=== PATIENT | female | born 1995 | race Caucasian/White ===

== ENCOUNTER 2020-09-20 16:08 | Emergency (ER) | payer OTHER, SELFPAY ==
[2020-09-20 16:09] VITALS: BP 155/86; PULSE 112; RESP 14; TEMP 37.1; O2SAT 100; BMI 35.6
--- NOTE | 2020-09-20 17:54 | EKG12_ITS ---
Test Reason : DIZZINESS Blood Pressure : / mmHG Vent. Rate : 093 BPM Atrial Rate : 093 BPM P-R Int : 160 ms QRS Dur : 098 ms QT Int : 352 ms P-R-T Axes : 040 032 021 degrees QTc Int : 437 ms Normal sinus rhythm Normal ECG Confirmed by TOMÁS SENA, LESLIE ([id number]), health editor MILENA ACOSTA ([id number]) on 09/25/2020 9:36:02 AM Referred By: STUART Confirmed By:LESLIE ENGLAND MD
--- NOTE | 2020-09-20 17:55 | EX.ED.DYSGE1 ---
HPI History of Present Illness Chief Complaint: Dizziness Narrative Narrative: Patient presenting with 4 years of dizziness/lightheadedness. patient states that the symptoms are intermittent. Patient states he initially followed up with a primary care physician and was referred to neurology who told her she probably has POTS syndrome. She states that she was tired of seeing doctors with no diagnosis and decided not to see anybody for the last few years. Patient states that her lightheadedness/dizziness started today. She does describe it as both vertiginous and lightheadedness. She complains of generalized weakness. She is able to ambulate with a steady gait. Denies fever or chills. Denies headache or neck pain. Patient denies paresthesias. PFSH PFSH Home Medications meclizine 25 mg PO TID PRN #30 tab 09/20/20 [Rx Last Taken Unknown] Allergy/AdvReac Type Severity Reaction Status Date / Time No Known Allergies Allergy Verified 09/20/20 16:11 Social History Smoking Status: Never smoker ROS ROS ED Constitutional Constitutional ED: Denies chills, fever(s) or weight loss Eyes Eyes: Denies blurry vision or diplopia ENT ENT ED: Denies rhinorrhea or sore throat Cardiovascular Cardiovascular: Denies chest pain or palpitations Respiratory/Chest Respiratory/Chest: Denies cough, dyspnea or sputum Gastrointestinal Gastrointestinal: Reports nausea; Denies abdominal pain, constipation, diarrhea or vomiting Genitourinary Genitourinary ED: Denies dysuria or hematuria Musculoskeletal Musculoskeletal: Denies arthralgias, back pain, myalgias or neck pain Integumentary Denies abscess or rash Neurologic Neurologic: Reports headache(s); Denies paresthesias EXAM Physical Exam Const Vital Signs: 09/20/20 16:09 09/20/20 17:48 09/20/20 18:34 Temperature 98.8 F Temperature Source Temporal Pulse Rate 112 H Pulse Rate [Lying] 82 Pulse Rate [Sitting] 97 Pulse Rate [Standing] 99 Respiratory Rate 14 Respiratory Effort Normal Non-Labored Blood Pressure 155/86 H Blood Pressure [Lying] 131/71 H Blood Pressure [Sitting] 138/84 H Blood Pressure [Standing] 149/88 H Blood Pressure Mean 109 Blood Pressure Mean [Lying] 91 Blood Pressure Mean [Sitting] 102 Blood Pressure Mean [Standing] 108 Pulse Ox 100 Oxygen Delivery Method Room Air 09/20/20 19:08 09/20/20 20:18 09/20/20 20:47 Temperature Temperature Source Pulse Rate 85 80 Pulse Rate [Lying] Pulse Rate [Sitting] Pulse Rate [Standing] Respiratory Rate 16 16 16 Respiratory Effort Blood Pressure 149/88 H 116/85 H 116/85 H Blood Pressure [Lying] Blood Pressure [Sitting] Blood Pressure [Standing] Blood Pressure Mean 108 95 Blood Pressure Mean [Lying] Blood Pressure Mean [Sitting] Blood Pressure Mean [Standing] Pulse Ox 98 100 100 Oxygen Delivery Method Room Air Positive well nourished General Appearance ED: NAD AMAN Reports moist mucous membranes Negative for trauma Eyes PERRL and EOMs intact bilaterally Eyes Narrative: Nystagmus bilaterally with modified [place]-Hallpike exam Neck no lymphadenopathy and supple General: Negative for tenderness Resp normal respiratory effort and clear to auscultation bilaterally Cardio regular rate and regular rhythm Extremity normal to inspection General Extremety ED: Negative for edema or tenderness General Extremity: Negative for edema Neuro oriented x3, CN's II-XII intact bilaterally and no sensory deficits noted Sensorium / Orientation: alert Motor Exam: strength 5/5 throughout Psych mental status grossly normal Attitude: No agitated Mood & Affect: Negative for anxious Skin no rashes or lesions noted and no wounds MDM MDM MDM Narrative Medical decision making narrative: Patient does have some reproducible vertiginous symptoms on examination however she also complains of lightheadedness. Orthostatics were performed and her heart rate does go up when she stands however her blood pressures remained stable. Patient's blood work-up is unremarkable. Troponin negative. Electrolytes and renal function are normal. hCG negative. Patient felt improvement with meclizine and Phenergan. She is no longer dizzy at this time. Patient will be sent home with prescription for meclizine. She is given follow-up outpatient as she has not seen a physician in a while. Patient given return precautions. Impression: 1. Vertigo Lab Data Attestation: I reviewed the patient's lab results. Labs: Laboratory Results - last 24 hr 09/20/20 09/20/20 09/20/20 18:05 18:05 18:32 WBC 9.9 RBC 4.46 Hgb 12.8 Hct 39.9 MCV 89.5 MCH 28.7 MCHC 32.1 RDW Std Deviation 39.3 RDW Coeff of Edwin 12.1 Plt Count 325 MPV 9.8 Immature Gran % (Auto) 0.600 Neut % (Auto) 66.3 Lymph % (Auto) 24.0 [place] % (Auto) 6.9 Eos % (Auto) 1.7 Baso % (Auto) 0.5 Absolute Neuts (auto) 6.5 Absolute Lymphs (auto) 2.36 Nucleated RBC % 0 Sodium 140 Potassium 3.9 Chloride 109 H Carbon Dioxide 24.0 Anion Gap 7 BUN 10 Creatinine 0.76 Estim Creat Clear Calc 106.85 Est GFR (MDRD) Af Amer 120 Est GFR (MDRD) Non-Af 99 BUN/Creatinine Ratio 13.2 Glucose 106 Calcium 9.4 Troponin I High Sens < 3.0 L Urine Color Yellow Urine Clarity Clear Urine pH 7.0 Ur Specific [place] 1.010 Urine Protein Negative Urine Glucose (UA) Normal Urine Ketones Negative Urine Occult Blood Negative Urine Nitrite Negative Urine Bilirubin Negative Urine Urobilinogen Normal Ur Leukocyte Esterase Negative Urine RBC 0 SEEN Urine WBC 0 SEEN Ur Squamous Epith Cells 0 SEEN Urine Bacteria RARE Urine Mucus 0 SEEN Urine Test Negative Radiography Diagnostic Testing: Radiology Impression Chest X-Ray 09/20/20 18:50 IMPRESSION: No radiographic evidence of acute cardiopulmonary disease. at 2002 Reported and signed by: Dean Armstrong MD Electronically Signed: Dean Armstrong MD at 20:02 EDT Tel , Service support , Discharge Plan Triage Chief Complaint: Dizziness ED Provider: Cj Chin Dx/Rx/DC Orders Instructions: ED BPV Vertigo Prescriptions: New meclizine 25 mg tablet 25 mg PO TID PRN (Reason: dizziness) Qty: 30 RF: 0 Primary Care Provider: Care Physician,No Primary Referrals: Allyson Gonzalez MD [STAFF PHYSICIAN] - As Needed Care Physician,No Primary [Primary Care Provider] - Disposition Disposition: Home, Self Care
[2020-09-20] MEDS: proMETHazine 25 MG Tablet PO (18:06)
[2020-09-20] MEDS: Meclizine HCl 25 MG Tablet PO (18:06)
[2020-09-20 18:12] LABS: Absolute Lymphocyte Count 2.36 X10^3/uL (0.83-4.51); Absolute Neutrophil Count 6.5 X10^3/uL (2.0-7.7); Basophil# 0.05 X10^3/uL; Basophil% 0.5 % (0-1); Eosinophil# 0.17 X10^3/uL; Eosinophils% 1.7 % (0-5); Hematocrit 39.9 % (37-47); Hemoglobin 12.8 g/dL (12.0-15.0); Lymphocyte # 2.36 X10^3/ul (0.83-4.51); Mean Corp Hgb Conc 32.1 g/dL (32-36); Mean Corpuscular Hgb 28.7 pg (27.0-32.0); Mean Corpuscular Volume 89.5 fL (81-99); Mean Platelet Vol. 9.8 fl (6.2-12.0); Monocyte# 0.68 X10^3/uL; Monocyte% 6.9 % (0-10); NRBC Flagged by Analyzer 0 % (0-5); Neutrophil # 6.53 X10^3/uL (2.7-7.7); Neutrophil % 66.3 % (47-70); Platelet Count 325 K/mm3 (150-450); RBC Distribution Width CV 12.1 % (11.6-14.6); RBC Distribution Width SD 39.3 fl (35.1-43.9); Red Blood Count 4.46 M/mm3 (4.2-5.4); White Blood Count 9.9 K/mm3 (4.4-11.0)
[2020-09-20 18:28] LABS: Anion Gap 7 (5-15); BUN 10 mg/dL (7-18); BUN/Creat Ratio 13.2 RATIO (10-20); Calcium,Total 9.4 mg/dL (8.5-10.1); Chloride 109 mmol/L (98-107); Creatinine, Serum 0.76 mg/dL (0.55-1.02); EST Glomerular Filtration Rate 99 mL/min (>60); Est Glom Filt Rate - Afr Amer 120 mL/min (>60); Estimated Creatinine Clearance 106.85 ml/min; Glucose 106 mg/dL (74-106); Potassium 3.9 mmol/L (3.5-5.1); Sodium Level 140 mmol/L (136-145); Troponin-I HS < 3.0 pg/mL (3.0-53.7)
[2020-09-20 18:34] VITALS: BP 131/71; BP 138/84; BP 149/88; PULSE 82; PULSE 97; PULSE 99
[2020-09-20 18:46] LABS: Mucous, Urine 0 SEEN /hpf (<or=2+); Red Blood Cells-Urine 0 SEEN /hpf (0-5); Squamous Epithelial Cells - UA 0 SEEN /hpf (5-10); White Blood Cells 0 SEEN /hpf (0-5)
--- NOTE | 2020-09-20 18:50 | RAD_ITS ---
HISTORY: weakness EXAMINATION/TECHNIQUE: XR Chest 1 View: Portable upright AP chest x-ray COMPARISON: 01/21/17 FINDINGS: LINES/DEVICES: None. LUNGS: No consolidation, edema or effusion. No pneumothorax. MEDIASTINUM AND CARDIOVASCULAR STRUCTURES: Cardiac silhouette not enlarged. Central airways and mediastinal contour are unremarkable. BONES AND SOFT TISSUES: No acute bony abnormalities. RAD/Chest 1 View (Portable) IMPRESSION: No radiographic evidence of acute cardiopulmonary disease. at 2003 Reported and signed by: Dean Armstrong MD Electronically Signed: Dean Armstrong MD at 20:02 EDT Tel , Service support ,
[2020-09-20 18:53] LABS: Color, Urine Yellow (Yellow); Glucose, Dipstick Normal (Normal); Ketone-Dipstick Negative (Negative); Leukocyte Esterase-Dipstick Negative /ul (Negative); Nitrite-Dipstick Negative (Negative); Occult Blood-Urine Negative /ul (Negative); Protein-Dipstick Negative (Negative); Urine Bilirubin Dipstick Negative (Negative); Urine Clarity Clear (Clear); Urine Urobilinogen Normal (Normal)
[2020-09-20 19:08] VITALS: BP 149/88; RESP 16; O2SAT 98
[2020-09-20 19:11] LABS: Bacteria RARE /hpf (None Seen)
[2020-09-20 19:12] LABS: Internal QC Validated? YES +Cl - CLEAR BKGD; Pregnancy, Urine Negative Negative
[2020-09-20 20:18] VITALS: BP 116/85; PULSE 85; RESP 16; O2SAT 100
[2020-09-20 20:47] VITALS: BP 116/85; PULSE 80; RESP 16; O2SAT 100
== END 2020-09-20 21:01 | disposition home or self-care (01) ==
PROVIDERS: Emergency Provider Student in an Organized Health Care Education/Training Program
DX: R42 Dizziness and giddiness (principal)
CPT/HCPCS: 71045; 80048; 81001; 81025; 84484; 85025; 93005; 99284; A4216

== ENCOUNTER → 2022-11-26 | Outpatient (CLI) | payer OTHER, SELFPAY ==
[2022-11-28 22:06] LABS: Chlamydia By Nucleic Acid AMP Negative (Negative); Gonococcus By Nucleic Acid AMP Negative (Negative)
== END | disposition home or self-care (01) ==
PROVIDERS: Visit Provider Obstetrics & Gynecology
DX: Z34.90 Encounter for supervision of normal pregnancy, unspecified, unspecified trimester (principal)
CPT/HCPCS: 87086; 87088; 87491; 87591

== ENCOUNTER → 2022-12-12 | Outpatient (CLI) | payer OTHER, SELFPAY ==
[2022-12-12 11:02] LABS: Absolute Neutrophil Count 8.3 X10^3/uL (2.0-7.7); Basophil# 0.04 X10^3/uL; Basophil% 0.4 % (0-1); Eosinophil# 0.09 X10^3/uL; Eosinophils% 0.8 % (0-5); Hematocrit 36.1 % (37-47); Hemoglobin 11.8 g/dL (12.0-15.0); Mean Corp Hgb Conc 32.7 g/dL (32-36); Mean Corpuscular Hgb 29.6 pg (27.0-32.0); Mean Corpuscular Volume 90.5 fL (81-99); Mean Platelet Vol. 9.9 fl (6.2-12.0); Monocyte# 0.42 X10^3/uL; Monocyte% 3.7 % (0-10); NRBC Flagged by Analyzer 0 % (0-5); Neutrophil # 8.25 X10^3/uL (2.7-7.7); Neutrophil % 72.5 % (47-70); Platelet Count 313 K/mm3 (150-450); RBC Distribution Width CV 12.4 % (11.6-14.6); RBC Distribution Width SD 40.6 fl (35.1-43.9); Red Blood Count 3.99 M/mm3 (4.2-5.4); White Blood Count 11.4 K/mm3 (4.4-11.0)
[2022-12-12 12:00] LABS: HIV - WCH Non-Reactive (Nonreactive); Hepatitis B Surface Antigen Non-Reactive (Nonreactive); Hepatitis C Antibody Non-Reactive (Nonreactive); Rubella IgG Reactive (Nonreactive); Syphilis Antibodies Non-reactive
[2022-12-12 19:03] LABS: Hemoglobin A1c 5.3 % (3.8-5.6)
== END | disposition home or self-care (01) ==
LOC: PAVLAB 10:47
PROVIDERS: Referring Provider Obstetrics & Gynecology; Visit Provider Obstetrics & Gynecology
DX: Z34.90 Encounter for supervision of normal pregnancy, unspecified, unspecified trimester (principal)
CPT/HCPCS: 36415; 83036; 85025; 86703; 86762; 86780; 86803; 86850; 86900; 86901; 87340

== ENCOUNTER → 2023-03-27 | Outpatient (CLI) | payer OTHER, SELFPAY ==
--- OUTSIDE RECORDS SUMMARY | 2023-03-27 07:35 | XMS RPT_ITS | CCD ---
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 Encounter Wt Readings: Date: Wt: 02/19/2021 230 lb (104.3 kg) 11/13/2020 227 lb (103 kg) Physical Exam HENT: Head: Normocephalic. Eyes: Pupils: Pupils are equal, round, and reactive to light. Cardiovascular: Rate and Rhythm: Normal rate and regular rhythm. Pulses: Radial pulses are 2+ on the right side and 2+ on the left side. Dorsalis pedis pulses are 2+ on the right side and 2+ on the left side. Heart sounds: Normal heart sounds, S1 normal and S2 normal. Pulmonary: Effort: Pulmonary effort is normal. No accessory muscle usage or respiratory distress. Breath sounds: Normal breath sounds. Abdominal: General: Bowel sounds are normal. Palpations: Abdomen is soft. Musculoskeletal: General: Normal range of motion. Cervical back: Normal range of motion. Right lower leg: No edema. Left lower leg: No edema. Skin: General: Skin is warm and dry. Neurological: Mental Status: She is alert and oriented t (more content not included)... [facility] 02-19-2021 Note HNO ID: [id number] Author: Shelley Thomas APRN.QUALITY CONTROL TECHNICIAN Service: ? Author Type: Nurse Practitioner Type: Progress Notes Filed: 02/21/2021 10:15 AM Note Text: [facility] Cardiology ([facility]) [address] [facility] [id number] OUTPATIENT VISIT February 19, 2021 2:00 PM Chief Complaint Patient presents with: New Patient: Lightheaded, palpatations History of Present Illness: Long Garcia is a very pleasant 25 year old female who presents for cardiology evaluation. She has a history of lightheadedness and palpitations for about the past 4 years. She has been evaluated by neurology in the past with a tilt table test and was told she may have POTS. Report is unavailable for review. She presents today due to ongoing symptoms. She is recently completed a monitor, unremarkable for arrhythmia. She is also completed an echocardiogram which revealed grossly normal structure and function. She explains she can have palpitations but not necessarily with position change. She also has constant lightheadedness on some days but not others. Lightheadedness does not correlate with position change. She cannot think of any exacerbating triggers for her symptoms or anything that improves symptoms. She reports staying hydrated. Has never been noted to have low blood pressures. She has a mild discomfort in her left flank area that does not correlate with exertion or other symptoms. We reviewed conservative treatments for POTS. We are going to try very low-dose propranolol for symptom management. Could consider Florinef or Corlanor for true POTs with orthostatic hypotension. I also recommend she repeat a neurology evaluation as she is very limited by her lightheadedness. PAST MEDICAL HISTORY Diagnosis Date - Vesicoureteral reflux PAST SURGICAL HISTORY Procedure Laterality Date - TOOTH EXTRACTION wisdom teeth - URINARY SURGERY HX VUR FAMILY HISTORY Problem Relation Age of Onset - Hypertension Mother - Hyperlipidemia Mother - other (prediabetes) Mother - other (prediabetes) Father - Hypertension Maternal Grandmother - Hyperlipidemia Maternal Grandmother - other (cva) Maternal Grandmother - Thyroid Maternal Grandfather - Celiac Disease Maternal Grandfather - other (tobacco use) Maternal Grandfather - Thyroid Paternal Grandmother - other (atrial fib) Paternal Grandmother - Breast Cancer Paternal Grandmother - Diabetes Paternal Grandmother - Diabetes Paternal Grandfather - Hypertension Paternal Grandfather - Leukemia Paternal Grandfather - Thyroid Cancer Paternal Aunt - Thyroid Cancer Paternal Aunt - Thyroid Maternal Aunt Social History Tobacco Use - Smoking status: Never Smoker - Smokeless tobacco: Never Used Vaping Use - Vaping Use: Never used Substance Use Topics - Alcohol use: Not Currently - Drug use: Not Currently Cardiac Risk Factors: ALLERGIES No Known Allergies Medications: Current Outpatient Medications Medication Sig Dispense Refill - propranolol (INDERAL) 20 mg tablet Take 0.5 tablets by mouth twice daily. 15 tablet 0 Current Facility-Administered Medications Medication Dose Route Frequency Provider Last Rate Last Admin - perflutren lipid microspheres 1.3 mL in NaCl (PF) 0.9% 10 mL injection (DEFINITY) INTRAVENOUS DIRECTED PRN Rachel Moon, WRAPPER SORTER.QUALITY CONTROL TECHNICIAN - sodium chloride 0.9 % (flush) 10 mL (BD POSIFLUSH) 10 mL INTRAVENOUS DIRECTED PRN Rachel Moon, WRAPPER SORTER.QUALITY CONTROL TECHNICIAN Review of Systems Constitutional: Negative for chills, diaphoresis, fever, malaise/fatigue and weight loss. HENT: Negative for congestion, ear pain, nosebleeds, sinus pain and sore throat. Eyes: Negative for pain. Respiratory: Negative for cough, shortness of breath and wheezing. Cardiovascular: Positive for palpitations. Negative for chest pain, orthopnea, claudication, leg swelling and PND. Gastrointestinal: Negative for abdominal pain, blood in stool, constipation, diarrhea, heartburn, melena, nausea and vomiting. Genitourinary: Negative for hematuria. Musculoskeletal: Negative for falls. Neurological: Positive for dizziness. Negative for tingling, sensory change, speech change, focal weakness, loss of consciousness, weakness and headaches. Endo/Heme/Allergies: Does not bruise/bleed easily. Psychiatric/Behavioral: Negative for depression, memory loss and suicidal ideas. The patient is not nervous/anxious and does not have insomnia. Physical Examination: Vitals:BP 140/74 Pulse 96 Ht 5' 6 (1.68m) Wt 230 lb (104.3kg) LMP 10/30/2020 BMI 37.14 kg/(m2). BP w/Orthostatic Vitals Date and Time Orthostatic BP Orthostatic Pulse BP Pulse BP Position BP Site BP Cuff Size 02/19/21 1359 -- -- 140/74 96 Sitting Right Arm Large Adult Last 2 Encounter Wt Readings: Date: Wt: 02/19/2021 230 lb (104.3 kg) 11/13/2020 227 lb (103 kg) Physical Exam HENT: (more content not included)... [facility] 11-17-2020 Note HNO ID: [id number] Author: Ashlee Golden MD Service: Interventional Cardiology Author Type: Physician Type: Procedures Filed: 12/21/2020 10:21 AM Note Text: Patient Name: Long Garcia : 1995 Ordering Provider: RACHEL MOON Indication: R00.2 Palpitations Type of Monitor: Extended Monitoring-Zio Patch Enrollment Dates: 11/23/2020-12/07/2020 [facility] 11-13-2020 Note HNO ID: [id number] Author: Rachel Moon APRN.QUALITY CONTROL TECHNICIAN Service: ? Author Type: Nurse Practitioner Type: Progress Notes Filed: 11/13/2020 7:50 PM Note Text: This is a 25 year old female who presents today with: Patient presents with: Dizziness: x 4 years, has been to Neurology and had tilt table testing done, was told could be POTS but no formal dx HISTORY OF PRESENT ILLNESS: Long Garcia is a 25 year old female. Patient presents with: Dizziness: x 4 years, has been to Neurology and had tilt table testing done, was told could be POTS but no formal dx Has been having lightheadedness for the last 4 years. She has been to doctors. Has been to ENT, had some hearing tests. Doesn't think found vertigo. Went to neurology. Sent for a tilt-table tests. Questioned if she could have POTS. Refers that she never passed out from symptoms. Advised to take salt pills -- which made her sick/vomit. Hasn't had any further testing in the last two years. Initally seemed to improve, but since November/December of last year, symptoms seemed to worsen again. Now she is trying to figure it out again. Refers when she is lightheaded, she will tire out quickly. No spinning. Refers that it just feels like she is unsteady. Will feel like she is moving to the side. When stationary in a car, will feel like the car is going backwards. Refers that sometimes will feel like it is higher. Sometimes will get a pain in the left chest wall -- tightness. Refers that she will get hot with it. Will get some clamminess. Occ SOB. Refers that she will usually lay down, which will helps. Refers usually will happen when standing up. Tilt table through the [facility]. Dr. Lance w/ [facility]. Neurology. Has never had an echo. Has never had a home monitor. PAST MEDICAL HISTORY: PAST MEDICAL HISTORY Diagnosis Date - Vesicoureteral reflux PAST SURGICAL HISTORY Procedure Laterality Date - TOOTH EXTRACTION wisdom teeth - URINARY SURGERY HX VUR ALLERGIES Patient has no known allergies. MEDICATIONS No current outpatient medications on file. No current facility-administered medications for this visit. FAMILY HISTORY Problem Relation Age of Onset - Hypertension Mother - Hyperlipidemia Mother - other (prediabetes) Mother - other (prediabetes) Father - Hypertension Maternal Grandmother - Hyperlipidemia Maternal Grandmother - other (cva) Maternal Grandmother - Thyroid Maternal Grandfather - Celiac Disease Maternal Grandfather - other (tobacco use) Maternal Grandfather - Thyroid Paternal Grandmother - other (atrial fib) Paternal Grandmother - Breast Cancer Paternal Grandmother - Diabetes Paternal Grandmother - Diabetes Paternal Grandfather - Hypertension Paternal Grandfather - Leukemia Paternal Grandfather - Thyroid Cancer Paternal Aunt - Thyroid Cancer Paternal Aunt - Thyroid Maternal Aunt Social History Tobacco Use - Smoking status: Never Smoker - Smokeless tobacco: Never Used Vaping Use - Vaping Use: Never used Substance Use Topics - Alcohol use: Not Currently - Drug use: Not Currently EXAM: BP 128/90 Pulse 80 Resp 18 Wt 103 kg (227 lb) LMP 10/30/2020 PHYSICAL EXAM: General Appearance: Well appearing, alert, in no acute distress, well-hydrated, well nourished.. Skin: Skin color, texture, turgor normal, no suspicious rashes or lesions. Head: Normocephalic, no masses, lesions, tenderness or abnormalities. Eyes: Anicteric sclera. Pupils are equally round and reactive to light. Extraocular movements are intact. . Ears: External ears normal, canals clear, Normal TMs bilaterally. Oropharynx: Lips, mucosa, and tongue normal, teeth and gums normal, oropharynx normal. Neck: Supple, no adenopathy; thyroid symmetric, normal size, no bruits. Lungs: Lungs clear to auscultation. No wheezing, rhonchi, rales.. Heart: RRR without murmur, gallop, or rubs. No ectopy. Abdomen: Abdomen soft, non-tender. Bowel sounds normal. No masses, organomegaly. Extremities: No deformities, edema, skin discoloration, clubbing or cyanosis. Good capillary refill. . Neurologic: Gait normal. ASSESSMENT/PLAN: 1. Lightheadedness - ICD9: 780.4, ICD10: R42 (primary diagnosis) Get up-to-date labs. She reports that neurology previously was suspecting POTS. She is unsure what tilt table showed. We will go ahead and refer to cardiology for further evaluation. EKG - SR without ST changes or ectopy. - CBC + DIFF - COMP METABOLIC PANEL - FERRITIN BLD - IRON + TIBC - ECHO - PERFLUTREN LIPID MICROSPHERES 1.1 MG/ML INJECTION IN NS 10 ML - SODIUM CHLORIDE 0.9 % (FLUSH) INJECTION SYRINGE - CONSULT TO CARDIOLOGY 2. Palpitations - ICD9: 785.1, ICD10: R00.2 - ECG COMPLETE - TSH BLD - T4 FREE/FREE THYROX - CBC + DIFF - COMP METABOLIC PANEL - MAGNESIUM BLD - FERRITIN BLD - IRON + TIBC - ECHO - PERFLUTREN LIPID MICROSPHERES 1.1 MG/ML INJECTION IN (more content not included)... [facility] Orthostatic lightheadedness- Primary Dizziness and giddiness [facility] Screening, , for malformation by ultrasound Encounter for routine screening for malformation using ultrasonics documented in this encounter [facility] Summary Purpose Family History No Family History Records FoundNo Family History Records FoundNo Family History Records FoundNo Family History Records FoundNo Family History Records Found Advance Directives No Advanced Directives Records FoundNo Advanced Directives Records FoundNo Advanced Directives Records FoundNo Advanced Directives Records FoundNo Advanced Directives Records Found Medications Administered Section Inactive Administered Medications - up to 3 most recent administrations Medication Order MAR Action Action Date Dose Rate Site acetylcholine 10% solution - cchs compounding 20 mL, IRRIGATION, ONE TIME, 1 dose, Starting on Fri04/13/21 at 1013, Until 05/28/21 at 1539, Protect from Light. Refrigerate Given 05/28/2021 3:39 PM EDT 20 mL Additional Source Comments INFORMATION SOURCE (unrecogn ized section and content) DATE CREATED AUTHOR AUTHOR'S ORGANIZ ATION 08/11/2017 [facility] DATE CREATED AUTHOR AUTHOR'S ORGANIZ ATION 08/12/2017 [facility] DATE CREATED AUTHOR AUTHOR'S ORGANIZ ATION 07/18/2021 [facility] DATE CREATED AUTHOR AUTHOR'S ORGANIZ ATION 03/16/2023 [facility] Source Comments (unrecognize d section and content) In the event this informatio n is protected by the Federal Confidentiality of Alcohol and Drug Abuse Patient Records regulations: The Federal rules restrict any use of the information to criminally investigate or prosecute any alcohol or drug abuse patient.[facility] the event this information is protected by the Federal Confidentiality of Alcohol and Drug Abuse Patient Records regulations: The Federal rules restrict any use of the information to criminally investigate or prosecute any alcohol or drug abuse patient.[facility] the event this information is protected by the Federal Confidentiality of Alcohol and Drug Abuse Patient Records regulations: The Federal rules restrict any use of the information to criminally investigate or prosecute any alcohol or drug abuse patient.[facility] Reason for Visit (unrecogniz ed section and content) Specialty Diagnoses / Procedures Referred By Contsherri t Referred To Contact Neurology / NEUROMUSCULAR Diagnoses Encounter for general adult medical examination without abnormal findings VM QSARt Procedures TESTING AUTONOMIC NERVOUS SYSTEM FUNCTION NEUR QSART Verna Carter MD [address] [place] [address] [facility] [address] [place] [address] Referral ID Status Reason Start Date Expiration Date Visits Requested Visits Authorized [id number] Authorized Clearance Not Met - Admin/Chairm an/Director Advise to Postpone/Res chedule or Not Proceed 04/18/2021 05/08/2022 4 4 Care Teams (unrecognized sec tion and content) Charge Nurse Relationship Specialty Start Date End Date Wanda Fritz [id number] [place], [place] [id number] PCP - General Pediatrics 01/21/17 Charge Nurse Relationship Specialty Start Date End Date Wanda Fritz [address] [place] [address] PCP - General Pediatrics 01/21/17 Charge Nurse Relationship Specialty Start Date End Date No Primary Care[place] [address] PCP - General Pediatrics 01/30/23 FOR RECORDS PERTAINING TO PATIENTS WHO ARE OR HAVE BEEN ENROLLED IN A CHEMICAL DEPENDENCY/SUBSTANCEABUSE PROGRAM, SOME INFORMATION MAY BE OMITTED. This clinical summary was aggregated from multiple sources. Caution should be exercised in using it in the provision of clinical care. This summary normalizes information from multiple sources, and as a consequence, information in this document may materially change the coding, format and clinical context of patient data. In addition, data may be omitted in some cases. CLINICAL DECISIONS SHOULD BE BASED ON THE PRIMARY CLINICAL RECORDS. [facility] [employer] [facility]. provides no warranty or guarantee of the accuracy or completeness of information in this document.
[2023-03-27 08:14] LABS: Absolute Lymphocyte Count 1.76 X10^3/uL (0.83-4.51); Absolute Neutrophil Count 7.8 X10^3/uL (2.0-7.7); Basophil# 0.04 X10^3/uL; Basophil% 0.4 % (0-1); Eosinophil# 0.11 X10^3/uL; Eosinophils% 1.1 % (0-5); Hemoglobin 10.3 g/dL (12.0-15.0); Lymphocyte # 1.76 X10^3/ul (0.83-4.51); Lymphocyte % 17.2 % (19-41); Mean Corp Hgb Conc 32.2 g/dL (32-36); Mean Corpuscular Hgb 29.4 pg (27.0-32.0); Mean Corpuscular Volume 91.4 fL (81-99); Mean Platelet Vol. 10.2 fl (6.2-12.0); Monocyte# 0.42 X10^3/uL; Monocyte% 4.1 % (0-10); NRBC Flagged by Analyzer 0 % (0-5); Neutrophil # 7.83 X10^3/uL (2.7-7.7); Neutrophil % 76.3 % (47-70); Platelet Count 320 K/mm3 (150-450); RBC Distribution Width CV 12.8 % (11.6-14.6); RBC Distribution Width SD 41.7 fl (35.1-43.9); White Blood Count 10.3 K/mm3 (4.4-11.0)
[2023-03-27 08:34] LABS: Glucose Challenge Gest 1H 50g 178 mg/dL (70-140)
[2023-03-27 09:15] LABS: HIV - WCH Non-Reactive (Nonreactive); Syphilis Antibodies Non-reactive
== END | disposition home or self-care (01) ==
LOC: PAVLAB 07:33
PROVIDERS: Referring Provider Nurse Practitioner Women's Health; Visit Provider Nurse Practitioner Women's Health
DX: Z34.90 Encounter for supervision of normal pregnancy, unspecified, unspecified trimester (principal)
CPT/HCPCS: 36415; 82950; 85025; 86703; 86780

== ENCOUNTER → 2023-05-13 | Outpatient (CLI) | payer OTHER, SELFPAY ==
[2023-05-13 08:54] LABS: Absolute Lymphocyte Count 1.87 X10^3/uL (0.83-4.51); Basophil# 0.03 X10^3/uL; Basophil% 0.3 % (0-1); Eosinophil# 0.11 X10^3/uL; Eosinophils% 1.1 % (0-5); Hematocrit 33.8 % (37-47); Lymphocyte # 1.87 X10^3/ul (0.83-4.51); Lymphocyte % 19.3 % (19-41); Mean Corp Hgb Conc 32.5 g/dL (32-36); Mean Corpuscular Hgb 28.6 pg (27.0-32.0); Mean Platelet Vol. 9.9 fl (6.2-12.0); Monocyte% 6.2 % (0-10); NRBC Flagged by Analyzer 0 % (0-5); Neutrophil # 7.02 X10^3/uL (2.7-7.7); Neutrophil % 72.4 % (47-70); Platelet Count 339 K/mm3 (150-450); RBC Distribution Width CV 13.3 % (11.6-14.6); RBC Distribution Width SD 42.8 fl (35.1-43.9); Red Blood Count 3.84 M/mm3 (4.2-5.4); White Blood Count 9.7 K/mm3 (4.4-11.0)
== END | disposition home or self-care (01) ==
LOC: PAVLAB 08:37
PROVIDERS: Referring Provider Advanced Practice Midwife; Visit Provider Advanced Practice Midwife
DX: O99.019 Anemia complicating pregnancy, unspecified trimester (principal); Z3A.00 Weeks of gestation of pregnancy not specified
CPT/HCPCS: 36415; 85025

== ENCOUNTER → 2023-05-28 | Outpatient (CLI) | payer OTHER, SELFPAY | END | disposition home or self-care (01) | LOC: LABSPEC 17:45 | PROVIDERS: Visit Provider Obstetrics & Gynecology | DX: Z34.00 Encounter for supervision of normal first pregnancy, unspecified trimester (principal) | CPT/HCPCS: 87081 ==

== ENCOUNTER 2023-06-19 15:42 | Outpatient (CLI) | payer OTHER, SELFPAY ==
[2023-06-19 16:12] VITALS: BMI 37.9
[2023-06-19 16:24] VITALS: BP 131/74; PULSE 86
[2023-06-19 16:25] VITALS: TEMP 36.4
--- NOTE | 2023-06-19 17:14 | OB.TRI.PN_ITS ---
Progress Notes Progress Note: Patient presents for triage evaluation secondary to decresaed movement FHT: 140 Moderate variability reactive no decelerations category I tracing [place]: irregular Contractions Assessment and plan: decreased movement- now feeling some, Reactive NST, reassuring maternal and status patient discharged to home to follow-up as scheduled, reviewed kick count precautions. See problem list details for additional plan information. Charges/Coding Procedures Urinary/Genital 52xxx-59xxx: [id number] non-stress test Interp
== END 2023-06-19 17:15 | disposition home or self-care (01) ==
LOC: WPOUT 15:49 → WP 15:49
PROVIDERS: Referring Provider Obstetrics & Gynecology; Visit Provider Obstetrics & Gynecology
DX: O36.8190 Decreased fetal movements, unspecified trimester, not applicable or unspecified (principal); Z3A.00 Weeks of gestation of pregnancy not specified
CPT/HCPCS: 59050; 99221; G0378

== ENCOUNTER 2023-06-20 21:30 | Outpatient (CLI) | payer OTHER, SELFPAY ==
[2023-06-20 21:51] VITALS: BMI 37.5
[2023-06-20 22:01] VITALS: BP 134/81; PULSE 107
--- NOTE | 2023-06-21 02:22 | OB.TRI.HP_ITS ---
HPI - General General Chief Complaint: contractions HPI Narrative LONG TUTTLE, is a 27 F who presents at 39.6 with contractions discomforts, not worsening. +FM denies LOF/vb Maternal Data Information FLOR Calculator Estimated Delivery Date Method Current WG Current Estimate 06/22/23 LMP (Certain) 39w 6d Other Estimates 06/27/23 Ultrasound #1 39w 1d PFSH PFSH Medical History Congenital abnormality ureter Home Medications multivit-min no.71-iron fum 28 mg-folate no.1 1 mg-dha 300 mg capsule (PNV- [place]) cap PO 11/26/22 [History Last Taken Unknown] blood sugar diagnostic (Blood Glucose Test strips) #120 ea 03/27/23 [Rx Last Taken Unknown] blood-glucose meter #1 ea 03/27/23 [Rx Last Taken Unknown] lancets #200 ea 03/27/23 [Rx Last Taken Unknown] Allergy/AdvReac Type Severity Reaction Status Date / Time No Known Allergies Allergy Verified 06/10/23 08:05 Family History Grandmother Breast cancer, Onset Age: 70 Paternal Thyroid disorder Paternal- hyperthyroid Aunt Cancer Maternal - thyroid Surgical History [place] teeth removed Social History adopted: No household members: spouse current occupational status: employed current occupation: [employer] current occupational exposures/hazards: No pets and animals: Yes (Not managing litterbox while ) pets and animals: cat(s) and dog(s) history of recent travel: No sexually active: Yes Smoking Status: Never smoker alcohol intake: former year quit: 2019 details: Only social /occasional intake before Quit 3 years ago. 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 [employer] History 1 Elective abortions Hx Para 0 Spontaneous abortions Hx # Term Pregnancies Ectopic pregnancies Hx # Pregnancies Multiple births # of living children Visit Details Expected Delivery Route/Plan Labor Preferences- CB/BF classes: enc labor support person: Alberto labor intervention preferences: [] pain management options preferred: limited intervention cut cord/dad catch: cord : yes PP control planned: discussed discussed possible routes of delivery and associated risks: [] special requests: [] Plans Covid status: [] Flu vaccine: no Tdap vaccine: [] Rhogam: na LARC form signed: yes movement and labor precautions reviewed. Problem list reviewed and updated with the most current plan of care details and appropriate orders placed. Relevant counseling for the gestational age provided. Continue routine care and follow up unless otherwise noted in visit notes/problem list details OB Flowsheet Initial Weight: Not Recorded Date -?-?-?-?-?-?-?-?-?-?-?-?- EGA Weight BP Urine Prot -?-?-?-?-?-?-?-?-?--?-?-?- Glucose FHR FuHt Pres Dilation -?-?-?-?-?-?-?-?-?-?-?-?- Effaced St Visit Note 11/26/22 -?-?-?-?-?-?-?-?-?-?-?-?- 10w 2d 228 lb 2 oz 155/88 -?-?-?-?-?-?-?-?-?-?-?-?- 150 -?-?-?-?-?-?-?-?-?-?-?-?- SM- CRL cons wit h lmp 12/27/22 -?-?-?-?-?-?-?-?-?-?-?-?- 14w 5d 226 lb 2 oz 135/86 Nega tive -?-?-?-?-?-?-?-?-?-?-?-?- Negative 159 -?-?-?-?-?-?-?-?-?-?-?-?- JV- no cramping or spotting. Anatomy ultrasound ordered. 01/30/23 -?-?-?-?-?-?-?-?-?-?-?-?- 19w 4d 224 lb 6 oz 134/84 Nega tive -?-?-?-?-?-?-?-?-?-?-?-?- Negative 147 -?-?-?-?-?-?-?-?-?-?-?-?- MH-No VB. Feelin g some flutters. Denies concerns. M US today 02/27/23 -?-?-?-?-?-?-?-?-?-?-?-?- 23w 4d 225 lb 6 oz 134/82 Nega tive -?-?-?-?-?-?-?-?-?-?-?-?- Negative 145 -?-?-?-?-?-?-?-?-?-?-?-?- MH-No VB. Robe Muñiz M. She is feeling much stress due to abnormal US of brain-sees [facility] 03/05. 03/27/23 -?-?-?-?-?-?-?-?-?-?-?-?- 27w 4d 227 lb 118/74 Negative -?-?-?-?-?-?-?-?-?-?-?-?- Negative 156 27 -?-?-?-?-?-?-?-?-?-?-?-?- -No VB, LOF. G ood FM. States sees tx again next week and if still abnormal US of brain will get amnio/NIPT. 28 wk labs pending. 04/16/23 -?-?-?-?-?-?-?-?-?-?-?-?- 30w 3d 229 lb 8 oz 126/80 Nega tive -?-?-?-?-?-?-?-?-?-?-?-?- Negative 145 31 -?-?-?-?-?-?-?-?-?-?-?-?- JV- fasting gluc ose 80-90, 2hr pp levels upper 90s'-110. not needing to modify diet. no lof, vaginal bleeding, or dec fm. 04/28/23 -?-?-?-?-?-?-?-?-?-?-?-?- 32w 1d 227 lb 4 oz 129/83 Nega tive -?-?-?-?-?-?-?-?-?-?-?-?- Negative 142 32 -?-?-?-?-?-?-?-?-?-?-?-?- JV- glucose leve ls same as last visit. has next growth scan tomorrow with MFM. no lof, vaginal bleeding, or dec fm. 05/13/23 -?-?-?-?-?-?-?-?-?-?-?-?- 34w 2d 230 lb 124/80 Negative -?-?-?-?-?-?-?-?-?-?-?-?- Negative 145 35 -?-?-?-?-?-?-?-?-?-?-?-?- KW- no vb/lof/ct x. good fm. BS remain stable. Tdap today. cont growth US q4 weeks. brain normal on last US. 05/28/23 -?-?-?-?-?-?-?-?-?-?-?-?- 36w 3d 232 lb 6 oz 128/81 Nega tive -?-?-?-?-?-?-?-?-?-?-?-?- Negative 147 37 -?-?-?-?-?-?-?-?-?-?-?-?- JV- gbs done jose carlos lee. and tomorrow is follow up us with MFM in [place]. 06/03/23 -?-?-?-?-?-?-?-?-?-?-?-?- 37w 2d 231 lb 6 oz 131/79 Nega tive -?-?-?-?-?-?-?-?-?-?-?-?- Negative 142 38 -?-?-?-?-?-?-?-?-?-?-?-?- JV- last growth ws 48th%. pt states mfm told her she graduated plan for usual 41 week IOL as needed 06/10/23 -?-?-?-?-?-?-?-?-?-?-?-?- 38w 2d 233 lb 131/85 Negative -?-?-?-?-?-?-?-?-?-?-?-?- Negative 145 39 Cephalic 3 -?-?-?-?-?-?-?-?-?-?-?-?- 80 -1 KW- no vb/ lof/ctx. good fm. labor precautions 06/16/23 -?--?-?-?-?-?-?-?-?-?-?-?- 39w 1d 232 lb 129/82 Negative -?-?-?-?-?-?-?-?-?-?-?-?- Negative 140 39 Cephalic 3 -?-?-?-?-?-?-?-?-?-?-?-?- 80 - Sm- no vb lof good fm no regular ctx BS WNL discussed expectant mangement for now, normal growth us and normal BS NST FHR Rate Baby A Baseline: 150 Variability:: Moderate Accelerations:: 15 x 15 Decelerations:: None NST Reactive:: Yes FHR Category:: Category I Assessment & Plan (1) False labor: COMMENT: irregular contraction with unchanged cervical exam. d/c home with precautions. PLAN: Patient presents for triage evaluation secondary to contractions FHT: Moderate variability reactive no decelerations category I tracing [place]: irregular Contractions, mild to occ mod to nursing palpation. Assessment and plan: Reactive NST, reassuring maternal and status patient discharged to home to follow-up in office and return with labor signs. See problem list details for additional plan information. Charges/Coding Procedures Urinary/Genital 52xxx-59xxx: 74112-31 non-stress test Interp Multi Select Codes Urinary/Genital Urinary/Genital CPT Codes: 92481-10 non-stress test Interp
--- NOTE | 2023-06-21 02:22 | OB.TRI.NOTE ---
HPI - General General Chief Complaint: contractions HPI Narrative LONG TUTTLE, is a 27 F who presents at 39.6 with contractions discomforts, not worsening. +FM denies LOF/vb Maternal Data Information FLOR Calculator Estimated Delivery Date Method Current WG Current Estimate 06/22/23 LMP (Certain) 39w 6d Other Estimates 06/27/23 Ultrasound #1 39w 1d PFSH PFSH Medical History Congenital abnormality ureter Home Medications multivit-min no.71-iron fum 28 mg-folate no.1 1 mg-dha 300 mg capsule (PNV-[place]) cap PO 11/26/22 [History Last Taken Unknown] blood sugar diagnostic (Blood Glucose Test strips) #120 ea 03/27/23 [Rx Last Taken Unknown] blood-glucose meter #1 ea 03/27/23 [Rx Last Taken Unknown] lancets #200 ea 03/27/23 [Rx Last Taken Unknown] Allergy/AdvReac Type Severity Reaction Status Date / Time No Known Allergies Allergy Verified 06/10/23 08:05 Family History Grandmother Breast cancer, Onset Age: 70 Paternal Thyroid disorder Paternal- hyperthyroid Aunt Cancer Maternal - thyroid Surgical History [place] teeth removed Social History adopted: No household members: spouse current occupational status: employed current occupation: [employer] current occupational exposures/hazards: No pets and animals: Yes (Not managing litterbox while ) pets and animals: cat(s) and dog(s) history of recent travel: No sexually active: Yes Smoking Status: Never smoker alcohol intake: former year quit: 2019 details: Only social /occasional intake before Quit 3 years ago. 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 1 Elective abortions Hx Para 0 Spontaneous abortions Hx # Term Pregnancies Ectopic pregnancies Hx # Pregnancies Multiple births # of living children Visit Details Expected Delivery Route/Plan Labor Preferences- CB/BF classes: enc labor support person: Alberto labor intervention preferences: [] pain management options preferred: limited intervention cut cord/dad catch: cord : yes PP control planned: discussed discussed possible routes of delivery and associated risks: [] special requests: [] Plans Covid status: [] Flu vaccine: no Tdap vaccine: [] Rhogam: na LARC form signed: yes movement and labor precautions reviewed. Problem list reviewed and updated with the most current plan of care details and appropriate orders placed. Relevant counseling for the gestational age provided. Continue routine care and follow up unless otherwise noted in visit notes/problem list details OB Flowsheet Initial Weight: Not Recorded Date <del>?</del> EGA Weight BP Urine Prot <del>?</del> Glucose FHR FuHt Pres Dilation <del>?</del> Effaced St Visit Note 11/26/22 <del>?</del> 10w 2d 228 lb 2 oz 155/88 <del>?</del> 150 <del>?</del> SM- CRL cons with lmp 12/27/22 <del>?</del> 14w 5d 226 lb 2 oz 135/86 Negative <del>?</del> Negative 159 <del>?</del> JV- no cramping or spotting. Anatomy ultrasound ordered. 01/30/23 <del>?</del> 19w 4d 224 lb 6 oz 134/84 Negative <del>?</del> Negative 147 <del>?</del> MH-No VB. Feeling some flutters. Denies concerns. MFM US today 02/27/23 <del>?</del> 23w 4d 225 lb 6 oz 134/82 Negative <del>?</del> Negative 145 <del>?</del> -No VB. Good FM. She is feeling much stress due to abnormal US of brain-sees [facility] 03/05. 03/27/23 <del>?</del> 27w 4d 227 lb 118/74 Negative <del>?</del> Negative 156 27 <del>?</del> -No VB, LOF. Good FM. States sees tx again next week and if still abnormal US of brain will get amnio/NIPT. 28 wk labs pending. 04/16/23 <del>?</del> 30w 3d 229 lb 8 oz 126/80 Negative <del>?</del> Negative 145 31 <del>?</del> JV- fasting glucose 80-90, 2hr pp levels upper 90s'-110. not needing to modify diet. no lof, vaginal bleeding, or dec fm. 04/28/23 <del>?</del> 32w 1d 227 lb 4 oz 129/83 Negative <del>?</del> Negative 142 32 <del>?</del> JV- glucose levels same as last visit. has next growth scan tomorrow with MFM. no lof, vaginal bleeding, or dec fm. 05/13/23 <del>?</del> 34w 2d 230 lb 124/80 Negative <del>?</del> Negative 145 35 <del>?</del> KW- no vb/lof/ctx. good fm. BS remain stable. Tdap today. cont growth US q4 weeks. brain normal on last US. 05/28/23 <del>?</del> 36w 3d 232 lb 6 oz 128/81 Negative <del>?</del> Negative 147 37 <del>?</del> JV- gbs done today. and tomorrow is follow up us with MFM in [place]. 06/03/23 <del>?</del> 37w 2d 231 lb 6 oz 131/79 Negative <del>?</del> Negative 142 38 <del>?</del> JV- last growth ws 48th%. pt states mfm told her she graduated plan for usual 41 week IOL as needed 06/10/23 <del>?</del> 38w 2d 233 lb 131/85 Negative <del>?</del> Negative 145 39 Cephalic 3 <del>?</del> 80 -1 KW- no vb/lof/ctx. good fm. labor precautions 06/16/23 <del>?</del> 39w 1d 232 lb 129/82 Negative <del>?</del> Negative 140 39 Cephalic 3 <del>?</del> 80 -1 Sm- no vb lof good fm no regular ctx BS WNL discussed expectant mangement for now, normal growth us and normal BS NST FHR Rate Baby A Baseline: 150 Variability:: Moderate Accelerations:: 15 x 15 Decelerations:: None NST Reactive:: Yes FHR Category:: Category I Assessment & Plan (1) False labor: COMMENT: irregular contraction with unchanged cervical exam. d/c home with precautions. PLAN: Patient presents for triage evaluation secondary to contractions FHT: Moderate variability reactive no decelerations category I tracing [place]: irregular Contractions, mild to occ mod to nursing palpation. Assessment and plan: Reactive NST, reassuring maternal and status patient discharged to home to follow-up in office and return with labor signs. See problem list details for additional plan information. Charges/Coding Procedures Urinary/Genital 52xxx-59xxx: 68630-04 non-stress test Interp Multi Select Codes Urinary/Genital Urinary/Genital CPT Codes: 88640-21 non-stress test Interp
== END 2023-06-20 23:45 | disposition home or self-care (01) ==
LOC: WPOUT 21:46 → WP 21:48
PROVIDERS: Visit Provider Registered Nurse
DX: O47.1 False labor at or after 37 completed weeks of gestation (principal); Z3A.39 39 weeks gestation of pregnancy
CPT/HCPCS: 59025; 59050; 99221; G0378

== ENCOUNTER 2023-06-21 05:26 | Inpatient (IN) | payer OTHER, SELFPAY ==
--- NOTE | 2023-06-20 | PLAC_PTH ---
PATIENT: LONG PRAKASH LOC: WP U#:[id number] AGE/SX: 27/F ROOM: WP003 RE06/21/[address]: Dr. Latoya Marquez DO : 1995 BED: 1 DIS: 06/24/2023 SPEC #: [id number] RECD: 06/21/23 19:46 STATUS: LETHA TIAGO #: [id number] CRISTINO: 06/20/23 00:[address]: Latoya Marquez DEPT: SURGICAL PATHOLOGY RECD BY: Antonio Ramos ENTERED: 06/23/23 08:13 SP TYPE: PLACENTA OTHR DR: No Primary Care Phys Tissues: A - Placenta, NOS B - CYST Procedures: Surgery Specimen Level III Surgery Specimen Level V HEADER OPERATION: section PRE-OP DIAGNOSIS: Corio TISSUE SUBMITTED: A- Placenta, B- Left tubal cyst MICROSCOPIC DIAGNOSIS A. Placenta: Placental disc - third trimester placenta (453 gm). - Acute vasculitis of subamniotic blood vessels. - Focal areas of intraparenchymal hemorrhage x2 (1.0 and 2.0cm in greatest dimension) Membranes - Moderate to marked acute chorioamnionitis. Umbilical cord - three blood vessels and moderate to marked acute funisitis. B. Left tubal cyst, excision: Paratubal cyst. SJ: 06/24/23 MICROSCOPIC DESCRIPTION Slides are reviewed. GROSS DESCRIPTION A. SPECIMEN: PLACENTA / CLINICAL INFORMATION: A. Weight: 2.97 kg B. Gestational Age: 39 weeks C. Sex: Female PLACENTAL WEIGHT (POST FIXATION): 453 gm PLACENTAL DIMENSIONS: 18.0 x 15.0 x 3.0 cm PLACENTAL SHAPE: Usual ovoid PLACENTAL WEIGHT FOR GESTATIONAL AGE: Within 10-99th percentile MEMBRANES - Present A. Insertion: Marginal B. Site of rupture from edge: 5.0 cm from edge of placental disc C. Color of membrane: Thomas-parsons D. Abnormalities: None UMBILICAL CORD - Present A. Color: Thomas-parsons B. Insertion: Marginal C. Length: 27.0 cm D. Diameter: 1.0 cm E. Number of vessels: Three F. Abnormalities: None PLACENTAL DISC - Present A. Color of surface: Thomas-parsons B. surface abnormalities: None C. Maternal cotyledons: Intact with minimal tears D. Attached retro placental clot: No clot E. Cut surface: Dark red and spongy F. Lesions: A thomas hemorrhagic lesion measuring 2.0cm in greatest dimension and a thomas white indurated lesion measuring 1.0cm in greatest dimension. G. Separate clot: Absent SECTIONS SUBMITTED: 1. Membrane roll 2. Cord, maternal end 3. Cord, end 4. Placental disc, and maternal surfaces, thomas-white indurated lesion 5. Placental disc, and maternal surfaces, hemorrhagic lesion 6. Placental disc, and maternal surfaces B. Received is one container labeled with the patient's name and not further designated. The specimen consists of a cyst measuring 2.5 x 2.0 x 1.5cm. Outer surface is smooth. Specimen is inked black. The cyst is filled with clear fluid. Inner cyst wall is smooth. Retail Field Supervisor sections are submitted in one cassette. JANET/ 06/23/23 TC:2 CPT: 68381,31551
[2023-06-21] VITALS (51 sets, daily range): BP systolic 98–140; BP diastolic 55–95; PULSE 88–118; RESP 16–22; TEMP 37.1–39.7; O2SAT 94–100; BMI 37.5
[2023-06-21 05:57] LABS: Absolute Lymphocyte Count 1.37 X10^3/uL (0.83-4.51); Absolute Neutrophil Count 16.2 X10^3/uL (2.0-7.7); Basophil# 0.04 X10^3/uL; Basophil% 0.2 % (0-1); Eosinophil# 0.01 X10^3/uL; Eosinophils% 0.1 % (0-5); Hematocrit 31.6 % (37-47); Hemoglobin 10.1 g/dL (12.0-15.0); Lymphocyte # 1.37 X10^3/ul (0.83-4.51); Lymphocyte % 7.2 % (19-41); Mean Corpuscular Hgb 27.6 pg (27.0-32.0); Mean Corpuscular Volume 86.3 fL (81-99); Mean Platelet Vol. 10.7 fl (6.2-12.0); Monocyte# 1.25 X10^3/uL; Monocyte% 6.6 % (0-10); NRBC Flagged by Analyzer 0 % (0-5); Neutrophil # 16.17 X10^3/uL (2.7-7.7); Neutrophil % 84.8 % (47-70); Platelet Count 329 K/mm3 (150-450); RBC Distribution Width CV 14.1 % (11.6-14.6); RBC Distribution Width SD 43.6 fl (35.1-43.9); Red Blood Count 3.66 M/mm3 (4.2-5.4)
[2023-06-21] MEDS: Lactated Ringers 1,000 ML 50 ML IV (06:13)
[2023-06-21] MEDS: LACTATED RINGERS 500 ML 999 ML IV ×2 (06:13→14:10)
[2023-06-21] MEDS: fentaNYL-bupivacaine (epidural) 100 ML BAG EPIDURAL ×2 (07:35→13:33)
[2023-06-21 08:08] LABS: Syphilis Antibodies Non-reactive
[2023-06-21] MEDS: Lactated Ringers 1,000 ML 200 ML IV ×2 (11:14→14:11)
[2023-06-21] MEDS: CHLORHEXIDINE GLUC 2% CLOTH 1 EACH TOWELETTE TOPICAL (11:24)
[2023-06-21] MEDS: Acetaminophen 500 MG Tablet PO (14:11)
--- NOTE | 2023-06-21 14:35 | CON.PCM_ITS ---
Consult Date of Consult: 06/21/23 Assessment & Plan Assessment/Plan (1) Maternal fever affecting labor: PLAN: Plan pt fully dilated, second stage developed tachycardia to 180, maternal temp to 100.5. IV fluids, and Tylenol provided. current tracing: FHT: Moderate variability reactive no decelerations category II tracing, tachycardia trending downward to 165 baseline. [place]: q3.5 minutes Contractions reviewed tracing abnormalities since last note: tachycardia A/P: triple III, suspected chorioamnionitis. -ampicillin 2g and gentamicin 5mg/kg -anticipate , discussed vacuum delivery if needed Dr. Pastrana updated on maternal fever, agrees with management, available as needed for vacuum if persistent tachycardia. currently with reassuring maternal and status, pushing well and fetus with moderate variability with pushing.
[2023-06-21] MEDS: Ampicillin 2 GM in 0.9% Normal Saline (100mL MB+) 100 ML IV ×2 (14:40→20:00)
[2023-06-21] MEDS: Gentamicin IV 300 MG in Dextrose 5%-Water (50mL Bag) 50 ML 100 MG IVPB (15:19)
[2023-06-21] MEDS: Oxytocin 15 Units/NS 250ml 15 UNITS/250 ML IV.SOLN 2 UNITS IV (15:41)
[2023-06-21] MEDS: Sodium Citrate/Citric Acid 30 ML UDC PO (16:18)
[2023-06-21] MEDS: Clindamycin 900 MG/50 ML BAG 75 MG IV (16:30)
[2023-06-21 17:35] LABS: Absolute Lymphocyte Count 1.84 X10^3/uL (0.83-4.51); Basophil# 0.04 X10^3/uL; Basophil% 0.2 % (0-1); Hematocrit 30.6 % (37-47); Hemoglobin 9.6 g/dL (12.0-15.0); Lymphocyte # 1.84 X10^3/ul (0.83-4.51); Lymphocyte % 8.9 % (19-41); Mean Corp Hgb Conc 31.4 g/dL (32-36); Mean Corpuscular Volume 89.2 fL (81-99); Mean Platelet Vol. 10.4 fl (6.2-12.0); Monocyte# 1.59 X10^3/uL; Monocyte% 7.7 % (0-10); NRBC Flagged by Analyzer 0 % (0-5); POSITIVE DIFFERENTIAL YES; Platelet Count 335 K/mm3 (150-450); RBC Distribution Width CV 14.2 % (11.6-14.6); RBC Distribution Width SD 46.3 fl (35.1-43.9); Red Blood Count 3.43 M/mm3 (4.2-5.4); White Blood Count 20.7 K/mm3 (4.4-11.0)
[2023-06-21 17:36] LABS: Differential Indicated SCAN CRITERIA MET
--- NOTE | 2023-06-21 18:06 | EX.PCM.OBRPT ---
Assessment & Plan (1) Chorioamnionitis, delivered, current hospitalization: (2) Maternal fever affecting labor: COMMENT: triple I making good progress with second stage (3) False labor: COMMENT: irregular contraction with unchanged cervical exam. d/c home with precautions. (4) Abnormal glucose complicating childbirth: COMMENT: 1 hr 178: she opted for qid testing and nutrition counseling (5) Anemia in preg-unspec: QUALIFIERS: Trimester: second trimester Qualified Code(s): O99.012 - Anemia complicating , second trimester COMMENT: Add Fe. Recheck CBC w FE studies 4 wk (6) Abnormal ultrasound: COMMENT: resolved. Ventriculomegaly w/o macrocephaly. MFM/ tx: 03/05/23:persists/stable. CMV neg. Next appt 04/02 and if persists will get NIPT/amnio-declines. Weekly BPP and recheck ventricles with MFM at 32 wk. 36 wk growth at 43% EFW and AC 30%. (7) Obesity affecting , antepartum: QUALIFIERS: Obesity type affecting : unspecified obesity Qualified Code(s): O99.210 - Obesity complicating , unspecified trimester (8) Supervision of normal first : QUALIFIERS: Trimester: second trimester Qualified Code(s): Z34.02 - Encounter for supervision of normal first , second trimester COMMENT: [id number], FLOR 06/22/23,girl Paige Alberto (9) : QUALIFIERS: Weeks of gestation: 39 weeks Qualified Code(s): Z3A.39 - 39 weeks gestation of COMMENT: Neg GBS. declined genetic & carrier testing Maternal Data Information FLOR Calculator Estimated Delivery Date Method Current WG Current Estimate 06/22/23 LMP (Certain) 39w 6d Other Estimates 06/27/23 Ultrasound #1 39w 1d Final FLOR Source: LMP Gestational age: 39 weeks 6 days Details Operative Information Date of Procedure: 06/21/23 Pre-Operative Diagnosis: 27 y/op @ 39 weeks 6 days, chorioamnionitis, failure to descend, chorioamnionitis, failed vacuum extraction Post-Operative Diagnosis: 27 y/op @ 39 weeks 6 days, chorioamnionitis, failure to descend, chorioamnionitis, failed vacuum extraction Classification: MANUEL Procedure Type: 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 There was noted foul purulent amniotic fluid and the heart rate was tachycardic with minimal variability. The decision was made to try a vacuum extraction. The patient was counseled on the risks of bruising and bleeding and the risk for an immediate section if this did not aid in delivery of the baby soon. The head was noted to be in an OP position. The head was gently turned to an JUAN position. The kiwi vacuum was placed on the head below anterior to the posterior fontanelle. 3 pulls were performed and all three were pop offs. The decision was then made to proceed with a section. A small vaginal laceration from the vacuum was noted and reapproximated with a 3-0 vicryl. A pillow was applied and the patient was brought to the OR. Epidural anesthesia was found to be adequate Gibbs catheter was placed. The patient was placed in the dorsal supine position with leftward tilt. Patient was prepped and draped in the normal sterile fashion. Pfannenstiel skin incision was made with the scalpel and carried through to the underlying layer of fascia with the scalpel. Fascia was nicked in the midline and the incision extended laterally. The rectus bellies were dissected off superiorly and inferiorly with out complication both sharply and bluntly. The peritoneum was entered digitally. The incision was stretched and a low transverse uterine incision was made with the scalpel. The 's head was delivered with the help of a hand from below atraumatically followed by the anterior and posterior shoulders without complication the rest of the infant delivered. The cord was clamped and cut and the infant was handed off to awaiting nurse. The placenta was delivered immediately following and was noted to be intact and have a three-vessel cord. The uterus was exteriorized cleared of all clots and debris, and the incision was closed in a double layer closure using #1 vicryl and #1 Monocryl. bilateral incisional extension were noted as well as a right uterine artery laceration that were also repaired. The ovaries and fallopian tubes were noted to be within normal limits with exception of a cyst on the left fallopian tube. This was removed with the bovie and sent for pathology analysis. The uterus was returned to the maternal abdomen and gutters were cleared of all clots and debris. The peritoneum was closed with 3-0 Monocryl in a running fashion. Gloves were changed prior to fascial closure. Fascia was closed with 0 PDS in a running fashion. Subcutaneous tissue was copiously irrigated and the skin was closed with 3-0 Monocryl in a subcuticular fashion. Mepilex dressing was applied without complication. Patient was taken to recovery in stable condition. Presentation: Positive for Vertex Amniotic Fluid Description: Foul-odor Placental Delivery Description: Expressed Placenta Disposition: Sent to Pathology Cord Vessel Description: 3 Vessels Cord Entanglement: None A Gender: Female (1 minute): 8 (5 minute): 9 Delayed Cord Clamping: No Multi Select Codes Urinary/Genital Urinary/Genital CPT Codes: 49888 Delivery [facility]
--- NOTE | 2023-06-21 18:11 | EX.PCM.OBRPT ---
Maternal Data Information FLOR Calculator Estimated Delivery Date Method Current WG Current Estimate 06/22/23 LMP (Certain) 39w 6d Other Estimates 06/27/23 Ultrasound #1 39w 1d Details Operative Information Indications Narrative: suspected chorioamnionitis, failed vacuumed extraction. 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 Pastrana From the start of the procedure to the end. I performed retraction, suture cutting, suction, and fundal pressure assistance during the procedure. The wound was dressed with Mepilex and the patient was brought to recovery in stable condition. See 's operative note for full details of the procedures. Presentation: Positive for Vertex Procedures Urinary/Genital 52xxx-59xxx: 28384 Delivery global pkg (CN acute care assistant.)
[2023-06-21 18:15] LABS: Differential Comment SCANNED
--- NOTE | 2023-06-21 18:15 | PCM.HP.OB ---
HPI - General General Date of Admission: 06/21/23 Date of Service: 06/21/23 Chief Complaint: contractions HPI Narrative LONG TUTTLE, is a 27 F who presents with increasing contraction intensity. Maternal Data Information FLOR Calculator Estimated Delivery Date Method Current WG Current Estimate 06/22/23 LMP (Certain) 39w 6d Other Estimates 06/27/23 Ultrasound #1 39w 1d PFSH PFSH Medical History Congenital abnormality ureter Home Medications multivit-min no.71-iron fum 28 mg-folate no.1 1 mg-dha 300 mg capsule (PNV-[place]) 1 cap PO DAILY 11/26/22 [History Last Taken 06/20/23] Allergy/AdvReac Type Severity Reaction Status Date / Time No Known Allergies Allergy Verified 06/21/23 06:47 Family History Grandmother Breast cancer, Onset Age: 70 Paternal Thyroid disorder Paternal- hyperthyroid Aunt Cancer Maternal - thyroid Surgical History [place] teeth removed Social History adopted: No household members: spouse current occupational status: employed current occupation: [employer] current occupational exposures/hazards: No pets and animals: Yes (Not managing litterbox while ) pets and animals: cat(s) and dog(s) history of recent travel: No sexually active: Yes Smoking Status: Never smoker alcohol intake: former year quit: 2019 details: Only social /occasional intake before Quit 3 years ago. substance use type: does not use well-balanced diet: about half the time caffeine: Yes Type: coffee Number of servings: 1 eating out: rarely or never during the past year weight has: remained stable what type of physical activity do you participate in: none tez/samaritan: None seatbelt use: always do you feel safe at home: Yes additional social history: Alberto [employer]- [employer] History 1 Elective abortions Hx Para 0 Spontaneous abortions Hx # Term Pregnancies Ectopic pregnancies Hx # Pregnancies Multiple births # of living children Visit Details Expected Delivery Route/Plan Labor Preferences- CB/BF classes: enc labor support person: Alberto labor intervention preferences: [] pain management options preferred: limited intervention cut cord/dad catch: cord : yes PP control planned: discussed discussed possible routes of delivery and associated risks: [] special requests: [] Plans Covid status: [] Flu vaccine: no Tdap vaccine: [] Rhogam: na LARC form signed: yes movement and labor precautions reviewed. Problem list reviewed and updated with the most current plan of care details and appropriate orders placed. Relevant counseling for the gestational age provided. Continue routine care and follow up unless otherwise noted in visit notes/problem list details OB Flowsheet Initial Weight: Not Recorded Date <del>?</del> EGA Weight BP Urine Prot <del>?</del> Glucose FHR FuHt Pres Dilation <del>?</del> Effaced St Visit Note 11/26/22 <del>?</del> 10w 2d 228 lb 2 oz 155/88 <del>?</del> 150 <del>?</del> SM- CRL cons with lmp 12/27/22 <del>?</del> 14w 5d 226 lb 2 oz 135/86 Negative <del>?</del> Negative 159 <del>?</del> JV- no cramping or spotting. Anatomy ultrasound ordered. 01/30/23 <del>?</del> 19w 4d 224 lb 6 oz 134/84 Negative <del>?</del> Negative 147 <del>?</del> MH-No VB. Feeling some flutters. Denies concerns. MFM US today 02/27/23 <del>?</del> 23w 4d 225 lb 6 oz 134/82 Negative <del>?</del> Negative 145 <del>?</del> MH-No VB. Good FM. She is feeling much stress due to abnormal US of brain-sees MFM 03/05. 03/27/23 <del>?</del> 27w 4d 227 lb 118/74 Negative <del>?</del> Negative 156 27 <del>?</del> MH-No VB, LOF. Good FM. States sees tx again next week and if still abnormal US of brain will get amnio/NIPT. 28 wk labs pending. 04/16/23 <del>?</del> 30w 3d 229 lb 8 oz 126/80 Negative <del>?</del> Negative 145 31 <del>?</del> JV- fasting glucose 80-90, 2hr pp levels upper 90s'-110. not needing to modify diet. no lof, vaginal bleeding, or dec fm. 04/28/23 <del>?</del> 32w 1d 227 lb 4 oz 129/83 Negative <del>?</del> Negative 142 32 <del>?</del> JV- glucose levels same as last visit. has next growth scan tomorrow with MFM. no lof, vaginal bleeding, or dec fm. 05/13/23 <del>?</del> 34w 2d 230 lb 124/80 Negative <del>?</del> Negative 145 35 <del>?</del> KW- no vb/lof/ctx. good fm. BS remain stable. Tdap today. cont growth US q4 weeks. brain normal on last US. 05/28/23 <del>?</del> 36w 3d 232 lb 6 oz 128/81 Negative <del>?</del> Negative 147 37 <del>?</del> JV- gbs done today. and tomorrow is follow up us with MFM in [place]. 06/03/23 <del>?</del> 37w 2d 231 lb 6 oz 131/79 Negative <del>?</del> Negative 142 38 <del>?</del> JV- last growth ws 48th%. pt states mfm told her she graduated plan for usual 41 week IOL as needed 06/10/23 <del>?</del> 38w 2d 233 lb 131/85 Negative <del>?</del> Negative 145 39 Cephalic 3 <del>?</del> 80 -1 KW- no vb/lof/ctx. good fm. labor precautions 06/16/23 <del>?</del> 39w 1d 232 lb 129/82 Negative <del>?</del> Negative 140 39 Cephalic 3 <del>?</del> 80 -1 Sm- no vb lof good fm no regular ctx BS WNL discussed expectant mangement for now, normal growth us and normal BS NST FHR Rate Baby A Baseline: 140 Variability:: Moderate Accelerations:: 15 x 15 Decelerations:: None NST Reactive:: Yes FHR Category:: Category I Uterine Activity:: q5 minutes ROS Cardiovascular Cardiovascular: Denies abdominal pain, chest pain, diaphoresis or dyspnea Respiratory/Chest Respiratory/Chest: Denies change in mental status, chest congestion, chest tightness, cough, shortness of breath at rest, shortness of breath with exertion, breast mass, breast pain, breast skin changes, breast swelling, change in breast shape or nipple discharge Genitourinary Genitourinary: Reports change in urinary stream Musculoskeletal Musculoskeletal: Reports none Integumentary Integumentary: Reports none Neurologic Neurologic: Reports none Psychiatric Psychiatric: Reports none Endocrine Endocrinology: Reports none Hematologic/Lymphatic Hematologic/Lymphatic: Reports none Allergic/Immunologic Allergic/Immunologic: Reports none Vital Signs Vital Signs Vital Signs: 06/21/23 05:16 06/21/23 05:16 06/21/23 05:16 Temperature Temperature Source Pulse Rate 95 Respiratory Rate Blood Pressure 136/81 H BP Systolic 136 BP Diastolic 81 Pulse Ox 98 06/21/23 05:16 06/21/23 05:16 06/21/23 05:16 Temperature Temperature Source Oral Pulse Rate Respiratory Rate 16 Blood Pressure BP Systolic BP Diastolic Pulse Ox 98 06/21/23 05:16 06/21/23 06:15 06/21/23 06:15 Temperature 99.0 F Temperature Source Temporal Pulse Rate Respiratory Rate 16 Blood Pressure BP Systolic BP Diastolic Pulse Ox 06/21/23 06:15 06/21/23 07:14 06/21/23 07:14 Temperature 99.1 F Temperature Source Pulse Rate 103 H Respiratory Rate Blood Pressure 140/77 H BP Systolic 140 BP Diastolic 77 Pulse Ox 06/21/23 07:15 06/21/23 07:15 06/21/23 07:19 Temperature Temperature Source Pulse Rate 107 H Respiratory Rate Blood Pressure 130/73 H BP Systolic 130 BP Diastolic 73 Pulse Ox 99 06/21/23 07:19 06/21/23 07:20 06/21/23 07:20 Temperature Temperature Source Pulse Rate 108 H 105 H Respiratory Rate Blood Pressure BP Systolic BP Diastolic Pulse Ox 98 06/21/23 07:24 06/21/23 07:24 06/21/23 07:25 Temperature Temperature Source Pulse Rate 97 100 Respiratory Rate Blood Pressure 116/66 BP Systolic 116 BP Diastolic 66 Pulse Ox 06/21/23 07:25 06/21/23 07:26 06/21/23 07:26 Temperature Temperature Source Pulse Rate 100 Respiratory Rate Blood Pressure BP Systolic BP Diastolic Pulse Ox 98 94 06/21/23 07:29 06/21/23 07:29 06/21/23 07:30 Temperature Temperature Source Pulse Rate 105 H 105 H Respiratory Rate Blood Pressure 121/75 H BP Systolic 121 BP Diastolic 75 Pulse Ox 06/21/23 07:30 06/21/23 07:34 06/21/23 07:35 Temperature Temperature Source Pulse Rate 105 H Respiratory Rate Blood Pressure 124/75 H BP Systolic 124 BP Diastolic 75 Pulse Ox 98 06/21/23 07:34 06/21/23 07:35 06/21/23 07:39 Temperature Temperature Source Pulse Rate 104 H Respiratory Rate Blood Pressure 120/71 BP Systolic 120 BP Diastolic 71 Pulse Ox 98 06/21/23 07:39 06/21/23 07:55 06/21/23 07:55 Temperature Temperature Source Pulse Rate 105 H 100 Respiratory Rate Blood Pressure 130/70 H BP Systolic 130 BP Diastolic 70 Pulse Ox 06/21/23 08:11 06/21/23 08:11 06/21/23 08:25 Temperature Temperature Source Pulse Rate 90 Respiratory Rate Blood Pressure 111/57 L 125/69 H BP Systolic 111 125 BP Diastolic 57 69 Pulse Ox 06/21/23 08:25 06/21/23 08:40 06/21/23 08:40 Temperature Temperature Source Pulse Rate 107 H 97 Respiratory Rate Blood Pressure 129/63 H BP Systolic 129 BP Diastolic 63 Pulse Ox 06/21/23 07:15 06/21/23 07:00 06/21/23 07:30 Temperature Temperature Source Pulse Rate Respiratory Rate 16 16 16 Blood Pressure BP Systolic BP Diastolic Pulse Ox 06/21/23 07:25 06/21/23 07:20 06/21/23 07:34 Temperature Temperature Source Pulse Rate Respiratory Rate 16 16 16 Blood Pressure BP Systolic BP Diastolic Pulse Ox 06/21/23 08:55 06/21/23 08:55 06/21/23 09:25 Temperature Temperature Source Pulse Rate 111 H Respiratory Rate Blood Pressure 123/63 H 98/64 BP Systolic 123 98 BP Diastolic 63 64 Pulse Ox 06/21/23 09:25 06/21/23 09:55 06/21/23 09:55 Temperature Temperature Source Pulse Rate 99 90 Respiratory Rate Blood Pressure 118/56 L BP Systolic 118 BP Diastolic 56 Pulse Ox 06/21/23 10:25 06/21/23 10:25 06/21/23 10:25 Temperature Temperature Source Pulse Rate 88 Respiratory Rate 16 Blood Pressure 113/59 L BP Systolic 113 BP Diastolic 59 Pulse Ox 06/21/23 10:56 05/04/24 10:56 06/21/23 11:19 Temperature Temperature Source Temporal Pulse Rate 94 Respiratory Rate Blood Pressure 117/55 L BP Systolic 117 BP Diastolic 55 Pulse Ox 06/21/23 11:19 06/21/23 11:19 06/21/23 11:25 Temperature 99.7 F H Temperature Source Pulse Rate Respiratory Rate 16 Blood Pressure 122/60 H BP Systolic 122 BP Diastolic 60 Pulse Ox 06/21/23 11:25 06/21/23 12:55 06/21/23 12:55 Temperature Temperature Source Pulse Rate 100 111 H Respiratory Rate Blood Pressure 138/66 H BP Systolic 138 BP Diastolic 66 Pulse Ox 06/21/23 13:27 06/21/23 13:27 06/21/23 13:50 Temperature 99.2 F H Temperature Source Temporal Pulse Rate 112 H Respiratory Rate Blood Pressure BP Systolic BP Diastolic Pulse Ox 06/21/23 13:50 06/21/23 14:04 06/21/23 14:04 Temperature 100.5 F H Temperature Source Oral Pulse Rate Respiratory Rate Blood Pressure BP Systolic BP Diastolic Pulse Ox 100 06/21/23 14:06 06/21/23 14:06 06/21/23 14:55 Temperature Temperature Source Pulse Rate 118 H Respiratory Rate Blood Pressure 126/95 H 135/64 H BP Systolic 126 135 BP Diastolic 95 64 Pulse Ox 06/21/23 14:55 06/21/23 15:11 06/21/23 15:09 Temperature Temperature Source Oral Temporal Pulse Rate 118 H Respiratory Rate Blood Pressure BP Systolic BP Diastolic Pulse Ox 06/21/23 15:11 06/21/23 15:09 06/21/23 15:25 Temperature 100.1 F H 103.4 F H Temperature Source Pulse Rate Respiratory Rate Blood Pressure 134/63 H BP Systolic 134 BP Diastolic 63 Pulse Ox 06/21/23 15:25 06/21/23 15:38 06/21/23 15:38 Temperature Temperature Source Pulse Rate 99 101 H Respiratory Rate Blood Pressure 130/61 H BP Systolic 130 BP Diastolic 61 Pulse Ox Weight Weight: 233 lb Body Mass Index (BMI) 37.5 Physical Exam Const alert, oriented x3 and no apparent distress General Appearance: cooperative, comfortable and well kempt Orientation / Consciousness: awake and oriented to person Exam Limitations: no limitations HEENT normocephalic Neck full ROM Chest inspection of chest normal Resp normal respiratory effort, normal air movement and no retractions Effort and Inspection: able to speak in complete sentences and symmetric chest movement Cardio regular rate Peripheral Pulses: pulses 2+ throughout GI normal to inspection, nondistended, normoactive bowel sounds Inspection: gravid no CVA tenderness and appearance of the vagina normal External Female Exam: normal appearance of the urethra; Negative for external lesion OB / External & Speculum: external exam normal Manual OB Exam: estimated gestational size appropriate and presentation cephalic Uterus Palpation: Negative for uterus tender Extremity normal to inspection Skin no rashes or lesions noted Neuro deep tendon reflexes 2+ bilaterally and gait normal Motor Exam: strength 5/5 throughout and clonus absent Psych Activity / Motor Behavior: appropriate eye contact Speech: normal speech Labs Labs Labs: Blood Type A POSITIVE Antibody Screen NEGATIVE Hct 30.6 % (37-47) L Hgb 9.6 g/dL (12.0-15.0) L Syphilis Total Ab Non-reactive Rubella IgG Antibody Reactive (Nonreactive) Hep Bs Antigen Non-Reactive (Nonreactive) Hepatitis C Antibody Non-Reactive (Nonreactive) Chlamydia DNA (TONG) Negative (Negative) N.gonorrhoeae DNA (TONG) Negative (Negative) HIV 1&2 Antibody Non-Reactive (Nonreactive) Glucose 1 Hr 50 gm 178 mg/dL (70-140) H Assessment & Plan (1) Supervision of normal first : QUALIFIERS: Trimester: second trimester Qualified Code(s): Z34.02 - Encounter for supervision of normal first , second trimester COMMENT: [id number], FLOR 06/22/23,girl Paige Alberto (2) : QUALIFIERS: Weeks of gestation: 39 weeks Qualified Code(s): Z3A.39 - 39 weeks gestation of COMMENT: Neg GBS. declined genetic & carrier testing (3) Spontaneous onset of labor: COMMENT: change in cervical exam,epidural for pain management. PLAN: Plan Patient presents IAL, plan expectant management for , pitocin/AROM PRN if needed. Pain management: plans epidural. GBS neg. Management of any complications: none I have reviewed the [facility] and made any clinically relevant updates. Dr. Pastrana updated on admission, exam and poc at 0531. delayed H&P
--- NOTE | 2023-06-21 18:22 | DCINST_ITS ---
Discharge Instructions Diet Discharge Diet: No restrictions Activity Discharge Activity: May Not Drive (for 2 weeks or while taking narcotic pain medications.), May Shower and May Take a Tub Bath (in 7 days.) May resume sexual activity in: 4-6 weeks Weight Bearing Status: Full weight bearing Lifting Restrictions: 20 pounds Dressing / Incision Call your doctor if your incision/area has: Continuous Slow Oozing, Sudden Increased Bleeding, Increased Pain/ Swelling, Increased Redness and Foul Smelling Discharge Call your doctor if you observe: Fever of 101 or Higher and Using more than 1 pad per hour Suture Line Care: Avoid Pulling/Pushing and Avoid Pinching/Bending Cleanse incision/area with: Soap & Water and Keep Dressing Clean & Dry Follow Up Care Please Follow Up With: Latoya Marquez DO When: Call [phone] to make an appointment for an incision check in 1-2 weeks. Test Results: Test results from this visit will be discussed in further detail at your follow- up appointment, if applicable. Discharge Plan Admission Admit Date/Time: 06/21/23 05:26 Attending Provider: Latoya Marquez Primary Care Provider: Care Physician,Najma Primary Discharge Orders/Prescriptions Prescriptions: No Action PNV-[place] 28-1-300 mg capsule 1 cap PO DAILY Referrals / Follow Up: Care Physician,No Primary [Primary Care Provider] -
[2023-06-21] MEDS: Oxytocin 15 Units/NS 250ml 15 UNITS/250 ML IV.SOLN 83 UNITS IV (18:54)
[2023-06-21] MEDS: Ketorolac 30 MG/ML Syringe IV (18:59)
[2023-06-21] MEDS: Methylergonovine 0.2 MG/ML Ampul IM (19:10)
[2023-06-21] MEDS: Lactated Ringers 1,000 ML 100 ML IV (19:57)
[2023-06-21] MEDS: Acetaminophen 500 MG Tablet 1000 MG PO (20:33)
[2023-06-21 22:11] LABS: Absolute Lymphocyte Count 0.82 X10^3/uL (0.83-4.51); Absolute Neutrophil Count 16.1 X10^3/uL (2.0-7.7); Basophil# 0.03 X10^3/uL; Basophil% 0.2 % (0-1); Eosinophil# 0.03 X10^3/uL; Eosinophils% 0.2 % (0-5); Hematocrit 27.5 % (37-47); Lymphocyte # 0.82 X10^3/ul (0.83-4.51); Lymphocyte % 4.5 % (19-41); Mean Corp Hgb Conc 32.7 g/dL (32-36); Mean Corpuscular Hgb 28.4 pg (27.0-32.0); Mean Corpuscular Volume 86.8 fL (81-99); Mean Platelet Vol. 10.4 fl (6.2-12.0); Monocyte# 1.05 X10^3/uL; Monocyte% 5.8 % (0-10); NRBC Flagged by Analyzer 0 % (0-5); Neutrophil # 16.14 X10^3/uL (2.7-7.7); Neutrophil % 88.8 % (47-70); Platelet Count 282 K/mm3 (150-450); RBC Distribution Width CV 14.1 % (11.6-14.6); RBC Distribution Width SD 44.7 fl (35.1-43.9); Red Blood Count 3.17 M/mm3 (4.2-5.4); White Blood Count 18.2 K/mm3 (4.4-11.0)
--- NOTE | 2023-06-21 22:22 | NURSING ---
Report received from Cecilia KEN, taking over pt and care at this time.
[2023-06-22] VITALS (14 sets, daily range): BP systolic 92–126; BP diastolic 58–78; PULSE 96–108; RESP 16–18; TEMP 36.6–37.2; O2SAT 98–99
[2023-06-22] MEDS: 0.9% Saline Lock 10 ML Syringe IV ×4 (01:18→14:34)
[2023-06-22] MEDS: Ketorolac 30 MG/ML Syringe IV ×3 (01:18→14:34)
[2023-06-22] MEDS: Ampicillin 2 GM in 0.9% Normal Saline (100mL MB+) 100 ML IV ×4 (01:18→20:20)
[2023-06-22] MEDS: Acetaminophen 500 MG Tablet 1000 MG PO ×4 (03:15→23:39)
[2023-06-22] MEDS: Enoxaparin 40 MG/0.4 ML Syringe SC (05:32)
[2023-06-22 06:00] LABS: Hematocrit 24.1 % (37-47); Hemoglobin 7.8 g/dL (12.0-15.0); Mean Corp Hgb Conc 32.4 g/dL (32-36); Mean Corpuscular Hgb 28.6 pg (27.0-32.0); Mean Corpuscular Volume 88.3 fL (81-99); Mean Platelet Vol. 10.6 fl (6.2-12.0); Platelet Count 272 K/mm3 (150-450); RBC Distribution Width CV 14.4 % (11.6-14.6); RBC Distribution Width SD 46.2 fl (35.1-43.9); Red Blood Count 2.73 M/mm3 (4.2-5.4); White Blood Count 15.5 K/mm3 (4.4-11.0)
[2023-06-22] MEDS: Senna/Docusate Sodium 1 Tablet PO (09:02)
--- NOTE | 2023-06-22 09:58 | PCM.PN.OB ---
Subjective Subjective Patient doing well without complaints. Tolerating PO. Ambulating and voiding without difficulty. Feeding well. Denies chest pain, shortness of breath, calf pain/swelling, fevers, chills, mild lightheadedness. Objective Data Objective Data Vital Signs: Vital Signs Temp Pulse Resp BP Pulse Ox O2 Del Method 98.6 F 97 18 92/58 L 98 Room Air 06/22/23 09:00 06/22/23 09:00 06/22/23 09:00 06/22/23 09:00 06/22/23 09:00 06/22/23 09:00 Oxygen Delivery Method Room Air Weight: 233 lb Body Mass Index (BMI) 37.5 Intake & Output: Intake and Output for Last 24 Hours 06/20/23 06/21/23 06/22/23 23:59 23:59 23:59 Intake Total 3399.73 / 3399.73 1200 / 1200 Output Total 1550 / 1550 450 / 450 Balance 1849.73 / 1849.73 750 / 750 Lab / Micro Data 06/22/23 05:39 Labs: Laboratory Results - last 24 hr 06/21/23 05:45: Crossmatch See Detail 06/21/23 17:25: WBC 20.7 H, RBC 3.43 L, Hgb 9.6 L, Hct 30.6 L, MCV 89.2, MCH 28.0, MCHC 31.4 L, RDW Std Deviation 46.3 H, RDW Coeff of Edwin 14.2, Plt Count 335, MPV 10.4, Immature Gran % (Auto) 1.200 H, Neut % (Auto) 82.0 H, Lymph % (Auto) 8.9 L, [place] % (Auto) 7.7, Eos % (Auto) 0.0, Baso % (Auto) 0.2, Absolute Neuts (auto) 17.0 H, Absolute Lymphs (auto) 1.84, Nucleated RBC % 0, Differential Comment SCANNED, Diff Path Review June06/21/23 21:58: WBC 18.2 H, RBC 3.17 L, Hgb 9.0 L, Hct 27.5 L, MCV 86.8, MCH 28.4, MCHC 32.7, RDW Std Deviation 44.7 H, RDW Coeff of Edwin 14.1, Plt Count 282, MPV 10.4, Immature Gran % (Auto) 0.500, Neut % (Auto) 88.8 H, Lymph % (Auto) 4.5 L, [place] % (Auto) 5.8, Eos % (Auto) 0.2, Baso % (Auto) 0.2, Absolute Neuts (auto) 16.1 H, Absolute Lymphs (auto) 0.82 L, Nucleated RBC % 0 06/22/23 05:39: WBC 15.5 H, RBC 2.73 L, Hgb 7.8 L, Hct 24.1 L, MCV 88.3, MCH 28.6, MCHC 32.4, RDW Std Deviation 46.2 H, RDW Coeff of Edwin 14.4, Plt Count 272, MPV 10.6 Physical Exam Const alert and oriented x3 Chest inspection of chest normal Resp normal respiratory effort, normal air movement and no retractions Cardio regular rate and regular rhythm GI normal to inspection, nondistended, normoactive bowel sounds Extremity normal to inspection and full ROM Skin Skin Narrative: dressing c/d/i Psych mental status grossly normal Assessment & Plan (1) hemorrhage: COMMENT: CBC check at 2200 and AM type and screen complete 2u PRBC on hold PLAN: transfuse 2u PRBC CBC 6 hours following transfusion (2) Chorioamnionitis, delivered, current hospitalization: COMMENT: continue amp/gent/clinda x48 hour . (3) delivery delivered: COMMENT: JV CS 40weeks failed vacuum/chorio girl: Paige PLAN: Plan s/p LTCS PPD # 1 1. routine post care 2. breast feeding- support given 3. rh positive 4. rubella immune 5. plan blood transfusion for anemia.
[2023-06-22] MEDS: Gentamicin IV 300 MG in Dextrose 5%-Water (50mL Bag) 50 ML 100 MG IVPB (17:32)
[2023-06-22] MEDS: Naproxen 500 MG Tablet PO (20:20)
[2023-06-22 23:59] LABS: Absolute Neutrophil Count 13.5 X10^3/uL (2.0-7.7); Basophil# 0.06 X10^3/uL; Basophil% 0.3 % (0-1); Eosinophil# 0.28 X10^3/uL; Eosinophils% 1.6 % (0-5); Hematocrit 30.3 % (37-47); Hemoglobin 9.5 g/dL (12.0-15.0); Lymphocyte % 13.2 % (19-41); Mean Corp Hgb Conc 31.4 g/dL (32-36); Mean Corpuscular Hgb 27.9 pg (27.0-32.0); Mean Corpuscular Volume 88.9 fL (81-99); Mean Platelet Vol. 10.2 fl (6.2-12.0); Monocyte# 1.15 X10^3/uL; Monocyte% 6.6 % (0-10); NRBC Flagged by Analyzer 0 % (0-5); Neutrophil # 13.49 X10^3/uL (2.7-7.7); Neutrophil % 77.4 % (47-70); Platelet Count 330 K/mm3 (150-450); RBC Distribution Width SD 48.6 fl (35.1-43.9); Red Blood Count 3.41 M/mm3 (4.2-5.4); White Blood Count 17.4 K/mm3 (4.4-11.0)
[2023-06-23 02:00] VITALS: BP 107/64; PULSE 89; RESP 16; TEMP 36.3; O2SAT 96
[2023-06-23] MEDS: Ampicillin 2 GM in 0.9% Normal Saline (100mL MB+) 100 ML IV ×2 (02:09→08:57)
[2023-06-23] MEDS: Enoxaparin 40 MG/0.4 ML Syringe SC (05:03)
[2023-06-23] MEDS: Naproxen 500 MG Tablet PO ×3 (05:04→21:27)
[2023-06-23] MEDS: Acetaminophen 500 MG Tablet 1000 MG PO ×3 (05:28→17:06)
--- NOTE | 2023-06-23 08:08 | PCM.PN.OB ---
Subjective Subjective Patient doing well without complaints. Tolerating PO. Ambulating and voiding without difficulty. Feeding well. Denies chest pain, shortness of breath, calf pain/swelling, fevers, chills, lightheadedness. Objective Data Objective Data Vital Signs: Vital Signs Temp Pulse Resp BP Pulse Ox O2 Del Method 97.4 F L 89 16 107/64 96 Room Air 06/23/23 02:00 06/23/23 02:00 06/23/23 02:00 06/23/23 02:00 06/23/23 02:00 06/23/23 02:00 Oxygen Delivery Method Room Air Weight: 233 lb Body Mass Index (BMI) 37.5 Intake & Output: Intake and Output for Last 24 Hours 06/21/23 06/22/23 06/23/23 23:59 23:59 23:59 Intake Total 3399.73 / 3399.73 1458.5 / 1458.5 100 / 100 Output Total 1550 / 1550 750 / 750 400 / 400 Balance 1849.73 / 1849.73 708.5 / 708.5 -300 / -300 Lab / Micro Data Attestation: I reviewed the patient's lab results. 06/22/23 23:45 Labs: Laboratory Results - last 24 hr 06/21/23 05:45: Crossmatch See Detail 06/22/23 23:45: WBC 17.4 H, RBC 3.41 L, Hgb 9.5 L, Hct 30.3 L, MCV 88.9, MCH 27.9, MCHC 31.4 L, RDW Std Deviation 48.6 H, RDW Coeff of Edwin 15.0 H, Plt Count 330, MPV 10.2, Immature Gran % (Auto) 0.900, Neut % (Auto) 77.4 H, Lymph % (Auto) 13.2 L, [place] % (Auto) 6.6, Eos % (Auto) 1.6, Baso % (Auto) 0.3, Absolute Neuts (auto) 13.5 H, Absolute Lymphs (auto) 2.30, Nucleated RBC % 0 ROS Constitutional Constitutional: Reports systems reviewed and no addt'l complaints, except as documented; Denies anorexia or headache(s) Cardiovascular Cardiovascular: Reports systems reviewed and no addt'l complaints, except as documented; Denies dizziness, dyspnea, nausea or tachypnea Respiratory/Chest Respiratory/Chest: Reports systems reviewed and no addt'l complaints, except as documented; Denies cough, dyspnea, shortness of breath at rest or tachypnea Gastrointestinal Gastrointestinal: Reports systems reviewed and no addt'l complaints, except as documented; Denies abdominal pain, constipation or nausea Genitourinary Genitourinary: Reports systems reviewed and no addt'l complaints, except as documented; Denies burning urination, difficulty urinating, dysuria, urinary frequency or urinary incontinence Musculoskeletal Musculoskeletal: Reports systems reviewed and no addt'l complaints, except as documented Integumentary Integumentary: Reports systems reviewed and no addt'l complaints, except as documented Neurologic Neurologic: Reports systems reviewed and no addt'l complaints, except as documented; Denies abnormal speech, dizziness or headache(s) Psychiatric Psychiatric: Reports systems reviewed and no addt'l complaints, except as documented Endocrine Endocrinology: Reports systems reviewed and no addt'l complaints, except as documented Hematologic/Lymphatic Hematologic/Lymphatic: Reports systems reviewed and no addt'l complaints, except as documented Physical Exam Const alert, oriented x3 and no apparent distress Neck full ROM Resp normal respiratory effort, normal air movement and no retractions Effort and Inspection: able to speak in complete sentences and symmetric chest movement GI soft to palpation Inspection: incision intact Bladder / Kidney Exam: bladder normal to palpation Uterus Palpation: uterus fundus firm Extremity normal to inspection and full ROM Psych mental status grossly normal, thought process normal and cooperative Assessment & Plan (1) delivery delivered: COMMENT: JV CS 40weeks failed vacuum/chorio girl: Paige PLAN: s/p LTCS PPD # 2 1. routine post care 2. breast feeding- support given 3. rh positive 4. rubella immune (2) hemorrhage: COMMENT: CBC check at 2200 and AM type and screen complete 2u PRBC on hold (3) Spontaneous onset of labor: COMMENT: change in cervical exam,epidural for pain management. (4) Chorioamnionitis, delivered, current hospitalization: COMMENT: continue amp/gent/clinda x48 hour . (5) Maternal fever affecting labor: COMMENT: triple I making good progress with second stage (6) Abnormal glucose complicating childbirth: COMMENT: 1 hr 178: she opted for qid testing and nutrition counseling (7) Anemia in preg-unspec: QUALIFIERS: Trimester: second trimester Qualified Code(s): O99.012 - Anemia complicating , second trimester COMMENT: Add Fe. Recheck CBC w FE studies 4 wk (8) Obesity affecting , antepartum: QUALIFIERS: Obesity type affecting : unspecified obesity Qualified Code(s): O99.210 - Obesity complicating , unspecified trimester (9) Supervision of normal first : QUALIFIERS: Trimester: second trimester Qualified Code(s): Z34.02 - Encounter for supervision of normal first , second trimester COMMENT: [id number], FLOR 06/22/23,girl Paige Alberto (10) : QUALIFIERS: Weeks of gestation: 39 weeks Qualified Code(s): Z3A.39 - 39 weeks gestation of COMMENT: Neg GBS. declined genetic & carrier testing Charges/Coding Multi Select Codes Urinary/Genital Urinary/Genital CPT Codes: No Charge
[2023-06-23 08:53] VITALS: BP 112/69; PULSE 82; RESP 16; TEMP 36.2; O2SAT 99
[2023-06-23] MEDS: 0.9% Saline Lock 10 ML Syringe IV (08:58)
[2023-06-23 10:17] LABS: Pathologist Review Reviewed
[2023-06-23] MEDS: Senna/Docusate Sodium 1 Tablet PO (11:20)
[2023-06-23 14:11] VITALS: BP 120/83; PULSE 87; RESP 16; TEMP 36.1; O2SAT 97
[2023-06-23 19:34] VITALS: BP 116/75; PULSE 73; RESP 16; TEMP 36.3; O2SAT 98
[2023-06-24 01:35] VITALS: BP 104/72; PULSE 83; RESP 16; TEMP 36.3; O2SAT 98
[2023-06-24] MEDS: Acetaminophen 500 MG Tablet 1000 MG PO ×3 (01:37→13:25)
[2023-06-24] MEDS: Naproxen 500 MG Tablet PO ×2 (06:24→15:19)
--- NOTE | 2023-06-24 07:43 | PCM.PN.OB ---
Subjective Subjective Patient doing well without complaints. Tolerating PO. Ambulating and voiding without difficulty. Feeding well. Denies chest pain, shortness of breath, calf pain/swelling, fevers, chills, lightheadedness. Objective Data Objective Data Vital Signs: Vital Signs Temp Pulse Resp BP Pulse Ox O2 Del Method 97.3 F L 83 16 104/72 98 Room Air 06/24/23 01:35 06/24/23 01:35 06/24/23 01:35 06/24/23 01:35 06/24/23 01:35 06/24/23 01:35 Oxygen Delivery Method Room Air Weight: 233 lb Body Mass Index (BMI) 37.5 Intake & Output: Intake and Output for Last 24 Hours 06/22/23 06/23/23 06/24/23 23:59 23:59 23:59 Intake Total 1458.5 / 1458.5 200 / 200 Output Total 750 / 750 400 / 400 Balance 708.5 / 708.5 -200 / -200 Lab / Micro Data 06/22/23 23:45 Labs: Laboratory Results - last 24 hr 06/21/23 17:25: Diff Path Review Reviewed Physical Exam Const alert and oriented x3 HEENT normocephalic Eyes PERRL Neck full ROM Resp normal respiratory effort GI soft to palpation GI Narrative: FF below U. Dressing dry and intact Palpation: tender other (appropriately) Assessment & Plan (1) delivery delivered: COMMENT: JV CS 40weeks failed vacuum/chorio girl: Paige (2) Chorioamnionitis, delivered, current hospitalization: COMMENT: continue amp/gent/clinda x48 hour . (3) hemorrhage: QUALIFIERS: hemorrhage type: unspecified Qualified Code(s): O72.1 - Other immediate hemorrhage COMMENT: stable. 2u PRBC on hold (4) Anemia in preg-unspec: QUALIFIERS: Trimester: second trimester Qualified Code(s): O99.012 - Anemia complicating , second trimester COMMENT: Add Fe. Recheck CBC w FE studies 4 wk PLAN: Plan s/p LTCS PPD # 3 1. routine post care 2. breast feeding- support given 3. rh positive 4. rubella immune 5. home today
--- NOTE | 2023-06-24 07:45 | DS.PCM_ITS ---
Providers Date of Admission: 06/21/23 Primary Care Physician: Najma Primary Care Phys Reason For Visit: PRIMARY Diagnosis Discharge Diagnosis (1) delivery delivered: Status: Acute Code(s): O82 - Encounter for delivery without indication (2) Chorioamnionitis, delivered, current hospitalization: Status: Acute Code(s): O41.1290 - Chorioamnionitis, unspecified trimester, not applicable or unspecified (3) hemorrhage: Status: Acute Code(s): O72.1 - Other immediate hemorrhage Qualifiers: hemorrhage type: unspecified Qualified Code(s): O72.1 - Other immediate hemorrhage (4) Anemia in preg-unspec: Status: Acute Code(s): O99.019 - Anemia complicating , unspecified trimester Qualifiers: Trimester: second trimester Qualified Code(s): O99.012 - Anemia complicating , second trimester Plan s/p LTCS PPD # 3 1. routine post care 2. breast feeding- support given 3. rh positive 4. rubella immune 5. home today Medications at Discharge Home Medications multivit-min no.71-iron fum 28 mg-folate no.1 1 mg-dha 300 mg capsule (PNV- [place]) 1 cap PO DAILY 11/26/22 Hospital Course Operations section Summary of Care Provided Hospital Course: Patient underwent section with routine recovery, return of normal bowel and bladder function. Had chorioamnionitis and treated appropriately without postop fever. Had brief hemorrhage and responded to treatment without need for blood products. Ambulating, voiding and tolerating PO. Stable for discharge home POD #3. Weight / BMI Weight Weight: 233 lb Body Mass Index (BMI) 37.5 ABG / Lab / Microbiology Data 06/22/23 23:45 Laboratory: Laboratory Results - last 24 hr 06/21/23 17:25: Diff Path Review Reviewed D/C Instructions Discharge Diet: No restrictions May resume sexual activity in: 4-6 weeks Weight Bearing Status: Full weight bearing Call your doctor if your incision/area has: Continuous Slow Oozing, Sudden I ncreased Bleeding, Increased Pain/ Swelling, Increased Redness and Foul Smelling Discharge Call your doctor if you observe: Fever of 101 or Higher and Using more than 1 pad per hour Suture Line Care: Avoid Pulling/Pushing and Avoid Pinching/Bending Cleanse incision/area with: Soap & Water and Keep Dressing Clean & Dry Please Follow Up With: Latoya Marquez, When: Call [phone] to make an appointment for an incision check in 1-2 weeks. Meaningful Use Info Meaningful Use Meaningful Use Diagnoses (Choose all that apply): None applicable Ischemic Stroke Statin Dosing Therapy Reference: STATIN DOSE THERAPY REFERENCE: * Patients > 75 years receive moderate or high dose statin therapy. * Patients 75 years or YOUNGER should receive HIGH intensity statin dose unless contraindicated. You will be required to document reason for non-treatment if statin daily dose does not meet guidelines. HIGH DOSE STATIN THERAPY DAILY Atorvastatin > than or = to 40 mg Rosuvastatin > than or = to 20 mg Amlodipine + Atorvastatin > than or = to 2.5/40 mg Ezetimibe + Simvastatin 10/80 mg Simvastatin 80mg Discharge Plan Admission Admit Date/Time: 06/21/23 05:26 Attending Provider: Latoya Marquez Primary Care Provider: Care Physician,No Primary Discharge Orders/Prescriptions Prescriptions: No Action PNV-[place] 28-1-300 mg capsule 1 cap PO DAILY Referrals / Follow Up: Care Physician,No Primary [Primary Care Provider] -
[2023-06-24 08:30] VITALS: BP 117/83; PULSE 82; RESP 16; TEMP 36.7; O2SAT 98
[2023-06-24] MEDS: Enoxaparin 40 MG/0.4 ML Syringe SC (10:45)
[2023-06-24] MEDS: Senna/Docusate Sodium 1 Tablet PO (10:46)
[2023-06-24 14:00] VITALS: BP 130/80; PULSE 88; RESP 16; TEMP 36.8; O2SAT 99
[2023-06-25 12:07] LABS: Pathology Specimen OB SEE PATH
== END 2023-06-24 18:00 | disposition home or self-care (01) | DRG 786 ==
LOC: WPOUT 05:30 → WP 05:30
PROVIDERS: Registered Nurse; Admitting Provider Obstetrics & Gynecology; Visit Provider Obstetrics & Gynecology
DX: O99.214 Obesity complicating childbirth (principal); O41.1230 Chorioamnionitis, third trimester, not applicable or unspecified; O62.1 Secondary uterine inertia; O72.1 Other immediate postpartum hemorrhage; O71.4 Obstetric high vaginal laceration alone; O34.83 Maternal care for other abnormalities of pelvic organs, third trimester; O76 Abnormality in fetal heart rate and rhythm complicating labor and delivery; O66.5 Attempted application of vacuum extractor and forceps; O90.81 Anemia of the puerperium; Z37.0 Single live birth; Z3A.39 39 weeks gestation of pregnancy; Z87.891 Personal history of nicotine dependence; N83.8 Other noninflammatory disorders of ovary, fallopian tube and broad ligament; O99.892 Other specified diseases and conditions complicating childbirth
CPT/HCPCS: 59050; 85025; 85027; 86780; 86850; 86900; 86901; 86920; 86922; 88304; 88307; 99221; J7120; P9016; A4216; G0378; J2405

== ENCOUNTER → 2023-08-13 | Outpatient (CLI) | payer OTHER, SELFPAY ==
[2023-08-18 16:38] LABS: HPV Reflexed? NOT INDICATED
== END | disposition home or self-care (01) ==
LOC: LABSPEC 16:03
PROVIDERS: Referring Provider Obstetrics & Gynecology; Visit Provider Obstetrics & Gynecology
DX: Z12.4 Encounter for screening for malignant neoplasm of cervix (principal)
CPT/HCPCS: 88175; G0145

== ENCOUNTER → 2024-08-05 | Outpatient (CLI) | payer OTHER, SELFPAY ==
[2024-08-09 19:08] LABS: Chlamydia By Nucleic Acid AMP Negative (Negative); Gonococcus By Nucleic Acid AMP Negative (Negative)
== END | disposition home or self-care (01) ==
LOC: LABSPEC 13:50
PROVIDERS: Referring Provider Advanced Practice Midwife; Visit Provider Advanced Practice Midwife
DX: O09.90 Supervision of high risk pregnancy, unspecified, unspecified trimester (principal); Z3A.00 Weeks of gestation of pregnancy not specified
CPT/HCPCS: 87086; 87088; 87491; 87591

== ENCOUNTER → 2024-09-06 | Outpatient (CLI) | payer OTHER, SELFPAY ==
[2024-09-06 12:25] LABS: Hematocrit 37.0 % (37-47); Hemoglobin 12.1 g/dL (12.0-15.0); Immature Granulocytes Count 0.030 X10^3/uL (0.0-0.0); Mean Corp Hgb Conc 32.7 g/dL (32-36); Mean Corpuscular Volume 88.3 fL (81-99); Mean Platelet Vol. 10.2 fl (6.2-12.0); NRBC Flagged by Analyzer 0 % (0-5); Platelet Count 289 K/mm3 (150-450); RBC Distribution Width CV 12.9 % (11.6-14.6); RBC Distribution Width SD 41.4 fl (35.1-43.9); Red Blood Count 4.19 M/mm3 (4.2-5.4); White Blood Count 8.0 K/mm3 (4.4-11.0)
[2024-09-06 14:09] LABS: HIV Nonreactive (Nonreactive); Hepatitis B Surface Antigen Nonreactive (Nonreactive); Hepatitis C Antibody Nonreactive (Nonreactive); Syphilis Antibodies Nonreactive (Nonreactive)
== END | disposition home or self-care (01) ==
PROVIDERS: Advanced Practice Midwife; Visit Provider Obstetrics & Gynecology
DX: O09.90 Supervision of high risk pregnancy, unspecified, unspecified trimester (principal); O99.210 Obesity complicating pregnancy, unspecified trimester; Z3A.00 Weeks of gestation of pregnancy not specified
CPT/HCPCS: 36415; 83036; 85025; 86703; 86762; 86780; 86803; 86850; 86900; 86901; 87340

== ENCOUNTER 2024-11-02 08:32 | Outpatient (CLI) | payer OTHER, SELFPAY ==
[2024-11-02 09:27] LABS: Hematocrit 31.8 % (37-47); Hemoglobin 10.9 g/dL (12.0-15.0); Immature Granulocytes Count 0.040 X10^3/uL (0.0-0.0); Mean Corp Hgb Conc 34.3 g/dL (32-36); Mean Corpuscular Volume 88.3 fL (81-99); Mean Platelet Vol. 10.5 fl (6.2-12.0); NRBC Flagged by Analyzer 0 % (0-5); Platelet Count 265 K/mm3 (150-450); RBC Distribution Width CV 13.2 % (11.6-14.6); RBC Distribution Width SD 42.5 fl (35.1-43.9); Red Blood Count 3.60 M/mm3 (4.2-5.4); White Blood Count 8.0 K/mm3 (4.4-11.0)
[2024-11-02 09:51] LABS: Creatinine, Urine (random) 157.00 mg/dL (28.00-217.00); Protein, Urine (Random) 29.2 mg/dL (0.0-12.0); Protein:Creat Ratio 186 mg/g CRE (0-200)
[2024-11-02 09:58] LABS: AST(SGOT) 13 U/L (<=31); Alanine Aminotransfer ALT/SGPT 9 U/L (<=34); Albumin, Serum 3.8 g/dL (3.5-5.0); Alkaline Phosphatase 41 U/L (35-104); Anion Gap 12 (5-15); BUN 6 mg/dL (4-19); BUN/Creat Ratio 11.8 RATIO (10-20); Calcium,Total 9.1 mg/dL (7.6-11.0); Carbon Dioxide 18.6 mmol/L (21.0-32.0); Chloride 106 mmol/L (98-108); Globulin 2.7 g/dL (2.2-4.2); Glucose 85 mg/dL (70-99); Potassium 3.8 mmol/L (3.3-5.1)
== END 2024-11-02 23:59 | disposition home or self-care (01) ==
LOC: BWCLAB 08:33
PROVIDERS: Referring Provider Nurse Practitioner Women's Health; Visit Provider Nurse Practitioner Women's Health
DX: O26.899 Other specified pregnancy related conditions, unspecified trimester (principal); R51.9 Headache, unspecified; O12.10 Gestational proteinuria, unspecified trimester; Z3A.00 Weeks of gestation of pregnancy not specified
CPT/HCPCS: 36415; 80053; 82570; 84156; 85025

== ENCOUNTER → 2024-12-30 | Outpatient (CLI) | payer OTHER, SELFPAY ==
[2024-12-30 12:27] LABS: Hematocrit 33.3 % (37-47); Hemoglobin 10.5 g/dL (12.0-15.0); Immature Granulocytes Count 0.050 X10^3/uL (0.0-0.0); Mean Corp Hgb Conc 31.5 g/dL (32-36); Mean Corpuscular Volume 90.7 fL (81-99); Mean Platelet Vol. 10.5 fl (6.2-12.0); NRBC Flagged by Analyzer 0 % (0-5); Platelet Count 315 K/mm3 (150-450); RBC Distribution Width CV 13.4 % (11.6-14.6); RBC Distribution Width SD 44.6 fl (35.1-43.9); Red Blood Count 3.67 M/mm3 (4.2-5.4); White Blood Count 6.1 K/mm3 (4.4-11.0)
[2024-12-30 13:04] LABS: Glucose Challenge Gest 1H 50g 120 mg/dL (70-140); HIV Nonreactive (Nonreactive); Syphilis Antibodies Nonreactive (Nonreactive)
== END | disposition home or self-care (01) ==
PROVIDERS: Advanced Practice Midwife; Visit Provider Obstetrics & Gynecology
DX: O09.92 Supervision of high risk pregnancy, unspecified, second trimester (principal); Z3A.24 24 weeks gestation of pregnancy; Z13.1 Encounter for screening for diabetes mellitus
CPT/HCPCS: 36415; 82950; 85025; 86703; 86780

== ENCOUNTER → 2025-01-25 | Outpatient (CLI) | payer OTHER, SELFPAY ==
[2025-01-25 16:31] LABS: Hematocrit 31.3 % (37-47); Hemoglobin 10.3 g/dL (12.0-15.0); Immature Granulocytes Count 0.050 X10^3/uL (0.0-0.0); Mean Corp Hgb Conc 32.9 g/dL (32-36); Mean Corpuscular Volume 87.2 fL (81-99); Mean Platelet Vol. 10.8 fl (6.2-12.0); NRBC Flagged by Analyzer 0 % (0-5); Platelet Count 318 K/mm3 (150-450); RBC Distribution Width CV 13.9 % (11.6-14.6); RBC Distribution Width SD 43.4 fl (35.1-43.9); Red Blood Count 3.59 M/mm3 (4.2-5.4); White Blood Count 10.4 K/mm3 (4.4-11.0)
== END | disposition home or self-care (01) ==
LOC: BWCLAB 13:33
PROVIDERS: Advanced Practice Midwife; Visit Provider Student in an Organized Health Care Education/Training Program
DX: O99.019 Anemia complicating pregnancy, unspecified trimester (principal); Z3A.00 Weeks of gestation of pregnancy not specified
CPT/HCPCS: 36415; 85025

== ENCOUNTER 2025-02-03 10:07 | Outpatient (CLI) | payer OTHER, SELFPAY ==
[2025-02-03 10:07] VITALS: BP 113/66; PULSE 101; RESP 16; TEMP 36.7; O2SAT 98; BMI 34.9
--- NOTE | 2025-02-03 10:26 | EKG12_ITS ---
Test Reason : NEAR SYNCOPE Blood Pressure : */* mmHG Vent. Rate : 98 BPM Atrial Rate : 98 BPM P-R Int : 150 ms QRS Dur : 94 ms QT Int : 348 ms P-R-T Axes : 18 56 21 degrees QTcB Int : 444 ms Normal sinus rhythm Nonspecific ST abnormality Abnormal ECG Confirmed by Saul Mckoy ([id number]), news video editor MILENA ACOSTA ([id number]) on 02/04/2025 10:35:53 AM Referred By: No Primary Care Physician Confirmed By: Saul Mckoy
--- NOTE | 2025-02-03 10:29 | EX.ED.DYSGE1 ---
HPI History of Present Illness Chief Complaint: Syncope Narrative Narrative: Chief complaint and HPI: 29-year-old female who is G2, P1 and [address] weeks [address] [place] Herman for OB presents for evaluation of near syncope. Patient states yesterday she had multiple episodes of nausea and vomiting. Nonbloody. Patient states today she had some slight nausea but no vomiting so she went to work. 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 She did not pass out. She denies any fever, chills, shortness of breath, URI symptoms, chest pain, dysuria. Review of systems: See HPI Medications: As listed on the chart Allergies: As listed on the chart PFSH: Per chart Vital signs: As listed on the chart. Reviewed. Physical exam: Gen: A&O x3, NAD Head: Normocephalic, atraumatic Eyes: No sclera icterus, conjunctiva clear ENT: Mildly dry mucous membranes Neck: Trachea midline, full range of motion CV: RRR, no murmurs Resp: Lungs CTA BL, no w/r/c GI: Abd soft, non-tender, no r/r/g, gravid uterus Musc: Full ROM, no deformity Skin: Warm, dry Neuro: Alert, oriented, grossly intact, sensation intact Psych: Cooperative, appropriate mood and affect [facility] Medical History Anemia in preg-unspec Chorioamnionitis, delivered, current hospitalization hemorrhage delivery delivered False labor Abnormal ultrasound Congenital abnormality ureter Home Medications ?Medication ?Instructions ?Recorded ?Last Taken ?Type multivit-min no.71-iron fum 28 1 cap PO DAILY 11/26/22 02/01/25 History mg-folate no.1 1 mg-dha 300 mg capsule (PNV-[place]) cephalexin 500 mg capsule 500 mg PO Q8H 7 days #21 caps 02/03/25 Unknown Rx Allergy/AdvReac Type Severity Reaction Status Date / Time No Known Allergies Allergy Verified 02/03/25 10:10 Family History Grandmother Breast cancer, Onset Age: 70 Paternal Thyroid disorder Paternal- hyperthyroid Aunt Cancer, Onset Age: 53 Maternal - thyroid Surgical History Previous section [place] teeth removed Social History adopted: No household members: spouse housing: house number of children: 1 current occupational status: employed current occupation: [employer] current occupational exposures/hazards: No pets and animals: Yes pets and animals: dog(s) history of recent travel: No sexually active: Yes Smoking Status: Never smoker second hand exposure: No alcohol intake: former year quit: 2019 details: Only social /occasional intake before Quit 4 years ago. substance use type: does not use well-balanced diet: about half the time caffeine: Yes Type: coffee Number of servings: 1 eating out: 1-3 times/week during the past year weight has: remained stable what type of physical activity do you participate in: walking frequency: does not exercise duration: 45-60 minutes/day tez/methodist: None seatbelt use: always do you feel safe at home: Yes additional social history: Alberto Degroot- [employer] EXAM Physical Exam Const Vital Signs: 02/03/25 10:07 02/03/25 10:44 02/03/25 10:50 Temperature 98.1 F Temperature Source Temporal Pulse Rate 101 H Pulse Rate [Lying] 97 Pulse Rate [Sitting (for 1 minute prior to obtaining)] 102 H Pulse Rate [Standing (for 1 minute prior to obtaining)] 103 H Respiratory Rate 16 Respiratory Effort Normal Respiratory Pattern Normal Blood Pressure 113/66 Blood Pressure [Lying] 115/60 Blood Pressure [Sitting (for 1 minute prior to obtaining)] 142/81 H Blood Pressure [Standing (for 1 minute prior to obtaining)] 125/76 H Blood Pressure Mean 81 Blood Pressure Mean [Lying] 78 Blood Pressure Mean [Sitting (for 1 minute prior to obtaining)] 101 Blood Pressure Mean [Standing (for 1 minute prior to obtaining)] 92 Pulse Ox 98 Oxygen Delivery Method Room Air MDM MDM MDM Narrative Medical decision making narrative: 29-year-old female who is G2, P1 and [address] weeks [address] with [address] [place] Herman for OB presents for evaluation of near syncope. Patient states yesterday she had multiple episodes of nausea and vomiting. She states that while at work she began feeling warm, lightheaded, and felt as if she was going to pass out. She did not pass out. She denies any fever, chills, shortness of breath, URI symptoms, chest pain, dysuria. Differential diagnosis includes but is not limited to viral illness, electrolyte abnormality, dehydration, UTI, vasovagal syncope. On presentation, patient no acute distress. Vitals are stable other than mild tachycardia. NS bolus and Zofran ordered. Laboratory workup ordered including a UA. I do not think any imaging is needed at this time. EKG was personally reviewed and interpreted by me, ED physician. Normal sinus rhythm. Heart rate 98. No prolonged QTc. Orthostatic vital signs are negative. Patient did have 1 hypertensive episode of 142/81. This quickly resolved. CBC without leukocytosis. Patient has baseline anemia of 10.2. Platelets unremarkable. CMP unremarkable except for mild dehydration. No transaminitis. UA positive for ketones and bacteria. She does have pyuria which is not abnormal for . This is not the cleanest sample with 5-10 squamous epithelials. Will not call UTI at this time however will send for culture and treat for a symptom bacteria in . First dose of Keflex given now. I suspect patient's symptoms were secondary to dehydration. heart tones 148. However given her one episode of HTN we will reach out to her DIRECTOR TRUST. I spoke with the DIRECTOR TRUST provider, given patient is 32 weeks they would like to see her over at the [facility]. Patient was updated of all results and the plan. She confirmed understanding. Patient able to discharge home. She was given a prescription for Keflex. Impression: 1. Near syncope 2. Mild dehydration 3. Nausea and vomiting 4. Asymptomatic bacteriuria in Lab Data Labs: Laboratory Results - last 24 hr 02/03/25 02/03/25 10:46 Unknown WBC 7.2 RBC 3.66 L Hgb 10.2 L Hct 32.3 L MCV 88.3 MCH 27.9 MCHC 31.6 L RDW Std Deviation 43.8 RDW Coeff of Edwin 13.5 Plt Count 309 MPV 10.2 Immature Gran % (Auto) 0.800 Neut % (Auto) 79.3 H Lymph % (Auto) 12.3 L [place] % (Auto) 6.7 Eos % (Auto) 0.6 Baso % (Auto) 0.3 Absolute Neuts (auto) 5.7 Absolute Lymphs (auto) 0.89 Nucleated RBC % 0 Sodium 136 Potassium 3.7 Chloride 106 Carbon Dioxide 19.5 L Anion Gap 11 BUN 6 Creatinine 0.56 L Estim Creat Clear Calc 175.08 Est GFR (MDRD) Non-Af 126 BUN/Creatinine Ratio 10.1 Glucose 118 H Calcium 8.8 Total Bilirubin 0.33 AST 15 ALT 12 Alkaline Phosphatase 106 H Total Protein 6.6 Albumin 3.6 Globulin 3.0 Albumin/Globulin Ratio 1.2 Urine Color Yellow Urine Clarity Sl. Cloudy Urine pH 7.0 Ur Specific [place] 1.015 Urine Protein 100 H Urine Glucose (UA) Normal Urine Ketones 5 H Urine Occult Blood 10 H Urine Nitrite Negative Urine Bilirubin Negative Urine Urobilinogen 4 H Ur Leukocyte Esterase 25 H Urine RBC 0 SEEN Urine WBC 5-10 SEEN Ur Squamous Epith Cells 5-10 SEEN Urine Bacteria 2+ Urine Mucus 0 SEEN Discharge Plan Triage Chief Complaint: Syncope ED Provider: Shane Tejeda Dx/Rx/DC Orders Clinical Impression: Dehydration, Nausea & vomiting, Asymptomatic bacteriuria during Instructions: ED Dehydration (Adult), ED Diet Vomiting Diarrhea Prescriptions: New cephalexin 500 mg capsule 500 mg PO Q8H 7 Days Qty: 21 0RF No Action PNV-[place] 28-1-300 mg capsule 1 cap PO DAILY Primary Care Provider: Care Physician,Najma Primary Referrals: Follow-up with your primary care physician [Other] - 3-5 Days Mickie Francisco MD [Med Staff - Active Staff, Obstetrics-Gynecology (OBGYN)] - 3-5 Days Activity Restrictions/Additional Instructions: You need to go straight to [facility] as they would like to see you there. They know that you are coming. You received your first dose of antibiotic here in the emergency department. Continue to take the rest of your antibiotics. Follow-up with your DIRECTOR TRUST and primary care physician. Return back to ED symptoms change or worsen. Make sure you are drinking plenty of fluids. Print Language: [place] Disposition Disposition: Home, Self Care
[2025-02-03] MEDS: 0.9% Normal Saline (1000mL) 1,000 ML 1000 ML IV (10:46)
[2025-02-03 10:50] VITALS: BP 115/60; BP 125/76; BP 142/81; PULSE 102; PULSE 103; PULSE 97
[2025-02-03 10:54] LABS: Hematocrit 32.3 % (37-47); Hemoglobin 10.2 g/dL (12.0-15.0); Immature Granulocytes Count 0.060 X10^3/uL (0.0-0.0); Mean Corp Hgb Conc 31.6 g/dL (32-36); Mean Corpuscular Volume 88.3 fL (81-99); Mean Platelet Vol. 10.2 fl (6.2-12.0); NRBC Flagged by Analyzer 0 % (0-5); Platelet Count 309 K/mm3 (150-450); RBC Distribution Width CV 13.5 % (11.6-14.6); RBC Distribution Width SD 43.8 fl (35.1-43.9); Red Blood Count 3.66 M/mm3 (4.2-5.4); White Blood Count 7.2 K/mm3 (4.4-11.0)
[2025-02-03 11:34] LABS: Mucous, Urine 0 SEEN /hpf (<or=2+); Red Blood Cells-Urine 0 SEEN /hpf (0-5)
[2025-02-03 11:51] LABS: AST(SGOT) 15 U/L (<=31); Alanine Aminotransfer ALT/SGPT 12 U/L (<=34); Albumin, Serum 3.6 g/dL (3.5-5.0); Alkaline Phosphatase 106 U/L (35-104); Anion Gap 11 (5-15); BUN 6 mg/dL (4-19); BUN/Creat Ratio 10.1 RATIO (10-20); Calcium,Total 8.8 mg/dL (7.6-11.0); Carbon Dioxide 19.5 mmol/L (21.0-32.0); Chloride 106 mmol/L (98-108); Estimated Creatinine Clearance 175.08 ml/min (50-250); Globulin 3.0 g/dL (2.2-4.2); Glucose 118 mg/dL (70-99); Potassium 3.7 mmol/L (3.3-5.1)
[2025-02-03 12:08] LABS: Color, Urine Yellow (Yellow); Glucose, Dipstick Normal (Normal); Ketone-Dipstick 5 mg/dl (Negative); Leukocyte Esterase-Dipstick 25 /ul (Negative); Nitrite-Dipstick Negative (Negative); Occult Blood-Urine 10 /ul (Negative); Protein-Dipstick 100 mg/dl (Negative); Specific Gravity, Urine 1.015 (1.002-1.030); Urine Bilirubin Dipstick Negative (Negative)
[2025-02-03 12:30] LABS: Squamous Epithelial Cells - UA 5-10 SEEN /hpf (5-10)
[2025-02-03 13:04] VITALS: BP 113/51; PULSE 97; RESP 16; TEMP 36.7; O2SAT 99
[2025-02-03 14:06] VITALS: BMI 34.7
--- NOTE | 2025-02-03 14:08 | NURSING ---
pt seen in ER prior to coming to our unit for a NST- pt was seen in ER for feeling like she was going to pass out- pt states that she was sick yesterday and could not keep anything down- it was determined that she was dehydrated and was given IVF and zofran- pt states that she is feeling much better now - pt was told then to come to OB for a NST
--- NOTE | 2025-02-03 14:52 | OB.TRI.PN ---
Progress Notes Progress Note: Karla Degroot is a 29-year-old who presented to the ED earlier today for evaluation of near syncope. Yesterday she had multiple episodes of nausea and vomiting but otherwise denies other symptoms. she was given fluids and zofran. Her labwork and EKG were only remarkable for bacteria in the urine. During orthostatic BPs, she did have one mild range BP. CMP was without any evidence of end-organ damage. She was given an Rx for Keflex for UTI. She then came to for an NST which was reactive. Her next visit is on 02/07. Laboratory Studies: Laboratory Tests 02/03/25 02/03/25 Range/Units Unknown 10:46 WBC 7.2 (4.4-11.0) K/mm3 RBC 3.66 L (4.2-5.4) M/mm3 Hgb 10.2 L (12.0-15.0) g/dL Hct 32.3 L (37-47) % MCV 88.3 (81-99) fL MCH 27.9 (27.0-32.0) pg MCHC 31.6 L (32-36) g/dL RDW Std Deviation 43.8 (35.1-43.9) fl RDW Coeff of Edwin 13.5 (11.6-14.6) % Plt Count 309 (150-450) K/mm3 MPV 10.2 (6.2-12.0) fl Immature Gran % (Auto) 0.800 (0.0-0.9) % Neut % (Auto) 79.3 H (47-70) % Lymph % (Auto) 12.3 L (19-41) % [place] % (Auto) 6.7 (0-10) % Eos % (Auto) 0.6 (0-5) % Baso % (Auto) 0.3 (0-1) % Absolute Neuts (auto) 5.7 (2.0-7.7) X10^3/uL Absolute Lymphs (auto) 0.89 (0.83-4.51) X10^3/uL Nucleated RBC % 0 (0-5) % Sodium 136 (133-145) mmol/L Potassium 3.7 (3.3-5.1) mmol/L Chloride 106 (98-108) mmol/L Carbon Dioxide 19.5 L (21.0-32.0) mmol/L Anion Gap 11 (5-15) BUN 6 (4-19) mg/dL Creatinine 0.56 L (0.70-1.20) mg/dL Estim Creat Clear Calc 175.08 (50-250) ml/min Est GFR (MDRD) Non-Af 126 (>60) BUN/Creatinine Ratio 10.1 (10-20) RATIO Glucose 118 H (70-99) mg/dL Calcium 8.8 (7.6-11.0) mg/dL Total Bilirubin 0.33 (0.00-1.30) mg/dL AST 15 (<=31) U/L ALT 12 (<=34) U/L Alkaline Phosphatase 106 H (35-104) U/L Total Protein 6.6 (5.9-8.4) g/dL Albumin 3.6 (3.5-5.0) g/dL Globulin 3.0 (2.2-4.2) g/dL Albumin/Globulin Ratio 1.2 (0.9-2.4) RATIO Urine Color Yellow (Yellow) Urine Clarity Sl. Cloudy (Clear) Urine pH 7.0 (5.0 - 8.0) Ur Specific [place] 1.015 (1.002-1.030) Urine Protein 100 H (Negative) mg/dl Urine Glucose (UA) Normal (Normal) mg/dl Urine Ketones 5 H (Negative) mg/dl Urine Occult Blood 10 H (Negative) /ul Urine Nitrite Negative (Negative) Urine Bilirubin Negative (Negative) mg/dL Urine Urobilinogen 4 H (Normal) mg/dl Ur Leukocyte Esterase 25 H (Negative) /ul Urine RBC 0 SEEN (0-5) /hpf Urine WBC 5-10 SEEN (0-5) /hpf Ur Squamous Epith Cells 5-10 SEEN (5-10) /hpf Urine Bacteria 2+ (None Seen) /hpf Urine Mucus 0 SEEN (<or=2+) /hpf NST FHR Rate Baby A Baseline: 140 Variability:: Moderate Accelerations:: 15 x 15 Decelerations:: None NST Reactive:: Yes FHR Category:: Category I
[2025-02-03 16:54] VITALS: PULSE 121; O2SAT 98
--- OUTSIDE RECORDS SUMMARY | 2025-02-03 18:49 | XMS RPT_ITS | CCD ---
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 Role Phone LAINEY LEE Unavailable Unavailable LAINEY LEE Unavailable Unavailable Patience Lance Unavailable UnavailWanda Umanzor Unavailable Unavailable LAINEY LEE A Unavailable Unavailable LAINEY LEE A Unavailable Unavailable Patience Lance Unavailable Unavailshreyas e Wanda Fritz Unavailable Unavailable EV SIDDIQUI Unavailable Unavailable GABRIELLA DUARTE Unavailable Unavailable WANDA FRITZ S Unavailable Unavailable RACHEL VALENCIA Unavailable Unavailable LAM WANDA S Unavailable Unavailable Stephen Fritza Ash Primary Care Provider No border patrol agent, [place] Primary Care Provider Pattie vailable Care Physician, No Primary Primary Care Provider Unavailable Care Physician, No Primary Referring Provider Un available Dr. Latoya Marquez Attending Provider [phone] Gianni JERSEY KNITTER, JERSEY KNITTER-C Liane Attending Provider [phone] Care Physician, No Primary Primary Care Provider Unavailable Care Physician, No Primary Referring Provider Un available Gianni JERSEY KNITTER, JERSEY KNITTER-C Liane Attending Provider [phone] Latoya Marquez Attending Provider [phone] MARISOL Boyer Attending Provider [phone] Care Physician, No Primary Primary Care Provider Unavailable Care Physician, No Primary Referring Provider Un available Gianni JERSEY KNITTER, JERSEY KNITTER-C Liane Attending Provider [phone] Dr. Mickie Murray Attending Provider [phone] Dr. Mickie Murray Referring Provider [phone] Dr. Mickie Murray Other Provider [phone] MARISOL Beckman Attending Provider [phone] MARISOL Beckman Other Provider Dr. Latoya Marquez Admit Provider Dr. Latoya Marquez Other Provider Care Physician, No Primary Primary Care Provider Unavailable Care Physician, No Primary Referring Provider Un available Kavitha Boyer CNM Attending Provider [phone] Kavitha Boyer CNM Referring Provider [phone] Nolan SENA, Dr. Coardo Attending Provider Dr. Latoya Marquez DO Attending Provider Gianni JERSEY KNITTER-CLiane Attending Provider [phone] Gianni JERSEY KNITTER-C, Liane Referring Provider [phone] Care Physician, No Primary Primary Care Physicia n Unavailable Kavitah Boyer CNM Attending Physician [phone] Nolan SENA, Dr. Corado Attending Physician Dr. Latoya Marquez DO Attending Physician Gianni JERSEY KNITTER-CLiane Attending Physician [phone] PRIMARY CARE, MD Primary Care Unavailable MICKIE MURRAY Referring Unavailabl e TAMY ZAMORANO Attending Unavailable NO PRIMARY CARE, MD Primary Care Unavailable MICKIE MURRAY Referring Unavailabl e ERNIE RODAS Attending Unavailable Care Physician, No Primary Primary Care Unava ilable Latoay Marquez Attending Unavailabl e Care Physician, No Primary Referring Unava ilable Care Physician, No Primary Primary Care Unava ilable Latoya Marquez Attending Unavailabl e Care Physician, No Primary Primary Care Unava ilable Kavitha Boyer Attending Unavailable Care Physician, No Primary Referring Unava ilable Care Physician, No Primary Referring Unava ilable Care Physician, No Primary Primary Care Unava ilable Liane Archer NP Attending Unavailable Mickie Murray Attending Unavailable Care Physician, No Primary Referring Unava ilable Care Physician, No Primary Primary Care Unava ilable Care Physician, No Primary Referring Unava ilable Kavitha Boyer Attending Unavailable Care Physician, No Primary Primary Care Unava ilable Kavitha Boyer Attending Unavailable Kavitha Boyer Referring Unavailable Care Physician, No Primary Primary Care Unava ilable Care Physician, No Primary Primary Care Unava ilable Gianni JERSEY KNITTER, Liane Attending Unavailable Gianni JERSEY KNITTERLiane Referring Unavailable Care Physician, No Primary Primary Care Physicia n Unavailable Care Physician, No Primary Referring Provider Un available Kavitha Boyer CNM Attending Physician [phone] Medications Current Medications Medication Drug Class(es) Dates Sig (Normalized) Sig (Original) Mv-Mins 86-Dlsj-Ivldn No.1-Dha (Pnv-Fraziers [place]) 28-1-300 mg capsule (14 sources) Start: 11-26-2022 Mv-Mins 48-Yrci-Wgivb No.1-Dha (Pnv-[place]) 28-1-300 mg capsule Active 1 NMA PO DAILY November 26, 2022 12:00am Complies with drug therapy Start: 11-26-2022 Start: 11-26-2022 Mv-Mins 71-Iro n-Folic No.1-Dha (Pnv-[place]) 28-1-300 mg capsule Active 1 NMA PO DAILY November 26, 2022 12:00am Start: 11-26-2022 Mv-Mins 71-Iro n-Folic No.1-Dha (Pnv-[place]) 28-1-300 mg capsule Active 1 NMA PO DAILY November 26, 2022 12:00am Start: 11-26-2022 take 1 capsule by mo ut once daily Mv-Mins 28-Dhww-Kdrad No.1-Dha (Pnv-[place]) 28-1-300 mg capsule Active 1 CAP PO DAILY November 26, 2022 12:00am Start: 11-26-2022 take 1 capsule by mouth once M v-Mins 63-Mvkv-Bhwoz No.1-Dha (Pnv-[place]) 28-1-300 mg capsule Active CAP PO November 26, 2022 12:00am Start: 11-26-2022 take 1 capsule by mouth once M v-Mins 82-Bshn-Bwfof No.1-Dha (Pnv-[place]) 28-1-300 mg capsule Active CAP PO November 25, 2022 11:00pm perflutren lipid microspheres 1.3 mL in NaCl [...] 0.9 % (flush) 10 mL (BD POSIFLUSH) Completed/Discontinued Medications Medication Drug Class(es) Dates Sig (Normalized) Sig (Original) Blood-Glucose Meter (6 sources) Start: 03-27-2023 End: 06-21-2023 Blood-Glucose Meter Discontinued 0 MC .MEDSUPPLY March 27, 2023 1:00am June 21, 2023 6:48am As directed Start: 03-27-2023 Blood-Glucose Meter Active 0 MC .MEDSUPPLY March 27, 2023 1:00am As directed Start: 03-27-2023 Blood-Glucose Meter Active 0 MC .MEDSUPPLY March 27, 2023 12:00am As directed Blood-Glucose Meter misc (8 sources) Start: 03-27-2023 End: 06-21-2023 Blood-Glucose Meter misc Dis continued 0 MC .MEDSUPPLY 1 0 March 27, 2023 1:00am June 21, 2023 6:48am As directed Start: 03-27-2023 End: 06-21-2023 Blood-Glucose Meter misc Dis continued 0 MC .MEDSUPPLY 1 March 27, 2023 1:00am June 21, 2023 6:48am As directed meclizine hydrochloride 25 mg oral tablet (14 sources) Antiemetic Start: 09-20-2020 End: 11-26-2022 take 1 tablet by mouth three times daily as needed for dizziness Meclizine 25 mg tablet Discontinued 25 mg PO THREE TIMES A DAY as needed for dizziness 30 0 September 20, 2020 8:37pm November 26, 2022 10:02am naproxen 500 mg oral tablet (9 sources) Nonsteroidal Anti-inflammatory Drug Start: 06-24-2023 End: 07-08-2023 take 1 tablet by mouth twice daily as needed for pain Naproxen 500 mg tablet Discontinued 500 mg PO TWICE A DAY as needed for pain 30 0 June 24, 2023 12:00am July 08, 2023 11:04am nystatin [id number] unt/ml topical cream (8 sources) Polyene Antifungal Start: 08-13-2023 End: 07-30-2024 Nystatin 100,000 unit/gram cream Discontinued 1 NMA TOPICAL TWICE A DAY 30 August 13, 2023 12:00am July 30, 2024 3:40pm apply twice a day to infected area. Problems Active Problems Problem Classification Problem Date Documented Date Episodic/Chronic Conditions associated with dizziness or vertigo (2 sources) Conditions associated with dizziness or vertigo Onset: 02-14-2017 Diabetes or abnormal glucose tolerance complicating ; childbirth; or the puerperium (20 sources) Hyperglycemic disorder in ; Translations: [Abnormal glucose complicating childbirth] 03-27-2023 Episodic Early or threatened labor (9 sources) False labor; Translations: [False labor, unspecified] 06-21-2023 Episodic Comment on above: irregular contractio n with unchanged cervical exam. d/c home with precautions. Genitourinary symptoms and ill-defined conditions (1 source) Proteinuria, unspecified; Translations: [Proteinuria, unspecified] Onset: 11-02-2024 Episodic Headache; including migraine (1 source) Headache; including migraine; Translations: [Headache, unspecified] Onset: 11-29-2024 Hemorrhage during ; abruptio placenta; placenta previa (8 sources) Low lying placenta; Translations: [Low lying placenta NOS or without hemorrhage, unspecified trimester] Onset: 11-29-2024 11-02-2024 Episodic Comment on above: Rpt US 28 wk Other complications of ; puerperium affecting management of mother (9 sources) Deliveries by ; Translations: [Encounter for delivery without indication] 06-22-2023 Episodic Comment on above: JV CS 40weeks failed vacuum/chorio girl: Paige Other complications of ; puerperium affecting management of mother (9 sources) hemorrhage; Translations: [Other immediate hemorrhage] 06-24-2023 Episodic Comment on above: stable. 2u PRBC on h old Other complications of ; puerperium affecting management of mother (1 source) Encounter for delivery without indication; Translations: [ delivery, without mention of indication, delivered, with or without mention of antepartum condition] 06-24-2023 Episodic Other complications of ; puerperium affecting management of mother (1 source) Other immediate hemorrhage; Translations: [Other immediate hemorrhage, unspecified as to episode of care or not applicable] 06-24-2023 Episodic Other complications of (20 sources) Maternal obesity complicating , childbirth and the puerperium, antepartum; Translations: [Obesity complicating , unspecified trimester] 01-30-2023 Chronic Comment on above: HGBA1c Other complications of (14 sources) Anemia of ; Translations: [Anemia complicating , unspecified trimester] 03-27-2023 Chronic Comment on above: Add Fe. Recheck CBC w FE studies 4 wk Other complications of (20 sources) Obesity complicating , unspecified trimester; Translations: [Obesity complicating , childbirth, or the puerperium, antepartum condition or complication] Onset: 08-05-2024 12-27-2022 Chronic Other complications of (20 sources) Anemia complicating , unspecified trimester; Translations: [Anemia of mother, unspecified as to episode of care or not applicable] 03-27-2023 Chronic Other complications of (1 source) Obesity complicating , second trimester; Translations: [Obesity complicating , second trimester] Onset: 11-29-2024 Chronic Other complications of (14 sources) ultrasound scan abnormal; Translations: [Abnormal ultrasonic finding on screening of mother] 03-27-2023 Episodic Comment on above: resolved. Ventriculo megaly w/o macrocephaly. MFM/ tx: 03/05/23:persists/stable. CMV neg. Next appt 04/02 and if persists will get NIPT/amnio-declines. Weekly BPP and recheck ventricles with MFM at 32 wk. 36 wk growth at 43% EFW and AC 30%. Other complications of (20 sources) Abnormal ultrasonic finding on screening of mother; Translations: [Abnormal finding on screening] 02-27-2023 Episodic Other complications of (20 sources) High risk ; Translations: [Supervision of high risk , unspecified, unspecified trimester] 07-30-2024 Episodic Comment on above: , FLOR 03/09/25, P C Paige, Alberto PRR, , FLOR , PC Paige, Alberto Other complications of (20 sources) History of hemorrhage; Translations: [Supervision of with other poor reproductive or obstetric history, unspecified trimester] 07-30-2024 Episodic Other complications of (7 sources) Headache; Translations: [Other specified related conditions, unspecified trimester] 11-02-2024 Episodic Comment on above: 2 events, vision mansoor nges. this occurred last also. Labs. 2 events, vision mansoor nges. this occurred last also. Labs-nl Other complications of (1 source) Supervision of high risk , unspecified, second trimester; Translations: [Supervision of high risk , unspecified, second trimester] Onset: 11-29-2024 Episodic Other complications of (1 source) Other specified related conditions, second trimester; Translations: [Other specified related conditions, second trimester] Onset: 11-29-2024 Episodic Other complications of (1 source) Supervision of with other poor reproductive or obstetric history, unspecified trimester; Translations: [Supervision of with other poor reproductive or obstetric history, unspecified trimester] Onset: 11-29-2024 Episodic Other complications of (1 source) Other specified related conditions, unspecified trimester; Translations: [Other specified related conditions, unspecified trimester] Onset: 11-13-2024 Episodic Other complications of (1 source) Supervision of high risk , unspecified, unspecified trimester; Translations: [Supervision of high risk , unspecified, unspecified trimester] Onset: 09-10-2024 Episodic Other nervous system disorders (1 source) Paresthesia; Translations: [Paresthesia of skin] Episodic Other and delivery including normal (20 sources) Normal ; Translations: [Encounter for supervision of normal first , unspecified trimester] 01-30-2023 Episodic Comment on above: XALI2P1, FLOR 06/22/23, girl Paige Alberto discussed NIPT & Car rier testing-declined Neg GBS. declined ge netic & carrier testing discussed NIPT & Car rier testing-declined;Rpt anatomy 2wk to complete Other screening for suspected conditions (not mental disorders or infectious disease) (1 source) Patient encounter status; Translations: [Encounter for screening for malformations] 03-05-2023 Episodic Polyhydramnios and other problems of amniotic cavity (10 sources) Chorioamnionitis; Translations: [Chorioamnionitis, unspecified trimester, not applicable or unspecified] 06-21-2023 Episodic Comment on above: continue amp/gent/cl abril x48 hour . Residual codes; unclassified (1 source) 24 weeks gestation of ; Translations: [24 weeks gestation of ] Onset: 11-29-2024 Episodic Residual codes; unclassified (1 source) History of uterine scar from previous surgery; Translations: [History of uterine scar from previous surgery] Onset: 11-29-2024 Episodic Residual codes; unclassified (1 source) 20 weeks gestation of ; Translations: [20 weeks gestation of ] Onset: 11-02-2024 Episodic Unclassified (1 source) Disorder of the autonomic nervous system, unspecified / G90.9(ICD-10) Onset: 04-29-2017 Unclassified (1 source) Encntr for telephoto installer exam (general) (routine) w/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 / [...] 02-06-2017 Episodic Unclassified (1 source) Encntr for telephoto installer exam (general) (routine) w/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; Translations: [Encntr for telephoto installer exam (general) (routine) w/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] Onset: 02-06-2017 NEGATED: Highlighted row has been ruled out!Unclassified (1 source) No known active problems 03-05-2023 Results Test Name Value Interpretation Reference Range Facil ity Laboratory - Chemistry and C hemistry - challengeOrdered By: Kavitha Boyer on 11-29-2024 Glucose Ql (U) Negative [facility] Laboratory - UrinalysisOrder ed By: Kavitha Boyer on 11-29-2024 Protein Ql (U) Negative [facility] Service Secretary Office Visit Reporton 11-29-2024 Service Secretary Office Visit Report [facility] [address], [address] [place] [address] OFFICE VISIT Date of Service: 11/29/24 MR#: [id number] Acct: [id number] Name: KARLA DEGROOT Rep #: [id number] : 1995 Provider: MARISOL Durham ams Age/Sex: 29/F Location: [facility] [place] Status: Signed Intake Vital Signs 11/02/24 08:11 11/29/24 09:48 Height 5 ft 6 in 5 ft 6 in Weight: 219 lb 5 oz BMI 35.4 BP 113/75 Intake Visit Reasons: 24wk ob *move 01/11 appt Chief Complaint: 24wk OB Bell Person Required: No Is patient in pain?: No Allergies No Known Allergies Allergy (Verified 11/29/24 09:47) Medications ???Medication ???Instructions ???Recorded ???Confirmed ???Type multivit-min no.71-iron fum 28 1 cap PO DAILY 11/26/22 11/29/24 History mg-folate no.1 1 mg-dha 300 mg capsule (PNV-[place]) Last Menstrual Period: 06/02/24 : No Have you fallen in the past year?: No PFSH PFSH Medical History Anemia in preg-unspec Chorioamnionitis, delivered, current hospitalization hemorrhage delivery delivered False labor Abnormal ultrasound Congenital abnormality ureter Surgical History Previous section [place] teeth removed Family History Grandmother Breast cancer, Onset Age: 70 Paternal Thyroid disorder Paternal- hyperthyroid Aunt Cancer, Onset Age: 53 Maternal - thyroid Social History adopted: No household members: spouse housing: house number of children: 1 current occupational status: employed current occupation: [employer] current occupational exposures/hazards: No pets and animals: Yes pets and animals: dog(s) history of recent travel: No sexually active: Yes Smoking Status: Never smoker second hand exposure: No alcohol intake: former year quit: 2019 details: Only social /occasional intake before Quit 4 years ago. 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 Date Name GA/Weeks Outcome Route Bth Weight Infant Gen Labor Lgth Anesthesia Del Locatn Provider FOB 06/21/23 Paige 39 live - full term 6#12 Female [facility] Dr Ramya Hidalgo Delivery Date: 06/21/23 Last Updated by: Yudelka Vance Failed vacuum/chorio. PP hemorrhage, anemia, maternal fever HPI 24wk ob *move 01/11 appt Details: KARLA DEGROOT is a 29 year old who presents for routine OB visit. OB Visit FLOR Calculator Estimated Delivery Date Method Current WG Current Estimate 03/21/25 Ultrasound #1 24w 0d Other Estimates 03/09/25 LMP (Certain) 25w 5d Expected Delivery Route/Plan repeat c/s desired Specific Issue/Plans Covid status: [] Flu vaccine: [] Tdap vaccine: [] Rhogam: [] LARC form signed: [] Problem list reviewed and updated with the most current plan of care details and appropriate orders placed. Relevant counseling for the gestational age provided. Continue routine care and follow up unless otherwise noted in visit notes/problem list details Initial Weight: 226 lb Date -???-???-???-???-???- ???-???-???-???-???-? ??-???- EGA Weight BP Urine Prot -???-???-???-???-???- ???-???-???-???-???-? ??-???- Glucose FHR FuHt Pres Dilation -???-???-???-???-???- ???-???-???-???-???-? ??-???- Effaced St Visit Note 08/05/24 -???-???-???-???-???- ???-???-???-???-???-? ??-???- 7w 3d 226 lb (+0 oz) 123/73 -???-???-???-???-???- ???-???-???-???-???-? ??-???- 158 -???-???-???-???-???- ???-???-???-???-???-? ??-???- KW- CRL not cons with dates. 1.17cm-7.2 weeks. Said she ovulated late with her last cycle. declines NIPT. will likely want R C/S 09/06/24 -???-???-???-???-???- ???-???-???-???-???-? ??-???- 12w 0d 222 lb 4 oz (-3 lb 12 oz) 139/84 -???-???-???-???-???- ???-???-???-???-???-? ??-???- 155 -???-???-???-???-???- ???-???-???-???-???-? ??-???- SM- no vb lo f labs today 10/05/24 -???-???-???-???-???- ???-???-???-???-???-? ??-???- 16w 1d 220 lb 9.6 (more content not included)... Normal [facility] Absolute lymphocyte countOrd ered By: Liane Archer on 11-02-2024 Lymphocytes Auto (Unsp spec) [#/Vol] 1.92 10*3/uL 0.83-4.51 [facility] Absolute neutrophil countOrd ered By: Liane Archer on 11-02-2024 Neutrophils (Bld) [#/Vol] 5.5 10*3/uL 2.0-7.7 [facility] Anion gap in Serum or Plasma Ordered By: Liane Archer on 11-02-2024 Anion gap [Moles/Vol] 12 mmol/L 5-15 [facility] Automated lymphocyte count a s percentage of total leukocytesOrdered By: Liane Archer on 11-02-2024 Lymphocytes/100 WBC Auto (Unsp spec) 23.9 % 19-41 [facility] BUN/creatinine ratioOrdered By: Liane Archer on 11-02-2024 Urea nitrogen/Creatinine [Mass ratio] 11.8 mg/mg 10-20 [facility] Basophil percentageOrdered B y: Liane Archer on 11-02-2024 Basophils/100 WBC (Bld) 0.5 % 0-1 [facility] Bilirubin, totalOrdered By: Liane Archer on 11-02-2024 Bilirubin [Mass/Vol] 0.21 mg/dL 0.00-1.30 [facility] CBC W/Diff, Automatedon 10-18 Absolute Lymph 1.92 X10 3/uL Normal 0.83-4.51 [facility] Comment on above: Performed By: #### L 501.0900, L500.4050, L100.0100 ####[facility] [address] [place], [address] Absolute Neut 5.5 X10 3/uL Normal 2.0-7.7 [facility] Comment on above: Performed By: #### L 501.0900, [id number], L100.0100 ####[facility] [address] [place], [address] Basophils/100 WBC (Bld) 0.5 % Normal 0-1 [facility] Comment on above: Performed By: #### L 501.0900, [id number], L100.0100 ####[facility] [address] [place], [address] Eosinophils/100 WBC (Bld) 1.4 % Normal 0-5 [facility] Comment on above: Performed By: #### L 501.0900, [id number], L100.0100 ####[facility] [address] [place], [address] Erythrocyte distribution width (RBC) [Ratio] 13.2 % Normal 11.6-14.6 [facility] Comment on above: Performed By: #### L 501.0900, [id number], L100.0100 ####[facility] [address] [place], [address] Hematocrit (Bld) [Volume fraction] 31.8 % Low 37-47 [facility] Comment on above: Performed By: #### L 501.0900, [id number], L100.0100 ####[facility] [address] [place], [address] Hemoglobin (Bld) [Mass/Vol] 10.9 g/dL Low 12.0-15.0 [facility] Comment on above: Performed By: #### L 501.0900, [id number], L100.0100 ####[facility] [address] [place], [address] IG% 0.500 Normal 0.0-0.9 [facility] Comment on above: Result Comment: IG% - Immature Granulocytes (promyelocytes, myelocytes and metamyelocytes) > 1% indicates that a LEFT SHIFT is Present. Performed By: #### L 501.0900, [id number], L100.0100 ####[facility] [address] [place], [address] Lymphocytes/100 WBC (Bld) 23.9 % Normal 19-41 [facility] Comment on above: Performed By: #### L 501.0900, [id number], L100.0100 ####[facility] [address] [place], [address] MCH (RBC) [Entitic mass] 30.3 pg Normal 27.0-32.0 [facility] Comment on above: Performed By: #### L 501.0900, [id number], L100.0100 ####[facility] [address] [place], [address] MCHC (RBC) [Mass/Vol] 34.3 g/dL Normal 32-36 [facility] Comment on above: Performed By: #### L 501.0900, [id number], L100.0100 ####[facility] [address] [place], [address] MCV (RBC) [Entitic vol] 88.3 fL Normal 81-99 [facility] Comment on above: Performed By: #### L 501.0900, [id number], L100.0100 ####[facility] [address] [place], [address] Monocytes/100 WBC (Bld) 5.5 % Normal 0-10 [facility] Comment on above: Performed By: #### L 501.0900, [id number], L100.0100 ####[facility] [address] [place], [address] Neutrophils/100 WBC (Bld) 68.2 % Normal 47-70 [facility] Comment on above: Performed By: #### L 501.0900, [id number], L100.0100 ####[facility] [address] [place], [address] Nucleated RBC (Bld) [#/Vol] 0 10*3/uL Normal 0-5 [facility] Comment on above: Performed By: #### L 501.0900, [id number], L100.0100 ####[facility] [address] [place], [address] Platelet mean volume (Bld) [Entitic vol] 10.5 fL Normal 6.2-12.0 [facility] Comment on above: Performed By: #### L 501.0900, [id number], L100.0100 ####[facility] [address] [place], [address] Platelets (Bld) [#/Vol] 265 10*3/uL Normal 150-450 [facility] Comment on above: Performed By: #### L 501.0900, L500.4050, L100.0100 ####[facility] [address] [place], [address] RBC (Bld) [#/Vol] 3.60 10*6/uL Low 4.2-5.4 [facility] Comment on above: Performed By: #### L 501.0900, L500.4050, L100.0100 ####[facility] [address] [place], [address] RDW SD 42.5 fl Normal 35.1-43.9 [facility] Comment on above: Performed By: #### L 501.0900, L500.4050, L100.0100 ####[facility] [address] [place], [address] WBC (Bld) [#/Vol] 8.0 10*3/uL Normal 4.4-11.0 [facility] Comment on above: Performed By: #### L 501.0900, L500.4050, L100.0100 ####[facility] [address] [place], [address] Carbon dioxide, total [Moles /volume] in Central venous bloodOrdered By: Liane Archer on 11-02-2024 CO2 [Moles/Vol] 18.6 mmol/L Low 21.0-32.0 [facility] Chloride assayOrdered By: Charlie Archer on 11-02-2024 Chloride [Moles/Vol] 106 mmol/L 98-108 [facility] Comprehensive Metabolic Prof ilon 11-02-2024 Albumin [Mass/Vol] 3.8 g/dL Normal 3.5-5.0 [facility] Comment on above: Performed By: #### L 501.0900, L500.4050, L100.0100 ####[facility] [address] [place], [address] Albumin/Globulin [Mass ratio] 1.4 {ratio} Normal 0.9-2.4 [facility] Comment on above: Performed By: #### L 501.0900, L500.4050, L100.0100 ####[facility] [address] [place], [address] ALK PHOS 41 U/L Normal 35-104 [facility] Comment on above: Performed By: #### L 501.0900, L500.4050, L100.0100 ####[facility] [address] [place], [address] ALT [Catalytic activity/Vol] 9 U/L Normal <=34 [facility] Comment on above: Performed By: #### L 501.0900, L500.4050, L100.0100 ####[facility] [address] [place], [address] AST [Catalytic activity/Vol] 13 U/L Normal <=31 [facility] Comment on above: Performed By: #### L 501.0900, L500.4050, L100.0100 ####[facility] [address] [place], [address] Bilirubin [Mass/Vol] 0.21 mg/dL Normal 0.00-1.30 [facility] Comment on above: Performed By: #### L 501.0900, L500.4050, L100.0100 ####[facility] [address] [place], [address] BUN/CRE 11.8 RATIO Normal 10-20 [facility] Comment on above: Performed By: #### L 501.0900, L500.4050, L100.0100 ####[facility] [address] [place], [address] Calcium [Mass/Vol] 9.1 mg/dL Normal 7.6-11.0 [facility] Comment on above: Performed By: #### L 501.0900, L500.4050, L100.0100 ####[facility] [address] [place], [address] Chloride [Moles/Vol] 106 mmol/L Normal 98-108 [facility] Comment on above: Performed By: #### L 501.0900, L500.4050, L100.0100 ####[facility] [address] [place], [address] CO2 [Moles/Vol] 18.6 mmol/L Low 21.0-32.0 [facility] Comment on above: Performed By: #### L 501.0900, L500.4050, L100.0100 ####[facility] [address] [place], [address] Creatinine [Mass/Vol] 0.49 mg/dL Low 0.70-1.20 [facility] Comment on above: Performed By: #### L 501.0900, L500.4050, L100.0100 ####[facility] [address] [place], [address] GAP 12 Normal 5-15 [facility] Comment on above: Performed By: #### L 501.0900, L500.4050, L100.0100 ####[facility] [address] [place], [address] GFR/1.73 sq M.predicted among non-blacks MDRD (S/P/Bld) [Vol rate/Area] 131 mL/min/{1.73_m2} Normal >60 [facility] Comment on above: Result Comment: mL/m in/1.73m2 CKD-EPI Creatinine Equation (2020) Performed By: #### L 501.0900, L500.4050, L100.0100 ####[facility] [address] [place], [address] Globulin (S) [Mass/Vol] 2.7 g/dL Normal 2.2-4.2 [facility] Comment on above: Performed By: #### L 501.0900, L500.4050, L100.0100 ####[facility] [address] [place], [address] Glucose [Mass/Vol] 85 mg/dL Normal 70-99 [facility] Comment on above: Performed By: #### L 501.0900, L500.4050, L100.0100 ####[facility] [address] [place], [address] Potassium [Moles/Vol] 3.8 mmol/L Normal 3.3-5.1 [facility] Comment on above: Performed By: #### L 501.0900, L500.4050, L100.0100 ####[facility] [address] [place], [address] Sodium [Moles/Vol] 136 mmol/L Normal 133-145 [facility] Comment on above: Performed By: #### L 501.0900, L500.4050, L100.0100 ####[facility] [address] [place], [address] T PROT 6.5 g/dL Normal 5.9-8.4 [facility] Comment on above: Performed By: #### L 501.0900, L500.4050, L100.0100 ####[facility] [address] [place], [address] Urea nitrogen [Mass/Vol] 6 mg/dL Normal 4-19 [facility] Comment on above: Performed By: #### L 501.0900, L500.4050, L100.0100 ####[facility] [address] [place], [address] Eosinophil percentageOrdered By: Liane Archer on 11-02-2024 Eosinophils/100 WBC (Bld) 1.4 % 0-5 [facility] Erythrocyte distribution wid th ratioOrdered By: Liane Archer on 11-02-2024 Erythrocyte distribution width (RBC) [Ratio] 13.2 % 11.6-14.6 [facility] Erythrocyte distribution wid th standard deviationOrdered By: Liane Archer on 11-02-2024 Erythrocyte distribution width (RBC) [Ratio] 42.5 fl 35.1-43.9 [facility] Glomerular filtration rate ( GFR) estimation/1.73 sq m using serum, plasma, or whole bOrdered By: Liane Archer on 11-02-2024 GFR/1.73 sq M.predicted among non-blacks MDRD (S/P/Bld) [Vol rate/Area] 131 mL/min/{1.73_m2} >60 [facility] Comment on above: mL/min/1.73m2 CKD-EP I Creatinine Equation (2020) Hematocrit Auto (Bld) [Volum e fraction]Ordered By: Liane Archer on 11-02-2024 Hematocrit (Bld) [Volume fraction] 31.8 % Low 37-47 [facility] Hemoglobin measurementOrdere d By: Liane Archer on 11-02-2024 Hemoglobin (Bld) [Mass/Vol] 10.9 g/dL Low 12.0-15.0 [facility] Immature granulocytes/100 WB C Auto (Bld)Ordered By: Liane Archer on 11-02-2024 Immature granulocytes/100 WBC (Bld) 0.500 % 0.0-0.9 [facility] Comment on above: IG% - Immature Granu locytes (promyelocytes, myelocytes and metamyelocytes) > 1% indicates that a LEFT SHIFT is Present. Laboratory - Chemistry and C hemistry - challengeOrdered By: Liane Archer on 11-02-2024 AST [Catalytic activity/Vol] 13 U/L <32 [facility] Glucose Ql (U) Negative [facility] Laboratory - UrinalysisOrder ed By: Liane Archer on 11-02-2024 Protein Ql (U) Trace [facility] MCV (mean corpuscular volume ) determinationOrdered By: Liane Archer on 11-02-2024 MCV (RBC) [Entitic vol] 88.3 fL 81-99 [facility] Mean corpuscular hemoglobin (MCH) determinationOrdered By: Liane Archer on 11-02-2024 MCH (RBC) [Entitic mass] 30.3 pg 27.0-32.0 [facility] Mean corpuscular hemoglobin concentration (MCHC) determinationOrdered By: Liane Archer on 11-02-2024 MCHC (RBC) [Mass/Vol] 34.3 g/dL 32-36 [facility] Mean platelet volume determi nationOrdered By: Liane Archer on 11-02-2024 Platelet mean volume (Bld) [Entitic vol] 10.5 fL 6.2-12.0 [facility] Monocyte percentageOrdered B y: Liane Archer on 11-02-2024 Monocytes/100 WBC (Bld) 5.5 % 0-10 [facility] Neutrophil percentageOrdered By: Liane Archer on 11-02-2024 Neutrophils/100 WBC (Bld) 68.2 % 47-70 [facility] Nucleated red blood cell per centageOrdered By: Liane Archer on 11-02-2024 Nucleated RBC/100 WBC (Bld) [Ratio] 0 % 0-5 [facility] Service Secretary Office Visit Reporton 11-02-2024 Service Secretary Office Visit Report [facility] [address], [address] [place] [address] OFFICE VISIT Date of Service: 11/02/24 MR#: [id number] Acct: [id number] Name: KARLA DEGROOT Rep #: [id number] : 1995 Provider: JESSICA ortega Age/Sex: 29/F Location: [facility] Status: Signed Intake Vital Signs 08/05/24 10:38 10/05/24 09:36 11/02/24 08:07 11/02/24 08:11 Height 5 ft 6 in 5 ft 6 in 5 ft 6 in 5 ft 6 in Weight: 220 lb BMI 35.5 BP 119/74 Intake Visit Reasons: 20wk ob Chief Complaint: 20 Week OB Bell Person Required: No Is patient in pain?: No Allergies No Known Allergies Allergy (Verified 11/02/24 08:06) Medications ???Medication ???Instructions ???Recorded ???Confirmed ???Type multivit-min no.71-iron fum 28 1 cap PO DAILY 11/26/22 11/02/24 History mg-folate no.1 1 mg-dha 300 mg capsule (PNV-[place]) Last Menstrual Period: 06/02/24 Zika: Zika virus screening: Negative : No PFSH PFSH Medical History Anemia in preg-unspec Chorioamnionitis, delivered, current hospitalization hemorrhage delivery delivered False labor Abnormal ultrasound Congenital abnormality ureter Surgical History Previous section [place] teeth removed Family History Grandmother Breast cancer, Onset Age: 70 Paternal Thyroid disorder Paternal- hyperthyroid Aunt Cancer, Onset Age: 53 Maternal - thyroid Social History adopted: No household members: spouse housing: house number of children: 1 current occupational status: employed current occupation: [employer] current occupational exposures/hazards: No pets and animals: Yes pets and animals: dog(s) history of recent travel: No sexually active: Yes Smoking Status: Never smoker second hand exposure: No alcohol intake: former year quit: 2019 details: Only social /occasional intake before Quit 4 years ago. 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 Date Name GA/Weeks Outcome Route Bth Weight Gen Labor Lgth Anesthesia Del Locatn Provider FOB 06/21/23 Paige 39 live - full term 6#12 Female [facility] Dr Ramya Hidalgo Delivery Date: 06/21/23 Last Updated by: Yudelka Vance Failed vacuum/chorio. PP hemorrhage, anemia, maternal fever HPI 20wk ob Details: KARLA DEGROOT is a 29 year old who presents for routine OB visit. OB Visit FLOR Calculator Estimated Delivery Date Method Current WG Current Estimate 03/21/25 Ultrasound #1 20w 1d Other Estimates 03/09/25 LMP (Certain) 21w 6d Expected Delivery Route/Plan repeat c/s desired Specific Issue/Plans Covid status: [] Flu vaccine: [] Tdap vaccine: [] Rhogam: [] LARC form signed: [] Problem list reviewed and updated with the most current plan of care details and appropriate orders placed. Relevant counseling for the gestational age provided. Continue routine care and follow up unless otherwise noted in visit notes/problem list details Initial Weight: 226 lb Date -???-???-???-???-???- ???-???-???-???-???-? ??-???- EGA Weight BP Urine Prot -???-???-???-???-???- ???-???-???-???-???-? ??-???- Glucose FHR FuHt Pres Dilation -???-???-???-???-???- ???-???-???-???-???-? ??-???- Effaced St Visit Note 08/05/24 -???-???-???-???-???- ???-???-???-???-???-? ??-???- 7w 3d 226 lb (+0 oz) 123/73 -???-???-???-???-???- ???-???-???-???-???-? ??-???- 158 -???-???-???-???-???- ???-???-???-???-???-? ??-???- KW- CRL not cons with dates. 1.17cm-7.2 weeks. Said she ovulated late with her last cycle. declines NIPT. will likely want R C/S 09/06/24 -???-???-???-???-???- ???-???-???-???-???-? ??-???- 12w 0d 222 lb 4 oz (-3 lb 12 oz) 139/84 -???-???-???-???-???- ???-???-???-???-???-? ??-???- 155 -???-???-???-???-???- ???-???-???-???-???-? ??-???- SM- no vb lo f labs today 10/05/24 -???-???-???-???-???- ???-??? (more content not included)... Normal [facility] Platelet countOrdered By: Charlie Archer on 11-02-2024 Platelets (Bld) [#/Vol] 265 10*3/uL 150-450 [facility] Potassium measurement (mass/ volume)Ordered By: Liane Archer on 11-02-2024 Potassium (Unsp spec) [Mass/Vol] 3.8 mmol/L 3.3-5.1 [facility] Protein+Creatinine Ratio,Uri neon 11-02-2024 PROT:CRE RATIO 186 mg/g CRE Normal 0-200 [facility] Comment on above: Performed By: #### L 501.0900, L500.4050, L100.0100 ####[facility] [address] [place], [address] Protein (U) [Mass/Vol] 29.2 mg/dL High 0.0-12.0 [facility] Comment on above: Performed By: #### L 501.0900, L500.4050, L100.0100 ####[facility] [address] [place], [address] UR CREAT 157.00 mg/dL Normal 28.00-217.00 [facility] Comment on above: Performed By: #### L 501.0900, L500.4050, L100.0100 ####[facility] [address] [place], [address] RBC Auto (Bld) [#/Vol]Ordere d By: Liane Archer on 11-02-2024 RBC (Bld) [#/Vol] 3.60 10*6/uL Low 4.2-5.4 [facility] Random urine creatinine elie urement (mass/volume)Ordered By: Liane Archer on 11-02-2024 Creatinine Unsp time (U) [Mass/Vol] 157.00 mg/dL 28.00-217.00 [facility] Serum creatinine measurement (mass/volume)Ordered By: Liane Archer on 11-02-2024 Creatinine [Mass/Vol] 0.49 mg/dL Low 0.70-1.20 [facility] Serum globulin measurementOr dered By: Liane Archer on 11-02-2024 Globulin (S) [Mass/Vol] 2.7 g/dL 2.2-4.2 [facility] Serum glucose measurement (m ass/volume)Ordered By: Liane Archer on 11-02-2024 Glucose [Mass/Vol] 85 mg/dL 70-99 [facility] Serum or plasma alanine vargas otransferase (ALT) measurementOrdered By: Liane Archer on 11-02-2024 ALT [Catalytic activity/Vol] 9 U/L <35 [facility] Serum or plasma albumin elie urement (mass/volume)Ordered By: Liane Archer on 11-02-2024 Albumin [Mass/Vol] 3.8 g/dL 3.5-5.0 [facility] Serum or plasma albumin/glob ulin mass ratioOrdered By: Liane Archer on 11-02-2024 Albumin/Globulin [Mass ratio] 1.4 {ratio} 0.9-2.4 [facility] Serum or plasma alkaline jose sphatase measurementOrdered By: Liane Archer on 11-02-2024 ALP [Catalytic activity/Vol] 41 U/L 35-104 [facility] Serum or plasma calcium elie urement (mass/volume)Ordered By: Liane Archer on 11-02-2024 Calcium [Mass/Vol] 9.1 mg/dL 7.6-11.0 [facility] Serum or plasma urea nitroge n measurement (mass/volume)Ordered By: Liane Archer on 11-02-2024 Urea nitrogen [Mass/Vol] 6 mg/dL 4-19 [facility] Sodium levelOrdered By: Chan emily Gianni on 11-02-2024 Sodium [Moles/Vol] 136 mmol/L 133-145 [facility] Total proteinOrdered By: Jonel velazquez Gianni on 11-02-2024 Protein [Mass/Vol] 6.5 g/dL 5.9-8.4 [facility] Urine protein measurement (m ass/volume)Ordered By: Liane Archer on 11-02-2024 Protein (U) [Mass/Vol] 29.2 mg/dL High 0.0-12.0 [facility] Urine protein/creatinine mas s ratioOrdered By: Liane Archer on 11-02-2024 Protein/Creatinine (U) [Mass ratio] 186 mg/g CRE 0-200 [facility] White blood cell (WBC) count Ordered By: Liane Archer on 11-02-2024 WBC (Bld) [#/Vol] 8.0 10*3/uL 4.4-11.0 [facility] Laboratory - Chemistry and C hemistry - challengeOrdered By: Latoya Newman on 10-05-2024 Glucose Ql (U) Negative [facility] Laboratory - UrinalysisOrder ed By: Latoya Newman on 10-05-2024 Protein Ql (U) Negative [facility] Service Secretary Office Visit Reporton 10-05-2024 Service Secretary Office Visit Report [facility] [address], [address] [place] [address] OFFICE VISIT Date of Service: 10/05/24 MR#: [id number] Acct: [id number] Name: KARLA DEGROOT Rep #: [id number] : 1995 Provider: Dr. Latoya Rogers DO Age/Sex: 28/F Location: [facility] Status: Signed Intake Vital Signs 08/05/24 10:38 09/06/24 08:29 10/05/24 09:36 10/05/24 09:56 Height 5 ft 6 in 5 ft 6 in 5 ft 6 in Weight: 220 lb 9.6 oz BP 134/76 H Intake Visit Reasons: 15wk ob Bell Person Required: No Is patient in pain?: No Allergies No Known Allergies Allergy (Verified 10/05/24 09:36) Medications ???Medication ???Instructions ???Recorded ???Confirmed ???Type multivit-min no.71-iron fum 28 1 cap PO DAILY 11/26/22 10/05/24 History mg-folate no.1 1 mg-dha 300 mg capsule (PNV-[place]) Last Menstrual Period: 06/02/24 Zika: Zika virus screening: Negative : No PFSH PFSH Medical History Anemia in preg-unspec Chorioamnionitis, delivered, current hospitalization hemorrhage delivery delivered False labor Abnormal ultrasound Congenital abnormality ureter Surgical History Previous section [place] teeth removed Family History Grandmother Breast cancer, Onset Age: 70 Paternal Thyroid disorder Paternal- hyperthyroid Aunt Cancer, Onset Age: 53 Maternal - thyroid Social History adopted: No household members: spouse housing: house number of children: 1 current occupational status: employed current occupation: [employer] current occupational exposures/hazards: No pets and animals: Yes pets and animals: dog(s) history of recent travel: No sexually active: Yes Smoking Status: Never smoker second hand exposure: No alcohol intake: former year quit: 2019 details: Only social /occasional intake before Quit 4 years ago. 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 Date Name GA/Weeks Outcome Route Bth Weight Gen Labor Lgth Anesthesia Del Locatn Provider FOB 06/21/23 Pagie 39 live - full term 6#12 Female [facility] Dr Ramya Hidalgo Delivery Date: 06/21/23 Last Updated by: Yudelka Vance Failed vacuum/chorio. PP hemorrhage, anemia, maternal fever HPI 15wk ob Details: KARLA DEGROOT is a 28 year old who presents for routine OB visit. OB Visit FLOR Calculator Estimated Delivery Date Method Current WG Current Estimate 03/21/25 Ultrasound #1 16w 1d Other Estimates 03/09/25 LMP (Certain) 17w 6d Expected Delivery Route/Plan repeat c/s desired Specific Issue/Plans Covid status: [] Flu vaccine: [] Tdap vaccine: [] Rhogam: [] LARC form signed: [] Problem list reviewed and updated with the most current plan of care details and appropriate orders placed. Relevant counseling for the gestational age provided. Continue routine care and follow up unless otherwise noted in visit notes/problem list details Initial Weight: 226 lb Date -???-???-???-???-???- ???-???-???-???-???-? ??-???- EGA Weight BP Urine Prot -???-???-???-???-???- ???-???-???-???-???-? ??-???- Glucose FHR FuHt Pres Dilation -???-???-???-???-???- ???-???-???-???-???-? ??-???- Effaced St Visit Note 08/05/24 -???-???-???-???-???- ???-???-???-???-???-? ??-???- 7w 3d 226 lb (+0 oz) 123/73 -???-???-???-???-???- ???-???-???-???-???-? ??-???- 158 -???-???-???-???-???- ???-???-???-???-???-? ??-???- KW- CRL not cons with dates. 1.17cm-7.2 weeks. Said she ovulated late with her last cycle. declines NIPT. will likely want R C/S 09/06/24 -???-???-???-???-???- ???-???-???-???-???-? ??-???- 12w 0d 222 lb 4 oz (-3 lb 12 oz) 139/84 -???-???-???-???-???- ???-???-???-???-???-? ??-???- 155 -???-???-???-???-???- ???-???-???-???-???-? ??-???- SM- no vb lo f labs today 10/05/24 -???-???-???-???-???- ???-???-???-???-???-? ??-???- 16w 1d 220 lb 9 (more content not included)... Normal [facility] Absolute lymphocyte countOrd ered By: Kavitha Boyer on 09-06-2024 Lymphocytes Auto (Unsp spec) [#/Vol] 2.16 10*3/uL 0.83-4.51 [facility] Absolute neutrophil countOrd ered By: Kavitha Boyer on 09-06-2024 Neutrophils (Bld) [#/Vol] 5.3 10*3/uL 2.0-7.7 [facility] Automated lymphocyte count a s percentage of total leukocytesOrdered By: Kavitha Merlin on 09-06-2024 Lymphocytes/100 WBC Auto (Unsp spec) 27.1 % 19-41 [facility] Basophil percentageOrdered B y: Kavitha Merlin on 09-06-2024 Basophils/100 WBC (Bld) 0.4 % 0-1 [facility] CBC W/Diff, Automatedon 08-18 Absolute Lymph 2.16 X10 3/uL Normal 0.83-4.51 [facility] Comment on above: Performed By: #### L 3890.6006, L501.9985, L509.8002, L3890.6102, BTS, L100.0100, L509.4006, L3890.6301 #### [facility] [address] [place], [address] Absolute Neut 5.3 X10 3/uL Normal 2.0-7.7 [facility] Comment on above: Performed By: #### L 3890.6006, L501.9985, L509.8002, L3890.6102, BTS, L100.0100, L509.4006, L3890.6301 #### [facility] [address] [place], [address] Basophils/100 WBC (Bld) 0.4 % Normal 0-1 [facility] Comment on above: Performed By: #### L 3890.6006, L501.9985, L509.8002, L3890.6102, BTS, L100.0100, L509.4006, L3890.6301 #### [facility] [address] [place], [address] Eosinophils/100 WBC (Bld) 1.0 % Normal 0-5 [facility] Comment on above: Performed By: #### L 3890.6006, L501.9985, L509.8002, L3890.6102, BTS, L100.0100, L509.4006, L3890.6301 #### [facility] [address] [place], [address] Erythrocyte distribution width (RBC) [Ratio] 12.9 % Normal 11.6-14.6 [facility] Comment on above: Performed By: #### L 3890.6006, L501.9985, L509.8002, L3890.6102, BTS, L100.0100, L509.4006, L3890.6301 #### [facility] [address] [place], [address] Hematocrit (Bld) [Volume fraction] 37.0 % Normal 37-47 [facility] Comment on above: Performed By: #### L 3890.6006, L501.9985, L509.8002, L3890.6102, BTS, L100.0100, L509.4006, L3890.6301 #### [facility] [address] [place], [address] Hemoglobin (Bld) [Mass/Vol] 12.1 g/dL Normal 12.0-15.0 [facility] Comment on above: Performed By: #### L 3890.6006, L501.9985, L509.8002, L3890.6102, BTS, L100.0100, L509.4006, L3890.6301 #### [facility] [address] [place], [address] IG% 0.400 Normal 0.0-0.9 [facility] Comment on above: Result Comment: IG% - Immature Granulocytes (promyelocytes, myelocytes and metamyelocytes) > 1% indicates that a LEFT SHIFT is Present. Performed By: #### L 3890.6006, L501.9985, L509.8002, L3890.6102, BTS, L100.0100, L509.4006, L3890.6301 #### [facility] [address] [place], [address] Lymphocytes/100 WBC (Bld) 27.1 % Normal 19-41 [facility] Comment on above: Performed By: #### L 3890.6006, L501.9985, L509.8002, L3890.6102, BTS, L100.0100, L509.4006, L3890.6301 #### [facility] [address] [place], [address] MCH (RBC) [Entitic mass] 28.9 pg Normal 27.0-32.0 [facility] Comment on above: Performed By: #### L 3890.6006, L501.9985, L509.8002, L3890.6102, BTS, L100.0100, L509.4006, L3890.6301 #### [facility] [address] [place], [address] MCHC (RBC) [Mass/Vol] 32.7 g/dL Normal 32-36 [facility] Comment on above: Performed By: #### L 3890.6006, L501.9985, L509.8002, L3890.6102, BTS, L100.0100, L509.4006, L3890.6301 #### [facility] [address] [place], [address] MCV (RBC) [Entitic vol] 88.3 fL Normal 81-99 [facility] Comment on above: Performed By: #### L 3890.6006, L501.9985, L509.8002, L3890.6102, BTS, L100.0100, L509.4006, L3890.6301 #### [facility] [address] [place], [address] Monocytes/100 WBC (Bld) 4.6 % Normal 0-10 [facility] Comment on above: Performed By: #### L 3890.6006, L501.9985, L509.8002, L3890.6102, BTS, L100.0100, L509.4006, L3890.6301 #### [facility] [address] [place], [address] Neutrophils/100 WBC (Bld) 66.5 % Normal 47-70 [facility] Comment on above: Performed By: #### L 3890.6006, L501.9985, L509.8002, L3890.6102, BTS, L100.0100, L509.4006, L3890.6301 #### [facility] [address] [place], [address] Nucleated RBC (Bld) [#/Vol] 0 10*3/uL Normal 0-5 [facility] Comment on above: Performed By: #### L 3890.6006, L501.9985, L509.8002, L3890.6102, BTS, L100.0100, L509.4006, L3890.6301 #### [facility] [address] [place], [address] Platelet mean volume (Bld) [Entitic vol] 10.2 fL Normal 6.2-12.0 [facility] Comment on above: Performed By: #### L 3890.6006, L501.9985, L509.8002, L3890.6102, BTS, L100.0100, L509.4006, L3890.6301 #### [facility] [address] [place], [address] Platelets (Bld) [#/Vol] 289 10*3/uL Normal 150-450 [facility] Comment on above: Performed By: #### L 3890.6006, L501.9985, L509.8002, L3890.6102, BTS, L100.0100, L509.4006, L3890.6301 #### [facility] [address] [place], [address] RBC (Bld) [#/Vol] 4.19 10*6/uL Low 4.2-5.4 [facility] Comment on above: Performed By: #### L 3890.6006, L501.9985, L509.8002, L3890.6102, BTS, L100.0100, L509.4006, L3890.6301 #### [facility] [address] [place], [address] RDW SD 41.4 fl Normal 35.1-43.9 [facility] Comment on above: Performed By: #### L 3890.6006, L501.9985, L509.8002, L3890.6102, BTS, L100.0100, L509.4006, L3890.6301 #### [facility] [address] [place], [address] WBC (Bld) [#/Vol] 8.0 10*3/uL Normal 4.4-11.0 [facility] Comment on above: Performed By: #### L 3890.6006, L501.9985, L509.8002, L3890.6102, BTS, L100.0100, L509.4006, L3890.6301 #### [facility] [address] [facility], [address] Eosinophil percentageOrdered By: Kavitha Boyer on 09-06-2024 Eosinophils/100 WBC (Bld) 1.0 % 0-5 [facility] Erythrocyte distribution wid th ratioOrdered By: Kavitha Boyer on 09-06-2024 Erythrocyte distribution width (RBC) [Ratio] 12.9 % 11.6-14.6 [facility] Erythrocyte distribution wid th standard deviationOrdered By: Kavitha Boyer on 09-06-2024 Erythrocyte distribution width (RBC) [Ratio] 41.4 fl 35.1-43.9 [facility] HIVon 09-06-2024 HIV Non-Reactive Normal Nonreactive [facility] Comment on above: Result Comment: Non- Reactive Reactive Repeatedly reactive samples must be confirmed according to CDC recommended confirmatory algorithms. The subresults for either HIVAG or AHIV can be used as an aid in the selection of the confirmation algorithm for reactive samples. Send out specimens with Reactive results to [facility] for confirmation. Order the HIV antibody detection and differentiation: lc#[id number] Performed By: #### L 3890.6006, L501.9985, L509.8002, L3890.6102, BTS, L100.0100, L509.4006, L3890.6301 ####[facility] [address] [place], [address] Hematocrit Auto (Bld) [Volum e fraction]Ordered By: Kavitha Boyer on 09-06-2024 Hematocrit (Bld) [Volume fraction] 37.0 % 37-47 [facility] Hemoglobin A1con 09-06-2024 HbA1c (Bld) [Mass fraction] 5.5 % Normal <=5.6 [facility] Comment on above: Result Comment: Norm al < 5.7 % Prediabetic 5.7 - 6.4 % Diabetic >or= 6.5 % Please note range changes. Performed By: #### L 3890.6006, L501.9985, L509.8002, L3890.6102, BTS, L100.0100, L509.4006, L3890.6301 #### [facility] [address] [place], [address] Hemoglobin A1c percentageOrd ered By: Kavitha Boyer on 09-06-2024 HbA1c (Bld) [Mass fraction] 5.5 % <5.7 [facility] Comment on above: Normal < 5.7 % Predi abetic 5.7 - 6.4 % Diabetic >or= 6.5 % Please note range changes. Hemoglobin measurementOrdere d By: Kavitha Boyer on 09-06-2024 Hemoglobin (Bld) [Mass/Vol] 12.1 g/dL 12.0-15.0 [facility] Hepatitis C Antibodyon 09-06 Hepatitis C Ab Non-Reactive Normal Nonreactive [facility] Comment on above: Result Comment: Reac tive: Presumptive evidence of antibodies to HCV. Follow CDC recommendations for supplemental testing. Non-Reactive: Antibodies to HCV were not detected; does not exclude the possibility of exposure to HCV Reactive Results are presumptive evidence of antibodies to HCV. Follow CDC recommendations for supplemental testing. Order confirmation testing: HCV Quant by PCR testing - HCVPCR #[id number] Non Reactive: < 0.8 Equivocal: >/= 0.8 to < 1.0 Reactive: >/= 1.0 The [facility] requires that a reactive/equivocal HCV antibody result be sent out for confirmation. HCV Quant by PCR testing. Performed By: #### L 3890.6006, L501.9985, L509.8002, L3890.6102, BTS, L100.0100, L509.4006, L3890.6301 ####[facility] [address] [place], [place], [id number] Immature granulocytes/100 WB C Auto (Bld)Ordered By: Kavitha Boyer on 09-06-2024 Immature granulocytes/100 WBC (Bld) 0.400 % 0.0-0.9 [facility] Comment on above: IG% - Immature Granu locytes (promyelocytes, myelocytes and metamyelocytes) > 1% indicates that a LEFT SHIFT is Present. L3890.6102on 09-06-2024 HEP B Surf Ag Non-Reactive Normal Nonreactive [facility] Comment on above: Result Comment: Reac tive: Presumptive evidence of HBV. Repeatedly reactive samples must be confirmed using a neutralization test ([employer] HBsAg Confirmatory Test) Non-Reactive: HBsAg not detected; does not exclude the possibility of exposure to HBV Performed By: #### L 3890.6006, L501.9985, L509.8002, L3890.6102, BTS, L100.0100, L509.4006, L3890.6301 ####[facility] [address] [place], [place], [address] L509.4006on 09-06-2024 Rubella IgG REAC Normal Nonreactive [facility] Comment on above: Result Comment: Anti body Result: Interpretation Non-Reactive: Non-Immune Reactive: Immune The following results were obtained with the [employer] Rubella IgG assay. Results from assays of other manufacturers cannot be used interchangeably. Performed By: #### L 3890.6006, L501.9985, L509.8002, L3890.6102, BTS, L100.0100, L509.4006, L3890.6301 #### [facility] [place], [address] Laboratory - Microbiology an d Antimicrobial susceptibilityOrdered By: Kavitha Boyer on 09-06-2024 HBV surface Ag Ql (S) Non-Reactive Nonreactive [facility] Comment on above: Reactive: Presumptiv e evidence of HBV. Repeatedly reactive samples must be confirmed using a neutralization test ([employer] HBsAg Confirmatory Test)Non-Reactive: HBsAg not detected; does not exclude the possibility of exposure to HBV MCV (mean corpuscular volume ) determinationOrdered By: Kavitha Boyer on 09-06-2024 MCV (RBC) [Entitic vol] 88.3 fL 81-99 [facility] Mean corpuscular hemoglobin (MCH) determinationOrdered By: Kavitha Boyer on 09-06-2024 MCH (RBC) [Entitic mass] 28.9 pg 27.0-32.0 [facility] Mean corpuscular hemoglobin concentration (MCHC) determinationOrdered By: Kavitha Boyer on 09-06-2024 MCHC (RBC) [Mass/Vol] 32.7 g/dL 32-36 [facility] Mean platelet volume determi nationOrdered By: Kavitha Boyer on 09-06-2024 Platelet mean volume (Bld) [Entitic vol] 10.2 fL 6.2-12.0 [facility] Monocyte percentageOrdered B y: Kavitha Boyer on 09-06-2024 Monocytes/100 WBC (Bld) 4.6 % 0-10 [facility] Neutrophil percentageOrdered By: Kavitha Boyer on 09-06-2024 Neutrophils/100 WBC (Bld) 66.5 % 47-70 [facility] No Panel InformationOrdered By: Kavitha Boyer on 09-06-2024 HIV (1&2) Antibody Non-Reactive Nonreactive [facility] Comment on above: Non-ReactiveReactive Repeatedly reactive samples must be confirmed according to CDC recommended confirmatory algorithms. The subresults for either HIVAG or AHIV can be used as an aid in the selection of the confirmation algorithm for reactive samples.Send out specimens with Reactive results to [facility] for confirmation.Order the HIV antibody detection and differentiation: #[id number] Nucleated red blood cell per centageOrdered By: Kavitha Boyer on 09-06-2024 Nucleated RBC/100 WBC (Bld) [Ratio] 0 % 0-5 [facility] Service Secretary Office Visit Reporton 09-06-2024 Service Secretary Office Visit Report [facility] [address], [address] [place] [address] OFFICE VISIT Date of Service: 09/06/24 MR#: [id number] Acct: [id number] Name: KARLA DEGROOT Rep #: [id number] : 1995 Provider: Dr. Mickie smith MD Age/Sex: 28/F Location: [facility] Status: Signed Intake Vital Signs 08/13/23 14:05 08/05/24 10:38 09/06/24 08:29 Height 5 ft 6 in 5 ft 6 in 5 ft 6 in Weight: 226 lb 222 lb 4 oz BMI 36.4 35.9 BP 123/73 H 139/84 H Intake Visit Reasons: 11wk OB Bell Person Required: No Is patient in pain?: No Allergies No Known Allergies Allergy (Verified 09/06/24 08:37) Medications ???Medication ???Instructions ???Recorded ???Confirmed ???Type multivit-min no.71-iron fum 28 1 cap PO DAILY 11/26/22 09/06/24 History mg-folate no.1 1 mg-dha 300 mg capsule (PNV-[place]) Last Menstrual Period: 06/02/24 Zika: Zika virus screening: Negative : No PFSH PFSH Medical History Anemia in preg-unspec Chorioamnionitis, delivered, current hospitalization hemorrhage delivery delivered False labor Abnormal ultrasound Congenital abnormality ureter Surgical History Previous section [place] teeth removed Family History Grandmother Breast cancer, Onset Age: 70 Paternal Thyroid disorder Paternal- hyperthyroid Aunt Cancer, Onset Age: 53 Maternal - thyroid Social History adopted: No household members: spouse housing: house number of children: 1 current occupational status: employed current occupation: [employer] current occupational exposures/hazards: No pets and animals: Yes pets and animals: dog(s) history of recent travel: No sexually active: Yes Smoking Status: Never smoker second hand exposure: No alcohol intake: former year quit: 2019 details: Only social /occasional intake before Quit 4 years ago. 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 Date Name GA/Weeks Outcome Route Bth Weight Infant Gen Labor Lgth Anesthesia Del Locatn Provider FOB 06/21/23 Paige 39 live - full term 6#12 Female [facility] Dr Ramya Hidalgo Delivery Date: 06/21/23 Last Updated by: Yudelka Vance Failed vacuum/chorio. PP hemorrhage, anemia, maternal fever HPI 11wk OB Details: KARLA DEGROOT is a 28 year old who presents for routine OB visit. OB Visit FLOR Calculator Estimated Delivery Date Method Current WG Current Estimate 03/21/25 Ultrasound #1 12w 0d Other Estimates 03/09/25 LMP (Certain) 13w 5d Expected Delivery Route/Plan repeat c/s desired Specific Issue/Plans Covid status: [] Flu vaccine: [] Tdap vaccine: [] Rhogam: [] LARC form signed: [] Problem list reviewed and updated with the most current plan of care details and appropriate orders placed. Relevant counseling for the gestational age provided. Continue routine care and follow up unless otherwise noted in visit notes/problem list details Initial Weight: 226 lb Date -???-???-???-???-???- ???-???-???-???-???-? ??-???- EGA Weight BP Urine Prot -???-???-???-???-???- ???-???-???-???-???-? ??-???- Glucose FHR FuHt Pres Dilation -???-???-???-???-???- ???-???-???-???-???-? ??-???- Effaced St Visit Note 08/05/24 -???-???-???-???-???- ???-???-???-???-???-? ??-???- 7w 3d 226 lb (+0 oz) 123/73 -???-???-???-???-???- ???-???-???-???-???-? ??-???- 158 -???-???-???-???-???- ???-???-???-???-???-? ??-???- KW- CRL not cons with dates. 1.17cm-7.2 weeks. Said she ovulated late with her last cycle. declines NIPT. will likely want R C/S 09/06/24 -???-???-???-???-???- ???-???-???-???-???-? ??-???- 12w 0d 222 lb 4 oz (-3 lb 12 oz) 139/84 -???-???-???-???-???- ???-???-???-???-???-? ??-???- 155 -???-???-???-???-???- ???-???-???-???-???-? ??-???- SM- no vb lo f labs today ACOG First Trimester First Trimester: Desire for , Alcoh (more content not included)... Normal [facility] Platelet countOrdered By: Andre Boyer on 09-06-2024 Platelets (Bld) [#/Vol] 289 10*3/uL 150-450 [facility] RBC Auto (Bld) [#/Vol]Ordere d By: Kavitha Boyer on 09-06-2024 RBC (Bld) [#/Vol] 4.19 10*6/uL Low 4.2-5.4 [facility] Syphilis Antibodieson 2024 Syphilis Abs Non-Reactive Normal Nonreactive [facility] Comment on above: Performed By: #### L 3890.6006, L501.9985, L509.8002, L3890.6102, BTS, L100.0100, L509.4006, L3890.6301 #### [facility] [address] [place], [place], [id number] Type AND Screenon 09-06-2024 Ab SCREEN GEL Negative Normal [facility] Comment on above: Order Comment: PN Performed By: #### L 3890.6006, L501.9985, L509.8002, L3890.6102, BTS, L100.0100, L509.4006, L3890.6301 #### [facility] [address] [place], [place], [id number] White blood cell (WBC) count Ordered By: Kavitha Boyer on 09-06-2024 WBC (Bld) [#/Vol] 8.0 10*3/uL 4.4-11.0 [facility] Chlamydia/GC TONG aptimaon CHLAMY,NUC ACID Negative Normal Negative [facility] Comment on above: Performed By: #### L 7000.1800, M100.2200 #### [facility] [address] [place], [address] GC BY NUC ACID Negative Normal Negative [facility] Comment on above: Result Comment: Perf ormed at: =G - [facility] [address] [id number] [employer] Inspector: Maggi Malave MD, Phone: [phone] Performed By: #### L 7000.1800, M100.2200 #### [facility] [address] [place], [address] Urine Cultureon 08-07-2024 URC Mixed Gram Positive Organisms Maurice Count 25,000-50,000 MIXC Mixed contaminants. Submit a new specimen if indicated. Normal [facility] Comment on above: Performed By: #### L 7000.1800, M100.2200 #### [facility] [address] [place], [address] Chlamydia trachomatis rRNA d etection by probe and target amplification methodOrdered By: Kavitha Boyer on 08-05-2024 C. trachomatis rRNA TONG+probe Ql (Unsp spec) Negative Negative [facility] Neisseria gonorrhoeae nuclei c acid detection by amplified probe techniqueOrdered By: Kavitha Boyer on 08-05-2024 N. gonorrhoeae DNA TONG+probe Ql (Unsp spec) Negative Negative [facility] Comment on above: Performed at: =G - [facility] [address] [id number] Director: Maggi Malave MD, Phone: [phone] Service Secretary Office Visit Reporton 08-05-2024 Service Secretary Office Visit Report [facility] [address], [address] [place] [address] OFFICE VISIT Date of Service: 08/05/24 MR#: [id number] Acct: [id number] Name: KARLA DEGROOT Rep #: [id number] : 1995 Provider: MARISOL Durham ams Age/Sex: 28/F Location: [facility] Status: Signed Intake Vital Signs 08/13/23 14:05 08/05/24 10:38 Height 5 ft 6 in 5 ft 6 in Weight: 226 lb BMI 36.4 BP 123/73 H Intake Visit Reasons: *EST* NOB LMP 06/02, FLOR 03/09 Chief Complaint: NOB Bell Person Required: No Is patient in pain?: No Allergies No Known Allergies Allergy (Verified 08/05/24 10:39) Medications ???Medication ???Instructions ???Recorded ???Confirmed ???Type multivit-min no.71-iron fum 28 1 cap PO DAILY 11/26/22 08/13/23 History mg-folate no.1 1 mg-dha 300 mg capsule (PNV-[place]) Last Menstrual Period: 06/02/24 Zika: Zika virus screening: Negative : No PFSH PFSH Medical History Anemia in preg-unspec Chorioamnionitis, delivered, current hospitalization hemorrhage delivery delivered False labor Abnormal ultrasound Congenital abnormality ureter Surgical History Previous section [place] teeth removed Family History Grandmother Breast cancer, Onset Age: 70 Paternal Thyroid disorder Paternal- hyperthyroid Aunt Cancer, Onset Age: 53 Maternal - thyroid Social History (Updated 08/05/24 @ 10:39 by Neela Tristan) adopted: No household members: spouse housing: house number of children: 1 financial difficulty paying for basics: somewhat hard service: No current occupational status: employed current occupation: [employer] current occupational exposures/hazards: No pets and animals: Yes pets and animals: dog(s) history of recent travel: No sexually active: Yes do you think of yourself as: straight/heterosexual Smoking Status: Never smoker second hand exposure: No alcohol intake: former year quit: 2019 details: Only social /occasional intake before Quit 4 years ago. substance use type: does not use well-balanced diet: about half the time caffeine: Yes Type: coffee Number of servings: 1 eating out: 1-3 times/week during the past year weight has: remained stable what type of physical activity do you participate in: walking How many days of moderate to strenuous exercise, like a brisk walk, did you do in the last 7 days: 1 frequency: does not exercise duration: 45-60 minutes/day tez/yazidism: None seatbelt use: always do you feel safe at home: Yes additional social history: Alberto Degroot- [employer] History 2 Elective abortions Hx Para 1 Spontaneous abortions Hx # Term Pregnancies Ectopic pregnancies Hx # Pregnancies Multiple births # of living children 1 Past Pregnancies Del. Date Name GA/Weeks Outcome Route Bth Weight Gen Labor Lgth Anesthesia Del Locatn Provider FOB 06/21/23 Paige 39 live - full term 6#12 Female [facility] Dr Ramya Hidalgo Delivery Date: 06/21/23 Last Updated by: Yudelka Vance Failed vacuum/chorio. PP hemorrhage, anemia, maternal fever HPI *EST* NOB LMP 06/02, FLOR 03/09 Details: KARLA DEGROOT is a 28 year old who presents for New OB visit. OB Visit FLOR Calculator Estimated Delivery Date Method Current WG Current Estimate 03/21/25 Ultrasound #1 7w 3d Other Estimates 03/09/25 LMP (Certain) 9w 1d Comments: HIV: Urine Culture: Sequential Screen: NIPT Screen: Estimated Due Date: 03/09/25 Expected Delivery Route/Plan repeat c/s desired Specific Issue/Plans Covid status: [] Flu vaccine: [] Tdap vaccine: [] Rhogam: [] LARC form signed: [] Problem list reviewed and updated with the most current plan of care details and appropriate orders placed. Relevant counseling for the gestational age provided. Continue routine care and follow up unless otherwise noted in visit notes/problem list details Initial Weight: 226 lb Date -???-???-???-???-???- ???-???-???-???-???-? ??-???- EGA Weight BP Urine Prot -???-???-???-???-???- ???-???-???-???-???-? ??-???- Glucose FHR FuHt Pres Dilation -???-???-???-???-???- ???-???-???-???-???-? ??-???- Effaced St Visit Note 08/05/24 -???-???-???-???-???- ???-???-???-???-???-? ??-???- 7w 3d 226 lb (+0 oz) 123/73 -???-???-???-???-???- ???-???-???-???-???-? ??-???- 158 -???-???-???-???-???- ???-???-???-???-???-? ??-???- KW- CRL not cons with dates. 1.17cm-7.2 weeks. Said she ovulated late with her last cycle. declines NIPT (more content not included)... Normal [facility] Urine cultureOrdered By: Romain Boyer on 08-05-2024 Bacteria identified Cx Nom (U) Positive Abnormal [facility] Absolute lymphocyte countOrd ered By: Trish Beckman on 06-22-2023 Lymphocytes Auto (Unsp spec) [#/Vol] 2.30 10*3/uL 0.83-4.51 [facility] Automated lymphocyte count a s percentage of total leukocytesOrdered By: Trish Beckman on 06-22-2023 Lymphocytes/100 WBC Auto (Unsp spec) 13.2 % 19-41 [facility] Basophil percentageOrdered B y: Trish Beckman on 06-22-2023 Basophils/100 WBC (Bld) 0.3 % 0-1 [facility] Eosinophils/100 WBC (Bld) 1.6 % 0-5 [facility] Hemoglobin (Bld) [Mass/Vol] 9.5 g/dL 12.0-15.0 [facility] Monocytes/100 WBC (Bld) 6.6 % 0-10 [facility] Neutrophils (Bld) [#/Vol] 13.5 10*3/uL 2.0-7.7 [facility] Neutrophils/100 WBC (Bld) 77.4 % 47-70 [facility] WBC (Bld) [#/Vol] 17.4 10*3/uL 4.4-11.0 [facility] Determination of erythrocyte mean corpuscular volume (MCV)Ordered By: Trish Beckman on 06-22-2023 MCV (RBC) [Entitic vol] 88.9 fL 81-99 [facility] Erythrocyte distribution wid th ratioOrdered By: Trish Beckman on 06-22-2023 Erythrocyte distribution width (RBC) [Ratio] 15.0 % 11.6-14.6 [facility] Erythrocyte distribution wid th standard deviationOrdered By: Trish Beckman on 06-22-2023 Erythrocyte distribution width (RBC) [Entitic vol] 48.6 fL 35.1-43.9 [facility] Hematocrit Auto (Bld) [Volum e fraction]Ordered By: Trish Beckman on 06-22-2023 Hematocrit (Bld) [Volume fraction] 30.3 % 37-47 [facility] Immature granulocytes/100 WB C Auto (Bld)Ordered By: Trish Beckman on 06-22-2023 Immature granulocytes/100 WBC (Bld) 0.900 % 0.0-0.9 [facility] Comment on above: IG% - Immature Granu locytes (promyelocytes, myelocytes and metamyelocytes) > 1% indicates that a LEFT SHIFT is Present. Laboratory - Hematology and Cell countsOrdered By: Trish Beckman on 06-22-2023 MCH (RBC) [Entitic mass] 27.9 pg 27.0-32.0 [facility] MCHC (RBC) [Mass/Vol] 31.4 g/dL 32-36 [facility] Nucleated RBC/100 WBC (Bld) [Ratio] 0 % 0-5 [facility] Platelet mean volume (Bld) [Entitic vol] 10.2 fL 6.2-12.0 [facility] Platelets (Bld) [#/Vol] 330 10*3/uL 150-450 [facility] RBC Auto (Bld) [#/Vol]Ordere d By: Trish Beckman on 06-22-2023 RBC (Bld) [#/Vol] 3.41 10*6/uL 4.2-5.4 [facility] Blood manual differential co mment interpretation (narrative result)Ordered By: Latoya Newman on 06-21-2023 Manual differential comment Yo (Bld) [Interp] SCANNED [facility] Comment on above: MONOCYTOSIS NOTED Review by pathologistOrdered By: Latoya Newman on 06-21-2023 Pathologist review Yo (Unsp spec) [Interp] Reviewed [facility] Comment on above: Previous reported re sult: Lana cooper Edited by: ERIC on 06/23/23:1016Neutrophilic leukocytosis.Normocytic anemia.Clinical correlation necessary.Beau Bear M.D. 06/23/23 AMENDED REPORT 06/23/23 1016 PATH REV previously reported as: Lana cooper Serum Treponema species anti body detectionOrdered By: Trish Beckman on 06-21-2023 Treponema sp Ab Ql (S) Non-Reactive [facility] Laboratory - Chemistry and C hemistry - challengeon 06-16-2023 Glucose Ql (U) Negative [facility] Laboratory - Urinalysison Protein Ql (U) Negative [facility] Laboratory - Chemistry and C hemistry - challengeon 06-10-2023 Glucose Ql (U) Negative [facility] Laboratory - Urinalysison Protein Ql (U) Negative [facility] Laboratory - Chemistry and C hemistry - challengeon 06-03-2023 Glucose Ql (U) Negative [facility] Laboratory - Urinalysison Protein Ql (U) Negative [facility] Laboratory - Chemistry and C hemistry - challengeon 05-28-2023 Glucose Ql (U) Negative [facility] Laboratory - Urinalysison Protein Ql (U) Negative [facility] No Panel InformationOrdered By: Latoya Newman on 05-28-2023 Group B Streptococcus Culture Group B Beta Streptococcus is not isolated. [facility] Absolute lymphocyte countOrd ered By: Kavitha Boyer on 05-13-2023 Lymphocytes Auto (Unsp spec) [#/Vol] 1.87 10*3/uL 0.83-4.51 [facility] Automated lymphocyte count a s percentage of total leukocytesOrdered By: Kavitha Boyer on 05-13-2023 Lymphocytes/100 WBC Auto (Unsp spec) 19.3 % 19-41 [facility] Basophil percentageOrdered B y: Kavitha Boyer on 05-13-2023 Basophils/100 WBC (Bld) 0.3 % 0-1 [facility] Eosinophils/100 WBC (Bld) 1.1 % 0-5 [facility] Hemoglobin (Bld) [Mass/Vol] 11.0 g/dL 12.0-15.0 [facility] Monocytes/100 WBC (Bld) 6.2 % 0-10 [facility] Neutrophils (Bld) [#/Vol] 7.0 10*3/uL 2.0-7.7 [facility] Neutrophils/100 WBC (Bld) 72.4 % 47-70 [facility] WBC (Bld) [#/Vol] 9.7 10*3/uL 4.4-11.0 [facility] Determination of erythrocyte mean corpuscular volume (MCV)Ordered By: Kavitha Boyer on 05-13-2023 MCV (RBC) [Entitic vol] 88.0 fL 81-99 [facility] Erythrocyte distribution wid th ratioOrdered By: Kavitha Boyer on 05-13-2023 Erythrocyte distribution width (RBC) [Ratio] 13.3 % 11.6-14.6 [facility] Erythrocyte distribution wid th standard deviationOrdered By: Kavitha Boyer on 05-13-2023 Erythrocyte distribution width (RBC) [Entitic vol] 42.8 fL 35.1-43.9 [facility] Hematocrit Auto (Bld) [Volum e fraction]Ordered By: Kavitha Boyer on 05-13-2023 Hematocrit (Bld) [Volume fraction] 33.8 % 37-47 [facility] Immature granulocytes/100 WB C Auto (Bld)Ordered By: Kavitha Boyer on 05-13-2023 Immature granulocytes/100 WBC (Bld) 0.700 % 0.0-0.9 [facility] Comment on above: IG% - Immature Granu locytes (promyelocytes, myelocytes and metamyelocytes) > 1% indicates that a LEFT SHIFT is Present. Laboratory - Chemistry and C hemistry - challengeon 05-13-2023 Glucose Ql (U) Negative [facility] Laboratory - Hematology and Cell countsOrdered By: Kavitha Boyer on 05-13-2023 MCH (RBC) [Entitic mass] 28.6 pg 27.0-32.0 [facility] MCHC (RBC) [Mass/Vol] 32.5 g/dL 32-36 [facility] Nucleated RBC/100 WBC (Bld) [Ratio] 0 % 0-5 [facility] Platelet mean volume (Bld) [Entitic vol] 9.9 fL 6.2-12.0 [facility] Platelets (Bld) [#/Vol] 339 10*3/uL 150-450 [facility] Laboratory - Urinalysison Protein Ql (U) Negative [facility] RBC Auto (Bld) [#/Vol]Ordere d By: Kavitha Boyer on 05-13-2023 RBC (Bld) [#/Vol] 3.84 10*6/uL 4.2-5.4 [facility] Laboratory - Chemistry and C hemistry - challengeon 04-28-2023 Glucose Ql (U) Negative [facility] Laboratory - Urinalysison Protein Ql (U) Negative [facility] Laboratory - Chemistry and C hemistry - challengeon 04-16-2023 Glucose Ql (U) Negative [facility] Laboratory - Urinalysison Protein Ql (U) Negative [facility] Absolute lymphocyte countOrd ered By: Liane Archer on 03-27-2023 Lymphocytes Auto (Unsp spec) [#/Vol] 1.76 10*3/uL 0.83-4.51 [facility] Automated lymphocyte count a s percentage of total leukocytesOrdered By: Liane Archer on 03-27-2023 Lymphocytes/100 WBC Auto (Unsp spec) 17.2 % 19-41 [facility] Basophil percentageOrdered B y: Liane Archer on 03-27-2023 Basophils/100 WBC (Bld) 0.4 % 0-1 [facility] Eosinophils/100 WBC (Bld) 1.1 % 0-5 [facility] Hemoglobin (Bld) [Mass/Vol] 10.3 g/dL 12.0-15.0 [facility] Monocytes/100 WBC (Bld) 4.1 % 0-10 [facility] Neutrophils (Bld) [#/Vol] 7.8 10*3/uL 2.0-7.7 [facility] Neutrophils/100 WBC (Bld) 76.3 % 47-70 [facility] WBC (Bld) [#/Vol] 10.3 10*3/uL 4.4-11.0 [facility] Determination of erythrocyte mean corpuscular volume (MCV)Ordered By: Liane Archer on 03-27-2023 MCV (RBC) [Entitic vol] 91.4 fL 81-99 [facility] Erythrocyte distribution wid th ratioOrdered By: Liane Archer on 03-27-2023 Erythrocyte distribution width (RBC) [Ratio] 12.8 % 11.6-14.6 [facility] Erythrocyte distribution wid th standard deviationOrdered By: Liane Archer on 03-27-2023 Erythrocyte distribution width (RBC) [Entitic vol] 41.7 fL 35.1-43.9 [facility] Gestational diabetes screen 1-hour screen with 50g oral glucose loadOrdered By: Liane Archer on 03-27-2023 Glucose 1 Hr post 50 g glucose PO [Mass/Vol] 178 mg/dL 70-140 [facility] HIV 1 and HIV-2 antibody ass ay with HIV-1 p24 antigen detectionOrdered By: Liane Archer on 03-27-2023 HIV 1+2 Ab+HIV1 p24 Ag IA Ql Non-Reactive Nonreactive [facility] Hematocrit Auto (Bld) [Volum e fraction]Ordered By: Liane Archer on 03-27-2023 Hematocrit (Bld) [Volume fraction] 32.0 % 37-47 [facility] Immature granulocytes/100 WB C Auto (Bld)Ordered By: Liane Archer on 03-27-2023 Immature granulocytes/100 WBC (Bld) 0.900 % 0.0-0.9 [facility] Comment on above: IG% - Immature Granu locytes (promyelocytes, myelocytes and metamyelocytes) > 1% indicates that a LEFT SHIFT is Present. Laboratory - Chemistry and C hemistry - challengeon 03-27-2023 Glucose Ql (U) Negative [facility] Laboratory - Hematology and Cell countsOrdered By: Liane Archer on 03-27-2023 MCH (RBC) [Entitic mass] 29.4 pg 27.0-32.0 [facility] MCHC (RBC) [Mass/Vol] 32.2 g/dL 32-36 [facility] Nucleated RBC/100 WBC (Bld) [Ratio] 0 % 0-5 [facility] Platelet mean volume (Bld) [Entitic vol] 10.2 fL 6.2-12.0 [facility] Platelets (Bld) [#/Vol] 320 10*3/uL 150-450 [facility] Laboratory - Urinalysison Protein Ql (U) Negative [facility] RBC Auto (Bld) [#/Vol]Ordere d By: Liane Archer on 03-27-2023 RBC (Bld) [#/Vol] 3.50 10*6/uL 4.2-5.4 [facility] Serum Treponema species anti body detectionOrdered By: Liane Archer on 03-27-2023 Treponema sp Ab Ql (S) Non-Reactive [facility] Laboratory - Chemistry and C hemistry - challengeon 02-27-2023 Glucose Ql (U) Negative [facility] Laboratory - Urinalysison Protein Ql (U) Negative [facility] Laboratory - Chemistry and C hemistry - challengeon 01-30-2023 Glucose Ql (U) Negative [facility] Laboratory - Urinalysison Protein Ql (U) Negative [facility] Laboratory - Chemistry and C hemistry - challengeon 12-27-2022 Glucose Ql (U) Negative [facility] Laboratory - Urinalysison Protein Ql (U) Negative [facility] Absolute lymphocyte countOrd ered By: Mickie Murray on 12-12-2022 Lymphocytes Auto (Unsp spec) [#/Vol] 2.50 10*3/uL 0.83-4.51 [facility] Basophil percentageOrdered B y: Mickie Murray on 12-12-2022 Basophils/100 WBC (Bld) 0.4 % 0-1 [facility] Eosinophils/100 WBC (Bld) 0.8 % 0-5 [facility] Neutrophils (Bld) [#/Vol] 8.3 10*3/uL 2.0-7.7 [facility] Neutrophils/100 WBC (Bld) 72.5 % 47-70 [facility] WBC (Bld) [#/Vol] 11.4 10*3/uL 4.4-11.0 [facility] Blood erythrocytes count (nu mber/volume)Ordered By: Mickie Murray on 12-12-2022 RBC (Bld) [#/Vol] 3.99 10*6/uL 4.2-5.4 [facility] Blood hemoglobin measurement (mass/volume)Ordered By: Mickie Murray on 12-12-2022 Hemoglobin (Bld) [Mass/Vol] 11.8 g/dL 12.0-15.0 [facility] Blood lymphocytes/100 leukoc ytesOrdered By: Mickie Murray on 12-12-2022 Lymphocytes/100 WBC (Bld) 22.0 % 19-41 [facility] Blood monocytes/100 leukocyt esOrdered By: Mickie Murray on 12-12-2022 Monocytes/100 WBC (Bld) 3.7 % 0-10 [facility] Blood platelet mean volumeOr dered By: Mickie Murray on 12-12-2022 Platelet mean volume (Bld) [Entitic vol] 9.9 fL 6.2-12.0 [facility] Determination of erythrocyte mean corpuscular volume (MCV)Ordered By: Mickie Murray on 12-12-2022 MCV (RBC) [Entitic vol] 90.5 fL 81-99 [facility] HIV 1 and HIV-2 antibody ass ay with HIV-1 p24 antigen detectionOrdered By: Mickie Murray on 12-12-2022 HIV 1+2 Ab+HIV1 p24 Ag IA Ql Non-Reactive Nonreactive [facility] Hematocrit Auto (Bld) [Volum e fraction]Ordered By: Mickie Murray on 12-12-2022 Hematocrit (Bld) [Volume fraction] 36.1 % 37-47 [facility] Laboratory - Hematology and Cell countsOrdered By: Mickie Murray on 12-12-2022 Erythrocyte distribution width (RBC) [Entitic vol] 40.6 fL 35.1-43.9 [facility] Erythrocyte distribution width (RBC) [Ratio] 12.4 % 11.6-14.6 [facility] Immature granulocytes/100 WBC (Bld) 0.600 % 0.0-0.9 [facility] Comment on above: IG% - Immature Granu locytes (promyelocytes, myelocytes and metamyelocytes) > 1% indicates that a LEFT SHIFT is Present. MCH (RBC) [Entitic mass] 29.6 pg 27.0-32.0 [facility] Nucleated RBC/100 WBC (Bld) [Ratio] 0 % 0-5 [facility] MCHC Auto (RBC) [Mass/Vol]Or dered By: Mickie Murray on 12-12-2022 MCHC (RBC) [Mass/Vol] 32.7 g/dL 32-36 [facility] No Panel InformationOrdered By: Mickie Murray on 12-12-2022 Hepatitis B Surface Antigen Non-Reactive Nonreactive [facility] Hepatitis C Antibody Non-Reactive Nonreactive [facility] Comment on above: Non Reactive: < 0.8 Equivocal: >/= 0.8 to < 1.0 Reactive: >/= 1.0The CDC recommends that a reactive/equivocal HCV antibody result be followed up by the HCV Nucleic Acid Amplificationtest (052460) Rubella IgG Antibody Reactive Nonreactive [facility] Comment on above: Antibody Results Int erpretation of Immune Status Non Reactive Presumed Non-Immune Equivocal Equivocal Reactive Presumed Immune Platelets bldOrdered By: Erik Murray on 12-12-2022 Platelets (Bld) [#/Vol] 313 10*3/uL 150-450 [facility] Serum Treponema species anti body detectionOrdered By: Mickie Murray on 12-12-2022 Treponema sp Ab Ql (S) Non-Reactive [facility] Whole blood hemoglobin A1c/t otal hemoglobin ratio (mass fraction)Ordered By: Mickie Murray on 12-12-2022 HbA1c (Bld) [Mass fraction] 5.3 % 3.8-5.6 [facility] Comment on above: Normal < 5.7 % Predi abetic 5.7 - 6.4 % Diabetic >or= 6.5 % Please note range changes. C. trachomatis+N. gonorrhoea e DNA TONG+probe Ql (Unsp spec)on 07-09-2021 C. trachomatis DNA TONG+probe Ql (Unsp spec) Negative Normal Negative for Chlamydia trachomatis by amplificaton [facility] Comment on above: Order Comment: Speci men Type: SWABOrdering Facility: [facility] Address: [address] [place] [address] Performed By: #### 3 6902-5 ####[facility] [id number] [address] [place] N. gonorrhoeae DNA TONG+probe Ql (Unsp spec) Negative Normal Negative for Neisseria gonorrhoeae by amplification [facility] Comment on above: Order Comment: Speci men Type: SWABOrdering Facility: [facility] Address: [address] [place] [address] Performed By: #### 3 6902-5 ####[facility] [id number] [address] [place] CNOVon 07-09-2021 CNOV Office Visit (OBGYWM ) KARLA TUTTLE ([id number]) 1995 F Date Time Provider Department 07/09/21 10:00 AM KAITLIN MONTILLA During your visit today, we recorded the following information about you: Blood pressure Weight Height Last Period 134/70 104.3 kg 1.676 m 06/09/21 Kaitlin Montilla APRN.CNM 07/09/2021 10:31 AM Signed Karla is a 25 year old No obstetric [...] OB History No obstetric history on file. Size Marker History LMP: 03/19/2021, Having periods Age at Menarche: Age at First : Age at Menopause: Size Marker History Comments: Sexual Activity: No sexual activity [...] external genitalia normal, normal Bartholin's glands, urethra, [place]'s glands, no vulvar lesions, no cervical lesions, [...] up one year or sooner as needed JO Villa 07/18/2021 8:34 AM Signed Normal pap letter sent Referring Provider: WANDA FRITZ [[id number]] Allergies As of Date: 07/09/2021 (No Known Allergies) Date Reviewed: 07/09/2021 Reviewed by: Kaitlin Montilla APRN.CNM - Fully Assessed Reason for Visit: Well Woman [[id number]] Primary Visit Diagnosis:Encounter for gynecological examination (general) (routine) without abnormal findings [Z01.419] Other Visit Diagnoses:Screening for cervical cancer [Z12.4] Screen for STD (sexually transmitted disease) [Z11.3] Class 2 obesity with body mass index (BMI) of 37.0 to 37.9 in adult, unspecified obesity type, unspecified whether serious comorbidity present [ (more content not included)... Normal [facility] PAP FLUID CERVICAL SCREENING on 07-09-2021 CASE REPORT Normal [facility] Comment on above: Order Comment: Speci men Type: FLUID SAMPLEOrdering Facility: [facility] Address: [address] [place] [address] Result Comment: Gyne cologic Cytology Report Case: [id number] Authorizing Provider: Kaitlin Montilla APRN.CNM Collected: 07/09/2021 10:22 AM Ordering Location: OB/Gynecology Received: 07/09/2021 01:57 PM First Screen: PAULETTE Block ASCP Specimen: PAP FACETOR SCREENING, CERVICAL SCREENING FLUID Performed By: #### L [id number] ####[facility] [id number] [place] [address] [place] CLINICAL HISTORY ROUTINE EXAM Normal [facility] Comment on above: Order Comment: Speci men Type: FLUID SAMPLEOrdering Facility: [facility] Address: [address] [place] [address] Performed By: #### L [id number] ####[facility] [id number] [place] [address] [place] CYTOLOGY INTERPRETATION PAP Normal [facility] Comment on above: Order Comment: Speci men Type: FLUID SAMPLEOrdering Facility: [facility] Address: [address] [place] [address] Result Comment: Nega tive for Intraepithelial lesion or malignancy. Performed By: #### L [id number] ####[facility] [id number] [address] [place] FINAL DIAGNOSIS Normal [facility] Comment on above: Order Comment: Speci men Type: FLUID SAMPLEOrdering Facility: [facility] Address: [address] [place], [place] [id number] Result Comment: A - CERVICAL SCREENING FLUID Satisfactory for interpretation Negative for Intraepithelial lesion or malignancy. Performed By: #### L [id number] ####[facility] [id number] [address] [place] FINAL PERFORMING LAB Normal [facility] Comment on above: Order Comment: Speci men Type: FLUID SAMPLEOrdering Facility: [facility] Address: [address] [place] [address] Result Comment: Tech nical component, appointment setter screening performed at [facility], [address] [place] [address] [place] [address] CLIA# [id number] Diagnostic interpretation performed at [facility], [address] [place] [address] [place] [address] CLIA# [id number] [employer] Goods Marker: Shane De Paz M.D. Performed By: #### L [id number] ####[facility] [id number] [address] [place] HPV REQUESTED? Yes, Reflex HPV for ASCUS Normal [facility] Comment on above: Order Comment: Speci men Type: FLUID SAMPLEOrdering Facility: [facility] Address: [address] [place] [address] Performed By: #### L [id number] ####[facility] [id number] [address] [place] LMP 06/09/2021 Normal [facility] Comment on above: Order Comment: Speci men Type: FLUID SAMPLEOrdering Facility: [facility] Address: [address] [place] [address] Performed By: #### L [id number] ####[facility] [id number] [place] [address] [place] PAP DISCLAIMER COMMENT The Pap Smear is a screening test for cervical cancer. False negative results occur with all screening tests, emphasizing the need for rescreening at recommended intervals, and clinical correlation. Normal [facility] Comment on above: Order Comment: Speci men Type: FLUID SAMPLEOrdering Facility: [facility] Address: [address] [place] [address] Performed By: #### L [id number] ####[facility] [id number] [address] [place] PAP FACETOR COMMENT This specimen has been analyzed by the ThinPrep Imaging System, an automated imaging and review system, which assists the laboratory in evaluating cells on ThinPrep Pap tests. Following automated imaging, selected dhillon from every slide are reviewed by a appointment setter. Normal [facility] Comment on above: Order Comment: Speci men Type: FLUID SAMPLEOrdering Facility: [facility] Address: [address] [place] [address] Performed By: #### L [id number] ####[facility] [id number] [address] MRI BRAIN WO IVCONon 05-01-2 022 MRI BRAIN WO IVCON * * *Final Report* * * DATE OF EXAM: May 01 2021 2:44PM [facility] 0[facility] - [facility] BRAIN WO IVCON / PROCEDURE REASON: multiple diagnoses * * * * Physician Interpretation * * * * EXAMINATION: MRI BRAIN WO IVCON HISTORY: Lightheadedness POTS (postural orthostatic tachycardia syndrome) TECHNIQUE: MRI brain routine protocol without contrast. M: [id number] COMPARISON: None. RESULT: Acute Change: No evidence of an acute intracranial process. Hemorrhage: No evidence of prior parenchymal hemorrhage within the constraints of the acquisition. Mass Lesion/ Mass Effect: Arachnoid cyst overlying the left temporal pole with minimal local mass effect. Otherwise no evidence of an intracranial mass, extra-axial fluid collection, or significant localized mass effect. Chronic Change: Nonspecific punctate focus of T2/FLAIR hyperintensity in the left frontal operculum. White matter is otherwise within normal limits for age. Parenchyma: No significant parenchymal volume loss for age. Ventricles: Normal caliber and morphology. Skull Base: Hypothalamic and pituitary region are grossly normal. Craniocervical junction is normal. No significant marrow replacement process. Vasculature: Major intracranial arteries and dural venous sinuses demonstrate typical flow voids, suggesting patency by spin echo criteria. Other: The paranasal sinuses and mastoid air cells are clear. The orbits and extracranial soft tissues are unremarkable. IMPRESSION: No acute intracranial abnormality. Arachnoid cyst overlying the left temporal pole with minimal local mass effect. Nonspecific punctate focus of FLAIR hyperintensity in the left frontal operculum. Finding could be due to migraine headaches or chronic small vessel ischemia among other etiologies. Rn Rehabilitation: PSCB Transcribe Date/Time: May 01 2021 3:09P Dictated by : NATALIE REYES, DO This examination was interpreted and the report reviewed and electronically signed by: CARSON CORDOVA MD on May 01 2021 3:59PM EST [id number] Normal [facility] CNOVon 04-13-2021 CNOV Office Visit (NEURMM ) KARLA TUTTLE ([id number]) 1995 F Date Time Provider Department 04/13/21 10:00 AM YARELI LEMUS NEUR During your visit today, we recorded the following information about you: Pulse Blood pressure Weight 68/minute 133/69 105.1 kg Yareli Lemus MD 04/13/2021 10:33 AM Signed [facility] - new patient evaluation Date: April 13, 2021 Patient Name: Karla Tuttle Referring physician: Shelley Overton [address] [address] Primary physician: [place] [address] [place] [address] Reason for Evaluation: lightheadedness HPI: The pt [...] [facility] for further evaluation. Was in [facility] 09/20/2020 for intermittent dizziness. Told she may have POTS in the past but she was tired of seeing doctors and saw didn't see anyone for a few years. Previously saw Cardiology 02/19/2021 for lightheadedness and palpitations. Possible diagnosis of POTS in past based on tilt table evaluation but those records are unavailable. regulatory attorney neg for arrhthymias, echo without structural abnormalities, [...] ALLERGIES No Known Allergies REVIEW OF SYSTEMS: GEN (more content not included)... Normal [facility] CNOVon 04-02-2021 CNOV Office Visit (CAWSTR ) KARLA TUTTLE ([id number]) 1995 F Date Time Provider Department 04/02/21 3:00 PM SHELLEY OVERTON During your visit today, we recorded the following information about you: Pulse Blood pressure Weight Last Period 84/minute 130/70 104.3 kg 03/19/21 Shelley Overton APRN.SPARERIBS TRIMMER 04/08/2021 8:12 PM Signed Chief Complaint Patient presents with: Established Patient History of Present Illness: Karla Tuttle is a 25 year old female who [...] injection (DEFINITY) INTRAVENOUS DIRECTED PRN Rachel Moon APRN.SPARERIBS TRIMMER - sodium chloride 0.9 % (flush) 10 mL (BD POSIFLUSH) 10 mL INTRAVENOUS DIRECTED PRN Rachel Moon APRN.SPARERIBS TRIMMER Review of Systems Constitutional: Negative for chills, [...] and headaches. Endo/Heme/Allergies: Does not bruise/bleed easily. Psychiatric/Behaviora l: Negative for depression, memory loss and suicidal [...] Bowel sounds are normal. Palpations: Abdomen is s (more content not included)... Normal [facility] CNOVon 02-27-2021 CNOV Office Visit (VSLWST ) KARLA TUTTLE ([id number]) 1995 F Date Time Provider Department 02/27/21 3:30 PM [facility] WSTR VSLWST During your visit today, we recorded the following information about you: Shelley Overton APRN.SPARERIBS TRIMMER 02/27/2021 7:55 PM Signed Please call patient and let her know carotid US study was normal. Thank you! Referring Provider: SHELLEY OVERTON [[id number]] Allergies As of Date: 02/27/2021 (No Known Allergies) Date Reviewed: 02/21/2021 Reviewed by: Shelley Overton APRN.SPARERIBS TRIMMER - Fully Assessed Visit Diagnosis:Lightheaded ness [R42] Order(s):US CAROTID ARTERIES [facility] [[id number]] Order #: [id number]. #:[id number] Prescriptions as of 02/28/2021 - propranolol (INDERAL) 20 mg tablet Take 0.5 tablets by mouth twice daily. Facility-Administered Medications as of 02/28/2021 - perflutren lipid microspheres 1.3 mL in NaCl (PF) 0.9% 10 mL injection (DEFINITY) - sodium chloride 0.9 % (flush) 10 mL (BD POSIFLUSH) Problem List As Of Date 02/27/2021 Noted Resolved Palpitations [R00.2] 02/21/2021 Lightheadedness [R42] 02/21/2021 Encounter Status:Closed by SHELLEY OVERTON on 02/28/21 Normal [facility] CNPNon 02-23-2021 CNPN Telephone (CAWSTR) KARLA TUTTLE ([id number]) 1995 F Date Time Provider Department 02/23/21 SHELLEY OVERTON During your visit today, we recorded the following information about you: Thiago Langley Pss 02/23/2021 9:36 AM Signed Shelley, could you change the order for the Carotid to Vascular instead of Radiology? I scheduled the pt for 02/27 at 3:30 pm in the Vascular Lab in [place]. Thank you, Thiago Langley Patient Outreach Allergies As of Date: 02/23/2021 (No Known Allergies) Date Reviewed: 02/21/2021 Reviewed by: Shelley Overton, FOOD AND BEVERAGE CHECKER.SPARERIBS TRIMMER - Fully Assessed Reason for Visit: Orders [681] Primary Visit Diagnosis:Lightheaded ness [R42] Order(s): CAROTID ARTERIES [facility] [[id number]] Order #: [id number] FUTURE Prescriptions as of 02/23/2021 - propranolol (INDERAL) 20 mg tablet Take 0.5 tablets by mouth twice daily. Facility-Administered Medications as of 02/23/2021 - perflutren lipid microspheres 1.3 mL in NaCl (PF) 0.9% 10 mL injection (DEFINITY) - sodium chloride 0.9 % (flush) 10 mL (BD POSIFLUSH) Problem List As Of Date 02/23/2021 Noted Resolved Palpitations [R00.2] 02/21/2021 Lightheadedness [R42] 02/21/2021 Encounter Status:Closed by SHELLEY OVERTON on 02/23/21 [facility] CNOVon 02-19-2021 CNOV Office Visit (CAWSTR ) KARLA TUTTLE ([id number]) 1995 F Date Time Provider Department 02/19/21 2:00 PM SHELLEY OVERTON During your visit today, we recorded the following information about you: Pulse Blood pressure Weight Height 96/minute 140/74 104.3 kg 1.676 m Shelley Overton APRN.MAGALIS 02/19/2021 2:32 PM Signed Heart Disease in Women Is heart disease a problem for women? Heart disease is the leading cause of of Indian women. More women from heart disease than from cancer. A heart attack can happen when there are problems with the blood vessels that bring blood to the heart (the coronary arteries). For example, fatty deposits called plaque may build up in the coronary arteries and make them narrower. The narrowing decreases blood flow to the heart. Plaque also increases the chance that blood clots may form and block a blood vessel, which can cause a heart attack or stroke. In the first year after a heart attack, women have an increased risk of . In the first 6 years after a heart attack, they also have a higher risk of a second heart attack. Women are at high risk often because they are older at the time of the heart attack and have other medical problems. Not everyone has the same symptoms. The most common symptoms of a heart attack include: -Chest pain or pressure, squeezing, or fullness in the center of your chest that lasts more than a few minutes, or goes away and comes back (may feel like indigestion or heartburn) -Pain or discomfort in one or both arms or shoulders, or in your back, neck, jaw, or stomach -Trouble breathing -Breaking out in a cold sweat for no known reason Along with these symptoms, you may also feel very tired, faint, or be sick to your stomach. Sometimes you can be having a heart attack and not know it. Many women have chest pain or pressure, but sometimes symptoms in women are different from men?s symptoms. Or women may have additional symptoms, such as: -Unexplained anxiety and nervousness -Swelling of the ankles or lower legs Because they may not feel the typical pain in the left side of their chest, many women may ignore the symptoms of a heart attack. Call 911 for emergency help right away if you have these symptoms. Do not drive yourself to the hospital. Immediate emergency care improves your chances of survival and may help avoid damage to your heart. How can women lower their risk for heart disease? -If you have high blood pressure, carefully follow your healthcare provider's instructions for keeping it under control. -If you are a smoker, stop smoking. -Try to keep a healthy weight. If you are overweight, talk to your provider about ways to lose weight. -Eat a healthy diet that includes: ?Avoiding salty foods and not adding salt to food ?Increasing fiber, fruits, and vegetables ?Avoiding foods high in fat, cholesterol, and sugar -Exercise according to your healthcare provider's instructions. -Get enough rest and learn to use relaxation methods to help reduce stress. -Treat and control medical conditions such as diabetes and high cholesterol. If you are taking hormone therapy, you and your healthcare provider should discuss the risks and benefits. Hormone therapy may increase the risk for heart disease or stroke. Talk with your provider about taking aspirin. Low-dose aspirin therapy reduces the risk of stroke for women. But it helps to lower a woman?s risk of heart attack and other heart problems only if she is 65 or older. Make sure that your provider knows about any other medicines you are taking. If you decide you need to make changes in the way you live, you probably won't be able to turn your life around all at once. Try to develop healthy habits that incorporate your lifestyle goals. If you do, you will greatly decrease your chances for developing heart disease. You can get more information from: -[place] Heart Cerbbswyfns9-088-ZML- [place]-1 ( )www.h eart.org Developed by [employer]. Published by [employer]. Copyright ?2013 [employer] and/or one of its subsidiaries. All rights reserved. Shelley Overton APRN.SPARERIBS TRIMMER 02/21/2021 10:15 AM Signed [facility] Cardiology ([facility]) [address] [facility] [phone] OUTPATIENT VISIT February 19, 2021 2:00 PM Chief Complaint Patient presents with: New Patient: Lightheaded, palpatations History of Present Illness: Karla Tuttle is a very pleasant 25 year old female who presents for cardiology evaluation. She has a history of lightheadedness and palpitations for about the past 4 years. She has been evaluated by neurology in the past with a tilt table test and was told she may have POTS. Report is unavailable for review. She presents today due to (more content not included)... Normal [facility] CBC and Differentialon 11-13 Abs Baso 0.08 k/uL Normal <0.11 [facility] Comment on above: Performed By: #### C MP, TSH, IRON, MG1, AHCV1B, HIV12C, CBCDIF, FT4, FERR ####[place] [address] [address] [place] [phone] Abs [place] 0.62 k/uL Normal <0.87 [facility] Comment on above: Performed By: #### C MP, TSH, IRON, MG1, AHCV1B, HIV12C, CBCDIF, FT4, FERR ####[place] [address] [address] [phone] Abs Neut 4.38 k/uL Normal 1.45-7.50 [facility] Comment on above: Performed By: #### C MP, TSH, IRON, MG1, AHCV1B, HIV12C, CBCDIF, FT4, FERR ####[place] [address] [address] [place] [phone] Absolute nRBC <0.01 Normal <0.01 [facility] Comment on above: Performed By: #### C MP, TSH, IRON, MG1, AHCV1B, HIV12C, CBCDIF, FT4, FERR ####[place] [address] [address] [place] [phone] Basophils/100 WBC (Bld) 1.0 % Normal [facility] Comment on above: Performed By: #### C MP, TSH, IRON, MG1, AHCV1B, HIV12C, CBCDIF, FT4, FERR ####[place] [address] [address] [place] [phone] DTYPE Auto Diff Normal [facility] Comment on above: Performed By: #### C MP, TSH, IRON, MG1, AHCV1B, HIV12C, CBCDIF, FT4, FERR ####[place] [address] [address] [phone] Eosinophils (Bld) [#/Vol] 0.32 10*3/uL Normal <0.46 [facility] Comment on above: Performed By: #### C MP, TSH, IRON, MG1, AHCV1B, HIV12C, CBCDIF, FT4, FERR ####[address] [place] [phone] Eosinophils/100 WBC (Bld) 3.8 % Normal [facility] Comment on above: Performed By: #### C MP, TSH, IRON, MG1, AHCV1B, HIV12C, CBCDIF, FT4, FERR ####[place] [phone] Erythrocyte distribution width (RBC) [Ratio] 12.3 % Normal 11.5-15.0 [facility] Comment on above: Performed By: #### C MP, TSH, IRON, MG1, AHCV1B, HIV12C, CBCDIF, FT4, FERR ####[place] [phone] Hematocrit (Bld) [Volume fraction] 41.1 % Normal 36.0-46.0 [facility] Comment on above: Performed By: #### C MP, TSH, IRON, MG1, AHCV1B, HIV12C, CBCDIF, FT4, FERR ####[place] [address] [address] [phone] Hemoglobin (Bld) [Mass/Vol] 12.9 g/dL Normal 11.5-15.5 [facility] Comment on above: Performed By: #### C MP, TSH, IRON, MG1, AHCV1B, HIV12C, CBCDIF, FT4, FERR ####[address] [place] [phone] Lymphocytes (Bld) [#/Vol] 2.93 10*3/uL Normal 1.00-4.00 [facility] Comment on above: Performed By: #### C MP, TSH, IRON, MG1, AHCV1B, HIV12C, CBCDIF, FT4, FERR ####[place] [address] [address] [place] [phone] Lymphocytes/100 WBC (Bld) 35.1 % Normal [facility] Comment on above: Performed By: #### C MP, TSH, IRON, MG1, AHCV1B, HIV12C, CBCDIF, FT4, FERR ####[place] [address] [address] [phone] MCH 29.2 pG Normal 26.0-34.0 [facility] Comment on above: Performed By: #### C MP, TSH, IRON, MG1, AHCV1B, HIV12C, CBCDIF, FT4, FERR ####[place] [phone] MCHC (RBC) [Mass/Vol] 31.4 g/dL Normal 30.5-36.0 [facility] Comment on above: Performed By: #### C MP, TSH, IRON, MG1, AHCV1B, HIV12C, CBCDIF, FT4, FERR ####[place] [phone] MCV (RBC) [Entitic vol] 93.0 fL Normal 80.0-100.0 [facility] Comment on above: Performed By: #### C MP, TSH, IRON, MG1, AHCV1B, HIV12C, CBCDIF, FT4, FERR ####[place] [address] [address] [place] [phone] Monocytes/100 WBC (Bld) 7.4 % Normal [facility] Comment on above: Performed By: #### C MP, TSH, IRON, MG1, AHCV1B, HIV12C, CBCDIF, FT4, FERR ####[place] [address] [address] [place] [phone] Neutrophils/100 WBC (Bld) 52.7 % Normal [facility] Comment on above: Performed By: #### C MP, TSH, IRON, MG1, AHCV1B, HIV12C, CBCDIF, FT4, FERR ####[place] [address] AveCF[place], [place] [phone] NRBCs 0.0 /100 WBC Normal 0 [facility] Comment on above: Performed By: #### C MP, TSH, IRON, MG1, AHCV1B, HIV12C, CBCDIF, FT4, FERR ####[place] [address] [address] [place] [phone] Platelet mean volume (Bld) [Entitic vol] 10.6 fL Normal 9.0-12.7 [facility] Comment on above: Performed By: #### C MP, TSH, IRON, MG1, AHCV1B, HIV12C, CBCDIF, FT4, FERR ####[place] [address] [address] [place] [phone] Platelets (Bld) [#/Vol] 349 10*3/uL Normal 150-400 [facility] Comment on above: Performed By: #### C MP, TSH, IRON, MG1, AHCV1B, HIV12C, CBCDIF, FT4, FERR ####[place] [address] [address] [place], [place] [phone] RBC (Bld) [#/Vol] 4.42 10*6/uL Normal 3.90-5.20 [facility] Comment on above: Performed By: #### C MP, TSH, IRON, MG1, AHCV1B, HIV12C, CBCDIF, FT4, FERR ####[facility]CF[address] [place], [place] [phone] WBC (Bld) [#/Vol] 8.35 10*3/uL Normal 3.70-11.00 [facility] Comment on above: Performed By: #### C MP, TSH, IRON, MG1, AHCV1B, HIV12C, CBCDIF, FT4, FERR ####[facility] [place], [place] [phone] CNOVon 11-13-2020 CNOV Office Visit (FAMPWS ) KARLA TUTTLE ([id number]) 1995 F Date Time Provider Department 11/13/20 2:00 PM RACEHL MOON During your visit today, we recorded the following information about you: Pulse Respiration Blood pressure Weight 80/minute 18/minute 128/90 103 kg Last Period 10/30/20 Rachel Moon APRN.SPARERIBS TRIMMER 11/13/2020 7:50 PM Signed This is a 25 year old female who presents today with: Patient presents with: Dizziness: x 4 years, has been to Neurology and had tilt table testing done, was told could be POTS but no formal dx HISTORY OF PRESENT ILLNESS: Karla Tuttle is a 25 year old female. Patient [...] happen when standing up. Tilt table through [facility]. Dr. Natalio perry/ [facility]. Neurology. Has never had an echo. Has [...] - SODIUM CHLORIDE 0.9 % (FLUSH) INJECTION SYRIN (more content not included)... Normal [facility] Comp Metabolic Panelon 11-13 Albumin [Mass/Vol] 4.9 g/dL Normal 3.9-4.9 [facility] Comment on above: Performed By: #### C MP, TSH, IRON, MG1, AHCV1B, HIV12C, CBCDIF, FT4, FERR ####[facility] [place], [place] [phone] ALP [Catalytic activity/Vol] 47 U/L Normal 34-123 [facility] Comment on above: Performed By: #### C MP, TSH, IRON, MG1, AHCV1B, HIV12C, CBCDIF, FT4, FERR ####[facility] [place], [place] [phone] ALT [Catalytic activity/Vol] 50 U/L High 7-38 [facility] Comment on above: Performed By: #### C MP, TSH, IRON, MG1, AHCV1B, HIV12C, CBCDIF, FT4, FERR ####[place] [address] [place], [place] [phone] Anion gap [Moles/Vol] 13 mmol/L Normal 9-18 [facility] Comment on above: Performed By: #### C MP, TSH, IRON, MG1, AHCV1B, HIV12C, CBCDIF, FT4, FERR ####[place] [phone] AST [Catalytic activity/Vol] 29 U/L Normal 13-35 [facility] Comment on above: Performed By: #### C MP, TSH, IRON, MG1, AHCV1B, HIV12C, CBCDIF, FT4, FERR ####[address] [phone] Bilirubin [Mass/Vol] 0.3 mg/dL Normal 0.2-1.3 [facility] Comment on above: Performed By: #### C MP, TSH, IRON, MG1, AHCV1B, HIV12C, CBCDIF, FT4, FERR ####[place] [phone] Calcium [Mass/Vol] 9.8 mg/dL Normal 8.5-10.2 [facility] Comment on above: Performed By: #### C MP, TSH, IRON, MG1, AHCV1B, HIV12C, CBCDIF, FT4, FERR ####[address] [phone] Chloride [Moles/Vol] 104 mmol/L Normal 97-105 [facility] Comment on above: Performed By: #### C MP, TSH, IRON, MG1, AHCV1B, HIV12C, CBCDIF, FT4, FERR ####[place] [address] [address] [place], [place] [phone] CO2 [Moles/Vol] 23 mmol/L Normal 22-30 [facility] Comment on above: Performed By: #### C MP, TSH, IRON, MG1, AHCV1B, HIV12C, CBCDIF, FT4, FERR ####[facility] [place] [phone] Creatinine [Mass/Vol] 0.76 mg/dL Normal 0.58-0.96 [facility] Comment on above: Performed By: #### C MP, TSH, IRON, MG1, AHCV1B, HIV12C, CBCDIF, FT4, FERR ####[place] [address] [address] [place] [phone] eGFR- Amer. >60 Normal [facility] Comment on above: Performed By: #### C MP, TSH, IRON, MG1, AHCV1B, HIV12C, CBCDIF, FT4, FERR ####[place] [phone] eGFR-All Other Races >60 Normal [facility] Comment on above: Result Comment: eGFR (Estimated GFR) Units of measure: mL/min/1.73 meters squared eGFR is derived from the reexpressed MDRD Study equation using the following parameters: serum creatinine, age, gender and race. The creatinine assay has been calibrated to be traceable to IDMS. An eGFR <60 mL/min/1.73m2 for >3 months is consistent with chronic kidney disease. Refer to KDOQI guidelines for clinical interpretation. In patients with unstable renal function, e.g. those with acute kidney injury, the eGFR may not accurately reflect actual GFR. Performed By: #### C MP, TSH, IRON, MG1, AHCV1B, HIV12C, CBCDIF, FT4, FERR ####[place] [phone] Glucose [Mass/Vol] 82 mg/dL Normal 74-99 [facility] Comment on above: Result Comment: The [place] Diabetes Association (ADA) provides guidance for cutoff values for fasting glucose and random glucose. The ADA defines fasting as no caloric intake for at least 8 hours. Fasting plasma glucose results between 100 to 125 mg/dL indicate increased risk for diabetes (prediabetes). Fasting plasma glucose results greater than or equal to 126 mg/dL meet the criteria for diagnosis of diabetes. In the absence of unequivocal hyperglycemia, results should be confirmed by repeat testing. In a patient with classic symptoms of hyperglycemia or hyperglycemic crisis, random plasma glucose results greater than or equal to 200 mg/dL meet the criteria for diagnosis of diabetes. Reference: Standards of Medical Care in Diabetes 2016, [place] Diabetes Association. Diabetes Care. 2016.39(Suppl 1). Performed By: #### C MP, TSH, IRON, MG1, AHCV1B, HIV12C, CBCDIF, FT4, FERR ####[address] [phone] Potassium [Moles/Vol] 3.9 mmol/L Normal 3.7-5.1 [facility] Comment on above: Performed By: #### C MP, TSH, IRON, MG1, AHCV1B, HIV12C, CBCDIF, FT4, FERR ####[address] [phone] Protein [Mass/Vol] 7.3 g/dL Normal 6.3-8.0 [facility] Comment on above: Performed By: #### C MP, TSH, IRON, MG1, AHCV1B, HIV12C, CBCDIF, FT4, FERR ####[address] [phone] Sodium [Moles/Vol] 140 mmol/L Normal 136-144 [facility] Comment on above: Performed By: #### C MP, TSH, IRON, MG1, AHCV1B, HIV12C, CBCDIF, FT4, FERR ####[address] [phone] Urea nitrogen [Mass/Vol] 11 mg/dL Normal 7-21 [facility] Comment on above: Performed By: #### C MP, TSH, IRON, MG1, AHCV1B, HIV12C, CBCDIF, FT4, FERR ####[place] [id number] [place], [place] [phone] Ferritinon 11-13-2020 Ferritin [Mass/Vol] 66.0 ng/mL Normal 14.7-205.1 [facility] Comment on above: Performed By: #### C MP, TSH, IRON, MG1, AHCV1B, HIV12C, CBCDIF, FT4, FERR ####[address] [phone] Free T4on 11-13-2020 Free T4 [Mass/Vol] 1.1 ng/dL Normal 0.9-1.7 [facility] Comment on above: Performed By: #### C MP, TSH, IRON, MG1, AHCV1B, HIV12C, CBCDIF, FT4, FERR ####[address] [phone] [id number] Ag +HIV12 Abon 11-13 HIV 12 Ag/Ab Non-Reactive Normal Non Reactive [facility] Comment on above: Performed By: #### C MP, TSH, IRON, MG1, AHCV1B, HIV12C, CBCDIF, FT4, FERR ####[address] [phone] HIV-1/2 Antibody Normal [facility] Comment on above: Result Comment: Test Not Indicated Negative No evidence of HIV-1 or HIV-2 infection. Should recent infection be suspected, repeat testing may be considered 2-3 weeks after this draw. HIV Information: [place] Rev. Code 3701.243(E): This information has been disclosed to you from confidential records protected from disclosure by state law. You shall make no further disclosure of this information without the specific, written, and informed release of the individual to whom it pertains or as otherwise permitted by state law. A general authorization for the release of medical or other information is not sufficient for the purpose of the release of HIV test results or diagnoses. Performed By: #### C MP, TSH, IRON, MG1, AHCV1B, HIV12C, CBCDIF, FT4, FERR ####[place] [address] [address] [place], [place] [phone] Hep C Ab IA w/Confon 021 Hepatitis C Ab IA Negative Normal Negative [facility] Comment on above: Performed By: #### C MP, TSH, IRON, MG1, AHCV1B, HIV12C, CBCDIF, FT4, FERR ####[place] [address] [address] [place], [place] [phone] Iron and TIBCon 11-13-2020 Iron [Mass/Vol] 62 ug/dL Normal 41-186 [facility] Comment on above: Performed By: #### C MP, TSH, IRON, MG1, AHCV1B, HIV12C, CBCDIF, FT4, FERR ####[address] [phone] TIBC 368 ug/dL Normal 232-386 [facility] Comment on above: Performed By: #### C MP, TSH, IRON, MG1, AHCV1B, HIV12C, CBCDIF, FT4, FERR ####[address] [phone] Transferrin Saturatn 17 % Normal 15-57 [facility] Comment on above: Performed By: #### C MP, TSH, IRON, MG1, AHCV1B, HIV12C, CBCDIF, FT4, FERR ####[address] [place], [place] [phone] Magnesiumon 11-13-2020 Magnesium [Mass/Vol] 2.2 mg/dL Normal 1.7-2.3 [facility] Comment on above: Performed By: #### C MP, TSH, IRON, MG1, AHCV1B, HIV12C, CBCDIF, FT4, FERR ####[place] [address] [address] [place], [place] [phone] TSHon 11-13-2020 TSH Qn 1.420 m[IU]/L Normal 0.270-4.200 [facility] Comment on above: Result Comment: If t he patient is , TSH reference range varies by gestational period: First Trimester (weeks 9-12): 0.180-2.990 mcIU/mL Second Trimester: 0.110-3.980 mcIU/mL Third Trimester: 0.480-4.710 mcIU/mL Juvencio Sarabia et al. A Practical Approach for the Verifications and Determination of Site- and Trimester-Specific Reference Intervals for Thyroid Function tests in . Thyroid, 2019:29:3:412-420. Callum E, et al. 2017 Guidelines of the [place] Thyroid Association for the Diagnosis and Management of Thyroid Disease during and the . Thyroid, 2017:27:3:315-389. Performed By: #### C MP, TSH, IRON, MG1, AHCV1B, HIV12C, CBCDIF, FT4, FERR ####[facility] [address] [place], [place] [phone] Beta HCG (Qual), Serum - CHR Ion 03-25-2017 Beta HCG (Qual), Serum Negative Normal [facility] Comment on above: Performed By: #### Missael BCDFJ ####[place] [facility] [place] [id number] CBC WITH DIFF [place] 2017 Abs Baso 0.05 K/uL Normal 0.01-0.08 [facility] Comment on above: Performed By: #### C BCDFJ ####[facility] [place], [place] [address] Abs Eos 0.10 K/uL Normal 0.04-0.36 [facility] Comment on above: Performed By: #### C BCDFJ ####[place] [place] [address] [id number] Abs [place] 0.60 K/uL Normal 0.24-0.86 [facility] Comment on above: Performed By: #### C TIENDFJ ####Lauro RODRIGUEZ, [facility] [place], [place] [address] Basophils/100 WBC Auto (Bld) 0.5 % Normal [facility] Comment on above: Performed By: #### C BCDFJ ####Lauro RODRIGUEZ, [facility] [place], [place] [address] DIFFERENTIAL TYPE Electronic Differential Normal [facility] Comment on above: Performed By: #### C BCDFJ ####Lauro RODRIGUEZ, [facility] [place], [place] [address] Eosinophils/100 leukocytes 0.9 % Normal [facility] Comment on above: Performed By: #### C BCDFJ ####[facility] [place] [address] Erythrocytes (RBC) 4.40 10*6/uL Normal 3.93-5.22 [facility] Comment on above: Performed By: #### C BCDFJ ####Lauro RODRIGUEZ, [facility] [place], [place] [address] Erythrocytes (RBC) 12.7 % Normal 11.7-14.4 [facility] Comment on above: Performed By: #### C BCDFJ ####Lauro RODRIGUEZ, [facility] [place], [place] [address] Hematocrit (HCT) 38.3 % Normal 34.1-44.9 [facility] Comment on above: Performed By: #### C BCDFJ ####Lauro RODRIGUEZ, [facility] [place], [place] [address] Hemoglobin mass conc (Bld) 12.5 g/dL Normal 11.2-15.7 [facility] Comment on above: Performed By: #### C BCDFJ ####Lauro RODRIGUEZ, [facility] [place], [place] [address] Hemoglobin mass conc (Bld) 32.6 g/dL Normal 32.2-35.5 [facility] Comment on above: Performed By: #### C CAITYJ ####Lauro RODRIGUEZ, [facility] [place] [address] Hemoglobin mass conc (Bld) 28.4 pg Normal 25.6-32.2 [facility] Comment on above: Performed By: #### Missael CAROLINAJ ####Lauro RODRIGUEZ, [facility] [place] [address] IMMATURE GRANS % 0.4 % Normal [facility] Comment on above: Performed By: #### C CAITYJ ####[facility] [place] [address] IMMATURE GRANS ABSOLUTE 0.04 K/uL High 0.00-0.03 O [facility] Comment on above: Performed By: #### Missael CAROLINAJ ####[facility] [place] [address] Lymphocytes 3.35 10*3/uL Normal 1.18-3.74 [facility] Comment on above: Performed By: #### C CAITYJ ####[facility] [place] [address] Lymphocytes/100 leukocytes 31.5 % Normal [facility] Comment on above: Performed By: #### C CAITYJ ####[facility] [place] [address] MCV 87.0 fL Normal 79.4-94.8 [facility] Comment on above: Performed By: #### Missael CAROLINAJ ####[facility] [place] [address] Monocytes/100 leukocytes 5.6 % Normal [facility] Comment on above: Performed By: #### C CAITYJ ####[facility] [place] [address] NEUTROPHIL SEGMENTED 61.1 % Normal [facility] Comment on above: Performed By: #### Missael CAROLINAJ ####Lauro RODRIGUEZ, [facility] [place] [address] Nucleated erythrocytes 0.0 /100 WBC Normal 0.0-0.2 [facility] Comment on above: Performed By: #### Missael CAROLINAJ ####Lauro RODRIGUEZ, [facility] [place] [address] Platelet mean volume (PMV) 10.2 fL Normal 9.4-12.3 [facility] Comment on above: Performed By: #### Missael RESENDIZ ####Lauro RODRIGUEZ, [facility] [place] [address] Platelets 356 10*3/uL Normal 182-369 [facility] Comment on above: Performed By: #### Missael RESENDIZ ####Lauro RODRIGUEZ, [facility] [place] [address] SEGS + Bands,Absolute 6.48 K/uL High 1.56-6.13 [facility] Comment on above: Performed By: #### Missael RESENDIZ ####Lauro RODRIGUEZ, [facility] [place] [address] WBC (Leukocytes) 10.62 10*3/uL High 3.98-10.04 [facility] Comment on above: Performed By: #### Missael RESENDIZ ####Lauro RODRIGUEZ, [facility] [place] [address] CHEM 7 ED - CHRIon 8 Anion gap 14 mmol/L Normal 7-17 [facility] Comment on above: Performed By: #### Missael RESENDIZ ####Lauro RODRIGUEZ, [facility] [place] [address] BUN/Creatinine Ratio 18 mg/mg Normal [facility] Comment on above: Performed By: #### Missael RESENDIZ ####Lauro RODRIGUEZ, [facility] [place] [address] Chloride 106 mmol/L Normal 98-108 [facility] Comment on above: Performed By: #### C BCROSALVAJ ####Lauro RODRIGUEZ, [facility] [place] [address] CO2 23 mmol/L Normal 22-30 [facility] Comment on above: Performed By: #### C TIENDFJ ####Lauro RODRIGUEZ, [facility] [place] [address] Creatinine 0.74 mg/dL Normal 0.50-1.20 [facility] Comment on above: Performed By: #### C CAITYJ ####Lauro RODRIGUEZ, [facility] [place] [address] eGFR (non-black) mL/min/{1.73_m2} Normal >60 [facility] Comment on above: Performed By: #### C BCROSALVAJ ####Lauro RODRIGUEZ, [facility] [place], [place] [address] Glucose mass conc 88 mg/dL Normal 70-99 [facility] Comment on above: Performed By: #### C CAITYJ ####Lauro RODRIGUEZ, [facility] [place] [address] Osmolality 289 mOsm/kg Normal 278-305 [facility] Comment on above: Performed By: #### C BCROSALVAJ ####Lauro RODRIGUEZ, [facility] [place] [address] Potassium molar conc 3.5 mmol/L Normal 3.5-5.0 [facility] Comment on above: Performed By: #### C BCDFJ ####Lauro RODRIGUEZ, [facility] [place], [place] [address] Sodium 139 mmol/L Normal 133-143 [facility] Comment on above: Performed By: #### C BCDFJ ####Lauro RODRIGUEZ, [facility], [place] [address] Urea nitrogen 13 mg/dL Normal 7-22 [facility] Comment on above: Performed By: #### C CAITYJ ####Lauro RODRIGUEZ, [facility] [place] [address] Calcium - CHRIon 03-25-2017 Calcium 9.5 mg/dL Normal 8.6-10.5 [facility] Comment on above: Performed By: #### C CAITYJ ####Lauro RODRIGUEZ, [facility] [place] [address] Inorg Phosphate - CHRIon Inorg Phosphate 2.9 mg/dL Normal 2.2-4.6 [facility] Comment on above: Performed By: #### C CAITYJ ####Lauro RODRIGUEZ, [facility] [place] [address] Magnesium - [facility] CENTERIon 8 Magnesium 2.0 mg/dL Normal 1.6-2.6 [facility] Comment on above: Performed By: #### C CAITYJ ####Lauro RODRIGUEZ, [facility] [place] [address] CBC with Diffon 02-14-2017 Erythrocyte distribution width Auto Ratio (RBC) 12.8 % Normal 11.7-15.0 [facility] Comment on above: Performed By: #### C BCGary ####[facility] [address] Erythrocytes (RBC) 4.61 M/UL Normal 4.0-4.9 [facility] Comment on above: Performed By: #### C BCD ####[address] [address] Hematocrit (HCT) 41.6 % Normal 36-44 [facility] Comment on above: Performed By: #### C BCD ####[address] [address] Hemoglobin mass conc (Bld) 13.2 g/dL Normal 12.0-15.0 [facility] Comment on above: Performed By: #### C TIEND ####[place] [address] [address] [facility] [place] [address] MCH 28.6 pg Normal 26-34 [facility] Comment on above: Performed By: #### C BCD ####[facility] LaboratoryOkke [place] [address] [place] [address] MCHC mass conc (RBC) 31.7 % Normal 31-37 [facility] Comment on above: Performed By: #### C BCD ####[place] [address] [address]Willor[facility] [place] [address] MCV 90.2 fL Normal 80-100 [facility] Comment on above: Performed By: #### C BCD ####[place] [address] [address]Will[address] [place] [address] RDW-SD 41.7 FL Normal 37.0-54.0 [facility] Comment on above: Performed By: #### C BCD ####[place] [address] [address] [facility] [place] [address] AB IMMATURE NEUT 0.02 K/UL Normal 0.0-0.1 [facility] Comment on above: Performed By: #### C BCD ####[place] [address] [address] [facility] [facility] [address] ABS BASO 0.06 K/UL Normal 0.00-0.22 [facility] Comment on above: Performed By: #### C BCD ####[facility] LaboratoryHeather [place] [address] [address] [facility]St[address] [facility] [address] ABS EOS 0.21 K/UL Normal 0-0.45 [facility] Comment on above: Performed By: #### C BCD ####[place] [address] [address] [facility] [facility] [address] ABS.NEUT.CALCULATED Normal [facility] Comment on above: Result Comment: NOT MEASUREDPerformed at [facility],[address] [place] [address] Performed By: #### C BCD ####[place] [address] [address] [facility] [facility] [address] Basophils/100 WBC Auto (Bld) 0.70 % Normal 0-1 [facility] Comment on above: Performed By: #### C BCD ####[facility] LaboratoryLake Ghhy[address] [place] [address] DIFF TYPE AUTO DIFF Normal [facility] Comment on above: Performed By: #### C BCD ####[facility] LaboratoryLake Ccaf[address] [place] [address] Eosinophils/100 leukocytes 2.50 % Normal 0-3 [facility] Comment on above: Performed By: #### C BCD ####[facility] LaboratoryLake Wsbm[address] [place] [address] IMMATURE NEUT % 0.20 % Normal 0.0-1.0 [facility] Comment on above: Performed By: #### C BCD ####[facility] LaboratoryOkke Ptje[address] [place] [address] Lymphocytes 2.64 10*3/uL Normal 1.2-3.2 [facility] Comment on above: Performed By: #### C BCD ####[facility] LaboratoryLake Rokg[address]574 [place] [address] Lymphocytes/100 leukocytes 30.90 % Normal 20-40 [facility] Comment on above: Performed By: #### C BCD ####[facility] LaboratoryLake Vyeq[address] [place] [address] MEAN PLT VOL 10.5 CU Normal 7.0-12.6 [facility] Comment on above: Performed By: #### C BCD ####[facility] LaboratoryLake Oxuj[address] [place] [address] Monocytes 0.52 10*3/uL Normal 0-0.8 [facility] Comment on above: Performed By: #### C BCD ####[facility] LaboratoryLake Teda[address] [place] [address] Monocytes/100 leukocytes 6.10 % Normal 0-8 [facility] Comment on above: Performed By: #### C BCD ####[facility] LaboratoryLake Ueic[address] [place] [address] Neutrophils 5.09 10*3/uL Normal 1.8-7.7 [facility] Comment on above: Performed By: #### C BCD ####[facility] LaboratoryLake Jnfz[address] [place] [address] Neutrophils/100 leukocytes 59.60 % Normal 50-70 [facility] Comment on above: Performed By: #### C BCD ####[facility] LaboratoryLake Xnou[address] [place] [address] Platelets 348 10*3/uL Normal 150-450 [facility] Comment on above: Performed By: #### C BCD ####[facility] LaboratoryLake Oqke[address] [place] [address] WBC (Leukocytes) 8.5 10*3/uL Normal 4.5-11.0 [facility] Comment on above: Performed By: #### C BCD ####[facility] LaboratoryLake Zizw[address] [place] [address] COMPREHENSIVE METABOLIC PANE [facility] 02-14-2017 Alanine aminotransferase (ALT) 22 U/L Normal 5-40 [facility] Comment on above: Performed By: #### C PANEL LAMINATOR ####[facility] LaboratoryLake Jxcg[address] [place] [address] Albumin 4.8 g/dL Normal 3.5-5.0 [facility] Comment on above: Performed By: #### C PANEL LAMINATOR ####[facility] LaboratoryLake Tdsn[address]374 [place] [address] Albumin/Globulin Ratio 1.8 {ratio} Normal 1.5-3.0 [facility] Comment on above: Performed By: #### C PANEL LAMINATOR ####[facility] LaboratoryLake Hnqd[address] [place] [address] Alkaline phosphatase (ALP) 53 U/L Normal 35-125 [facility] Comment on above: Performed By: #### C PANEL LAMINATOR ####[facility] LaboratoryLake Kuxr[address]253 [place] [address] Anion gap 14 mmol/L Normal 0-19 [facility] Comment on above: Performed By: #### C PANEL LAMINATOR ####[facility] LaboratoryLake Orbk[address]59 [place] [address] Aspartate aminotransferase (AST) 16 U/L Normal 5-40 [facility] Comment on above: Performed By: #### C PANEL LAMINATOR ####[facility] LaboratoryLake Dpmg[address]113 [address] AveWilloriver [facility] [place] [place] [address] Bilirubin (total) 0.3 mg/dL Normal 0.1-1.2 [facility] Comment on above: Performed By: #### C PANEL LAMINATOR ####[facility] LaboratoryOkke Xwli[address] [place] [address] BUN/Creatinine Ratio 13.8 RATIO Normal 8-21 [facility] Comment on above: Performed By: #### C PANEL LAMINATOR ####[facility] LaboratoryOkke [place] [address] [place] [address] Calcium 9.5 mg/dL Normal 8.5-10.4 [facility] Comment on above: Performed By: #### C PANEL LAMINATOR ####[facility] LaboratoryKelly [place] [id number] [place] [address] Chloride 101 mmol/L Normal 97-107 [facility] Comment on above: Performed By: #### C PANEL LAMINATOR ####[facility] LaboratoryHeather [place] [address] [address] [facility] [place] [address] CO2 24 mmol/L Normal 24-31 [facility] Comment on above: Performed By: #### C PANEL LAMINATOR ####[facility] LaboratoryHeather [place] [address] [address] [place] [address] Creatinine 0.8 mg/dL Normal 0.4-1.6 [facility] Comment on above: Performed By: #### C PANEL LAMINATOR ####[place] [address] [address]Willoriver [facility] [place] [address] eGFR (MDRD) Normal [facility] Comment on above: Result Comment: 96GF R ml/min/1.73m2 Stage -----90 160-89 230-59 315-29 4<15 5For -Americans, multiply EGFR result by 1.210Calculation not validated for patients under 18 years of age.Performed at [facility],[address] [place] [address] Performed By: #### C PANEL LAMINATOR ####[facility] LaboratoryOkke Jtte[address] AveWilloriver woods [facility]– [place] [address] Globulin 2.7 g/dL Normal 1.9-3.7 [facility] Comment on above: Performed By: #### C PANEL LAMINATOR ####[address] [place] [address] Glucose mass conc 82 mg/dL Normal 65-99 [facility] Comment on above: Performed By: #### C PANEL LAMINATOR ####[place] [address] [place] [address] Potassium molar conc 4.7 mmol/L Normal 3.4-5.1 [facility] Comment on above: Performed By: #### C PANEL LAMINATOR ####[address] [place] [address] Protein 7.5 g/dL Normal 5.9-7.9 [facility] Comment on above: Performed By: #### C PANEL LAMINATOR ####[address] [place] [address] Sodium 139 mmol/L Normal 133-145 [facility] Comment on above: Performed By: #### C PANEL LAMINATOR ####[address] [place] [address] Urea nitrogen 11 mg/dL Normal 8-25 [facility] Comment on above: Performed By: #### C PANEL LAMINATOR ####[address] [address] TSHon 02-14-2017 Thyroid stimulating hormone (TSH) Normal 0.27-4.20 [facility] Comment on above: Result Comment: 1.91 THIS TSH ASSAY HAS A FUNCTIONAL SENSITIVITY OF 0.01 MIU/L. THIS MEETSREQUIREMENTS OF A 3RD GENERATION HIGH SENSITIVE TSH ASSAY.Performed at [facility],[address] [place] [address] Performed By: #### T SHR ####[address] [address] GC/CHLAMYDIA BY AMPon 2016 GC/CHLAMYDIA BY AMP CERVIXNegative for Chlamydia Trachomatis DNA by AmplificationA negative result does not preclude the presence of CT and/or NGinfection because results depend on adequate specimen collection,absence of inhibitors, and sufficient DNA to be detected.Negative for Neisseria Gonorrhoeae DNA by AmplificationThe Liudmila CT/NG test is a FDA cleared diagnostic test for thequalitive detection of DNA of GC/Chlamydia. The sample type, Surepathliquid pap has been validated inhouse and performance characteristicsshow the assay can detect GC/Chlamydia from this source. [employer] is authorized under CLIA to perform high complexitytesting.Per formed at Artem[facility] Chao, [address] [place] [address], [address] Comment on above: Performed By: #### G PGCCT ####Artemio Romero[address] [place] [address], [address] [place] [address] Liquid PAPon 02-06-2017 Liquid PAP Patient Name: KARLA TUTTLE [facility]. Rec. #: [id number] CYTOLOGIC DIAGNOSISSPECIMEN ADEQUACY:Satisfactory for evaluation.Endocervic al transformation zone component present.Partial obscuring by inflammation present.GENERAL CATEGORIZATION:Negati ve for intraepithelial lesion or malignancy.See interpretation-result .INTERPRETATION/RESUL T:Negative for intraepithelial lesion or malignancy.The above diagnosis was rendered at [employer], [address] [place] [address], CLIA number [id number].This information is included on the report as part of a CLIArequirement.El ectronically Signed Out By PAULETTE Rogel (ASCP)dap 8Clinical HistoryDate of Last Menstrual Period: 01/05/17Clinical Conditions:Reflex High Risk HPV Testing If ASCUS: If abnormalThe Pap test is only a screening test for cervical cancer. As with allscreening tests, false-negative results can occur, emphasizing the needfor ongoing surveillance and clinical correlation. If there are anyquestions about the results of this screening test, please call thepathology laboratory. [facility] Comment on above: Performed By: #### 8 [facility] ####[place] [address] [place] [address] Vital Signs Date Time Vital Sign Value Performing Clinician Carolina amin 11-29-2024 09:48-0400 Body height 167.64 cm No Primary Care Physician [facility] 11-29-2024 09:48-0400 Body mass index (BMI) [Ratio] 35.4 kg/m2 No Primary Care Physician [facility] 11-29-2024 09:48-0400 Body weight 99.47 kg No Primary Care Physician [facility] 11-29-2024 09:48-0400 Diastolic blood pressure 75 mm[Hg] No Primary Care Physician [facility] 11-29-2024 09:48-0400 Systolic blood pressure 113 mm[Hg] No Primary Care Physician [facility] 11-02-2024 08:11-0400 Body height 167.64 cm No Primary Care Physician [facility] 11-02-2024 08:07-0400 Body mass index (BMI) [Ratio] 35.5 kg/m2 No Primary Care Physician [facility] 11-02-2024 08:07-0400 Body weight 99.79 kg No Primary Care Physician [facility] 11-02-2024 08:07-0400 Diastolic blood pressure 74 mm[Hg] No Primary Care Physician [facility] 11-02-2024 08:07-0400 Systolic blood pressure 119 mm[Hg] No Primary Care Physician [facility] 10-05-2024 09:56-0400 Body weight 100.06 kg No Primary Care Physician [facility] 10-05-2024 09:56-0400 Diastolic blood pressure 76 mm[Hg] No Primary Care Physician [facility] 10-05-2024 09:56-0400 Systolic blood pressure 134 mm[Hg] No Primary Care Physician [facility] 10-05-2024 09:36-0400 Body height 167.64 cm No Primary Care Physician [facility] 09-06-2024 08:29-0400 Body height 167.64 cm No Primary Care Physician [facility] 09-06-2024 08:29-0400 Body mass index (BMI) [Ratio] 35.9 kg/m2 No Primary Care Physician [facility] 09-06-2024 08:29-0400 Body weight 100.81 kg No Primary Care Physician [facility] 09-06-2024 08:29-0400 Diastolic blood pressure 84 mm[Hg] No Primary Care Physician [facility] 09-06-2024 08:29-0400 Systolic blood pressure 139 mm[Hg] No Primary Care Physician [facility] 08-05-2024 10:38-0400 Body height 167.64 cm No Primary Care Physician [facility] 08-05-2024 10:38-0400 Body mass index (BMI) [Ratio] 36.4 kg/m2 No Primary Care Physician [facility] 08-05-2024 10:38-0400 Body weight 102.51 kg No Primary Care Physician [facility] 08-05-2024 10:38-0400 Diastolic blood pressure 73 mm[Hg] No Primary Care Physician [facility] 08-05-2024 10:38-0400 Systolic blood pressure 123 mm[Hg] No Primary Care Physician [facility] 06-24-2023 14:00-0400 Body temperature 98.2 [degF] No Primary Care Physician [facility] 06-24-2023 14:00-0400 Diastolic blood pressure 80 mm[Hg] No Primary Care Physician [facility] 06-24-2023 14:00-0400 Heart rate 88 /min No Primary Care Physician [facility] 06-24-2023 14:00-0400 Respiratory rate 16 /min No Primary Care Physician [facility] 06-24-2023 14:00-0400 SaO2% (BldA) [Mass fraction] 99 % No Primary Care Physician [facility] 06-24-2023 14:00-0400 Systolic blood pressure 130 mm[Hg] No Primary Care Physician [facility] 06-21-2023 05:58-0400 Body height 167.64 cm No Primary Care Physician [facility] 06-21-2023 05:58-0400 Body mass index (BMI) [Ratio] 37.5 kg/m2 No Primary Care Physician [facility] 06-21-2023 05:58-0400 Body weight 105.68 kg No Primary Care Physician [facility] 06-20-2023 22:01-0400 Diastolic blood pressure 81 mm[Hg] No Primary Care Physician [facility] 06-20-2023 22:01-0400 Heart rate 107 /min No Primary Care Physician [facility] 06-20-2023 22:01-0400 Systolic blood pressure 134 mm[Hg] No Primary Care Physician [facility] 06-20-2023 21:51-0400 Body height 167.64 cm No Primary Care Physician [facility] 06-20-2023 21:51-0400 Body mass index (BMI) [Ratio] 37.5 kg/m2 No Primary Care Physician [facility] 06-20-2023 21:51-0400 Body weight 105.4 kg No Primary Care Physician [facility] 06-19-2023 16:25-0400 Body temperature 97.6 [degF] No Primary Care Physician [facility] 06-19-2023 16:24-0400 Diastolic blood pressure 74 mm[Hg] No Primary Care Physician [facility] 06-19-2023 16:24-0400 Heart rate 86 /min No Primary Care Physician [facility] 06-19-2023 16:24-0400 Systolic blood pressure 131 mm[Hg] No Primary Care Physician [facility] 06-19-2023 16:12-0400 Body height 167.64 cm No Primary Care Physician [facility] 06-19-2023 16:12-0400 Body mass index (BMI) [Ratio] 37.9 kg/m2 No Primary Care Physician [facility] 06-19-2023 16:12-0400 Body weight 106.59 kg No Primary Care Physician [facility] 06-16-2023 08:18-0400 Body mass index (BMI) [Ratio] 37.4 kg/m2 No Primary Care Physician [facility] 06-16-2023 08:18-0400 Body weight 105.23 kg No Primary Care Physician [facility] 06-16-2023 08:18-0400 Diastolic blood pressure 82 mm[Hg] No Primary Care Physician [facility] 06-16-2023 08:18-0400 Systolic blood pressure 129 mm[Hg] No Primary Care Physician [facility] 06-10-2023 08:06-0400 Body mass index (BMI) [Ratio] 37.5 kg/m2 No Primary Care Physician [facility] 06-10-2023 08:06-0400 Body weight 105.68 kg No Primary Care Physician [facility] 06-10-2023 08:06-0400 Diastolic blood pressure 85 mm[Hg] No Primary Care Physician [facility] 06-10-2023 08:06-0400 Systolic blood pressure 131 mm[Hg] No Primary Care Physician [facility] 06-03-2023 08:19-0400 Body mass index (BMI) [Ratio] 37.3 kg/m2 No Primary Care Physician [facility] 06-03-2023 08:19-0400 Body weight 104.94 kg No Primary Care Physician [facility] 06-03-2023 08:19-0400 Diastolic blood pressure 79 mm[Hg] No Primary Care Physician [facility] 06-03-2023 08:19-0400 Systolic blood pressure 131 mm[Hg] No Primary Care Physician [facility] 05-28-2023 16:10-0400 Body height 167.64 cm No Primary Care Physician [facility] 05-28-2023 16:10-0400 Body mass index (BMI) [Ratio] 37.5 kg/m2 No Primary Care Physician [facility] 05-28-2023 16:10-0400 Body weight 105.4 kg No Primary Care Physician [facility] 05-28-2023 16:10-0400 Diastolic blood pressure 81 mm[Hg] No Primary Care Physician [facility] 05-28-2023 16:10-0400 Systolic blood pressure 128 mm[Hg] No Primary Care Physician [facility] 05-13-2023 08:06-0400 Body height 167.64 cm No Primary Care Physician [facility] 05-13-2023 08:06-0400 Body mass index (BMI) [Ratio] 37.1 kg/m2 No Primary Care Physician [facility] 05-13-2023 08:06-0400 Body weight 104.32 kg No Primary Care Physician [facility] 05-13-2023 08:06-0400 Diastolic blood pressure 80 mm[Hg] No Primary Care Physician [facility] 05-13-2023 08:06-0400 Systolic blood pressure 124 mm[Hg] No Primary Care Physician [facility] 04-28-2023 08:23-0400 Body mass index (BMI) [Ratio] 36.6 kg/m2 No Primary Care Physician [facility] 04-28-2023 08:23-0400 Body weight 103.07 kg No Primary Care Physician [facility] 04-28-2023 08:23-0400 Diastolic blood pressure 83 mm[Hg] No Primary Care Physician [facility] 04-28-2023 08:23-0400 Systolic blood pressure 129 mm[Hg] No Primary Care Physician [facility] 04-16-2023 15:38-0500 Body mass index (BMI) [Ratio] 37 kg/m2 No Primary Care Physician [facility] 04-16-2023 15:38-0500 Body weight 104.09 kg No Primary Care Physician [facility] 04-16-2023 15:38-0500 Diastolic blood pressure 80 mm[Hg] No Primary Care Physician [facility] 04-16-2023 15:38-0500 Systolic blood pressure 126 mm[Hg] No Primary Care Physician [facility] 03-27-2023 08:02-0500 Body height 167.64 cm No Primary Care Physician [facility] 03-27-2023 08:02-0500 Body mass index (BMI) [Ratio] 36.6 kg/m2 No Primary Care Physician [facility] 03-27-2023 08:02-0500 Body weight 102.96 kg No Primary Care Physician [facility] 03-27-2023 08:02-0500 Diastolic blood pressure 74 mm[Hg] No Primary Care Physician [facility] 03-27-2023 08:02-0500 Systolic blood pressure 118 mm[Hg] No Primary Care Physician [facility] 02-27-2023 08:09-0500 Body mass index (BMI) [Ratio] 36.3 kg/m2 No Primary Care Physician [facility] 02-27-2023 08:09-0500 Body weight 102.22 kg No Primary Care Physician [facility] 02-27-2023 08:09-0500 Diastolic blood pressure 82 mm[Hg] No Primary Care Physician [facility] 02-27-2023 08:09-0500 Systolic blood pressure 134 mm[Hg] No Primary Care Physician [facility] 01-30-2023 11:58-0500 Body mass index (BMI) [Ratio] 36.2 kg/m2 No Primary Care Physician [facility] 01-30-2023 11:58-0500 Body weight 101.77 kg No Primary Care Physician [facility] 01-30-2023 11:58-0500 Diastolic blood pressure 84 mm[Hg] No Primary Care Physician [facility] 01-30-2023 11:58-0500 Systolic blood pressure 134 mm[Hg] No Primary Care Physician [facility] 12-27-2022 14:39-0500 Body mass index (BMI) [Ratio] 36.5 kg/m2 No Primary Care Physician [facility] 12-27-2022 14:39-0500 Body weight 102.56 kg No Primary Care Physician [facility] 12-27-2022 14:39-0500 Diastolic blood pressure 86 mm[Hg] No Primary Care Physician [facility] 12-27-2022 14:39-0500 Systolic blood pressure 135 mm[Hg] No Primary Care Physician [facility] Encounters Encounter Date Encounter Type Care Provider Facility Start: 11-29-2024 End: 11-29-2024 Patient encounter procedure Kavitha MATHEWS -[facility] Work Phone: Start: 11-29-2024 End: 11-29-2024 ambulatory No Primary Care Physician Facility:[facility] Start: 11-16-2024 End: 11-16-2024 ambulatory MD NO PRIMARY CARE [facility] Start: 11-02-2024 End: 11-02-2024 Patient encounter procedure Liane LOPEZ -[facility] Work Phone: Start: 11-02-2024 End: 11-02-2024 ambulatory No Primary Care Physician [facility] Start: 11-01-2024 End: 11-01-2024 ambulatory NO PRIMARY CARE [facility] Start: 10-05-2024 End: 10-05-[address] Latoya Marquez DO -[facility] Work Phone: Start: 10-05-2024 End: 10-05-2024 ambulatory No Primary Care Physician -[facility] Start: 09-06-2024 End: 09-06-[address] Mickie Murray MD -[facility] Work Phone: Start: 09-06-2024 End: 09-06-2024 ambulatory No Primary Care Physician -[facility] Start: 09-06-2024 End: 09-06-2024 ambulatory No Primary Care Physician Facility:[facility] Start: 08-05-2024 End: 08-05-2024 ambulatory No Primary Care Physician [facility] Work Phone: Start: 08-05-2024 End: 08-05-2024 Patient encounter procedure Kavitha Boyer CNM -[facility] Work Phone: Start: 08-05-2024 End: 08-05-2024 Patient encounter procedure Kavitha Boyer CNM -[facility] Work Phone: Start: 08-05-2024 End: 08-05-2024 ambulatory No Primary Care Physician [facility] Work Phone: Start: 08-05-2024 End: 08-05-2024 ambulatory Kavitha Merlin Facility:[facility] Start: 06-24-2023 Non-patient / Non-visit No Julia Casanova Physician [facility] Start: 06-23-2023 Non-patient / Non-visit No Julia rodriguez [facility] Physician [facility] Start: 06-22-2023 Non-patient / Non-visit No Julia Casanova Physician [facility] Start: 06-21-2023 End: 06-24-2023 Evaluation and management of inpatient No [facility] Work [facility]: Start: 06-21-2023 Non-patient / Non-visit No Julia Casanova Physician [facility] Start: 06-20-2023 End: 06-20-2023 ambulatory No Primary Care Physician [facility] Work Phone: Start: 06-20-2023 End: 06-20-2023 Patient encounter procedure No Primary Care Physician [facility] Work Phone: Start: 06-19-2023 Non-patient / Non-visit No Julia Casanova Physician [facility] Start: 06-19-2023 End: 06-19-2023 ambulatory No Primary Care Physician [facility] Work Phone: Start: 06-19-2023 End: 06-19-2023 Patient encounter procedure No Primary Care Physician [facility] Work Phone: Start: 06-16-2023 End: 06-16-2023 Patient encounter procedure No Primary Care Physician [facility] Work Phone: Start: 06-10-2023 End: 06-10-2023 Patient encounter procedure No Primary Care Physician [facility] Work Phone: Start: 06-03-2023 End: 06-03-2023 Patient encounter procedure No Primary Care Physician [facility] Work Phone: Start: 05-28-2023 End: 05-28-2023 ambulatory No Primary Care Physician [facility] Work Phone: Start: 05-28-2023 End: 05-28-2023 Patient encounter procedure No Primary Care Physician [facility] Spec[facility] Work Phone: Start: 05-28-2023 End: 05-28-2023 Patient encounter procedure No Primary Care Physician [facility] Work Phone: Start: 05-13-2023 End: 05-13-2023 ambulatory No Primary Care Physician [facility] Work Phone: Start: 05-13-2023 End: 05-13-2023 Patient encounter procedure No Primary Care Physician [facility] Work Phone: Start: 04-28-2023 End: 04-28-2023 Patient encounter procedure No Primary Care Physician [facility] Work Phone: Start: 04-16-2023 End: 04-16-2023 Patient encounter procedure No Primary Care Physician [facility] Work Phone: Start: 03-27-2023 End: 03-27-2023 ambulatory No Primary Care Physician [facility] Work Phone: Start: 03-27-2023 End: 03-27-2023 Patient encounter procedure No Primary Care Physician [facility] Work Phone: Start: 03-05-2023 End: 03-05-2023 Subsequent hospital visit by physician Xiao Horowitz MD Work Phone: [facility] Comment on above: Screening, , for malformation by ultrasound Start: 02-27-2023 End: 02-27-2023 Patient encounter procedure No Primary Care Physician [facility] Work Phone: Start: 01-30-2023 End: 01-30-2023 Patient encounter procedure No Primary Care Physician [facility] Work Phone: Start: 12-27-2022 End: 12-27-2022 Patient encounter procedure No Primary Care Physician [facility] Work Phone: Start: 12-12-2022 End: 12-12-2022 Patient encounter procedure No Primary Care Physician [facility] Start: 05-30-2021 End: 05-30-2021 ambulatory Yareli Lemus MD Work Phone: Neurology Comment on above: Procedure test results Start: 05-30-2021 E-mail encounter fro m caregiver Yareli Lemus MD Work Phone: [facility] Start: 05-30-2021 End: 05-30-2021 Patient encounter procedure [facility] Work Phone: [facility] Start: 05-28-2021 End: 05-28-2021 ambulatory [facility] Comment on above: Procedure Start: 05-28-2021 End: 05-28-2021 Patient encounter procedure Autonomic 2 Ne[address] Main [facility] Start: 04-29-2017 Ambulatory LAINEY Myers ity:[facility] Jared Emery Start: 03-24-2017 End: 03-25-2017 Emergency department patient visit EV SIDDIQUI [facility] Start: 02-14-2017 Ambulatory RACHEL VALENCIA Facdiego lity:UNKNOWN Start: 02-06-2017 Ambulatory GABRIELLA DUARTE [facility] Procedures Date Procedure Procedure Detail Performing Clinician Start: 09-06-2024 Hepatitis C antibody measurement No Primary Care Physician Comment on above: Reactive: Presumptiv e evidence of antibodies to HCV. Follow CDC recommendations for supplemental testing.Non-Reactive: Antibodies to HCV were not detected; does not exclude the possibility of exposure to HCVReactive Results are presumptive evidence of antibodies to HCV. Follow CDC recommendations for supplemental testing.Order confirmation testing: HCV Quant by PCR testing - HCVPCR #[id number] Non Reactive: < 0.8 Equivocal: >/= 0.8 to < 1.0 Reactive: >/= 1.0The CDC requires that a reactive/equivocal HCV antibody result be sent out for confirmation. HCV Quant by PCR testing. Start: 09-06-2024 Rubella IgG measurement No Primary Care Physician Comment on above: Antibody Result: Int erpretationNon-Reactive: Non- ImmuneReactive: ImmuneThe following results were obtained with the [employer] Rubella IgG assay. Results from assays of other manufacturers cannot be used interchangeably. Start: 09-06-2024 Serologic test for syphilis No Primary Care Physician Start: 08-05-2024 Urine culture No Primar y Care Physician Start: 05-28-2023 Group B Streptococcu s Culture No Primary Care Physician Start: 04-11-2021 Adult depression scr eening assessment [facility] H/O: section Previous c esarean section No Primary Care Physician Comment on above: desires repeat H/O: section Previous c esarean section Kavitha Boyer CNM H/O: section Previous c esarean section Dr. Mickie Murray MD H/O: section Previous c esarean section Dr. Latoya aMrquez DO H/O: section Previous c esarean section Liane Archer [facility] [employer] H/O: section Previous c esarean section Kavitha Boyer CNM Plan of Treatment Date Care Activity Detail Author Start: 11-29-2024 Measurement of glucose 2 hours after glucose challenge for glucose tolerance test [facility] Start: 11-29-2024 Serologic test for syphilis [facility] Start: 11-29-2024 [facility] Start: 11-02-2024 CBC W Auto Differential panel - Blood [facility] Start: 11-02-2024 Comprehensive metabolic 2000 panel - Serum or Plasma [facility] Start: 11-02-2024 Protein/Creatinine [Ratio] in Urine [facility] Start: 09-06-2024 CBC W Auto Differential panel - Blood [facility] Start: 09-06-2024 Hemoglobin A1c/Hemoglobin.total in Blood [facility] Start: 09-06-2024 Hepatitis C antibody measurement [facility] Start: 09-06-2024 Rubella IgG measurement [facility] Start: 09-06-2024 Serologic test for syphilis [facility] Start: 09-06-2024 [facility] Start: 06-24-2023 Patient discharge [facility] Start: 06-22-2023 Application of abdominal corset [facility] Start: 06-22-2023 [facility] Start: 06-22-2023 Administration of blood product [facility] Start: 06-22-2023 Administration of blood product [facility] Start: 06-22-2023 Transfusion of blood product [facility] Start: 06-22-2023 Transfusion of red blood cells [facility] Start: 06-21-2023 Administration of medication [facility] Start: 06-21-2023 Ambulation therapy management [facility] Start: 06-21-2023 Application of device [facility] Start: 06-21-2023 End: 06-21-2023 Application of intermittent pneumatic compression device [facility] Start: 06-21-2023 Assessment of risk of venous thromboembolism [facility] Start: 06-21-2023 Catheterization of vein [facility] Start: 06-21-2023 Deep breathing and coughing exercises [facility] Start: 06-21-2023 Exercises [facility] Start: 06-21-2023 Measuring intake and output [facility] Start: 06-21-2023 Notification of physician [facility] Start: 06-21-2023 Procedure discontinued [facility] Start: 06-21-2023 Provision of activity privileges [facility] Start: 06-21-2023 Skin care [facility] Start: 06-21-2023 Vital signs measurements [facility] Start: 06-21-2023 Wound care [facility] Start: 06-21-2023 Application of abdominal corset [facility] Start: 06-21-2023 End: 06-21-2023 [facility] Start: 06-21-2023 Admission procedure [facility] Start: 06-20-2023 Nonstress test [facility] Start: 06-20-2023 Obstetric monitoring [facility] Start: 06-20-2023 Vital signs measurements [facility] Start: 06-20-2023 End: 06-21-2023 [facility] Start: 06-20-2023 Patient discharge [facility] Start: 06-19-2023 Nonstress test [facility] Start: 06-19-2023 Obstetric monitoring [facility] Start: 06-19-2023 Vital signs measurements [facility] Start: 06-19-2023 [facility] Start: 2022 FLU (#1) FLU (#1) [facility] Start: 04-11-2022 Adult depression screening assessment DEPRESSION SCREENING [facility] Start: 2021 Influenza vaccination INFLUENZA (Season Ended) [facility] Start: 10-17-2016 Microscopic observation [Identifier] in Cervix by Cyto stain Pap Smear [facility] Start: 10-17-2016 PAP TESTING PAP TESTING [facility] Start: 10-17-2014 Urine microalbumin profile DTAP,TDAP,TD (1 - Tdap) [facility] Start: 2011 MenB (1 of 2 - MenB 2-Dose Series Bexsero) MenB (1 of 2 - MenB 2-Dose Series Bexsero) [facility] Start: 10-17-2009 PEDS TO ADULT TRANSITION ANNUAL ASSESSMENT PEDS TO ADULT TRANSITION ANNUAL ASSESSMENT [facility] Start: 2007 PEDS TO ADULT TRANSITION INITIAL DISCUSSION PEDS TO ADULT TRANSITION INITIAL DISCUSSION [facility] Start: 10-17-2006 HPV VACCINE (1 - 2-dose series) HPV VACCINE (1 - 2-dose series) [facility] Start: 10-17-2002 Tetanus Diphtheria and Pertussis Vaccines (1 - Tdap) Tetanus Diphtheria and Pertussis Vaccines (1 - Tdap) [facility] Start: 10-17-2000 COVID-19 VACCINE (1) COVID-19 VACCINE (1) [facility] Start: 10-17-1996 MMR (1 of 1 - Standard series) MMR (1 of 1 - Standard series) [facility] Start: 10-17-1996 Varicella (1 of 2 - 2-dose childhood series) Varicella (1 of 2 - 2-dose childhood series) [facility] Start: 04-16-1996 COVID-19 (#1) COVID-19 (#1) [facility] Start: 1995 Hepatitis B (1 of 3 - 3-dose series) Hepatitis B (1 of 3 - 3-dose series) [facility] Alanine aminotransfe rase [Enzymatic activity/volume] in Serum or Plasma [facility] Albumin [Mass/volume ] in Serum or Plasma [facility] Alkaline phosphatase [Enzymatic activity/volume] in Serum or Plasma [facility] Anion gap in Serum o r Plasma [facility] Bilirubin, total measurement [facility] BUN/Creatinine ratio [facility] Calcium [Mass/volume ] in Serum or Plasma [facility] Carbon dioxide, tota l [Moles/volume] in Central venous blood [facility] CBC W Auto Different ial panel - Blood [facility] CBC W Auto Different ial panel - Blood [facility] Chlamydia deoxyribon ucleic acid detection [facility] CMV IgG Ab CMV IgG Ab Lab R outine Screening, , for malformation by ultrasound 03/05/2023 4:05 PM EST [facility] CMV IgM Ab CMV IgM Ab Lab R outine Screening, , for malformation by ultrasound 03/05/2023 4:05 PM EST [facility] Creatinine [Mass/vol ume] in Serum or Plasma [facility] Creatinine [Mass/vol ume] in Urine collected for unspecified duration [facility] Erythrocyte mean corpuscular volume determination [facility] Erythrocyte mean corpuscular volume determination [facility] Glucose [Mass/volume ] in Serum or Plasma [facility] Hematocrit [Volume Fraction] of Blood [facility] Hematocrit [Volume Fraction] of Blood [facility] Hemoglobin [Mass/vol ume] in Blood [facility] Hemoglobin [Mass/vol ume] in Blood [facility] Hemoglobin A1c/Hemoglobin.total in Blood [facility] Hepatitis B virus chicas rface Ag [Presence] in Serum [facility] Hepatitis C antibody measurement [facility] Leukocytes [#/volume ] in Blood [facility] Leukocytes [#/volume ] in Blood [facility] Mean corpuscular hem oglobin concentration determination [facility] Mean corpuscular hem oglobin concentration determination [facility] Mean corpuscular hem oglobin determination [facility] Mean corpuscular hem oglobin determination [facility] Measurement of renal function [facility] Neutrophil count [facility] Neutrophil count [facility] Neutrophil percent differential count [facility] Neutrophil percent differential count [facility] Patient Education [facility] Work Phone: Patient referral [facility] Work Phone: Platelets [#/volume] in Blood [facility] Platelets [#/volume] in Blood [facility] Potassium measurement [facility] Protein [Mass/volume ] in Urine [facility] Protein/Creatinine [ Mass Ratio] in Urine [facility] Red blood cell count [facility] Red blood cell count [facility] Red cell distributio n width determination [facility] Red cell distributio n width determination [facility] Rubella IgG measurement [facility] Serologic test for syphilis [facility] Serum chloride measurement [facility] Sodium measurement [facility] Total protein measurement [place] Toxoplasma IgM Ab Toxoplasma IgM Ab Lab Routine Screening, , for malformation by ultrasound 03/05/2023 4:05 PM EST [facility] Work Phone: Urea nitrogen [Mass/ volume] in Serum or Plasma [facility] Immunizations Immunization Date Immunization Notes Care Provider Fa cility 05-13-2023 tetanus toxoid, redu gail diphtheria toxoid, and acellular pertussis vaccine, adsorbed No Primary Care Physician [facility] Payers Date Payer Category Payer Self-pay [id number] 2024 Unknown [id number] 2022 Unknown [employer] [id number] 2022-Present [address] [place] [address] [id number] 2020 Unknown [employer] PPO [id number] 2020-Present [phone] [address] [place] [address] PPO [id number] 2017 Private Health Insurance [id number] 1995 Unknown [id number] 1995 Unknown [id number] Private Health Insurance [id number] Private Health Insurance [id number] Unknown [id number] 462 Unknown [id number] 462 Unknown [id number] 462 Unknown [id number] 462 Unknown [id number] 462 Unknown [id number] 462 Unknown [id number]. 462 Unknown [id number] 462 Social History Date Type Detail Facility Start: 01-21-2017 End: 08-05-2024 Tobacco smoking status NHIS Never smoked tobacco [facility] Start: 01-21-2017 End: 03-05-2023 Tobacco use and exposure Smokeless tobacco non-user [facility] Start: 04-13-2021 Alcohol intake Ex-drinker (finding) [facility] Start: 1995 Sex Assigned At Female C [facility] Start: 04-23-2021 End: 05-03-2021 Exposure to SARS-CoV-2 (event) Not sure [facility] Start: 03-05-2023 Alcohol intake Lifetime non-d kalin (finding) [facility] Start: 03-05-2023 History of Social function [facility] Start: 03-05-2023 Tobacco use panel [facility] Start: 09-29-2022 [facility] Start: 1995 Sex Assigned At Not on file A [facility] Start: 03-27-2023 End: 06-21-2023 Tobacco smoking status NHIS Unknown if ever smoked [facility] Sexual Orientation Heterosexual (finding) [facility] Medical Equipment Procedure Code Equipment Code Equipment Origin al Text Equipment Identifier Dates Blood Sugar Diagnostic (Blood Glucose Test) strip Start: 03-27-2023 [facility] Start: 03-27-2023 Blood Sugar Diagnostic (Blood Glucose Test) strip Start: 03-27-2023 Lancets Start: 03-27-2023 Blood Sugar Diagnostic (Blood Glucose Test) strip Start: 03-27-2023 Lancets Start: 03-27-2023 Blood Sugar Diagnostic (Blood Glucose Test) strip Start: 03-27-2023 Lancets Start: 03-27-2023 Blood Sugar Diagnostic (Blood Glucose Test) strip Start: 03-27-2023 [facility]ets Start: 03-27-2023 Blood Sugar Diagnostic (Blood Glucose Test) strip Start: 03-27-2023 End: 06-21-2023 Lancets Start: 03-27-2023 End: 06-21-2023 Blood Sugar Diagnostic (Blood Glucose Test) strip Start: 03-27-2023 End: 06-21-2023 Lancets misc Start: 03-27-2023 End: 06-21-2023 Blood Sugar Diagnostic (Blood Glucose Test) strip Start: 03-27-2023 End: 06-21-2023 Lancets misc Start: 03-27-2023 End: 06-21-2023 Blood Sugar Diagnostic (Blood Glucose Test) strip Start: 03-27-2023 End: 06-21-2023 Lancets misc Start: 03-27-2023 End: 06-21-2023 Blood Sugar Diagnostic (Blood Glucose Test) strip Start: 03-27-2023 End: 06-21-2023 Lancets misc Start: 03-27-2023 End: 06-21-2023 Blood Sugar Diagnostic (Blood Glucose Test) strip Start: 03-27-2023 End: 06-21-2023 Lancets misc Start: 03-27-2023 End: 06-21-2023 Blood Sugar Diagnostic (Blood Glucose Test) strip Start: 03-27-2023 End: 06-21-2023 [facility]ets misc Start: 03-27-2023 End: 06-21-2023 Blood Sugar Diagnostic (Blood Glucose Test) strip Start: 03-27-2023 End: 06-21-2023 Lancets misc Start: 03-27-2023 End: 06-21-2023 Blood Sugar Diagnostic (Blood Glucose Test) strip Start: 03-27-2023 End: 06-21-2023 [facility]ets misc Start: 03-27-2023 End: 06-21-2023 Goals Date Patient Goal Desired Activity /State Mental Status Date Assessment Result Facility 06-22-2023 Cognitive function Voice/Name [facility] Work Phone: Clinical Notes 11-13-2020 to 11-29-2024 Note Date & Type Note Facility 11-29-2024 Progress note [facility] 11-02-2024 Progress note [facility] 10-05-2024 Progress note [facility] 09-06-2024 Evaluation note Diagnosis Onset Date Resolution H/O hemorrhage, currently acute September 06, 2024 8:24am Obesity affecting acute September 06, 2024 8:24am acute September 06 8:24am Previous section acute September 06, 2024 8:24am Supervision of high-risk acute September 06, 025 8:24am H/O hemorrhage, currently acute October 05 9:11am Obesity affecting acute October 05 9:11am acute October 05, 2 025 9:11am Previous section acute October 05 9:11am Supervision of high-risk acute October 05, 2024 9:11am H/O hemorrhage, currently acute November 02, 2024 8:04am Headache in acute Oct 8:04am Low lying placenta, antepartum acute November 02, 2024 8:04am Obesity affecting acute November 02, 2024 8:04am acute October 8:04am Previous section acute November 02, 2024 8:04am Supervision of high-risk acute November 022024 8:04am H/O hemorrhage, currently acute November 29 9:45am Headache in acute Nov 9:45am Low lying placenta, antepartum acute November 29 9:45am Obesity affecting acute November 29 9:45am acute November 29, 2024 9:45am Previous section acute November 29 9:45am Supervision of high-risk acute November 9:45am [facility] Work Phone: 1(657) 444-152006-19-2025 Evaluation note* Diagnosis Onset Date Resolution Status Admit Date H/O hemorrhage, currently acute August 05 10:36am Obesity affecting acute August 05, 2024 10:36am acute August 05 10:36am Previous section acute August 05, 2024 10:36am Supervision of high-risk acute August 05, 2024 10:36am [facility] Work Phone: 1(418) 993-553706-19-2025 Evaluation note* Diagnosis Onset Date Resolution Status Admit Date H/O hemorrhage, currently acute August 05 10:36am Obesity affecting acute August 05, 2024 10:36am acute August 05 10:36am Previous section acute August 05, 2024 10:36am Supervision of high-risk acute August 05, 2024 10:36am H/O hemorrhage, currently acute September 06 8:24am Obesity affecting acute September 06, 2024 8:24am acute September 06 8:24am Previous section acute September 06, 2024 8:24am Supervision of high-risk acute September 06, 2024 8:24am [facility] Work Phone: 1(195) 734-264306-19-2025 Evaluation note* Diagnosis Onset Date Resolution Status Admit Date H/O hemorrhage, currently acute August 05 10:36am Obesity affecting acute August 05, 2024 10:36am acute August 05 10:36am Previous section acute August 05, 2024 10:36am Supervision of high-risk acute August 05, 2024 10:36am H/O hemorrhage, currently acute September 06 8:24am Obesity affecting acute September 06, 2024 8:24am acute September 06 8:24am Previous section acute September 06, 2024 8:24am Supervision of high-risk acute September 06, 2024 8:24am H/O hemorrhage, currently acute October 05, 2024 9:11am Obesity affecting acute October 05, 2024 9:11am acute October 05, 9:11am Previous section acute October 05, 2024 9:11am Supervision of high-risk acute October 05 9:11am [facility] Work Phone: 1(760) 493-628806-19-2025 Evaluation note* Diagnosis Onset Date Resolution Status Admit Date H/O hemorrhage, currently acute August 05 10:36am Obesity affecting acute August 05, 2024 10:36am acute August 05 10:36am Previous section acute August 05, 2024 10:36am Supervision of high-risk acute August 05, 2024 10:36am H/O hemorrhage, currently acute September 06 8:24am Obesity affecting acute September 06, 2024 8:24am acute September 06 8:24am Previous section acute September 06, 2024 8:24am Supervision of high-risk acute September 06, 2024 8:24am H/O hemorrhage, currently acute October 05, 2024 9:11am Obesity affecting acute October 05, 2024 9:11am acute October 05, 2 025 9:11am Previous section acute October 05, 2024 9:11am Supervision of high-risk acute October 05 9:11am H/O hemorrhage, currently acute October 8:04am Headache in acute Oct 8:04am Low lying placenta, antepartum acute November 02, 2024 8:04am Obesity affecting acute November 02, 2024 8:04am acute October 8:04am Previous section acute November 02, 2024 8:04am Supervision of high-risk acute November 02, 2024 8:04am [facility] [employer] Work Phone: 1(135) 146-214405-07-2024 Discharge summary Author Liane Archer [facility] June 24, 2023 7:48am Note Date/Time June 24, 2023 7:48am [facility] Medical Records Department [address] [place] [address] Discharge Summary 06/24/23 0745 MR#: [id number] Acct: [id number] Name: KARLA TUTTLE Rep #:[id number] : 1995 27 From: Liane Archer NP [facility] PCP: Care Physician,No Primary Status :ADM IN Location: [place] [address] Providers Date of Admission: 06/21/23 Primary Care Physician: No Primary Care Phys Reason For Visit: PRIMARY Diagnosis Discharge Diagnosis (1) delivery delivered: Status: Acute Code(s): O82 - Encounter for delivery without indication (2) Chorioamnionitis, delivered, current hospitalization: Status: Acute Code(s): O41.1290 - Chorioamnionitis, unspecified trimester, not applicable or unspecified (3) hemorrhage: Status: Acute Code(s): O72.1 - Other immediate hemorrhage Qualifiers: hemorrhage type: unspecified Qualified Code(s): O72.1 - Other immediate hemorrhage (4) Anemia in preg-unspec: Status: Acute Code(s): O99.019 - Anemia complicating , unspecified trimester Qualifiers: Trimester: second trimester Qualified Code(s): O99.012 - Anemia complicating , second trimester Plan s/p LTCS PPD # 3 1. routine post care 2. breast feeding- support given 3. rh positive 4. rubella immune 5. home today Medications at Discharge Home Medications multivit-min no.71-iron fum 28 mg-folate no.1 1 mg-dha 300 mg capsule (PNV- [place]) 1 cap PO DAILY 11/26/22 Hospital Course Operations section Summary of Care Provided Hospital Course: Patient underwent section with routine recovery, return of normal bow[place] bladder function. Had chorioamnionitis and treated appropriately without postop fever. Had brief hemorrhage and responded to treatment without need for blood products. Ambulating, voiding and tolerating PO. Stable for discharge home POD #3. Weight / BMI Weight Weight: 233 lb Body Mass Index (BMI) 37.5 ABG / Lab / Microbiology Data 06/22/23 23:45 Laboratory: Laboratory Results - last 24 hr 06/21/23 17:25: Diff Path Review Reviewed D/C Instructions Discharge Diet: No restrictions May resume sexual activity in: 4-6 weeks Weight Bearing Status: Full weight bearing Call your doctor if your incision/area has: Continuous Slow Oozing, Sudden Increased Bleeding, Increased Pain/ Swelling, Increased Redness and Foul Smelling Discharge Call your doctor if you observe: Fever of 101 or Higher and Using more than 1 pad per hour Suture Line Care: Avoid Pulling/Pushing and Avoid Pinching/Bending Cleanse incision/area with: Soap & Water and Keep Dressing Clean & Dry Please Follow Up With: Latoya Marquez DO When: Call [phone] to make an appointment for an incision check in 1-2 weeks. Meaningful Use Info Meaningful Use Meaningful Use Diagnoses (Choose all that apply): None applicable Ischemic Stroke Statin Dosing Therapy Reference: STATIN DOSE THERAPY REFERENCE: * Patients > 75 years receive moderate or high dose statin therapy. * Patients 75 years or YOUNGER should receive HIGH intensity statin dose unless contraindicated. You will be required to document reason for non-treatment if statin daily dose does not meet guidelines. HIGH DOSE STATIN THERAPY DAILY Atorvastatin > than or = to 40 mg Rosuvastatin > than or = to 20 mg Amlodipine + Atorvastatin > than or = to 2.5/40 mg Ezetimibe + Simvastatin 10/80 mg Simvastatin 80mg Discharge Plan Admission Admit Date/Time: 06/21/23 05:26 Attending Provider: Latoya Marquez Primary Care Provider: Care Physician,No Primary Discharge Orders/Prescriptions Prescriptions: No Action PNV-Fraziers Bottom 28-1-300 mg capsule 1 cap PO DAILY Referrals / Follow Up: Care Physician,No Primary [Primary Care Provider] - 06/24/23 0748 <Electronically signed by Liane Archer NP [facility]> Cosigner Signature (if applicable): CC: [facility] Liane Archer; No Primary Care Physician~ Signed [facility] Work Phone: 1(445) 906-379105-07-2024 Progress note Author Liane Archer [facility] June 24, 2023 7:45am Note Date/Time June 24, 2023 7:46am [facility] Medical Records Department [address] [place] [address] Progress Note - OBGYN 06/24/23 0743 MR#: [id number] Acct: [id number] Name: KARLA TUTTLE Rep #:[id number] : 1995 27 From: Liane Archer NP [facility] PCP: Care Physician,No Primary Status :ADM IN Location: [place] [address]1 Subjective Subjective Patient doing well without complaints. Tolerating PO. Ambulating and voiding without difficulty. Feeding well. Denies chest pain, shortness of breath, calf pain/swelling, fevers, chills, lightheadedness. Objective Data Objective Data Vital Signs: Vital Signs Temp Pulse Resp BP Pulse Ox O2 Del Method 97.3 F L 83 16 104/72 98 Room Air 06/24/23 01:35 06/24/23 01:35 06/24/23 01:35 06/24/23 01:35 06/24/23 01:35 06/24/23 01:35 Oxygen Delivery Method Room Air Weight: 233 lb Body Mass Index (BMI) 37.5 Intake & Output: Intake and Output for Last 24 Hours 06/22/23 06/23/23 06/24/23 23:59 23:59 23:59 Intake Total 1458.5 / 1458.5 200 / 200 Output Total 750 / 750 400 / 400 Balance 708.5 / 708.5 -200 / -200 Lab / Micro Data 06/22/23 23:45 Labs: Laboratory Results - last 24 hr 06/21/23 17:25: Diff Path Review Reviewed Physical Exam Const alert and oriented x3 HEENT normocephalic Eyes PERRL Neck full ROM Resp normal respiratory effort GI soft to palpation GI Narrative: FF below U. Dressing dry and intact Palpation: tender other (appropriately) Assessment & Plan (1) delivery delivered: COMMENT: JV CS 40weeks failed vacuum/chorio girl: Paige (2) Chorioamnionitis, delivered, current hospitalization: COMMENT: continue amp/gent/clinda x48 hour . (3) hemorrhage: QUALIFIERS: hemorrhage type: unspecified Qualified Code(s): O72.1 - Other immediate hemorrhage COMMENT: stable. 2u PRBC on hold (4) Anemia in preg-unspec: QUALIFIERS: Trimester: second trimester Qualified Code(s): O99.012 - Anemia complicating , second trimester COMMENT: Add Fe. Recheck CBC w FE studies 4 wk PLAN: Plan s/p LTCS PPD # 3 1. routine post care 2. breast feeding- support given 3. rh positive 4. rubella immune 5. home today 06/24/23 0745 <Electronically signed by Liane Archer NP [facility]> Cosigner Signature (if applicable): CC: ~ Signed [facility] Work Phone: 1(604) 720-571305-06-2024 Progress note Author Kavitha Boyer [facility] June 23, 2023 8:09am Note Date/Time June 23, 2023 8:09am [facility] Medical Records Department [address] [place] [address] Progress Note - OBGYN 06/23/23 0808 MR#: [id number] Acct: [id number] Name: KARLA TUTTLE Rep #:[id number] : 1995 27 From: Kavitha Boyer CNM PCP: Care Physician,No Primary Status :ADM IN Location: [place] [address]1 Subjective Subjective Patient doing well without complaints. Tolerating PO. Ambulating and voiding without difficulty. Feeding well. Denies chest pain, shortness of breath, calf pain/swelling, fevers, chills, lightheadedness. Objective Data Objective Data Vital Signs: Vital Signs Temp Pulse Resp BP Pulse Ox O2 Del Method 97.4 F L 89 16 107/64 96 Room Air 06/23/23 02:00 06/23/23 02:00 06/23/23 02:00 06/23/23 02:00 06/23/23 02:00 06/23/23 02:00 Oxygen Delivery Method Room Air Weight: 233 lb Body Mass Index (BMI) 37.5 Intake & Output: Intake and Output for Last 24 Hours 06/21/23 06/22/23 06/23/23 23:59 23:59 23:59 Intake Total 3399.73 / 3399.73 1458.5 / 1458.5 100 / 100 Output Total 1550 / 1550 750 / 750 400 / 400 Balance 1849.73 / 1849.73 708.5 / 708.5 -300 / -300 Lab / Micro Data Attestation: I reviewed the patient's lab results. 06/22/23 23:45 Labs: Laboratory Results - last 24 hr 06/21/23 05:45: Crossmatch See Detail 06/22/23 23:45: WBC 17.4 H, RBC 3.41 L, Hgb 9.5 L, Hct 30.3 L, MCV 88.9, MCH 27.9, MCHC 31.4 L, RDW Std Deviation 48.6 H, RDW Coeff of Edwin 15.0 H, Plt Count 330, MPV 10.2, Immature Gran % (Auto) 0.900, Neut % (Auto) 77.4 H, Lymph % (Auto) 13.2 L, [place] % (Auto) 6.6, Eos % (Auto) 1.6, Baso % (Auto) 0.3, Absolute Neuts (auto) 13.5 H, Absolute Lymphs (auto) 2.30, Nucleated RBC % 0 ROS Constitutional Constitutional: Reports systems reviewed and no addt'l complaints, except as documented; Denies anorexia or headache(s) Cardiovascular Cardiovascular: Reports systems reviewed and no addt'l complaints, except as documented; Denies dizziness, dyspnea, nausea or tachypnea Respiratory/Chest Respiratory/Chest: Reports systems reviewed and no addt'l complaints, except as documented; Denies cough, dyspnea, shortness of breath at rest or tachypnea Gastrointestinal Gastrointestinal: Reports systems reviewed and no addt'l complaints, except as documented; Denies abdominal pain, constipation or nausea Genitourinary Genitourinary: Reports systems reviewed and no addt'l complaints, except as documented; Denies burning urination, difficulty urinating, dysuria, urinary frequency or urinary incontinence Musculoskeletal Musculoskeletal: Reports systems reviewed and no addt'l complaints, except as documented Integumentary Integumentary: Reports systems reviewed and no addt'l complaints, except as documented Neurologic Neurologic: Reports systems reviewed and no addt'l complaints, except as documented; Denies abnormal speech, dizziness or headache(s) Psychiatric Psychiatric: Reports systems reviewed and no addt'l complaints, except as documented Endocrine Endocrinology: Reports systems reviewed and no addt'l complaints, except as documented Hematologic/Lymphatic Hematologic/Lymphatic: Reports systems reviewed and no addt'l complaints, exceptas documented Physical Exam Const alert, oriented x3 and no apparent distress Neck full ROM Resp normal respiratory effort, normal air movement and no retractions Effort and Inspection: able to speak in complete sentences and symmetric chest movement GI soft to palpation Inspection: incision intact Bladder / Kidney Exam: bladder normal to palpation Uterus Palpation: uterus fundus firm Extremity normal to inspection and full ROM Psych mental status grossly normal, thought process normal and cooperative Assessment & Plan (1) delivery delivered: COMMENT: JV CS 40weeks failed vacuum/chorio girl: Paige PLAN: s/p LTCS PPD # 2 1. routine post care 2. breast feeding- support given 3. rh positive 4. rubella immune (2) hemorrhage: COMMENT: CBC check at 2200 and AM type and screen complete 2u PRBC on hold (3) Spontaneous onset of labor: COMMENT: change in cervical exam,epidural for pain management. (4) Chorioamnionitis, delivered, current hospitalization: COMMENT: continue amp/gent/clinda x48 hour . (5) Maternal fever affecting labor: COMMENT: triple I making good progress with second stage (6) Abnormal glucose complicating childbirth: COMMENT: 1 hr 178: she opted for qid testing and nutrition counseling (7) Anemia in preg-unspec: QUALIFIERS: Trimester: second trimester Qualified Code(s): O99.012 - Anemia complicating , second trimester COMMENT: Add Fe. Recheck CBC w FE studies 4 wk (8) Obesity affecting , antepartum: QUALIFIERS: Obesity type affecting : unspecified obesity Qualified Code(s): O99.210 - Obesity complicating , unspecified trimester (9) Supervision of normal first : QUALIFIERS: Trimester: second trimester Qualified Code(s): Z34.02- Encounter for supervision of normal first , second trimester COMMENT: [id number], FLOR 06/22/23,girl Paige Alberto (10) : QUALIFIERS: Weeks of gestation: 39 weeks Qualified Code(s): Z3A.39 - 39 weeks gestation of COMMENT: Neg GBS. declined genetic & carrier testing Charges/Coding Multi Select Codes Urinary/Genital Urinary/Genital CPT Codes: No Charge 06/23/23 0809 <Electronically signed by Kavitha Boyer CNM> Cosigner Signature (if applicable): CC: ~ Signed [facility] Work Phone: 1(440) 533-597805-05-2024 Progress note Author Trish Beckman [facility] June 22, 2023 10:15am Note Date/Time June 22, 2023 10:03a m [facility] Medical Records Department [address] [place] [address] Progress Note - OBGYN 06/22/23 0958 MR#: [id number] Acct: [id number] Name: KARLA TUTTLE Rep #:[id number] : 1995 27 From: Trish Beckman CNM PCP: Care Physician,No Primary Status :ADM IN Location: [place] [address] Subjective Subjective Patient doing well without complaints. Tolerating PO. Ambulating and voiding without difficulty. Feeding well. Denies chest pain, shortness of breath, calf pain/swelling, fevers, chills, mild lightheadedness. Objective Data Objective Data Vital Signs: Vital Signs Temp Pulse Resp BP Pulse Ox O2 Del Method 98.6 F 97 18 92/58 L 98 Room Air 06/22/23 09:00 06/22/23 09:00 06/22/23 09:00 06/22/23 09:00 06/22/23 09:00 06/22/23 09:00 Oxygen Delivery Method Room Air Weight: 233 lb Body Mass Index (BMI) 37.5 Intake & Output: Intake and Output for Last 24 Hours 06/20/23 06/21/23 06/22/23 23:59 23:59 23:59 Intake Total 3399.73 / 3399.73 1200 / 1200 Output Total 1550 / 1550 450 / 450 Balance 1849.73 / 1849.73 750 / 750 Lab / Micro Data 06/22/23 05:39 Labs: Laboratory Results - last 24 hr 06/21/23 05:45: Crossmatch See Detail 06/21/23 17:25: WBC 20.7 H, RBC 3.43 L, Hgb 9.6 L, Hct 30.6 L, MCV 89.2, MCH 28.0, MCHC 31.4 L, RDW Std Deviation 46.3 H, RDW Coeff of Edwin 14.2, Plt Count 335, MPV 10.4, Immature Gran % (Auto) 1.200 H, Neut % (Auto) 82.0 H, Lymph % (Auto) 8.9 L, [place] % (Auto) 7.7, Eos % (Auto) 0.0, Baso % (Auto) 0.2, Absolute Neuts (auto) 17.0 H, Absolute Lymphs (auto) 1.84, Nucleated RBC % 0, Differential Comment SCANNED, Diff Path Review June06/21/23 21:58: WBC 18.2 H, RBC 3.17 L, Hgb 9.0 L, Hct 27.5 L, MCV 86.8, MCH 28.4, MCHC 32.7, RDW Std Deviation 44.7 H, RDW Coeff of Edwin 14.1, Plt Count 282,MPV 10.4, Immature Gran % (Auto) 0.500, Neut % (Auto) 88.8 H, Lymph % (Auto) 4.5L, [place] % (Auto) 5.8, Eos % (Auto) 0.2, Baso % (Auto) 0.2, Absolute Neuts (auto)16.1 H, Absolute Lymphs (auto) 0.82 L, Nucleated RBC % 0 06/22/23 05:39: WBC 15.5 H, RBC 2.73 L, Hgb 7.8 L, Hct 24.1 L, MCV 88.3, MCH 28.6, MCHC 32.4, RDW Std Deviation 46.2 H, RDW Coeff of Edwin 14.4, Plt Count 272,MPV 10.6 Physical Exam Const alert and oriented x3 Chest inspection of chest normal Resp normal respiratory effort, normal air movement and no retractions Cardio regular rate and regular rhythm GI normal to inspection, nondistended, normoactive bowel sounds Extremity normal to inspection and full ROM Skin Skin Narrative: dressing c/d/i Psych mental status grossly normal Assessment & Plan (1) hemorrhage: COMMENT: CBC check at 2200 and AM type and screen complete 2u PRBC on hold PLAN: transfuse 2u PRBC CBC 6 hours following transfusion (2) Chorioamnionitis, delivered, current hospitalization: COMMENT: continue amp/gent/clinda x48 hour . (3) delivery delivered: COMMENT: JV CS 40weeks failed vacuum/chorio girl: Paige PLAN: Plan s/p LTCS PPD # 1 1. routine post care 2. breast feeding- support given 3. rh positive 4. rubella immune 5. plan blood transfusion for anemia. 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 Maternal Data Information FLOR Calculator Estimated Delivery Date Method Current WG Current Estimate 06/22/23 LMP (Certain) 39w 6d Other Estimates 06/27/23 Ultrasound #1 39w 1d PFSH PFSH Medical History Congenital abnormality ureter Home Medications multivit-min no.71-iron fum 28 mg-folate no.1 1 mg-dha 300 mg capsule (PNV- [place] Bottom) 1 cap PO DAILY 11/26/22 [History Last Taken 06/20/23] Allergy/AdvReac Type Severity Reaction Status Date / Time No Known Allergies Allergy Verified 06/21/23 06:47 Family History Grandmother Breast cancer, Onset Age: 70 Paternal Thyroid disorder Paternal- hyperthyroid Aunt Cancer Maternal - thyroid Surgical History [place] teeth removed Social History adopted: No household members: spouse current occupational status: employed current occupation: [employer] current occupational exposures/hazards: No pets and animals: Yes (Not managing litterbox while ) pets and animals:cat(s) and dog(s) history of recent travel: No sexually active: Yes Smoking Status: Never smoker alcohol intake: former year quit: 2019 details: Only social /occasional intake before Quit 3 years ago. substance use type: does not use well-balanced diet: about half the time caffeine: Yes Type: coffee Number of servings: 1 eating out: rarely or never during the past year weight has: remained stable what type of physical activity do you participate in: none tez/yazidism: None seatbelt use: always do you feel safe at home: Yes additional social history: Alberto Degroot- [employer] Bonding History 1 Elective abortions Hx Para 0 Spontaneous abortions Hx # Term Pregnancies Ectopic pregnancies Hx # Pregnancies Multiple births # of living children Visit Details Expected Delivery Route/Plan Labor Preferences- CB/BF classes: enc labor support person: Alberto labor intervention preferences: [] pain management options preferred: limited intervention cut cord/dad catch: cord : yes PP control planned: discussed discussed possible routes of delivery and associated risks: [] special requests: [] Plans Covid status: [] Flu vaccine: no Tdap vaccine: [] Rhogam: na LARC form signed: yes movement and labor precautions reviewed. Problem list reviewed and updated with the most current plan of care details and appropriate orders placed. Relevant counseling for the gestational age provided. Continue routine care and follow up unless otherwise noted in visit notes/problem list details OB Flowsheet Initial Weight: Not Recorded Date -?-?-?-?-?-?-?-?-?-?-?-?- EGA Weight BP Urine Prot -?-?-?-?-?-?-?-?-?-?-?-?- Glucose FHR FuHt Pres Dilation -?-?-?-?-?-?-?-?-?-?-?-?- Effaced St Visit Note 11/26/22 -?-?-?-?-?-?-?-?-?-?-?-?- 10w 2d 228 lb 2 oz 155/88 -?-?-?-?-?-?-?-?-?-?-?-?- 150 -?-?-?-?-?-?-?-?-?-?-?-?- SM- CRL cons wit h lmp 12/27/22 -?-?-?-?-?-?-?-?-?-?-?-?- 14w 5d 226 lb 2 oz 135/86 Nega tive -?-?-?-?-?-?-?-?-?-?-?-?- Negative 159 -?-?-?-?-?-?-?-?-?-?-?-?- JV- no cramping or spotting. Anatomy ultrasound ordered. 01/30/23 -?-?-?-?-?-?-?-?-?-?-?-?- 19w 4d 224 lb 6 oz 134/84 Nega tive -?-?-?-?-?-?-?-?-?-?-?--?- Negative 147 -?-?-?-?-?-?-?-?-?-?-?-?- MH-No VB. Feelin g some flutters. Denies concerns. MFM US today 02/27/23 -?-?-?-?-?-?-?-?-?-?-?-?- 23w 4d 225 lb 6 oz 134/82 Nega tive -?-?-?-?-?-?-?-?-?-?-?-?- Negative 145 -?-?-?-?-?-?-?-?-?-?-?-?- MH-No VB. Good Mary Kay Hercules. She is feeling much stress due to abnormal US of brain-sees MFM 03/05. 03/27/23 -?-?-?-?-?-?-?-?-?-?-?-?- 27w 4d 227 lb 118/74 Negative -?-?-?-?-?-?-?-?-?-?-?-?- Negative 156 27 -?-?-?-?-?-?-?-?-?-?-?-?- MH-No VB, LOF. G ood FM. States sees tx again next week and if still abnormal US of brain will get amnio/NIPT. 28 wk labs pending. 04/16/23 -?-?-?-?-?-?-?-?-?-?-?-?- 30w 3d 229 lb 8 oz 126/80 Nega tive -?-?-?-?-?-?-?-?-?-?-?-?- Negative 145 31 -?-?-?-?-?-?-?-?-?-?-?-?- JV- fasting gluc ose 80-90, 2hr pp levels upper 90s'-110. not needing to modify diet. no lof, vaginal bleeding, or dec fm. 04/28/23 -?-?-?-?-?-?-?-?-?-?-?-?- 32w 1d 227 lb 4 oz 129/83 Nega tive -?-?-?-?-?-?-?-?-?-?-?-?- Negative 142 32 -?-?-?-?-?-?-?-?-?-?-?-?- JV- glucose leve ls same as last visit. has next growth scan tomorrow with MFM. no lof, vaginal bleeding, or dec fm. 05/13/23 -?-?-?-?-?-?-?-?-?-?-?-?- 34w 2d 230 lb 124/80 Negative -?-?-?-?-?-?-?-?-?-?-?-?- Negative 145 35 -?-?-?-?-?-?-?-?-?-?-?-?- KW- no vb/lof/ct x. good fm. BS remain stable. Tdap today. cont growth US q4 weeks. brain normal on last US. 05/28/23 -?-?-?-?-?-?-?-?-?-?-?-?- 36w 3d 232 lb 6 oz 128/81 Nega tive -?-?-?-?-?-?-?-?-?-?-?-?- Negative 147 37 -?-?-?-?-?-?-?-?-?-?-?-?- JV- gbs done to[facility] lee. and tomorrow is follow up us with MFM in [place]. 06/03/23 -?-?-?-?-?-?-?-?-?-?-?-?- 37w 2d 231 lb 6 oz 131/79 Nega tive -?-?-?-?-?-?-?-?-?-?-?-?- Negative 142 38 -?-?-?-?-?-?-?-?-?-?-?-?- JV- last growth ws 48th%. pt states mfm told her she graduated plan for usual 41 week IOL as needed 06/10/23 -?-?-?-?-?-?-?-?-?-?-?-?- 38w 2d 233 lb 131/85 Negative -?-?-?-?-?-?-?-?-?-?-?-?- Negative 145 39 Cephalic 3 -?-?-?-?-?-?-?-?-?-?-?-?- 80 -1 KW- no vb/ lof/ctx. good fm. labor precautions 06/16/23 -?-?-?-?-?-?-?-?-?-?-?-?- 39w 1d 232 lb 129/82 Negative -?-?-?-?-?-?-?-?-?-?-?-?- Negative 140 39 Cephalic 3 -?-?-?-?-?-?-?-?-?-?-?-?- 80 -1 Sm- no vb lof good fm no regular ctx BS WNL discussed expectant mangement for now, normal growth us and normal BS NST FHR Rate Baby A Baseline: 140 Variability:: Moderate Accelerations:: 15 x 15 Decelerations:: None NST Reactive:: Yes FHR Category:: Category I Uterine Activity:: q5 minutes ROS Cardiovascular Cardiovascular: Denies abdominal pain, chest pain, diaphoresis or dyspnea Respiratory/Chest Respiratory/Chest: Denies change in mental status, chest congestion, chest tightness, cough, shortness of breath at rest, shortness of breath with exertion, breast mass, breast pain, breast skin changes, breast swelling, change in breast shape or nipple discharge Genitourinary Genitourinary: Reports change in urinary stream Musculoskeletal Musculoskeletal: Reports none Integumentary Integumentary: Reports none Neurologic Neurologic: Reports none Psychiatric Psychiatric: Reports none Endocrine Endocrinology: Reports none Hematologic/Lymphatic Hematologic/Lymphatic: Reports none Allergic/Immunologic Allergic/Immunologic: Reports none Vital Signs Vital Signs Vital Signs: 06/21/23 05:16 06/21/23 05:16 06/21/23 05:16 Temperature Temperature Source Pulse Rate 95 Respiratory Rate Blood Pressure 136/81 H BP Systolic 136 BP Diastolic 81 Pulse Ox 98 06/21/23 05:16 06/21/23 05:16 06/21/23 05:16 Temperature Temperature Source Oral Pulse Rate Respiratory Rate 16 Blood Pressure BP Systolic BP Diastolic Pulse Ox 98 06/21/23 05:16 06/21/23 06:15 06/21/23 06:15 Temperature 99.0 F Temperature Source Temporal Pulse Rate Respiratory Rate 16 Blood Pressure BP Systolic BP Diastolic Pulse Ox 06/21/23 06:15 06/21/23 07:14 06/21/23 07:14 Temperature 99.1 F Temperature Source Pulse Rate 103 H Respiratory Rate Blood Pressure 140/77 H BP Systolic 140 BP Diastolic 77 Pulse Ox 06/21/23 07:15 06/21/23 07:15 06/21/23 07:19 Temperature Temperature Source Pulse Rate 107 H Respiratory Rate Blood Pressure 130/73 H BP Systolic 130 BP Diastolic 73 Pulse Ox 99 06/21/23 07:19 06/21/23 07:20 06/21/23 07:20 Temperature Temperature Source Pulse Rate 108 H 105 H Respiratory Rate Blood Pressure BP Systolic BP Diastolic Pulse Ox 98 06/21/23 07:24 06/21/23 07:24 06/21/23 07:25 Temperature Temperature Source Pulse Rate 97 100 Respiratory Rate Blood Pressure 116/66 BP Systolic 116 BP Diastolic 66 Pulse Ox 06/21/23 07:25 06/21/23 07:26 06/21/23 07:26 Temperature Temperature Source Pulse Rate 100 Respiratory Rate Blood Pressure BP Systolic BP Diastolic Pulse Ox 98 94 06/21/23 07:29 06/21/23 07:29 06/21/23 07:30 Temperature Temperature Source Pulse Rate 105 H 105 H Respiratory Rate Blood Pressure 121/75 H BP Systolic 121 BP Diastolic 75 Pulse Ox 06/21/23 07:30 06/21/23 07:34 06/21/23 07:35 Temperature Temperature Source Pulse Rate 105 H Respiratory Rate Blood Pressure 124/75 H BP Systolic 124 BP Diastolic 75 Pulse Ox 98 06/21/23 07:34 06/21/23 07:35 06/21/23 07:39 Temperature Temperature Source Pulse Rate 104 H Respiratory Rate Blood Pressure 120/71 BP Systolic 120 BP Diastolic 71 Pulse Ox 98 06/21/23 07:39 06/21/23 07:55 06/21/23 07:55 Temperature Temperature Source Pulse Rate 105 H 100 Respiratory Rate Blood Pressure 130/70 H BP Systolic 130 BP Diastolic 70 Pulse Ox 06/21/23 08:11 06/21/23 08:11 06/21/23 08:25 Temperature Temperature Source Pulse Rate 90 Respiratory Rate Blood Pressure 111/57 L 125/69 H BP Systolic 111 125 BP Diastolic 57 69 Pulse Ox 06/21/23 08:25 06/21/23 08:40 06/21/23 08:40 Temperature Temperature Source Pulse Rate 107 H 97 Respiratory Rate Blood Pressure 129/63 H BP Systolic 129 BP Diastolic 63 Pulse Ox 06/21/23 07:15 06/21/23 07:00 06/21/23 07:30 Temperature Temperature Source Pulse Rate Respiratory Rate 16 16 16 Blood Pressure BP Systolic BP Diastolic Pulse Ox 06/21/23 07:25 06/21/23 07:20 06/21/23 07:34 Temperature Temperature Source Pulse Rate Respiratory Rate 16 16 16 Blood Pressure BP Systolic BP Diastolic Pulse Ox 06/21/23 08:55 06/21/23 08:55 06/21/23 09:25 Temperature Temperature Source Pulse Rate 111 H Respiratory Rate Blood Pressure 123/63 H 98/64 BP Systolic 123 98 BP Diastolic 63 64 Pulse Ox 06/21/23 09:25 06/21/23 09:55 06/21/23 09:55 Temperature Temperature Source Pulse Rate 99 90 Respiratory Rate Blood Pressure 118/56 L BP Systolic 118 BP Diastolic 56 Pulse Ox 06/21/23 10:25 06/21/23 10:25 06/21/23 10:25 Temperature Temperature Source Pulse Rate 88 Respiratory Rate 16 Blood Pressure 113/59 L BP Systolic 113 BP Diastolic 59 Pulse Ox 06/21/23 10:56 06/21/23 10:56 06/21/23 11:19 Temperature Temperature Source Temporal Pulse Rate 94 Respiratory Rate Blood Pressure 117/55 L BP Systolic 117 BP Diastolic 55 Pulse Ox 06/21/23 11:19 06/21/23 11:19 06/21/23 11:25 Temperature 99.7 F H Temperature Source Pulse Rate Respiratory Rate 16 Blood Pressure 122/60 H BP Systolic 122 BP Diastolic 60 Pulse Ox 06/21/23 11:25 06/21/23 12:55 06/21/23 12:55 Temperature Temperature Source Pulse Rate 100 111 H Respiratory Rate Blood Pressure 138/66 H BP Systolic 138 BP Diastolic 66 Pulse Ox 06/21/23 13:27 06/21/23 13:27 06/21/23 13:50 Temperature 99.2 F H Temperature Source Temporal Pulse Rate 112 H Respiratory Rate Blood Pressure BP Systolic BP Diastolic Pulse Ox 06/21/23 13:50 06/21/23 14:04 06/21/23 14:04 Temperature 100.5 F H Temperature Source Oral Pulse Rate Respiratory Rate Blood Pressure BP Systolic BP Diastolic Pulse Ox 100 06/21/23 14:06 06/21/23 14:06 06/21/23 14:55 Temperature Temperature Source Pulse Rate 118 H Respiratory Rate Blood Pressure 126/95 H 135/64 H BP Systolic 126 135 BP Diastolic 95 64 Pulse Ox 06/21/23 14:55 06/21/23 15:11 06/21/23 15:09 Temperature Temperature Source Oral Temporal Pulse Rate 118 H Respiratory Rate Blood Pressure BP Systolic BP Diastolic Pulse Ox 06/21/23 15:11 06/21/23 15:09 06/21/23 15:25 Temperature 100.1 F H 103.4 F H Temperature Source Pulse Rate Respiratory Rate Blood Pressure 134/63 H BP Systolic 134 BP Diastolic 63 Pulse Ox 06/21/23 15:25 06/21/23 15:38 06/21/23 15:38 Temperature Temperature Source Pulse Rate 99 101 H Respiratory Rate Blood Pressure 130/61 H BP Systolic 130 BP Diastolic 61 Pulse Ox Weight Weight: 233 lb Body Mass Index (BMI) 37.5 Physical Exam Const alert, oriented x3 and no apparent distress General Appearance: cooperative, comfortable and well kempt Orientation / Consciousness: awake and oriented to person Exam Limitations: no limitations HEENT normocephalic Neck full ROM Chest inspection of chest normal Resp normal respiratory effort, normal air movement and no retractions Effort and Inspection: able to speak in complete sentences and symmetric chest movement Cardio regular rate Peripheral Pulses: pulses 2+ throughout GI normal to inspection, nondistended, normoactive bowel sounds Inspection: gravid no CVA tenderness and appearance of the vagina normal External Female Exam: normal appearance of the urethra; Negative for external lesion OB / External & Speculum: external exam normal Manual OB Exam: estimated gestational size appropriate and presentation cephalic Uterus Palpation: Negative for uterus tender Extremity normal to inspection Skin no rashes or lesions noted Neuro deep tendon reflexes 2+ bilaterally and gait normal Motor Exam: strength 5/5 throughout and clonus absent Psych Activity / Motor Behavior: appropriate eye contact Speech: normal speech Labs Labs Labs: Blood Type A POSITIVE Antibody Screen NEGATIVE Hct 30.6 % (37-47) L Hgb 9.6 g/dL (12.0-15.0) L Syphilis Total Ab Non-reactive Rubella IgG Antibody Reactive (Nonreactive) Hep Bs Antigen Non-Reactive (Nonreactive) Hepatitis C Antibody Non-Reactive (Nonreactive) Chlamydia DNA (TONG) Negative (Negative) N.gonorrhoeae DNA (TONG) Negative (Negative) HIV 1&2 Antibody Non-Reactive (Nonreactive) Glucose 1 Hr 50 gm 178 mg/dL (70-140) H Assessment & Plan (1) Supervision of normal first : QUALIFIERS: Trimester: second trimester Qualified Code(s): Z34.02 - Encounter for supervision of normal first , second trimester COMMENT: [id number], FLOR 06/22/23,girl Paige Alberto (2) : QUALIFIERS: Weeks of gestation: 39 weeks Qualified Code(s): Z3A.39 - 39 weeks gestation of COMMENT: Neg GBS. declined genetic & carrier testing (3) Spontaneous onset of labor: COMMENT: change in cervical exam,epidural for pain management. PLAN: Plan Patient presents IAL, plan expectant management for , pitocin/AROM PRN if needed. Pain management: plans epidural. GBS neg. Management of any complications: none I have reviewed the [facility] and made any clinically relevant updates. Dr. Pastrana updated on admission, exam and poc at 0531. delayed H&P 06/21/238 <Electronically signed by Trish Beckman CNM> Cosigner Signature (if applicable): CC: MARISOL Beckman; No Primary Care Physician~ Signed [facility] Work Phone: 1(701) 638-445305-04-2024 Discharge summary Author Latoya Nemwan [facility] June 21, 2023 6:22pm Note Date/Time June 21, 2023 6:22pm [facility] Medical Records Department [address] [place] [address] Instructions for Home/Discharge Instructions 06/21/23 1822 MR#: [id number] Acct: [id number] Name: KARLA TUTTLE Rep #:[id number] : 1995 27 From: Latoya Marquez DO PCP: Care Physician,No Primary Status :ADM IN Discharge Instructions Diet Discharge Diet: No restrictions Activity Discharge Activity: May Not Drive (for 2 weeks or while taking narcotic pain medications.), May Shower and May Take a Tub Bath (in 7 days.) May resume sexual activity in: 4-6 weeks Weight Bearing Status: Full weight bearing Lifting Restrictions: 20 pounds Dressing / Incision Call your doctor if your incision/area has: Continuous Slow Oozing, Sudden Increased Bleeding, Increased Pain/ Swelling, Increased Redness and Foul Smelling Discharge Call your doctor if you observe: Fever of 101 or Higher and Using more than 1 pad per hour Suture Line Care: Avoid Pulling/Pushing and Avoid Pinching/Bending Cleanse incision/area with: Soap & Water and Keep Dressing Clean & Dry Follow Up Care Please Follow Up With: Latoya Marquez DO When: Call [phone] to make an appointment for an incision check in 1-2 weeks. Test Results: Test results from this visit will be discussed in further detail at your follow- up appointment, if applicable. Discharge Plan Admission Admit Date/Time: 06/21/23 05:26 Attending Provider: Latoya Marquez Primary Care Provider: Edilberto PhysicianNajma Primary Discharge Orders/Prescriptions Prescriptions: No Action PNV-Fraziers Bottom 28-1-300 mg capsule 1 cap PO DAILY Referrals / Follow Up: Edilberto Physician,Najma Primary [Primary Care Provider] - 06/21/23 1822<Electronically signed by Latoya Marquez DO>Latoya Marquez DO CC: No Primary Care Physician ~ Signed [facility] Work Phone: 1(317) 393-455805-04-2024 Procedure [facility] 06-21-2023 Procedure [facility]05-04-2024 Consult note Author Trish Beckman [facility] June 21, 2023 2:44pm Note Date/Time June 21, 2023 2:44pm [facility] Medical Records Department [address] [place] [id number] Consultation 06/21/23 1435 MR#: [id number] Acct: [id number] Name: KARLA TUTTLE Rep #:[id number] : 1995 27 From: Trish Beckman CNM PCP: Edilberto Alicea,No Primary Status :ADM IN Location: [id number] Consult Date of Consult: 06/21/23 Assessment & Plan Assessment/Plan (1) Maternal fever affecting labor: PLAN: Plan pt fully dilated, second stage developed tachycardia to 180, maternal tempto 100.5. IV fluids, and Tylenol provided. current tracing: FHT: Moderate variability reactive no decelerations category II tracing, tachycardia trending downward to 165 baseline. [place]: q3.5 minutes Contractions reviewed tracing abnormalities since last note: tachycardia A/P: triple III, suspected chorioamnionitis. -ampicillin 2g and gentamicin 5mg/kg -anticipate , discussed vacuum delivery if needed Dr. Pastrana updated on maternal fever, agrees with management, available as needed for vacuum if persistent tachycardia. currently with reassuring maternal and status, pushing well and fetus with moderate variability with pushing. 06/21/23 1444 <Electronically signed by Trish Beckman CNM> Cosigner Signature (if applicable): CC: No Primary Care Physician~ Signed [facility] Work Phone: [phone]) 875-644005-23-2022 NoteHNO ID: [id number] Author: Kaitlin Montilla APRN.CNM Service: ? Author Type: Pumper Helper Type: Progress Notes Filed: 07/09/2021 10:31 AM Note Text: Kalra is a 25 year old No obstetric [...] OB History No obstetric history on file. Size Marker History LMP: 03/19/2021, Having periods Age at Menarche: Age at First : Age at Menopause: Size Marker History Comments: Sexual Activity: No sexual activity [...] external genitalia normal, normal Bartholin's glands, urethra, [place]'s glands, no vulvar lesions, no cervical lesions, [...] year or sooner as needed Kaitlin Montilla APRN.[facility]04-13-2022 NoteHNO ID: [id number] Author: Dolly Bermudez Service: ? Author Type: [...] of Care Visit completed when applicable. [facility] History of Present illness Narrative* Dolly Bermudez - 05/30/2021 8:04 AM EDT UNIVERSAL PROTOCOL / SAFETY CHECKLIST Procedure to [...] when applicable. [facility]olly [facility]ermudez [facility] NoteHNO ID: [id number] Author: Naila Berry Service: ? Author Type: [...] of Care Visit completed when applicable. Naila [facility]ge[facility]04-[facility] History of Present illness Narrative* Naila Rodriges Kristi - 05/28/2021 3:26 PM EDT UNIVERSAL PROTOCOL / SAFETY CHECKLIST Procedure to [...] of Care Visit completed when applicable. Naila Aguilarnadege [facility]2022 NoteHNO ID: [id number] Author: RT Ronnell(R) Service: ? Author Type: Technologist Type: Progress Notes Filed: 05/01/2021 2:40 PM Note Text: Radiology Service Progress Note PATIENT NAME: Karla Tuttle DATE OF SERVICE: May 01, 2021 TIME: [...] BY: RT Ronnell(R) May 01, 2021 2:40 [facility]02-25-2022 NoteHNO ID: [id number] Author: Yareli Lemus MD Service: ? Author Type: Physician Type: Progress Notes Filed: 04/13/2021 10:33 AM Note Text: General Neurology Outpatient Clinic - new patient evaluation Date: April 13, 2021 Patient Name: Karla Tuttle Referring physician: Shelley Overton [address] [facility] [address] [facility] [address] Primary [place]: [place] [id number] [place] [address] Reason for Evaluation: lightheadedness HPI: The pt [...] [facility] for further evaluation. Was in [facility] 09/20/2020 for intermittent dizziness. Told she may have POTS in the past but she was tired of seeing doctors and saw didn't see anyone for a few years. Previously saw Cardiology 02/19/2021 for lightheadedness and palpitations. Possible diagnosis of POTS in past based on tilt table evaluation but those records are unavailable. regulatory attorney neg for arrhthymias, echo without structural abnormalities, [...] Negative for joint pain (more content not included)...[facility]02-14-[facility]22 NoteHNO ID: [id number] Author: Shelley Overton APRN.MAGALIS Service: ? Author Type: Nurse Practitioner Type: Progress Notes Filed: 04/08/2021 8:12 PM Note Text: Chief Complaint Patient presents with: Established Patient History of Present Illness: Karla Tuttle is a 25 year old female who [...] injection (DEFINITY) INTRAVENOUS DIRECTED PRN Rachel Moon, FOOD AND BEVERAGE CHECKER.SPARERIBS TRIMMER - sodium chloride 0.9 % (flush) 10 mL (BD POSIFLUSH) 10 mL INTRAVENOUS DIRECTED PRN Rachel Moon APRN.SPARERIBS TRIMMER Review of Systems Constitutional: Negative for chills, [...] and oriented t (more content not included)... [facility]01-[facility] NoteHNO ID: [id number] Author: Shelley Overton APRN.MAGALIS Service: ? Author Type: Nurse Practitioner Type: Progress Notes Filed: 02/21/2021 10:15 AM Note Text: [facility] Cardiology ([place] [facility] [address] [facility] [id number] OUTPATIENT VISIT February 19, 2021 2:00 PM Chief Complaint Patient presents with: New Patient: Lightheaded, palpatations History of Present Illness: Karla Tuttle is a very pleasant 25 year old [...] injection (DEFINITY) INTRAVENOUS DIRECTED PRN Rachel Moon APRN.SPARERIBS TRIMMER - sodium chloride 0.9 % (flush) 10 mL (BD POSIFLUSH) 10 mL INTRAVENOUS DIRECTED PRN Rachel Moon APRN.SPARERIBS TRIMMER Review of Systems Constitutional: Negative for chills, [...] kg) Physical Exam HENT: (more content not included)...[facility] NoteHNO ID: [id number] Author: Ashlee Golden MD Service: Interventional Cardiology Author Type: Physician Type: Procedures Filed: 12/21/2020 10:21 AM Note Text: Patient Name: Karla Tuttle : 1995 Ordering Provider: RACHEL MOON Indication: R00.2 Palpitations Type of Monitor: Extended Monitoring-Zio Patch Enrollment Dates: 11/23/2020-12/07/2020[facility]09-27-2021 Note HNO ID: [id number] Author: Rachel Moon APRN.SPARERIBS TRIMMER Service: ? Author Type: Nurse Practitioner Type: Progress Notes Filed: 11/13/2020 7:50 PM Note Text: This is a 25 year old female who presents today with: Patient presents with: Dizziness: x 4 years, has been to Neurology and had tilt table testing done, was told could be POTS but no formal dx HISTORY OF PRESENT ILLNESS: Karla Tuttle is a 25 year old female. Patient [...] happen when standing up. Tilt table through [facility]. Dr. Natalio perry/ [facility]. Neurology. Has never had an echo. Has [...] 1.1 MG/ML INJECTION IN (more content not included)...[facility] Paresthesia of skin- Primary Disturbance of skin sensation Orthostatic lightheadedness Dizziness and giddiness [facility] Diagnosis Orthostatic lightheadedness- Primary Dizziness and giddiness [facility] Diagnosis Screening, , for malformation by ultrasound Encounter for routine screening for malformation using ultrasonics [facility] Onset Date Resolution Status Obesity affecting , antepartum acute acute Supervision of normal first acute Obesity affecting , antepartum acute acute Supervision of normal first acute Abnormal ultrasound ac osage Obesity affecting , antepartum acute acute Supervision of normal first acute Abnormal ultrasound ac osage Anemia in preg-unspec acute Obesity affecting , antepartum acute acute Supervision of normal first acute [facility] Work Phone: Evaluation note* Diagnosis Onset Date Resolution Status Obesity affecting , antepartum acute acute Supervision of normal first acute Abnormal ultrasound ac osage Obesity affecting , antepartum acute acute Supervision of normal first acute Abnormal ultrasound ac osage Anemia in preg-unspec acute Obesity affecting , antepartum acute acute Supervision of normal first acute Abnormal ultrasound ac osage Abnormal glucose complicating childbirth acute Anemia in preg-unspec acute Obesity affecting , antepartum acute acute Supervision of normal first acute Abnormal ultrasound ac osage Abnormal glucose complicating childbirth acute Anemia in preg-unspec acute Obesity affecting , antepartum acute acute Supervision of normal first acute Abnormal ultrasound ac osage Abnormal glucose complicating childbirth acute Anemia in preg-unspec acute Obesity affecting , antepartum acute acute Supervision of normal first acute [facility] Work Phone: Evaluation note* Diagnosis Onset Date Resolution Status Abnormal ultrasound ac osage Obesity affecting , antepartum acute acute Supervision of normal first acute Abnormal ultrasound ac osage Anemia in preg-unspec acute Obesity affecting , antepartum acute acute Supervision of normal first acute Abnormal ultrasound ac osage Abnormal glucose complicating childbirth acute Anemia in preg-unspec acute Obesity affecting , antepartum acute acute Supervision of normal first acute Abnormal ultrasound ac osage Abnormal glucose complicating childbirth acute Anemia in preg-unspec acute Obesity affecting , antepartum acute acute Supervision of normal first acute Abnormal ultrasound ac osage Abnormal glucose complicating childbirth acute Anemia in preg-unspec acute Obesity affecting , antepartum acute acute Supervision of normal first acute Abnormal ultrasound ac osage Abnormal glucose complicating childbirth acute Anemia in preg-unspec acute Obesity affecting , antepartum acute acute Supervision of normal first acute [facility] Work Phone: Evaluation note* Diagnosis Onset Date Resolution Status Abnormal ultrasound ac osage Obesity affecting , antepartum acute acute Supervision of normal first acute Abnormal ultrasound ac osage Anemia in preg-unspec acute Obesity affecting , antepartum acute acute Supervision of normal first acute Abnormal ultrasound ac osage Abnormal glucose complicating childbirth acute Anemia in preg-unspec acute Obesity affecting , antepartum acute acute Supervision of normal first acute Abnormal ultrasound ac osage Abnormal glucose complicating childbirth acute Anemia in preg-unspec acute Obesity affecting , antepartum acute acute Supervision of normal first acute Abnormal ultrasound ac osage Abnormal glucose complicating childbirth acute Anemia in preg-unspec acute Obesity affecting , antepartum acute acute Supervision of normal first acute Abnormal ultrasound ac osage Abnormal glucose complicating childbirth acute Anemia in preg-unspec acute Obesity affecting , antepartum acute acute Supervision of normal first acute Abnormal ultrasound ac osage Abnormal glucose complicating childbirth acute Anemia in preg-unspec acute Obesity affecting , antepartum acute acute Supervision of normal first acute Abnormal ultrasound ac osage Abnormal glucose complicating childbirth acute Anemia in preg-unspec acute Obesity affecting , antepartum acute acute Supervision of normal first acute Abnormal ultrasound ac osage Abnormal glucose complicating childbirth acute Anemia in preg-unspec acute Obesity affecting , antepartum acute acute Supervision of normal first acute [facility] Work Phone: Evaluation note* Diagnosis Onset Date Resolution Status resolved Supervision of normal first resolved Anemia in preg-unspec acute resolved Supervision of normal first resolved Anemia in preg-unspec acute resolved Supervision of normal first resolved Anemia in preg-unspec acute resolved Supervision of normal first resolved Anemia in preg-unspec acute resolved Supervision of normal first resolved Anemia in preg-unspec acute resolved Supervision of normal first resolved Anemia in preg-unspec acute resolved Supervision of normal first resolved Anemia in preg-unspec acute resolved Supervision of normal first resolved Anemia in preg-unspec acute resolved Supervision of normal first resolved Anemia in preg-unspec acute delivery delivered acute Chorioamnionitis, delivered, current hospitalization acute hemorrhage acute resolved Supervision of normal first resolved [facility] Work Phone: Evaluation noteNo assessment information available [facility] Work Phone: Progress note Author Mickie Murray [facility] June 19, 2023 5:15pm Note Date/Time June 19, 2023 5:15pm [facility] Medical Records Department [address] [facility] [place] [address] OB Triage Progress Note 06/19/231713 MR#: [id number] Acct: [id number] Name: KARLA TUTTLE Rep #:[id number] : 1995 27 From: Mickie obrien MD PCP: Care Physician,No Primary Status :REG CLI Y DOS: Location: [place] [address] Progress Notes Progress Note: Patient presents for triage evaluation secondary to decresaed movement FHT: 140 Moderate variability reactive no decelerations category I tracing [place]: irregular Contractions Assessment and plan: decreased movement- now feeling some, Reactive NST, reassuring maternal and status patient discharged to home to follow-up as scheduled, reviewed kick count precautions. See problem list details for additional plan information. Charges/Coding Procedures Urinary/Genital 52xxx-59xxx: 21889-82 non-stress test Interp 06/19/231714 <Electronically signed by Mickie armenta MD> Date _ Mickie Murray MD Cosigner Signature (if applicable): Date CC: Dr. Mickie Murray MD; No Primary Care Physician ~ Signed [facility] Work Phone: Progress note Author Latoya Newman [facility] Note Date/Time October 05, 2024 9: 56am [facility] [address], [address] [place] [address] OFFICE VISIT Date of Service: 10/05/24 MR#: [id number] Acct: [id number] Name: DWAINKARLA PONCE Rep #: [id number] : 1995 Provider: Dr. Gauri Marquez DO Age/Sex: 28/F Location: [facility] Status: Signed Intake Vital Signs 08/05/24 10:38 09/06/24 08:29 10/05/24 09:36 10/05/24 09:56 Height 5 ft 6 in 5 ft 6 in 5 ft 6 in Weight: 220 lb 9.6 oz BP 134/76 H Intake Visit Reasons: 15wk ob Bell Person Required: No Is patient in pain?: No Allergies No Known Allergies Allergy (Verified 10/05/24 09:36) Medications ?Medication ?Instructions ?Recorded ?Confirmed ?Type multivit-min no.71-iron fum 28 1 cap PO DAILY pregnanc y 11/26/22 10/05/24 History mg-folate no.1 1 mg-dha 300 mg capsule (PNV-[place]) Last Menstrual Period: 06/02/24 Zika: Zika virus screening: Negative : No PFSH PFSH Medical History Anemia in preg-unspec Chorioamnionitis, delivered, current hospitalization hemorrhage delivery delivered False labor Abnormal ultrasound Congenital abnormality ureter Surgical History Previous section [place] teeth removed Family History Grandmother Breast cancer, Onset Age: 70 Paternal Thyroid disorder Paternal- hyperthyroid Aunt Cancer, Onset Age: 53 Maternal - thyroid Social History adopted: No household members: spouse housing: house number of children: 1 current occupational status: employed current occupation: [employer] current occupational exposures/hazards: No pets and animals: Yes pets and animals: dog(s) history of recent travel: No sexually active: Yes Smoking Status: Never smoker second hand exposure: No alcohol intake: former year quit: 2019 details: Only social /occasional intake before Quit 4 years ago. 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 Date Name GA/Weeks Outcome Route Bth Weight Infant Gen Labor Lgth Anesthesia Del Locatn Provider FOB 06/21/23 Paige 39 live - full term 6#12 Female [facility] Dr. Hidalgo Delivery Date: 06/21/23 Last Updated by: Yudelka Vance Failed vacuum/chorio. PP hemorrhage, anemia, maternal fever HPI 15wk ob Details: KARLA DERGOOT is a 28 year old who presents for routine OB visit. OB Visit FLOR Calculator Estimated Delivery Date Method Current WG Current Estimate 03/21/25 Ultrasound #1 16w 1d Other Estimates 03/09/25 LMP (Certain) 17w 6d Expected Delivery Route/Plan repeat c/s desired Specific Issue/Plans Covid status: [] Flu vaccine: [] Tdap vaccine: [] Rhogam: [] LARC form signed: [] Problem list reviewed and updated with the most current plan of care details and appropriate orders placed. Relevant counseling for the gestational age provided. Continue routine care and follow up unless otherwise noted in visit notes/problem list details Initial Weight: 226 lb Date -?-?-?-?-?-?-?-?-?-?-?-?- EGA Weight BP Urine Prot -?-?-?-?-?-?-?-?-?-?-?-?- Glucose FHR FuHt Pres Dilation -?-?-?-?-?-?-?-?-?-?-?-?- Effaced St Visit Note 08/05/24 -?-?-?-?-?-?-?-?-?-?-?-?- 7w 3d 226 lb (+0 oz) 123/73 -?-?-?-?-?-?-?-?-?-?-?-?- 158 -?-?-?-?-?-?-?-?-?-?-?-?- KW- CRL not cons with dates. 1.17cm-7.2 weeks. Said she ovulated late with her last cycle. declines NIPT. will likely want R C/S 09/06/24 -?-?-?-?-?-?-?-?-?-?-?-?- 12w 0d 222 lb 4 oz (-3 lb 12 oz) 139/84 -?-?-?-?-?-?-?-?-?-?-?-?- 155 -?-?-?-?-?-?-?-?-?-?-?-?- SM- no vb lof la bs today 10/05/24 -?-?-?-?-?-?-?-?-?-?-?-?- 16w 1d 220 lb 9.6 oz (-5 lb 6.4 oz) 134/76 -?-?-?-?-?-?-?-?-?-?-?-?- 154 -?-?-?--?-?-?-?-?-?-?-?-?- JV- no lof, vagi nal bleeding, or dec fm. still nauseated. has some low back pain. anatomy scan scheduled 11/01 ACOG First Trimester First Trimester: Desire for , Alcohol, Tobacco Cessation, Illicit/Recreational Drug/Substance Use, Intimate Partner Violence, Barriers to care, Unstable Housing, Communication Barriers, Environmental/Work Hazards, Anticipated Course of Care, Toxoplasmosis Precations, Use of Any medications, Sexual activity, Exercise, Dental Care, Sauna/Hot tub use, Seat Belt use, Childbirth classes/Hospital facilities, Travel, Indications for Ultrasound and Screening for Aneuploidy; Discussed Second Trimester Second Trimester: Signs and Symptoms of Labor, Selecting a care provider, Reproductive Life Planning & Contreception, Care Planning and Intimate Partner Violence; Discussed Tobacco Cessation and Discussed Depression/Anxiety Third Trimester Third Trimester: Pain Management Plans, Labor support person(s), Immediate Larc, Signs and Symptoms of Preeclampsia, Feeding No , [place] Education and Family Medical Leave or Disability Forms Coding Level of Care Code OB Routine Diagnoses H/O hemorrhage, currently O09.299 Supervision of high-risk O09.90 12 weeks gestation of Z3A.12 Weeks of gestation: 12 weeks Obesity affecting O99.210 Previous section Z98.891 Assessment and Plan Assessment and Plan (1) H/O hemorrhage, currently : Status: Acute (2) Supervision of high-risk : Status: Acute Comment: PRR, , FLOR 03/09/25, PC Paige, Alberto (3) : Status: Acute Qualifiers: Weeks of gestation: 12 weeks Qualified Code(s): Z3A.12 - 12 weeks gestation of Comment: discussed NIPT & Carrier testing-declined (4) Obesity affecting : Status: Acute Comment: HGBA1c (5) Previous section: Status: Acute Comment: desires repeat 10/05/2459 <Electronically signed by Latoya Garcia DO> Date _ Latoya Marquez DO Cosigner Signature: Date (if applicable) CC: ~ [facility] Work Phone: Progress note Author Liane Archer [facility] Services Note Date/Time November 02, 2024 8:36am [facility] [address] [place] [address], [address] [place] [address] OFFICE VISIT Date of Service: 11/02/24 MR#: [id number] Acct: [id number] Name: KARLA DEGROOT Rep #: [id number] : 1995 Provider: JESSICA Archer Age/Sex: 29/F Location: [facility] Status: Signed Intake Vital Signs 08/05/24 10:38 10/05/24 09:36 11/02/24 08:07 11/02/24 08:11 Height 5 ft 6 in 5 ft 6 in 5 ft 6 in 5 ft 6 in Weight: 220 lb BMI 35.5 BP 119/74 Intake Visit Reasons: 20wk ob Chief Complaint: 20 Week OB Bell Person Required: No Is patient in pain?: No Allergies No Known Allergies Allergy (Verified 11/02/24 08:06) Medications ?Medication ?Instructions ?Recorded ?Confirmed ?Type multivit-min no.71-iron fum 28 1 cap PO DAILY pregnanc y 11/26/22 11/02/24 History mg-folate no.1 1 mg-dha 300 mg capsule (PNV-[place]) Last Menstrual Period: 06/02/24 Zika: Zika virus screening: Negative : No PFSH PFSH Medical History Anemia in preg-unspec Chorioamnionitis, delivered, current hospitalization hemorrhage delivery delivered False labor Abnormal ultrasound Congenital abnormality ureter Surgical History Previous section [place] teeth removed Family History Grandmother Breast cancer, Onset Age: 70 Paternal Thyroid disorder Paternal- hyperthyroid Aunt Cancer, Onset Age: 53 Maternal - thyroid Social History adopted: No household members: spouse housing: house number of children: 1 current occupational status: employed current occupation: [employer] current occupational exposures/hazards: No pets and animals: Yes pets and animals: dog(s) history of recent travel: No sexually active: Yes Smoking Status: Never smoker second hand exposure: No alcohol intake: former year quit: 2019 details: Only social /occasional intake before Quit 4 years ago. 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 Date Name GA/Weeks Outcome Route Bth Weight Infant Gen Labor Lgth Anesthesia Del Locatn Provider FOB 06/21/23 Paige 39 live - full term 6#12 Female [facility] Dr. Marquez Alberto Delivery Date: 06/21/23 Last Updated by: Yudelka Vance Failed vacuum/chorio. PP hemorrhage, anemia, maternal fever HPI 20wk ob Details: KARLA DEGROOT is a 29 year old who presents for routine OB visit. OB Visit FLOR Calculator Estimated Delivery Date Method Current WG Current Estimate 03/21/25 Ultrasound #1 20w 1d Other Estimates 03/09/25 LMP (Certain) 21w 6d Expected Delivery Route/Plan repeat c/s desired Specific Issue/Plans Covid status: [] Flu vaccine: [] Tdap vaccine: [] Rhogam: [] LARC form signed: [] Problem list reviewed and updated with the most current plan of care details and appropriate orders placed. Relevant counseling for the gestational age provided. Continue routine care and follow up unless otherwise noted in visit notes/problem list details Initial Weight: 226 lb Date -?-?-?-?-?--?-?-?-?-?-?-?- EGA Weight BP Urine Prot -?-?-?-?-?-?-?-?-?-?-?-?- Glucose FHR FuHt Pres Dilation -?-?-?-?-?-?-?-?-?-?-?-?- Effaced St Visit Note 08/05/24 -?-?-?-?-?-?-?-?-?-?-?-?- 7w 3d 226 lb (+0 oz) 123/73 -?-?-?-?-?-?-?-?-?-?-?-?- 158 -?-?-?-?-?-?-?-?-?-?-?-?- KW- CRL not cons with dates. 1.17cm-7.2 weeks. Said she ovulated late with her last cycle. declines NIPT. will likely want R C/S 09/06/24 -?-?-?-?-?-?-?-?-?-?-?-?- 12w 0d 222 lb 4 oz (-3 lb 12 oz) 139/84 -?-?-?-?-?-?-?-?-?-?-?-?- 155 -?-?-?-?-?-?-?-?-?-?-?-?- SM- no vb lof la bs today 10/05/24 -?-?-?-?-?-?-?-?-?-?-?-?- 16w 1d 220 lb 9.6 oz (-5 lb 6.4 oz) 134/76 Negative -?-?-?-?-?-?-?-?-?-?-?-?- Negative 154 -?-?-?-?-?-?-?-?-?-?-?-?- JV- no lof, vagi nal bleeding, or dec fm. still nauseated. has some low back pain. anatomy scan scheduled 11/0111/02/24 -?-?-?-?-?-?-?-?-?-?-?-?- 20w 1d 220 lb (-6 lb) 119/74 Trace -?-?-?-?-?-?-?-?-?-?-?-?- Negative 149 -?-?-?-?-?-?-?-?-?-?-?-?- MH-No VB. Feelin g movement. Has had 2 episodes of headache w vision changes. Had occular migraine with last . Labs ordered. Call with recurrence. Reviewed MFM US: low lying placenta. ACOG First Trimester First Trimester: Desire for , Alcohol, Tobacco Cessation, Illicit/Recreational Drug/Substance Use, Intimate Partner Violence, Barriers to care, Unstable Housing, Communication Barriers, Environmental/Work Hazards, Anticipated Course of Care, Toxoplasmosis Precations, Use of Any medications, Sexual activity, Exercise, Dental Care, Sauna/Hot tub use, Seat Belt use, Childbirth classes/Hospital facilities, Travel, Indications for Ultrasound and Screening for Aneuploidy; Discussed Second Trimester Second Trimester: Signs and Symptoms of Labor, Selecting a care provider, Reproductive Life Planning & Contreception, Care Planning and Intimate Partner Violence; Discussed Tobacco Cessation and Discussed Depression/Anxiety Third Trimester Third Trimester: Pain Management Plans, Labor support person(s), Immediate Larc, Signs and Symptoms of Preeclampsia, Infant Feeding No , [place] Education and Family Medical Leave or Disability Forms ROS Const Reports system reviewed and no additional complaints, except as documented GI Denies abdominal pain, Denies nausea and Denies vomiting Exam Const General: cooperative Nutritional Appearance: well nourished GI Palpation: soft, nontender and other (gravid) Results POC Urinalysis 2 Dip (Clinic) Office Urine Glucose Negative Last Edit by Neela Tristan on 11/02/24 08 :33 Office Urine Protein Trace Last Edit by Neela Tristan on 11/02/24 08:33 Coding Level of Care Code OB Routine Diagnoses Supervision of high risk in second trimester O09.92 Trimester: second trimester 20 weeks gestation of Z3A.20 Weeks of gestation: 20 weeks H/O hemorrhage, currently O09.299 Obesity affecting in second trimester, unspecified obesity type O99.212 Trimester: second trimester Obesity type affecting : unspecified obesity Previous section Z98.891 headache in second trimester O26.892; R51.9 Trimester: second trimester Low lying placenta, antepartum O44.40 Assessment and Plan Assessment and Plan (1) Supervision of high-risk : Status: Acute Qualifiers: Trimester: second trimester Qualified Code(s): O09.92 - Supervision of high risk , unspecified, second trimester Comment: PRR, , FLOR 03/09/25, PC Paige, Alberto (2) : Status: Acute Qualifiers: Weeks of gestation: 20 weeks Qualified Code(s): Z3A.20 - 20 weeks gestation of Comment: discussed NIPT & Carrier testing-declined;Rpt anatomy 2wk to complete (3) H/O hemorrhage, currently : Status: Acute (4) Obesity affecting : Status: Acute Qualifiers: Trimester: second trimester Obesity type affecting : unspecified obesity Qualified Code(s): O99.212 - Obesity complicating , second trimester Comment: HGBA1c (5) Previous section: Status: Acute Comment: desires repeat (6) Headache in : Status: Acute Qualifiers: Trimester: second trimester Qualified Code(s): O26.892 - Other specified related conditions, second trimester; R51.9 - Headache, unspecified Comment: 2 events, vision changes. this occurred last also. Labs. (7) Low lying placenta, antepartum: Status: Acute Comment: Rpt US 28 wk Orders: Orders POC Urinalysis 2 Dip (Clinic) Today CBC W/Diff, Automated Today O26.899 - Other specified related conditions, unspecified trimester, R51.9 - Headache, unspecified Comprehensive Metabolic Profil Today O26.899 - Other specified related conditions, unspecified trimester, R51.9 - Headache, unspecified Protein+Creatinine Ratio,Urine Today O26.899 - Other specified related conditions, unspecified trimester, R51.9 - Headache, unspecified, R80.9 - Proteinuria, unspecified Plan problem list reviewed and updated for most current plan of care and appropriate orders placed. Relevant counseling for the gestational age appropriate provided and ACOG education checklist updated. Continue routine care and follow up. 11/02/24 0836 <Electronically signed by Liane sunshine NP [facility]> Date _ Liane Archer NP [facility] [employer] Cosigner Signature: Date (if applicable) CC: ~ [facility] Work Phone: Progress note Author Kavitha Boyer [facility] Note Date/Time November 29, 2024 1 0:04am [facility] [address] [place] [address], [address] [place] [address] OFFICE VISIT Date of Service: 11/29/24 MR#: [id number] Acct: [id number] Name: KARLA DEGROOT Rep #: [id number] : 1995 Provider: MARISOL Boyer Age/Sex: 29/F Location: [facility] Status: Signed Intake Vital Signs 11/02/24 08:11 11/29/24 09:48 Height 5 ft 6 in 5 ft 6 in Weight: 219 lb 5 oz BMI 35.4 BP 113/75 Intake Visit Reasons: 24wk ob *move 01/11 appt Chief Complaint: 24wk OB Bell Person Required: No Is patient in pain?: No Allergies No Known Allergies Allergy (Verified 11/29/24 09:47) Medications ?Medication ?Instructions ?Recorded ?Confirmed ?Type multivit-min no.71-iron fum 28 1 cap PO DAILY pregnanc y 11/26/22 11/29/24 History mg-folate no.1 1 mg-dha 300 mg capsule (PNV-[place]) Last Menstrual Period: 06/02/24 : No Have you fallen in the past year?: No PFSH PFSH Medical History Anemia in preg-unspec Chorioamnionitis, delivered, current hospitalization hemorrhage delivery delivered False labor Abnormal ultrasound Congenital abnormality ureter Surgical History Previous section [place] teeth removed Family History Grandmother Breast cancer, Onset Age: 70 Paternal Thyroid disorder Paternal- hyperthyroid Aunt Cancer, Onset Age: 53 Maternal - thyroid Social History adopted: No household members: spouse housing: house number of children: 1 current occupational status: employed current occupation: [employer] current occupational exposures/hazards: No pets and animals: Yes pets and animals: dog(s) history of recent travel: No sexually active: Yes Smoking Status: Never smoker second hand exposure: No alcohol intake: former year quit: 2019 details: Only social /occasional intake before Quit 4 years ago. 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 Date Name GA/Weeks Outcome Route Bth Weight Gen Labor Lgth Anesthesia Del Locatn Provider FOB 06/21/23 Paige 39 live - full term 6#12 Female [facility] Dr. Hidalgo Delivery Date: 06/21/23 Last Updated by: Yudelka Vance Failed vacuum/chorio. PP hemorrhage, anemia, maternal fever HPI 24wk ob *move 01/11 appt Details: KARLA DEGROOT is a 29 year old who presents for routine OB visit. OB Visit FLOR Calculator Estimated Delivery Date Method Current WG Current Estimate 03/21/25 Ultrasound #1 24w 0d Other Estimates 03/09/25 LMP (Certain) 25w 5d Expected Delivery Route/Plan repeat c/s desired Specific Issue/Plans Covid status: [] Flu vaccine: [] Tdap vaccine: [] Rhogam: [] LARC form signed: [] Problem list reviewed and updated with the most current plan of care details and appropriate orders placed. Relevant counseling for the gestational age provided. Continue routine care and follow up unless otherwise noted in visit notes/problem list details Initial Weight: 226 lb Date -?-?-?-?-?-?-?-?-?-?-?-?- EGA Weight BP Urine Prot -?-?-?-?-?-?-?-?-?-?-?-?- Glucose FHR FuHt Pres Dilation -?-?-?-?-?-?-?-?-?-?-?-?- Effaced St Visit Note 08/05/24 -?-?-?-?-?-?-?-?-?-?-?-?- 7w 3d 226 lb (+0 oz) 123/73 -?-?-?-?-?-?-?-?-?-?-?-?- 158 -?-?-?-?-?-?-?-?-?-?-?-?- KW- CRL not cons with dates. 1.17cm-7.2 weeks. Said she ovulated late with her last cycle. declines NIPT. will likely want R C/S 09/06/24 -?-?-?-?-?-?-?-?-?-?-?-?- 12w 0d 222 lb 4 oz (-3 lb 12 oz) 139/84 -?-?-?-?-?-?-?-?-?-?-?-?- 155 -?-?-?-?-?-?-?-?-?-?-?-?- SM- no vb lof la bs today 10/05/24 -?-?-?-?-?-?-?-?-?-?-?-?- 16w 1d 220 lb 9.6 oz (-5 lb 6.4 oz) 134/76 Negative -?-?-?-?-?-?-?-?-?-?-?-?- Negative 154 -?-?-?-?-?-?-?-?-?-?-?-?- JV- no lof, vagi nal bleeding, or dec fm. still nauseated. has some low back pain. anatomy scan scheduled 11/0111/02/24 -?--?-?-?-?-?-?-?-?-?-?-?- 20w 1d 220 lb (-6 lb) 119/74 Trace -?-?-?-?-?-?-?-?-?-?-?-?- Negative 149 -?-?-?-?-?-?-?-?-?-?-?-?- MH-No VB. Feelin g movement. Has had 2 episodes of headache w vision changes. Had occular migraine with last . Labs ordered. Call with recurrence. Reviewed MFM US: low lying placenta. 11/29/24 -?-?-?-?-?-?-?-?-?-?-?-?- 24w 0d 219 lb 5 oz (-6 lb 11 oz) 113/75 Negative -?-?-?-?-?-?-?-?-?-?-?-?- Negative 151 -?-?-?-?-?-?-?-?-?-?-?-?- KW- no vb/lof/ct x. good fm. 28 week labs discussed. ACOG First Trimester First Trimester: Desire for , Alcohol, Tobacco Cessation, Illicit/Recreational Drug/Substance Use, Intimate Partner Violence, Barriers to care, Unstable Housing, Communication Barriers, Environmental/Work Hazards, Anticipated Course of Care, Toxoplasmosis Precations, Use of Any medications, Sexual activity, Exercise, Dental Care, Sauna/Hot tub use, Seat Belt use, Childbirth classes/Hospital facilities, Travel, Indications for Ultrasound and Screening for Aneuploidy; Discussed Second Trimester Second Trimester: Signs and Symptoms of Labor, Selecting a care provider, Reproductive Life Planning & Contreception, Care Planning and Intimate Partner Violence; Discussed Tobacco Cessation and Discussed Depression/Anxiety Third Trimester Third Trimester: Pain Management Plans, Labor support person(s), Immediate Larc, Signs and Symptoms of Preeclampsia, Infant Feeding No , Education and Family Medical Leave or Disability Forms ROS Const Reports system reviewed and no additional complaints, except as documented Eyes Reports system reviewed and no additional complaints, except as documented ENT Reports system reviewed and no additional complaints, except as documented Card Reports system reviewed and no additional complaints, except as documented Resp Reports system reviewed and no additional complaints, except as documented GI Reports system reviewed and no additional complaints, except as documented, Denies nausea and Denies vomiting Reports system reviewed and no additional complaints, except as documented Musc Reports system reviewed and no additional complaints, except as documented Skin/Breast Reports system reviewed and no additional complaints, except as documented Neuro Yes system reviewed and no additional complaints, except as documented Psych Reports system reviewed and no additional complaints, except as documented Endo Reports system reviewed and no additional complaints, except as documented Yobany/Lymph Reports system reviewed and no additional complaints, except as documented Aller/Immun Reports system reviewed and no additional complaints, except as documented Exam Const General: cooperative, healthy appearing and no acute distress Orientation: alert, awake and oriented x3 Neck Neck: normal visual inspection and full ROM Resp Effort & Inspection: normal respiratory effort, able to speak in complete sentences and symmetric chest movement GI Inspection: normal to inspection Palpation: soft and other Other: gravid Skin General: no rashes or lesions noted Neuro General: patient alert, patient awake and patient oriented x3 Cognition: normal cognition Speech: speech normal Gait: normal gait Motor: muscle tone normal throughout Extrem General: normal to inspection and full ROM Psych Appearance: grossly normal Mental Status: mental status grossly normal Mood: congruent mood Affect: normal affect Speech and Movement: speech and movement normal Attitude: cooperative Thought Process: normal Thought Content: normal Judgment: judgment good Results POC Urinalysis 2 Dip (Clinic) Office Urine Glucose Negative Last Edit by Brittany Tavarez on 11/29/24 09:55 Office Urine Protein Negative Last Edit by Brittany Tavarez on 11/29/24 09:55 Coding Level of Care Code OB Routine Diagnoses Low lying placenta, antepartum O44.40 headache in second trimester O26.892; R51.9 Trimester: second trimester H/O hemorrhage, currently O09.299 Supervision of high risk in second trimester O09.92 Trimester: second trimester 24 weeks gestation of Z3A.24 Weeks of gestation: 24 weeks Obesity affecting in second trimester, unspecified obesity type O99.212 Obesity type affecting : unspecified obesity Trimester: second trimester Previous section Z98.891 Assessment and Plan Assessment and Plan (1) Low lying placenta, antepartum: Status: Acute Comment: Rpt US 28 wk (2) Headache in : Status: Acute Qualifiers: Trimester: second trimester Qualified Code(s): O26.892 - Other specified related conditions, second trimester; R51.9 - Headache, unspecified Comment: 2 events, vision changes. this occurred last also. Labs-nl (3) H/O hemorrhage, currently : Status: Acute (4) Supervision of high-risk : Status: Acute Qualifiers: Trimester: second trimester Qualified Code(s): O09.92 - Supervision of high risk , unspecified, second trimester Comment: PRR, , FLOR 03/09/25, PC Paige, Alberto (5) : Status: Acute Qualifiers: Weeks of gestation: 24 weeks Qualified Code(s): Z3A.24 - 24 weeks gestation of Comment: discussed NIPT & Carrier testing-declined;Rpt anatomy 2wk to complete (6) Obesity affecting : Status: Acute Qualifiers: Obesity type affecting : unspecified obesity Trimester: second trimester Qualified Code(s): O99.212 - Obesity complicating , second trimester Comment: HGBA1c (7) Previous section: Status: Acute Comment: desires repeat Orders: Orders POC Urinalysis 2 Dip (Clinic) Today O09.92 - Supervision of high risk , unspecified, second trimester, Z3A.24 - 24 weeks gestation of CBC W/Diff, Automated Today O09.92 - Supervision of high risk , unspecified, second trimester, Z3A.24 - 24 weeks gestation of Glucose Challenge Gest 1H 50g Today O09.92 - Supervision of high risk , unspecified, second trimester, Z13.1 - Encounter for screening for diabetes mellitus, Z3A.24 - 24 weeks gestation of HIV Today O09.92 - Supervision of high risk , unspecified, second trimester, Z3A.24 - 24 weeks gestation of Syphilis Antibodies Today O09.92 - Supervision of high risk , unspecified, second trimester, Z3A.24 - 24 weeks gestation of Plan Details Additional Comments: ACOG trimester education reviewed and updated. see problem list details for updated plan management information and see below for orders placed at this visit. GA appropriate handout given. Follow Up: 4 Weeks (repeat c/s- doc only ) Clinical Quality Measures Falls Risk Screening/Assistive Devices Have you fallen in the past year?: No 11/29/24 1004 <Electronically signed by Kavitha sunshine CNM> Date _ Kavitha Boyer CNM Cosigner Signature: Date (if applicable) CC: ~ [facility] Work Phone: Reason for referral (narrative)No reason for referral information availableBlS[facility] Work Phone: Summary Purpose Family History Relationship Condition Age at Onset Recorded Date/T hien grandmother Malignant neoplasm of breast 70 Disorder of thyroid Unknown aunt Malignant neoplasm Unknown Relationship Condition Age at Onset Recorded Date/T hien grandmother Malignant neoplasm of breast 70 Disorder of thyroid Unknown aunt Malignant neoplasm 53 Advance Directives Advance Directive Response Recorded Date/ Time Living Will No September 20, 2020 4:48pm Power of Supervisor Audit Clerks No September 20 4:48pm Advance Directive Response Recorded Date/ Time Living Will No September 20, 2020 5:48pm Power of Supervisor Audit Clerks No September 20 5:48pm Advance Directive Response Recorded Date/ Time Living Will No June 21, 2023 6: 01am Power of Supervisor Audit Clerks No June 21, 2023 6:01am Medications Administered Section Inactive Administered Medications - up to 3 most recent administrations Medication Order MAR Action Action Date Dose Rate Site acetylcholine 10% solution - cchs compounding 20 mL, IRRIGATION, ONE TIME, 1 dose, Starting on Fri04/13/21 at 1013, Until Fri05/28/21 at 1539, Protect from Light. Refrigerate Given 05/28/2021 3:39 PM EDT 20 mL Chief Complaint and Reason for Visit Chief Complaint 14 WK OB 19 WK OB 23 WK OB 27 WK OB/GLUCOSE Reason for Visit Obesity affecting pr egnancy, antepartum Supervision of normal first Obesity affecting , antepartum Supervision of normal first Abnormal ultrasound Obesity affecting , antepartum Supervision of normal first Abnormal ultrasound Anemia in preg-unspec Obesity affecting , antepartum Supervision of normal first Chief Complaint 19 WK OB 23 WK OB 27 WK OB/GLUCOSE 30 WK OB 32 WK OB 34 WK OB Reason for Visit Obesity affecting pr egnancy, antepartum Supervision of normal first Abnormal ultrasound Obesity affecting , antepartum Supervision of normal first Abnormal ultrasound Anemia in preg-unspec Obesity affecting , antepartum Supervision of normal first Abnormal ultrasound Abnormal glucose complicating childbirth Anemia in preg-unspec Obesity affecting , antepartum Supervision of normal first Abnormal ultrasound Abnormal glucose complicating childbirth Anemia in preg-unspec Obesity affecting , antepartum Supervision of normal first Abnormal ultrasound Abnormal glucose complicating childbirth Anemia in preg-unspec Obesity affecting , antepartum Supervision of normal first Chief Complaint 23 WK OB 27 WK OB/GLUCOSE 30 WK OB 32 WK OB 34 WK OB 36 WK OB Reason for Visit Abnormal ultra sound Obesity affecting , antepartum Supervision of normal first Abnormal ultrasound Anemia in preg-unspec Obesity affecting , antepartum Supervision of normal first Abnormal ultrasound Abnormal glucose complicating childbirth Anemia in preg-unspec Obesity affecting , antepartum Supervision of normal first Abnormal ultrasound Abnormal glucose complicating childbirth Anemia in preg-unspec Obesity affecting , antepartum Supervision of normal first Abnormal ultrasound Abnormal glucose complicating childbirth Anemia in preg-unspec Obesity affecting , antepartum Supervision of normal first Abnormal ultrasound Abnormal glucose complicating childbirth Anemia in preg-unspec Obesity affecting , antepartum Supervision of normal first Chief Complaint 23 WK OB 27 WK OB/GLUCOSE 30 WK OB 32 WK OB 34 WK OB 36 WK OB 37 WK OB 38 WK OB 39 WK OB MOVEMENT MOVEMENT Reason for Visit Abnormal ultra sound Obesity affecting , antepartum Supervision of normal first Abnormal ultrasound Anemia in preg-unspec Obesity affecting , antepartum Supervision of normal first Abnormal ultrasound Abnormal glucose complicating childbirth Anemia in preg-unspec Obesity affecting , antepartum Supervision of normal first Abnormal ultrasound Abnormal glucose complicating childbirth Anemia in preg-unspec Obesity affecting , antepartum Supervision of normal first Abnormal ultrasound Abnormal glucose complicating childbirth Anemia in preg-unspec Obesity affecting , antepartum Supervision of normal first Abnormal ultrasound Abnormal glucose complicating childbirth Anemia in preg-unspec Obesity affecting , antepartum Supervision of normal first Abnormal ultrasound Abnormal glucose complicating childbirth Anemia in preg-unspec Obesity affecting , antepartum Supervision of normal first Abnormal ultrasound Abnormal glucose complicating childbirth Anemia in preg-unspec Obesity affecting , antepartum Supervision of normal first Abnormal ultrasound Abnormal glucose complicating childbirth Anemia in preg-unspec Obesity affecting , antepartum Supervision of normal first Chief Complaint 23 WK OB 27 WK OB/GLUCOSE 30 WK OB 32 WK OB 34 WK OB 36 WK OB 37 WK OB 38 WK OB 39 WK OB MOVEMENT MOVEMENT ROLL OUT LABOR Reason for Visit Abnormal ultra sound Obesity affecting , antepartum Supervision of normal first Abnormal ultrasound Anemia in preg-unspec Obesity affecting , antepartum Supervision of normal first Abnormal ultrasound Abnormal glucose complicating childbirth Anemia in preg-unspec Obesity affecting , antepartum Supervision of normal first Abnormal ultrasound Abnormal glucose complicating childbirth Anemia in preg-unspec Obesity affecting , antepartum Supervision of normal first Abnormal ultrasound Abnormal glucose complicating childbirth Anemia in preg-unspec Obesity affecting , antepartum Supervision of normal first Abnormal ultrasound Abnormal glucose complicating childbirth Anemia in preg-unspec Obesity affecting , antepartum Supervision of normal first Abnormal ultrasound Abnormal glucose complicating childbirth Anemia in preg-unspec Obesity affecting , antepartum Supervision of normal first Abnormal ultrasound Abnormal glucose complicating childbirth Anemia in preg-unspec Obesity affecting , antepartum Supervision of normal first Abnormal ultrasound Abnormal glucose complicating childbirth Anemia in preg-unspec Obesity affecting , antepartum Supervision of normal first Chief Complaint 23 WK OB 27 WK OB/GLUCOSE 30 WK OB 32 WK OB 34 WK OB 36 WK OB 37 WK OB 38 WK OB 39 WK OB MOVEMENT MOVEMENT ROLL OUT LABOR ROLL OUT LABOR PRIMARY PRIMARY PRIMARY PRIMARY Reason for Visit Supervision of normal first Anemia in preg-unspec Supervision of normal first Anemia in preg-unspec Supervision of normal first Anemia in preg-unspec Supervision of normal first Anemia in preg-unspec Supervision of normal first Anemia in preg-unspec Supervision of normal first Anemia in preg-unspec Supervision of normal first Anemia in preg-unspec Supervision of normal first Anemia in preg-unspec Supervision of normal first Anemia in preg-unspec delivery delivered Chorioamnionitis, delivered, current hospitalization hemorrhage Supervision of normal first Chief Complaint Admit Date *EST* NOB LMP 06/02, FLOR 03/09August 05, 2024 10:36am Reason for Visit Admit Date H/O hemorrhage, currently pre gnant August 05, 2024 10:36am Obesity affecting August 05 10:36am August 05, 2024 10:3 6am Previous section August 05 10:36am Supervision of high-risk August 05, 2024 10:36am Chief Complaint Admit Date *EST* NOB LMP 06/02, FLOR 03/09August 05, 2024 10:36am 11wk OB September 06, 2024 8:24 am Reason for Visit Admit Date H/O hemorrhage, currently pre gnant August 05, 2024 10:36am Obesity affecting August 05 025 10:36am August 05, 2024 10:3 6am Previous section August 05 10:36am Supervision of high-risk August 05, 2024 10:36am H/O hemorrhage, currently pre gnant September 06, 2024 8:24am Obesity affecting September 06, 025 8:24am September 06, 2024 8:24 am Previous section September 06 8:24am Supervision of high-risk September 06, 2024 8:24am Chief Complaint Admit Date *EST* NOB LMP 4/16, FLOR 03/09August 05, 2024 10:36am 11wk OB September 06, 2024 8:24 am 16wk ob October 05, 2024 9: 11am Reason for Visit Admit Date H/O hemorrhage, currently pre gnant August 05, 2024 10:36am Obesity affecting August 05 10:36am August 05, 2024 10:3 6am Previous section August 05 10:36am Supervision of high-risk August 05, 2024 10:36am H/O hemorrhage, currently pre gnant September 06, 2024 8:24am Obesity affecting September 06 8:24am September 06, 2024 8:24 am Previous section September 06 8:24am Supervision of high-risk September 06, 2024 8:24am H/O hemorrhage, currently pre gnant October 05, 2024 9:11am Obesity affecting October 05, 2024 9:11am October 05, 2024 9: 11am Previous section October 05 9:11am Supervision of high-risk Augus t 2024 9:11am Chief Complaint Admit Date *EST* NOB LMP 4/16, FLOR 03/09August 05, 2024 10:36am 11wk OB September 06, 2024 8:24 am 16wk ob October 05, 2024 9: 11am 20wk ob November 02, 2024 8:04am Reason for Visit Admit Date H/O hemorrhage, currently pre gnant August 05, 2024 10:36am Obesity affecting August 05 025 10:36am August 05, 2024 10:3 6am Previous section August 05 10:36am Supervision of high-risk August 05, 2024 10:36am H/O hemorrhage, currently pre gnant September 06, 2024 8:24am Obesity affecting September 06, 2 025 8:24am September 06, 2024 8:24 am Previous section September 06 8:24am Supervision of high-risk September 06, 2024 8:24am H/O hemorrhage, currently pre gnant October 05, 2024 9:11am Obesity affecting October 05, 2024 9:11am October 05, 2024 9: 11am Previous section October 05, 2 025 9:11am Supervision of high-risk Augus t 2024 9:11am H/O hemorrhage, currently pre gnant November 02, 2024 8:04am Headache in November 02 8:04am Low lying placenta, antepartum November 02, 2024 8:04am Obesity affecting November 022024 8:04am November 02, 2024 8:04am Previous section October 8:04am Supervision of high-risk [place] mber 2024 8:04am Chief Complaint Admit Date 11wk OB September 06, 2024 8:24 am 16wk ob October 05, 2024 9: 11am 20wk ob November 02, 2024 8:04am 24wk ob *move 01/11 appt November 29 2 025 9:45am Reason for Visit Admit Date H/O hemorrhage, currently pre gnant September 06, 2024 8:24am Obesity affecting September 06 025 8:24am September 06, 2024 8:24 am Previous section September 06 8:24am Supervision of high-risk September 06, 2024 8:24am H/O hemorrhage, currently pre gnant October 05, 2024 9:11am Obesity affecting October 05, 2024 9:11am October 05, 2024 9: 11am Previous section October 05, 2 025 9:11am Supervision of high-risk Augus t 2024 9:11am H/O hemorrhage, currently pre gnant November 02, 2024 8:04am Headache in November 02 8:04am Low lying placenta, antepartum November 02, 2024 8:04am Obesity affecting November 022024 8:04am November 02, 2024 8:04am Previous section October 8:04am Supervision of high-risk Andre mber 2024 8:04am H/O hemorrhage, currently pre gnant November 29, 2024 9:45am Headache in November 29, 2024 9:45am Low lying placenta, antepartum November 17, 2024 9:45am Obesity affecting November 9:45am November 29, 2024 9 :45am Previous section November 29, 2024 9:45am Supervision of high-risk Octob er 2024 9:45am Additional Source Comments INFORMATION SOURCE (unrecogn ized section and content) DATE CREATED AUTHOR 08/08/2017 [facility] DATE CREATED AUTHOR AUTHOR'S ORGANIZ ATION 08/11/2017 [facility] DATE CREATED AUTHOR AUTHOR'S ORGANIZ ATION 08/12/2017 [facility] DATE CREATED AUTHOR AUTHOR'S ORGANIZ ATION 07/18/2021 [facility] DATE CREATED AUTHOR AUTHOR'S ORGANIZ ATION 11/21/2024 [facility] DATE CREATED AUTHOR AUTHOR'S ORGANIZ ATION 11/30/2024 [facility] Source Comments (unrecognize d section and content) In the event this informatio n is protected by the Federal Confidentiality of Alcohol and Drug Abuse Patient Records regulations: The Federal rules restrict any use of the information to criminally investigate or prosecute any alcohol or drug abuse patient.[facility] the event this information is protected by the Federal Confidentiality of Alcohol and Drug Abuse Patient Records regulations: The Federal rules restrict any use of the information to criminally investigate or prosecute any alcohol or drug abuse patient.[facility] the event this information is protected by the Federal Confidentiality of Alcohol and Drug Abuse Patient Records regulations: The Federal rules restrict any use of the information to criminally investigate or prosecute any alcohol or drug abuse patient.[facility] Reason for Visit (unrecogniz ed section and content) Reason Comments Procedure Specialty Diagnoses / Procedures Referred By Cha owens Referred To Contact Neurology / NEUROMUSCULAR Diagnoses Encounter for general adult medical examination without abnormal findings VM QSARt Procedures TESTING AUTONOMIC NERVOUS SYSTEM FUNCTION NEUR QSART Yareli Lemus MD [address] [place] [address] [facility] [address] [place] [address] Referral ID Status Reason Start Date Expiration Date Visits Requested Visits Authorized [id number] Authorized Clearance Not Met - Admin/Chairm an/Director Advise to Postpone/Res chedule or Not Proceed 04/18/2021 05/08/2022 4 4 Care Teams (unrecognized sec tion and content) Glue Mill Operator Relationship Specialty Start Date End Date Wanda Fritz [id number] [place] [address] PCP - General Pediatrics 01/21/17 Glue Mill Operator Relationship Specialty Start Date End Date Wanda Fritz [id number] [place], [place] [id number] PCP - General Pediatrics 01/21/17 Glue Mill Operator Relationship Specialty Start Date End Date Wanda Fritz [id number] [place] [address] PCP - General Pediatrics 01/21/17 Glue Mill Operator Relationship Specialty Start Date End Date No Primary Care, MD [place] [address] PCP - General Pediatrics 01/30/23 Team Status: Active Member Role Status Dates No Primary Care Physician Family Provider Active No Primary Care Physician Primary Care Provider Active Team Status: Inactive Member Role Status Dates No Primary Care Physician Primary Care Provider, Refer ring Provider Active Dr. Latoya Marquez DO Attending Provider Activ e Team Status: Inactive Member Role Status Dates No Primary Care Physician Primary Care Provider, Refer ring Provider Active Liane Archer JERSEY KNITTER, JERSEY KNITTER-C Attending Provider Active Team Status: Inactive Member Role Status Dates No Primary Care Physician Primary Care Provider Active Dr. Mickie Murray MD Attending Provider, Referr ing Provider Active Team Status: Inactive Member Role Status Dates No Primary Care Physician Primary Care Provider Active Liane Archer JERSEY KNITTER, JERSEY KNITTER-C Attending Provider, Referring Provider Active Team Status: Inactive Member Role Status Dates No Primary Care Physician Primary Care Provider, Refer ring Provider Active Kavitha Boyer CNM Attending Provider Active Team Status: Inactive Member Role Status Dates No Primary Care Physician Primary Care Provider Active Kavitha Boyer CNM Attending Provider, Referring Pro vider Active Team Status: Inactive Member Role Status Dates No Primary Care Physician Primary Care Provider Active Dr. Latoya Marquez DO Attending Provider Activ e Team Status: Inactive Member Role Status Dates No Primary Care Physician Primary Care Provider, Refer ring Provider Active Dr. Mickie Murray MD Attending Provider Active Team Status: Active Member Role Status Dates No Primary Care Physician Primary Care Provider Active Dr. Mickie Murray MD Attending Pr ovider, Referring Provider, Other Provider Active Team Status: Inactive Member Role Status Dates No Primary Care Physician Primary Care Provider Active Trish Beckman CNM Attending Provider Active Team Status: Active Member Role Status Dates No Primary Care Physician Primary Care Provider Active Trish Beckman CNM Attending Provider, Other Provid er Active Team Status: Active Member Role Status Dates No Primary Care Physician Primary Care Provider Active Dr. Latoya Marquez DO Admit Provider, Other Pr ovider Active Trish Beckman CNM Attending Provider Active Team Status: Active Member Role Status Dates No Primary Care Physician Primary Care Provider Active Dr. Latoya Marquez , DO Admit Provider, Other Pr ovider Active Kavitha Boyer CNM Attending Provider Active Team Status: Active Member Role Status Dates No Primary Care Physician Primary Care Provider Active Dr. Latoya Marquez , DO Admit Provider, Other Pr ovider Active Liane Archer [employer], [employer]-C Attending Provider Active Team Status: Inactive Member Role Status Dates No Primary Care Physician Primary Care Provider Active Dr. Latoya Marquez , DO Admit Provider, Attendin g Provider Active Team Status: Inactive Member Role Status Dates No Primary Care Physician Primary Care Provider Active Start: August 05, 2024 End: August 05, 2024 No Primary Care Physician Referring Provider Active Start: August 05, 2024 End: August 05, 2024 Kavitha Boyer CNM Attending Provider Active S tart: August 05, 2024 End: August 05, 2024 Team Status: Inactive Member Role Status Dates No Primary Care Physician Primary Care Provider Active Start: August 05, 2024 End: August 05, 2024 Kavitha Boyer CNM Attending Provider Active S tart: August 05, 2024 End: August 05, 2024 Kavitha Boyer CNM Referring Provider Active S tart: August 05, 2024 End: August 05, 2024 Team Status: Active Member Role/Relationship Status Dates No Primary Care Physician Primary Care Provider Active Team Status: Inactive Member Role/Relationship Status Dates No Primary Care Physician Primary Care Provider Active Start: August 05, 2024 End: August 05, 2024 No Primary Care Physician Referring Provider Active Start: August 05, 2024 End: August 05, 2024 Kavitha Boyer CNM Attending Provider Active S tart: August 05, 2024 End: August 05, 2024 Team Status: Inactive Member Role/Relationship Status Dates No Primary Care Physician Primary Care Provider Active Start: August 05, 2024 End: August 05, 2024 Kavitha Boyer CNM Attending Provider Active S tart: August 05, 2024 End: August 05, 2024 Kavitha Boyer CNM Referring Provider Active S tart: August 05, 2024 End: August 05, 2024 Team Status: Inactive Member Role/Relationship Status Dates No Primary Care Physician Primary Care Provider Active Start: September 06, 2024 End: September 06, 2024 No Primary Care Physician Referring Provider Active Start: September 06, 2024 End: September 06, 2024 Dr. Mickie Murray MD Attending Provider Active Start: September 06, 2024 End: September 06, 2024 Team Status: Active Member Role/Relationship Status Dates No Primary Care Physician Primary Care Provider Active Start: September 06, 2024 Dr. Latoya Marquez , Attending Provider Activ e Start: September 06, 2024 Team Status: Inactive Member Role/Relationship Status Dates No Primary Care Physician Primary Care Provider Active Start: September 06, 2024 End: September 06, 2024 Dr. Latoya Marquez DO Attending Provider Activ e Start: September 06, 2024 End: September 06, 2024 Team Status: Inactive Member Role/Relationship Status Dates No Primary Care Physician Primary Care Provider Active Start: October 05, 2024 End: October 05, 2024 No Primary Care Physician Referring Provider Active Start: October 05, 2024 End: October 05, 2024 Dr. Latoya Marquez DO Attending Provider Activ e Start: October 05, 2024 End: October 05, 2024 Team Status: Inactive Member Role/Relationship Status Dates No Primary Care Physician Primary Care Provider Active Start: November 02, 2024 End: November 02, 2024 No Primary Care Physician Referring Provider Active Start: November 02, 2024 End: November 02, 2024 Liane Archer [employer], [employer]-C Attending Provider Active Start: November 02, 2024 End: November 02, 2024 Team Status: Active Member Role/Relationship Status Dates No Primary Care Physician Primary Care Provider Active Start: November 02, 2024 Liane Archer [employer], [employer]-C Attending Provider Active Start: November 02, 2024 Liane Archer [employer], [employer]-C Referring Provider Active Start: November 02, 2024 Team Status: Active Member Role/Relationship Status Dates No Primary Care Physician Primary care physician Activ e Team Status: Inactive Member Role/Relationship Status Dates No Primary Care Physician Primary care physician Activ e Start: August 05, 2024 End: August 05, 2024 No Primary Care Physician Referring Provider Active Start: August 05, 2024 End: August 05, 2024 Kavitha Boyer CNM Attending physician Active Start: August 05, 2024 End: August 05, 2024 Team Status: Inactive Member Role/Relationship Status Dates No Primary Care Physician Primary care physician Activ e Start: August 05, 2024 End: August 05, 2024 Kavitha Boyer CNM Attending physician Active Start: August 05, 2024 End: August 05, 2024 Kavitha Boyer CNM Referring Provider Active S tart: August 05, 2024 End: August 05, 2024 Team Status: Inactive Member Role/Relationship Status Dates No Primary Care Physician Primary care physician Activ e Start: September 06, 2024 End: September 06, 2024 No Primary Care Physician Referring Provider Active Start: September 06, 2024 End: September 06, 2024 Dr. Mickie Murray MD Attending physician Active Start: September 06, 2024 End: September 06, 2024 Team Status: Inactive Member Role/Relationship Status Dates No Primary Care Physician Primary care physician Activ e Start: September 06, 2024 End: September 06, 2024 Dr. Latoya Marquez DO Attending physician Acti ve Start: September 06, 2024 End: September 06, 2024 Team Status: Inactive Member Role/Relationship Status Dates No Primary Care Physician Primary care physician Activ e Start: October 05, 2024 End: October 05, 2024 No Primary Care Physician Referring Provider Active Start: October 05, 2024 End: October 05, 2024 Dr. Latoya Marquez DO Attending physician Acti ve Start: October 05, 2024 End: October 05, 2024 Team Status: Inactive Member Role/Relationship Status Dates No Primary Care Physician Primary care physician Activ e Start: November 02, 2024 End: November 02, 2024 No Primary Care Physician Referring Provider Active Start: November 02, 2024 End: November 02, 2024 Liane Archer [employer] K[employer], [employer]-C Attending physician Active Start: November 02, 2024 End: November 02, 2024 Team Status: Inactive Member Role/Relationship Status Dates No Primary Care Physician Primary care physician Activ e Start: November 02, 2024 End: November 02, 2024 Liane Archer NP, [employer]-C Attending physician Active Start: November 02, 2024 End: November 02, 2024 Liane Archer [employer] K[employer], [employer]-C Referring Provider Active Start: November 02, 2024 End: November 02, 2024 Team Status: Inactive Member Role/Relationship Status Dates No Primary Care Physician Primary care physician Activ e Start: September 06, 2024 End: September 06, 2024 No Primary Care Physician Referring Provider Active Start: September 06, 2024 End: September 06, 2024 Dr. Mickie Murray MD Attending physician Active Start: September 06, 2024 End: September 06, 2024 Team Status: Inactive Member Role/Relationship Status Dates No Primary Care Physician Primary care physician Activ e Start: September 06, 2024 End: September 06, 2024 Dr. Latoya Marquez , Attending physician Acti ve Start: September 06, 2024 End: September 06, 2024 Team Status: Inactive Member Role/Relationship Status Dates No Primary Care Physician Primary care physician Activ e Start: October 05, 2024 End: October 05, 2024 No Primary Care Physician Referring Provider Active Start: October 05, 2024 End: October 05, 2024 Dr. Latoya Marquez , Attending physician Acti ve Start: October 05, 2024 End: October 05, 2024 Team Status: Inactive Member Role/Relationship Status Dates No Primary Care Physician Primary care physician Activ e Start: November 02, 2024 End: November 02, 2024 No Primary Care Physician Referring Provider Active Start: November 02, 2024 End: November 02, 2024 Liane Archer [employer] K[employer], [employer]-C Attending physician Active Start: November 02, 2024 End: November 02, 2024 Team Status: Inactive Member Role/Relationship Status Dates No Primary Care Physician Primary care physician Activ e Start: November 02, 2024 End: November 02, 2024 Liane Archer [employer] K[employer], [employer]-C Attending physician Active Start: November 02, 2024 End: November 02, 2024 Liane Archer [employer] K[employer]ITTER, [employer]-C Referring Provider Active Start: November 02, 2024 End: November 02, 2024 Team Status: Inactive Member Role/Relationship Status Dates No Primary Care Physician Primary care physician Activ e Start: November 29, 2024 End: November 29, 2024 No Primary Care Physician Referring Provider Active Start: November 29, 2024 End: November 29, 2024 Kavitha Boyer CNM Attending physician Active Start: November 29, 2024 End: November 29, 2024 Goals (unrecognized section and content) Type Care Experience Labor Preferences-CB /BF classes: enclabor support person: Tristanlabor intervention preferences: []pain management options preferred: limited interventioncut cord/dad catch: cordbreastfeeding: yesPP control planned: discusseddiscussed possible routes of delivery and associated risks: []special requests: [] Care Experience repeat c/s desired FOR RECORDS PERTAINING TO PATIENTS WHO ARE [...] BE BASED ON THE PRIMARY CLINICAL RECORDS. [employer] [facility]. provides no warranty or guarantee of the accuracy or completeness of information in this document.
--- OUTSIDE RECORDS SUMMARY | 2025-02-03 18:58 | XMS RPT_ITS | CCD ---
Author Organization [facility] Care Team Providers Care Financial Planning Adviser Name Role Phone LAINEY LEE Unavailable Unavailable [...] Stephen Fritza Ash Primary Care Provider No load builder, Md Primary Care Provider Pattie vailable Care Physician, No Primary Primary Care Provider Unavailable Care Physician, No Primary Referring Provider Un available Dr. Latoya Marquez Attending Provider [phone] Gianni INSTRUCTION LIBRARIAN, INSTRUCTION LIBRARIAN-C Liane Attending Provider [phone] Care Physician, No Primary Primary Care Provider Unavailable Care Physician, No Primary Referring Provider Un available Gianni INSTRUCTION LIBRARIAN, INSTRUCTION LIBRARIAN-C Liane Attending Provider [phone] Latoya Marquez Attending Provider [phone] MARISOL Boyer Attending Provider [phone] Care Physician, No Primary Primary Care Provider Unavailable Care Physician, No Primary Referring Provider Un available Gianni INSTRUCTION LIBRARIAN, INSTRUCTION LIBRARIAN-C Liane Attending Provider [phone] Dr. Mickie Murray Attending Provider [phone] Dr. Mickie Murray Referring Provider [phone] Dr. Mickie Murray Other Provider [phone] MARISOL Beckman Attending Provider [phone] MARISOL Beckman Other Provider Dr. Latoya Marquez Admit Provider Dr. Latoya Marquez Other Provider Care Physician, No Primary Primary Care Provider Unavailable Care Physician, No Primary Referring Provider Un available Kavitha Boyer CNM Attending Provider [phone] Kavitha Boyer CNM Referring Provider [phone] Nolan SENA, Dr. Corado Attending Provider Dr. Latoya Marquez DO Attending Provider Gianni INSTRUCTION LIBRARIAN-CLiane Attending Provider [phone] Gianni INSTRUCTION LIBRARIAN-C, Liane Referring Provider [phone] Care Physician, No Primary Primary Care Physicia n Unavailable Kavitha Boyer CNM Attending Physician [phone] Nolan SENA, Dr. Corado Attending Physician Dr. Latoya Marquez DO Attending Physician Gianni INSTRUCTION LIBRARIAN-CLiane Attending Physician [phone] PRIMARY CARE, MD [...] No Primary Primary Care Unava ilable Gianni INSTRUCTION LIBRARIAN, Liane Attending Unavailable Gianni INSTRUCTION LIBRARIANLiane Referring Unavailable Care Physician, No Primary Primary Care Physicia n Unavailable Care Physician, No Primary Referring Provider Un available Kavitha Boyer CNM Attending Physician Medications Current Medications Medication Drug Class(es) Dates Sig (Normalized) Sig (Original) Mv-Mins 14-Aurz-Sbefi No.1-Dha (Pnv-Standish) 28-1-300 mg capsule (14 sources) Start: 11-26-2022 Mv-Mins 39-Yxfi-Catfg No.1-Dha (Pnv-Standish) 28-1-300 mg capsule Active 1 NMA PO DAILY November 26, 2022 12:00am Complies with drug therapy Start: 11-26-2022 Start: 11-26-2022 Mv-Mins 71-Iro n-Folic No.1-Dha (Pnv-Standish) 28-1-300 mg capsule Active 1 NMA PO DAILY November 26, 2022 12:00am Start: 11-26-2022 Mv-Mins 71-Iro n-Folic No.1-Dha (Pnv-Standish) 28-1-300 mg capsule Active 1 NMA PO DAILY November 26, 2022 12:00am Start: 11-26-2022 take 1 capsule by mo ut once daily Mv-Mins 29-Ahdn-Rjldv No.1-Dha (Pnv-Standish) 28-1-300 mg capsule Active 1 CAP PO DAILY November 26, 2022 12:00am Start: 11-26-2022 take 1 capsule by mouth once M v-Mins 60-Mpsw-Ummah No.1-Dha (Pnv-Standish) 28-1-300 mg capsule Active CAP PO November 26, 2022 12:00am Start: 11-26-2022 take 1 capsule by mouth once M v-Mins 31-Yjfh-Toory No.1-Dha (Pnv-Standish) 28-1-300 mg capsule Active CAP PO November [...] 2023 12:00am July 08, 2023 11:04am nystatin [id number] unt/ml topical cream (8 sources) Polyene Antifungal [...] unspecified trimester] 01-30-2023 Episodic Comment on above: [id number], FLOR 06/22/23, girl Paige Alberto discussed NIPT [...] Onset: 04-29-2017 Unclassified (1 source) Encntr for kitman exam (general) (routine) w/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 / [...] 02-06-2017 Episodic Unclassified (1 source) Encntr for kitman exam (general) (routine) w/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; Translations: [Encntr for kitman exam (general) (routine) w/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] Onset: 02-06-2017 NEGATED: Highlighted row has been ruled out!Unclassified (1 source) No known active problems 03-05-2023 Results Test Name Value Interpretation Reference Range Facil ity Laboratory - Chemistry and C hemistry - challengeOrdered By: Kavitha Boyer on 11-29-2024 Glucose Ql (U) Negative [facility] Laboratory - UrinalysisOrder ed By: Kavitha Boyer on 11-29-2024 Protein Ql (U) Negative [facility] Senior Talent Acquisition Specialist Office Visit Reporton 11-29-2024 Senior Talent Acquisition Specialist Office Visit Report [facility] [address], [address] [place] [address] OFFICE VISIT Date of Service: 11/29/24 MR#: [id number] Acct: [id number] Name: KARLA DEGROOT Rep #: [id number] : 1995 Provider: MARISOL Durham ams Age/Sex: 29/F Location: [facility] Status: Signed Intake Vital Signs 11/02/24 08:11 11/29/24 09:48 Height 5 ft 6 in 5 ft 6 in Weight: 219 lb 5 oz BMI 35.4 BP 113/75 Intake Visit Reasons: 24wk ob *move 01/11 appt Chief Complaint: 24wk OB Human Factors Ergonomist Required: No Is patient in pain?: No Allergies No Known Allergies Allergy (Verified 11/29/24 09:47) Medications ???Medication ???Instructions ???Recorded ???Confirmed ???Type multivit-min no.71-iron fum 28 1 cap PO DAILY 11/26/22 11/29/24 History mg-folate no.1 1 mg-dha 300 mg capsule (PNV-Standish) Last Menstrual Period: 06/02/24 : No Have you fallen in the past year?: No PFSH PFSH Medical History Anemia in preg-unspec Chorioamnionitis, delivered, current hospitalization hemorrhage delivery delivered False labor Abnormal ultrasound Congenital abnormality ureter Surgical History Previous section [place] teeth removed Family History Grandmother Breast cancer, Onset Age: 70 Paternal Thyroid disorder Paternal- hyperthyroid Aunt Cancer, Onset Age: 53 Maternal - thyroid Social History adopted: No household members: spouse housing: house number of children: 1 current occupational status: employed current occupation: [employer] current occupational exposures/hazards: No pets and animals: [...] frequency: does not exercise duration: 45-60 minutes/day tez/sikhism: None seatbelt use: always do you feel safe at home: Yes 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 Date Name GA/Weeks Outcome Route Bth Weight Infant Gen Labor Lgth Anesthesia Del Locatn Provider FOB 06/21/23 Paige 39 live - full term 6#12 Female [facility] Dr Ramya Hidalgo Delivery Date: 06/21/23 Last [...] lb 9.6 (more content not included)... Normal [facility] Absolute lymphocyte countOrd ered By: Liane Archer on 11-02-2024 Lymphocytes Auto (Unsp spec) [#/Vol] 1.92 10*3/uL 0.83-4.51 [facility] Absolute neutrophil countOrd ered By: Liane Archer on 11-02-2024 Neutrophils (Bld) [#/Vol] 5.5 10*3/uL 2.0-7.7 [facility] Anion gap in Serum or Plasma Ordered By: Liane Archer on 11-02-2024 Anion gap [Moles/Vol] 12 mmol/L 5-15 [facility] Automated lymphocyte count a s percentage of total leukocytesOrdered By: Liane Archer on 11-02-2024 Lymphocytes/100 WBC Auto (Unsp spec) 23.9 % 19-41 [facility] BUN/creatinine ratioOrdered By: Liane Archer on 11-02-2024 Urea nitrogen/Creatinine [Mass ratio] 11.8 mg/mg 10-20 [facility] Basophil percentageOrdered B y: Liane Archer on 11-02-2024 Basophils/100 WBC (Bld) 0.5 % 0-1 [place] Bilirubin, totalOrdered By: Liane Archer on 11-02-2024 Bilirubin [Mass/Vol] 0.21 mg/dL 0.00-1.30 [facility] CBC W/Diff, Automatedon 10-18 Absolute Lymph 1.92 X10 3/uL Normal 0.83-4.51 [facility] Comment on above: Performed By: #### L 501.0900, L500.4050, L100.0100 ####[facility] [address] [place], [address] Absolute Neut 5.5 X10 3/uL Normal 2.0-7.7 [facility] Comment on above: Performed By: #### L 501.0900, L500.4050, L100.0100 ####[facility] [address] [place], [address] Basophils/100 WBC (Bld) 0.5 % Normal 0-1 [facility] [place] Comment on above: Performed By: #### L 501.0900, L500.4050, L100.0100 ####[facility] [address] [place], [address] Eosinophils/100 WBC (Bld) 1.4 % Normal 0-5 [facility] Comment on above: Performed By: #### L 501.0900, L500.4050, L100.0100 ####[facility] [address] [place], [address] Erythrocyte distribution width (RBC) [Ratio] 13.2 % Normal 11.6-14.6 [facility] Comment on above: Performed By: #### L 501.0900, L500.4050, L100.0100 ####[facility] [address] [place], [address] Hematocrit (Bld) [Volume fraction] 31.8 % Low 37-47 [facility] Comment on above: Performed By: #### L 501.0900, L500.4050, L100.0100 ####[facility] [address] [place], [address] Hemoglobin (Bld) [Mass/Vol] 10.9 g/dL Low 12.0-15.0 [facility] Comment on above: Performed By: #### L 501.0900, L500.4050, L100.0100 ####[facility] [address] [place], [address] IG% 0.500 Normal 0.0-0.9 [facility] Comment on above: Result Comment: IG% - Immature Granulocytes (promyelocytes, myelocytes and metamyelocytes) > 1% indicates that a LEFT SHIFT is Present. Performed By: #### L 501.0900, L500.4050, L100.0100 ####[facility] [address] [place], [address] Lymphocytes/100 WBC (Bld) 23.9 % Normal 19-41 [facility] Comment on above: Performed By: #### L 501.0900, L500.4050, L100.0100 ####[facility] [address] [place], [address] MCH (RBC) [Entitic mass] 30.3 pg Normal 27.0-32.0 [facility] Comment on above: Performed By: #### L 501.0900, L500.4050, L100.0100 ####[facility] [address] [place], [address] MCHC (RBC) [Mass/Vol] 34.3 g/dL Normal 32-36 [facility] Comment on above: Performed By: #### L 501.0900, L500.4050, L100.0100 ####[facility] [address] [place], [address] MCV (RBC) [Entitic vol] 88.3 fL Normal 81-99 [facility] Comment on above: Performed By: #### L 501.0900, L500.4050, L100.0100 ####[facility] [address] [place], [address] Monocytes/100 WBC (Bld) 5.5 % Normal 0-10 [facility] [place] Comment on above: Performed By: #### L 501.0900, L500.4050, L100.0100 ####[facility] [address] [place], [address] Neutrophils/100 WBC (Bld) 68.2 % Normal 47-70 [facility] Comment on above: Performed By: #### L 501.0900, L500.4050, L100.0100 ####[facility] [address] [place], [address] Nucleated RBC (Bld) [#/Vol] 0 10*3/uL Normal 0-5 [facility] Comment on above: Performed By: #### L 501.0900, L500.4050, L100.0100 ####[facility] [address] [place], [address] Platelet mean volume (Bld) [Entitic vol] 10.5 fL Normal 6.2-12.0 [facility] Comment on above: Performed By: #### L 501.0900, L500.4050, L100.0100 ####[facility] [address] [place], [address] Platelets (Bld) [#/Vol] 265 10*3/uL Normal 150-450 [facility] Comment on above: Performed By: #### L 501.0900, L500.4050, L100.0100 ####[facility] [address] [place], [address] RBC (Bld) [#/Vol] 3.60 10*6/uL Low 4.2-5.4 [facility] Comment on above: Performed By: #### L 501.0900, L500.4050, L100.0100 ####[facility] [address] [place], [address] RDW SD 42.5 fl Normal 35.1-43.9 [facility] Comment on above: Performed By: #### L 501.0900, L500.4050, L100.0100 ####[facility] [address] [place], [address] WBC (Bld) [#/Vol] 8.0 10*3/uL Normal 4.4-11.0 [facility] Comment on above: Performed By: #### L 501.0900, L500.4050, L100.0100 ####[facility] [address] [place], [address] Carbon dioxide, total [Moles /volume] in Central venous bloodOrdered By: Liane Archer on 11-02-2024 CO2 [Moles/Vol] 18.6 mmol/L Low 21.0-32.0 [facility] Chloride assayOrdered By: Charlie Archer on 11-02-2024 Chloride [Moles/Vol] 106 mmol/L 98-108 [facility] Comprehensive Metabolic Prof ilon 11-02-2024 Albumin [Mass/Vol] 3.8 g/dL Normal 3.5-5.0 [facility] Comment on above: Performed By: #### L 501.0900, L500.4050, L100.0100 ####[facility] [address] [place], [address] Albumin/Globulin [Mass ratio] 1.4 {ratio} Normal 0.9-2.4 [facility] Comment on above: Performed By: #### L 501.0900, L500.4050, L100.0100 ####[facility] [address] [place], [address] ALK PHOS 41 U/L Normal 35-104 [facility] Comment on above: Performed By: #### L 501.0900, L500.4050, L100.0100 ####[facility] [address] [place], [address] ALT [Catalytic activity/Vol] 9 U/L Normal <=34 [facility] Comment on above: Performed By: #### L 501.0900, L500.4050, L100.0100 ####[facility] [address] [place], [address] AST [Catalytic activity/Vol] 13 U/L Normal <=31 [facility] Comment on above: Performed By: #### L 501.0900, L500.4050, L100.0100 ####[facility] [address] [place], [address] Bilirubin [Mass/Vol] 0.21 mg/dL Normal 0.00-1.30 [facility] Comment on above: Performed By: #### L 501.0900, L500.4050, L100.0100 ####[facility] [address] [place], [address] BUN/CRE 11.8 RATIO Normal 10-20 [facility] Comment on above: Performed By: #### L 501.0900, L500.4050, L100.0100 ####[facility] [address] [place], [address] Calcium [Mass/Vol] 9.1 mg/dL Normal 7.6-11.0 [facility] Comment on above: Performed By: #### L 501.0900, L500.4050, L100.0100 ####[facility] [address] [place], [address] Chloride [Moles/Vol] 106 mmol/L Normal 98-108 [facility] Comment on above: Performed By: #### L 501.0900, L500.4050, L100.0100 ####[facility] [address] [place], [address] CO2 [Moles/Vol] 18.6 mmol/L Low 21.0-32.0 [facility] Comment on above: Performed By: #### L 501.0900, L500.4050, L100.0100 ####[facility] [address] [place], [address] Creatinine [Mass/Vol] 0.49 mg/dL Low 0.70-1.20 [facility] Comment on above: Performed By: #### L 501.0900, L500.4050, L100.0100 ####[facility] [address] [place], [address] GAP 12 Normal 5-15 [facility] Comment on above: Performed By: #### L 501.0900, L500.4050, L100.0100 ####[facility] [address] [place], [address] GFR/1.73 sq M.predicted among non-blacks MDRD (S/P/Bld) [Vol rate/Area] 131 mL/min/{1.73_m2} Normal >60 [facility] Comment on above: Result Comment: mL/m in/1.73m2 CKD-EPI Creatinine Equation (2020) Performed By: #### L 501.0900, L500.4050, L100.0100 ####[facility] [address] [place], [address] Globulin (S) [Mass/Vol] 2.7 g/dL Normal 2.2-4.2 [facility] Comment on above: Performed By: #### L 501.0900, L500.4050, L100.0100 ####[facility] [address] [place], [address] Glucose [Mass/Vol] 85 mg/dL Normal 70-99 [facility] Comment on above: Performed By: #### L 501.0900, L500.4050, L100.0100 ####[facility] [address] [place], [address] Potassium [Moles/Vol] 3.8 mmol/L Normal 3.3-5.1 [facility] Comment on above: Performed By: #### L 501.0900, L500.4050, L100.0100 ####[facility] [address] [place], [address] Sodium [Moles/Vol] 136 mmol/L Normal 133-145 [facility] Comment on above: Performed By: #### L 501.0900, L500.4050, L100.0100 ####[facility] [address] [place], [address] T PROT 6.5 g/dL Normal 5.9-8.4 [facility] Comment on above: Performed By: #### L 501.0900, L500.4050, L100.0100 ####[facility] [address] [place], [address] Urea nitrogen [Mass/Vol] 6 mg/dL Normal 4-19 [facility] Comment on above: Performed By: #### L 501.0900, L500.4050, L100.0100 ####[facility] [address] [place], [address] Eosinophil percentageOrdered By: Liane Archer on 11-02-2024 Eosinophils/100 WBC (Bld) 1.4 % 0-5 [facility] Erythrocyte distribution wid th ratioOrdered By: Liane Archer on 11-02-2024 Erythrocyte distribution width (RBC) [Ratio] 13.2 % 11.6-14.6 [facility] Erythrocyte distribution wid th standard deviationOrdered By: Liane Archer on 11-02-2024 Erythrocyte distribution width (RBC) [Ratio] 42.5 fl 35.1-43.9 [facility] Glomerular filtration rate ( GFR) estimation/1.73 sq m using serum, plasma, or whole bOrdered By: Liane Archer on 11-02-2024 GFR/1.73 sq M.predicted among non-blacks MDRD (S/P/Bld) [Vol rate/Area] 131 mL/min/{1.73_m2} >60 [facility] Comment on above: mL/min/1.73m2 CKD-EP I Creatinine Equation (2020) Hematocrit Auto (Bld) [Volum e fraction]Ordered By: Liane Archer on 11-02-2024 Hematocrit (Bld) [Volume fraction] 31.8 % Low 37-47 [facility] Hemoglobin measurementOrdere d By: Liane Archer on 11-02-2024 Hemoglobin (Bld) [Mass/Vol] 10.9 g/dL Low 12.0-15.0 [facility] Immature granulocytes/100 WB C Auto (Bld)Ordered By: Liane Archer on 11-02-2024 Immature granulocytes/100 WBC (Bld) 0.500 % 0.0-0.9 [facility] Comment on above: IG% - Immature Granu locytes (promyelocytes, myelocytes and metamyelocytes) > 1% indicates that a LEFT SHIFT is Present. Laboratory - Chemistry and C hemistry - challengeOrdered By: Liane Archer on 11-02-2024 AST [Catalytic activity/Vol] 13 U/L <32 [facility] Glucose Ql (U) Negative [facility] Laboratory - UrinalysisOrder ed By: Liane Archer on 11-02-2024 Protein Ql (U) Trace [facility] MCV (mean corpuscular volume ) determinationOrdered By: Liane Archer on 11-02-2024 MCV (RBC) [Entitic vol] 88.3 fL 81-99 [place] Mean corpuscular hemoglobin (MCH) determinationOrdered By: Liane Archer on 11-02-2024 MCH (RBC) [Entitic mass] 30.3 pg 27.0-32.0 [facility] Mean corpuscular hemoglobin concentration (MCHC) determinationOrdered By: Liane Archer on 11-02-2024 MCHC (RBC) [Mass/Vol] 34.3 g/dL 32-36 [facility] Mean platelet volume determi nationOrdered By: Liane Archer on 11-02-2024 Platelet mean volume (Bld) [Entitic vol] 10.5 fL 6.2-12.0 [facility] Monocyte percentageOrdered B y: Liane Archer on 11-02-2024 Monocytes/100 WBC (Bld) 5.5 % 0-10 [place] Neutrophil percentageOrdered By: Liane Archer on 11-02-2024 Neutrophils/100 WBC (Bld) 68.2 % 47-70 [facility] Nucleated red blood cell per centageOrdered By: Liane Archer on 11-02-2024 Nucleated RBC/100 WBC (Bld) [Ratio] 0 % 0-5 [facility] Senior Talent Acquisition Specialist Office Visit Reporton 11-02-2024 Senior Talent Acquisition Specialist Office Visit Report [facility] [address], [address] [place] [address] OFFICE VISIT Date of Service: 11/02/24 MR#: [id number] Acct: [id number] Name: KARLA DEGROOT Rep #: [id number] : 1995 Provider: JESSICA ortega Age/Sex: 29/F Location: [facility] Status: Signed Intake Vital Signs 08/05/24 10:38 10/05/24 09:36 11/02/24 08:07 11/02/24 08:11 Height 5 ft 6 in 5 ft 6 in 5 ft 6 in 5 ft 6 in Weight: 220 lb BMI 35.5 BP 119/74 Intake Visit Reasons: 20wk ob Chief Complaint: 20 Week OB Human Factors Ergonomist Required: No Is patient in pain?: No Allergies No Known Allergies Allergy (Verified 11/02/24 08:06) Medications ???Medication ???Instructions ???Recorded ???Confirmed ???Type multivit-min no.71-iron fum 28 1 cap PO DAILY 11/26/22 11/02/24 History mg-folate no.1 1 mg-dha 300 mg capsule (PNV-Standish) Last Menstrual Period: 06/02/24 Zika: Zika virus screening: Negative : No PFSH PFSH Medical History Anemia in preg-unspec Chorioamnionitis, delivered, current hospitalization hemorrhage delivery delivered False labor Abnormal ultrasound Congenital abnormality ureter Surgical History Previous section [place] teeth removed Family History Grandmother Breast cancer, Onset Age: 70 Paternal Thyroid disorder Paternal- hyperthyroid Aunt Cancer, Onset Age: 53 Maternal - thyroid Social History adopted: No household members: spouse housing: house number of children: 1 current occupational status: employed current occupation: [employer] current occupational exposures/hazards: No pets and animals: [...] frequency: does not exercise duration: 45-60 minutes/day tez/sikhism: None seatbelt use: always do you feel safe at home: Yes 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 Date Name GA/Weeks Outcome Route Bth Weight Gen Labor Lgth Anesthesia Del Locatn Provider FOB 06/21/23 Paige 39 live - full term 6#12 Female [facility] Dr Ramya Hidalgo Delivery Date: 06/21/23 Last [...] -???-???-???-???-???- ???-??? (more content not included)... Normal [facility] Platelet countOrdered By: Charlie Archer on 11-02-2024 Platelets (Bld) [#/Vol] 265 10*3/uL 150-450 [facility] Potassium measurement (mass/ volume)Ordered By: Liane Archer on 11-02-2024 Potassium (Unsp spec) [Mass/Vol] 3.8 mmol/L 3.3-5.1 [facility] Protein+Creatinine Ratio,Uri neon 11-02-2024 PROT:CRE RATIO 186 mg/g CRE Normal 0-200 [facility] [facility] Comment on above: Performed By: #### L 501.0900, L500.4050, L100.0100 ####[facility] [address] [place], [address] Protein (U) [Mass/Vol] 29.2 mg/dL High 0.0-12.0 [facility] Comment on above: Performed By: #### L 501.0900, L500.4050, L100.0100 ####[facility] [address] [place], [address] UR CREAT 157.00 mg/dL Normal 28.00-217.00 [facility] Comment on above: Performed By: #### L 501.0900, L500.4050, L100.0100 ####[facility] [address] [place], [address] RBC Auto (Bld) [#/Vol]Ordere d By: Liane Archer on 11-02-2024 RBC (Bld) [#/Vol] 3.60 10*6/uL Low 4.2-5.4 [facility] Random urine creatinine elie urement (mass/volume)Ordered By: Liane Archer on 11-02-2024 Creatinine Unsp time (U) [Mass/Vol] 157.00 mg/dL 28.00-217.00 [facility] Serum creatinine measurement (mass/volume)Ordered By: Liane Archer on 11-02-2024 Creatinine [Mass/Vol] 0.49 mg/dL Low 0.70-1.20 [facility] Serum globulin measurementOr dered By: Liane Archer on 11-02-2024 Globulin (S) [Mass/Vol] 2.7 g/dL 2.2-4.2 [facility] Serum glucose measurement (m ass/volume)Ordered By: Liane Archer on 11-02-2024 Glucose [Mass/Vol] 85 mg/dL 70-99 [facility] Serum or plasma alanine vargas otransferase (ALT) measurementOrdered By: Liane Archer on 11-02-2024 ALT [Catalytic activity/Vol] 9 U/L <35 [facility] Serum or plasma albumin elie urement (mass/volume)Ordered By: Liane Archer on 11-02-2024 Albumin [Mass/Vol] 3.8 g/dL 3.5-5.0 [facility] Serum or plasma albumin/glob ulin mass ratioOrdered By: Liane Archer on 11-02-2024 Albumin/Globulin [Mass ratio] 1.4 {ratio} 0.9-2.4 [facility] Serum or plasma alkaline jose sphatase measurementOrdered By: Liane Archer on 11-02-2024 ALP [Catalytic activity/Vol] 41 U/L 35-104 [facility] Serum or plasma calcium elie urement (mass/volume)Ordered By: Liane Archer on 11-02-2024 Calcium [Mass/Vol] 9.1 mg/dL 7.6-11.0 [facility] Serum or plasma urea nitroge n measurement (mass/volume)Ordered By: Liane Archer on 11-02-2024 Urea nitrogen [Mass/Vol] 6 mg/dL 4-19 [facility] Sodium levelOrdered By: Chan emily Gianni on 11-02-2024 Sodium [Moles/Vol] 136 mmol/L 133-145 [facility] Total proteinOrdered By: Jonel velazquez Gianni on 11-02-2024 Protein [Mass/Vol] 6.5 g/dL 5.9-8.4 [facility] Urine protein measurement (m ass/volume)Ordered By: Liane Archer on 11-02-2024 Protein (U) [Mass/Vol] 29.2 mg/dL High 0.0-12.0 [facility] Urine protein/creatinine mas s ratioOrdered By: Liane Archer on 11-02-2024 Protein/Creatinine (U) [Mass ratio] 186 mg/g CRE 0-200 [facility] White blood cell (WBC) count Ordered By: Liane Archer on 11-02-2024 WBC (Bld) [#/Vol] 8.0 10*3/uL 4.4-11.0 [facility] Laboratory - Chemistry and C hemistry - challengeOrdered By: Latoya Newman on 10-05-2024 Glucose Ql (U) Negative [facility] Laboratory - UrinalysisOrder ed By: Latoya Newman on 10-05-2024 Protein Ql (U) Negative [facility] Senior Talent Acquisition Specialist Office Visit Reporton 10-05-2024 Senior Talent Acquisition Specialist Office Visit Report [facility] [address], [address] [place] [address] OFFICE VISIT Date of Service: 10/05/24 MR#: [id number] Acct: [id number] Name: KARLA DEGROOT Rep #: [id number] : 1995 Provider: Dr. Latoya Rogers DO Age/Sex: 28/F Location: [facility] Status: Signed Intake Vital Signs 08/05/24 10:38 09/06/24 08:29 10/05/24 09:36 10/05/24 09:56 Height 5 ft 6 in 5 ft 6 in 5 ft 6 in Weight: 220 lb 9.6 oz BP 134/76 H Intake Visit Reasons: 15wk ob Human Factors Ergonomist Required: No Is patient in pain?: No Allergies No Known Allergies Allergy (Verified 10/05/24 09:36) Medications ???Medication ???Instructions ???Recorded ???Confirmed ???Type multivit-min no.71-iron fum 28 1 cap PO DAILY 11/26/22 10/05/24 History mg-folate no.1 1 mg-dha 300 mg capsule (PNV-[place]ish) Last Menstrual Period: 06/02/24 Zika: Zika virus screening: Negative : No PFSH PFSH Medical History Anemia in preg-unspec Chorioamnionitis, delivered, current hospitalization hemorrhage delivery delivered False labor Abnormal ultrasound Congenital abnormality ureter Surgical History Previous section [place] teeth removed Family History Grandmother Breast cancer, Onset Age: 70 Paternal Thyroid disorder Paternal- hyperthyroid Aunt Cancer, Onset Age: 53 Maternal - thyroid Social History adopted: No household members: spouse housing: house number of children: 1 current occupational status: employed current occupation: [employer] current occupational exposures/hazards: No pets and animals: [...] frequency: does not exercise duration: 45-60 minutes/day tez/sikhism: None seatbelt use: always do you feel safe at home: Yes 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 Date Name GA/Weeks Outcome Route Bth Weight Gen Labor Lgth Anesthesia Del Locatn Provider FOB 06/21/23 Paige 39 live - full term 6#12 Female [facility] Dr Ramya Hidalgo Delivery Date: 06/21/23 Last [...] lb 9 (more content not included)... Normal [facility] Absolute lymphocyte countOrd ered By: Kavitha Boyer on 09-06-2024 Lymphocytes Auto (Unsp spec) [#/Vol] 2.16 10*3/uL 0.83-4.51 [facility] Absolute neutrophil countOrd ered By: Kavitha Boyer on 09-06-2024 Neutrophils (Bld) [#/Vol] 5.3 10*3/uL 2.0-7.7 [facility] Automated lymphocyte count a s percentage of total leukocytesOrdered By: Kavitha Merlin on 09-06-2024 Lymphocytes/100 WBC Auto (Unsp spec) 27.1 % 19-41 [facility] Basophil percentageOrdered B y: Kavitha Merlin on 09-06-2024 Basophils/100 WBC (Bld) 0.4 % 0-1 [place] CBC W/Diff, Automatedon 08-18 Absolute Lymph 2.16 X10 3/uL Normal 0.83-4.51 [facility] Comment on above: Performed By: #### L 3890.6006, L501.9985, L509.8002, L3890.6102, BTS, L100.0100, L509.4006, L3890.6301 #### [facility] [address] [place], [address] Absolute Neut 5.3 X10 3/uL Normal 2.0-7.7 [facility] Comment on above: Performed By: #### L 3890.6006, L501.9985, L509.8002, L3890.6102, BTS, L100.0100, L509.4006, L3890.6301 #### [facility] [address] [place], [address] Basophils/100 WBC (Bld) 0.4 % Normal 0-1 [facility] Comment on above: Performed By: #### L 3890.6006, L501.9985, L509.8002, L3890.6102, BTS, L100.0100, L509.4006, L3890.6301 #### [facility] [address] [place], [address] Eosinophils/100 WBC (Bld) 1.0 % Normal 0-5 [facility] Comment on above: Performed By: #### L 3890.6006, L501.9985, L509.8002, L3890.6102, BTS, L100.0100, L509.4006, L3890.6301 #### [facility] [address] [place], [address] Erythrocyte distribution width (RBC) [Ratio] 12.9 % Normal 11.6-14.6 [facility] Comment on above: Performed By: #### L 3890.6006, L501.9985, L509.8002, L3890.6102, BTS, L100.0100, L509.4006, L3890.6301 #### [facility] [address] [place], [address] Hematocrit (Bld) [Volume fraction] 37.0 % Normal 37-47 [facility] Comment on above: Performed By: #### L 3890.6006, L501.9985, L509.8002, L3890.6102, BTS, L100.0100, L509.4006, L3890.6301 #### [facility] [address] [place], [address] Hemoglobin (Bld) [Mass/Vol] 12.1 g/dL Normal 12.0-15.0 [facility] Comment on above: Performed By: #### L 3890.6006, L501.9985, L509.8002, L3890.6102, BTS, L100.0100, L509.4006, L3890.6301 #### [facility] [address] [place], [address] IG% 0.400 Normal 0.0-0.9 [facility] Comment on above: Result Comment: IG% - Immature Granulocytes (promyelocytes, myelocytes and metamyelocytes) > 1% indicates that a LEFT SHIFT is Present. Performed By: #### L 3890.6006, L501.9985, L509.8002, L3890.6102, BTS, L100.0100, L509.4006, L3890.6301 #### [facility] [address] [place], [address] Lymphocytes/100 WBC (Bld) 27.1 % Normal 19-41 [facility] Comment on above: Performed By: #### L 3890.6006, L501.9985, L509.8002, L3890.6102, BTS, L100.0100, L509.4006, L3890.6301 #### [facility] [address] [place], [address] MCH (RBC) [Entitic mass] 28.9 pg Normal 27.0-32.0 [facility] Comment on above: Performed By: #### L 3890.6006, L501.9985, L509.8002, L3890.6102, BTS, L100.0100, L509.4006, L3890.6301 #### [facility] [address] [place], [address] MCHC (RBC) [Mass/Vol] 32.7 g/dL Normal 32-36 [facility] Comment on above: Performed By: #### L 3890.6006, L501.9985, L509.8002, L3890.6102, BTS, L100.0100, L509.4006, L3890.6301 #### [facility] [address] [place], [address] MCV (RBC) [Entitic vol] 88.3 fL Normal 81-99 [facility] [place] Comment on above: Performed By: #### L 3890.6006, L501.9985, L509.8002, L3890.6102, BTS, L100.0100, L509.4006, L3890.6301 #### [facility] [address] [place], [address] Monocytes/100 WBC (Bld) 4.6 % Normal 0-10 [facility] [place] Comment on above: Performed By: #### L 3890.6006, L501.9985, L509.8002, L3890.6102, BTS, L100.0100, L509.4006, L3890.6301 #### [facility] [address] [place], [address] Neutrophils/100 WBC (Bld) 66.5 % Normal 47-70 [facility] Comment on above: Performed By: #### L 3890.6006, L501.9985, L509.8002, L3890.6102, BTS, L100.0100, L509.4006, L3890.6301 #### [facility] [address] [place], [address] Nucleated RBC (Bld) [#/Vol] 0 10*3/uL Normal 0-5 [facility] Comment on above: Performed By: #### L 3890.6006, L501.9985, L509.8002, L3890.6102, BTS, L100.0100, L509.4006, L3890.6301 #### [facility] [address] [place], [address] Platelet mean volume (Bld) [Entitic vol] 10.2 fL Normal 6.2-12.0 [facility] Comment on above: Performed By: #### L 3890.6006, L501.9985, L509.8002, L3890.6102, BTS, L100.0100, L509.4006, L3890.6301 #### [facility] [address] [place], [address] Platelets (Bld) [#/Vol] 289 10*3/uL Normal 150-450 [facility] Comment on above: Performed By: #### L 3890.6006, L501.9985, L509.8002, L3890.6102, BTS, L100.0100, L509.4006, L3890.6301 #### [facility] [address] [place], [address] RBC (Bld) [#/Vol] 4.19 10*6/uL Low 4.2-5.4 [facility] Comment on above: Performed By: #### L 3890.6006, L501.9985, L509.8002, L3890.6102, BTS, L100.0100, L509.4006, L3890.6301 #### [facility] [address] [place], [address] RDW SD 41.4 fl Normal 35.1-43.9 [facility] Comment on above: Performed By: #### L 3890.6006, L501.9985, L509.8002, L3890.6102, BTS, L100.0100, L509.4006, L3890.6301 #### [facility] [address] [place], [address] WBC (Bld) [#/Vol] 8.0 10*3/uL Normal 4.4-11.0 [facility] Comment on above: Performed By: #### L 3890.6006, L501.9985, L509.8002, L3890.6102, BTS, L100.0100, L509.4006, L3890.6301 #### [facility] [address] [facility] [place], [address] Eosinophil percentageOrdered By: Kavitha Boyer on 09-06-2024 Eosinophils/100 WBC (Bld) 1.0 % 0-5 [facility] Erythrocyte distribution wid th ratioOrdered By: Kavitha Boyer on 09-06-2024 Erythrocyte distribution width (RBC) [Ratio] 12.9 % 11.6-14.6 [facility] Erythrocyte distribution wid th standard deviationOrdered By: Kavitha Boyer on 09-06-2024 Erythrocyte distribution width (RBC) [Ratio] 41.4 fl 35.1-43.9 [facility] HIVon 09-06-2024 HIV Non-Reactive Normal Nonreactive [facility] Comment on above: Result Comment: Non- Reactive Reactive Repeatedly reactive samples must be confirmed according to CDC recommended confirmatory algorithms. The subresults for either HIVAG or AHIV can be used as an aid in the selection of the confirmation algorithm for reactive samples. Send out specimens with Reactive results to [facility] for confirmation. Order the HIV antibody detection and differentiation: lc#[id number] Performed By: #### L 3890.6006, L501.9985, L509.8002, L3890.6102, BTS, L100.0100, L509.4006, L3890.6301 ####[facility] [address] [place], [address] Hematocrit Auto (Bld) [Volum e fraction]Ordered By: Kavitha Boyer on 09-06-2024 Hematocrit (Bld) [Volume fraction] 37.0 % 37-47 [facility] Hemoglobin A1con 09-06-2024 HbA1c (Bld) [Mass fraction] 5.5 % Normal <=5.6 [facility] Comment on above: Result Comment: Norm al < 5.7 % Prediabetic 5.7 - 6.4 % Diabetic >or= 6.5 % Please note range changes. Performed By: #### L 3890.6006, L501.9985, L509.8002, L3890.6102, BTS, L100.0100, L509.4006, L3890.6301 #### [facility] [address] [place], [address] Hemoglobin A1c percentageOrd ered By: Kavitha Boyer on 09-06-2024 HbA1c (Bld) [Mass fraction] 5.5 % <5.7 [facility] Comment on above: Normal < 5.7 % Predi abetic 5.7 - 6.4 % Diabetic >or= 6.5 % Please note range changes. Hemoglobin measurementOrdere d By: Kavitha Boyer on 09-06-2024 Hemoglobin (Bld) [Mass/Vol] 12.1 g/dL 12.0-15.0 [facility] Hepatitis C Antibodyon 09-06 Hepatitis C Ab Non-Reactive Normal Nonreactive [facility] Comment on above: Result Comment: Reac tive: Presumptive evidence of antibodies to HCV. Follow CDC recommendations for supplemental testing. Non-Reactive: Antibodies to HCV were not detected; does not exclude the possibility of exposure to HCV Reactive Results are presumptive evidence of antibodies to HCV. Follow CDC recommendations for supplemental testing. Order confirmation testing: HCV Quant by PCR testing - HCVPCR #[id number] Non Reactive: < 0.8 Equivocal: >/= 0.8 to < 1.0 Reactive: >/= 1.0 The [facility] requires that a reactive/equivocal HCV antibody result be sent out for confirmation. HCV Quant by PCR testing. Performed By: #### L 3890.6006, L501.9985, L509.8002, L3890.6102, BTS, L100.0100, L509.4006, L3890.6301 ####[facility] [address] [place], [place], [id number] Immature granulocytes/100 WB C Auto (Bld)Ordered By: Kavitha Boyer on 09-06-2024 Immature granulocytes/100 WBC (Bld) 0.400 % 0.0-0.9 [facility] Comment on above: IG% - Immature Granu locytes (promyelocytes, myelocytes and metamyelocytes) > 1% indicates that a LEFT SHIFT is Present. L3890.6102on 09-06-2024 HEP B Surf Ag Non-Reactive Normal Nonreactive [facility] Comment on above: Result Comment: Reac tive: Presumptive evidence of HBV. Repeatedly reactive samples must be confirmed using a neutralization test ([employer] HBsAg Confirmatory Test) Non-Reactive: HBsAg not detected; does not exclude the possibility of exposure to HBV Performed By: #### L 3890.6006, L501.9985, L509.8002, L3890.6102, BTS, L100.0100, L509.4006, L3890.6301 ####[facility] [address] [place], [place], [address] L509.4006on 09-06-2024 Rubella IgG REAC Normal Nonreactive [facility] Comment on above: Result Comment: Anti body Result: Interpretation Non-Reactive: Non-Immune Reactive: Immune The following results were obtained with the [employer] Rubella IgG assay. Results from assays of other manufacturers cannot be used interchangeably. Performed By: #### L 3890.6006, L501.9985, L509.8002, L3890.6102, BTS, L100.0100, L509.4006, L3890.6301 #### [facility] [place], [address] Laboratory - Microbiology an d Antimicrobial susceptibilityOrdered By: Kavitha Boyer on 09-06-2024 HBV surface Ag Ql (S) Non-Reactive Nonreactive [facility] Comment on above: Reactive: Presumptiv e evidence of HBV. Repeatedly reactive samples must be confirmed using a neutralization test ([employer] HBsAg Confirmatory Test)Non-Reactive: HBsAg not detected; does not exclude the possibility of exposure to HBV MCV (mean corpuscular volume ) determinationOrdered By: Kavitha Boyer on 09-06-2024 MCV (RBC) [Entitic vol] 88.3 fL 81-99 [place] Mean corpuscular hemoglobin (MCH) determinationOrdered By: Kavitha Boyer on 09-06-2024 MCH (RBC) [Entitic mass] 28.9 pg 27.0-32.0 [facility] Mean corpuscular hemoglobin concentration (MCHC) determinationOrdered By: Kavitha Boyer on 09-06-2024 MCHC (RBC) [Mass/Vol] 32.7 g/dL 32-36 [facility] Mean platelet volume determi nationOrdered By: Kavitha Boyer on 09-06-2024 Platelet mean volume (Bld) [Entitic vol] 10.2 fL 6.2-12.0 [facility] Monocyte percentageOrdered B y: Kavitha Boyer on 09-06-2024 Monocytes/100 WBC (Bld) 4.6 % 0-10 [place] Neutrophil percentageOrdered By: Kavitha Boyer on 09-06-2024 Neutrophils/100 WBC (Bld) 66.5 % 47-70 [facility] No Panel InformationOrdered By: Kavitha Boyer on 09-06-2024 HIV (1&2) Antibody Non-Reactive Nonreactive [facility] Comment on above: Non-ReactiveReactive Repeatedly reactive samples must be confirmed according to CDC recommended confirmatory algorithms. The subresults for either HIVAG or AHIV can be used as an aid in the selection of the confirmation algorithm for reactive samples.Send out specimens with Reactive results to [facility] for confirmation.Order the HIV antibody detection and differentiation: #[id number] Nucleated red blood cell per centageOrdered By: Kavitha Boyer on 09-06-2024 Nucleated RBC/100 WBC (Bld) [Ratio] 0 % 0-5 [facility] Senior Talent Acquisition Specialist Office Visit Reporton 09-06-2024 Senior Talent Acquisition Specialist Office Visit Report [facility]'s [address], [address] [place] [address] OFFICE VISIT Date of Service: 09/06/24 MR#: [id number] Acct: [id number] Name: KARLA DEGROOT Rep #: [id number] : 1995 Provider: Dr. Mickie smith MD Age/Sex: 28/F Location: [facility] Status: Signed Intake Vital Signs 08/13/23 14:05 08/05/24 10:38 09/06/24 08:29 Height 5 ft 6 in 5 ft 6 in 5 ft 6 in Weight: 226 lb 222 lb 4 oz BMI 36.4 35.9 BP 123/73 H 139/84 H Intake Visit Reasons: 11wk OB Human Factors Ergonomist Required: No Is patient in pain?: No Allergies No Known Allergies Allergy (Verified 09/06/24 08:37) Medications ???Medication ???Instructions ???Recorded ???Confirmed ???Type multivit-min no.71-iron fum 28 1 cap PO DAILY 11/26/22 09/06/24 History mg-folate no.1 1 mg-dha 300 mg capsule (PNV-[place]) Last Menstrual Period: 06/02/24 Zika: Zika virus screening: Negative : No PFSH PFSH Medical History Anemia in preg-unspec Chorioamnionitis, delivered, current hospitalization hemorrhage delivery delivered False labor Abnormal ultrasound Congenital abnormality ureter Surgical History Previous section [place] teeth removed Family History Grandmother Breast cancer, Onset Age: 70 Paternal Thyroid disorder Paternal- hyperthyroid Aunt Cancer, Onset Age: 53 Maternal - thyroid Social History adopted: No household members: spouse housing: house number of children: 1 current occupational status: employed current occupation: [employer] current occupational exposures/hazards: No pets and animals: [...] frequency: does not exercise duration: 45-60 minutes/day tez/sikhism: None seatbelt use: always do you feel safe at home: Yes 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 Date Name GA/Weeks Outcome Route Bth Weight Infant Gen Labor Lgth Anesthesia Del Locatn Provider FOB 06/21/23 Paige 39 live - full term 6#12 Female [facility] Dr Ramya Hidalgo Delivery Date: 06/21/23 Last [...] , Alcoh (more content not included)... Normal [facility] Platelet countOrdered By: Andre Boyer on 09-06-2024 Platelets (Bld) [#/Vol] 289 10*3/uL 150-450 [facility] RBC Auto (Bld) [#/Vol]Ordere d By: Kavitha Boyer on 09-06-2024 RBC (Bld) [#/Vol] 4.19 10*6/uL Low 4.2-5.4 [facility] Syphilis Antibodieson 2024 Syphilis Abs Non-Reactive Normal Nonreactive [facility] Comment on above: Performed By: #### L 3890.6006, L501.9985, L509.8002, L3890.6102, BTS, L100.0100, L509.4006, L3890.6301 #### [facility] Laboratory [address] [place], [place], [address] Type AND Screenon 09-06-2024 Ab SCREEN GEL Negative Normal [facility] Comment on above: Order Comment: PN Performed By: #### L 3890.6006, L501.9985, L509.8002, L3890.6102, BTS, L100.0100, L509.4006, L3890.6301 #### [facility] [address] [place], [place], [id number] White blood cell (WBC) count Ordered By: Kavitha Boyer on 09-06-2024 WBC (Bld) [#/Vol] 8.0 10*3/uL 4.4-11.0 [facility] Chlamydia/GC TONG aptimaon CHLAMY,NUC ACID Negative Normal Negative [facility] Comment on above: Performed By: #### L 7000.1800, M100.2200 #### [facility] [address] [place], [address] GC BY NUC ACID Negative Normal Negative [facility] Comment on above: Result Comment: Perf ormed at: =G - [facility] [address] [id number] [employer] Message Broker Developer: Maggi Malave MD, Phone: [phone] Performed By: #### L 7000.1800, M100.2200 #### [facility] [address] [place], [address] Urine Cultureon 08-07-2024 [facility] Mixed Gram Positive Organisms [place] Count 25,000-50,000 [facility] Mixed contaminants. Submit a new specimen if indicated. Normal [facility] Comment on above: Performed By: #### L 7000.1800, M100.2200 #### [facility] [address] [place], [address] Chlamydia trachomatis rRNA d etection by probe and target amplification methodOrdered By: Kavitha Boyer on 08-05-2024 C. trachomatis rRNA TONG+probe Ql (Unsp spec) Negative Negative [facility] Neisseria gonorrhoeae nuclei c acid detection by amplified probe techniqueOrdered By: Kavitha Boyer on 08-05-2024 N. gonorrhoeae DNA TONG+probe Ql (Unsp spec) Negative Negative [facility] Comment on above: Performed at: =[facility] [address] [id number] Director: Maggi Malave MD, Phone: [phone] Senior Talent Acquisition Specialist Office Visit Reporton 08-05-2024 Senior Talent Acquisition Specialist Office Visit Report [facility] [address], [address] [place] [address] OFFICE VISIT Date of Service: 08/05/24 MR#: [id number] Acct: [id number] Name: KARLA DEGROOT Rep #: [id number] : 1995 Provider: MARISOL Durham ams Age/Sex: 28/F Location: [facility] Status: Signed Intake Vital Signs 08/13/23 14:05 08/05/24 10:38 Height 5 ft 6 in 5 ft 6 in Weight: 226 lb BMI 36.4 BP 123/73 H Intake Visit Reasons: *EST* NOB LMP 06/02, FLOR 03/09 Chief Complaint: NOB Human Factors Ergonomist Required: No Is patient in pain?: No Allergies No Known Allergies Allergy (Verified 08/05/24 10:39) Medications ???Medication ???Instructions ???Recorded ???Confirmed ???Type multivit-min no.71-iron fum 28 1 cap PO DAILY 11/26/22 08/13/23 History mg-folate no.1 1 mg-dha 300 mg capsule (PNV-Standish) Last Menstrual Period: 06/02/24 Zika: Zika virus screening: Negative : No PFSH PFSH Medical History Anemia in preg-unspec Chorioamnionitis, delivered, current hospitalization hemorrhage delivery delivered False labor Abnormal ultrasound Congenital abnormality ureter Surgical History Previous section [place] teeth removed Family History Grandmother Breast cancer, Onset Age: 70 Paternal Thyroid disorder Paternal- hyperthyroid Aunt Cancer, Onset Age: 53 Maternal - thyroid Social History (Updated 08/05/24 @ 10:39 by Neela Tristan) adopted: No household members: spouse housing: house number of children: 1 financial difficulty paying for basics: somewhat hard service: No current occupational status: employed current occupation: [employer] current occupational exposures/hazards: No pets and animals: [...] frequency: does not exercise duration: 45-60 minutes/day tez/sikhism: None seatbelt use: always do you feel safe at home: Yes 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 Date Name GA/Weeks Outcome Route Bth Weight Gen Labor Lgth Anesthesia Del Locatn Provider FOB 06/21/23 Paige 39 live - full term 6#12 Female [facility] Dr Ramya Hidalgo Delivery Date: 06/21/23 Last Updated by: Yudelka Vacne Failed vacuum/chorio. PP hemorrhage, anemia, maternal fever [...] declines NIPT (more content not included)... Normal [facility] Urine cultureOrdered By: Romain Boyer on 08-05-2024 Bacteria identified Cx Nom (U) Positive Abnormal [facility] Absolute lymphocyte countOrd ered By: Trish Beckman on 06-22-2023 Lymphocytes Auto (Unsp spec) [#/Vol] 2.30 10*3/uL 0.83-4.51 [facility] Automated lymphocyte count a s percentage of total leukocytesOrdered By: Trish Beckman on 06-22-2023 Lymphocytes/100 WBC Auto (Unsp spec) 13.2 % 19-41 [facility] Basophil percentageOrdered B y: Trish Beckman on 06-22-2023 Basophils/100 WBC (Bld) 0.3 % 0-1 [place] Eosinophils/100 WBC (Bld) 1.6 % 0-5 [facility] Hemoglobin (Bld) [Mass/Vol] 9.5 g/dL 12.0-15.0 [facility] Monocytes/100 WBC (Bld) 6.6 % 0-10 [place] Neutrophils (Bld) [#/Vol] 13.5 10*3/uL 2.0-7.7 [facility] Neutrophils/100 WBC (Bld) 77.4 % 47-70 [facility] WBC (Bld) [#/Vol] 17.4 10*3/uL 4.4-11.0 [facility] Determination of erythrocyte mean corpuscular volume (MCV)Ordered By: Trish Beckman on 06-22-2023 MCV (RBC) [Entitic vol] 88.9 fL 81-99 [place] Erythrocyte distribution wid th ratioOrdered By: Trish Beckman on 06-22-2023 Erythrocyte distribution width (RBC) [Ratio] 15.0 % 11.6-14.6 [facility] Erythrocyte distribution wid th standard deviationOrdered By: Trish Beckman on 06-22-2023 Erythrocyte distribution width (RBC) [Entitic vol] 48.6 fL 35.1-43.9 [facility] Hematocrit Auto (Bld) [Volum e fraction]Ordered By: Trish Beckman on 06-22-2023 Hematocrit (Bld) [Volume fraction] 30.3 % 37-47 [facility] Immature granulocytes/100 WB C Auto (Bld)Ordered By: Trish Beckman on 06-22-2023 Immature granulocytes/100 WBC (Bld) 0.900 % 0.0-0.9 [facility] Comment on above: IG% - Immature Granu locytes (promyelocytes, myelocytes and metamyelocytes) > 1% indicates that a LEFT SHIFT is Present. Laboratory - Hematology and Cell countsOrdered By: Trish Beckman on 06-22-2023 MCH (RBC) [Entitic mass] 27.9 pg 27.0-32.0 [facility] MCHC (RBC) [Mass/Vol] 31.4 g/dL 32-36 [facility] Nucleated RBC/100 WBC (Bld) [Ratio] 0 % 0-5 [facility] Platelet mean volume (Bld) [Entitic vol] 10.2 fL 6.2-12.0 [facility] Platelets (Bld) [#/Vol] 330 10*3/uL 150-450 [facility] RBC Auto (Bld) [#/Vol]Ordere d By: Trish Beckman on 06-22-2023 RBC (Bld) [#/Vol] 3.41 10*6/uL 4.2-5.4 [facility] Blood manual differential co mment interpretation (narrative result)Ordered By: Latoya Newman on 06-21-2023 Manual differential comment Yo (Bld) [Interp] SCANNED [facility] Comment on above: MONOCYTOSIS NOTED Review by pathologistOrdered By: Latoya Newman on 06-21-2023 Pathologist review Yo (Unsp spec) [Interp] Reviewed [facility] Comment on above: Previous reported re sult: Lana cooper Edited by: ERIC on 06/23/23:1016Neutrophilic leukocytosis.Normocytic anemia.Clinical correlation necessary.Beau Bear M.D. 06/23/23 AMENDED REPORT 06/23/23 1016 PATH REV previously reported as: Lana copoer Serum Treponema species anti body detectionOrdered By: Trish Beckman on 06-21-2023 Treponema sp Ab Ql (S) Non-Reactive [facility] Laboratory - Chemistry and C hemistry - challengeon 06-16-2023 Glucose Ql (U) Negative [facility] Laboratory - Urinalysison Protein Ql (U) Negative [facility] Laboratory - Chemistry and C hemistry - challengeon 06-10-2023 Glucose Ql (U) Negative [facility] Laboratory - Urinalysison Protein Ql (U) Negative [facility] Laboratory - Chemistry and C hemistry - challengeon 06-03-2023 Glucose Ql (U) Negative [facility] Laboratory - Urinalysison Protein Ql (U) Negative [facility] Laboratory - Chemistry and C hemistry - challengeon 05-28-2023 Glucose Ql (U) Negative [facility] Laboratory - Urinalysison Protein Ql (U) Negative [facility] No Panel InformationOrdered By: Latoya Newman on 05-28-2023 Group B Streptococcus Culture Group B Beta Streptococcus is not isolated. [facility] Absolute lymphocyte countOrd ered By: Kavitha Boyer on 05-13-2023 Lymphocytes Auto (Unsp spec) [#/Vol] 1.87 10*3/uL 0.83-4.51 [facility] Automated lymphocyte count a s percentage of total leukocytesOrdered By: Kavitha Boyer on 05-13-2023 Lymphocytes/100 WBC Auto (Unsp spec) 19.3 % 19-41 [facility] Basophil percentageOrdered B y: Kavitha Boyer on 05-13-2023 Basophils/100 WBC (Bld) 0.3 % 0-1 [place] Eosinophils/100 WBC (Bld) 1.1 % 0-5 [facility] Hemoglobin (Bld) [Mass/Vol] 11.0 g/dL 12.0-15.0 [facility] Monocytes/100 WBC (Bld) 6.2 % 0-10 [place] Neutrophils (Bld) [#/Vol] 7.0 10*3/uL 2.0-7.7 [facility] Neutrophils/100 WBC (Bld) 72.4 % 47-70 [facility] WBC (Bld) [#/Vol] 9.7 10*3/uL 4.4-11.0 [facility] Determination of erythrocyte mean corpuscular volume (MCV)Ordered By: Kavitha Boyer on 05-13-2023 MCV (RBC) [Entitic vol] 88.0 fL 81-99 [place] Erythrocyte distribution wid th ratioOrdered By: Kavitha Boyer on 05-13-2023 Erythrocyte distribution width (RBC) [Ratio] 13.3 % 11.6-14.6 [facility] Erythrocyte distribution wid th standard deviationOrdered By: Kavitha Boyer on 05-13-2023 Erythrocyte distribution width (RBC) [Entitic vol] 42.8 fL 35.1-43.9 [facility] Hematocrit Auto (Bld) [Volum e fraction]Ordered By: Kavitha Boyer on 05-13-2023 Hematocrit (Bld) [Volume fraction] 33.8 % 37-47 [facility] Immature granulocytes/100 WB C Auto (Bld)Ordered By: Kavitha Boyer on 05-13-2023 Immature granulocytes/100 WBC (Bld) 0.700 % 0.0-0.9 [facility] Comment on above: IG% - Immature Granu locytes (promyelocytes, myelocytes and metamyelocytes) > 1% indicates that a LEFT SHIFT is Present. Laboratory - Chemistry and C hemistry - challengeon 05-13-2023 Glucose Ql (U) Negative [facility] Laboratory - Hematology and Cell countsOrdered By: Kavitha Boyer on 05-13-2023 MCH (RBC) [Entitic mass] 28.6 pg 27.0-32.0 [facility] MCHC (RBC) [Mass/Vol] 32.5 g/dL 32-36 [facility] Nucleated RBC/100 WBC (Bld) [Ratio] 0 % 0-5 [facility] Platelet mean volume (Bld) [Entitic vol] 9.9 fL 6.2-12.0 [facility] Platelets (Bld) [#/Vol] 339 10*3/uL 150-450 [facility] Laboratory - Urinalysison Protein Ql (U) Negative [facility] RBC Auto (Bld) [#/Vol]Ordere d By: Kavitha Boyer on 05-13-2023 RBC (Bld) [#/Vol] 3.84 10*6/uL 4.2-5.4 [facility] Laboratory - Chemistry and C hemistry - challengeon 04-28-2023 Glucose Ql (U) Negative [facility] Laboratory - Urinalysison Protein Ql (U) Negative [facility] Laboratory - Chemistry and C hemistry - challengeon 04-16-2023 Glucose Ql (U) Negative [facility] Laboratory - Urinalysison Protein Ql (U) Negative [facility] Absolute lymphocyte countOrd ered By: Liane Archer on 03-27-2023 Lymphocytes Auto (Unsp spec) [#/Vol] 1.76 10*3/uL 0.83-4.51 [facility] Automated lymphocyte count a s percentage of total leukocytesOrdered By: Liane Archer on 03-27-2023 Lymphocytes/100 WBC Auto (Unsp spec) 17.2 % 19-41 [facility] Basophil percentageOrdered B y: Liane Archer on 03-27-2023 Basophils/100 WBC (Bld) 0.4 % 0-1 [place] Eosinophils/100 WBC (Bld) 1.1 % 0-5 [facility] Hemoglobin (Bld) [Mass/Vol] 10.3 g/dL 12.0-15.0 [facility] Monocytes/100 WBC (Bld) 4.1 % 0-10 [place] Neutrophils (Bld) [#/Vol] 7.8 10*3/uL 2.0-7.7 [facility] Neutrophils/100 WBC (Bld) 76.3 % 47-70 [facility] WBC (Bld) [#/Vol] 10.3 10*3/uL 4.4-11.0 [facility] Determination of erythrocyte mean corpuscular volume (MCV)Ordered By: Liane Archer on 03-27-2023 MCV (RBC) [Entitic vol] 91.4 fL 81-99 [place] Erythrocyte distribution wid th ratioOrdered By: Liane Archer on 03-27-2023 Erythrocyte distribution width (RBC) [Ratio] 12.8 % 11.6-14.6 [facility] Erythrocyte distribution wid th standard deviationOrdered By: Liane Archer on 03-27-2023 Erythrocyte distribution width (RBC) [Entitic vol] 41.7 fL 35.1-43.9 [facility] Gestational diabetes screen 1-hour screen with 50g oral glucose loadOrdered By: Liane Archer on 03-27-2023 Glucose 1 Hr post 50 g glucose PO [Mass/Vol] 178 mg/dL 70-140 [facility] HIV 1 and HIV-2 antibody ass ay with HIV-1 p24 antigen detectionOrdered By: Liane Archer on 03-27-2023 HIV 1+2 Ab+HIV1 p24 Ag IA Ql Non-Reactive Nonreactive [facility] Hematocrit Auto (Bld) [Volum e fraction]Ordered By: Liane Archer on 03-27-2023 Hematocrit (Bld) [Volume fraction] 32.0 % 37-47 [facility] Immature granulocytes/100 WB C Auto (Bld)Ordered By: Liane Archer on 03-27-2023 Immature granulocytes/100 WBC (Bld) 0.900 % 0.0-0.9 [facility] Comment on above: IG% - Immature Granu locytes (promyelocytes, myelocytes and metamyelocytes) > 1% indicates that a LEFT SHIFT is Present. Laboratory - Chemistry and C hemistry - challengeon 03-27-2023 Glucose Ql (U) Negative [facility] Laboratory - Hematology and Cell countsOrdered By: Liane Archer on 03-27-2023 MCH (RBC) [Entitic mass] 29.4 pg 27.0-32.0 [facility] MCHC (RBC) [Mass/Vol] 32.2 g/dL 32-36 [facility] Nucleated RBC/100 WBC (Bld) [Ratio] 0 % 0-5 [facility] Platelet mean volume (Bld) [Entitic vol] 10.2 fL 6.2-12.0 [facility] Platelets (Bld) [#/Vol] 320 10*3/uL 150-450 [facility] Laboratory - Urinalysison Protein Ql (U) Negative [facility] RBC Auto (Bld) [#/Vol]Ordere d By: Liane Archer on 03-27-2023 RBC (Bld) [#/Vol] 3.50 10*6/uL 4.2-5.4 [facility] Serum Treponema species anti body detectionOrdered By: Liane Archer on 03-27-2023 Treponema sp Ab Ql (S) Non-Reactive [facility] Laboratory - Chemistry and C hemistry - challengeon 02-27-2023 Glucose Ql (U) Negative [facility] Laboratory - Urinalysison Protein Ql (U) Negative [facility] Laboratory - Chemistry and C hemistry - challengeon 01-30-2023 Glucose Ql (U) Negative [facility] Laboratory - Urinalysison Protein Ql (U) Negative [facility] Laboratory - Chemistry and C hemistry - challengeon 12-27-2022 Glucose Ql (U) Negative [facility] Laboratory - Urinalysison Protein Ql (U) Negative [facility] Absolute lymphocyte countOrd ered By: Mikcie Murray on 12-12-2022 Lymphocytes Auto (Unsp spec) [#/Vol] 2.50 10*3/uL 0.83-4.51 [facility] Basophil percentageOrdered B y: Mickie Murray on 12-12-2022 Basophils/100 WBC (Bld) 0.4 % 0-1 [place] Eosinophils/100 WBC (Bld) 0.8 % 0-5 [facility] Neutrophils (Bld) [#/Vol] 8.3 10*3/uL 2.0-7.7 [facility] Neutrophils/100 WBC (Bld) 72.5 % 47-70 [facility] WBC (Bld) [#/Vol] 11.4 10*3/uL 4.4-11.0 [facility] Blood erythrocytes count (nu mber/volume)Ordered By: Mickie Murray on 12-12-2022 RBC (Bld) [#/Vol] 3.99 10*6/uL 4.2-5.4 [facility] Blood hemoglobin measurement (mass/volume)Ordered By: Mickie Mruray on 12-12-2022 Hemoglobin (Bld) [Mass/Vol] 11.8 g/dL 12.0-15.0 [facility] Blood lymphocytes/100 leukoc ytesOrdered By: Mickie Murray on 12-12-2022 Lymphocytes/100 WBC (Bld) 22.0 % 19-41 [facility] Blood monocytes/100 leukocyt esOrdered By: Mickie Murray on 12-12-2022 Monocytes/100 WBC (Bld) 3.7 % 0-10 [place] Blood platelet mean volumeOr dered By: Mickie Murray on 12-12-2022 Platelet mean volume (Bld) [Entitic vol] 9.9 fL 6.2-12.0 [facility] Determination of erythrocyte mean corpuscular volume (MCV)Ordered By: Mickie Murray on 12-12-2022 MCV (RBC) [Entitic vol] 90.5 fL 81-99 [place] HIV 1 and HIV-2 antibody ass ay with HIV-1 p24 antigen detectionOrdered By: Mickie Murray on 12-12-2022 HIV 1+2 Ab+HIV1 p24 Ag IA Ql Non-Reactive Nonreactive [facility] Hematocrit Auto (Bld) [Volum e fraction]Ordered By: Mickie Murray on 12-12-2022 Hematocrit (Bld) [Volume fraction] 36.1 % 37-47 [facility] Laboratory - Hematology and Cell countsOrdered By: Mickie Murray on 12-12-2022 Erythrocyte distribution width (RBC) [Entitic vol] 40.6 fL 35.1-43.9 [facility] Erythrocyte distribution width (RBC) [Ratio] 12.4 % 11.6-14.6 [facility] Immature granulocytes/100 WBC (Bld) 0.600 % 0.0-0.9 [facility] Comment on above: IG% - Immature Granu locytes (promyelocytes, myelocytes and metamyelocytes) > 1% indicates that a LEFT SHIFT is Present. MCH (RBC) [Entitic mass] 29.6 pg 27.0-32.0 [facility] Nucleated RBC/100 WBC (Bld) [Ratio] 0 % 0-5 [facility] MCHC Auto (RBC) [Mass/Vol]Or dered By: Mickie Murray on 12-12-2022 MCHC (RBC) [Mass/Vol] 32.7 g/dL 32-36 [facility] No Panel InformationOrdered By: Mickie Murray on 12-12-2022 Hepatitis B Surface Antigen Non-Reactive Nonreactive [facility] Hepatitis C Antibody Non-Reactive Nonreactive [facility] [place] Comment on above: Non Reactive: < 0.8 Equivocal: >/= 0.8 to < 1.0 Reactive: >/= 1.0The CDC recommends that a reactive/equivocal HCV antibody result be followed up by the HCV Nucleic Acid Amplificationtest (651704) Rubella IgG Antibody Reactive Nonreactive [facility] Comment on above: Antibody Results Int erpretation of Immune Status Non Reactive Presumed Non-Immune Equivocal Equivocal Reactive Presumed Immune Platelets bldOrdered By: Erik Murray on 12-12-2022 Platelets (Bld) [#/Vol] 313 10*3/uL 150-450 [facility] Serum Treponema species anti body detectionOrdered By: Mickie Murray on 12-12-2022 Treponema sp Ab Ql (S) Non-Reactive [facility] Whole blood hemoglobin A1c/t otal hemoglobin ratio (mass fraction)Ordered By: Mickie Murray on 12-12-2022 HbA1c (Bld) [Mass fraction] 5.3 % 3.8-5.6 [facility] Comment on above: Normal < 5.7 % Predi abetic 5.7 - 6.4 % Diabetic >or= 6.5 % Please note range changes. C. trachomatis+N. gonorrhoea e DNA TONG+probe Ql (Unsp spec)on 07-09-2021 C. trachomatis DNA TONG+probe Ql (Unsp spec) Negative Normal Negative for Chlamydia trachomatis by amplificaton [facility] Comment on above: Order Comment: Speci men Type: SWABOrdering Facility: [facility] Address: [address] [place] [address] Performed By: #### 3 [id number] ####[facility] LABCLIA [id number] [address] [place] N. gonorrhoeae DNA TONG+probe Ql (Unsp spec) Negative Normal Negative for Neisseria gonorrhoeae by amplification [facility] Comment on above: Order Comment: Speci men Type: SWABOrdering Facility: [facility] Address: [address] [place] [address] Performed By: #### 3 6902-5 ####[facility] LABCLIA [id number] [address] [place] CNOVon 07-09-2021 CNOV Office Visit (OBGYWM ) KARLA TUTTLE ([id number]) 1995 F Date Time Provider Department 07/09/21 [...] OB History No obstetric history on file. 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 Normal [facility] PAP FLUID CERVICAL SCREENING on 07-09-2021 CASE REPORT Normal [facility] Comment on above: Order Comment: Speci men Type: FLUID SAMPLEOrdering Facility: [facility] Address: [address] [place] [address] Result Comment: Gyne cologic Cytology Report Case: [id number] Authorizing Provider: Kaitlin Montilla APRN.CNM Collected: 07/09/2021 10:22 AM Ordering Location: OB/Gynecology Received: 07/09/2021 01:57 PM First Screen: PAULETTE Block ASCP Specimen: PAP CHIEF RADIATION THERAPIST SCREENING, CERVICAL SCREENING FLUID Performed By: #### L [id number] ####[facility] LABCLIA [id number] [place] [address] [place] CLINICAL HISTORY ROUTINE EXAM Normal [facility] Comment on above: Order Comment: Speci men Type: FLUID SAMPLEOrdering Facility: [facility] Address: [address] [place] [address] Performed By: #### L [id number] ####[facility] LABCLIA [id number] [place] [address] [place] CYTOLOGY INTERPRETATION PAP Normal [facility] Comment on above: Order Comment: Speci men Type: FLUID SAMPLEOrdering Facility: [facility] Address: [address] [place] [address] Result Comment: Nega tive for Intraepithelial lesion or malignancy. Performed By: #### L [id number] ####[facility] LABCLIA [id number] [address] [place] FINAL DIAGNOSIS Normal [facility] Comment on above: Order Comment: Speci men Type: FLUID SAMPLEOrdering Facility: [facility] Address: [address] [place], [place] [id number] Result Comment: A - CERVICAL SCREENING FLUID Satisfactory for interpretation Negative for Intraepithelial lesion or malignancy. Performed By: #### L [id number] ####[facility] LABCLIA [id number] [address] [place] FINAL PERFORMING LAB Normal [facility] Comment on above: Order Comment: Speci men Type: FLUID SAMPLEOrdering Facility: [facility] Address: [address] [place] [address] Result Comment: Tech nical component, automotive salesperson screening performed at [facility], [address] [place] [address] [place] [address] CLIA# [id number] Diagnostic interpretation performed at [facility], [address] [place] [address] [place] [address] CLIA# [id number] Basket Bottom Machine Operator: Shane De Paz M.D. Performed By: #### L [id number] ####[facility] LABCLIA [id number] [address] [place] HPV REQUESTED? Yes, Reflex HPV for ASCUS Normal [facility] Comment on above: Order Comment: Speci men Type: FLUID SAMPLEOrdering Facility: [facility] Address: [address] [place] [address] Performed By: #### L [id number] ####[facility] LABCLIA [id number] [place] LMP 06/09/2021 Normal [facility] Comment on above: Order Comment: Speci men Type: FLUID SAMPLEOrdering Facility: [facility] Address: [address] [place] [address] Performed By: #### L [id number] ####[facility] LABCLIA [id number] [place] [address] [place] PAP DISCLAIMER COMMENT The Pap Smear is a screening test for cervical cancer. False negative results occur with all screening tests, emphasizing the need for rescreening at recommended intervals, and clinical correlation. Normal [facility] Comment on above: Order Comment: Speci men Type: FLUID SAMPLEOrdering Facility: [facility] Address: [address] [place] [address] Performed By: #### L [id number] ####[facility] LABCLIA [id number] [address] [place] PAP CHIEF RADIATION THERAPIST COMMENT This specimen has been analyzed by the ThinPrep Imaging System, an automated imaging and review system, which assists the laboratory in evaluating cells on ThinPrep Pap tests. Following automated imaging, selected dhillon from every slide are reviewed by a automotive salesperson. Normal [facility] Comment on above: Order Comment: Speci men Type: FLUID SAMPLEOrdering Facility: [facility] Address: [address] [place] [address] Performed By: #### L [id number] ####[facility] LABCLIA [id number] [address] MRI BRAIN WO IVCONon 05-01-2 022 MRI BRAIN WO IVCON * * *Final Report* * * DATE OF EXAM: May 01 2021 2:44PM [facility] 0294 - MRI BRAIN WO IVCON / [...] chronic small vessel ischemia among other etiologies. Bottom Pounder [employer] Shoes: PSCB Transcribe Date/Time: May 01 2021 3:09P Dictated by : NATALIE REYES, DO This examination was interpreted and the report reviewed and electronically signed by: CARSON CORDOVA MD on May 01 2021 3:59PM EST [id number] Normal [facility] CNOVon 04-13-2021 CNOV Office Visit (NEURMM ) KARLA TUTTLE ([id number]) 1995 F Date Time Provider Department 04/13/21 10:00 AM YARELI LEMUS NEUR During your visit today, we recorded the following information about you: Pulse Blood pressure Weight 68/minute 133/69 105.1 kg Yareli Lemus MD 04/13/2021 10:33 AM Signed [facility] - new patient evaluation Date: April 13, 2021 Patient Name: Karla Tuttle Referring physician: Shelley Overton [address] [address] Primary [place]: [place] [address] [place] [address] Reason for Evaluation: lightheadedness HPI: The pt [...] table evaluation but those records are unavailable. 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 Normal [facility] CNOVon 04-02-2021 CNOV Office Visit (CAWSTR ) KARLA TUTTLE ([id number]) 1995 F Date Time Provider Department 04/02/21 3:00 PM SHELLEY OVERTON During your visit today, we recorded the following information about you: Pulse Blood pressure Weight Last Period 84/minute 130/70 104.3 kg 03/19/21 Shelley Overton APRN.FUNERAL HOME ATTENDANT 04/08/2021 8:12 PM Signed Chief Complaint Patient [...] 10 mL injection (DEFINITY) INTRAVENOUS DIRECTED PRN Racehl Moon APRN.FUNERAL HOME ATTENDANT - sodium chloride 0.9 % (flush) 10 mL (BD POSIFLUSH) 10 mL INTRAVENOUS DIRECTED PRN Rachel Moon APRN.FUNERAL HOME ATTENDANT Review of Systems Constitutional: Negative for chills, [...] is s (more content not included)... Normal [facility] CNOVon 02-27-2021 CNOV Office Visit (VSLWST ) KARLA TUTTLE ([id number]) 1995 F Date Time Provider Department 02/27/21 3:30 PM [facility] WSTR VSLWST During your visit today, we recorded the following information about you: Shelley Overton APRN.FUNERAL HOME ATTENDANT 02/27/2021 7:55 PM Signed Please call patient and let her know carotid US study was normal. Thank you! Referring Provider: SHELLEY OVERTON [[id number]] Allergies As of Date: 02/27/2021 (No Known Allergies) Date Reviewed: 02/21/2021 Reviewed by: Shelley Overton APRN.FUNERAL HOME ATTENDANT - Fully Assessed Visit Diagnosis:Lightheaded ness [R42] Order(s):US CAROTID ARTERIES [facility] [[id number]] Order #: [id number]. #[id number] Prescriptions as of 02/28/2021 - propranolol (INDERAL) [...] Status:Closed by SHELLEY OVERTON on 02/28/21 Normal [facility] CNPNon 02-23-2021 CNPN Telephone (CAWSTR) KARLA TUTTLE ([id number]) 1995 F Date Time Provider Department 02/23/21 SHELLEY OVERTON During your visit today, we recorded the following information about you: Thiago Langley Pss 02/23/2021 9:36 AM Signed Shelley, could you change the order for the Carotid to Vascular instead of Radiology? I scheduled the pt for 02/27 at 3:30 pm in the Vascular Lab in [place]. Thank you, Thiago Langley Patient Outreach Allergies As of Date: 02/23/2021 (No Known Allergies) Date Reviewed: 02/21/2021 Reviewed by: Shelley Overton, ROLLER ENGRAVER.FUNERAL HOME ATTENDANT - Fully Assessed Reason for Visit: Orders [681] Primary Visit Diagnosis:Lightheaded ness [R42] Order(s): CAROTID ARTERIES [facility] [[id number]] Order #: [id number] FUTURE Prescriptions as of 02/23/2021 - propranolol [...] Encounter Status:Closed by SHELLEY OVERTON on 02/23/21 [facility] CNOVon 02-19-2021 CNOV Office Visit (CAWSTR ) KARLA TUTTLE ([id number]) 1995 F Date Time Provider Department 02/19/21 2:00 PM SHELLEY OVERTON During your visit today, we recorded the following information about you: Pulse Blood pressure Weight Height 96/minute 140/74 104.3 kg 1.676 m Shelley Overton APRN.MAGALIS 02/19/2021 2:32 PM Signed Heart Disease in Women Is heart disease a problem for women? Heart disease is the leading cause of of [place] women. More women from heart disease than [...] disease. You can get more information from: -[place] Heart Gcnjlnqtraa4-840-GGP- [place]-1 ( )www.h eart.org Developed by [employer]. Published by [employer]. Copyright ?2013 [employer] and/or one of its subsidiaries. All rights reserved. Shelley Overton APRN.FUNERAL HOME ATTENDANT 02/21/2021 10:15 AM Signed [facility] SECTION OF REGIONAL CARDIOLOGY Cardiology ([facility]) [address] [facility] [phone] OUTPATIENT VISIT February 19, 2021 2:00 PM [...] due to (more content not included)... Normal [facility] CBC and Differentialon 11-13 Abs Baso 0.08 k/uL Normal <0.11 [facility] Comment on above: Performed By: #### C MP, TSH, IRON, MG1, AHCV1B, HIV12C, CBCDIF, FT4, FERR ####[place] [address] [address] [place] [phone] Abs Coll[place] 0.62 k/uL Normal <0.87 [facility] Comment on above: Performed By: #### C MP, TSH, IRON, MG1, AHCV1B, HIV12C, CBCDIF, FT4, FERR ####[place] [address] [place] [phone] Abs Neut 4.38 k/uL Normal 1.45-7.50 [facility] Comment on above: Performed By: #### C MP, TSH, IRON, MG1, AHCV1B, HIV12C, CBCDIF, FT4, FERR ####[place] [address] [place] [phone] Absolute nRBC <0.01 Normal <0.01 [facility] Comment on above: Performed By: #### C MP, TSH, IRON, MG1, AHCV1B, HIV12C, CBCDIF, FT4, FERR ####[place] [address] [place] [phone] Basophils/100 WBC (Bld) 1.0 % Normal [facility] Comment on above: Performed By: #### C MP, TSH, IRON, MG1, AHCV1B, HIV12C, CBCDIF, FT4, FERR ####[place] [address]CStephanie V[place] [phone] DTYPE Auto Diff Normal [facility] Comment on above: Performed By: #### C MP, TSH, IRON, MG1, AHCV1B, HIV12C, CBCDIF, FT4, FERR ####[place] [address] [address] [place] [phone] Eosinophils (Bld) [#/Vol] 0.32 10*3/uL Normal <0.46 [facility] Comment on above: Performed By: #### C MP, TSH, IRON, MG1, AHCV1B, HIV12C, CBCDIF, FT4, FERR ####[address] [place] [phone] Eosinophils/100 WBC (Bld) 3.8 % Normal [facility] Comment on above: Performed By: #### C MP, TSH, IRON, MG1, AHCV1B, HIV12C, CBCDIF, FT4, FERR ####[place] [phone] Erythrocyte distribution width (RBC) [Ratio] 12.3 % Normal 11.5-15.0 [facility] Comment on above: Performed By: #### C MP, TSH, IRON, MG1, AHCV1B, HIV12C, CBCDIF, FT4, FERR ####[place] [phone] Hematocrit (Bld) [Volume fraction] 41.1 % Normal 36.0-46.0 [facility] Comment on above: Performed By: #### C MP, TSH, IRON, MG1, AHCV1B, HIV12C, CBCDIF, FT4, FERR ####[place] [address] [address] [place] [phone] Hemoglobin (Bld) [Mass/Vol] 12.9 g/dL Normal 11.5-15.5 [facility] Comment on above: Performed By: #### C MP, TSH, IRON, MG1, AHCV1B, HIV12C, CBCDIF, FT4, FERR ####[address] [place] [phone] Lymphocytes (Bld) [#/Vol] 2.93 10*3/uL Normal 1.00-4.00 [facility] Comment on above: Performed By: #### C MP, TSH, IRON, MG1, AHCV1B, HIV12C, CBCDIF, FT4, FERR ####[place] [address] [place] [phone] Lymphocytes/100 WBC (Bld) 35.1 % Normal [facility] Comment on above: Performed By: #### C MP, TSH, IRON, MG1, AHCV1B, HIV12C, CBCDIF, FT4, FERR ####[place] [address] [address] [place] [phone] MCH 29.2 pG Normal 26.0-34.0 [facility] Comment on above: Performed By: #### C MP, TSH, IRON, MG1, AHCV1B, HIV12C, CBCDIF, FT4, FERR ####[place] [phone] MCHC (RBC) [Mass/Vol] 31.4 g/dL Normal 30.5-36.0 [facility] Comment on above: Performed By: #### C MP, TSH, IRON, MG1, AHCV1B, HIV12C, CBCDIF, FT4, FERR ####[place] [phone] MCV (RBC) [Entitic vol] 93.0 fL Normal 80.0-100.0 [facility] Comment on above: Performed By: #### C MP, TSH, IRON, MG1, AHCV1B, HIV12C, CBCDIF, FT4, FERR ####[place] [address] [place] [phone] Monocytes/100 WBC (Bld) 7.4 % Normal [facility] Comment on above: Performed By: #### C MP, TSH, IRON, MG1, AHCV1B, HIV12C, CBCDIF, FT4, FERR ####[place] [address] [place] [phone] Neutrophils/100 WBC (Bld) 52.7 % Normal [facility] Comment on above: Performed By: #### C MP, TSH, IRON, MG1, AHCV1B, HIV12C, CBCDIF, FT4, FERR ####[place] [address] AveCBryan, [place] [phone] NRBCs 0.0 /100 WBC Normal 0 [facility] Comment on above: Performed By: #### C MP, TSH, IRON, MG1, AHCV1B, HIV12C, CBCDIF, FT4, FERR ####[place] [address] [place] [phone] Platelet mean volume (Bld) [Entitic vol] 10.6 fL Normal 9.0-12.7 [facility] Comment on above: Performed By: #### C MP, TSH, IRON, MG1, AHCV1B, HIV12C, CBCDIF, FT4, FERR ####[place] [address] [place] [phone] Platelets (Bld) [#/Vol] 349 10*3/uL Normal 150-400 [facility] Comment on above: Performed By: #### C MP, TSH, IRON, MG1, AHCV1B, HIV12C, CBCDIF, FT4, FERR ####[place] [address], [place] [phone] RBC (Bld) [#/Vol] 4.42 10*6/uL Normal 3.90-5.20 [facility] Comment on above: Performed By: #### C MP, TSH, IRON, MG1, AHCV1B, HIV12C, CBCDIF, FT4, FERR ####[facility]CBryan, [place] [phone] WBC (Bld) [#/Vol] 8.35 10*3/uL Normal 3.70-11.00 [facility] Comment on above: Performed By: #### C MP, TSH, IRON, MG1, AHCV1B, HIV12C, CBCDIF, FT4, FERR ####[facility] [place], [place] [phone] CNOVon 11-13-2020 CNOV Office Visit (FAMPWS ) KARLA TUTTLE ([id number]) 1995 F Date Time Provider Department 11/13/20 2:00 PM RACHEL MOON During your visit today, we recorded the following information about you: Pulse Respiration Blood pressure Weight 80/minute 18/minute 128/90 103 kg Last Period 10/30/20 Rachel Moon APRN.FUNERAL HOME ATTENDANT 11/13/2020 7:50 PM Signed This is a [...] happen when standing up. Tilt table through [facility]. Dr. Natalio perry/ [facility]. Neurology. Has never had an echo. Has [...] INJECTION SYRIN (more content not included)... Normal [facility] Comp Metabolic Panelon 11-13 Albumin [Mass/Vol] 4.9 g/dL Normal 3.9-4.9 [facility] Comment on above: Performed By: #### C MP, TSH, IRON, MG1, AHCV1B, HIV12C, CBCDIF, FT4, FERR ####[facility] [place], [place] [phone] ALP [Catalytic activity/Vol] 47 U/L Normal 34-123 [facility] Comment on above: Performed By: #### C MP, TSH, IRON, MG1, AHCV1B, HIV12C, CBCDIF, FT4, FERR ####[facility] [place], [place] [phone] ALT [Catalytic activity/Vol] 50 U/L High 7-38 [facility] Comment on above: Performed By: #### C MP, TSH, IRON, MG1, AHCV1B, HIV12C, CBCDIF, FT4, FERR ####[place] [phone], [place] [phone] Anion gap [Moles/Vol] 13 mmol/L Normal 9-18 [facility] Comment on above: Performed By: #### C MP, TSH, IRON, MG1, AHCV1B, HIV12C, CBCDIF, FT4, FERR ####[place] [phone] AST [Catalytic activity/Vol] 29 U/L Normal 13-35 [facility] Comment on above: Performed By: #### C MP, TSH, IRON, MG1, AHCV1B, HIV12C, CBCDIF, FT4, FERR ####[address] [phone] Bilirubin [Mass/Vol] 0.3 mg/dL Normal 0.2-1.3 [facility] Comment on above: Performed By: #### C MP, TSH, IRON, MG1, AHCV1B, HIV12C, CBCDIF, FT4, FERR ####[place] [phone] Calcium [Mass/Vol] 9.8 mg/dL Normal 8.5-10.2 [facility] Comment on above: Performed By: #### C MP, TSH, IRON, MG1, AHCV1B, HIV12C, CBCDIF, FT4, FERR ####[address] [phone] Chloride [Moles/Vol] 104 mmol/L Normal 97-105 [facility] Comment on above: Performed By: #### C MP, TSH, IRON, MG1, AHCV1B, HIV12C, CBCDIF, FT4, FERR ####[place] [address] [place], [place] [phone] CO2 [Moles/Vol] 23 mmol/L Normal 22-30 [facility] Comment on above: Performed By: #### C MP, TSH, IRON, MG1, AHCV1B, HIV12C, CBCDIF, FT4, FERR ####[facility] [phone] Creatinine [Mass/Vol] 0.76 mg/dL Normal 0.58-0.96 [facility] Comment on above: Performed By: #### C MP, TSH, IRON, MG1, AHCV1B, HIV12C, CBCDIF, FT4, FERR ####[place] [address] [place] [phone] eGFR- Amer. >60 Normal [facility] Comment on above: Performed By: #### C MP, TSH, IRON, MG1, AHCV1B, HIV12C, CBCDIF, FT4, FERR ####[place] [phone] eGFR-All Other Races >60 Normal [facility] Comment on above: Result Comment: eGFR (Estimated [...] IRON, MG1, AHCV1B, HIV12C, CBCDIF, FT4, FERR ####[place] [phone] Glucose [Mass/Vol] 82 mg/dL Normal 74-99 [facility] Comment on above: Result Comment: The [place] Diabetes Association (ADA) provides guidance for cutoff [...] Standards of Medical Care in Diabetes 2016, [place] Diabetes Association. Diabetes Care. 2016.39(Suppl 1). Performed By: #### C MP, TSH, IRON, MG1, AHCV1B, HIV12C, CBCDIF, FT4, FERR ####[address] [phone] Potassium [Moles/Vol] 3.9 mmol/L Normal 3.7-5.1 [facility] Comment on above: Performed By: #### C MP, TSH, IRON, MG1, AHCV1B, HIV12C, CBCDIF, FT4, FERR ####[address] [phone] Protein [Mass/Vol] 7.3 g/dL Normal 6.3-8.0 [facility] Comment on above: Performed By: #### C MP, TSH, IRON, MG1, AHCV1B, HIV12C, CBCDIF, FT4, FERR ####[address] [phone] Sodium [Moles/Vol] 140 mmol/L Normal 136-144 [facility] Comment on above: Performed By: #### C MP, TSH, IRON, MG1, AHCV1B, HIV12C, CBCDIF, FT4, FERR ####[address] [phone] Urea nitrogen [Mass/Vol] 11 mg/dL Normal 7-21 [facility] Comment on above: Performed By: #### C MP, TSH, IRON, MG1, AHCV1B, HIV12C, CBCDIF, FT4, FERR ####[place] [phone] [place], [place] [phone] Ferritinon 11-13-2020 Ferritin [Mass/Vol] 66.0 ng/mL Normal 14.7-205.1 [facility] Comment on above: Performed By: #### C MP, TSH, IRON, MG1, AHCV1B, HIV12C, CBCDIF, FT4, FERR ####[address] [phone] Free T4on 11-13-2020 Free T4 [Mass/Vol] 1.1 ng/dL Normal 0.9-1.7 [facility] Comment on above: Performed By: #### C MP, TSH, IRON, MG1, AHCV1B, HIV12C, CBCDIF, FT4, FERR ####[address] [phone] [id number] Ag +HIV12 Abon 11-13 HIV 12 Ag/Ab Non-Reactive Normal Non Reactive [facility] Comment on above: Performed By: #### C MP, TSH, IRON, MG1, AHCV1B, HIV12C, CBCDIF, FT4, FERR ####[address] [phone] HIV-1/2 Antibody Normal [facility] Comment on above: Result Comment: Test Not Indicated Negative No evidence of HIV-1 or HIV-2 infection. Should recent infection be suspected, repeat testing may be considered 2-3 weeks after this draw. HIV Information: [place] Rev. Code 3701.243(E): This information has been [...] IRON, MG1, AHCV1B, HIV12C, CBCDIF, FT4, FERR ####[place] [address], [place] [phone] Hep C Ab IA w/Confon 021 Hepatitis C Ab IA Negative Normal Negative [facility] Comment on above: Performed By: #### C MP, TSH, IRON, MG1, AHCV1B, HIV12C, CBCDIF, FT4, FERR ####[place] [address] [place], [place] [phone] Iron and TIBCon 11-13-2020 Iron [Mass/Vol] 62 ug/dL Normal 41-186 [facility] Comment on above: Performed By: #### C MP, TSH, IRON, MG1, AHCV1B, HIV12C, CBCDIF, FT4, FERR ####[address] [phone] TIBC 368 ug/dL Normal 232-386 [facility] Comment on above: Performed By: #### C MP, TSH, IRON, MG1, AHCV1B, HIV12C, CBCDIF, FT4, FERR ####[address] [phone] Transferrin Saturatn 17 % Normal 15-57 [facility] Comment on above: Performed By: #### C MP, TSH, IRON, MG1, AHCV1B, HIV12C, CBCDIF, FT4, FERR ####[address], [place] [phone] Magnesiumon 11-13-2020 Magnesium [Mass/Vol] 2.2 mg/dL Normal 1.7-2.3 [facility] Comment on above: Performed By: #### C MP, TSH, IRON, MG1, AHCV1B, HIV12C, CBCDIF, FT4, FERR ####[place] [address], [place] [phone] TSHon 11-13-2020 TSH Qn 1.420 m[IU]/L Normal 0.270-4.200 [facility] Comment on above: Result Comment: If t [...] E, et al. 2017 Guidelines of the [place] Thyroid Association for the Diagnosis and Management of Thyroid Disease during and the . Thyroid, 2017:27:3:315-389. Performed By: #### C MP, TSH, IRON, MG1, AHCV1B, HIV12C, CBCDIF, FT4, FERR ####[facility] [address] [place], [place] [phone] Beta HCG (Qual), Serum - CHR Ion 03-25-2017 Beta HCG (Qual), Serum Negative Normal [facility] Comment on above: Performed By: #### Missael BCDFJ ####[facility] [place] [address] CBC WITH DIFF [place] 2017 Abs Baso 0.05 K/uL Normal 0.01-0.08 [facility] Comment on above: Performed By: #### C BCDFJ ####[facility] [place], [place] [address] Abs Eos 0.10 K/uL Normal 0.04-0.36 [facility] Comment on above: Performed By: #### C BCDFJ ####[place] [place] [address] Abs [place] 0.60 K/uL Normal 0.24-0.86 [facility] Comment on above: Performed By: #### C TIENDFJ ####[place] RODRIGUEZ, [facility] [place], [place] [address] Basophils/100 WBC Auto (Bld) 0.5 % Normal [facility] Comment on above: Performed By: #### C BCDFJ ####[place] RODRIGUEZ, [facility] [place], [place] [address] DIFFERENTIAL TYPE Electronic Differential Normal [facility] Comment on above: Performed By: #### C BCDFJ ####Lauro RODRIGUEZ, [facility] [place], [place] [address] Eosinophils/100 leukocytes 0.9 % Normal [facility] Comment on above: Performed By: #### C BCDFJ ####[facility] [place] [address] Erythrocytes (RBC) 4.40 10*6/uL Normal 3.93-5.22 [facility] Comment on above: Performed By: #### C BCDFJ ####Lauro RODRIGUEZ, [facility] [place], [place] [address] Erythrocytes (RBC) 12.7 % Normal 11.7-14.[address] [facility] Comment on above: Performed By: #### C BCDFJ ####[place] RODRIGUEZ, [facility] [place], [place] [address] Hematocrit (HCT) 38.3 % Normal 34.1-44.9 [facility] Comment on above: Performed By: #### C BCDFJ ####[place] RODRIGUEZ, [facility] [place], [place] [address] Hemoglobin mass conc (Bld) 12.5 g/dL Normal 11.2-15.7 [facility] Comment on above: Performed By: #### C BCDFJ ####[place] RODRIGUEZ, [facility] [place], [place] [address] Hemoglobin mass conc (Bld) 32.6 g/dL Normal 32.2-35.5 [facility] Comment on above: Performed By: #### C CAITYJ ####[place]uro RODRIGUEZ, [facility] [place] [address] Hemoglobin mass conc (Bld) 28.4 pg Normal 25.6-32.2 [facility] Comment on above: Performed By: #### Missael CAROLINAJ ####Lauro RODRIGUEZ, [facility] [place] [address] IMMATURE GRANS % 0.4 % Normal [facility] Comment on above: Performed By: #### C CAITYJ ####[facility] [place] [address] IMMATURE GRANS ABSOLUTE 0.04 K/uL High 0.00-0.03 [facility] Comment on above: Performed By: #### Missael CAROLINAJ ####[facility] [place] [address] Lymphocytes 3.35 10*3/uL Normal 1.18-3.74 [facility] Comment on above: Performed By: #### C CAITYJ ####[facility] [place] [address] Lymphocytes/100 leukocytes 31.5 % Normal [facility] Comment on above: Performed By: #### C CAITYJ ####[facility] [place] [address] MCV 87.0 fL Normal 79.4-94.8 [facility] Comment on above: Performed By: #### Missael CAROLINAJ ####[facility] [place] [address] Monocytes/100 leukocytes 5.6 % Normal [facility] Comment on above: Performed By: #### C CAITYJ ####[facility] [place] [address] NEUTROPHIL SEGMENTED 61.1 % Normal [facility] Comment on above: Performed By: #### Missael CAROLINAJ ####Lauro RODRIGUEZ, [facility] [place] [address] Nucleated erythrocytes 0.0 /100 WBC Normal 0.0-0.2 [facility] Comment on above: Performed By: #### Missael CAROLINAJ ####Lauro RODRIGUEZ, [facility] [place] [id number] Platelet mean volume (PMV) 10.2 fL Normal 9.4-12.3 [facility] Comment on above: Performed By: #### Missael RESENDIZ ####Lauro RODRIGUEZ, [facility] [place] [address] Platelets 356 10*3/uL Normal 182-369 [facility] Comment on above: Performed By: #### Missael RESENDIZ ####Lauro RODRIGUEZ, [facility] [place] [address] SEGS + Bands,Absolute 6.48 K/uL High 1.56-6.13 [facility] Comment on above: Performed By: #### Missael RESENDIZ ####Lauro RODRIGUEZ, [facility] [place] [address] WBC (Leukocytes) 10.62 10*3/uL High 3.98-10.04 [facility] Comment on above: Performed By: #### Missael RESENDIZ ####Lauro RODRIGUEZ, [facility] [place] [address] CHEM 7 ED - CHRIon 8 Anion gap 14 mmol/L Normal 7-17 [facility] Comment on above: Performed By: #### Missael RESENDIZ ####Lauro RODRIGUEZ, [facility] [place] [address] BUN/Creatinine Ratio 18 mg/mg Normal [facility] Comment on above: Performed By: #### Missael RESENDIZ ####Lauro RODRIGUEZ, [facility] [place] [address] Chloride 106 mmol/L Normal 98-108 [facility] Comment on above: Performed By: #### C BCROSALVAJ ####Lauro RODRIGUEZ, [facility] [place] [address]441 CO2 23 mmol/L Normal 22-30 [facility] Comment on above: Performed By: #### C TIENDFJ ####Lauro RODRIGUEZ, [facility] [place] [address] Creatinine 0.74 mg/dL Normal 0.50-1.20 [facility] Comment on above: Performed By: #### C CAITYJ ####Lauro RODRIGUEZ, [facility] [place] [address] eGFR (non-black) mL/min/{1.73_m2} Normal >60 [facility] Comment on above: Performed By: #### C BCROSALVAJ ####Lauro RODRIGUEZ, [facility] [place], [place] [id number] Glucose mass conc 88 mg/dL Normal 70-99 [facility] Comment on above: Performed By: #### C CAITYJ ####Lauro RODRIGUEZ, [facility] [place] [address] Osmolality 289 mOsm/kg Normal 278-305 [facility] Comment on above: Performed By: #### C BCROSALVAJ ####Lauro RODRIGUEZ, [facility] [place] [address] Potassium molar conc 3.5 mmol/L Normal 3.5-5.0 [facility] Comment on above: Performed By: #### C BCDFJ ####Lauro RODRIGUEZ, [facility] [place], [place] [address] Sodium 139 mmol/L Normal 133-143 [facility] Comment on above: Performed By: #### C BCDFJ ####Lauro RODRIGUEZ, [facility] [place] [address] Urea nitrogen 13 mg/dL Normal 7-22 [facility] Comment on above: Performed By: #### C CAITYJ ####Lauro RODRIGUEZ, [facility] [place] [address] Calcium - CHRIon 03-25-2017 Calcium 9.5 mg/dL Normal 8.6-10.5 [facility] Comment on above: Performed By: #### C CAITYJ ####Lauro RODRIGUEZ, [facility] [place] [address] Inorg Phosphate - CHRIon Inorg Phosphate 2.9 mg/dL Normal 2.2-4.[address] [facility] Comment on above: Performed By: #### C CAITYJ ####Lauro RODRIGUEZ, [facility] [place] [address] [facility] Magnesium 2.0 mg/dL Normal 1.6-2.6 [facility] Comment on above: Performed By: #### C CAITYJ ####Lauro RODRIGUEZ, [facility] [place] [address]78 CBC with Diffon 02-14-2017 Erythrocyte distribution width Auto Ratio (RBC) 12.8 % Normal 11.7-15.0 [facility] Comment on above: Performed By: #### C BCGary ####[facility] [address] Erythrocytes (RBC) 4.61 M/UL Normal 4.0-4.9 [facility] Comment on above: Performed By: #### C BCD ####[address] [address] Hematocrit (HCT) 41.6 % Normal 36-44 [facility] Comment on above: Performed By: #### C BCD ####[address] [address] Hemoglobin mass conc (Bld) 13.2 g/dL Normal 12.0-15.0 [facility] Comment on above: Performed By: #### C TIEND ####[place] [address] [place] [place] [address] MCH 28.6 pg Normal 26-34 [facility] Comment on above: Performed By: #### C BCD ####[facility] LaboratoryVake [place] [address] [place] [address] MCHC mass conc (RBC) 31.7 % Normal 31-37 [facility] Comment on above: Performed By: #### C BCD ####[place] [address] [place] [address] MCV 90.2 fL Normal 80-100 [facility] Comment on above: Performed By: #### C BCD ####[place] [address] [place] [address] RDW-SD 41.7 FL Normal 37.0-54.0 [facility] Comment on above: Performed By: #### C BCD ####[place] [address] [address] [place] [address] AB IMMATURE NEUT 0.02 K/UL Normal 0.0-0.1 [facility] Comment on above: Performed By: #### C BCD ####[place] [address] [address] [place] [address] ABS BASO 0.06 K/UL Normal 0.00-0.22 [facility] Comment on above: Performed By: #### C BCD ####[facility] LaboratoryMichael [place] [address] [address] [place] [address] ABS EOS 0.21 K/UL Normal 0-0.45 [facility] Comment on above: Performed By: #### C BCD ####[place] [address] [address] [place] [address] ABS.NEUT.CALCULATED Normal [facility] Comment on above: Result Comment: NOT MEASUREDPerformed at [facility],[address] [place] [address] Performed By: #### C BCD ####[place] [address] [address] [place] [address] Basophils/100 WBC Auto (Bld) 0.70 % Normal 0-1 [facility] Comment on above: Performed By: #### C BCD ####[facility] LaboratoryLake Pvjm[address] [place] [address] DIFF TYPE AUTO DIFF Normal [facility] Comment on above: Performed By: #### C BCD ####[facility] LaboratoryLake Raia[address] [place] [address] Eosinophils/100 leukocytes 2.50 % Normal 0-3 [facility] Comment on above: Performed By: #### C BCD ####[facility] LaboratoryLake Udkr[address] [place] [address] IMMATURE NEUT % 0.20 % Normal 0.0-1.0 [facility] Comment on above: Performed By: #### C BCD ####[facility] LaboratoryVake Wfry[address] [place] [address] Lymphocytes 2.64 10*3/uL Normal 1.2-3.2 [facility] Comment on above: Performed By: #### C BCD ####[facility] LaboratoryLake Yjfs[address] [place] [address] Lymphocytes/100 leukocytes 30.90 % Normal 20-40 [facility] Comment on above: Performed By: #### C BCD ####[facility] LaboratoryLake Qmzk[address] [place] [address] MEAN PLT VOL 10.5 CU Normal 7.0-12.6 [facility] Comment on above: Performed By: #### C BCD ####[facility] LaboratoryLake Voze[address] [place] [address] Monocytes 0.52 10*3/uL Normal 0-0.8 [facility] Comment on above: Performed By: #### C BCD ####[facility] LaboratoryL[facility] Nlit[address] [place] [address] Monocytes/100 leukocytes 6.10 % Normal 0-8 [facility] Comment on above: Performed By: #### C BCD ####[facility] LaboratoryLake Ddvg[address] [place] [address] Neutrophils 5.09 10*3/uL Normal 1.8-7.7 [facility] Comment on above: Performed By: #### C BCD ####[facility] LaboratoryLake Ncnh[address] [place] [address] Neutrophils/100 leukocytes 59.60 % Normal 50-70 [facility] Comment on above: Performed By: #### C BCD ####[facility] LaboratoryL[facility] Eani[address] [place] [address] Platelets 348 10*3/uL Normal 150-450 [facility] Comment on above: Performed By: #### C BCD ####[facility] LaboratoryLake Ncwp[address] [place] [address] WBC (Leukocytes) 8.5 10*3/uL Normal 4.5-11.0 [facility] Comment on above: Performed By: #### C BCD ####[facility] LaboratoryLake Tvaq[address] [place] [address] COMPREHENSIVE METABOLIC PANE [facility] 02-14-2017 Alanine aminotransferase (ALT) 22 U/L Normal 5-40 [facility] Comment on above: Performed By: #### C CELLAR PUMPER ####[facility] LaboratoryLake Vmjs[address] [place] [address] Albumin 4.8 g/dL Normal 3.5-5.0 [facility] Comment on above: Performed By: #### C CELLAR PUMPER ####[facility] LaboratoryLake Glpu[address] [place] [address] Albumin/Globulin Ratio 1.8 {ratio} Normal 1.5-3.0 [facility] Comment on above: Performed By: #### C CELLAR PUMPER ####[facility] LaboratoryLake Rzqm[address] [place] [address] Alkaline phosphatase (ALP) 53 U/L Normal 35-125 [facility] Comment on above: Performed By: #### C CELLAR PUMPER ####[facility] LaboratoryLake Arsu[address] [place] [address] Anion gap 14 mmol/L Normal 0-19 [facility] Comment on above: Performed By: #### C CELLAR PUMPER ####[facility] LaboratoryLake Oxlc[address] [place] [address] Aspartate aminotransferase (AST) 16 U/L Normal 5-40 [facility] Comment on above: Performed By: #### C CELLAR PUMPER ####[facility] LaboratoryLake Oulg[address] [place] [address] Bilirubin (total) 0.3 mg/dL Normal 0.1-1.2 [facility] Comment on above: Performed By: #### C CELLAR PUMPER ####[facility] LaboratoryVake Lqes[address] [place] [address] BUN/Creatinine Ratio 13.8 RATIO Normal 8-21 [facility] Comment on above: Performed By: #### C CELLAR PUMPER ####[facility] LaboratoryVake [place] [address] [place] [address] Calcium 9.5 mg/dL Normal 8.5-10.4 [facility] Comment on above: Performed By: #### C CELLAR PUMPER ####[facility] LaboratoryMichael [place] [address] [place] [address] Chloride 101 mmol/L Normal 97-107 [facility] Comment on above: Performed By: #### C CELLAR PUMPER ####[facility] LaboratoryMichael [place] [address] [place] [address] CO2 24 mmol/L Normal 24-31 [facility] Comment on above: Performed By: #### C CELLAR PUMPER ####[facility] LaboratoryMichael [place] [address] [place] [address] Creatinine 0.8 mg/dL Normal 0.4-1.6 [facility] Comment on above: Performed By: #### C CELLAR PUMPER ####[place] [address] [place] [address] eGFR (MDRD) Normal [facility] Comment on above: Result Comment: 96GF R ml/min/1.73m2 Stage -----90 160-89 230-59 315-29 4<15 5For -Americans, multiply EGFR result by 1.210Calculation not validated for patients under 18 years of age.Performed at [facility],[address] [place] [address] Performed By: #### C CELLAR PUMPER ####[facility] LaboratoryVake Hzio[address] [place] [address] Globulin 2.7 g/dL Normal 1.9-3.7 [facility] Comment on above: Performed By: #### C CELLAR PUMPER ####[address] [place] [address] Glucose mass conc 82 mg/dL Normal 65-99 [facility] Comment on above: Performed By: #### C CELLAR PUMPER ####[place] [address] [place] [address] Potassium molar conc 4.7 mmol/L Normal 3.4-5.1 [facility] Comment on above: Performed By: #### C CELLAR PUMPER ####[address] [place] [address] Protein 7.5 g/dL Normal 5.9-7.9 [facility] Comment on above: Performed By: #### C CELLAR PUMPER ####[address] [place] [address] Sodium 139 mmol/L Normal 133-145 [facility] Comment on above: Performed By: #### C CELLAR PUMPER ####[address] [place] [address] Urea nitrogen 11 mg/dL Normal 8-25 [facility] Comment on above: Performed By: #### C CELLAR PUMPER ####[address] [address] TSHon 02-14-2017 Thyroid stimulating hormone (TSH) Normal 0.27-4.20 [facility] Comment on above: Result Comment: 1.91 THIS TSH ASSAY HAS A FUNCTIONAL SENSITIVITY OF 0.01 MIU/L. THIS MEETSREQUIREMENTS OF A 3RD GENERATION HIGH SENSITIVE TSH ASSAY.Performed at [facility],[address] [place] [address] Performed By: #### T SHR ####[address] [address] GC/CHLAMYDIA BY AMPon 2016 GC/CHLAMYDIA BY AMP [...] perform high complexitytesting.Per formed at [facility]em[facility] Chao, [address] [place] [address], [address] Comment on above: Performed By: #### G PGCCT ####Artemio Romero[address] [place] [address], [address] [place] [address] Liquid PAPon 02-06-2017 Liquid PAP [facility]: [facility] Rec. #: [id number] CYTOLOGIC DIAGNOSISSPECIMEN ADEQUACY:Satisfactory for evaluation.Endocervic al transformation zone component present.Partial obscuring by inflammation present.GENERAL CATEGORIZATION:Negati ve for intraepithelial lesion or malignancy.See interpretation-result .INTERPRETATION/RESUL T:Negative for intraepithelial lesion or malignancy.The above diagnosis was rendered at [employer], [address] [place] [address], CLIA number [id number].This information is included on the report as [...] this screening test, please call thepathology laboratory. [facility] Comment on above: Performed By: #### 8 [facility] ####[place] [address] [place] [address] Vital Signs Date Time Vital Sign Value Performing Clinician Carolina amin 11-29-2024 09:48-0400 Body height 167.64 cm No Primary Care Physician [facility] 11-29-2024 09:48-0400 Body mass index (BMI) [Ratio] 35.4 kg/m2 No Primary Care Physician [facility] 11-29-2024 09:48-0400 Body weight 99.47 kg No Primary Care Physician [facility] 11-29-2024 09:48-0400 Diastolic blood pressure 75 mm[Hg] No Primary Care Physician [facility] 11-29-2024 09:48-0400 Systolic blood pressure 113 mm[Hg] No Primary Care Physician [facility] 11-02-2024 08:11-0400 Body height 167.64 cm No Primary Care Physician [facility] 11-02-2024 08:07-0400 Body mass index (BMI) [Ratio] 35.5 kg/m2 No Primary Care Physician [facility] 11-02-2024 08:07-0400 Body weight 99.79 kg No Primary Care Physician [facility] 11-02-2024 08:07-0400 Diastolic blood pressure 74 mm[Hg] No Primary Care Physician [facility] 11-02-2024 08:07-0400 Systolic blood pressure 119 mm[Hg] No Primary Care Physician [facility] 10-05-2024 09:56-0400 Body weight 100.06 kg No Primary Care Physician [facility] 10-05-2024 09:56-0400 Diastolic blood pressure 76 mm[Hg] No Primary Care Physician [facility] 10-05-2024 09:56-0400 Systolic blood pressure 134 mm[Hg] No Primary Care Physician [facility] 10-05-2024 09:36-0400 Body height 167.64 cm No Primary Care Physician [facility] 09-06-2024 08:29-0400 Body height 167.64 cm No Primary Care Physician [facility] 09-06-2024 08:29-0400 Body mass index (BMI) [Ratio] 35.9 kg/m2 No Primary Care Physician [facility] 09-06-2024 08:29-0400 Body weight 100.81 kg No Primary Care Physician [facility] 09-06-2024 08:29-0400 Diastolic blood pressure 84 mm[Hg] No Primary Care Physician [facility] 09-06-2024 08:29-0400 Systolic blood pressure 139 mm[Hg] No Primary Care Physician [facility] 08-05-2024 10:38-0400 Body height 167.64 cm No Primary Care Physician [facility] 08-05-2024 10:38-0400 Body mass index (BMI) [Ratio] 36.4 kg/m2 No Primary Care Physician [facility] 08-05-2024 10:38-0400 Body weight 102.51 kg No Primary Care Physician [facility] 08-05-2024 10:38-0400 Diastolic blood pressure 73 mm[Hg] No Primary Care Physician [facility] 08-05-2024 10:38-0400 Systolic blood pressure 123 mm[Hg] No Primary Care Physician [facility] 06-24-2023 14:00-0400 Body temperature 98.2 [degF] No Primary Care Physician [facility] 06-24-2023 14:00-0400 Diastolic blood pressure 80 mm[Hg] No Primary Care Physician [facility] 06-24-2023 14:00-0400 Heart rate 88 /min No Primary Care Physician [facility] 06-24-2023 14:00-0400 Respiratory rate 16 /min No Primary Care Physician [facility] 06-24-2023 14:00-0400 SaO2% (BldA) [Mass fraction] 99 % No Primary Care Physician [facility] 06-24-2023 14:00-0400 Systolic blood pressure 130 mm[Hg] No Primary Care Physician [facility] 06-21-2023 05:58-0400 Body height 167.64 cm No Primary Care Physician [facility] 06-21-2023 05:58-0400 Body mass index (BMI) [Ratio] 37.5 kg/m2 No Primary Care Physician [facility] 06-21-2023 05:58-0400 Body weight 105.68 kg No Primary Care Physician [facility] 06-20-2023 22:01-0400 Diastolic blood pressure 81 mm[Hg] No Primary Care Physician [facility] 06-20-2023 22:01-0400 Heart rate 107 /min No Primary Care Physician [facility] 06-20-2023 22:01-0400 Systolic blood pressure 134 mm[Hg] No Primary Care Physician [facility] 06-20-2023 21:51-0400 Body height 167.64 cm No Primary Care Physician [facility] 06-20-2023 21:51-0400 Body mass index (BMI) [Ratio] 37.5 kg/m2 No Primary Care Physician [facility] 06-20-2023 21:51-0400 Body weight 105.4 kg No Primary Care Physician [facility] 06-19-2023 16:25-0400 Body temperature 97.6 [degF] No Primary Care Physician [facility] 06-19-2023 16:24-0400 Diastolic blood pressure 74 mm[Hg] No Primary Care Physician [facility] 06-19-2023 16:24-0400 Heart rate 86 /min No Primary Care Physician [facility] 06-19-2023 16:24-0400 Systolic blood pressure 131 mm[Hg] No Primary Care Physician [facility] 06-19-2023 16:12-0400 Body height 167.64 cm No Primary Care Physician [facility] 06-19-2023 16:12-0400 Body mass index (BMI) [Ratio] 37.9 kg/m2 No Primary Care Physician [facility] 06-19-2023 16:12-0400 Body weight 106.59 kg No Primary Care Physician [facility] 06-16-2023 08:18-0400 Body mass index (BMI) [Ratio] 37.4 kg/m2 No Primary Care Physician [facility] 06-16-2023 08:18-0400 Body weight 105.23 kg No Primary Care Physician [facility] 06-16-2023 08:18-0400 Diastolic blood pressure 82 mm[Hg] No Primary Care Physician [facility] 06-16-2023 08:18-0400 Systolic blood pressure 129 mm[Hg] No Primary Care Physician [facility] 06-10-2023 08:06-0400 Body mass index (BMI) [Ratio] 37.5 kg/m2 No Primary Care Physician [facility] 06-10-2023 08:06-0400 Body weight 105.68 kg No Primary Care Physician [facility] 06-10-2023 08:06-0400 Diastolic blood pressure 85 mm[Hg] No Primary Care Physician [facility] 06-10-2023 08:06-0400 Systolic blood pressure 131 mm[Hg] No Primary Care Physician [facility] 06-03-2023 08:19-0400 Body mass index (BMI) [Ratio] 37.3 kg/m2 No Primary Care Physician [facility] 06-03-2023 08:19-0400 Body weight 104.94 kg No Primary Care Physician [facility] 06-03-2023 08:19-0400 Diastolic blood pressure 79 mm[Hg] No Primary Care Physician [facility] 06-03-2023 08:19-0400 Systolic blood pressure 131 mm[Hg] No Primary Care Physician [facility] 05-28-2023 16:10-0400 Body height 167.64 cm No Primary Care Physician [facility] 05-28-2023 16:10-0400 Body mass index (BMI) [Ratio] 37.5 kg/m2 No Primary Care Physician [facility] 05-28-2023 16:10-0400 Body weight 105.4 kg No Primary Care Physician [facility] 05-28-2023 16:10-0400 Diastolic blood pressure 81 mm[Hg] No Primary Care Physician [facility] 05-28-2023 16:10-0400 Systolic blood pressure 128 mm[Hg] No Primary Care Physician [facility] 05-13-2023 08:06-0400 Body height 167.64 cm No Primary Care Physician [facility] 05-13-2023 08:06-0400 Body mass index (BMI) [Ratio] 37.1 kg/m2 No Primary Care Physician [facility] 05-13-2023 08:06-0400 Body weight 104.32 kg No Primary Care Physician [facility] 05-13-2023 08:06-0400 Diastolic blood pressure 80 mm[Hg] No Primary Care Physician [facility] 05-13-2023 08:06-0400 Systolic blood pressure 124 mm[Hg] No Primary Care Physician [facility] 04-28-2023 08:23-0400 Body mass index (BMI) [Ratio] 36.6 kg/m2 No Primary Care Physician [facility] 04-28-2023 08:23-0400 Body weight 103.07 kg No Primary Care Physician [facility] 04-28-2023 08:23-0400 Diastolic blood pressure 83 mm[Hg] No Primary Care Physician [facility] 04-28-2023 08:23-0400 Systolic blood pressure 129 mm[Hg] No Primary Care Physician [facility] 04-16-2023 15:38-0500 Body mass index (BMI) [Ratio] 37 kg/m2 No Primary Care Physician [facility] 04-16-2023 15:38-0500 Body weight 104.09 kg No Primary Care Physician [facility] 04-16-2023 15:38-0500 Diastolic blood pressure 80 mm[Hg] No Primary Care Physician [facility] 04-16-2023 15:38-0500 Systolic blood pressure 126 mm[Hg] No Primary Care Physician [facility] 03-27-2023 08:02-0500 Body height 167.64 cm No Primary Care Physician [facility] 03-27-2023 08:02-0500 Body mass index (BMI) [Ratio] 36.6 kg/m2 No Primary Care Physician [facility] 03-27-2023 08:02-0500 Body weight 102.96 kg No Primary Care Physician [facility] 03-27-2023 08:02-0500 Diastolic blood pressure 74 mm[Hg] No Primary Care Physician [facility] 03-27-2023 08:02-0500 Systolic blood pressure 118 mm[Hg] No Primary Care Physician [facility] 02-27-2023 08:09-0500 Body mass index (BMI) [Ratio] 36.3 kg/m2 No Primary Care Physician [facility] 02-27-2023 08:09-0500 Body weight 102.22 kg No Primary Care Physician [facility] 02-27-2023 08:09-0500 Diastolic blood pressure 82 mm[Hg] No Primary Care Physician [facility] 02-27-2023 08:09-0500 Systolic blood pressure 134 mm[Hg] No Primary Care Physician [facility] 01-30-2023 11:58-0500 Body mass index (BMI) [Ratio] 36.2 kg/m2 No Primary Care Physician [facility] 01-30-2023 11:58-0500 Body weight 101.77 kg No Primary Care Physician [facility] 01-30-2023 11:58-0500 Diastolic blood pressure 84 mm[Hg] No Primary Care Physician [facility] 01-30-2023 11:58-0500 Systolic blood pressure 134 mm[Hg] No Primary Care Physician [facility] 12-27-2022 14:39-0500 Body mass index (BMI) [Ratio] 36.5 kg/m2 No Primary Care Physician [facility] 12-27-2022 14:39-0500 Body weight 102.56 kg No Primary Care Physician [facility] 12-27-2022 14:39-0500 Diastolic blood pressure 86 mm[Hg] No Primary Care Physician [facility] 12-27-2022 14:39-0500 Systolic blood pressure 135 mm[Hg] No Primary Care Physician [facility] Encounters Encounter Date Encounter Type Care Provider Facility Start: 11-29-2024 End: 11-29-2024 Patient encounter procedure Kavitha MATHEWS -[facility] Work Phone: Start: 11-29-2024 End: 11-29-2024 ambulatory No Primary Care Physician Facility:[facility] Start: 11-16-2024 End: 11-16-2024 ambulatory MD NO PRIMARY CARE [facility] Start: 11-02-2024 End: 11-02-2024 Patient encounter procedure Liane LOPEZ -[facility] Work Phone: Start: 11-02-2024 End: 11-02-2024 ambulatory No Primary Care Physician [facility] Start: 11-01-2024 End: 11-01-[address] CARE [facility] Start: 10-05-2024 End: 10-05-[address] Latoya Marquez DO -[facility] Work Phone: Start: 10-05-2024 End: 10-05-2024 ambulatory No Primary Care Physician -[facility] Start: 09-06-2024 End: 09-06-[address] Mickie Murray MD -[facility] Work Phone: Start: 09-06-2024 End: 09-06-2024 ambulatory No Primary Care Physician -[facility] Start: 09-06-2024 End: 09-06-2024 ambulatory No Primary Care Physician Facility:[facility] Start: 08-05-2024 End: 08-05-2024 ambulatory No Primary Care Physician [facility] Work Phone: Start: 08-05-2024 End: 08-05-2024 Patient encounter procedure Kavitha Boyer CNM -[facility] Work Phone: Start: 08-05-2024 End: 08-05-2024 Patient encounter procedure Kavitha Boyer CNM -[facility] Work Phone: Start: 08-05-2024 End: 08-05-2024 ambulatory No Primary Care Physician [facility] Work Phone: Start: 08-05-2024 End: 08-05-2024 ambulatory Kavitha Merlin Facility:[facility] Start: 06-24-2023 Non-patient / Non-visit No Julia Casanova Physician [facility] Start: 06-23-2023 Non-patient / Non-visit No Julia rodriguez [facility] Physician [facility] Start: 06-22-2023 Non-patient / Non-visit No Julia Casanova Physician [facility] Start: 06-21-2023 End: 06-24-2023 Evaluation and management of inpatient No Primary Care Physician [facility] Work Phone: Start: 06-21-2023 Non-patient / Non-visit No Julia Casanova Physician [facility] Start: 06-20-2023 End: 06-20-2023 ambulatory No Primary Care Physician [facility] Work Phone: Start: 06-20-2023 End: 06-20-2023 Patient encounter procedure No Primary Care Physician [facility] Work Phone: Start: 06-19-2023 Non-patient / Non-visit No Julia Casanova Physician [facility] Start: 06-19-2023 End: 06-19-2023 ambulatory No Primary Care Physician [facility] Work Phone: Start: 06-19-2023 End: 06-19-2023 Patient encounter procedure No Primary Care Physician [facility] Work Phone: Start: 06-16-2023 End: 06-16-2023 Patient encounter procedure No Primary Care Physician [facility] Work Phone: Start: 06-10-2023 End: 06-10-2023 Patient encounter procedure No Primary Care Physician [facility] Work Phone: Start: 06-03-2023 End: 06-03-2023 Patient encounter procedure No Primary Care Physician [facility] Work Phone: Start: 05-28-2023 End: 05-28-2023 ambulatory No Primary Care Physician [facility] Work Phone: Start: 05-28-2023 End: 05-28-2023 Patient encounter procedure No Primary Care Physician [facility]Labor[facility] Spec[facility] Work Phone: Start: 05-28-2023 End: 05-28-2023 Patient encounter procedure No Primary Care Physician [facility] Work Phone: Start: 05-13-2023 End: 05-13-2023 ambulatory No Primary Care Physician [facility] Work Phone: Start: 05-13-2023 End: 05-13-2023 Patient encounter procedure No Primary Care Physician [facility] Work Phone: Start: 04-28-2023 End: 04-28-2023 Patient encounter procedure No Primary Care Physician [facility] Work Phone: Start: 04-16-2023 End: 04-16-2023 Patient encounter procedure No Primary Care Physician [facility] Work Phone: Start: 03-27-2023 End: 03-27-2023 ambulatory No Primary Care Physician [facility] Work Phone: Start: 03-27-2023 End: 03-27-2023 Patient encounter procedure No Primary Care Physician [facility] Work Phone: Start: 03-05-2023 End: 03-05-2023 Subsequent hospital visit by physician Xiao Horowitz MD Work Phone: [facility] Comment on above: Screening, , for malformation by ultrasound Start: 02-27-2023 End: 02-27-2023 Patient encounter procedure No Primary Care Physician [facility] Work Phone: Start: 01-30-2023 End: 01-30-2023 Patient encounter procedure No Primary Care Physician [facility] Work Phone: Start: 12-27-2022 End: 12-27-2022 Patient encounter procedure No Primary Care Physician [facility] Work Phone: Start: 12-12-2022 End: 12-12-2022 Patient encounter procedure No Primary Care Physician [facility] Start: 05-30-2021 End: 05-30-2021 ambulatory Yareli Lemus MD Work Phone: Neurology Comment on above: Procedure test results Start: 05-30-2021 E-mail encounter fro m caregiver Yareli Lemus MD Work Phone: [facility] Start: 05-30-2021 End: 05-30-2021 Patient encounter procedure Autonomic 1 Neur Main Work Phone: [facility] Start: 05-28-2021 End: 05-28-2021 ambulatory Autonomic Main Neurology Comment on above: Procedure Start: 05-28-2021 End: 05-28-2021 Patient encounter procedure Autonomic 2 Neur Main [facility] Start: 04-29-2017 Ambulatory LAINEY Myers ity:[facility] Jared Emery Start: 03-24-2017 End: 03-25-2017 Emergency department patient visit EV SIDDIQUI [facility] Start: 02-14-2017 Ambulatory RACHEL VALENCIA Facdiego lity:UNKNOWN Start: 02-06-2017 Ambulatory GABRI[facility]LLA DUARTE [facility] Procedures Date Procedure Procedure Detail Performing Clinician [...] HCV Quant by PCR testing - HCVPCR #[id number] Non Reactive: < 0.8 Equivocal: >/= 0.8 to < 1.0 Reactive: >/= 1.0The CDC requires that a reactive/equivocal HCV antibody result be sent out for confirmation. HCV Quant by PCR testing. Start: 09-06-2024 Rubella IgG measurement No Primary Care Physician Comment on above: Antibody Result: Int erpretationNon-Reactive: Non- ImmuneReactive: ImmuneThe following results were obtained with the [employer] Rubella IgG assay. Results from assays of [...] section Previous c esarean section Dr. Latoya Marquez DO H/O: section Previous c esarean section Liane Archer [employer]-C H/O: section Previous c esarean section Kavitha Boyer CNM Plan of Treatment Date Care Activity Detail Author Start: 11-29-2024 Measurement of glucose 2 hours after glucose challenge for glucose tolerance test [facility] Start: 11-29-2024 Serologic test for syphilis [facility] Start: 11-29-2024 [facility] Start: 11-02-2024 CBC W Auto Differential panel - Blood [facility] Start: 11-02-2024 Comprehensive metabolic 2000 panel - Serum or Plasma [facility] Start: 11-02-2024 Protein/Creatinine [Ratio] in Urine [facility] Start: 09-06-2024 CBC W Auto Differential panel - Blood [facility] Start: 09-06-2024 Hemoglobin A1c/Hemoglobin.total in Blood [facility] Start: 09-06-2024 Hepatitis C antibody measurement [facility] Start: 09-06-2024 Rubella IgG measurement [facility] Start: 09-06-2024 Serologic test for syphilis [facility] Start: 09-06-2024 [facility] Start: 06-24-2023 Patient discharge [facility] Start: 06-22-2023 Application of abdominal corset [facility] Start: 06-22-2023 [facility] Start: 06-22-2023 Administration of blood product [facility] Start: 06-22-2023 Administration of blood product [facility] Start: 06-22-2023 Transfusion of blood product [facility] Start: 06-22-2023 Transfusion of red blood cells [facility] Start: 06-21-2023 Administration of medication [facility] Start: 06-21-2023 Ambulation therapy management [facility] Start: 06-21-2023 Application of device [facility] Start: 06-21-2023 End: 06-21-2023 Application of intermittent pneumatic compression device [facility] Start: 06-21-2023 Assessment of risk of venous thromboembolism [facility] Start: 06-21-2023 Catheterization of vein [facility] Start: 06-21-2023 Deep breathing and coughing exercises [facility] Start: 06-21-2023 Exercises [facility] Start: 06-21-2023 Measuring intake and output [facility] Start: 06-21-2023 Notification of physician [facility] Start: 06-21-2023 Procedure discontinued [facility] Start: 06-21-2023 Provision of activity privileges [facility] Start: 06-21-2023 Skin care [facility] Start: 06-21-2023 Vital signs measurements [facility] Start: 06-21-2023 Wound care [facility] Start: 06-21-2023 Application of abdominal corset [facility] Start: 06-21-2023 End: 06-21-2023 [facility] Start: 06-21-2023 Admission procedure [facility] Start: 06-20-2023 Nonstress test [facility] Start: 06-20-2023 Obstetric monitoring [facility] Start: 06-20-2023 Vital signs measurements [facility] Start: 06-20-2023 End: 06-21-2023 [facility] Start: 06-20-2023 Patient discharge [facility] Start: 06-19-2023 Nonstress test [facility] Start: 06-19-2023 Obstetric monitoring [facility] Start: 06-19-2023 Vital signs measurements [facility] Start: 06-19-2023 [facility] Start: 2022 FLU (#1) FLU (#1) [facility] Start: 04-11-2022 Adult depression screening assessment DEPRESSION SCREENING [facility] Start: 2021 Influenza vaccination INFLUENZA (Season Ended) [facility] Start: 10-17-2016 Microscopic observation [Identifier] in Cervix by Cyto stain Pap Smear [facility] Start: 10-17-2016 PAP TESTING PAP TESTING [facility] Start: 10-17-2014 Urine microalbumin profile DTAP,TDAP,TD (1 - Tdap) [facility] Start: 2011 MenB (1 of 2 - MenB 2-Dose Series Bexsero) MenB (1 of 2 - MenB 2-Dose Series Bexsero) [facility] Start: 10-17-2009 PEDS TO ADULT TRANSITION ANNUAL ASSESSMENT PEDS TO ADULT TRANSITION ANNUAL ASSESSMENT [facility] Start: 2007 PEDS TO ADULT TRANSITION INITIAL DISCUSSION PEDS TO ADULT TRANSITION INITIAL DISCUSSION [facility] Start: 10-17-2006 HPV VACCINE (1 - 2-dose series) HPV VACCINE (1 - 2-dose series) [facility] Start: 10-17-2002 Tetanus Diphtheria and Pertussis Vaccines (1 - Tdap) Tetanus Diphtheria and Pertussis Vaccines (1 - Tdap) [facility] Start: 10-17-2000 COVID-19 VACCINE (1) COVID-19 VACCINE (1) [facility] Start: 10-17-1996 MMR (1 of 1 - Standard series) MMR (1 of 1 - Standard series) [facility] Start: 10-17-1996 Varicella (1 of 2 - 2-dose childhood series) Varicella (1 of 2 - 2-dose childhood series) [facility] Start: 04-16-1996 COVID-19 (#1) COVID-19 (#1) [facility] Start: 1995 Hepatitis B (1 of 3 - 3-dose series) Hepatitis B (1 of 3 - 3-dose series) [facility] Alanine aminotransfe rase [Enzymatic activity/volume] in Serum or Plasma [facility] Albumin [Mass/volume ] in Serum or Plasma [facility] Alkaline phosphatase [Enzymatic activity/volume] in Serum or Plasma [facility] Anion gap in Serum o r Plasma [facility] Bilirubin, total measurement [facility] BUN/Creatinine ratio [facility] Calcium [Mass/volume ] in Serum or Plasma [facility] Carbon dioxide, tota l [Moles/volume] in Central venous blood [facility] CBC W Auto Different ial panel - Blood [facility] CBC W Auto Different ial panel - Blood [facility] Chlamydia deoxyribon ucleic acid detection [facility] CMV IgG Ab CMV IgG Ab Lab R outine Screening, , for malformation by ultrasound 03/05/2023 4:[address] [facility] CMV IgM Ab CMV IgM Ab Lab R outine Screening, , for malformation by ultrasound 03/05/2023 4:[address] [facility] Creatinine [Mass/vol ume] in Serum or Plasma [facility] Creatinine [Mass/vol ume] in Urine collected for unspecified duration [facility] Erythrocyte mean corpuscular volume determination [facility] Erythrocyte mean corpuscular volume determination [facility] Glucose [Mass/volume ] in Serum or Plasma [facility] Hematocrit [Volume Fraction] of Blood [facility] Hematocrit [Volume Fraction] of Blood [facility] Hemoglobin [Mass/vol ume] in Blood [facility] Hemoglobin [Mass/vol ume] in Blood [facility] Hemoglobin A1c/Hemoglobin.total in Blood [facility] Hepatitis B virus chicas rface Ag [Presence] in Serum [facility] Hepatitis C antibody measurement [facility] Leukocytes [#/volume ] in Blood [facility] Leukocytes [#/volume ] in Blood [facility] Mean corpuscular hem oglobin concentration determination [facility] Mean corpuscular hem oglobin concentration determination [facility] Mean corpuscular hem oglobin determination [facility] Mean corpuscular hem oglobin determination [facility] Measurement of renal function [facility] Neutrophil count [facility] Neutrophil count [facility] Neutrophil percent differential count [facility] Neutrophil percent differential count [facility] Patient Education [facility] Work Phone: Patient referral [facility] Work Phone: Platelets [#/volume] in Blood [facility] Platelets [#/volume] in Blood [facility] Potassium measurement [facility] Protein [Mass/volume ] in Urine [facility] Protein/Creatinine [ Mass Ratio] in Urine [facility] Red blood cell count [facility] Red blood cell count [facility] Red cell distributio n width determination [facility] Red cell distributio n width determination [facility] Rubella IgG measurement [facility] Serologic test for syphilis [facility] Serum chloride measurement [facility] Sodium measurement [facility] Total protein measurement [facility] Toxoplasma IgM Ab Toxoplasma IgM Ab Lab Routine Screening, , for malformation by ultrasound 03/05/2023 4:05 PM EST [facility] Work Phone: Urea nitrogen [Mass/ volume] in Serum or Plasma [facility]izations Immunization Date Immunization Notes Care Provider Fa cility 05-13-2023 tetanus toxoid, redu gail diphtheria toxoid, and acellular pertussis vaccine, adsorbed No Primary Care Physician [facility] Payers Date Payer Category Payer Self-pay [id number] 2024 Unknown [id number] 2022 Unknown [employer] [id number] 2022-Present [address] [place] [address] [id number] 2020 Unknown [employer] PPO [id number] 2020-Present [phone] [address] [place] [address] PPO [id number] 2017 Private Health Insurance [id number] 1995 Unknown [id number] 1995 Unknown [id number] Private Health Insurance [id number] Private Health Insurance [id number] Unknown [id number] Unknown [id number] Unknown [id number] Unknown [id number] Unknown [id number] Unknown [id number] Unknown [id number] Unknown [id number] Social History Date Type Detail Facility Start: 01-21-2017 End: 08-05-2024 Tobacco smoking status NHIS Never smoked tobacco [facility] Start: 01-21-2017 End: 03-05-2023 Tobacco use and exposure Smokeless tobacco non-user [facility] Start: 04-13-2021 Alcohol intake Ex-drinker (finding) [facility] Start: 1995 Sex Assigned At Female C [facility] Start: 04-23-2021 End: 05-03-2021 Exposure to SARS-CoV-2 (event) Not sure [facility] Start: 03-05-2023 Alcohol intake Lifetime non-d kalin (finding) [facility] Start: 03-05-2023 History of Social function [facility] Start: 03-05-[address] [facility] Start: 09-29-2022 [facility] Start: 1995 Sex Assigned At Not on file [facility] Start: 03-27-2023 End: 06-21-2023 Tobacco smoking status NHIS Unknown if ever smoked [facility] Sexual Orientation Heterosexual (finding) [facility] Medical Equipment Procedure Code Equipment Code Equipment [...] Assessment Result Facility 06-22-2023 Cognitive function Voice/Name [facility] Work Phone: Clinical Notes 11-13-2020 to 11-29-2024 Note Date & Type Note Facility 11-29-2024 Progress note [facility] 11-02-2024 Progress note [facility] 10-05-2024 Progress note [facility] 09-06-2024 Evaluation note Diagnosis Onset [...] 9:45am Supervision of high-risk acute November 9:45am [facility] Work Phone: 1(974) 729-614206-19-2025 Evaluation note* Diagnosis Onset Date Resolution Status Admit Date H/O hemorrhage, currently acute August 05 10:36am Obesity affecting acute August 05, 2024 10:36am acute August 05 10:36am Previous section acute August 05, 2024 10:36am Supervision of high-risk acute August 05, 2024 10:36am [facility] [facility] Work Phone: 1(298) 914-963606-19-2025 Evaluation note* Diagnosis Onset Date Resolution Status [...] of high-risk acute September 06, 2024 8:24am [facility] Work Phone: 1(907) 877-290706-19-2025 Evaluation note* Diagnosis Onset Date Resolution Status [...] Supervision of high-risk acute October 05 9:11am [facility] Work Phone: 1([phone]) 307-336006-19-2025 Evaluation note* Diagnosis Onset Date Resolution Status [...] of high-risk acute November 02, 2024 8:04am [facility] Work Phone: 1([phone]) 368-812705-07-2024 Discharge summary Author Liane Archer [facility] June 24, 2023 7:48am Note Date/Time June 24, 2023 7:48am [facility] Medical Records Department [address] [place] [address] Discharge Summary 06/24/23 0745 MR#: [id number] Acct: [id number] Name: KARLA TUTTLE Rep #:[id number] : 1995 27 From: Liane Archer NP INSTRUCTION LIBRARIAN-C PCP: Care Physician,No Primary Status :ADM IN Location: [place] [address] Providers Date of Admission: 06/21/23 Primary Care [...] no.1 1 mg-dha 300 mg capsule (PNV- Standish) 1 cap PO DAILY 11/26/22 Hospital Course [...] Up With: Latoya Marquez DO When: Call [phone] to make an appointment for an incision [...] Physician,No Primary Discharge Orders/Prescriptions Prescriptions: No Action PNV-Standish 28-1-300 mg capsule 1 cap PO DAILY Referrals / Follow Up: Care Physician,No Primary [Primary Care Provider] - 06/24/23 0748 <Electronically signed by Liane Archer NP INSTRUCTION LIBRARIAN-C> Cosigner Signature (if applicable): CC: INSTRUCTION LIBRARIAN-C Liane Archer; No Primary Care Physician~ Signed [facility] Work Phone: 1([phone]) 532-701605-07-2024 Progress note Author Liane Archer [facility] June 24, 2023 7:45am Note Date/Time June 24, 2023 7:46am [facility] Medical Records Department [address] [place] [address] Progress Note - OBGYN 06/24/23 0743 MR#: [id number] Acct: [id number] Name: KARLA TUTTLE Rep #:[id number] : 1995 27 From: Liane Archer NP INSTRUCTION LIBRARIAN-C PCP: Care Physician,No Primary Status :ADM IN Location: [place] [address]1 Subjective Subjective Patient doing well without complaints. [...] 0745 <Electronically signed by Liane Archer NP INSTRUCTION LIBRARIAN-C> Cosigner Signature (if applicable): CC: ~ Signed [facility] Work Phone: 1(229) 392-117205-06-2024 Progress note Author Kavitha Boyer [facility] June 23, 2023 8:09am Note Date/Time June 23, 2023 8:09am [facility] Medical Records Department [address] [place] [address] Progress Note - OBGYN 06/23/23 0808 MR#: [id number] Acct: [id number] Name: KARLA TUTTLE Rep #:[id number] : 1995 27 From: Kavitha Boyer CNM PCP: Care Physician,No Primary Status :ADM IN Location: [place] [address]1 Subjective Subjective Patient doing well without complaints. [...] 77.4 H, Lymph % (Auto) 13.2 L, [place] % (Auto) 6.6, Eos % (Auto) 1.6, [...] of normal first , second trimester COMMENT: [id number], FLOR 06/22/23,girl Paige Alberto (10) : QUALIFIERS: Weeks of gestation: 39 weeks Qualified Code(s): Z3A.39 - 39 weeks gestation of COMMENT: Neg GBS. declined genetic & carrier testing Charges/Coding Multi Select Codes Urinary/Genital Urinary/Genital CPT Codes: No Charge 06/23/23 0809 <Electronically signed by Kavitha Boyer CNM> Cosigner Signature (if applicable): CC: ~ Signed [facility] Work Phone: 1(318) 951-267105-05-2024 Progress note Author Trish Beckman [facility] June 22, 2023 10:15am Note Date/Time June 22, 2023 10:03a m [facility] Medical Records Department [address] [place] [address] Progress Note - OBGYN 06/22/23 0958 MR#: [id number] Acct: [id number] Name: KARLA TUTTLE Rep #:[id number] : 1995 27 From: Trish Beckman CNM PCP: Care Physician,No Primary Status :ADM IN Location: [place] [address] Subjective Subjective Patient doing well without complaints. [...] 82.0 H, Lymph % (Auto) 8.9 L, [place] % (Auto) 7.7, Eos % (Auto) 0.0, [...] (Auto) 88.8 H, Lymph % (Auto) 4.5L, [place] % (Auto) 5.8, Eos % (Auto) 0.2, [...] Cosigner Signature (if applicable): CC: ~ Signed [facility] Work Phone: 1(644) 187-855605-04-2024 History and physical note Author Trish Beckman [facility] June 21, 2023 6:28pm Note Date/Time June 21, 2023 6:19pm [facility] Medical Records Department [address] [place] [address] H&P Exam - [place] 06/21/23 1815 MR#: [id number] Acct: [id number] Name: KARLA TUTTLE Rep #:[id number] : 1995 27 From: Tirsh Beckman CNM PCP: Care Physician,No Primary Status :ADM IN Location: [place]-7 HPI - General General Date of Admission: [...] no.1 1 mg-dha 300 mg capsule (PNV- Standish) 1 cap PO DAILY 11/26/22 [History Last Taken 06/20/23] Allergy/AdvReac Type Severity Reaction Status Date / Time No Known Allergies Allergy Verified 06/21/23 06:47 Family History Grandmother Breast cancer, Onset Age: 70 Paternal Thyroid disorder Paternal- hyperthyroid Aunt Cancer Maternal - thyroid Surgical History [place] teeth removed Social History adopted: No household members: spouse current occupational status: employed current occupation: [employer] current occupational exposures/hazards: No pets and animals: [...] physical activity do you participate in: none tez/sikhism: None seatbelt use: always do you feel safe at home: Yes 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 06/03/23 -?-?-?-?-?-?-?-?-?-?-?-?- 37w 2d 231 lb 6 [...] of normal first , second trimester COMMENT: [id number], FLOR 06/22/23,girl Paige Alberto (2) : QUALIFIERS: [...] any complications: none I have reviewed the [facility] and made any clinically relevant updates. Dr. Pastrana updated on admission, exam and poc at 0531. delayed H&P 06/21/238 <Electronically signed by Trish Beckman CNM> Cosigner Signature (if applicable): CC: MARISOL Beckman; No Primary Care Physician~ Signed [facility] Work Phone: 1([phone]) 319-297805-04-2024 Discharge summary Author Latoya Newman [facility] June 21, 2023 6:22pm Note Date/Time June 21, 2023 6:22pm [facility] Medical Records Department [address] [place] [address] Instructions for Home/Discharge Instructions 06/21/23 1822 MR#: [id number] Acct: [id number] Name: KARLA TUTTLE Rep #:[id number] : [...] Up With: Latoya Marquez DO When: Call [phone] to make an appointment for an incision check in 1-2 weeks. Test Results: Test results from this visit will be discussed in further detail at your follow- up appointment, if applicable. Discharge Plan Admission Admit Date/Time: 06/21/23 05:26 Attending Provider: Latoya Marquez Primary Care Provider: Edilberto PhysicianNajma Primary Discharge Orders/Prescriptions Prescriptions: No Action PNV-Standish 28-1-300 mg capsule 1 cap PO DAILY Referrals / Follow Up: Edilberto Physician,Najma Primary [Primary Care Provider] - 06/21/23 1822<Electronically signed by Latoya Marquez DO>Latoya Marquez DO CC: No Primary Care Physician ~ Signed [facility] Work Phone: 1([phone]) 417-503205-04-2024 Procedure [facility] 06-21-2023 Procedure [facility]05-04-2024 Consult note Author Trish Beckman [facility] June 21, 2023 2:44pm Note Date/Time June 21, 2023 2:44pm [facility] Medical Records Department [address] [place] [address] Consultation 06/21/23 1435 MR#: [id number] Acct: [id number] Name: KARLA TUTTLE Rep #:[id number] : 1995 27 From: Trish Beckman CNM PCP: Edilberto [place],No Primary Status :ADM IN Location: [id number] Consult Date of Consult: 06/21/23 Assessment & Plan Assessment/Plan (1) Maternal fever affecting labor: PLAN: Plan pt fully dilated, second stage developed tachycardia to 180, maternal tempto 100.5. IV fluids, and Tylenol provided. current tracing: FHT: Moderate variability reactive no decelerations category II tracing, tachycardia trending downward to 165 baseline. [place]: q3.5 minutes Contractions reviewed tracing abnormalities since [...] applicable): CC: No Primary Care Physician~ Signed [facility] Work Phone: 1(643) [phone] NoteHNO ID: [id number] Author: Kaitlin Montilla APRN.CNM Service: ? Author Type: Platform Power Technician Type: Progress Notes Filed: 07/09/2021 10:31 AM Note Text: Karla is a 25 year old No [...] OB History No obstetric history on file. 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 Author Type: [...] of Care Visit completed when applicable. [facility] History of Present illness Narrative* Dolly Bermudez [...] when applicable. Dolly Bermudez [facility]22 NoteHNO ID: [id number] Author: Naila Berry Service: ? Author Type: [...] of Care Visit completed when applicable. Naila AguilarnadegeOhio[facility]04-11-2022 History of Present illness Narrative* Naila Rodriges [...] when applicable. Naila Aguilarnadege [facility]-2022 NoteHNO ID: [id number] Author: RT Ronnell(R) Service: ? Author Type: [...] BY: RT Ronnell(R) May 01, 2021 2:40 [facility]02-25-2022 NoteHNO ID: [id number] Author: Yareli Lemus MD Service: ? Author Type: Physician Type: Progress Notes Filed: 04/13/2021 10:33 AM Note Text: General Neurology Outpatient Clinic - new patient evaluation Date: April 13, 2021 Patient Name: Karla Tuttle Referring physician: Shelley Ovreton [address] [facility] [address] [facility] [address] Primary [place]: [place] [address] [place] [address] Reason for Evaluation: lightheadedness HPI: The pt [...] table evaluation but those records are unavailable. 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 Author [...] injection (DEFINITY) INTRAVENOUS DIRECTED PRN Rachel Moon, ROLLER ENGRAVER.FUNERAL HOME ATTENDANT - sodium chloride 0.9 % (flush) 10 mL (BD POSIFLUSH) 10 mL INTRAVENOUS DIRECTED PRN Rachel Moon APRN.FUNERAL HOME ATTENDANT Review of Systems Constitutional: Negative for chills, [...] and oriented t (more content not included)... [facility]01-03-2022 NoteHNO ID: [id number] Author: Sehlley Overton APRN.MAGALIS Service: ? Author Type: Nurse Practitioner Type: Progress Notes Filed: 02/21/2021 10:15 AM Note Text: [facility] SE[facility]IONAL CARDIOLOGY Cardiology ([place] ([facility] [address] [facility] [id number] OUTPATIENT VISIT February 19, 2021 2:00 PM [...] injection (DEFINITY) INTRAVENOUS DIRECTED PRN Rachel Moon APRN.FUNERAL HOME ATTENDANT - sodium chloride 0.9 % (flush) 10 mL (BD POSIFLUSH) 10 mL INTRAVENOUS DIRECTED PRN Rachel Moon APRN.FUNERAL HOME ATTENDANT Review of Systems Constitutional: Negative for chills, [...] kg) Physical Exam HENT: (more content not included)...[facility]10-01-2021 NoteHNO ID: [id number] Author: Ashlee Golden MD Service: Interventional Cardiology Author Type: Physician Type: Procedures Filed: 12/21/2020 10:21 AM Note Text: Patient Name: Karla Tuttle : 1995 Ordering Provider: RACHEL MOON Indication: R00.2 Palpitations Type of Monitor: Extended Monitoring-Zio Patch Enrollment Dates: 11/23/2020-12/07/2020[facility]-27[facility]2021 Note HNO ID: [id number] Author: Rachel Moon APRN.FUNERAL HOME ATTENDANT Service: ? Author Type: Nurse Practitioner Type: [...] happen when standing up. Tilt table through [facility]. Dr. Natalio perry/ [facility]. Neurology. Has never had an echo. Has [...] 1.1 MG/ML INJECTION IN (more content not included)...[facility] Diagnosis Paresthesia of skin- Primary Disturbance of skin sensation Orthostatic lightheadedness Dizziness and giddiness [facility] Diagnosis Orthostatic lightheadedness- Primary Dizziness and giddiness [facility] Diagnosis Screening, , for malformation by ultrasound Encounter for routine screening for malformation using ultrasonics [facility] Diagnosis Onset Date Resolution Status Obesity affecting , antepartum acute acute Supervision of normal first acute Obesity affecting , antepartum acute acute Supervision of normal first acute Abnormal ultrasound ac [place] Obesity affecting , antepartum acute acute Supervision of normal first acute Abnormal ultrasound ac [place] Anemia in preg-unspec acute Obesity affecting , antepartum acute acute Supervision of normal first acute [facility] Work Phone: Evaluation note* Diagnosis Onset Date Resolution Status Obesity affecting , antepartum acute acute Supervision of normal first acute Abnormal ultrasound ac [place] Obesity affecting , antepartum acute acute Supervision of normal first acute Abnormal ultrasound ac [place] Anemia in preg-unspec acute Obesity affecting , antepartum acute acute Supervision of normal first acute Abnormal ultrasound ac [place] Abnormal glucose complicating childbirth acute Anemia in preg-unspec acute Obesity affecting , antepartum acute acute Supervision of normal first acute Abnormal ultrasound ac [place] Abnormal glucose complicating childbirth acute Anemia in preg-unspec acute Obesity affecting , antepartum acute acute Supervision of normal first acute Abnormal ultrasound ac [place] Abnormal glucose complicating childbirth acute Anemia in preg-unspec acute Obesity affecting , antepartum acute acute Supervision of normal first acute [facility] Work Phone: Evaluation note* Diagnosis Onset Date Resolution Status Abnormal ultrasound ac [place] Obesity affecting , antepartum acute acute Supervision of normal first acute Abnormal ultrasound ac [place] Anemia in preg-unspec acute Obesity affecting , antepartum acute acute Supervision of normal first acute Abnormal ultrasound ac [place] Abnormal glucose complicating childbirth acute Anemia in preg-unspec acute Obesity affecting , antepartum acute acute Supervision of normal first acute Abnormal ultrasound ac [place] Abnormal glucose complicating childbirth acute Anemia in preg-unspec acute Obesity affecting , antepartum acute acute Supervision of normal first acute Abnormal ultrasound ac [place] Abnormal glucose complicating childbirth acute Anemia in preg-unspec acute Obesity affecting , antepartum acute acute Supervision of normal first acute Abnormal ultrasound ac [place] Abnormal glucose complicating childbirth acute Anemia in preg-unspec acute Obesity affecting , antepartum acute acute Supervision of normal first acute [facility] Work Phone: Evaluation note* Diagnosis Onset Date Resolution Status Abnormal ultrasound ac [place] Obesity affecting , antepartum acute acute Supervision of normal first acute Abnormal ultrasound ac [place] Anemia in preg-unspec acute Obesity affecting , antepartum acute acute Supervision of normal first acute Abnormal ultrasound ac [place] Abnormal glucose complicating childbirth acute Anemia in preg-unspec acute Obesity affecting , antepartum acute acute Supervision of normal first acute Abnormal ultrasound ac [place] Abnormal glucose complicating childbirth acute Anemia in preg-unspec acute Obesity affecting , antepartum acute acute Supervision of normal first acute Abnormal ultrasound ac [place] Abnormal glucose complicating childbirth acute Anemia in preg-unspec acute Obesity affecting , antepartum acute acute Supervision of normal first acute Abnormal ultrasound ac [place] Abnormal glucose complicating childbirth acute Anemia in preg-unspec acute Obesity affecting , antepartum acute acute Supervision of normal first acute Abnormal ultrasound ac [place] Abnormal glucose complicating childbirth acute Anemia in preg-unspec acute Obesity affecting , antepartum acute acute Supervision of normal first acute Abnormal ultrasound ac [place] Abnormal glucose complicating childbirth acute Anemia in preg-unspec acute Obesity affecting , antepartum acute acute Supervision of normal first acute Abnormal ultrasound ac [place] Abnormal glucose complicating childbirth acute Anemia in preg-unspec acute Obesity affecting , antepartum acute acute Supervision of normal first acute [facility] Work Phone: Evaluation note* Diagnosis Onset Date [...] acute resolved Supervision of normal first resolved [facility] Work Phone: Evaluation noteNo assessment information available [facility] Work Phone: Progress note Author Mickie Murray [facility] June 19, 2023 5:15pm Note Date/Time June 19, 2023 5:15pm [facility] Medical Records Department [address] [facility] [place] [address] OB Triage Progress Note 06/19/231713 MR#: [id number] Acct: [id number] Name: KARLA TUTTLE Rep #:[id number] : 1995 27 From: Mickie obrien MD PCP: Care Physician,No Primary Status :REG CLI Y DOS: Location: [place] [address] Progress Notes Progress Note: Patient presents for triage evaluation secondary to decresaed movement FHT: 140 Moderate variability reactive no decelerations category I tracing [place]: irregular Contractions Assessment and plan: decreased movement- now feeling some, Reactive NST, reassuring maternal and status patient discharged to home to follow-up as scheduled, reviewed kick count precautions. See problem list details for additional plan information. Charges/Coding Procedures Urinary/Genital 52xxx-59xxx: 82333-19 non-stress test Interp 06/19/231714 <Electronically signed by Mickie armenta MD> Date _ Mickie Murray MD Cosigner Signature (if applicable): Date CC: Dr. Mickie Murray MD; No Primary Care Physician ~ Signed [facility] Work Phone: Progress note Author Latoya Newman [facility] Note Date/Time October 05, 2024 9: 56am [facility] [address], [address] [place] [address] OFFICE VISIT Date of Service: 10/05/24 MR#: [id number] Acct: [id number] Name: DWAINKARLA PONCE Rep #: [id number] : 1995 Provider: Dr. Gauri Marquez DO Age/Sex: 28/F Location: [facility] Status: Signed Intake Vital Signs 08/05/24 10:38 09/06/24 08:29 10/05/24 09:36 10/05/24 09:56 Height 5 ft 6 in 5 ft 6 in 5 ft 6 in Weight: 220 lb 9.6 oz BP 134/76 H Intake Visit Reasons: 15wk ob Human Factors Ergonomist Required: No Is patient in pain?: No Allergies No Known Allergies Allergy (Verified 10/05/24 09:36) Medications ?Medication ?Instructions ?Recorded ?Confirmed ?Type multivit-min no.71-iron fum 28 1 cap PO DAILY pregnanc y 11/26/22 10/05/24 History mg-folate no.1 1 mg-dha 300 mg capsule (PNV-Standish) Last Menstrual Period: 06/02/24 Zika: Zika virus screening: Negative : No PFSH PFSH Medical History Anemia in preg-unspec Chorioamnionitis, delivered, current hospitalization hemorrhage delivery delivered False labor Abnormal ultrasound Congenital abnormality ureter Surgical History Previous section [place] teeth removed Family History Grandmother Breast cancer, Onset Age: 70 Paternal Thyroid disorder Paternal- hyperthyroid Aunt Cancer, Onset Age: 53 Maternal - thyroid Social History adopted: No household members: spouse housing: house number of children: 1 current occupational status: employed current occupation: [employer] current occupational exposures/hazards: No pets and animals: [...] frequency: does not exercise duration: 45-60 minutes/day tez/sikhism: None seatbelt use: always do you feel safe at home: Yes 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 Date Name GA/Weeks Outcome Route Bth Weight Infant Gen Labor Lgth Anesthesia Del Locatn Provider FOB 06/21/23 Paige 39 live - full term 6#12 Female [facility] Dr. Hidalgo Delivery Date: 06/21/23 Last Updated [...] and Symptoms of Preeclampsia, Feeding No , [place] Education and Family Medical Leave or Disability [...] Cosigner Signature: Date (if applicable) CC: ~ [facility] Work Phone: Progress note Author Liane Archer [facility] Note Date/Time November 02, 2024 8:36am [facility] [address] [place] [address], [address] [place] [address] OFFICE VISIT Date of Service: 11/02/24 MR#: [id number] Acct: [id number] Name: KARLA DEGROOT Rep #: [id number] : 1995 Provider: JESSICA Archer Age/Sex: 29/F Location: [facility] Status: Signed Intake Vital Signs 08/05/24 10:38 10/05/24 09:36 11/02/24 08:07 11/02/24 08:11 Height 5 ft 6 in 5 ft 6 in 5 ft 6 in 5 ft 6 in Weight: 220 lb BMI 35.5 BP 119/74 Intake Visit Reasons: 20wk ob Chief Complaint: 20 Week OB Human Factors Ergonomist Required: No Is patient in pain?: No Allergies No Known Allergies Allergy (Verified 11/02/24 08:06) Medications ?Medication ?Instructions ?Recorded ?Confirmed ?Type multivit-min no.71-iron fum 28 1 cap PO DAILY pregnanc y 11/26/22 11/02/24 History mg-folate no.1 1 mg-dha 300 mg capsule (PNV-Standish) Last Menstrual Period: 06/02/24 Zika: Zika virus screening: Negative : No PFSH PFSH Medical History Anemia in preg-unspec Chorioamnionitis, delivered, current hospitalization hemorrhage delivery delivered False labor Abnormal ultrasound Congenital abnormality ureter Surgical History Previous section [place] teeth removed Family History Grandmother Breast cancer, Onset Age: 70 Paternal Thyroid disorder Paternal- hyperthyroid Aunt Cancer, Onset Age: 53 Maternal - thyroid Social History adopted: No household members: spouse housing: house number of children: 1 current occupational status: employed current occupation: [employer] current occupational exposures/hazards: No pets and animals: [...] frequency: does not exercise duration: 45-60 minutes/day tez/sikhism: None seatbelt use: always do you feel safe at home: Yes 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 Date Name GA/Weeks Outcome Route Bth Weight Infant Gen Labor Lgth Anesthesia Del Locatn Provider FOB 06/21/23 Paige 39 live - full term 6#12 Female [facility] Dr. Marquez Alberto Delivery Date: 06/21/23 Last [...] Symptoms of Preeclampsia, Infant Feeding No , [place] Education and Family Medical Leave or Disability [...] 0836 <Electronically signed by Liane sunshine NP INSTRUCTION LIBRARIAN-C> Date _ Liane Archer NP INSTRUCTION LIBRARIAN-C Cosigner Signature: Date (if applicable) CC: ~ [facility] Work Phone: Progress note Author Kavitha Boyer [facility] Note Date/Time November 29, 2024 1 0:04am [facility] [address] [place] [address], [address] [place] [address] OFFICE VISIT Date of Service: 11/29/24 MR#: [id number] Acct: [id number] Name: KARLA DEGROOT Rep #: [id number] : 1995 Provider: MARISOL Boyer Age/Sex: 29/F Location: [facility] Status: Signed Intake Vital Signs 11/02/24 08:11 11/29/24 09:48 Height 5 ft 6 in 5 ft 6 in Weight: 219 lb 5 oz BMI 35.4 BP 113/75 Intake Visit Reasons: 24wk ob *move 01/11 appt Chief Complaint: 24wk OB Human Factors Ergonomist Required: No Is patient in pain?: No Allergies No Known Allergies Allergy (Verified 11/29/24 09:47) Medications ?Medication ?Instructions ?Recorded ?Confirmed ?Type multivit-min no.71-iron fum 28 1 cap PO DAILY pregnanc y 11/26/22 11/29/24 History mg-folate no.1 1 mg-dha 300 mg capsule (PNV-Standish) Last Menstrual Period: 06/02/24 : No Have you fallen in the past year?: No PFSH PFSH Medical History Anemia in preg-unspec Chorioamnionitis, delivered, current hospitalization hemorrhage delivery delivered False labor Abnormal ultrasound Congenital abnormality ureter Surgical History Previous section [place] teeth removed Family History Grandmother Breast cancer, Onset Age: 70 Paternal Thyroid disorder Paternal- hyperthyroid Aunt Cancer, Onset Age: 53 Maternal - thyroid Social History adopted: No household members: spouse housing: house number of children: 1 current occupational status: employed current occupation: [employer] current occupational exposures/hazards: No pets and animals: [...] frequency: does not exercise duration: 45-60 minutes/day tez/sikhism: None seatbelt use: always do you feel safe at home: Yes 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 Date Name GA/Weeks Outcome Route Bth Weight Gen Labor Lgth Anesthesia Del Locatn Provider FOB 06/21/23 Paige 39 live - full term 6#12 Female [facility] Dr. Hidalgo Delivery Date: 06/21/23 Last Updated [...] Cosigner Signature: Date (if applicable) CC: ~ [facility] Work Phone: Reason for referral (narrative)No reason for referral information [facility] Work Phone: Summary Purpose Family History [...] No September 20, 2020 4:48pm Power of Overhead Cleaner Maintainer No September 20 4:48pm Advance Directive Response Recorded Date/ Time Living Will No September 20, 2020 5:48pm Power of Overhead Cleaner Maintainer No September 20 5:48pm Advance Directive Response Recorded Date/ Time Living Will No June 21, 2023 6: 01am Power of Overhead Cleaner Maintainer No June 21, 2023 6:01am Medications Administered [...] section and content) DATE CREATED AUTHOR 08/08/[address] [facility] DATE CREATED AUTHOR AUTHOR'S ORGANIZ ATION 08/11/2017 [facility] DATE CREATED AUTHOR AUTHOR'S ORGANIZ ATION 08/12/2017 [facility] DATE CREATED AUTHOR AUTHOR'S ORGANIZ ATION 07/18/2021 [facility] DATE CREATED AUTHOR AUTHOR'S ORGANIZ ATION 11/21/2024 [facility] DATE CREATED AUTHOR AUTHOR'S ORGANIZ ATION 11/30/2024 [facility] Source Comments (unrecognize d section and content) In the event this informatio n is protected by the Federal Confidentiality of Alcohol and Drug Abuse Patient Records regulations: The Federal rules restrict any use of the information to criminally investigate or prosecute any alcohol or drug abuse patient.[facility] the event this information is protected by the Federal Confidentiality of Alcohol and Drug Abuse Patient Records regulations: The Federal rules restrict any use of the information to criminally investigate or prosecute any alcohol or drug abuse patient.[facility] the event this information is protected by the Federal Confidentiality of Alcohol and Drug Abuse Patient Records regulations: The Federal rules restrict any use of the information to criminally investigate or prosecute any alcohol or drug abuse patient.[facility] Reason for Visit (unrecogniz ed section and content) Reason Comments Procedure Specialty Diagnoses / Procedures Referred By Cha owens Referred To Contact Neurology / NEUROMUSCULAR Diagnoses Encounter for general adult medical examination without abnormal findings VM QSARt Procedures TESTING AUTONOMIC NERVOUS SYSTEM FUNCTION NEUR QSART Yareli Lemus MD [address] [place] [address] [facility] [address] [place] [address] Referral ID Status Reason Start Date Expiration Date Visits Requested Visits Authorized [id number] Authorized Clearance Not Met - Admin/Chairm an/Director Advise to Postpone/Res chedule or Not Proceed 04/18/2021 05/08/2022 4 4 Care Teams (unrecognized sec tion and content) Financial Planning Adviser Relationship Specialty Start Date End Date Wanda Fritz [address] [place] [address] PCP - General Pediatrics 01/21/17 Financial Planning Adviser Relationship Specialty Start Date End Date Wanda Fritz [id number] [place], [place] [id number] PCP - General Pediatrics 01/21/17 Financial Planning Adviser Relationship Specialty Start Date End Date Wanda Fritz [id number] [place] [address] PCP - General Pediatrics 01/21/17 Financial Planning Adviser Relationship Specialty Start Date End Date No Primary Care, [place] [address] PCP - General Pediatrics 01/30/23 Team Status: [...] Provider, Refer ring Provider Active Liane Archer INSTRUCTION LIBRARIAN, INSTRUCTION LIBRARIAN-C Attending Provider Active Team Status: Inactive Member Role Status Dates No Primary Care Physician Primary Care Provider Active Dr. Mickie Murray MD Attending Provider, Referr ing Provider Active Team Status: Inactive Member Role Status Dates No Primary Care Physician Primary Care Provider Active Liane Archer INSTRUCTION LIBRARIAN, INSTRUCTION LIBRARIAN-C Attending Provider, Referring Provider Active Team Status: [...] Provider, Other Pr ovider Active Liane Archer INSTRUCTION LIBRARIAN, INSTRUCTION LIBRARIAN-C Attending Provider Active Team Status: Inactive Member [...] 2024 End: November 02, 2024 Liane Archer INSTRUCTION LIBRARIAN, INSTRUCTION LIBRARIAN-C Attending Provider Active Start: November 02, 2024 End: November 02, 2024 Team Status: Active Member Role/Relationship Status Dates No Primary Care Physician Primary Care Provider Active Start: November 02, 2024 Liane Archer INSTRUCTION LIBRARIAN, INSTRUCTION LIBRARIAN-C Attending Provider Active Start: November 02, 2024 Liane Archer INSTRUCTION LIBRARIAN, INSTRUCTION LIBRARIAN-C Referring Provider Active Start: November 02, 2024 [...] 02, 2024 End: November 02, 2024 Liane rAcher INSTRUCTION LIBRARIAN, INSTRUCTION LIBRARIAN-C Attending physician Active Start: November 02, 2024 End: November 02, 2024 Team Status: Inactive Member Role/Relationship Status Dates No Primary Care Physician Primary care physician Activ e Start: November 02, 2024 End: November 02, 2024 Liane Archer NP, INSTRUCTION LIBRARIAN-C Attending physician Active Start: November 02, 2024 End: November 02, 2024 Liane Archer INSTRUCTION LIBRARIAN, INSTRUCTION LIBRARIAN-C Referring Provider Active Start: November 02, 2024 [...] 2024 End: November 02, 2024 Liane Archer INSTRUCTION LIBRARIAN, INSTRUCTION LIBRARIAN-C Attending physician Active Start: November 02, 2024 End: November 02, 2024 Team Status: Inactive Member Role/Relationship Status Dates No Primary Care Physician Primary care physician Activ e Start: November 02, 2024 End: November 02, 2024 Liane Archer INSTRUCTION LIBRARIAN, INSTRUCTION LIBRARIAN-C Attending physician Active Start: November 02, 2024 End: November 02, 2024 Liane Archer INSTRUCTION LIBRARIAN, INSTRUCTION LIBRARIAN-C Referring Provider Active Start: November 02, 2024 [...] BE BASED ON THE PRIMARY CLINICAL RECORDS. [employer] [facility] provides no warranty or guarantee of the accuracy or completeness of information in this document.
--- OUTSIDE RECORDS SUMMARY | 2025-02-03 19:05 | XMS RPT_ITS | CCD ---
Author Organization [facility] Care Team Providers Care Last Chalker Name Role Phone LAINEY LEE Unavailable Unavailable LAINEY LEE Unavailable Unavailable Patience Lance Unavailable UnavailWanda Umanzor Unavailable Unavailable LAINEY LEE A Unavailable Unavailable LAINEY LEE A Unavailable Unavailable Patience Lance Unavailable Unavailshreyas e Wanda Fritz Unavailable Unavailable EV SIDDIQUI Unavailable Unavailable GABREILLA DUARTE Unavailable Unavailable WANDA FRITZ S Unavailable Unavailable RACHEL VALENCIA Unavailable Unavailable LAM WANDA S Unavailable Unavailable Stephen Fritza Ash Primary Care Provider No economic development manager, Md Primary Care Provider Pattie vailable Care Physician, No Primary Primary Care Provider Unavailable Care Physician, No Primary Referring Provider Un available Dr. Latoya Marquez Attending Provider [phone] Gianni RELIABILITY TECHNICIAN, RELIABILITY TECHNICIAN-C Liane Attending Provider [phone] Care Physician, No Primary Primary Care Provider Unavailable Care Physician, No Primary Referring Provider Un available Gianni RELIABILITY TECHNICIAN, RELIABILITY TECHNICIAN-C Liane Attending Provider [phone] Latoya Marquez Attending Provider [phone] MARISOL Boyer Attending Provider [phone] Care Physician, No Primary Primary Care Provider Unavailable Care Physician, No Primary Referring Provider Un available Gianni RELIABILITY TECHNICIAN, RELIABILITY TECHNICIAN-C Liane Attending Provider [phone] Dr. Mickie Murray Attending Provider [phone] Dr. Mickie Murray Referring Provider [phone] Dr. Mickie Murray Other Provider [phone] MARISOL Beckman Attending Provider [phone] MARISOL Beckman Other Provider Dr. Latoya Marquez Admit Provider Dr. Latoya Marquez Other Provider Care Physician, No Primary Primary Care Provider Unavailable Care Physician, No Primary Referring Provider Un available Kavitha Boyer CNM Attending Provider [phone] Kavitha Boyer CNM Referring Provider [phone] Nolan SENA, Dr. Corado Attending Provider [phone] Dr. Latoya Marquez DO Attending Provider Gianni RELIABILITY TECHNICIAN-CLiane Attending Provider [phone] Gianni RELIABILITY TECHNICIAN-C, Liane Referring Provider [phone] Care Physician, No Primary Primary Care Physicia n Unavailable Kavitha Boyer CNM Attending Physician [phone] Nolan SENA, Dr. Corado Attending Physician Dr. Latoya Marquez DO Attending Physician Gianni RELIABILITY TECHNICIAN-CLiane Attending Physician [phone] PRIMARY CARE, MD [...] No Primary Primary Care Unava ilable Gianni RELIABILITY TECHNICIAN, Liane Attending Unavailable Gianni RELIABILITY TECHNICIANLiane Referring Unavailable Care Physician, No Primary Primary Care Physicia n Unavailable Care Physician, No Primary Referring Provider Un available Kavitha Boyer CNM Attending Physician Medications Current Medications Medication Drug Class(es) Dates Sig (Normalized) Sig (Original) Mv-Mins 06-Iqyb-Zcowl No.1-Dha (Pnv-Reed) 28-1-300 mg capsule (14 sources) Start: 11-26-2022 Mv-Mins 12-Nvya-Klckv No.1-Dha (Pnv-Reed) 28-1-300 mg capsule Active 1 NMA PO DAILY November 26, 2022 12:00am Complies with drug therapy Start: 11-26-2022 Start: 11-26-2022 Mv-Mins 71-Iro n-Folic No.1-Dha (Pnv-Reed) 28-1-300 mg capsule Active 1 NMA PO DAILY November 26, 2022 12:00am Start: 11-26-2022 Mv-Mins 71-Iro n-Folic No.1-Dha (Pnv-Reed) 28-1-300 mg capsule Active 1 NMA PO DAILY November 26, 2022 12:00am Start: 11-26-2022 take 1 capsule by mo ut once daily Mv-Mins 50-Irdl-Wzakz No.1-Dha (Pnv-Reed) 28-1-300 mg capsule Active 1 CAP PO DAILY November 26, 2022 12:00am Start: 11-26-2022 take 1 capsule by mouth once M v-Mins 62-Ccua-Tofva No.1-Dha (Pnv-Reed) 28-1-300 mg capsule Active CAP PO November 26, 2022 12:00am Start: 11-26-2022 take 1 capsule by mouth once M v-Mins 62-Uxhw-Wqhyy No.1-Dha (Pnv-Reed) 28-1-300 mg capsule Active CAP PO November [...] 2023 12:00am July 08, 2023 11:04am nystatin 932991 unt/ml topical cream (8 sources) Polyene Antifungal [...] unspecified trimester] 01-30-2023 Episodic Comment on above: CKGT0C4, FLOR 06/22/23, girl Paige Alberto discussed NIPT [...] Onset: 04-29-2017 Unclassified (1 source) 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 / [...] 02-06-2017 Episodic Unclassified (1 source) 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; Translations: [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] Onset: 02-06-2017 NEGATED: Highlighted row has been ruled out!Unclassified (1 source) No known active problems 03-05-2023 Results Test Name Value Interpretation Reference Range Facil [facility] Laboratory - Chemistry and C hemistry - challengeOrdered By: Kavitha Boyer on 11-29-2024 Glucose Ql (U) Negative [facility] Laboratory - UrinalysisOrder ed By: Kavitha Boyer on 11-29-2024 Protein Ql (U) Negative [facility] Office Visit Reporton 11-29-2024 [facility] Office Visit Report [facility]'s [address], [address] [place] [address] OFFICE VISIT Date of Service: 11/29/24 MR#: [id number] Acct: [id number] Name: KARLA DEGROOT Rep #: [id number] : 1995 Provider: MARISOL Durham ams Age/Sex: 29/F Location: [facility] Status: Signed Intake Vital Signs 11/02/24 08:11 11/29/24 09:48 Height 5 ft 6 in 5 ft 6 in Weight: 219 lb 5 oz BMI 35.4 BP 113/75 Intake Visit Reasons: 24wk ob *move 01/11 appt Chief Complaint: 24wk OB Sap Bobj Developer Required: No Is patient in pain?: No Allergies No Known Allergies Allergy (Verified 11/29/24 09:47) Medications ???Medication ???Instructions ???Recorded ???Confirmed ???Type multivit-min no.71-iron fum 28 1 cap PO DAILY 11/26/22 11/29/24 History mg-folate no.1 1 mg-dha 300 mg capsule (PNV-Reed) Last Menstrual Period: 06/02/24 : No Have you fallen in the past year?: No PFSH PFSH Medical History Anemia in preg-unspec Chorioamnionitis, delivered, current hospitalization hemorrhage delivery delivered False labor Abnormal ultrasound Congenital abnormality ureter Surgical History Previous section [place] teeth removed Family History Grandmother Breast cancer, Onset Age: 70 Paternal Thyroid disorder Paternal- hyperthyroid Aunt Cancer, Onset Age: 53 Maternal - thyroid Social History adopted: No household members: spouse housing: house number of children: 1 current occupational status: employed current occupation: [employer] current occupational exposures/hazards: No pets and animals: [...] frequency: does not exercise duration: 45-60 minutes/day tez/islam: None seatbelt use: always do you feel safe at home: Yes additional social history: 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 Date Name GA/Weeks Outcome Route Bth Weight Infant Gen Labor Lgth Anesthesia Del Locatn Provider FOB 06/21/23 Paige 39 live - full term 6#[address] [facility] Dr Ramya Hidalgo Delivery Date: 06/21/23 Last [...] lb 9.6 (more content not included)... Normal [facility] Absolute lymphocyte countOrd ered By: Liane Archer on 11-02-2024 Lymphocytes Auto (Unsp spec) [#/Vol] 1.92 10*3/uL 0.83-4.51 [facility] Absolute neutrophil countOrd ered By: Liane Archer on 11-02-2024 Neutrophils (Bld) [#/Vol] 5.5 10*3/uL 2.0-7.7 [facility] Anion gap in Serum or Plasma Ordered By: Liane Archer on 11-02-2024 Anion gap [Moles/Vol] 12 mmol/L 5-15 [facility] Automated lymphocyte count a s percentage of total leukocytesOrdered By: Liane Archer on 11-02-2024 Lymphocytes/100 WBC Auto (Unsp spec) 23.9 % 19-41 [facility] BUN/creatinine ratioOrdered By: Liane Archer on 11-02-2024 Urea nitrogen/Creatinine [Mass ratio] 11.8 mg/mg 10-20 [facility] Basophil percentageOrdered B y: Liane Archer on 11-02-2024 Basophils/100 WBC (Bld) 0.5 % 0-[address] [facility] Bilirubin, totalOrdered By: Liane Archer on 11-02-2024 Bilirubin [Mass/Vol] 0.21 mg/dL 0.00-1.30 [facility] CBC W/Diff, Automatedon 10-18 Absolute Lymph 1.92 X10 3/uL Normal 0.83-4.51 [facility] Comment on above: Performed By: #### L 501.0900, L500.4050, L100.0100 ####[facility] [address] [place], [address] Absolute Neut 5.5 X10 3/uL Normal 2.0-7.7 [facility] Comment on above: Performed By: #### L 501.0900, L500.4050, L100.0100 ####[facility] [address] [place], [address] Basophils/100 WBC (Bld) 0.5 % Normal 0-[address] [facility] Comment on above: Performed By: #### L 501.0900, L500.4050, L100.0100 ####[facility] [address] [place], [address] Eosinophils/100 WBC (Bld) 1.4 % Normal 0-5 [facility] Comment on above: Performed By: #### L 501.0900, L500.4050, L100.0100 ####[facility] [address] [place], [address] Erythrocyte distribution width (RBC) [Ratio] 13.2 % Normal 11.6-14.6 [facility] Comment on above: Performed By: #### L 501.0900, L500.4050, L100.0100 ####[facility] [address] [place], [address] Hematocrit (Bld) [Volume fraction] 31.8 % Low 37-47 [facility] Comment on above: Performed By: #### L 501.0900, L500.4050, L100.0100 ####[facility] [address] [place], [address] Hemoglobin (Bld) [Mass/Vol] 10.9 g/dL Low 12.0-15.0 [facility] Comment on above: Performed By: #### L 501.0900, L500.4050, L100.0100 ####[facility] [address] [place], [address] IG% 0.500 Normal 0.0-0.9 [facility] Comment on above: Result Comment: IG% - Immature Granulocytes (promyelocytes, myelocytes and metamyelocytes) > 1% indicates that a LEFT SHIFT is Present. Performed By: #### L 501.0900, L500.4050, L100.0100 ####[facility] [address] [place], [address] Lymphocytes/100 WBC (Bld) 23.9 % Normal 19-41 [facility] Comment on above: Performed By: #### L 501.0900, L500.4050, L100.0100 ####[facility] [address] [place], [address] MCH (RBC) [Entitic mass] 30.3 pg Normal 27.0-32.0 [facility] Comment on above: Performed By: #### L 501.0900, L500.4050, L100.0100 ####[facility] [address] [place], [address] MCHC (RBC) [Mass/Vol] 34.3 g/dL Normal 32-36 [facility] Comment on above: Performed By: #### L 501.0900, L500.4050, L100.0100 ####[facility] [address] [place], [address] MCV (RBC) [Entitic vol] 88.3 fL Normal 81-99 [facility] Comment on above: Performed By: #### L 501.0900, L500.4050, L100.0100 ####[facility] [address] [place], [address] Monocytes/100 WBC (Bld) 5.5 % Normal 0-[address] [facility] Comment on above: Performed By: #### L 501.0900, L500.4050, L100.0100 ####[facility] [address] [place], [address] Neutrophils/100 WBC (Bld) 68.2 % Normal 47-70 [facility] Comment on above: Performed By: #### L 501.0900, L500.4050, L100.0100 ####[facility] [address] [place], [address] Nucleated RBC (Bld) [#/Vol] 0 10*3/uL Normal 0-5 [facility] Comment on above: Performed By: #### L 501.0900, L500.4050, L100.0100 ####[facility] [address] [place], [address] Platelet mean volume (Bld) [Entitic vol] 10.5 fL Normal 6.2-12.0 [facility] Comment on above: Performed By: #### L 501.0900, L500.4050, L100.0100 ####[facility] [address] [place], [address] Platelets (Bld) [#/Vol] 265 10*3/uL Normal 150-450 [facility] Comment on above: Performed By: #### L 501.0900, L500.4050, L100.0100 ####[facility] [address] [place], [address] RBC (Bld) [#/Vol] 3.60 10*6/uL Low 4.2-5.4 [facility] Comment on above: Performed By: #### L 501.0900, L500.4050, L100.0100 ####[facility] [address] [place], [address] RDW SD 42.5 fl Normal 35.1-43.9 [facility] Comment on above: Performed By: #### L 501.0900, L500.4050, L100.0100 ####[facility] [address] [place], [address] WBC (Bld) [#/Vol] 8.0 10*3/uL Normal 4.4-11.0 [facility] Comment on above: Performed By: #### L 501.0900, L500.4050, L100.0100 ####[facility] [address] [place], [address] Carbon dioxide, total [Moles /volume] in Central venous bloodOrdered By: Liane Archer on 11-02-2024 CO2 [Moles/Vol] 18.6 mmol/L Low 21.0-32.0 [facility] Chloride assayOrdered By: Charlie Archer on 11-02-2024 Chloride [Moles/Vol] 106 mmol/L 98-108 [facility] Comprehensive Metabolic Prof ilon 11-02-2024 Albumin [Mass/Vol] 3.8 g/dL Normal 3.5-5.0 [facility] Comment on above: Performed By: #### L 501.0900, L500.4050, L100.0100 ####[facility] [address] [place], [address] Albumin/Globulin [Mass ratio] 1.4 {ratio} Normal 0.9-2.4 [facility] Comment on above: Performed By: #### L 501.0900, L500.4050, L100.0100 ####[facility] [address] [place], [address] ALK PHOS 41 U/L Normal 35-104 [facility] Comment on above: Performed By: #### L 501.0900, L500.4050, L100.0100 ####[facility] [address] [place], [address] ALT [Catalytic activity/Vol] 9 U/L Normal <=34 [facility] Comment on above: Performed By: #### L 501.0900, L500.4050, L100.0100 ####[facility] [address] [place], [address] AST [Catalytic activity/Vol] 13 U/L Normal <=31 [facility] Comment on above: Performed By: #### L 501.0900, L500.4050, L100.0100 ####[facility] [address] [place], [address] Bilirubin [Mass/Vol] 0.21 mg/dL Normal 0.00-1.30 [facility] Comment on above: Performed By: #### L 501.0900, L500.4050, L100.0100 ####[facility] [address] [place], [address] BUN/CRE 11.8 RATIO Normal 10-20 [facility] Comment on above: Performed By: #### L 501.0900, L500.4050, L100.0100 ####[facility] [address] [place], [address] Calcium [Mass/Vol] 9.1 mg/dL Normal 7.6-11.0 [facility] Comment on above: Performed By: #### L 501.0900, L500.4050, L100.0100 ####[facility] [address] [place], [address] Chloride [Moles/Vol] 106 mmol/L Normal 98-108 [facility] Comment on above: Performed By: #### L 501.0900, L500.4050, L100.0100 ####[facility] [address] [place], [address] CO2 [Moles/Vol] 18.6 mmol/L Low 21.0-32.0 [facility] Comment on above: Performed By: #### L 501.0900, L500.4050, L100.0100 ####[facility] [address] [place], [address] Creatinine [Mass/Vol] 0.49 mg/dL Low 0.70-1.20 [facility] Comment on above: Performed By: #### L 501.0900, L500.4050, L100.0100 ####[facility] [address] [place], [address] GAP 12 Normal 5-15 [facility] Comment on above: Performed By: #### L 501.0900, L500.4050, L100.0100 ####[facility] [address] [place], [address] GFR/1.73 sq M.predicted among non-blacks MDRD (S/P/Bld) [Vol rate/Area] 131 mL/min/{1.73_m2} Normal >60 [facility] Comment on above: Result Comment: mL/m in/1.73m2 CKD-EPI Creatinine Equation (2020) Performed By: #### L 501.0900, L500.4050, L100.0100 ####[facility] [address] [place], [address] Globulin (S) [Mass/Vol] 2.7 g/dL Normal 2.2-4.2 [facility] Comment on above: Performed By: #### L 501.0900, L500.4050, L100.0100 ####[facility] [address] [place], [address] Glucose [Mass/Vol] 85 mg/dL Normal 70-99 [facility] Comment on above: Performed By: #### L 501.0900, L500.4050, L100.0100 ####[facility] [address] [place], [address] Potassium [Moles/Vol] 3.8 mmol/L Normal 3.3-5.1 [facility] Comment on above: Performed By: #### L 501.0900, L500.4050, L100.0100 ####[facility] [address] [place], [address] Sodium [Moles/Vol] 136 mmol/L Normal 133-145 [facility] Comment on above: Performed By: #### L 501.0900, L500.4050, L100.0100 ####[facility] [address] [place], [address] T PROT 6.5 g/dL Normal 5.9-8.4 [facility] Comment on above: Performed By: #### L 501.0900, L500.4050, L100.0100 ####[facility] [address] [place], [address] Urea nitrogen [Mass/Vol] 6 mg/dL Normal 4-19 [facility] Comment on above: Performed By: #### L 501.0900, L500.4050, L100.0100 ####[facility] [address] [place], [address] Eosinophil percentageOrdered By: Liane Archer on 11-02-2024 Eosinophils/100 WBC (Bld) 1.4 % 0-5 [facility] Erythrocyte distribution wid th ratioOrdered By: Liane Archer on 11-02-2024 Erythrocyte distribution width (RBC) [Ratio] 13.2 % 11.6-14.6 [facility] Erythrocyte distribution wid th standard deviationOrdered By: Liane Archer on 11-02-2024 Erythrocyte distribution width (RBC) [Ratio] 42.5 fl 35.1-43.9 [facility] Glomerular filtration rate ( GFR) estimation/1.73 sq m using serum, plasma, or whole bOrdered By: Liane Archer on 11-02-2024 GFR/1.73 sq M.predicted among non-blacks MDRD (S/P/Bld) [Vol rate/Area] 131 mL/min/{1.73_m2} >60 [facility] Comment on above: mL/min/1.73m2 CKD-EP I Creatinine Equation (2020) Hematocrit Auto (Bld) [Volum e fraction]Ordered By: Liane Archer on 11-02-2024 Hematocrit (Bld) [Volume fraction] 31.8 % Low 37-47 [facility] Hemoglobin measurementOrdere d By: Liane Archer on 11-02-2024 Hemoglobin (Bld) [Mass/Vol] 10.9 g/dL Low 12.0-15.0 [facility] Immature granulocytes/100 WB C Auto (Bld)Ordered By: Liane Archer on 11-02-2024 Immature granulocytes/100 WBC (Bld) 0.500 % 0.0-0.9 [facility] Comment on above: IG% - Immature Granu locytes (promyelocytes, myelocytes and metamyelocytes) > 1% indicates that a LEFT SHIFT is Present. Laboratory - Chemistry and C hemistry - challengeOrdered By: Liane Archer on 11-02-2024 AST [Catalytic activity/Vol] 13 U/L <32 [facility] Glucose Ql (U) Negative [facility] Laboratory - UrinalysisOrder ed By: Liane Archer on 11-02-2024 Protein Ql (U) Trace [facility] MCV (mean corpuscular volume ) determinationOrdered By: Liane Archer on 11-02-2024 MCV (RBC) [Entitic vol] 88.3 fL 81-[address] [facility] Mean corpuscular hemoglobin (MCH) determinationOrdered By: Liane Archer on 11-02-2024 MCH (RBC) [Entitic mass] 30.3 pg 27.0-32.0 [facility] Mean corpuscular hemoglobin concentration (MCHC) determinationOrdered By: Liane Archer on 11-02-2024 MCHC (RBC) [Mass/Vol] 34.3 g/dL 32-36 [facility] Mean platelet volume determi nationOrdered By: Liane Archer on 11-02-2024 Platelet mean volume (Bld) [Entitic vol] 10.5 fL 6.2-12.0 [facility] Monocyte percentageOrdered B y: Liane Archer on 11-02-2024 Monocytes/100 WBC (Bld) 5.5 % 0-[address] [facility] Neutrophil percentageOrdered By: Liane Archer on 11-02-2024 Neutrophils/100 WBC (Bld) 68.2 % 47-70 [facility] Nucleated red blood cell per centageOrdered By: Liane Archer on 11-02-2024 Nucleated RBC/100 WBC (Bld) [Ratio] 0 % 0-5 [facility] Tanner Office Visit Reporton 11-02-2024 [facility] Office Visit Report [facility]'s [address], [address] [place] [address] OFFICE VISIT Date of Service: 11/02/24 MR#: [id number] Acct: [id number] Name: KARLA DEGROOT Rep #: [id number] : 1995 Provider: JESSICA ortega Age/Sex: 29/F Location: [facility] [place] Status: Signed Intake Vital Signs 08/05/24 10:38 10/05/24 09:36 11/02/24 08:07 11/02/24 08:11 Height 5 ft 6 in 5 ft 6 in 5 ft 6 in 5 ft 6 in Weight: 220 lb BMI 35.5 BP 119/74 Intake Visit Reasons: 20wk ob Chief Complaint: 20 Week OB Sap Bobj Developer Required: No Is patient in pain?: No Allergies No Known Allergies Allergy (Verified 11/02/24 08:06) Medications ???Medication ???Instructions ???Recorded ???Confirmed ???Type multivit-min no.71-iron fum 28 1 cap PO DAILY 11/26/22 11/02/24 History mg-folate no.1 1 mg-dha 300 mg capsule (PNV-Reed) Last Menstrual Period: 06/02/24 Zika: Zika virus screening: Negative : No PFSH PFSH Medical History Anemia in preg-unspec Chorioamnionitis, delivered, current hospitalization hemorrhage delivery delivered False labor Abnormal ultrasound Congenital abnormality ureter Surgical History Previous section [place] teeth removed Family History Grandmother Breast cancer, Onset Age: 70 Paternal Thyroid disorder Paternal- hyperthyroid Aunt Cancer, Onset Age: 53 Maternal - thyroid Social History adopted: No household members: spouse housing: house number of children: 1 current occupational status: employed current occupation: [employer] current occupational exposures/hazards: No pets and animals: [...] frequency: does not exercise duration: 45-60 minutes/day tez/islam: None seatbelt use: always do you feel safe at home: Yes additional social history: 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 Date Name GA/Weeks Outcome Route Bth Weight Gen Labor Lgth Anesthesia Del Locatn Provider FOB 06/21/23 Paige 39 live - full term 6#[address] [facility] Dr Ramya Hidalgo Delivery Date: 06/21/23 Last [...] -???-???-???-???-???- ???-??? (more content not included)... Normal [facility] Platelet countOrdered By: Charlie Archer on 11-02-2024 Platelets (Bld) [#/Vol] 265 10*3/uL 150-450 [facility] Potassium measurement (mass/ volume)Ordered By: Liane Archer on 11-02-2024 Potassium (Unsp spec) [Mass/Vol] 3.8 mmol/L 3.3-5.1 [facility] Protein+Creatinine Ratio,Uri neon 11-02-2024 PROT:CRE RATIO 186 mg/g CRE Normal 0-200 [facility] Comment on above: Performed By: #### L 501.0900, L500.4050, L100.0100 ####[facility] [address] [place], [address] Protein (U) [Mass/Vol] 29.2 mg/dL High 0.0-12.0 [facility] Comment on above: Performed By: #### L 501.0900, L500.4050, L100.0100 ####[facility] [address] [place], [address] UR CREAT 157.00 mg/dL Normal 28.00-217.00 [facility] Comment on above: Performed By: #### L 501.0900, L500.4050, L100.0100 ####[facility] [address] [place], [address] RBC Auto (Bld) [#/Vol]Ordere d By: Liane Archer on 11-02-2024 RBC (Bld) [#/Vol] 3.60 10*6/uL Low 4.2-5.4 [facility] Random urine creatinine elie urement (mass/volume)Ordered By: Liane Archer on 11-02-2024 Creatinine Unsp time (U) [Mass/Vol] 157.00 mg/dL 28.00-217.00 [facility] Serum creatinine measurement (mass/volume)Ordered By: Liane Archer on 11-02-2024 Creatinine [Mass/Vol] 0.49 mg/dL Low 0.70-1.20 [facility] Serum globulin measurementOr dered By: Liane Archer on 11-02-2024 Globulin (S) [Mass/Vol] 2.7 g/dL 2.2-4.2 [facility] Serum glucose measurement (m ass/volume)Ordered By: Liane Archer on 11-02-2024 Glucose [Mass/Vol] 85 mg/dL 70-99 [facility] Serum or plasma alanine vargas otransferase (ALT) measurementOrdered By: Liane Archer on 11-02-2024 ALT [Catalytic activity/Vol] 9 U/L <35 [facility] Serum or plasma albumin elie urement (mass/volume)Ordered By: Liane Archer on 11-02-2024 Albumin [Mass/Vol] 3.8 g/dL 3.5-5.0 [facility] Serum or plasma albumin/glob ulin mass ratioOrdered By: Liane Archer on 11-02-2024 Albumin/Globulin [Mass ratio] 1.4 {ratio} 0.9-2.4 [facility] Serum or plasma alkaline jose sphatase measurementOrdered By: Liane Archer on 11-02-2024 ALP [Catalytic activity/Vol] 41 U/L 35-104 [facility] Serum or plasma calcium elie urement (mass/volume)Ordered By: Liane Archer on 11-02-2024 Calcium [Mass/Vol] 9.1 mg/dL 7.6-11.0 [facility] Serum or plasma urea nitroge n measurement (mass/volume)Ordered By: Liane Archer on 11-02-2024 Urea nitrogen [Mass/Vol] 6 mg/dL 4-19 [facility] Sodium levelOrdered By: Chan emily Gianni on 11-02-2024 Sodium [Moles/Vol] 136 mmol/L 133-145 [facility] Total proteinOrdered By: Jonel velazquez Gianni on 11-02-2024 Protein [Mass/Vol] 6.5 g/dL 5.9-8.4 [facility] Urine protein measurement (m ass/volume)Ordered By: Liane Archer on 11-02-2024 Protein (U) [Mass/Vol] 29.2 mg/dL High 0.0-12.0 [facility] Urine protein/creatinine mas s ratioOrdered By: Liane Archer on 11-02-2024 Protein/Creatinine (U) [Mass ratio] 186 mg/g CRE 0-200 [facility] White blood cell (WBC) count Ordered By: Liane Archer on 11-02-2024 WBC (Bld) [#/Vol] 8.0 10*3/uL 4.4-11.0 [facility] Laboratory - Chemistry and C hemistry - challengeOrdered By: Latoya Newman on 10-05-2024 Glucose Ql (U) Negative [facility] Laboratory - UrinalysisOrder ed By: Latoya Newman on 10-05-2024 Protein Ql (U) Negative [facility] Office Visit Reporton 10-05-2024 [facility] Office Visit Report [facility] [address], [address] [place] [address] OFFICE VISIT Date of Service: 10/05/24 MR#: [id number] Acct: [id number] Name: KARLA DEGROOT Rep #: [id number] : 1995 Provider: Dr. Latoya Rogers DO Age/Sex: 28/F Location: [facility] Status: Signed Intake Vital Signs 08/05/24 10:38 09/06/24 08:29 10/05/24 09:36 10/05/24 09:56 Height 5 ft 6 in 5 ft 6 in 5 ft 6 in Weight: 220 lb 9.6 oz BP 134/76 H Intake Visit Reasons: 15wk ob Sap Bobj Developer Required: No Is patient in pain?: No Allergies No Known Allergies Allergy (Verified 10/05/24 09:36) Medications ???Medication ???Instructions ???Recorded ???Confirmed ???Type multivit-min no.71-iron fum 28 1 cap PO DAILY 11/26/22 10/05/24 History mg-folate no.1 1 mg-dha 300 mg capsule (PNV-Reed) Last Menstrual Period: 06/02/24 Zika: Zika virus screening: Negative : No PFSH PFSH Medical History Anemia in preg-unspec Chorioamnionitis, delivered, current hospitalization hemorrhage delivery delivered False labor Abnormal ultrasound Congenital abnormality ureter Surgical History Previous section [place] teeth removed Family History Grandmother Breast cancer, Onset Age: 70 Paternal Thyroid disorder Paternal- hyperthyroid Aunt Cancer, Onset Age: 53 Maternal - thyroid Social History adopted: No household members: spouse housing: house number of children: 1 current occupational status: employed current occupation: [employer] current occupational exposures/hazards: No pets and animals: [...] frequency: does not exercise duration: 45-60 minutes/day tez/islam: None seatbelt use: always do you feel safe at home: Yes additional social history: 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 Date Name GA/Weeks Outcome Route Bth Weight Gen Labor Lgth Anesthesia Del Locatn Provider FOB 06/21/23 Paige 39 live - full term 6#[address] [facility] Dr aRmya Hidalgo Delivery Date: 06/21/23 Last Updated by: [...] lb 9 (more content not included)... Normal [facility] Absolute lymphocyte countOrd ered By: Kavitha Boyer on 09-06-2024 Lymphocytes Auto (Unsp spec) [#/Vol] 2.16 10*3/uL 0.83-4.51 [facility] Absolute neutrophil countOrd ered By: Kavitha Boyer on 09-06-2024 Neutrophils (Bld) [#/Vol] 5.3 10*3/uL 2.0-7.7 [facility] Automated lymphocyte count a s percentage of total leukocytesOrdered By: Kavitha Merlin on 09-06-2024 Lymphocytes/100 WBC Auto (Unsp spec) 27.1 % 19-41 [facility] Basophil percentageOrdered B y: Kavitha Merlin on 09-06-2024 Basophils/100 WBC (Bld) 0.4 % 0-[address] [facility] CBC W/Diff, Automatedon 08-18 Absolute Lymph 2.16 X10 3/uL Normal 0.83-4.51 [facility] Comment on above: Performed By: #### L 3890.6006, L501.9985, L509.8002, L3890.6102, BTS, L100.0100, L509.4006, L3890.6301 #### [facility] [address] [place], [address] Absolute Neut 5.3 X10 3/uL Normal 2.0-7.7 [facility] Comment on above: Performed By: #### L 3890.6006, L501.9985, L509.8002, L3890.6102, BTS, L100.0100, L509.4006, L3890.6301 #### [facility] [address] [place], [address] Basophils/100 WBC (Bld) 0.4 % Normal 0-[address] [facility] Comment on above: Performed By: #### L 3890.6006, L501.9985, L509.8002, L3890.6102, BTS, L100.0100, L509.4006, L3890.6301 #### [facility] [address] [place], [address] Eosinophils/100 WBC (Bld) 1.0 % Normal 0-5 [facility] Comment on above: Performed By: #### L 3890.6006, L501.9985, L509.8002, L3890.6102, BTS, L100.0100, L509.4006, L3890.6301 #### [facility] [address] [place], [address] Erythrocyte distribution width (RBC) [Ratio] 12.9 % Normal 11.6-14.6 [facility] Comment on above: Performed By: #### L 3890.6006, L501.9985, L509.8002, L3890.6102, BTS, L100.0100, L509.4006, L3890.6301 #### [facility] [address] [place], [address] Hematocrit (Bld) [Volume fraction] 37.0 % Normal 37-47 [facility] Comment on above: Performed By: #### L 3890.6006, L501.9985, L509.8002, L3890.6102, BTS, L100.0100, L509.4006, L3890.6301 #### [facility] [address] [place], [address] Hemoglobin (Bld) [Mass/Vol] 12.1 g/dL Normal 12.0-15.0 [facility] Comment on above: Performed By: #### L 3890.6006, L501.9985, L509.8002, L3890.6102, BTS, L100.0100, L509.4006, L3890.6301 #### [facility] [address] [place], [address] IG% 0.400 Normal 0.0-0.9 [facility] Comment on above: Result Comment: IG% - Immature Granulocytes (promyelocytes, myelocytes and metamyelocytes) > 1% indicates that a LEFT SHIFT is Present. Performed By: #### L 3890.6006, L501.9985, L509.8002, L3890.6102, BTS, L100.0100, L509.4006, L3890.6301 #### [facility] [address] [place], [address] Lymphocytes/100 WBC (Bld) 27.1 % Normal 19-41 [facility] Comment on above: Performed By: #### L 3890.6006, L501.9985, L509.8002, L3890.6102, BTS, L100.0100, L509.4006, L3890.6301 #### [facility] [address] [place], [address] MCH (RBC) [Entitic mass] 28.9 pg Normal 27.0-32.0 [facility] Comment on above: Performed By: #### L 3890.6006, L501.9985, L509.8002, L3890.6102, BTS, L100.0100, L509.4006, L3890.6301 #### [facility] [address] [place], [address] MCHC (RBC) [Mass/Vol] 32.7 g/dL Normal 32-36 [facility] Comment on above: Performed By: #### L 3890.6006, L501.9985, L509.8002, L3890.6102, BTS, L100.0100, L509.4006, L3890.6301 #### [facility] [address] [place], [address] MCV (RBC) [Entitic vol] 88.3 fL Normal 81-[address] [facility] Comment on above: Performed By: #### L 3890.6006, L501.9985, L509.8002, L3890.6102, BTS, L100.0100, L509.4006, L3890.6301 #### [facility] [address] [place], [address] Monocytes/100 WBC (Bld) 4.6 % Normal 0-[address] [facility] Comment on above: Performed By: #### L 3890.6006, L501.9985, L509.8002, L3890.6102, BTS, L100.0100, L509.4006, L3890.6301 #### [facility] [address] [place], [address] Neutrophils/100 WBC (Bld) 66.5 % Normal 47-70 [facility] Comment on above: Performed By: #### L 3890.6006, L501.9985, L509.8002, L3890.6102, BTS, L100.0100, L509.4006, L3890.6301 #### [facility] [address] [place], [address] Nucleated RBC (Bld) [#/Vol] 0 10*3/uL Normal 0-5 [facility] Comment on above: Performed By: #### L 3890.6006, L501.9985, L509.8002, L3890.6102, BTS, L100.0100, L509.4006, L3890.6301 #### [facility] [address] [place], [address] Platelet mean volume (Bld) [Entitic vol] 10.2 fL Normal 6.2-12.0 [facility] Comment on above: Performed By: #### L 3890.6006, L501.9985, L509.8002, L3890.6102, BTS, L100.0100, L509.4006, L3890.6301 #### [facility] [address] [place], [address] Platelets (Bld) [#/Vol] 289 10*3/uL Normal 150-450 [facility] Comment on above: Performed By: #### L 3890.6006, L501.9985, L509.8002, L3890.6102, BTS, L100.0100, L509.4006, L3890.6301 #### [facility] [address] [place], [address] RBC (Bld) [#/Vol] 4.19 10*6/uL Low 4.2-5.4 [facility] Comment on above: Performed By: #### L 3890.6006, L501.9985, L509.8002, L3890.6102, BTS, L100.0100, L509.4006, L3890.6301 #### [facility] [address] [place], [address] RDW SD 41.4 fl Normal 35.1-43.9 [facility] Comment on above: Performed By: #### L 3890.6006, L501.9985, L509.8002, L3890.6102, BTS, L100.0100, L509.4006, L3890.6301 #### [facility] [address] [place], [address] WBC (Bld) [#/Vol] 8.0 10*3/uL Normal 4.4-11.0 [facility] Comment on above: Performed By: #### L 3890.6006, L501.9985, L509.8002, L3890.6102, BTS, L100.0100, L509.4006, L3890.6301 #### [facility] [address] [facility] [place], [address] Eosinophil percentageOrdered By: Kavitha Boyer on 09-06-2024 Eosinophils/100 WBC (Bld) 1.0 % 0-5 [facility] Erythrocyte distribution wid th ratioOrdered By: Kavitha Boyer on 09-06-2024 Erythrocyte distribution width (RBC) [Ratio] 12.9 % 11.6-14.6 [facility] Erythrocyte distribution wid th standard deviationOrdered By: Kavitha Boyer on 09-06-2024 Erythrocyte distribution width (RBC) [Ratio] 41.4 fl 35.1-43.9 [facility] HIVon 09-06-2024 HIV Non-Reactive Normal Nonreactive [facility] Comment on above: Result Comment: Non- Reactive Reactive Repeatedly reactive samples must be confirmed according to CDC recommended confirmatory algorithms. The subresults for either HIVAG or AHIV can be used as an aid in the selection of the confirmation algorithm for reactive samples. Send out specimens with Reactive results to [facility] for confirmation. Order the HIV antibody detection and differentiation: [id number] Performed By: #### L 3890.6006, L501.9985, L509.8002, L3890.6102, BTS, L100.0100, L509.4006, L3890.6301 ####[facility] [address] [place], [address] Hematocrit Auto (Bld) [Volum e fraction]Ordered By: Kavitha Boyer on 09-06-2024 Hematocrit (Bld) [Volume fraction] 37.0 % 37-47 [facility] Hemoglobin A1con 09-06-2024 HbA1c (Bld) [Mass fraction] 5.5 % Normal <=5.6 [facility] Comment on above: Result Comment: Norm al < 5.7 % Prediabetic 5.7 - 6.4 % Diabetic >or= 6.5 % Please note range changes. Performed By: #### L 3890.6006, L501.9985, L509.8002, L3890.6102, BTS, L100.0100, L509.4006, L3890.6301 #### [facility] [address] [place], [address] Hemoglobin A1c percentageOrd ered By: Kavitha Boyer on 09-06-2024 HbA1c (Bld) [Mass fraction] 5.5 % <5.7 [facility] Comment on above: Normal < 5.7 % Predi abetic 5.7 - 6.4 % Diabetic >or= 6.5 % Please note range changes. Hemoglobin measurementOrdere d By: Kavitha Boyer on 09-06-2024 Hemoglobin (Bld) [Mass/Vol] 12.1 g/dL 12.0-15.0 [facility] Hepatitis C Antibodyon 09-06 Hepatitis C Ab Non-Reactive Normal Nonreactive [facility] Comment on above: Result Comment: Reac tive: Presumptive evidence of antibodies to HCV. Follow CDC recommendations for supplemental testing. Non-Reactive: Antibodies to HCV were not detected; does not exclude the possibility of exposure to HCV Reactive Results are presumptive evidence of antibodies to HCV. Follow CDC recommendations for supplemental testing. Order confirmation testing: HCV Quant by PCR testing - HCVPCR #[id number] Non Reactive: < 0.8 Equivocal: >/= 0.8 to < 1.0 Reactive: >/= 1.0 The [facility] requires that a reactive/equivocal HCV antibody result be sent out for confirmation. HCV Quant by PCR testing. Performed By: #### L 3890.6006, L501.9985, L509.8002, L3890.6102, BTS, L100.0100, L509.4006, L3890.6301 ####[facility] [address] [place], [place], [id number] Immature granulocytes/100 WB C Auto (Bld)Ordered By: Kavitha Boyer on 09-06-2024 Immature granulocytes/100 WBC (Bld) 0.400 % 0.0-0.9 [facility] Comment on above: IG% - Immature Granu locytes (promyelocytes, myelocytes and metamyelocytes) > 1% indicates that a LEFT SHIFT is Present. L3890.6102on 09-06-2024 HEP B Surf Ag Non-Reactive Normal Nonreactive [facility] Comment on above: Result Comment: Reac tive: Presumptive evidence of HBV. Repeatedly reactive samples must be confirmed using a neutralization test ([employer] HBsAg Confirmatory Test) Non-Reactive: HBsAg not detected; does not exclude the possibility of exposure to HBV Performed By: #### L 3890.6006, L501.9985, L509.8002, L3890.6102, BTS, L100.0100, L509.4006, L3890.6301 ####[facility] [address] [place], [place], [address] L509.4006on 09-06-2024 Rubella IgG REAC Normal Nonreactive [facility] Comment on above: Result Comment: Anti body Result: Interpretation Non-Reactive: Non-Immune Reactive: Immune The following results were obtained with the [employer] Rubella IgG assay. Results from assays of other manufacturers cannot be used interchangeably. Performed By: #### L 3890.6006, L501.9985, L509.8002, L3890.6102, BTS, L100.0100, L509.4006, L3890.6301 #### [facility] [place], [address] Laboratory - Microbiology an d Antimicrobial susceptibilityOrdered By: Kavitha Boyer on 09-06-2024 HBV surface Ag Ql (S) Non-Reactive Nonreactive [facility] Comment on above: Reactive: Presumptiv e evidence of HBV. Repeatedly reactive samples must be confirmed using a neutralization test ([employer] HBsAg Confirmatory Test)Non-Reactive: HBsAg not detected; does not exclude the possibility of exposure to HBV MCV (mean corpuscular volume ) determinationOrdered By: Kavitha Boyer on 09-06-2024 MCV (RBC) [Entitic vol] 88.3 fL 81-[address] [facility] Mean corpuscular hemoglobin (MCH) determinationOrdered By: Kavitha Boyer on 09-06-2024 MCH (RBC) [Entitic mass] 28.9 pg 27.0-32.0 [facility] Mean corpuscular hemoglobin concentration (MCHC) determinationOrdered By: Kavitha Boyer on 09-06-2024 MCHC (RBC) [Mass/Vol] 32.7 g/dL 32-36 [facility] Mean platelet volume determi nationOrdered By: Kavitha Boyer on 09-06-2024 Platelet mean volume (Bld) [Entitic vol] 10.2 fL 6.2-12.0 [facility] Monocyte percentageOrdered B y: Kavitha Boyer on 09-06-2024 Monocytes/100 WBC (Bld) 4.6 % 0-[address] [facility] Neutrophil percentageOrdered By: Kavitha Boyer on 09-06-2024 Neutrophils/100 WBC (Bld) 66.5 % 47-70 [facility] No Panel InformationOrdered By: Kavitha Boyer on 09-06-2024 HIV (1&2) Antibody Non-Reactive Nonreactive [facility] Comment on above: Non-ReactiveReactive Repeatedly reactive samples must be confirmed according to CDC recommended confirmatory algorithms. The subresults for either HIVAG or AHIV can be used as an aid in the selection of the confirmation algorithm for reactive samples.Send out specimens with Reactive results to [facility] for confirmation.Order the HIV antibody detection and differentiation: #[id number] Nucleated red blood cell per centageOrdered By: Kavitha Boyer on 09-06-2024 Nucleated RBC/100 WBC (Bld) [Ratio] 0 % 0-5 [facility] Office Visit Reporton 09-06-2024 [facility] Office Visit Report [facility] [address], [address] [place] [address] OFFICE VISIT Date of Service: 09/06/24 MR#: [id number] Acct: [id number] Name: KARLA DEGROOT Rep #: [id number] : 1995 Provider: Dr. Mickie smith MD Age/Sex: 28/F Location: [facility] Status: Signed Intake Vital Signs 08/13/23 14:05 08/05/24 10:38 09/06/24 08:29 Height 5 ft 6 in 5 ft 6 in 5 ft 6 in Weight: 226 lb 222 lb 4 oz BMI 36.4 35.9 BP 123/73 H 139/84 H Intake Visit Reasons: 11wk OB Sap Bobj Developer Required: No Is patient in pain?: No Allergies No Known Allergies Allergy (Verified 09/06/24 08:37) Medications ???Medication ???Instructions ???Recorded ???Confirmed ???Type multivit-min no.71-iron fum 28 1 cap PO DAILY 11/26/22 09/06/24 History mg-folate no.1 1 mg-dha 300 mg capsule (PNV-Reed) Last Menstrual Period: 06/02/24 Zika: Zika virus screening: Negative : No PFSH PFSH Medical History Anemia in preg-unspec Chorioamnionitis, delivered, current hospitalization hemorrhage delivery delivered False labor Abnormal ultrasound Congenital abnormality ureter Surgical History Previous section [place] teeth removed Family History Grandmother Breast cancer, Onset Age: 70 Paternal Thyroid disorder Paternal- hyperthyroid Aunt Cancer, Onset Age: 53 Maternal - thyroid Social History adopted: No household members: spouse housing: house number of children: 1 current occupational status: employed current occupation: [employer] current occupational exposures/hazards: No pets and animals: [...] frequency: does not exercise duration: 45-60 minutes/day tez/islam: None seatbelt use: always do you feel safe at home: Yes additional social history: 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 Date Name GA/Weeks Outcome Route Bth Weight Infant Gen Labor Lgth Anesthesia Del Locatn Provider FOB 06/21/23 Paige 39 live - full term 6#[address] [facility] Dr Ramya Hidalgo Delivery Date: 06/21/23 Last [...] , Alcoh (more content not included)... Normal [facility] Platelet countOrdered By: Andre Boyer on 09-06-2024 Platelets (Bld) [#/Vol] 289 10*3/uL 150-450 [facility] RBC Auto (Bld) [#/Vol]Ordere d By: Kavitha Boyer on 09-06-2024 RBC (Bld) [#/Vol] 4.19 10*6/uL Low 4.2-5.4 [facility] Syphilis Antibodieson 2024 Syphilis Abs Non-Reactive Normal Nonreactive [facility] Comment on above: Performed By: #### L 3890.6006, L501.9985, L509.8002, L3890.6102, BTS, L100.0100, L509.4006, L3890.6301 #### [facility] [address] [place], [place], [id number] Type AND Screenon 09-06-2024 Ab SCREEN GEL Negative Normal [facility] Comment on above: Order Comment: PN Performed By: #### L 3890.6006, L501.9985, L509.8002, L3890.6102, BTS, L100.0100, L509.4006, L3890.6301 #### [facility] [address] [place], [place], [id number] White blood cell (WBC) count Ordered By: Kavitha Boyer on 09-06-2024 WBC (Bld) [#/Vol] 8.0 10*3/uL 4.4-11.0 [facility] Chlamydia/GC TONG aptimaon CHLAMY,NUC ACID Negative Normal Negative [facility] Comment on above: Performed By: #### L 7000.1800, M100.2200 #### [facility] [address] [place], [address] GC BY NUC ACID Negative Normal Negative [facility] Comment on above: Result Comment: Perf ormed at: =G - [facility] [address] [id number] Counseling Aide: Maggi Malave MD, Phone: [phone] Performed By: #### L 7000.1800, M100.2200 #### [facility] [address] [place], [address] Urine Cultureon 08-07-2024 [facility] Mixed Gram Positive Organisms Barry Count 25,000-50,000 MIXC Mixed contaminants. Submit a new specimen if indicated. Normal [facility] Comment on above: Performed By: #### L 7000.1800, M100.2200 #### [facility] [address] [place], [address] Chlamydia trachomatis rRNA d etection by probe and target amplification methodOrdered By: Kavitha Boyer on 08-05-2024 C. trachomatis rRNA TONG+probe Ql (Unsp spec) Negative Negative [facility] Neisseria gonorrhoeae nuclei c acid detection by amplified probe techniqueOrdered By: Kavitha Boyer on 08-05-2024 N. gonorrhoeae DNA TONG+probe Ql (Unsp spec) Negative Negative [facility] Comment on above: Performed at: =G - [facility] [address] [id number] Director: Maggi Malave MD, Phone: [phone] [facility] Office Visit Reporton 08-05-2024 [facility] Office Visit Report [facility] [address], [address] [place] [address] OFFICE VISIT Date of Service: 08/05/24 MR#: [id number] Acct: [id number] Name: KARLA DEGROOT Rep #: [id number] : 1995 Provider: MARISOL Durham ams Age/Sex: 28/F Location: [facility] Status: Signed Intake Vital Signs 08/13/23 14:05 08/05/24 10:38 Height 5 ft 6 in 5 ft 6 in Weight: 226 lb BMI 36.4 BP 123/73 H Intake Visit Reasons: *EST* NOB LMP 06/02, FLOR 03/09 Chief Complaint: NOB Sap Bobj Developer Required: No Is patient in pain?: No Allergies No Known Allergies Allergy (Verified 08/05/24 10:39) Medications ???Medication ???Instructions ???Recorded ???Confirmed ???Type multivit-min no.71-iron fum 28 1 cap PO DAILY 11/26/22 08/13/23 History mg-folate no.1 1 mg-dha 300 mg capsule (PNV-Reed) Last Menstrual Period: 06/02/24 Zika: Zika virus screening: Negative : No PFSH PFSH Medical History Anemia in preg-unspec Chorioamnionitis, delivered, current hospitalization hemorrhage delivery delivered False labor Abnormal ultrasound Congenital abnormality ureter Surgical History Previous section [place] teeth removed Family History Grandmother Breast cancer, Onset Age: 70 Paternal Thyroid disorder Paternal- hyperthyroid Aunt Cancer, Onset Age: 53 Maternal - thyroid Social History (Updated 08/05/24 @ 10:39 by Neela Tristan) adopted: No household members: spouse housing: house number of children: 1 financial difficulty paying for basics: somewhat hard service: No current occupational status: employed current occupation: [employer] current occupational exposures/hazards: No pets and animals: [...] frequency: does not exercise duration: 45-60 minutes/day tez/islam: None seatbelt use: always do you feel safe at home: Yes additional social history: 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 Date Name GA/Weeks Outcome Route Bth Weight Gen Labor Lgth Anesthesia Del Locatn Provider FOB 06/21/23 Paige 39 live - full term 6#[address] [facility] Dr Ramya Hidlago Delivery Date: 06/21/23 Last Updated by: Yudelka [...] declines NIPT (more content not included)... Normal [facility] Urine cultureOrdered By: Romain Boyer on 08-05-2024 Bacteria identified Cx Nom (U) Positive Abnormal [facility] Absolute lymphocyte countOrd ered By: Trish Beckman on 06-22-2023 Lymphocytes Auto (Unsp spec) [#/Vol] 2.30 10*3/uL 0.83-4.51 [facility] Automated lymphocyte count a s percentage of total leukocytesOrdered By: Trish Beckman on 06-22-2023 Lymphocytes/100 WBC Auto (Unsp spec) 13.2 % 19-41 [facility] Basophil percentageOrdered B y: Trish Beckman on 06-22-2023 Basophils/100 WBC (Bld) 0.3 % 0-[address] [facility] Eosinophils/100 WBC (Bld) 1.6 % 0-5 [facility] Hemoglobin (Bld) [Mass/Vol] 9.5 g/dL 12.0-15.0 [facility] Monocytes/100 WBC (Bld) 6.6 % 0-[address] [facility] Neutrophils (Bld) [#/Vol] 13.5 10*3/uL 2.0-7.7 [facility] Neutrophils/100 WBC (Bld) 77.4 % 47-70 [facility] WBC (Bld) [#/Vol] 17.4 10*3/uL 4.4-11.0 [facility] Determination of erythrocyte mean corpuscular volume (MCV)Ordered By: Trish Beckman on 06-22-2023 MCV (RBC) [Entitic vol] 88.9 fL 81-[address] [facility] Erythrocyte distribution wid th ratioOrdered By: Trish Beckman on 06-22-2023 Erythrocyte distribution width (RBC) [Ratio] 15.0 % 11.6-14.6 [facility] Erythrocyte distribution wid th standard deviationOrdered By: Trish Beckman on 06-22-2023 Erythrocyte distribution width (RBC) [Entitic vol] 48.6 fL 35.1-43.9 [facility] Hematocrit Auto (Bld) [Volum e fraction]Ordered By: Trish Beckman on 06-22-2023 Hematocrit (Bld) [Volume fraction] 30.3 % 37-47 [facility] Immature granulocytes/100 WB C Auto (Bld)Ordered By: Trish Beckman on 06-22-2023 Immature granulocytes/100 WBC (Bld) 0.900 % 0.0-0.9 [facility] Comment on above: IG% - Immature Granu locytes (promyelocytes, myelocytes and metamyelocytes) > 1% indicates that a LEFT SHIFT is Present. Laboratory - Hematology and Cell countsOrdered By: Trish Beckman on 06-22-2023 MCH (RBC) [Entitic mass] 27.9 pg 27.0-32.0 [facility] MCHC (RBC) [Mass/Vol] 31.4 g/dL 32-36 [facility] Nucleated RBC/100 WBC (Bld) [Ratio] 0 % 0-5 [facility] Platelet mean volume (Bld) [Entitic vol] 10.2 fL 6.2-12.0 [facility] Platelets (Bld) [#/Vol] 330 10*3/uL 150-450 [facility] RBC Auto (Bld) [#/Vol]Ordere d By: Trish Beckman on 06-22-2023 RBC (Bld) [#/Vol] 3.41 10*6/uL 4.2-5.4 [facility] Blood manual differential co mment interpretation (narrative result)Ordered By: Latoya Newman on 06-21-2023 Manual differential comment Yo (Bld) [Interp] SCANNED [facility] Comment on above: MONOCYTOSIS NOTED Review by pathologistOrdered By: Latoya Newman on 06-21-2023 Pathologist review Yo (Unsp spec) [Interp] Reviewed [facility] Comment on above: Previous reported re sult: Lana cooper Edited by: ERIC on 06/23/23:1016Neutrophilic leukocytosis.Normocytic anemia.Clinical correlation necessary.Beau Bear M.D. 06/23/23 AMENDED REPORT 06/23/23 1016 PATH REV previously reported as: Lana ocoper Serum Treponema species anti body detectionOrdered By: Trish Beckman on 06-21-2023 Treponema sp Ab Ql (S) Non-Reactive [facility] Laboratory - Chemistry and C hemistry - challengeon 06-16-2023 Glucose Ql (U) Negative [facility] Laboratory - Urinalysison Protein Ql (U) Negative [facility] Laboratory - Chemistry and C hemistry - challengeon 06-10-2023 Glucose Ql (U) Negative [facility] Laboratory - Urinalysison Protein Ql (U) Negative [facility] Laboratory - Chemistry and C hemistry - challengeon 06-03-2023 Glucose Ql (U) Negative [facility] Laboratory - Urinalysison Protein Ql (U) Negative [facility] Laboratory - Chemistry and C hemistry - challengeon 05-28-2023 Glucose Ql (U) Negative [facility] Laboratory - Urinalysison Protein Ql (U) Negative [facility] No Panel InformationOrdered By: Latoya Newman on 05-28-2023 Group B Streptococcus Culture Group B Beta Streptococcus is not isolated. [facility] Absolute lymphocyte countOrd ered By: Kavitha Boyer on 05-13-2023 Lymphocytes Auto (Unsp spec) [#/Vol] 1.87 10*3/uL 0.83-4.51 [facility] Automated lymphocyte count a s percentage of total leukocytesOrdered By: Kavitha Boyer on 05-13-2023 Lymphocytes/100 WBC Auto (Unsp spec) 19.3 % 19-41 [facility] Basophil percentageOrdered B y: Kavitha Boyer on 05-13-2023 Basophils/100 WBC (Bld) 0.3 % 0-[address] [facility] Eosinophils/100 WBC (Bld) 1.1 % 0-5 [facility] Hemoglobin (Bld) [Mass/Vol] 11.0 g/dL 12.0-15.0 [facility] Monocytes/100 WBC (Bld) 6.2 % 0-[address] [facility] Neutrophils (Bld) [#/Vol] 7.0 10*3/uL 2.0-7.7 [facility] Neutrophils/100 WBC (Bld) 72.4 % 47-70 [facility] WBC (Bld) [#/Vol] 9.7 10*3/uL 4.4-11.0 [facility] Determination of erythrocyte mean corpuscular volume (MCV)Ordered By: Kavitha Boyer on 05-13-2023 MCV (RBC) [Entitic vol] 88.0 fL 81-[address] [facility] Erythrocyte distribution wid th ratioOrdered By: Kavitha Boyer on 05-13-2023 Erythrocyte distribution width (RBC) [Ratio] 13.3 % 11.6-14.6 [facility] Erythrocyte distribution wid th standard deviationOrdered By: Kavitha Boyer on 05-13-2023 Erythrocyte distribution width (RBC) [Entitic vol] 42.8 fL 35.1-43.9 [facility] Hematocrit Auto (Bld) [Volum e fraction]Ordered By: Kavitha Boyer on 05-13-2023 Hematocrit (Bld) [Volume fraction] 33.8 % 37-47 [facility] Immature granulocytes/100 WB C Auto (Bld)Ordered By: Kavitha Boyer on 05-13-2023 Immature granulocytes/100 WBC (Bld) 0.700 % 0.0-0.9 [facility] Comment on above: IG% - Immature Granu locytes (promyelocytes, myelocytes and metamyelocytes) > 1% indicates that a LEFT SHIFT is Present. Laboratory - Chemistry and C hemistry - challengeon 05-13-2023 Glucose Ql (U) Negative [facility] Laboratory - Hematology and Cell countsOrdered By: Kavitha Boyer on 05-13-2023 MCH (RBC) [Entitic mass] 28.6 pg 27.0-32.0 [facility] MCHC (RBC) [Mass/Vol] 32.5 g/dL 32-36 [facility] Nucleated RBC/100 WBC (Bld) [Ratio] 0 % 0-5 [facility] Platelet mean volume (Bld) [Entitic vol] 9.9 fL 6.2-12.0 [facility] Platelets (Bld) [#/Vol] 339 10*3/uL 150-450 [facility] Laboratory - Urinalysison Protein Ql (U) Negative [facility] RBC Auto (Bld) [#/Vol]Ordere d By: Kavitha Boyer on 05-13-2023 RBC (Bld) [#/Vol] 3.84 10*6/uL 4.2-5.4 [facility] Laboratory - Chemistry and C hemistry - challengeon 04-28-2023 Glucose Ql (U) Negative [facility] Laboratory - Urinalysison Protein Ql (U) Negative [facility] Laboratory - Chemistry and C hemistry - challengeon 04-16-2023 Glucose Ql (U) Negative [facility] Laboratory - Urinalysison Protein Ql (U) Negative [facility] Absolute lymphocyte countOrd ered By: Liane Archer on 03-27-2023 Lymphocytes Auto (Unsp spec) [#/Vol] 1.76 10*3/uL 0.83-4.51 [facility] Automated lymphocyte count a s percentage of total leukocytesOrdered By: Liane Archer on 03-27-2023 Lymphocytes/100 WBC Auto (Unsp spec) 17.2 % 19-41 [facility] Basophil percentageOrdered B y: Liane Archer on 03-27-2023 Basophils/100 WBC (Bld) 0.4 % 0-[address] [facility] Eosinophils/100 WBC (Bld) 1.1 % 0-5 [facility] Hemoglobin (Bld) [Mass/Vol] 10.3 g/dL 12.0-15.0 [facility] Monocytes/100 WBC (Bld) 4.1 % 0-[address] [facility] Neutrophils (Bld) [#/Vol] 7.8 10*3/uL 2.0-7.7 [facility] Neutrophils/100 WBC (Bld) 76.3 % 47-70 [facility] WBC (Bld) [#/Vol] 10.3 10*3/uL 4.4-11.0 [facility] Determination of erythrocyte mean corpuscular volume (MCV)Ordered By: Liane Archer on 03-27-2023 MCV (RBC) [Entitic vol] 91.4 fL 81-[address] [facility] Erythrocyte distribution wid th ratioOrdered By: Liane Archer on 03-27-2023 Erythrocyte distribution width (RBC) [Ratio] 12.8 % 11.6-14.6 [facility] Erythrocyte distribution wid th standard deviationOrdered By: Liane Archer on 03-27-2023 Erythrocyte distribution width (RBC) [Entitic vol] 41.7 fL 35.1-43.9 [facility] Gestational diabetes screen 1-hour screen with 50g oral glucose loadOrdered By: Liane Archer on 03-27-2023 Glucose 1 Hr post 50 g glucose PO [Mass/Vol] 178 mg/dL 70-140 [facility] HIV 1 and HIV-2 antibody ass ay with HIV-1 p24 antigen detectionOrdered By: Liane Archer on 03-27-2023 HIV 1+2 Ab+HIV1 p24 Ag IA Ql Non-Reactive Nonreactive [facility] Hematocrit Auto (Bld) [Volum e fraction]Ordered By: Liane Archer on 03-27-2023 Hematocrit (Bld) [Volume fraction] 32.0 % 37-47 [facility] Immature granulocytes/100 WB C Auto (Bld)Ordered By: Liane Archer on 03-27-2023 Immature granulocytes/100 WBC (Bld) 0.900 % 0.0-0.9 [facility] Comment on above: IG% - Immature Granu locytes (promyelocytes, myelocytes and metamyelocytes) > 1% indicates that a LEFT SHIFT is Present. Laboratory - Chemistry and C hemistry - challengeon 03-27-2023 Glucose Ql (U) Negative [facility] Laboratory - Hematology and Cell countsOrdered By: Liane Archer on 03-27-2023 MCH (RBC) [Entitic mass] 29.4 pg 27.0-32.0 [facility] MCHC (RBC) [Mass/Vol] 32.2 g/dL 32-36 [facility] Nucleated RBC/100 WBC (Bld) [Ratio] 0 % 0-5 [facility] Platelet mean volume (Bld) [Entitic vol] 10.2 fL 6.2-12.0 [facility] Platelets (Bld) [#/Vol] 320 10*3/uL 150-450 [facility] Laboratory - Urinalysison Protein Ql (U) Negative [facility] RBC Auto (Bld) [#/Vol]Ordere d By: Liane Archer on 03-27-2023 RBC (Bld) [#/Vol] 3.50 10*6/uL 4.2-5.4 [facility] Serum Treponema species anti body detectionOrdered By: Liane Archer on 03-27-2023 Treponema sp Ab Ql (S) Non-Reactive [facility] Laboratory - Chemistry and C hemistry - challengeon 02-27-2023 Glucose Ql (U) Negative [facility] Laboratory - Urinalysison Protein Ql (U) Negative [facility] Laboratory - Chemistry and C hemistry - challengeon 01-30-2023 Glucose Ql (U) Negative [facility] Laboratory - Urinalysison Protein Ql (U) Negative [facility] Laboratory - Chemistry and C hemistry - challengeon 12-27-2022 Glucose Ql (U) Negative [facility] Laboratory - Urinalysison Protein Ql (U) Negative [facility] Absolute lymphocyte countOrd ered By: Mickie Murray on 12-12-2022 Lymphocytes Auto (Unsp spec) [#/Vol] 2.50 10*3/uL 0.83-4.51 [facility] Basophil percentageOrdered B y: Mickie Murray on 12-12-2022 Basophils/100 WBC (Bld) 0.4 % 0-[address] [facility] Eosinophils/100 WBC (Bld) 0.8 % 0-5 [facility] Neutrophils (Bld) [#/Vol] 8.3 10*3/uL 2.0-7.7 [facility] Neutrophils/100 WBC (Bld) 72.5 % 47-70 [facility] WBC (Bld) [#/Vol] 11.4 10*3/uL 4.4-11.0 [facility] Blood erythrocytes count (nu mber/volume)Ordered By: Mickie Murray on 12-12-2022 RBC (Bld) [#/Vol] 3.99 10*6/uL 4.2-5.4 [facility] Blood hemoglobin measurement (mass/volume)Ordered By: Mickie Murray on 12-12-2022 Hemoglobin (Bld) [Mass/Vol] 11.8 g/dL 12.0-15.0 [facility] Blood lymphocytes/100 leukoc ytesOrdered By: Mickie Murray on 12-12-2022 Lymphocytes/100 WBC (Bld) 22.0 % 19-41 [facility] Blood monocytes/100 leukocyt esOrdered By: Mickie Murray on 12-12-2022 Monocytes/100 WBC (Bld) 3.7 % 0-[address] [facility] Blood platelet mean volumeOr dered By: Mickie Murray on 12-12-2022 Platelet mean volume (Bld) [Entitic vol] 9.9 fL 6.2-12.0 [facility] Determination of erythrocyte mean corpuscular volume (MCV)Ordered By: Mickie Murray on 12-12-2022 MCV (RBC) [Entitic vol] 90.5 fL 81-[address] [facility] HIV 1 and HIV-2 antibody ass ay with HIV-1 p24 antigen detectionOrdered By: Mickie Murray on 12-12-2022 HIV 1+2 Ab+HIV1 p24 Ag IA Ql Non-Reactive Nonreactive [facility] Hematocrit Auto (Bld) [Volum e fraction]Ordered By: Mickie Murray on 12-12-2022 Hematocrit (Bld) [Volume fraction] 36.1 % 37-47 [facility] Laboratory - Hematology and Cell countsOrdered By: Mickie Murray on 12-12-2022 Erythrocyte distribution width (RBC) [Entitic vol] 40.6 fL 35.1-43.9 [facility] Erythrocyte distribution width (RBC) [Ratio] 12.4 % 11.6-14.6 [facility] Immature granulocytes/100 WBC (Bld) 0.600 % 0.0-0.9 [facility] Comment on above: IG% - Immature Granu locytes (promyelocytes, myelocytes and metamyelocytes) > 1% indicates that a LEFT SHIFT is Present. MCH (RBC) [Entitic mass] 29.6 pg 27.0-32.0 [facility] Nucleated RBC/100 WBC (Bld) [Ratio] 0 % 0-5 [facility] MCHC Auto (RBC) [Mass/Vol]Or dered By: Mickie Murray on 12-12-2022 MCHC (RBC) [Mass/Vol] 32.7 g/dL 32-36 [facility] No Panel InformationOrdered By: Mickie Murray on 12-12-2022 Hepatitis B Surface Antigen Non-Reactive Nonreactive [facility] Hepatitis C Antibody Non-Reactive Nonreactive [facility] Comment on above: Non Reactive: < 0.8 Equivocal: >/= 0.8 to < 1.0 Reactive: >/= 1.0The CDC recommends that a reactive/equivocal HCV antibody result be followed up by the HCV Nucleic Acid Amplificationtest (643312) Rubella IgG Antibody Reactive Nonreactive [facility] Comment on above: Antibody Results Int erpretation of Immune Status Non Reactive Presumed Non-Immune Equivocal Equivocal Reactive Presumed Immune Platelets bldOrdered By: Erik Murray on 12-12-2022 Platelets (Bld) [#/Vol] 313 10*3/uL 150-450 [facility] Serum Treponema species anti body detectionOrdered By: Mickie Murray on 12-12-2022 Treponema sp Ab Ql (S) Non-Reactive [facility] Whole blood hemoglobin A1c/t otal hemoglobin ratio (mass fraction)Ordered By: Mickie Murray on 12-12-2022 HbA1c (Bld) [Mass fraction] 5.3 % 3.8-5.6 [facility] Comment on above: Normal < 5.7 % Predi abetic 5.7 - 6.4 % Diabetic >or= 6.5 % Please note range changes. C. trachomatis+N. gonorrhoea e DNA TONG+probe Ql (Unsp spec)on 07-09-2021 C. trachomatis DNA TONG+probe Ql (Unsp spec) Negative Normal Negative for Chlamydia trachomatis by amplificaton [facility] Comment on above: Order Comment: Speci men Type: SWABOrdering Facility: [facility] Address: [address] [place] [address] Performed By: #### 3 6902-5 ####[facility] LABCLIA [id number] [address] [place] N. gonorrhoeae DNA TONG+probe Ql (Unsp spec) Negative Normal Negative for Neisseria gonorrhoeae by amplification [facility] Comment on above: Order Comment: Speci men Type: SWABOrdering Facility: [facility] Address: [address] [place] [address] Performed By: #### 3 6902-5 ####[facility] LABCLIA [id number] [address] [place] CNOVon 07-09-2021 CNOV Office Visit (OBGYWM ) KARLA TUTTLE ([id number]) 1995 F Date Time Provider Department 07/09/21 [...] OB History No obstetric history on file. 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 Normal [facility] PAP FLUID CERVICAL SCREENING on 07-09-2021 CASE REPORT Normal [facility] Comment on above: Order Comment: Speci men Type: FLUID SAMPLEOrdering Facility: [facility] Address: [address] [place] [address] Result Comment: Gyne cologic Cytology Report Case: [id number] Authorizing Provider: Kaitlin Montilla APRN.CNM Collected: 07/09/2021 10:22 AM Ordering Location: OB/Gynecology Received: 07/09/2021 01:57 PM First Screen: PAULETTE Block ASCP Specimen: PAP TRAFFIC SUPERVISOR SCREENING, CERVICAL SCREENING FLUID Performed By: #### L [id number] ####[facility] LABCLIA [id number] [place] [address] [place] CLINICAL HISTORY ROUTINE EXAM Normal [facility] Comment on above: Order Comment: Speci men Type: FLUID SAMPLEOrdering Facility: [facility] Address: [address] [place] [address] Performed By: #### L [id number] ####[facility] LABCLIA [id number] [place] [address] [place] CYTOLOGY INTERPRETATION PAP Normal [facility] Comment on above: Order Comment: Speci men Type: FLUID SAMPLEOrdering Facility: [facility] Address: [address] [place] [address] Result Comment: Nega tive for Intraepithelial lesion or malignancy. Performed By: #### L [id number] ####[facility] LABCLIA [id number] [address] [place] FINAL DIAGNOSIS Normal [facility] Comment on above: Order Comment: Speci men Type: FLUID SAMPLEOrdering Facility: [facility] Address: [address] [place], [place] [id number] Result Comment: A - CERVICAL SCREENING FLUID Satisfactory for interpretation Negative for Intraepithelial lesion or malignancy. Performed By: #### L [id number] ####[facility] LABCLIA [id number] [address] [place] FINAL PERFORMING LAB Normal [facility] Comment on above: Order Comment: Speci men Type: FLUID SAMPLEOrdering Facility: [facility] Address: [address] [place] [address] Result Comment: Tech nical component, roller helper screening performed at [facility], [address] [place] [address] [place] [address] CLIA# [id number] Diagnostic interpretation performed at [facility], [address] [place] [address] [place] [address] CLIA# [id number] City Sanitarian: Shane De Paz M.D. Performed By: #### L [id number] ####[facility] LABCLIA [id number] [address] [place] HPV REQUESTED? Yes, Reflex HPV for ASCUS Normal [facility] Comment on above: Order Comment: Speci men Type: FLUID SAMPLEOrdering Facility: [facility] Address: [address] [place] [address] Performed By: #### L [id number] ####[facility] LABCLIA [id number] [address] [place] LMP 06/09/[address] [facility] Comment on above: Order Comment: Speci men Type: FLUID SAMPLEOrdering Facility: [facility] Address: [address] [place] [address] Performed By: #### L [id number] ####[facility] LABCLIA [id number] [place] [address] [place] PAP DISCLAIMER COMMENT The Pap Smear is a screening test for cervical cancer. False negative results occur with all screening tests, emphasizing the need for rescreening at recommended intervals, and clinical correlation. Normal [facility] Comment on above: Order Comment: Speci men Type: FLUID SAMPLEOrdering Facility: [facility] Address: [address] [place] [address] Performed By: #### L [id number] ####[facility] LABCLIA [id number] [address] [place] PAP TRAFFIC SUPERVISOR COMMENT This specimen has been analyzed by the ThinPrep Imaging System, an automated imaging and review system, which assists the laboratory in evaluating cells on ThinPrep Pap tests. Following automated imaging, selected dhillon from every slide are reviewed by a roller helper. Normal [facility] Comment on above: Order Comment: Speci men Type: FLUID SAMPLEOrdering Facility: [facility] Address: [address] [place] [address] Performed By: #### L [id number] ####[facility] LABCLIA [id number] [address] MRI BRAIN WO IVCONon 05-01-2 022 MRI BRAIN WO IVCON * * *Final Report* * * DATE OF EXAM: May 01 2021 2:44PM [facility] 0294 - MRI BRAIN WO IVCON [...] chronic small vessel ischemia among other etiologies. Director Of Digital Marketing: PSCB Transcribe Date/Time: May 01 2021 3:09P Dictated by : NATALIE REYES, DO This examination was interpreted and the report reviewed and electronically signed by: CARSON CORDOVA MD on May 01 2021 3:59PM EST [id number] Normal [facility] CNOVon 04-13-2021 CNOV Office Visit (NEURMM ) KARLA TUTTLE ([id number]) 1995 F Date Time Provider Department 04/13/21 10:00 AM YARELI LEMUS NEUR During your visit today, we recorded the following information about you: Pulse Blood pressure Weight 68/minute 133/69 105.1 kg Yareli Lemus MD 04/13/2021 10:33 AM Signed [facility] - new patient evaluation Date: April 13, 2021 Patient Name: Karla Tuttle Referring physician: Shelley Overton [address] [address] Primary physician: [place] [address] [place] [address] Reason for Evaluation: lightheadedness HPI: The pt [...] [facility] for further evaluation. Was in [facility] 09/20/2020 for intermittent dizziness. Told she may have POTS in the past but she was tired of seeing doctors and saw didn't see anyone for a few years. Previously saw Cardiology 02/19/2021 for lightheadedness and palpitations. Possible diagnosis of POTS in past based on tilt table evaluation but those records are unavailable. cardiac monitor neg for arrhthymias, echo without structural [...] SYSTEMS: GEN (more content not included)... Normal [facility] CNOVon 04-02-2021 CNOV Office Visit (CAWSTR ) KARLA TUTTLE ([id number]) 1995 F Date Time Provider Department 04/02/21 3:00 PM SHELLEY OVERTON During your visit today, we recorded the following information about you: Pulse Blood pressure Weight Last Period 84/minute 130/70 104.3 kg 03/19/21 Shelley Overton APRN.SECURITY INTERN 04/08/2021 8:12 PM Signed Chief Complaint Patient [...] injection (DEFINITY) INTRAVENOUS DIRECTED PRN Rachel Moon APRN.SECURITY INTERN - sodium chloride 0.9 % (flush) 10 mL (BD POSIFLUSH) 10 mL INTRAVENOUS DIRECTED PRN Rachel Moon APRN.SECURITY INTERN Review of Systems Constitutional: Negative for chills, [...] is s (more content not included)... Normal [facility] CNOVon 02-27-2021 CNOV Office Visit (VSLWST ) KARLA TUTTLE ([id number]) 1995 F Date Time Provider Department 02/27/21 3:30 PM [facility] WSTR VSLWST During your visit today, we recorded the following information about you: Shelley Overton APRN.SECURITY INTERN 02/27/2021 7:55 PM Signed Please call patient and let her know carotid US study was normal. Thank you! Referring Provider: SHELLEY OVERTON [[id number]] Allergies As of Date: 02/27/2021 (No Known Allergies) Date Reviewed: 02/21/2021 Reviewed by: Shelley Overton APRN.SECURITY INTERN - Fully Assessed Visit Diagnosis:Lightheaded ness [R42] Order(s):US CAROTID ARTERIES [facility] [[id number]] Order #: [id number]. #:[id number] Prescriptions as of 02/28/2021 - propranolol (INDERAL) [...] Status:Closed by SHELLEY OVERTON on 02/28/[address] [facility] CNPNon 02-23-2021 CNPN Telephone (CAWSTR) KARLA TUTTLE ([id number]) 1995 F Date Time Provider Department 02/23/21 SHELLEY OVERTON During your visit today, we recorded the following information about you: Thiago Lanlgey Pss 02/23/2021 9:36 AM Signed Shelley, could you change the order for the Carotid to Vascular instead of Radiology? I scheduled the pt for 02/27 at 3:30 pm in the Vascular Lab in [place]. Thank you, Thiago Langley Patient Outreach Allergies As of Date: 02/23/2021 (No Known Allergies) Date Reviewed: 02/21/2021 Reviewed by: Shelley Overton, BIOINFORMATICS SCIENTIST.SECURITY INTERN - Fully Assessed Reason for Visit: Orders [681] Primary Visit Diagnosis:Lightheaded ness [R42] Order(s): CAROTID ARTERIES [facility] [[id number]] Order #: [id number] FUTURE Prescriptions as of 02/23/2021 - propranolol [...] Encounter Status:Closed by SHELLEY OVERTON on 02/23/21 [facility] CNOVon 02-19-2021 CNOV Office Visit (CAWSTR ) KARLA TUTTLE ([id number]) 1995 F Date Time Provider Department 02/19/21 2:00 PM SHELLEY OVERTON During your visit today, we recorded the following information about you: Pulse Blood pressure Weight Height 96/minute 140/74 104.3 kg 1.676 m Shelley Overton APRN.MAGALIS 02/19/2021 2:32 PM Signed Heart Disease in Women Is heart disease a problem for women? Heart disease is the leading cause of of [place] women. More women from heart disease than [...] disease. You can get more information from: -[place] [employer] Uweswplixgc9-047-WHE- [place]-1 ( )www.h eart.org Developed by [employer]. Published by [employer]. Copyright ?2013 [employer] and/or one of its subsidiaries. All rights reserved. Shelley Overton APRN.SECURITY INTERN 02/21/2021 10:15 AM Signed [facility] SECTION [facility] REGIONAL CARDIOLOGY Cardiology ([facility]) [address] [facility] [id number] OUTPATIENT VISIT February 19, 2021 2:00 PM [...] due to (more content not included)... Normal [facility] CBC and Differentialon 11-13 Abs Baso 0.08 k/uL Normal <0.[address] [facility] Comment on above: Performed By: #### C MP, TSH, IRON, MG1, AHCV1B, HIV12C, CBCDIF, FT4, FERR ####[place] [address] [address] [place] [id number] Abs [place] 0.62 k/uL Normal <0.[address] [facility] Comment on above: Performed By: #### C MP, TSH, IRON, MG1, AHCV1B, HIV12C, CBCDIF, FT4, FERR ####[place] [address] [address] [phone] Abs Neut 4.38 k/uL Normal 1.45-7.[address] [facility] Comment on above: Performed By: #### C MP, TSH, IRON, MG1, AHCV1B, HIV12C, CBCDIF, FT4, FERR ####[place] [address] [address] [phone] Absolute nRBC <0.01 Normal <0.[address] [facility] Comment on above: Performed By: #### C MP, TSH, IRON, MG1, AHCV1B, HIV12C, CBCDIF, FT4, FERR ####[place] [address] [address] [place] [phone] Basophils/100 WBC (Bld) 1.0 % Normal [facility] Comment on above: Performed By: #### C MP, TSH, IRON, MG1, AHCV1B, HIV12C, CBCDIF, FT4, FERR ####[place] [address] [address] [place] [phone] DTYPE Auto Diff Normal [facility] Comment on above: Performed By: #### C MP, TSH, IRON, MG1, AHCV1B, HIV12C, CBCDIF, FT4, FERR ####[place] [address] [address] [place] [phone] Eosinophils (Bld) [#/Vol] 0.32 10*3/uL Normal <0.[address] [facility] Comment on above: Performed By: #### C MP, TSH, IRON, MG1, AHCV1B, HIV12C, CBCDIF, FT4, FERR ####[address] [place] [phone] Eosinophils/100 WBC (Bld) 3.8 % Normal [facility] Comment on above: Performed By: #### C MP, TSH, IRON, MG1, AHCV1B, HIV12C, CBCDIF, FT4, FERR ####[place] [phone] Erythrocyte distribution width (RBC) [Ratio] 12.3 % Normal 11.5-15.[address] [facility] Comment on above: Performed By: #### C MP, TSH, IRON, MG1, AHCV1B, HIV12C, CBCDIF, FT4, FERR ####[place] [phone] Hematocrit (Bld) [Volume fraction] 41.1 % Normal 36.0-46.[address] [facility] Comment on above: Performed By: #### C MP, TSH, IRON, MG1, AHCV1B, HIV12C, CBCDIF, FT4, FERR ####[place] [address] [address] [place] [phone] Hemoglobin (Bld) [Mass/Vol] 12.9 g/dL Normal 11.5-15.[address] [facility] Comment on above: Performed By: #### C MP, TSH, IRON, MG1, AHCV1B, HIV12C, CBCDIF, FT4, FERR ####[address] [place] [phone] Lymphocytes (Bld) [#/Vol] 2.93 10*3/uL Normal 1.00-4.[address] [facility] Comment on above: Performed By: #### C MP, TSH, IRON, MG1, AHCV1B, HIV12C, CBCDIF, FT4, FERR ####[place] [address] [address] [phone] Lymphocytes/100 WBC (Bld) 35.1 % Normal [facility] Comment on above: Performed By: #### C MP, TSH, IRON, MG1, AHCV1B, HIV12C, CBCDIF, FT4, FERR ####[place] [address] [address] [place] [phone] MCH 29.2 pG Normal 26.0-34.[address] [facility] Comment on above: Performed By: #### C MP, TSH, IRON, MG1, AHCV1B, HIV12C, CBCDIF, FT4, FERR ####[place] [phone] MCHC (RBC) [Mass/Vol] 31.4 g/dL Normal 30.5-36.0 [facility] Comment on above: Performed By: #### C MP, TSH, IRON, MG1, AHCV1B, HIV12C, CBCDIF, FT4, FERR ####[place] [phone] MCV (RBC) [Entitic vol] 93.0 fL Normal 80.0-100.[address] [facility] Comment on above: Performed By: #### C MP, TSH, IRON, MG1, AHCV1B, HIV12C, CBCDIF, FT4, FERR ####[place] [address] [address] [phone] Monocytes/100 WBC (Bld) 7.4 % Normal [facility] Comment on above: Performed By: #### C MP, TSH, IRON, MG1, AHCV1B, HIV12C, CBCDIF, FT4, FERR ####[place] [address] [address] [place] [phone] Neutrophils/100 WBC (Bld) 52.7 % Normal [facility] Comment on above: Performed By: #### C MP, TSH, IRON, MG1, AHCV1B, HIV12C, CBCDIF, FT4, FERR ####[place] [address] AveCYork, [place] [phone] NRBCs 0.0 /100 WBC Normal [address] [facility] Comment on above: Performed By: #### C MP, TSH, IRON, MG1, AHCV1B, HIV12C, CBCDIF, FT4, FERR ####[place] [address] [address] [phone] Platelet mean volume (Bld) [Entitic vol] 10.6 fL Normal 9.0-12.[address] [facility] Comment on above: Performed By: #### C MP, TSH, IRON, MG1, AHCV1B, HIV12C, CBCDIF, FT4, FERR ####[place] [address] [address] [place] [phone] Platelets (Bld) [#/Vol] 349 10*3/uL Normal 150-[address] [facility] Comment on above: Performed By: #### C MP, TSH, IRON, MG1, AHCV1B, HIV12C, CBCDIF, FT4, FERR ####[place] [address] [address]CYork, [place] [phone] RBC (Bld) [#/Vol] 4.42 10*6/uL Normal 3.90-5.20 [facility] Comment on above: Performed By: #### C MP, TSH, IRON, MG1, AHCV1B, HIV12C, CBCDIF, FT4, FERR ####[facility], [place] [phone] WBC (Bld) [#/Vol] 8.35 10*3/uL Normal 3.70-11.00 [facility] Comment on above: Performed By: #### C MP, TSH, IRON, MG1, AHCV1B, HIV12C, CBCDIF, FT4, FERR ####[facility] [place], [place] [phone] CNOVon 11-13-2020 CNOV Office Visit (FAMPWS ) KARLA TUTTLE ([id number]) 1995 F Date Time Provider Department 11/13/20 2:00 PM RACHEL MOON During your visit today, we recorded the following information about you: Pulse Respiration Blood pressure Weight 80/minute 18/minute 128/90 103 kg Last Period 10/30/20 Rachel Moon APRN.SECURITY INTERN 11/13/2020 7:50 PM Signed This is a [...] happen when standing up. Tilt table through [facility]. Dr. Natalio perry/ [facility]. Neurology. Has never had an echo. Has [...] INJECTION SYRIN (more content not included)... Normal [facility] Comp Metabolic Panelon 11-13 Albumin [Mass/Vol] 4.9 g/dL Normal 3.9-4.9 [facility] Comment on above: Performed By: #### C MP, TSH, IRON, MG1, AHCV1B, HIV12C, CBCDIF, FT4, FERR ####[facility] [place], [place] [phone] ALP [Catalytic activity/Vol] 47 U/L Normal 34-[address] [facility] Comment on above: Performed By: #### C MP, TSH, IRON, MG1, AHCV1B, HIV12C, CBCDIF, FT4, FERR ####[facility] [place], [place] [phone] ALT [Catalytic activity/Vol] 50 U/L High 7-[address] [facility] Comment on above: Performed By: #### C MP, TSH, IRON, MG1, AHCV1B, HIV12C, CBCDIF, FT4, FERR ####[place] [address] [place], [place] [phone] Anion gap [Moles/Vol] 13 mmol/L Normal 9-18 [facility] Comment on above: Performed By: #### C MP, TSH, IRON, MG1, AHCV1B, HIV12C, CBCDIF, FT4, FERR ####[place] [phone] AST [Catalytic activity/Vol] 29 U/L Normal 13-[address] [facility] Comment on above: Performed By: #### C MP, TSH, IRON, MG1, AHCV1B, HIV12C, CBCDIF, FT4, FERR ####[address] [phone] Bilirubin [Mass/Vol] 0.3 mg/dL Normal 0.2-1.3 [facility] Comment on above: Performed By: #### C MP, TSH, IRON, MG1, AHCV1B, HIV12C, CBCDIF, FT4, FERR ####[place] [phone] Calcium [Mass/Vol] 9.8 mg/dL Normal 8.5-10.2 [facility] Comment on above: Performed By: #### C MP, TSH, IRON, MG1, AHCV1B, HIV12C, CBCDIF, FT4, FERR ####[address] [phone] Chloride [Moles/Vol] 104 mmol/L Normal 97-105 [facility] Comment on above: Performed By: #### C MP, TSH, IRON, MG1, AHCV1B, HIV12C, CBCDIF, FT4, FERR ####[place] [address] [address] [place], [place] [phone] CO2 [Moles/Vol] 23 mmol/L Normal 22-[address] [facility] Comment on above: Performed By: #### C MP, TSH, IRON, MG1, AHCV1B, HIV12C, CBCDIF, FT4, FERR ####[facility] [place] [phone] Creatinine [Mass/Vol] 0.76 mg/dL Normal 0.58-0.96 [facility] Comment on above: Performed By: #### C MP, TSH, IRON, MG1, AHCV1B, HIV12C, CBCDIF, FT4, FERR ####[place] [address] [address] [place] [phone] eGFR- Amer. >60 Normal [facility] Comment on above: Performed By: #### C MP, TSH, IRON, MG1, AHCV1B, HIV12C, CBCDIF, FT4, FERR ####[place] [phone] eGFR-All Other Races >60 Normal [facility] Comment on above: Result Comment: eGFR [...] IRON, MG1, AHCV1B, HIV12C, CBCDIF, FT4, FERR ####[place] [phone] Glucose [Mass/Vol] 82 mg/dL Normal 74-99 [facility] Comment on above: Result Comment: The [place] Diabetes Association (ADA) provides guidance for cutoff [...] Standards of Medical Care in Diabetes 2016, [place] [employer] Association. Diabetes Care. 2016.39(Suppl 1). Performed By: #### C MP, TSH, IRON, MG1, AHCV1B, HIV12C, CBCDIF, FT4, FERR ####[address] [phone] Potassium [Moles/Vol] 3.9 mmol/L Normal 3.7-5.1 [facility] Comment on above: Performed By: #### C MP, TSH, IRON, MG1, AHCV1B, HIV12C, CBCDIF, FT4, FERR ####[address] [phone] Protein [Mass/Vol] 7.3 g/dL Normal 6.3-8.0 [facility] Comment on above: Performed By: #### C MP, TSH, IRON, MG1, AHCV1B, HIV12C, CBCDIF, FT4, FERR ####[address] [phone] Sodium [Moles/Vol] 140 mmol/L Normal 136-144 [facility] Comment on above: Performed By: #### C MP, TSH, IRON, MG1, AHCV1B, HIV12C, CBCDIF, FT4, FERR ####[address] [phone] Urea nitrogen [Mass/Vol] 11 mg/dL Normal 7-[address] [facility] Comment on above: Performed By: #### C MP, TSH, IRON, MG1, AHCV1B, HIV12C, CBCDIF, FT4, FERR ####[place] [address] [place], [place] [phone] Ferritinon 11-13-2020 Ferritin [Mass/Vol] 66.0 ng/mL Normal 14.7-205.1 [facility] Comment on above: Performed By: #### C MP, TSH, IRON, MG1, AHCV1B, HIV12C, CBCDIF, FT4, FERR ####[address] [phone] Free T4on 11-13-2020 Free T4 [Mass/Vol] 1.1 ng/dL Normal 0.9-1.7 [facility] Comment on above: Performed By: #### C MP, TSH, IRON, MG1, AHCV1B, HIV12C, CBCDIF, FT4, FERR ####[address] [phone] [id number] Ag +HIV12 Abon 11-13 HIV 12 Ag/Ab Non-Reactive Normal Non Reactive [facility] Comment on above: Performed By: #### C MP, TSH, IRON, MG1, AHCV1B, HIV12C, CBCDIF, FT4, FERR ####[address] [phone] HIV-1/2 Antibody Normal [facility] Comment on above: Result Comment: Test Not Indicated Negative No evidence of HIV-1 or HIV-2 infection. Should recent infection be suspected, repeat testing may be considered 2-3 weeks after this draw. HIV Information: [place] Rev. Code 3701.243(E): This information has been [...] IRON, MG1, AHCV1B, HIV12C, CBCDIF, FT4, FERR ####[place] [address] [address], [place] [phone] Hep C Ab IA w/Confon 021 Hepatitis C Ab IA Negative Normal Negative [facility] Comment on above: Performed By: #### C MP, TSH, IRON, MG1, AHCV1B, HIV12C, CBCDIF, FT4, FERR ####[place] [address] [address] Av[place], [place] [phone] Iron and TIBCon 11-13-2020 Iron [Mass/Vol] 62 ug/dL Normal 41-[address] [facility] Comment on above: Performed By: #### C MP, TSH, IRON, MG1, AHCV1B, HIV12C, CBCDIF, FT4, FERR ####[address] [phone] TIBC 368 ug/dL Normal 232-[address] [facility] Comment on above: Performed By: #### C MP, TSH, IRON, MG1, AHCV1B, HIV12C, CBCDIF, FT4, FERR ####[address] [phone] Transferrin Saturatn 17 % Normal 15-57 [facility] Comment on above: Performed By: #### C MP, TSH, IRON, MG1, AHCV1B, HIV12C, CBCDIF, FT4, FERR ####[address] [place], [place] [phone] Magnesiumon 11-13-2020 Magnesium [Mass/Vol] 2.2 mg/dL Normal 1.7-2.3 [facility] Comment on above: Performed By: #### C MP, TSH, IRON, MG1, AHCV1B, HIV12C, CBCDIF, FT4, FERR ####[place] [address] [address], [place] [phone] TSHon 11-13-2020 TSH Qn 1.420 m[IU]/L Normal 0.270-4.[address] [facility] Comment on above: Result Comment: [...] E, et al. 2017 Guidelines of the [place] Thyroid Association for the Diagnosis and Management of Thyroid Disease during and the . Thyroid, 2017:27:3:315-389. Performed By: #### C MP, TSH, IRON, MG1, AHCV1B, HIV12C, CBCDIF, FT4, FERR ####[facility] [address] [place], [place] [phone] Beta HCG (Qual), Serum - CHR Ion 03-25-2017 Beta HCG (Qual), Serum Negative Normal [facility] Comment on above: Performed By: #### Missael BCDFJ ####[facility] [place] [phone] CBC WITH DIFF [place] 2017 Abs Baso 0.05 K/uL Normal 0.01-0.08 [facility] Comment on above: Performed By: #### C BCDFJ ####[facility] [place], [place] [address] Abs Eos 0.10 K/uL Normal 0.04-0.36 [facility] Comment on above: Performed By: #### C BCDFJ ####[facility] [place] [address] Abs [place] 0.60 K/uL Normal 0.24-0.86 [facility] Comment on above: Performed By: #### C TIENDFJ ####[place] RODRIGUEZ, [facility] [place], [place] [address] Basophils/100 WBC Auto (Bld) 0.5 % Normal [facility] Comment on above: Performed By: #### C BCDFJ ####[place] RODRIGUEZ, [facility] [place], [place] [address] DIFFERENTIAL TYPE Electronic Differential Normal [facility] Comment on above: Performed By: #### C BCDFJ ####[place] RODRIGUEZ, [facility] [place], [place] [address] Eosinophils/100 leukocytes 0.9 % Normal [facility] Comment on above: Performed By: #### C BCDFJ ####[facility] [place] [address] Erythrocytes (RBC) 4.40 10*6/uL Normal 3.93-5.22 [facility] Comment on above: Performed By: #### C BCDFJ ####[place] RODRIGUEZ, [facility] [place], [place] [address] Erythrocytes (RBC) 12.7 % Normal 11.7-14.4 [facility] Comment on above: Performed By: #### C BCDFJ ####[place] RODRIGUEZ, [facility] [place], [place] [address] Hematocrit (HCT) 38.3 % Normal 34.1-44.9 [facility] Comment on above: Performed By: #### C BCDFJ ####[place] RODRIGUEZ, [facility] [place], [place] [address] Hemoglobin mass conc (Bld) 12.5 g/dL Normal 11.2-15.7 [facility] Comment on above: Performed By: #### C BCDFJ ####La[place] RODRIGUEZ, [facility] [place], [place] [address] Hemoglobin mass conc (Bld) 32.6 g/dL Normal 32.2-35.5 [facility] Comment on above: Performed By: #### C CAITYJ ####[place] RODRIGUEZ, [facility] [place] [address] Hemoglobin mass conc (Bld) 28.4 pg Normal 25.6-32.2 [facility] Comment on above: Performed By: #### Missael CAROLINAJ ####[place] RODRIGUEZ, [facility] [place] [address] IMMATURE GRANS % 0.4 % Normal [facility] Comment on above: Performed By: #### C CAITYJ ####[facility] [place] [address] IMMATURE GRANS ABSOLUTE 0.04 K/uL High 0.00-0.03 [facility] Comment on above: Performed By: #### Missael CAROLINAJ ####[facility] [place] [address] Lymphocytes 3.35 10*3/uL Normal 1.18-3.74 [facility] Comment on above: Performed By: #### C CAITYJ ####[facility] [place] [address] Lymphocytes/100 leukocytes 31.5 % Normal [facility] Comment on above: Performed By: #### C CAITYJ ####[facility] [place] [address] MCV 87.0 fL Normal 79.4-94.8 [facility] Comment on above: Performed By: #### Missael CAROLINAJ ####[facility] [place] [address] Monocytes/100 leukocytes 5.6 % Normal [facility] Comment on above: Performed By: #### C CAITYJ ####[facility] [place] [address] NEUTROPHIL SEGMENTED 61.1 % Normal [facility] Comment on above: Performed By: #### Missael CAROLINAJ ####[place] RODRIGUEZ, [facility] [place] [address] Nucleated erythrocytes 0.0 /100 WBC Normal 0.0-0.2 [facility] Comment on above: Performed By: #### Missael CAROLINAJ ####[place] RODRIGUEZ, [facility] [place] [address] Platelet mean volume (PMV) 10.2 fL Normal 9.4-12.3 [facility] Comment on above: Performed By: #### Missael RESENDIZ ####[place] RODRIGUEZ, [facility] [place] [address] Platelets 356 10*3/uL Normal 182-369 [facility] Comment on above: Performed By: #### Missael RESENDIZ ####[place] RODRIGUEZ, [facility] [place] [address] SEGS + Bands,Absolute 6.48 K/uL High 1.56-6.13 [facility] Comment on above: Performed By: #### Missael RESENDIZ ####Lauro RODRIGUEZ, [facility] [place] [address] WBC (Leukocytes) 10.62 10*3/uL High 3.98-10.04 [facility] Comment on above: Performed By: #### Missael RESENDIZ ####[place] RODRIGUEZ, [facility] [place] [address] CHEM 7 ED - CHRIon 8 Anion gap 14 mmol/L Normal 7-17 [facility] Comment on above: Performed By: #### Missael RESENDIZ ####[place] RODRIGUEZ, [facility] [place] [address] BUN/Creatinine Ratio 18 mg/mg Normal [facility] Comment on above: Performed By: #### Missael RESENDIZ ####[place] RODRIGUEZ, [facility] [place] [address] Chloride 106 mmol/L Normal 98-108 [facility] Comment on above: Performed By: #### C BCROSALVAJ ####[place] RODRIGUEZ, [facility] [place] [address] CO2 23 mmol/L Normal 22-30 [facility] Comment on above: Performed By: #### C TIENDFJ ####[place] RODRIGUEZ, [facility] [place] [address] Creatinine 0.74 mg/dL Normal 0.50-1.20 [facility] Comment on above: Performed By: #### C CAITYJ ####[place] RODRIGUEZ, [facility] [place] [address] eGFR (non-black) mL/min/{1.73_m2} Normal >60 [facility] Comment on above: Performed By: #### C BCROSALVAJ ####[place] RODRIGUEZ, [facility] [place], [place] [phone] Glucose mass conc 88 mg/dL Normal 70-99 [facility] Comment on above: Performed By: #### C CAITYJ ####[place] RODRIGUEZ, [facility] [place] [address] Osmolality 289 mOsm/kg Normal 278-305 [facility] Comment on above: Performed By: #### C BCROSALVAJ ####Lauro RODRIGUEZ, [facility] [place] [address] Potassium molar conc 3.5 mmol/L Normal 3.5-5.0 [facility] Comment on above: Performed By: #### C BCDFJ ####[facility]uro RODRIGUEZ, [facility] [place], [place] [phone] Sodium 139 mmol/L Normal 133-143 [facility] Comment on above: Performed By: #### C BCDFJ ####Lauro RODRIGUEZ, [facility] [place], [place] [address] Urea nitrogen 13 mg/dL Normal 7-22 [facility] Comment on above: Performed By: #### C CAITYJ ####Lauro RODRIGUEZ, [facility] [place] [address] Calcium - CHRIon 03-25-2017 Calcium 9.5 mg/dL Normal 8.6-10.5 [facility] Comment on above: Performed By: #### C CAITYJ ####Lauro RODRIGUEZ, [facility] [place] [address] Inorg Phosphate - CHRIon Inorg Phosphate 2.9 mg/dL Normal 2.2-4.6 [facility] Comment on above: Performed By: #### C CAITYJ ####Lauro RODRIGUEZ, [facility] [place] [address] Magn[facility] Magnesium 2.0 mg/dL Normal 1.6-2.6 [facility] Comment on above: Performed By: #### C CAITYJ ####Lauro RODRIGUEZ, [facility] [place] [address] CBC with Diffon 02-14-2017 Erythrocyte distribution width Auto Ratio (RBC) 12.8 % Normal 11.7-15.0 [facility] Comment on above: Performed By: #### C BCGary ####[facility] [address] Erythrocytes (RBC) 4.61 M/UL Normal 4.0-4.9 [facility] Comment on above: Performed By: #### C BCD ####[address] [address] Hematocrit (HCT) 41.6 % Normal 36-44 [facility] Comment on above: Performed By: #### C BCD ####[address] [address] Hemoglobin mass conc (Bld) 13.2 g/dL Normal 12.0-15.0 [facility] Comment on above: Performed By: #### C TIEND ####[place] [address] [facility] [place]note 2][place] [address] MCH 28.6 pg Normal 26-34 [facility] Comment on above: Performed By: #### C BCD ####[facility] LaboratoryArke [place] [address] [place] [address] MCHC mass conc (RBC) 31.7 % Normal 31-37 [facility] Comment on above: Performed By: #### C BCD ####[place] [address] [address] AveWillomilwaukee [facility] [place][note 2][place] [address] MCV 90.2 fL Normal 80-100 [facility] Comment on above: Performed By: #### C BCD ####[place] [address] AveWillomilwaukee [facility]– [place][note 2][place] [address] RDW-SD 41.7 FL Normal 37.0-54.0 [facility] Comment on above: Performed By: #### C BCD ####[place] [address] [place] [address] AB IMMATURE NEUT 0.02 K/UL Normal 0.0-0.1 [facility] Comment on above: Performed By: #### C BCD ####[place] [address] [place] [address] ABS BASO 0.06 K/UL Normal 0.00-0.22 [facility] Comment on above: Performed By: #### C BCD ####[facility] LaboratoryTraci [place] [address] [address] ABS EOS 0.21 K/UL Normal 0-0.45 [facility] Comment on above: Performed By: #### C BCD ####[place] [address] [place] [address] ABS.NEUT.CALCULATED Normal [facility] Comment on above: Result Comment: NOT MEASUREDPerformed at [facility],[address] [facility] [address] Performed By: #### C BCD ####[place] [address] [place] [address] Basophils/100 WBC Auto (Bld) 0.70 % Normal 0-1 [facility] Comment on above: Performed By: #### C BCD ####[facility] LaboratoryLake Mbul[address] [place] [address] DIFF TYPE AUTO DIFF Normal [facility] Comment on above: Performed By: #### C BCD ####[facility] LaboratoryLake [address]qcw[address] [place] [address] Eosinophils/100 leukocytes 2.50 % Normal 0-3 [facility] Comment on above: Performed By: #### C BCD ####[facility] [id number] [place] [address] IMMATURE NEUT % 0.20 % Normal 0.0-1.0 [facility] Comment on above: Performed By: #### C BCD ####[facility] [id number] [place] [address] Lymphocytes 2.64 10*3/uL Normal 1.2-3.2 [facility] Comment on above: Performed By: #### C BCD ####[facility] [id number] [place] [address] Lymphocytes/100 leukocytes 30.90 % Normal 20-40 [facility] Comment on above: Performed By: #### C BCD ####[facility] Gypw[address] [place] [address] MEAN PLT VOL 10.5 CU Normal 7.0-12.6 [facility] Comment on above: Performed By: #### C BCD ####[facility] Rsgt[address] [place] [address] Monocytes 0.52 10*3/uL Normal 0-0.8 [facility] Comment on above: Performed By: #### C BCD ####[facility] Ufiz[address] [place] [address] Monocytes/100 leukocytes 6.10 % Normal 0-8 [facility] Comment on above: Performed By: #### C BCD ####[facility] Inii[address] [place] [address] Neutrophils 5.09 10*3/uL Normal 1.8-7.7 [facility] Comment on above: Performed By: #### C BCD ####[facility] Hrps[address] [place] [address] Neutrophils/100 leukocytes 59.60 % Normal 50-70 [facility] Comment on above: Performed By: #### C BCD ####[facility] Wakn[address] [place] [address] Platelets 348 10*3/uL Normal 150-450 [facility] Comment on above: Performed By: #### C BCD ####[facility] Ftzk[address] [place] [address] WBC (Leukocytes) 8.5 10*3/uL Normal 4.5-11.0 [facility] Comment on above: Performed By: #### C BCD ####[facility] Khhk[address] [place] [address] COMPREHENSIVE METABOLIC PANE [facility] 02-14-2017 Alanine aminotransferase (ALT) 22 U/L Normal 5-40 [facility] Comment on above: Performed By: #### C LITERACY TUTOR ####[facility] Wyez[address] [place] [address] Albumin 4.8 g/dL Normal 3.5-5.0 [facility] Comment on above: Performed By: #### C LITERACY TUTOR ####[facility] Ccft[address] [place] [address] Albumin/Globulin Ratio 1.8 {ratio} Normal 1.5-3.0 [facility] Comment on above: Performed By: #### C LITERACY TUTOR ####[facility] [address] [place] [address] Alkaline phosphatase (ALP) 53 U/L Normal 35-125 [facility] Comment on above: Performed By: #### C LITERACY TUTOR ####[facility] Ftrc[address] [place] [address] Anion gap 14 mmol/L Normal 0-19 [facility] Comment on above: Performed By: #### C LITERACY TUTOR ####[facility] Zfrz[address] [place] [address] Aspartate aminotransferase (AST) 16 U/L Normal 5-40 [facility] Comment on above: Performed By: #### C LITERACY TUTOR ####[facility] Jbmi[address] AveWill[facility] [place][note 2][place] [address] Bilirubin (total) 0.3 mg/dL Normal 0.1-1.2 [facility] Comment on above: Performed By: #### C LITERACY TUTOR ####[facility] Etqe[address] [place] [address] BUN/Creatinine Ratio 13.8 RATIO Normal 8-21 [facility] Comment on above: Performed By: #### C LITERACY TUTOR ####[facility] [place] [address] [place] [address] Calcium 9.5 mg/dL Normal 8.5-10.4 [facility] Comment on above: Performed By: #### C LITERACY TUTOR ####[facility] LaboratoryJoanna [place] [id number] [place] [address] Chloride 101 mmol/L Normal 97-107 [facility] Comment on above: Performed By: #### C LITERACY TUTOR ####[facility] LaboratoryTr[facility] [place] [address] [place]note 2][place] [address] CO2 24 mmol/L Normal 24-31 [facility] Comment on above: Performed By: #### C LITERACY TUTOR ####[facility] [place] [address] [place]note 2[place] [address] Creatinine 0.8 mg/dL Normal 0.4-1.6 [facility] Comment on above: Performed By: #### C LITERACY TUTOR ####[place] [address]Willom[facility] [place][note 2][place] [address] eGFR (MDRD) Normal [facility] Comment on above: Result Comment: 96GF R ml/min/1.73m2 Stage -----90 160-89 230-59 315-29 4<15 5For -Americans, multiply EGFR result by 1.210Calculation not validated for patients under 18 years of age.Performed at [facility],[address] [place] [address] Performed By: #### C LITERACY TUTOR ####[facility] Uagx[address] AveWillomilwaukee [facility] [place]note 2[place] [address] Globulin 2.7 g/dL Normal 1.9-3.7 [facility] Comment on above: Performed By: #### C LITERACY TUTOR ####[address] [place] [address] Glucose mass conc 82 mg/dL Normal 65-99 [facility] Comment on above: Performed By: #### C LITERACY TUTOR ####Magdiel [address] [place] [address] Potassium molar conc 4.7 mmol/L Normal 3.4-5.1 [facility] Comment on above: Performed By: #### C LITERACY TUTOR ####[address] [place] [address] Protein 7.5 g/dL Normal 5.9-7.9 [facility] Comment on above: Performed By: #### C LITERACY TUTOR ####[address] [place] [address] Sodium 139 mmol/L Normal 133-145 [facility] Comment on above: Performed By: #### C LITERACY TUTOR ####[address] [place] [address] Urea nitrogen 11 mg/dL Normal 8-25 [facility] Comment on above: Performed By: #### C LITERACY TUTOR ####[address] [address] TSHon 02-14-2017 Thyroid stimulating hormone (TSH) Normal 0.27-4.20 [facility] Comment on above: Result Comment: 1.91 THIS TSH ASSAY HAS A FUNCTIONAL SENSITIVITY OF 0.01 MIU/L. THIS MEETSREQUIREMENTS OF A 3RD GENERATION HIGH SENSITIVE TSH ASSAY.Performed at [facility],[address] [place] [address] Performed By: #### T SHR ####[address] [address] GC/CHLAMYDIA BY AMPon 2016 GC/CHLAMYDIA BY AMP [...] perform high complexitytesting.Per formed at Artem[facility] Chao, [address] [place] [address], [address] Comment on above: Performed By: #### G PGCCT ####Artemio Romero[address] [place] [address], [address] [place] [address] Liquid PAPon 02-06-2017 Liquid PAP Patient Name: KARLA TUTTLE [facility] [place] [facility]. Rec. #: [id number] CYTOLOGIC DIAGNOSISSPECIMEN ADEQUACY:Satisfactory for evaluation.Endocervic al transformation zone component present.Partial obscuring by inflammation present.GENERAL CATEGORIZATION:Negati ve for intraepithelial lesion or malignancy.See interpretation-result .INTERPRETATION/RESUL T:Negative for intraepithelial lesion or malignancy.The above diagnosis was rendered at [employer], [address] [place] [address], CLIA number [id number].This information is included on the report as [...] this screening test, please call thepathology laboratory. [facility] Comment on above: Performed By: #### 8 [facility] ####[address] [place] [address] Vital Signs Date Time Vital Sign Value Performing Clinician Carolina amin 11-29-2024 09:48-0400 Body height 167.64 cm No Primary Care Physician [facility] 11-29-2024 09:48-0400 Body mass index (BMI) [Ratio] 35.4 kg/m2 No Primary Care Physician [facility] 11-29-2024 09:48-0400 Body weight 99.47 kg No Primary Care Physician [facility] 11-29-2024 09:48-0400 Diastolic blood pressure 75 mm[Hg] No Primary Care Physician [facility] 11-29-2024 09:48-0400 Systolic blood pressure 113 mm[Hg] No Primary Care Physician [facility] 11-02-2024 08:11-0400 Body height 167.64 cm No Primary Care Physician [facility] 11-02-2024 08:07-0400 Body mass index (BMI) [Ratio] 35.5 kg/m2 No Primary Care Physician [facility] 11-02-2024 08:07-0400 Body weight 99.79 kg No Primary Care Physician [facility] 11-02-2024 08:07-0400 Diastolic blood pressure 74 mm[Hg] No Primary Care Physician [facility] 11-02-2024 08:07-0400 Systolic blood pressure 119 mm[Hg] No Primary Care Physician [facility] 10-05-2024 09:56-0400 Body weight 100.06 kg No Primary Care Physician [facility] 10-05-2024 09:56-0400 Diastolic blood pressure 76 mm[Hg] No Primary Care Physician [facility] 10-05-2024 09:56-0400 Systolic blood pressure 134 mm[Hg] No Primary Care Physician [facility] 10-05-2024 09:36-0400 Body height 167.64 cm No Primary Care Physician [facility] 09-06-2024 08:29-0400 Body height 167.64 cm No Primary Care Physician [facility] 09-06-2024 08:29-0400 Body mass index (BMI) [Ratio] 35.9 kg/m2 No Primary Care Physician [facility] 09-06-2024 08:29-0400 Body weight 100.81 kg No Primary Care Physician [facility] 09-06-2024 08:29-0400 Diastolic blood pressure 84 mm[Hg] No Primary Care Physician [facility] 09-06-2024 08:29-0400 Systolic blood pressure 139 mm[Hg] No Primary Care Physician [facility] 08-05-2024 10:38-0400 Body height 167.64 cm No Primary Care Physician [facility] 08-05-2024 10:38-0400 Body mass index (BMI) [Ratio] 36.4 kg/m2 No Primary Care Physician [facility] 08-05-2024 10:38-0400 Body weight 102.51 kg No Primary Care Physician [facility] 08-05-2024 10:38-0400 Diastolic blood pressure 73 mm[Hg] No Primary Care Physician [facility] 08-05-2024 10:38-0400 Systolic blood pressure 123 mm[Hg] No Primary Care Physician [facility] 06-24-2023 14:00-0400 Body temperature 98.2 [degF] No Primary Care Physician [facility] 06-24-2023 14:00-0400 Diastolic blood pressure 80 mm[Hg] No Primary Care Physician [facility] 06-24-2023 14:00-0400 Heart rate 88 /min No Primary Care Physician [facility] 06-24-2023 14:00-0400 Respiratory rate 16 /min No Primary Care Physician [facility] 06-24-2023 14:00-0400 SaO2% (BldA) [Mass fraction] 99 % No Primary Care Physician [facility] 06-24-2023 14:00-0400 Systolic blood pressure 130 mm[Hg] No Primary Care Physician [facility] 06-21-2023 05:58-0400 Body height 167.64 cm No Primary Care Physician [facility] 06-21-2023 05:58-0400 Body mass index (BMI) [Ratio] 37.5 kg/m2 No Primary Care Physician [facility] 06-21-2023 05:58-0400 Body weight 105.68 kg No Primary Care Physician [facility] 06-20-2023 22:01-0400 Diastolic blood pressure 81 mm[Hg] No Primary Care Physician [facility] 06-20-2023 22:01-0400 Heart rate 107 /min No Primary Care Physician [facility] 06-20-2023 22:01-0400 Systolic blood pressure 134 mm[Hg] No Primary Care Physician [facility] 06-20-2023 21:51-0400 Body height 167.64 cm No Primary Care Physician [facility] 06-20-2023 21:51-0400 Body mass index (BMI) [Ratio] 37.5 kg/m2 No Primary Care Physician [facility] 06-20-2023 21:51-0400 Body weight 105.4 kg No Primary Care Physician [facility] 06-19-2023 16:25-0400 Body temperature 97.6 [degF] No Primary Care Physician [facility] 06-19-2023 16:24-0400 Diastolic blood pressure 74 mm[Hg] No Primary Care Physician [facility] 06-19-2023 16:24-0400 Heart rate 86 /min No Primary Care Physician [facility] 06-19-2023 16:24-0400 Systolic blood pressure 131 mm[Hg] No Primary Care Physician [facility] 06-19-2023 16:12-0400 Body height 167.64 cm No Primary Care Physician [facility] 06-19-2023 16:12-0400 Body mass index (BMI) [Ratio] 37.9 kg/m2 No Primary Care Physician [facility] 06-19-2023 16:12-0400 Body weight 106.59 kg No Primary Care Physician [facility] 06-16-2023 08:18-0400 Body mass index (BMI) [Ratio] 37.4 kg/m2 No Primary Care Physician [facility] 06-16-2023 08:18-0400 Body weight 105.23 kg No Primary Care Physician [facility] 06-16-2023 08:18-0400 Diastolic blood pressure 82 mm[Hg] No Primary Care Physician [facility] 06-16-2023 08:18-0400 Systolic blood pressure 129 mm[Hg] No Primary Care Physician [facility] 06-10-2023 08:06-0400 Body mass index (BMI) [Ratio] 37.5 kg/m2 No Primary Care Physician [facility] 06-10-2023 08:06-0400 Body weight 105.68 kg No Primary Care Physician [facility] 06-10-2023 08:06-0400 Diastolic blood pressure 85 mm[Hg] No Primary Care Physician [facility] 06-10-2023 08:06-0400 Systolic blood pressure 131 mm[Hg] No Primary Care Physician [facility] 06-03-2023 08:19-0400 Body mass index (BMI) [Ratio] 37.3 kg/m2 No Primary Care Physician [facility] 06-03-2023 08:19-0400 Body weight 104.94 kg No Primary Care Physician [facility] 06-03-2023 08:19-0400 Diastolic blood pressure 79 mm[Hg] No Primary Care Physician [facility] 06-03-2023 08:19-0400 Systolic blood pressure 131 mm[Hg] No Primary Care Physician [facility] 05-28-2023 16:10-0400 Body height 167.64 cm No Primary Care Physician [facility] 05-28-2023 16:10-0400 Body mass index (BMI) [Ratio] 37.5 kg/m2 No Primary Care Physician [facility] 05-28-2023 16:10-0400 Body weight 105.4 kg No Primary Care Physician [facility] 05-28-2023 16:10-0400 Diastolic blood pressure 81 mm[Hg] No Primary Care Physician [facility] 05-28-2023 16:10-0400 Systolic blood pressure 128 mm[Hg] No Primary Care Physician [facility] 05-13-2023 08:06-0400 Body height 167.64 cm No Primary Care Physician [facility] 05-13-2023 08:06-0400 Body mass index (BMI) [Ratio] 37.1 kg/m2 No Primary Care Physician [facility] 05-13-2023 08:06-0400 Body weight 104.32 kg No Primary Care Physician [facility] 05-13-2023 08:06-0400 Diastolic blood pressure 80 mm[Hg] No Primary Care Physician [facility] 05-13-2023 08:06-0400 Systolic blood pressure 124 mm[Hg] No Primary Care Physician [facility] 04-28-2023 08:23-0400 Body mass index (BMI) [Ratio] 36.6 kg/m2 No Primary Care Physician [facility] 04-28-2023 08:23-0400 Body weight 103.07 kg No Primary Care Physician [facility] 04-28-2023 08:23-0400 Diastolic blood pressure 83 mm[Hg] No Primary Care Physician [facility] 04-28-2023 08:23-0400 Systolic blood pressure 129 mm[Hg] No Primary Care Physician [facility] 04-16-2023 15:38-0500 Body mass index (BMI) [Ratio] 37 kg/m2 No Primary Care Physician [facility] 04-16-2023 15:38-0500 Body weight 104.09 kg No Primary Care Physician [facility] 04-16-2023 15:38-0500 Diastolic blood pressure 80 mm[Hg] No Primary Care Physician [facility] 04-16-2023 15:38-0500 Systolic blood pressure 126 mm[Hg] No Primary Care Physician [facility] 03-27-2023 08:02-0500 Body height 167.64 cm No Primary Care Physician [facility] 03-27-2023 08:02-0500 Body mass index (BMI) [Ratio] 36.6 kg/m2 No Primary Care Physician [facility] 03-27-2023 08:02-0500 Body weight 102.96 kg No Primary Care Physician [facility] 03-27-2023 08:02-0500 Diastolic blood pressure 74 mm[Hg] No Primary Care Physician [facility] 03-27-2023 08:02-0500 Systolic blood pressure 118 mm[Hg] No Primary Care Physician [facility] 02-27-2023 08:09-0500 Body mass index (BMI) [Ratio] 36.3 kg/m2 No Primary Care Physician [facility] 02-27-2023 08:09-0500 Body weight 102.22 kg No Primary Care Physician [facility] 02-27-2023 08:09-0500 Diastolic blood pressure 82 mm[Hg] No Primary Care Physician [facility] 02-27-2023 08:09-0500 Systolic blood pressure 134 mm[Hg] No Primary Care Physician [facility] 01-30-2023 11:58-0500 Body mass index (BMI) [Ratio] 36.2 kg/m2 No Primary Care Physician [facility] 01-30-2023 11:58-0500 Body weight 101.77 kg No Primary Care Physician [facility] 01-30-2023 11:58-0500 Diastolic blood pressure 84 mm[Hg] No Primary Care Physician [facility] 01-30-2023 11:58-0500 Systolic blood pressure 134 mm[Hg] No Primary Care Physician [facility] 12-27-2022 14:39-0500 Body mass index (BMI) [Ratio] 36.5 kg/m2 No Primary Care Physician [facility] 12-27-2022 14:39-0500 Body weight 102.56 kg No Primary Care Physician [facility] 12-27-2022 14:39-0500 Diastolic blood pressure 86 mm[Hg] No Primary Care Physician [facility] 12-27-2022 14:39-0500 Systolic blood pressure 135 mm[Hg] No Primary Care Physician [facility] Encounters Encounter Date Encounter Type Care Provider Facility Start: 11-29-2024 End: 11-29-2024 Patient encounter procedure Kavitha MATHEWS -[facility] Work Phone: Start: 11-29-2024 End: 11-29-2024 ambulatory No Primary Care Physician Facility:[facility] Start: 11-16-2024 End: 11-16-2024 ambulatory MD NO PRIMARY CARE [facility] Start: 11-02-2024 End: 11-02-2024 Patient encounter procedure Liane LOPEZ -[facility] Work Phone: Start: 11-02-2024 End: 11-02-2024 ambulatory No Primary Care Physician [facility] Start: 11-01-2024 End: 11-01-2024 ambulatory NO PRIMARY CARE [facility] Start: 10-05-2024 End: 10-05-[address] Latoya Marquez DO -[facility] Work Phone: Start: 10-05-2024 End: 10-05-2024 ambulatory No Primary Care Physician -[facility] Start: 09-06-2024 End: 09-06-[address] Mickie Murray MD -[facility] Work Phone: Start: 09-06-2024 End: 09-06-2024 ambulatory No Primary Care Physician -[facility] Start: 09-06-2024 End: 09-06-2024 ambulatory No Primary Care Physician Facility:[facility] Start: 08-05-2024 End: 08-05-2024 ambulatory No Primary Care Physician [facility] Work Phone: Start: 08-05-2024 End: 08-05-2024 Patient encounter procedure Kavitha Boyer CNM -[facility] Work Phone: Start: 08-05-2024 End: 08-05-2024 Patient encounter procedure Kavitha Boyer CNM -[facility] Work Phone: Start: 08-05-2024 End: 08-05-2024 ambulatory No Primary Care Physician [facility] Work Phone: Start: 08-05-2024 End: 08-05-2024 ambulatory Kavitha Merlin Facility:[facility] Start: 06-24-2023 Non-patient / Non-visit No Julia Casanova Physician [facility] Start: 06-23-2023 Non-patient / Non-visit No Julia rodriguez [facility] Physician [facility] Start: 06-22-2023 Non-patient / Non-visit No Julia Casanova Physician [facility] Start: 06-21-2023 End: 06-24-2023 Evaluation and management of inpatient [facility] Work [facility] Start: 06-21-2023 Non-patient / Non-visit No Julia Casnaova Physician [facility] Start: 06-20-2023 End: 06-20-2023 ambulatory No Primary Care Physician [facility] Work Phone: Start: 06-20-2023 End: 06-20-2023 Patient encounter procedure No Primary Care Physician [facility] Work Phone: Start: 06-19-2023 Non-patient / Non-visit No Julia Casanova Physician [facility] Start: 06-19-2023 End: 06-19-2023 ambulatory No Primary Care Physician [facility] Work Phone: Start: 06-19-2023 End: 06-19-2023 Patient encounter procedure No Primary Care Physician [facility] Work Phone: Start: 06-16-2023 End: 06-16-2023 Patient encounter procedure No Primary Care Physician [facility] Work Phone: Start: 06-10-2023 End: 06-10-2023 Patient encounter procedure No Primary Care Physician [facility] Work Phone: Start: 06-03-2023 End: 06-03-2023 Patient encounter procedure No Primary Care Physician [facility] Work Phone: Start: 05-28-2023 End: 05-28-2023 ambulatory No Primary Care Physician [facility] Work Phone: Start: 05-28-2023 End: 05-28-2023 Patient encounter procedure No Primary Care Physician [facility] Specimen Work Phone: Start: 05-28-2023 End: 05-28-2023 Patient encounter procedure No Primary Care Physician [facility] Work Phone: Start: 05-13-2023 End: 05-13-2023 ambulatory No Primary Care Physician [facility] Work Phone: Start: 05-13-2023 End: 05-13-2023 Patient encounter procedure No Primary Care Physician [facility] Work Phone: Start: 04-28-2023 End: 04-28-2023 Patient encounter procedure No Primary Care Physician [facility] Work Phone: Start: 04-16-2023 End: 04-16-2023 Patient encounter procedure No Primary Care Physician [facility] Work Phone: Start: 03-27-2023 End: 03-27-2023 ambulatory No Primary Care Physician [facility] Work Phone: Start: 03-27-2023 End: 03-27-2023 Patient encounter procedure No Primary Care Physician [facility] Work Phone: Start: 03-05-2023 End: 03-05-2023 Subsequent hospital visit by physician Xiao Horowitz MD Work Phone: [facility] Comment on above: Screening, , for malformation by ultrasound Start: 02-27-2023 End: 02-27-2023 Patient encounter procedure No Primary Care Physician [facility] Work Phone: Start: 01-30-2023 End: 01-30-2023 Patient encounter procedure No Primary Care Physician [facility] Work Phone: Start: 12-27-2022 End: 12-27-2022 Patient encounter procedure No Primary Care Physician [facility] Work Phone: Start: 12-12-2022 End: 12-12-2022 Patient encounter procedure No Primary Care Physician [facility] Pav[facility] Start: 05-30-2021 End: 05-30-2021 ambulatory Yareli Lemus MD Work Phone: Neurology Comment on above: Procedure test results Start: 05-30-2021 E-mail encounter fro m caregiver Yareli Lemus MD Work Phone: [facility] Start: 05-30-2021 End: 05-30-2021 Patient encounter procedure Autonomic 1 Neur Main Work Phone: [facility] Start: 05-28-2021 End: 05-28-2021 ambulatory Autonomic Main Neurology Comment on above: Procedure Start: 05-28-2021 End: 05-28-2021 Patient encounter procedure Autonomic 2 Neur Main [facility] Start: 04-29-2017 Ambulatory LAINEY Myers ity:[facility] Jared Emery Start: 03-24-2017 End: 03-25-2017 Emergency department patient visit EV SIDDIQUI [facility] Start: 02-14-2017 Ambulatory RACHEL VALENCIA Facdiego lity:UNKNOWN Start: 02-06-2017 Ambulatory GABRIELLA DUARTE [facility] Procedures Date Procedure Procedure Detail Performing Clinician [...] HCV Quant by PCR testing - HCVPCR #[id number] Non Reactive: < 0.8 Equivocal: >/= 0.8 to < 1.0 Reactive: >/= 1.0The CDC requires that a reactive/equivocal HCV antibody result be sent out for confirmation. HCV Quant by PCR testing. Start: 09-06-2024 Rubella IgG measurement No Primary Care Physician Comment on above: Antibody Result: Int erpretationNon-Reactive: Non- ImmuneReactive: ImmuneThe following results were obtained with the [employer] Rubella IgG assay. Results from assays of [...] section Previous c esarean section Liane Archer RELIABILITY TECHNICIAN-C H/O: section Previous c esarean section Kavitha Boyer CNM Plan of Treatment Date Care Activity Detail Author Start: 11-29-2024 Measurement of glucose 2 hours after glucose challenge for glucose tolerance test [facility] Start: 11-29-2024 Serologic test for syphilis [facility] Start: 11-29-2024 [facility] Start: 11-02-2024 CBC W Auto Differential panel - Blood [facility] Start: 11-02-2024 Comprehensive metabolic 2000 panel - Serum or Plasma [facility] Start: 11-02-2024 Protein/Creatinine [Ratio] in Urine [facility] Start: 09-06-2024 CBC W Auto Differential panel - Blood [facility] Start: 09-06-2024 Hemoglobin A1c/Hemoglobin.total in Blood [facility] Start: 09-06-2024 Hepatitis C antibody measurement [facility] Start: 09-06-2024 Rubella IgG measurement [facility] Start: 09-06-2024 Serologic test for syphilis [facility] Start: 09-06-2024 [facility] Start: 06-24-2023 Patient discharge [facility] Start: 06-22-2023 Application of abdominal corset [facility] Start: 06-22-2023 [facility] Start: 06-22-2023 Administration of blood product [facility] Start: 06-22-2023 Administration of blood product [facility] Start: 06-22-2023 Transfusion of blood product [facility] Start: 06-22-2023 Transfusion of red blood cells [facility] Start: 06-21-2023 Administration of medication [facility] Start: 06-21-2023 Ambulation therapy management [facility] Start: 06-21-2023 Application of device [facility] Start: 06-21-2023 End: 06-21-2023 Application of intermittent pneumatic compression device [facility] Start: 06-21-2023 Assessment of risk of venous thromboembolism [facility] Start: 06-21-2023 Catheterization of vein [facility] Start: 06-21-2023 Deep breathing and coughing exercises [facility] Start: 06-21-2023 Exercises [facility] Start: 06-21-2023 Measuring intake and output [facility] Start: 06-21-2023 Notification of physician [facility] Start: 06-21-2023 Procedure discontinued [facility] Start: 06-21-2023 Provision of activity privileges [facility] Start: 06-21-2023 Skin care [facility] Start: 06-21-2023 Vital signs measurements [facility] Start: 06-21-2023 Wound care [facility] Start: 06-21-2023 Application of abdominal corset [facility] Start: 06-21-2023 End: 06-21-2023 [facility] Start: 06-21-2023 Admission procedure [facility] Start: 06-20-2023 Nonstress test [facility] Start: 06-20-2023 Obstetric monitoring [facility] Start: 06-20-2023 Vital signs measurements [facility] Start: 06-20-2023 End: 06-21-2023 [facility] Start: 06-20-2023 Patient discharge [facility] Start: 06-19-2023 Nonstress test [facility] Start: 06-19-2023 Obstetric monitoring [facility] Start: 06-19-2023 Vital signs measurements [facility] Start: 06-19-2023 [facility] Start: 2022 FLU (#1) FLU (#1) [facility] Start: 04-11-2022 Adult depression screening assessment DEPRESSION SCREENING [facility] Start: 2021 Influenza vaccination INFLUENZA (Season Ended) [facility] Start: 10-17-2016 Microscopic observation [Identifier] in Cervix by Cyto stain Pap Smear [facility] Start: 10-17-2016 PAP TESTING PAP TESTING [facility] Start: 10-17-2014 Urine microalbumin profile DTAP,TDAP,TD (1 - Tdap) [facility] Start: 2011 MenB (1 of 2 - MenB 2-Dose Series Bexsero) MenB (1 of 2 - MenB 2-Dose Series Bexsero) [facility] Start: 10-17-2009 PEDS TO ADULT TRANSITION ANNUAL ASSESSMENT PEDS TO ADULT TRANSITION ANNUAL ASSESSMENT [facility] Start: 2007 PEDS TO ADULT TRANSITION INITIAL DISCUSSION PEDS TO ADULT TRANSITION INITIAL DISCUSSION [facility] Start: 10-17-2006 HPV VACCINE (1 - 2-dose series) HPV VACCINE (1 - 2-dose series) [facility] Start: 10-17-2002 Tetanus Diphtheria and Pertussis Vaccines (1 - Tdap) Tetanus Diphtheria and Pertussis Vaccines (1 - Tdap) [facility] Start: 10-17-2000 COVID-19 VACCINE (1) COVID-19 VACCINE (1) [facility] Start: 10-17-1996 MMR (1 of 1 - Standard series) MMR (1 of 1 - Standard series) [facility] Start: 10-17-1996 Varicella (1 of 2 - 2-dose childhood series) Varicella (1 of 2 - 2-dose childhood series) [facility] Start: 04-16-1996 COVID-19 (#1) COVID-19 (#1) [facility] Start: 1995 Hepatitis B (1 of 3 - 3-dose series) Hepatitis B (1 of 3 - 3-dose series) [facility] Alanine aminotransfe rase [Enzymatic activity/volume] in Serum or Plasma [facility] Albumin [Mass/volume ] in Serum or Plasma [facility] Alkaline phosphatase [Enzymatic activity/volume] in Serum or Plasma [facility] Anion gap in Serum o r Plasma [facility] Bilirubin, total measurement [facility] BUN/Creatinine ratio [facility] Calcium [Mass/volume ] in Serum or Plasma [facility] Carbon dioxide, tota l [Moles/volume] in Central venous blood [facility] CBC W Auto Different ial panel - Blood [facility] CBC W Auto Different ial panel - Blood [facility] Chlamydia deoxyribon ucleic acid detection [facility] CMV IgG Ab CMV IgG Ab Lab R outine Screening, , for malformation by ultrasound 03/05/2023 4:05 PM EST [facility] CMV IgM Ab CMV IgM Ab Lab R outine Screening, , for malformation by ultrasound 03/05/2023 4:05 PM EST [facility] Creatinine [Mass/vol ume] in Serum or Plasma [facility] Creatinine [Mass/vol ume] in Urine collected for unspecified duration [facility] Erythrocyte mean corpuscular volume determination [facility] Erythrocyte mean corpuscular volume determination [facility] Glucose [Mass/volume ] in Serum or Plasma [facility] Hematocrit [Volume Fraction] of Blood [facility] Hematocrit [Volume Fraction] of Blood [facility] Hemoglobin [Mass/vol ume] in Blood [facility] Hemoglobin [Mass/vol ume] in Blood [facility] Hemoglobin A1c/Hemoglobin.total in Blood [facility] Hepatitis B virus chicas rface Ag [Presence] in Serum [facility] Hepatitis C antibody measurement [facility] Leukocytes [#/volume ] in Blood [facility] Leukocytes [#/volume ] in Blood [facility] Mean corpuscular hem oglobin concentration determination [facility] Mean corpuscular hem oglobin concentration determination [facility] Mean corpuscular hem oglobin determination [facility] Mean corpuscular hem oglobin determination [facility] Measurement of renal function [facility] Neutrophil count [facility] Neutrophil count [facility] Neutrophil percent differential count [facility] Neutrophil percent differential count [facility] Patient Education [facility] Work Phone: Patient referral [facility] Work Phone: Platelets [#/volume] in Blood [facility] Platelets [#/volume] in Blood [facility] Potassium measurement [facility] Protein [Mass/volume ] in Urine [facility] Protein/Creatinine [ Mass Ratio] in Urine [facility] Red blood cell count [facility] Red blood cell count [facility] Red cell distributio n width determination [facility] Red cell distributio n width determination [facility] Rubella IgG measurement [facility] Serologic test for syphilis [facility] Serum chloride measurement [facility] Sodium measurement [facility] Total protein measurement [facility] Toxoplasma IgM Ab Toxoplasma IgM Ab Lab Routine Screening, , for malformation by ultrasound 03/05/2023 4:05 PM EST [facility] Work Phone: Urea nitrogen [Mass/ volume] in Serum or Plasma [facility] Immunization Date Immunization Notes Care Provider Fa cility 05-13-2023 tetanus toxoid, redu gail diphtheria toxoid, and acellular pertussis vaccine, adsorbed No Primary Care Physician [facility] Payers Date Payer Category Payer Self-pay [id number] 2024 Unknown [id number] 2022 Unknown [employer] [id number] 2022-Present [address] [place] [address] [id number] 2020 Unknown [employer] PPO [id number] 2020-Present [phone] [address] [place] [address] PPO [id number] 2017 Private Health Insurance [id number] 1995 Unknown [id number] 1995 Unknown [id number] Private Health Insurance [id number] Private Health Insurance [id number] Unknown [id number] Unknown [id number] Unknown [id number] Unknown [id number] Unknown [id number] 462 Unknown [id number] Unknown [id number] Unknown [id number] Social History Date Type Detail Facility Start: 01-21-2017 End: 08-05-2024 Tobacco smoking status NHIS Never smoked tobacco [facility] Start: 01-21-2017 End: 03-05-2023 Tobacco use and exposure Smokeless tobacco non-user [facility] Start: 04-13-2021 Alcohol intake Ex-drinker (finding) [facility] Start: 1995 Sex Assigned At Female C [facility] Start: 04-23-2021 End: 05-03-2021 Exposure to SARS-CoV-2 (event) Not sure [facility] Start: 03-05-2023 Alcohol intake Lifetime non-d kalin (finding) [facility] Start: 03-05-2023 History of Social function [facility] Start: 03-05-2023 Tobacco use panel [facility] Start: 09-29-2022 [facility] Start: 1995 Sex Assigned At Not on file A [facility] Start: 03-27-2023 End: 06-21-2023 Tobacco smoking status NHIS Unknown if ever smoked [facility] Sexual Orientation Heterosexual (finding) [facility] Medical Equipment Procedure Code Equipment Code Equipment [...] Assessment Result Facility 06-22-2023 Cognitive function Voice/Name [facility] Work Phone: Clinical Notes 11-13-2020 to 11-29-2024 Note Date & Type Note Facility 11-29-2024 Progress note [facility] 11-02-2024 Progress note [facility] 10-05-2024 Progress note [facility] 09-06-2024 Evaluation note Diagnosis Onset [...] 9:45am Supervision of high-risk acute November 9:45am [facility] Work Phone: 1(556) 166-916006-19-2025 Evaluation note* Diagnosis Onset Date Resolution Status Admit Date H/O hemorrhage, currently acute August 05 10:36am Obesity affecting acute August 05, 2024 10:36am acute August 05 10:36am Previous section acute August 05, 2024 10:36am Supervision of high-risk acute August 05, 2024 10:36am [facility] Work Phone: 1(788) 611-180806-19-2025 Evaluation note* Diagnosis Onset Date Resolution Status [...] of high-risk acute September 06, 2024 8:24am [facility] Work Phone: 1(162) 357-800206-19-2025 Evaluation note* Diagnosis Onset Date Resolution Status [...] Supervision of high-risk acute October 05 9:11am [facility] Work Phone: 1(880) 349-113406-19-2025 Evaluation note* Diagnosis Onset Date Resolution Status [...] of high-risk acute November 02, 2024 8:04am [facility] Work Phone: 1(756) 110-951405-07-2024 Discharge summary Author Liane Archer [facility] June 24, 2023 7:48am Note Date/Time June 24, 2023 7:48am [facility] Medical Records Department [address] [place] [address] Discharge Summary 06/24/23 0745 MR#: [id number] Acct: [id number] Name: KARLA TUTTLE Rep #:[id number] : 1995 27 From: Liane Archer NP RELIABILITY TECHNICIAN-C PCP: Care Physician,No Primary Status :ADM IN Location: [place] [address] Providers Date of Admission: 06/21/23 Primary Care [...] no.1 1 mg-dha 300 mg capsule (PNV- Reed) 1 cap PO DAILY 11/26/22 Hospital Course [...] Up With: Latoya Marquez DO When: Call [phone] to make an appointment for an incision [...] Physician,No Primary Discharge Orders/Prescriptions Prescriptions: No Action PNV-Reed 28-1-300 mg capsule 1 cap PO DAILY Referrals / Follow Up: Care Physician,No Primary [Primary Care Provider] - 06/24/23 0748 <Electronically signed by Liane Archer NP RELIABILITY TECHNICIAN-C> Cosigner Signature (if applicable): CC: RELIABILITY TECHNICIAN-C Liane Archer; No Primary Care Physician~ Signed [facility] Work Phone: 1(643) 578-914605-07-2024 Progress note Author Liane Archer [facility] June 24, 2023 7:45am Note Date/Time June 24, 2023 7:46am [facility] Medical Records Department [address] [place] [address] Progress Note - OBGYN 06/24/23 0743 MR#: [id number] Acct: [id number] Name: KARLA TUTTLE Rep #:[id number] : 1995 27 From: Laine Archer NP RELIABILITY TECHNICIAN-C PCP: Care Physician,No Primary Status :ADM IN Location: [place] [address]1 Subjective Subjective Patient doing well without complaints. [...] 0745 <Electronically signed by Liane Archer NP RELIABILITY TECHNICIAN-C> Cosigner Signature (if applicable): CC: ~ Signed [facility] Work Phone: 1(298) 647-319505-06-2024 Progress note Author Kavitha Boyer [facility] June 23, 2023 8:09am Note Date/Time June 23, 2023 8:09am [facility] Medical Records Department [address] [place] [address] Progress Note - OBGYN 06/23/23 0808 MR#: [id number] Acct: [id number] Name: KARLA TUTTLE Rep #:[id number] : 1995 27 From: Kavitha Boyer CNM PCP: Care Physician,No Primary Status :ADM IN Location: [place] [address]1 Subjective Subjective Patient doing well without complaints. [...] 77.4 H, Lymph % (Auto) 13.2 L, [place] % (Auto) 6.6, Eos % (Auto) 1.6, [...] of normal first , second trimester COMMENT: [id number], FLOR 06/22/23,girl Paige Alberto (10) : QUALIFIERS: Weeks of gestation: 39 weeks Qualified Code(s): Z3A.39 - 39 weeks gestation of COMMENT: Neg GBS. declined genetic & carrier testing Charges/Coding Multi Select Codes Urinary/Genital Urinary/Genital CPT Codes: No Charge 06/23/23 0809 <Electronically signed by Kavitha Boyer CNM> Cosigner Signature (if applicable): CC: ~ Signed [facility] Work Phone: 1(455) 541-549005-05-2024 Progress note Author Trish Beckman [facility] June 22, 2023 10:15am Note Date/Time June 22, 2023 10:03a m [facility] Medical Records Department [address] [place] [address] Progress Note - OBGYN 06/22/23 0958 MR#: [id number] Acct: [id number] Name: KARLA TUTTLE Rep #:[id number] : 1995 27 From: Trish Beckman CNM PCP: Care Physician,No Primary Status :ADM IN Location: [place] [address] Subjective Subjective Patient doing well without complaints. 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 06/21/23 1815 MR#: [id number] Acct: [id number] Name: KARLA TUTTLE Rep #:[id number] : 1995 27 From: Trish Beckman CNM PCP: Care Physician,No Primary Status :ADM IN Location: [id number] HPI - General General Date of Admission: [...] no.1 1 mg-dha 300 mg capsule (PNV- Reed) 1 cap PO DAILY 11/26/22 [History Last Taken 06/20/23] Allergy/AdvReac Type Severity Reaction Status Date / Time No Known Allergies Allergy Verified 06/21/23 06:47 Family History Grandmother Breast cancer, Onset Age: 70 Paternal Thyroid disorder Paternal- hyperthyroid Aunt Cancer Maternal - thyroid Surgical History [place] teeth removed Social History adopted: No household members: spouse current occupational status: employed current occupation: [employer] current occupational exposures/hazards: No pets and animals: [...] physical activity do you participate in: none tez/islam: None seatbelt use: always do you feel safe at home: Yes additional social history: Alberto [employer]- [employer] History 1 Elective abortions Hx Para 0 [...] is follow up us with MFM in [place]. 06/03/23 -?-?-?-?-?-?-?-?-?-?-?-?- 37w 2d 231 lb 6 [...] of normal first , second trimester COMMENT: [id number], FLOR 06/22/23,girl Paige Alberto (2) : QUALIFIERS: [...] any complications: none I have reviewed the [facility] and made any clinically relevant updates. Dr. Pastrana updated on admission, exam and poc at 0531. delayed H&P 06/21/238 <Electronically signed by Trish Beckman CNM> Cosigner Signature (if applicable): CC: MARISOL Beckman; No Primary Care Physician~ Signed [facility] Work Phone: 1(938) 527-947105-04-2024 Discharge summary Author Latoya Newman [facility] June 21, 2023 6:22pm Note Date/Time June 21, 2023 6:22pm [facility] Medical Records Department [address] [place] [address] Instructions for Home/Discharge Instructions 06/21/23 1822 MR#: [id number] Acct: [id number] Name: KARLA TUTTLE Rep #:[id number] : [...] Up With: Latoya Marquez DO When: Call [phone] to make an appointment for an incision check in 1-2 weeks. Test Results: Test results from this visit will be discussed in further detail at your follow- up appointment, if applicable. Discharge Plan Admission Admit Date/Time: 06/21/23 05:26 Attending Provider: Latoya Marquez Primary Care Provider: Edilberto PhysicianNajma Primary Discharge Orders/Prescriptions Prescriptions: No Action PNV-Reed 28-1-300 mg capsule 1 cap PO DAILY Referrals / Follow Up: Edilberto Physician,Najma Primary [Primary Care Provider] - 06/21/23 1822<Electronically signed by Latoya Marquez DO>Latoya Marquez DO CC: No Primary Care Physician ~ Signed [facility] Work Phone: 1(790) 829-354705-04-2024 Procedure [facility] 06-21-2023 Procedure [facility]05-04-2024 Consult note Author Trish Beckman [facility] June 21, 2023 2:44pm Note Date/Time June 21, 2023 2:44pm [facility] Medical Records Department [address] [place] [address] Consultation 06/21/23 1435 MR#: [id number] Acct: [id number] Name: KARLA TUTTLE Rep #:[id number] : 1995 27 From: Trish Beckman CNM PCP: Edilberto Alicea,No Primary Status :ADM IN Location: [id number] Consult Date of Consult: 06/21/23 Assessment & Plan Assessment/Plan (1) Maternal fever affecting labor: PLAN: Plan pt fully dilated, second stage developed tachycardia to 180, maternal tempto 100.5. IV fluids, and Tylenol provided. current tracing: FHT: Moderate variability reactive no decelerations category II tracing, tachycardia trending downward to 165 baseline. [place]: q3.5 minutes Contractions reviewed tracing abnormalities since [...] applicable): CC: No Primary Care Physician~ Signed [facility] Work Phone: 1([phone]) 146-331505-23-2022 NoteHNO ID: [id number] Author: Kaitlin Montilla APRN.CNM Service: ? Author Type: Monologist Type: Progress Notes Filed: 07/09/2021 10:31 AM [...] OB History No obstetric history on file. 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 Author Type: [...] of Care Visit completed when applicable. [facility]olly [facility] History of Present illness Narrative* [...] when applicable. Dolly Bermudez [facility] NoteHNO ID: [id number] Author: Naila Berry Service: ? Author Type: [...] of Care Visit completed when applicable. Naila AguilarnadegeMer[facility]04-11-2022 History of Present illness Narrative* [...] when applicable. Naila Aguilarnadege [facility]-2022 NoteHNO ID: [id number] Author: RT Ronnell(R) Service: ? Author Type: [...] BY: RT Ronnell(R) May 01, 2021 2:40 [facility]02-25-2022 NoteHNO ID: [id number] Author: Yareli Lemus MD Service: ? Author Type: Physician Type: Progress Notes Filed: 04/13/2021 10:33 AM Note Text: General Neurology Outpatient Clinic - new patient evaluation Date: April 13, 2021 Patient Name: Karla Tuttle Referring physician: Shelley Overton [address] [facility] [address] [facility] [address] Primary [place]: [place] [address] [place] [address] Reason for Evaluation: lightheadedness HPI: The pt [...] table evaluation but those records are unavailable. cardiac monitor neg for arrhthymias, echo without structural [...] Negative for joint pain (more content not included)...[facility]02-14-2022 NoteHNO ID: [id number] Author: Shelley Overton APRN.MAGALIS Service: ? Author [...] injection (DEFINITY) INTRAVENOUS DIRECTED PRN Rachel Moon, BIOINFORMATICS SCIENTIST.SECURITY INTERN - sodium chloride 0.9 % (flush) 10 mL (BD POSIFLUSH) 10 mL INTRAVENOUS DIRECTED PRN Rachel Moon APRN.SECURITY INTERN Review of Systems Constitutional: Negative for chills, [...] and oriented t (more content not included)... [facility]01-03-2022 NoteHNO ID: [id number] Author: Shelley Overton APRN.MAGALIS Service: ? Author Type: Nurse Practitioner Type: Progress Notes Filed: 02/21/2021 10:15 AM Note Text: [facility] SECTION OF REGIONAL CARDIOLOGY Cardiology ([place] [facility] [address] [facility] [id number] OUTPATIENT VISIT February 19, 2021 2:00 PM [...] injection (DEFINITY) INTRAVENOUS DIRECTED PRN Rachel Moon APRN.SECURITY INTERN - sodium chloride 0.9 % (flush) 10 mL (BD POSIFLUSH) 10 mL INTRAVENOUS DIRECTED PRN Rachel Moon APRN.SECURITY INTERN Review of Systems Constitutional: Negative for chills, [...] kg) Physical Exam HENT: (more content not included)...[facility]10-01-2021 NoteHNO ID: [id number] Author: Ashlee Golden MD Service: Interventional Cardiology Author Type: Physician Type: Procedures Filed: 12/21/2020 10:21 AM Note Text: Patient Name: Karla Tuttle : 1995 Ordering Provider: RACHEL MOON Indication: R00.2 Palpitations Type of Monitor: Extended Monitoring-Zio Patch Enrollment Dates: 11/23/2020-12/07/2020[facility]09-27-2021 Note HNO ID: [id number] Author: Rachel Moon APRN.SECURITY INTERN Service: ? Author Type: Nurse Practitioner Type: [...] happen when standing up. Tilt table through [facility]. Dr. Natalio perry/ [facility]. Neurology. Has never had an echo. Has [...] 1.1 MG/ML INJECTION IN (more content not included)...[facility] Diagnosis Paresthesia of skin- Primary Disturbance of skin sensation Orthostatic lightheadedness Dizziness and giddiness [facility] Orthostatic lightheadedness- Primary Dizziness and giddiness [facility] Screening, , for malformation by ultrasound Encounter for routine screening for malformation using ultrasonics [facility] Diagnosis Onset Date Resolution Status Obesity affecting , antepartum acute acute Supervision of normal first acute Obesity affecting , antepartum acute acute Supervision of normal first acute Abnormal ultrasound [place] Obesity affecting , antepartum acute acute Supervision of normal first acute Abnormal ultrasound [place] Anemia in preg-unspec acute Obesity affecting , antepartum acute acute Supervision of normal first acute [facility] Work Phone: Evaluation note* Diagnosis Onset Date Resolution Status Obesity affecting , antepartum acute acute Supervision of normal first acute Abnormal ultrasound [place] Obesity affecting , antepartum acute acute Supervision of normal first acute Abnormal ultrasound [place] Anemia in preg-unspec acute Obesity affecting , antepartum acute acute Supervision of normal first acute Abnormal ultrasound [place] Abnormal glucose complicating childbirth acute Anemia in preg-unspec acute Obesity affecting , antepartum acute acute Supervision of normal first acute Abnormal ultrasound [place] Abnormal glucose complicating childbirth acute Anemia in preg-unspec acute Obesity affecting , antepartum acute acute Supervision of normal first acute Abnormal ultrasound [place] Abnormal glucose complicating childbirth acute Anemia in preg-unspec acute Obesity affecting , antepartum acute acute Supervision of normal first acute [facility] Work Phone: Evaluation note* Diagnosis Onset Date Resolution Status Abnormal ultrasound [place] Obesity affecting , antepartum acute acute Supervision of normal first acute Abnormal ultrasound [place] Anemia in preg-unspec acute Obesity affecting , antepartum acute acute Supervision of normal first acute Abnormal ultrasound [place] Abnormal glucose complicating childbirth acute Anemia in preg-unspec acute Obesity affecting , antepartum acute acute Supervision of normal first acute Abnormal ultrasound [place] Abnormal glucose complicating childbirth acute Anemia in preg-unspec acute Obesity affecting , antepartum acute acute Supervision of normal first acute Abnormal ultrasound [place] Abnormal glucose complicating childbirth acute Anemia in preg-unspec acute Obesity affecting , antepartum acute acute Supervision of normal first acute Abnormal ultrasound [place] Abnormal glucose complicating childbirth acute Anemia in preg-unspec acute Obesity affecting , antepartum acute acute Supervision of normal first acute [facility] Work Phone: Evaluation note* Diagnosis Onset Date Resolution Status Abnormal ultrasound [place] Obesity affecting , antepartum acute acute Supervision of normal first acute Abnormal ultrasound [place] Anemia in preg-unspec acute Obesity affecting , antepartum acute acute Supervision of normal first acute Abnormal ultrasound [place] Abnormal glucose complicating childbirth acute Anemia in preg-unspec acute Obesity affecting , antepartum acute acute Supervision of normal first acute Abnormal ultrasound [place] Abnormal glucose complicating childbirth acute Anemia in preg-unspec acute Obesity affecting , antepartum acute acute Supervision of normal first acute Abnormal ultrasound [place] Abnormal glucose complicating childbirth acute Anemia in preg-unspec acute Obesity affecting , antepartum acute acute Supervision of normal first acute Abnormal ultrasound [place] Abnormal glucose complicating childbirth acute Anemia in preg-unspec acute Obesity affecting , antepartum acute acute Supervision of normal first acute Abnormal ultrasound [place] Abnormal glucose complicating childbirth acute Anemia in preg-unspec acute Obesity affecting , antepartum acute acute Supervision of normal first acute Abnormal ultrasound [place] Abnormal glucose complicating childbirth acute Anemia in preg-unspec acute Obesity affecting , antepartum acute acute Supervision of normal first acute Abnormal ultrasound [place] Abnormal glucose complicating childbirth acute Anemia in preg-unspec acute Obesity affecting , antepartum acute acute Supervision of normal first acute [facility] Work Phone: Evaluation note* Diagnosis Onset Date [...] acute resolved Supervision of normal first resolved [facility] Work Phone: Evaluation noteNo assessment information available [facility] Work Phone: Progress note Author Mickie Murray [facility] June 19, 2023 5:15pm Note Date/Time June 19, 2023 5:15pm [facility] Medical Records Department [address] [address] OB Triage Progress Note 06/19/231713 MR#: [id number] Acct: [id number] Name: KARLA TUTTLE Rep #:[id number] : 1995 27 From: Mickie obrien MD PCP: Care Physician,No Primary Status :REG CLI Y DOS: Location: [place] [address] Progress Notes Progress Note: Patient presents for triage evaluation secondary to decresaed movement FHT: 140 Moderate variability reactive no decelerations category I tracing [place]: irregular Contractions Assessment and plan: decreased movement- now feeling some, Reactive NST, reassuring maternal and status patient discharged to home to follow-up as scheduled, reviewed kick count precautions. See problem list details for additional plan information. Charges/Coding Procedures Urinary/Genital 52xxx-59xxx: 15526-53 non-stress test Interp 06/19/231714 <Electronically signed by Mickie armenta MD> Date _ Mickie Murray MD Cosigner Signature (if applicable): Date CC: Dr. Mickie Murray MD; No Primary Care Physician ~ Signed [facility] Work Phone: Progress note Author Latoya Newman [facility] Note Date/Time October 05, 2024 9: 56am [facility] [address], [address] [place] [address] OFFICE VISIT Date of Service: 10/05/24 MR#: [id number] Acct: [id number] Name: DWAINKARLA PONCE Rep #: [id number] : 1995 Provider: Dr. Gauri Marquez DO Age/Sex: 28/F Location: [facility] Status: Signed Intake Vital Signs 08/05/24 10:38 09/06/24 08:29 10/05/24 09:36 10/05/24 09:56 Height 5 ft 6 in 5 ft 6 in 5 ft 6 in Weight: 220 lb 9.6 oz BP 134/76 H Intake Visit Reasons: 15wk ob Sap Bobj Developer Required: No Is patient in pain?: No Allergies No Known Allergies Allergy (Verified 10/05/24 09:36) Medications ?Medication ?Instructions ?Recorded ?Confirmed ?Type multivit-min no.71-iron fum 28 1 cap PO DAILY pregnanc y 11/26/22 10/05/24 History mg-folate no.1 1 mg-dha 300 mg capsule (PNV-Reed) Last Menstrual Period: 06/02/24 Zika: Zika virus screening: Negative : No PFSH PFSH Medical History Anemia in preg-unspec Chorioamnionitis, delivered, current hospitalization hemorrhage delivery delivered False labor Abnormal ultrasound Congenital abnormality ureter Surgical History Previous section [place] teeth removed Family History Grandmother Breast cancer, Onset Age: 70 Paternal Thyroid disorder Paternal- hyperthyroid Aunt Cancer, Onset Age: 53 Maternal - thyroid Social History adopted: No household members: spouse housing: house number of children: 1 current occupational status: employed current occupation: [employer] current occupational exposures/hazards: No pets and animals: [...] frequency: does not exercise duration: 45-60 minutes/day tez/islam: None seatbelt use: always do you feel safe at home: Yes additional social history: 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 Date Name GA/Weeks Outcome Route Bth Weight Infant Gen Labor Lgth Anesthesia Del Locatn Provider FOB 06/21/23 Paige 39 live - full term 6#[address] [facility] Dr. Hidalgo Delivery Date: 06/21/23 Last Updated [...] and Symptoms of Preeclampsia, Feeding No , [place] [employer] and Family Medical Leave or Disability [...] by Latoya Garcia DO> Date _ Latoya Marqeuz DO Cosigner Signature: Date (if applicable) CC: ~ [facility] Work Phone: Progress note Author Liane Archer [facility] Note Date/Time November 02, 2024 8:36am [facility] [address] [place] [address], [address] [place] [address] OFFICE VISIT Date of Service: 11/02/24 MR#: [id number] Acct: [id number] Name: KARLA DEGROOT Rep #: [id number] : 1995 Provider: JESSICA Archer Age/Sex: 29/F Location: [facility] Status: Signed Intake Vital Signs 08/05/24 10:38 10/05/24 09:36 11/02/24 08:07 11/02/24 08:11 Height 5 ft 6 in 5 ft 6 in 5 ft 6 in 5 ft 6 in Weight: 220 lb BMI 35.5 BP 119/74 Intake Visit Reasons: 20wk ob Chief Complaint: 20 Week OB Sap Bobj Developer Required: No Is patient in pain?: No Allergies No Known Allergies Allergy (Verified 11/02/24 08:06) Medications ?Medication ?Instructions ?Recorded ?Confirmed ?Type multivit-min no.71-iron fum 28 1 cap PO DAILY pregnanc y 11/26/22 11/02/24 History mg-folate no.1 1 mg-dha 300 mg capsule (PNV-Reed) Last Menstrual Period: 06/02/24 Zika: Zika virus screening: Negative : No PFSH PFSH Medical History Anemia in preg-unspec Chorioamnionitis, delivered, current hospitalization hemorrhage delivery delivered False labor Abnormal ultrasound Congenital abnormality ureter Surgical History Previous section [place] teeth removed Family History Grandmother Breast cancer, Onset Age: 70 Paternal Thyroid disorder Paternal- hyperthyroid Aunt Cancer, Onset Age: 53 Maternal - thyroid Social History adopted: No household members: spouse housing: house number of children: 1 current occupational status: employed current occupation: [employer] current occupational exposures/hazards: No pets and animals: [...] frequency: does not exercise duration: 45-60 minutes/day tez/islam: None seatbelt use: always do you feel safe at home: Yes additional social history: 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 Date Name GA/Weeks Outcome Route Bth Weight Infant Gen Labor Lgth Anesthesia Del Locatn Provider FOB 06/21/23 Paige 39 live - full term 6#[address] [facility] Dr. Marquez Alberto Delivery Date: 06/21/23 Last [...] Symptoms of Preeclampsia, Infant Feeding No , [place] [employer] and Family Medical Leave or Disability [...] 0836 <Electronically signed by Liane sunshine NP RELIABILITY TECHNICIAN-C> Date _ Liane Archer NP RELIABILITY TECHNICIAN-C Cosigner Signature: Date (if applicable) CC: ~ [facility] Work Phone: Progress note Author Kavitha Boyer [facility] Note Date/Time November 29, 2024 1 0:04am [facility] [address] [place] [address], [address] [place] [address] OFFICE VISIT Date of Service: 11/29/24 MR#: [id number] Acct: [id number] Name: KARLA DEGROOT Rep #: [id number] : 1995 Provider: MARISOL Boyer Age/Sex: 29/F Location: [facility] Status: Signed Intake Vital Signs 11/02/24 08:11 11/29/24 09:48 Height 5 ft 6 in 5 ft 6 in Weight: 219 lb 5 oz BMI 35.4 BP 113/75 Intake Visit Reasons: 24wk ob *move 01/11 appt Chief Complaint: 24wk OB Sap Bobj Developer Required: No Is patient in pain?: No Allergies No Known Allergies Allergy (Verified 11/29/24 09:47) Medications ?Medication ?Instructions ?Recorded ?Confirmed ?Type multivit-min no.71-iron fum 28 1 cap PO DAILY pregnanc y 11/26/22 11/29/24 History mg-folate no.1 1 mg-dha 300 mg capsule (PNV-Reed) Last Menstrual Period: 06/02/24 : No Have you fallen in the past year?: No PFSH PFSH Medical History Anemia in preg-unspec Chorioamnionitis, delivered, current hospitalization hemorrhage delivery delivered False labor Abnormal ultrasound Congenital abnormality ureter Surgical History Previous section [place] teeth removed Family History Grandmother Breast cancer, Onset Age: 70 Paternal Thyroid disorder Paternal- hyperthyroid Aunt Cancer, Onset Age: 53 Maternal - thyroid Social History adopted: No household members: spouse housing: house number of children: 1 current occupational status: employed current occupation: [employer] current occupational exposures/hazards: No pets and animals: [...] frequency: does not exercise duration: 45-60 minutes/day tez/islam: None seatbelt use: always do you feel safe at home: Yes additional social history: 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 Date Name GA/Weeks Outcome Route Bth Weight Gen Labor Lgth Anesthesia Del Locatn Provider FOB 06/21/23 Paige 39 live - full term 6#[address] [facility] Dr. Hidalgo Delivery Date: 06/21/23 Last Updated [...] , unspecified, second trimester Comment: PRR, , FOLR 03/09/25, PC Paige, Alberto (5) : Status: [...] Cosigner Signature: Date (if applicable) CC: ~ [facility] Work Phone: Reason for referral (narrative)No reason for referral information availableBlHenry [facility] Work Phone: Summary Purpose Family History [...] No September 20, 2020 4:48pm Power of Cardiovascular Radiologic Technologist No September 20 4:48pm Advance Directive Response Recorded Date/ Time Living Will No September 20, 2020 5:48pm Power of Cardiovascular Radiologic Technologist No September 20 5:48pm Advance Directive Response Recorded Date/ Time Living Will No June 21, 2023 6: 01am Power of Cardiovascular Radiologic Technologist No June 21, 2023 6:01am Medications Administered [...] section and content) DATE CREATED AUTHOR 08/08/2017 [facility] DATE CREATED AUTHOR AUTHOR'S ORGANIZ ATION 08/11/2017 [facility] DATE CREATED AUTHOR AUTHOR'S ORGANIZ ATION 08/12/2017 [facility] DATE CREATED AUTHOR AUTHOR'S ORGANIZ ATION 07/18/[address] [facility] DATE CREATED AUTHOR AUTHOR'S ORGANIZ ATION 11/21/2024 [facility] DATE CREATED AUTHOR AUTHOR'S ORGANIZ ATION 11/30/2024 [facility] Comments (unrecognize d section and content) In the event this informatio n is protected by the Federal Confidentiality of Alcohol and Drug Abuse Patient Records regulations: The Federal rules restrict any use of the information to criminally investigate or prosecute any alcohol or drug abuse patient.[facility] the event this information is protected by the Federal Confidentiality of Alcohol and Drug Abuse Patient Records regulations: The Federal rules restrict any use of the information to criminally investigate or prosecute any alcohol or drug abuse patient.[facility] the event this information is protected by the Federal Confidentiality of Alcohol and Drug Abuse Patient Records regulations: The Federal rules restrict any use of the information to criminally investigate or prosecute any alcohol or drug abuse patient.[facility] Reason for Visit (unrecogniz ed section and content) Reason Comments Procedure Specialty Diagnoses / Procedures Referred By Cha owens Referred To Contact Neurology / NEUROMUSCULAR Diagnoses Encounter for general adult medical examination without abnormal findings VM QSARt Procedures TESTING AUTONOMIC NERVOUS SYSTEM FUNCTION NEUR QSART Yareli Lemus MD [address] [place] [address] Neur Autonomic [facility] [place] [address] [place] [address] Referral ID Status Reason Start Date Expiration Date Visits Requested Visits Authorized [id number] Authorized Clearance Not Met - Admin/Chairm an/Director Advise to Postpone/Res chedule or Not Proceed 04/18/2021 05/08/2022 4 4 Care Teams (unrecognized sec tion and content) Last Chalker Relationship Specialty Start Date End Date Wanda Fritz [id number] [place] [address] PCP - General Pediatrics 01/21/17 Last Chalker Relationship Specialty Start Date End Date Wanda Fritz [id number] [place], [place] [id number] PCP - General Pediatrics 01/21/17 Last Chalker Relationship Specialty Start Date End Date Wanda Fritz [id number] [place] [address] PCP - General Pediatrics 01/21/17 Last Chalker Relationship Specialty Start Date End Date No Primary Care, [place] [address] PCP - General Pediatrics 01/30/23 Team Status: [...] Provider, Refer ring Provider Active Liane Archer RELIABILITY TECHNICIAN, RELIABILITY TECHNICIAN-C Attending Provider Active Team Status: Inactive Member Role Status Dates No Primary Care Physician Primary Care Provider Active Dr. Mickie Murray MD Attending Provider, Referr ing Provider Active Team Status: Inactive Member Role Status Dates No Primary Care Physician Primary Care Provider Active Liane Archer RELIABILITY TECHNICIAN, RELIABILITY TECHNICIAN-C Attending Provider, Referring Provider Active Team Status: [...] Provider, Other Pr ovider Active Liane Archer RELIABILITY TECHNICIAN, RELIABILITY TECHNICIAN-C Attending Provider Active Team Status: Inactive Member [...] 2024 End: November 02, 2024 Liane Archer RELIABILITY TECHNICIAN, RELIABILITY TECHNICIAN-C Attending Provider Active Start: November 02, 2024 End: November 02, 2024 Team Status: Active Member Role/Relationship Status Dates No Primary Care Physician Primary Care Provider Active Start: November 02, 2024 Liane Archer RELIABILITY TECHNICIAN, RELIABILITY TECHNICIAN-C Attending Provider Active Start: November 02, 2024 Liane Archer RELIABILITY TECHNICIAN, RELIABILITY TECHNICIAN-C Referring Provider Active Start: November 02, 2024 [...] 2024 End: November 02, 2024 Liane Archer RELIABILITY TECHNICIAN, RELIABILITY TECHNICIAN-C Attending physician Active Start: November 02, 2024 End: November 02, 2024 Team Status: Inactive Member Role/Relationship Status Dates No Primary Care Physician Primary care physician Activ e Start: November 02, 2024 End: November 02, 2024 Liane Archer NP, RELIABILITY TECHNICIAN-C Attending physician Active Start: November 02, 2024 End: November 02, 2024 Liane Archer RELIABILITY TECHNICIAN, RELIABILITY TECHNICIAN-C Referring Provider Active Start: November 02, 2024 [...] 2024 End: November 02, 2024 Liane Archer RELIABILITY TECHNICIAN, RELIABILITY TECHNICIAN-C Attending physician Active Start: November 02, 2024 End: November 02, 2024 Team Status: Inactive Member Role/Relationship Status Dates No Primary Care Physician Primary care physician Activ e Start: November 02, 2024 End: November 02, 2024 Liane Archer RELIABILITY TECHNICIAN, RELIABILITY TECHNICIAN-C Attending physician Active Start: November 02, 2024 End: November 02, 2024 Liane Archer RELIABILITY TECHNICIAN, RELIABILITY TECHNICIAN-C Referring Provider Active Start: November 02, 2024 [...] BE BASED ON THE PRIMARY CLINICAL RECORDS. [employer] [facility]. provides no warranty or guarantee of the accuracy or completeness of information in this document.
--- OUTSIDE RECORDS SUMMARY | 2025-02-03 19:06 | XMS RPT_ITS | CCD ---
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 Latoya Marquez Attending Provider [phone] Gianni AIRCRAFT PILOT, AIRCRAFT PILOT-C Liane Attending Provider [phone] Care Physician, No Primary Primary Care Provider Unavailable Care Physician, No Primary Referring Provider Un available Gianni AIRCRAFT PILOT, AIRCRAFT PILOT-C Liane Attending Provider [phone] Latoya Marquez Attending Provider [phone] MARISOL Boyer Attending Provider [phone] Care Physician, No Primary Primary Care Provider Unavailable Care Physician, No Primary Referring Provider Un available Gianni AIRCRAFT PILOT, AIRCRAFT PILOT-C Liane Attending Provider [phone] Dr. Mickie Murray Attending Provider [phone] Dr. Mickie Murray Referring Provider [phone] Dr. Mickie Murray Other Provider [phone] [...] Dr. Latoya Marquez DO Attending Provider Gianni AIRCRAFT PILOT-CLiane Attending Provider [phone] Gianni AIRCRA[employer] PILOT-C, Liane Referring Provider [phone] Care Physician, No Primary Primary Care Physicia n Unavailable Kavitha Boyer CNM Attending Physician [phone] Nolan SENA, Dr. Corado Attending Physician Dr. Latoya Marquez DO Attending Physician Gianni AIRCRAFT PILOT-CLiane Attending Physician [phone] PRIMARY CARE, MD [...] No Primary Primary Care Unava ilable Gianni AIRCRAFT PILOT, Liane Attending Unavailable Gianni AIRCRAFT PILOTLiane Referring Unavailable Care Physician, No Primary Primary Care Physicia n Unavailable Care Physician, No Primary Referring Provider Un available Kavitha Boyer CNM Attending Physician [phone] Medications Current Medications Medication Drug Class(es) Dates Sig (Normalized) Sig (Original) Mv-Mins 57-Ffbg-Wpoyw No.1-Dha (Pnv-Chalfont) 28-1-300 mg capsule (14 sources) Start: 11-26-2022 Mv-Mins 54-Tcka-Ugzkz No.1-Dha (Pnv-Chalfont) 28-1-300 mg capsule Active 1 NMA PO DAILY November 26, 2022 12:00am Complies with drug therapy Start: 11-26-2022 Start: 11-26-2022 Mv-Mins 71-Iro n-Folic No.1-Dha (Pnv-Chalfont) 28-1-300 mg capsule Active 1 NMA PO DAILY November 26, 2022 12:00am Start: 11-26-2022 Mv-Mins 71-Iro n-Folic No.1-Dha (Pnv-Chalfont) 28-1-300 mg capsule Active 1 NMA PO DAILY November 26, 2022 12:00am Start: 11-26-2022 take 1 capsule by mo ut once daily Mv-Mins 34-Mncg-Kpxel No.1-Dha (Pnv-Chalfont) 28-1-300 mg capsule Active 1 CAP PO DAILY November 26, 2022 12:00am Start: 11-26-2022 take 1 capsule by mouth once M v-Mins 36-Ocdw-Ptavi No.1-Dha (Pnv-Chalfont) 28-1-300 mg capsule Active CAP PO November 26, 2022 12:00am Start: 11-26-2022 take 1 capsule by mouth once M v-Mins 00-Peka-Qvmyl No.1-Dha (Pnv-Chalfont) 28-1-300 mg capsule Active CAP PO November [...] 2023 12:00am July 08, 2023 11:04am nystatin 537311 unt/ml topical cream (8 sources) Polyene Antifungal [...] unspecified trimester] 01-30-2023 Episodic Comment on above: [id number], FLOR 06/22/23, girl Paige Alberto discussed NIPT [...] Onset: 04-29-2017 Unclassified (1 source) 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 / [...] 02-06-2017 Episodic Unclassified (1 source) 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; Translations: [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 [address], [address] [place] [address] OFFICE VISIT Date of Service: 11/29/24 MR#: [id number] Acct: [id number] Name: KARLA DEGROOT Rep #: [id number] : 1995 Provider: MARISOL Durham ams Age/Sex: 29/F [place] [facility] [place]: Signed Intake Vital Signs 11/02/24 08:11 11/29/24 09:48 Height 5 ft 6 in 5 ft 6 in Weight: 219 lb 5 oz BMI 35.4 BP 113/75 Intake Visit Reasons: 24wk ob *move 01/11 appt Chief Complaint: 24wk OB Debate Director Required: No Is patient in pain?: No Allergies No Known Allergies Allergy (Verified 11/29/24 09:47) Medications ???Medication ???Instructions ???Recorded ???Confirmed ???Type multivit-min no.71-iron fum 28 1 cap PO DAILY 11/26/22 11/29/24 History mg-folate no.1 1 mg-dha 300 mg capsule (PNV-Chalfont) Last Menstrual Period: 06/02/24 : No Have you fallen in the past year?: No PFSH PFSH Medical History Anemia in preg-unspec Chorioamnionitis, delivered, current hospitalization hemorrhage delivery delivered False labor Abnormal ultrasound Congenital abnormality ureter Surgical History Previous section [place] teeth removed Family History Grandmother Breast cancer, Onset Age: 70 Paternal Thyroid disorder Paternal- hyperthyroid Aunt Cancer, Onset Age: 53 Maternal - thyroid Social History adopted: No household members: spouse housing: house number of children: 1 current occupational status: employed current occupation: [employer] current occupational exposures/hazards: No pets and animals: [...] frequency: does not exercise duration: 45-60 minutes/day tez/yarsani: None seatbelt use: always do you feel safe at home: Yes 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 Date Name GA/Weeks Outcome Route Bth Weight Infant Gen Labor Lgth Anesthesia Del Locatn Provider FOB 06/21/23 Paige 39 live - full term 6#12 Female [facility] Dr Ramya Hidalgo Delivery Date: 06/21/23 [...] lb 9.6 (more content not included)... Normal [facility] Absolute lymphocyte countOrd ered By: Liane Archer on 11-02-2024 Lymphocytes Auto (Unsp spec) [#/Vol] 1.92 10*3/uL 0.83-4.51 [facility] Absolute neutrophil countOrd ered By: Liane Archer on 11-02-2024 Neutrophils (Bld) [#/Vol] 5.5 10*3/uL 2.0-7.7 [facility] Anion gap in Serum or Plasma Ordered By: Liane Archer on 11-02-2024 Anion gap [Moles/Vol] 12 mmol/L 5-15 [facility] Automated lymphocyte count a s percentage of total leukocytesOrdered By: Liane Archer on 11-02-2024 Lymphocytes/100 WBC Auto (Unsp spec) 23.9 % 19-41 [facility] BUN/creatinine ratioOrdered By: Liane Archer on 11-02-2024 Urea nitrogen/Creatinine [Mass ratio] 11.8 mg/mg 10-20 [facility] Basophil percentageOrdered B y: Liane Archer on 11-02-2024 Basophils/100 WBC (Bld) 0.5 % 0-1 [facility] Bilirubin, totalOrdered By: Liane Archer on 11-02-2024 Bilirubin [Mass/Vol] 0.21 mg/dL 0.00-1.30 [facility] CBC W/Diff, Automatedon 10-18 Absolute Lymph 1.92 X10 3/uL Normal 0.83-4.51 [facility] Comment on above: Performed By: #### L 501.0900, L500.4050, L100.0100 ####[facility] [address] [place], [address] Absolute Neut 5.5 X10 3/uL Normal 2.0-7.7 [facility] Comment on above: Performed By: #### L 501.0900, L500.4050, L100.0100 ####[facility] [address] [place], [address] Basophils/100 WBC (Bld) 0.5 % Normal 0-1 [facility] Comment on above: Performed By: #### L 501.0900, L500.4050, L100.0100 ####[facility] [address] [place], [address] Eosinophils/100 WBC (Bld) 1.4 % Normal 0-5 [facility] Comment on above: Performed By: #### L 501.0900, L500.4050, L100.0100 ####[facility] [address] [place], [address] Erythrocyte distribution width (RBC) [Ratio] 13.2 % Normal 11.6-14.6 [facility] Comment on above: Performed By: #### L 501.0900, L500.4050, L100.0100 ####[facility] [address] [place], [address] Hematocrit (Bld) [Volume fraction] 31.8 % Low 37-47 [facility] Comment on above: Performed By: #### L 501.0900, L500.4050, L100.0100 ####[facility] [address] [place], [address] Hemoglobin (Bld) [Mass/Vol] 10.9 g/dL Low 12.0-15.0 [facility] Comment on above: Performed By: #### L 501.0900, L500.4050, L100.0100 ####[facility] [address] [place], [address] IG% 0.500 Normal 0.0-0.9 [facility] Comment on above: Result Comment: IG% - Immature Granulocytes (promyelocytes, myelocytes and metamyelocytes) > 1% indicates that a LEFT SHIFT is Present. Performed By: #### L 501.0900, L500.4050, L100.0100 ####[facility] [address] [place], [address] Lymphocytes/100 WBC (Bld) 23.9 % Normal 19-41 [facility] Comment on above: Performed By: #### L 501.0900, L500.4050, L100.0100 ####[facility] [address] [place], [address] MCH (RBC) [Entitic mass] 30.3 pg Normal 27.0-32.0 [facility] Comment on above: Performed By: #### L 501.0900, L500.4050, L100.0100 ####[facility] [address] [place], [address] MCHC (RBC) [Mass/Vol] 34.3 g/dL Normal 32-36 [facility] Comment on above: Performed By: #### L 501.0900, L500.4050, L100.0100 ####[facility] [address] [place], [address] MCV (RBC) [Entitic vol] 88.3 fL Normal 81-99 [facility] Comment on above: Performed By: #### L 501.0900, L500.4050, L100.0100 ####[facility] [address] [place], [address] Monocytes/100 WBC (Bld) 5.5 % Normal 0-10 [facility] Comment on above: Performed By: #### L 501.0900, L500.4050, L100.0100 ####[facility] [address] [place], [address] Neutrophils/100 WBC (Bld) 68.2 % Normal 47-70 [facility] Comment on above: Performed By: #### L 501.0900, L500.4050, L100.0100 ####[facility] [address] [place], [address] Nucleated RBC (Bld) [#/Vol] 0 10*3/uL Normal 0-5 [facility] Comment on above: Performed By: #### L 501.0900, L500.4050, L100.0100 ####[facility] [address] [place], [address] Platelet mean volume (Bld) [Entitic vol] 10.5 fL Normal 6.2-12.0 [facility] Comment on above: Performed By: #### L 501.0900, L500.4050, L100.0100 ####[facility] [address] [place], [address] Platelets (Bld) [#/Vol] 265 10*3/uL Normal 150-450 [facility] Comment on above: Performed By: #### L 501.0900, L500.4050, L100.0100 ####[facility] [address] [place], [address] RBC (Bld) [#/Vol] 3.60 10*6/uL Low 4.2-5.4 [facility] Comment on above: Performed By: #### L 501.0900, L500.4050, L100.0100 ####[facility] [address] [place], [address] RDW SD 42.5 fl Normal 35.1-43.9 [facility] Comment on above: Performed By: #### L 501.0900, L500.4050, L100.0100 ####[facility] [address] [place], [address] WBC (Bld) [#/Vol] 8.0 10*3/uL Normal 4.4-11.0 [facility] Comment on above: Performed By: #### L 501.0900, L500.4050, L100.0100 ####[facility] [address] [place], [address] Carbon dioxide, total [Moles /volume] in Central venous bloodOrdered By: Liane Archer on 11-02-2024 CO2 [Moles/Vol] 18.6 mmol/L Low 21.0-32.0 [facility] Chloride assayOrdered By: Charlie Archer on 11-02-2024 Chloride [Moles/Vol] 106 mmol/L 98-108 [facility] Comprehensive Metabolic Prof ilon 11-02-2024 Albumin [Mass/Vol] 3.8 g/dL Normal 3.5-5.0 [facility] Comment on above: Performed By: #### L 501.0900, L500.4050, L100.0100 ####[facility] [address] [place], [address] Albumin/Globulin [Mass ratio] 1.4 {ratio} Normal 0.9-2.4 [facility] Comment on above: Performed By: #### L 501.0900, L500.4050, L100.0100 ####[facility] [address] [place], [address] ALK PHOS 41 U/L Normal 35-104 [facility] Comment on above: Performed By: #### L 501.0900, L500.4050, L100.0100 ####[facility] [address] [place], [address] ALT [Catalytic activity/Vol] 9 U/L Normal <=34 [facility] Comment on above: Performed By: #### L 501.0900, L500.4050, L100.0100 ####[facility] [address] [place], [address] AST [Catalytic activity/Vol] 13 U/L Normal <=31 [facility] Comment on above: Performed By: #### L 501.0900, L500.4050, L100.0100 ####[facility] [address] [place], [address] Bilirubin [Mass/Vol] 0.21 mg/dL Normal 0.00-1.30 [facility] Comment on above: Performed By: #### L 501.0900, L500.4050, L100.0100 ####[facility] [address] [place], [address] BUN/CRE 11.8 RATIO Normal 10-20 [facility] Comment on above: Performed By: #### L 501.0900, L500.4050, L100.0100 ####[facility] [address] [place], [address] Calcium [Mass/Vol] 9.1 mg/dL Normal 7.6-11.0 [facility] Comment on above: Performed By: #### L 501.0900, L500.4050, L100.0100 ####[facility] [address] [place], [address] Chloride [Moles/Vol] 106 mmol/L Normal 98-108 [facility] Comment on above: Performed By: #### L 501.0900, L500.4050, L100.0100 ####[facility] [address] [place], [address] CO2 [Moles/Vol] 18.6 mmol/L Low 21.0-32.0 [facility] Comment on above: Performed By: #### L 501.0900, L500.4050, L100.0100 ####[facility] [address] [place], [address] Creatinine [Mass/Vol] 0.49 mg/dL Low 0.70-1.20 [facility] Comment on above: Performed By: #### L 501.0900, L500.4050, L100.0100 ####[facility] [address] [place], [address] GAP 12 Normal 5-15 [facility] Comment on above: Performed By: #### L 501.0900, L500.4050, L100.0100 ####[facility] [address] [place], [address] GFR/1.73 sq M.predicted among non-blacks MDRD (S/P/Bld) [Vol rate/Area] 131 mL/min/{1.73_m2} Normal >60 [facility] Comment on above: Result Comment: mL/m in/1.73m2 CKD-EPI Creatinine Equation (2020) Performed By: #### L 501.0900, L500.4050, L100.0100 ####[facility] [address] [place], [address] Globulin (S) [Mass/Vol] 2.7 g/dL Normal 2.2-4.2 [facility] Comment on above: Performed By: #### L 501.0900, L500.4050, L100.0100 ####[facility] [address] [place], [address] Glucose [Mass/Vol] 85 mg/dL Normal 70-99 [facility] Comment on above: Performed By: #### L 501.0900, L500.4050, L100.0100 ####[facility] [address] [place], [address] Potassium [Moles/Vol] 3.8 mmol/L Normal 3.3-5.1 [facility] Comment on above: Performed By: #### L 501.0900, L500.4050, L100.0100 ####[facility] [address] [place], [address] Sodium [Moles/Vol] 136 mmol/L Normal 133-145 [facility] Comment on above: Performed By: #### L 501.0900, L500.4050, L100.0100 ####[facility] [address] [place], [address] T PROT 6.5 g/dL Normal 5.9-8.4 [facility] Comment on above: Performed By: #### L 501.0900, L500.4050, L100.0100 ####[facility] [address] [place], [address] Urea nitrogen [Mass/Vol] 6 mg/dL Normal 4-19 [facility] Comment on above: Performed By: #### L 501.0900, L500.4050, L100.0100 ####[facility] [address] [place], [address] Eosinophil percentageOrdered By: Liane Archer on 11-02-2024 Eosinophils/100 WBC (Bld) 1.4 % 0-5 [facility] Erythrocyte distribution wid th ratioOrdered By: Liane Archer on 11-02-2024 Erythrocyte distribution width (RBC) [Ratio] 13.2 % 11.6-14.6 [facility] Erythrocyte distribution wid th standard deviationOrdered By: Liane Archer on 11-02-2024 Erythrocyte distribution width (RBC) [Ratio] 42.5 fl 35.1-43.9 [facility] Glomerular filtration rate ( GFR) estimation/1.73 sq m using serum, plasma, or whole bOrdered By: Liane Archer on 11-02-2024 GFR/1.73 sq M.predicted among non-blacks MDRD (S/P/Bld) [Vol rate/Area] 131 mL/min/{1.73_m2} >60 [facility] Comment on above: mL/min/1.73m2 CKD-EP I Creatinine Equation (2020) Hematocrit Auto (Bld) [Volum e fraction]Ordered By: Liane Archer on 11-02-2024 Hematocrit (Bld) [Volume fraction] 31.8 % Low 37-47 [facility] Hemoglobin measurementOrdere d By: Liane Archer on 11-02-2024 Hemoglobin (Bld) [Mass/Vol] 10.9 g/dL Low 12.0-15.0 [facility] Immature granulocytes/100 WB C Auto (Bld)Ordered By: Liane Archer on 11-02-2024 Immature granulocytes/100 WBC (Bld) 0.500 % 0.0-0.9 [facility] Comment on above: IG% - Immature Granu locytes (promyelocytes, myelocytes and metamyelocytes) > 1% indicates that a LEFT SHIFT is Present. Laboratory - Chemistry and C hemistry - challengeOrdered By: Liane Archer on 11-02-2024 AST [Catalytic activity/Vol] 13 U/L <32 [facility] Glucose Ql (U) Negative [facility] Laboratory - UrinalysisOrder ed By: Liane Archer on 11-02-2024 Protein Ql (U) Trace [facility] MCV (mean corpuscular volume ) determinationOrdered By: Liane Archer on 11-02-2024 MCV (RBC) [Entitic vol] 88.3 fL 81-99 [facility] Mean corpuscular hemoglobin (MCH) determinationOrdered By: Liane Archer on 11-02-2024 MCH (RBC) [Entitic mass] 30.3 pg 27.0-32.0 [facility] Mean corpuscular hemoglobin concentration (MCHC) determinationOrdered By: Liane Archer on 11-02-2024 MCHC (RBC) [Mass/Vol] 34.3 g/dL 32-36 [facility] Mean platelet volume determi nationOrdered By: Liane Archer on 11-02-2024 Platelet mean volume (Bld) [Entitic vol] 10.5 fL 6.2-12.0 [facility] Monocyte percentageOrdered B y: Liane Archer on 11-02-2024 Monocytes/100 WBC (Bld) 5.5 % 0-10 [facility] Neutrophil percentageOrdered By: Liane Archer on 11-02-2024 Neutrophils/100 WBC (Bld) 68.2 % 47-70 [facility] Nucleated red blood cell per centageOrdered By: Liane Archer on 11-02-2024 Nucleated RBC/100 WBC (Bld) [Ratio] 0 % 0-5 [facility] Office Visit Reporton 11-02-2024 [facility] Office Visit Report [facility] [address], [address] [place] [address] OFFICE VISIT Date of Service: 11/02/24 MR#: [id number] Acct: [id number] Name: KARLA DEGROOT Rep #: [id number] : 1995 Provider: JESSICA ortega Age/Sex: 29/F [place] [facility] [place] Status: Signed Intake Vital Signs 08/05/24 10:38 10/05/24 09:36 11/02/24 08:07 11/02/24 08:11 Height 5 ft 6 in 5 ft 6 in 5 ft 6 in 5 ft 6 in Weight: 220 lb BMI 35.5 BP 119/74 Intake Visit Reasons: 20wk ob Chief Complaint: 20 Week OB Debate Director Required: No Is patient in pain?: No Allergies No Known Allergies Allergy (Verified 11/02/24 08:06) Medications ???Medication ???Instructions ???Recorded ???Confirmed ???Type multivit-min no.71-iron fum 28 1 cap PO DAILY 11/26/22 11/02/24 History mg-folate no.1 1 mg-dha 300 mg capsule (PNV-Chalfont) Last Menstrual Period: 06/02/24 Zika: Zika virus screening: Negative : No PFSH PFSH Medical History Anemia in preg-unspec Chorioamnionitis, delivered, current hospitalization hemorrhage delivery delivered False labor Abnormal ultrasound Congenital abnormality ureter Surgical History Previous section [place] teeth removed Family History Grandmother Breast cancer, Onset Age: 70 Paternal Thyroid disorder Paternal- hyperthyroid Aunt Cancer, Onset Age: 53 Maternal - thyroid Social History adopted: No household members: spouse housing: house number of children: 1 current occupational status: employed current occupation: [employer] current occupational exposures/hazards: No pets and animals: [...] frequency: does not exercise duration: 45-60 minutes/day tez/yarsani: None seatbelt use: always do you feel safe at home: Yes 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 Date Name GA/Weeks Outcome Route Bth Weight Gen Labor Lgth Anesthesia Del Locatn Provider FOB 06/21/23 Paige 39 live - full term 6#12 Female [facility] Dr Ramya Hidalgo Delivery Date: 06/21/23 [...] -???-???-???-???-???- ???-??? (more content not included)... Normal [facility] Platelet countOrdered By: Charlie Archer on 11-02-2024 Platelets (Bld) [#/Vol] 265 10*3/uL 150-450 [facility] Potassium measurement (mass/ volume)Ordered By: Liane Archer on 11-02-2024 Potassium (Unsp spec) [Mass/Vol] 3.8 mmol/L 3.3-5.1 [facility] Protein+Creatinine Ratio,Uri neon 11-02-2024 PROT:CRE RATIO 186 mg/g CRE Normal 0-200 [facility] Comment on above: Performed By: #### L 501.0900, L500.4050, L100.0100 ####[facility] [address] [place], [address] Protein (U) [Mass/Vol] 29.2 mg/dL High 0.0-12.0 [facility] Comment on above: Performed By: #### L 501.0900, L500.4050, L100.0100 ####[facility] [address] [place], [address] UR CREAT 157.00 mg/dL Normal 28.00-217.00 [facility] Comment on above: Performed By: #### L 501.0900, L500.4050, L100.0100 ####[facility] [address] [place], [address] RBC Auto (Bld) [#/Vol]Ordere d By: Liane Archer on 11-02-2024 RBC (Bld) [#/Vol] 3.60 10*6/uL Low 4.2-5.4 [facility] Random urine creatinine elie urement (mass/volume)Ordered By: Liane Archer on 11-02-2024 Creatinine Unsp time (U) [Mass/Vol] 157.00 mg/dL 28.00-217.00 [facility] Serum creatinine measurement (mass/volume)Ordered By: Liane Archer on 11-02-2024 Creatinine [Mass/Vol] 0.49 mg/dL Low 0.70-1.20 [facility] Serum globulin measurementOr dered By: Liane Archer on 11-02-2024 Globulin (S) [Mass/Vol] 2.7 g/dL 2.2-4.2 [facility] Serum glucose measurement (m ass/volume)Ordered By: Liane Archer on 11-02-2024 Glucose [Mass/Vol] 85 mg/dL 70-99 [facility] [facility] Serum or plasma alanine vargas otransferase (ALT) measurementOrdered By: Liane Archer on 11-02-2024 ALT [Catalytic activity/Vol] 9 U/L <35 [facility] Serum or plasma albumin elie urement (mass/volume)Ordered By: Liane Archer on 11-02-2024 Albumin [Mass/Vol] 3.8 g/dL 3.5-5.0 [facility] Serum or plasma albumin/glob ulin mass ratioOrdered By: Liane Archer on 11-02-2024 Albumin/Globulin [Mass ratio] 1.4 {ratio} 0.9-2.4 [facility] Serum or plasma alkaline jose sphatase measurementOrdered By: Liane Archer on 11-02-2024 ALP [Catalytic activity/Vol] 41 U/L 35-104 [facility] Serum or plasma calcium elie urement (mass/volume)Ordered By: Liane Archer on 11-02-2024 Calcium [Mass/Vol] 9.1 mg/dL 7.6-11.0 [facility] Serum or plasma urea nitroge n measurement (mass/volume)Ordered By: Liane Archer on 11-02-2024 Urea nitrogen [Mass/Vol] 6 mg/dL 4-19 [facility] Sodium levelOrdered By: Chan emily Gianni on 11-02-2024 Sodium [Moles/Vol] 136 mmol/L 133-145 [facility] Total proteinOrdered By: Jonel velazquez Gianni on 11-02-2024 Protein [Mass/Vol] 6.5 g/dL 5.9-8.4 [facility] Urine protein measurement (m ass/volume)Ordered By: Liane Archer on 11-02-2024 Protein (U) [Mass/Vol] 29.2 mg/dL High 0.0-12.0 [facility] Urine protein/creatinine mas s ratioOrdered By: Liane Archer on 11-02-2024 Protein/Creatinine (U) [Mass ratio] 186 mg/g CRE 0-200 [facility] White blood cell (WBC) count Ordered By: Liane Archer on 11-02-2024 WBC (Bld) [#/Vol] 8.0 10*3/uL 4.4-11.0 [facility] Laboratory - Chemistry and C hemistry - challengeOrdered By: Latoya Newman on 10-05-2024 Glucose Ql (U) Negative [facility] Laboratory - UrinalysisOrder ed By: Latoya Newman on 10-05-2024 Protein Ql (U) Negative [facility] Visit Reporton 10-05-2024 [facility] Visit Report [facility] [address], [address] [place] [address] OFFICE VISIT Date of Service: 10/05/24 MR#: [id number] Acct: [id number] Name: KARLA DEGROOT Rep #: [id number] : 1995 Provider: Dr. Latoya Rogers DO Age/Sex: 28/F [place] [facility] [place]: Signed Intake Vital Signs 08/05/24 10:38 09/06/24 08:29 10/05/24 09:36 10/05/24 09:56 Height 5 ft 6 in 5 ft 6 in 5 ft 6 in Weight: 220 lb 9.6 oz BP 134/76 H Intake Visit Reasons: 15wk ob Debate Director Required: No Is patient in pain?: No Allergies No Known Allergies Allergy (Verified 10/05/24 09:36) Medications ???Medication ???Instructions ???Recorded ???Confirmed ???Type multivit-min no.71-iron fum 28 1 cap PO DAILY 11/26/22 10/05/24 History mg-folate no.1 1 mg-dha 300 mg capsule (PNV-[place]) Last Menstrual Period: 06/02/24 Zika: Zika virus screening: Negative : No PFSH PFSH Medical History Anemia in preg-unspec Chorioamnionitis, delivered, current hospitalization hemorrhage delivery delivered False labor Abnormal ultrasound Congenital abnormality ureter Surgical History Previous section [place] teeth removed Family History Grandmother Breast cancer, Onset Age: 70 Paternal Thyroid disorder Paternal- hyperthyroid Aunt Cancer, Onset Age: 53 Maternal - thyroid Social History adopted: No household members: spouse housing: house number of children: 1 current occupational status: employed current occupation: [employer] current occupational exposures/hazards: No pets and animals: [...] frequency: does not exercise duration: 45-60 minutes/day tez/yarsani: None seatbelt use: always do you feel safe at home: Yes 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 Date Name GA/Weeks Outcome Route Bth Weight Gen Labor Lgth Anesthesia Del Locatn Provider FOB 06/21/23 Paige 39 live - full term 6#12 Female [facility] Dr Ramya Hidalgo Delivery Date: 06/21/23 [...] lb 9 (more content not included)... Normal [facility] Absolute lymphocyte countOrd ered By: Kavitha Boyer on 09-06-2024 Lymphocytes Auto (Unsp spec) [#/Vol] 2.16 10*3/uL 0.83-4.51 [facility] Absolute neutrophil countOrd ered By: Kavitha Boyer on 09-06-2024 Neutrophils (Bld) [#/Vol] 5.3 10*3/uL 2.0-7.7 [facility] Automated lymphocyte count a s percentage of total leukocytesOrdered By: Kavitha Merlin on 09-06-2024 Lymphocytes/100 WBC Auto (Unsp spec) 27.1 % 19-41 [facility] Basophil percentageOrdered B y: Kavitha Merlin on 09-06-2024 Basophils/100 WBC (Bld) 0.4 % 0-1 [facility] CBC W/Diff, Automatedon 08-18 Absolute Lymph 2.16 X10 3/uL Normal 0.83-4.51 [facility] Comment on above: Performed By: #### L 3890.6006, L501.9985, L509.8002, L3890.6102, BTS, L100.0100, L509.4006, L3890.6301 #### [facility] Laboratory [address] [place], [address] Absolute Neut 5.3 X10 3/uL Normal 2.0-7.7 [facility] Comment on above: Performed By: #### L 3890.6006, L501.9985, L509.8002, L3890.6102, BTS, L100.0100, L509.4006, L3890.6301 #### [facility] [address] [place], [address] Basophils/100 WBC (Bld) 0.4 % Normal 0-1 [facility] Comment on above: Performed By: #### L 3890.6006, L501.9985, L509.8002, L3890.6102, BTS, L100.0100, L509.4006, L3890.6301 #### [facility] [address] [place], [address] Eosinophils/100 WBC (Bld) 1.0 % Normal 0-5 [facility] Comment on above: Performed By: #### L 3890.6006, L501.9985, L509.8002, L3890.6102, BTS, L100.0100, L509.4006, L3890.6301 #### [facility] [address] [place], [address] Erythrocyte distribution width (RBC) [Ratio] 12.9 % Normal 11.6-14.6 [facility] Comment on above: Performed By: #### L 3890.6006, L501.9985, L509.8002, L3890.6102, BTS, L100.0100, L509.4006, L3890.6301 #### [facility] [address] [place], [address] Hematocrit (Bld) [Volume fraction] 37.0 % Normal 37-47 [facility] Comment on above: Performed By: #### L 3890.6006, L501.9985, L509.8002, L3890.6102, BTS, L100.0100, L509.4006, L3890.6301 #### [facility] [address] [place], [address] Hemoglobin (Bld) [Mass/Vol] 12.1 g/dL Normal 12.0-15.0 [facility] Comment on above: Performed By: #### L 3890.6006, L501.9985, L509.8002, L3890.6102, BTS, L100.0100, L509.4006, L3890.6301 #### [facility] [address] [place], [address] IG% 0.400 Normal 0.0-0.9 [facility] Comment on above: Result Comment: IG% - Immature Granulocytes (promyelocytes, myelocytes and metamyelocytes) > 1% indicates that a LEFT SHIFT is Present. Performed By: #### L 3890.6006, L501.9985, L509.8002, L3890.6102, BTS, L100.0100, L509.4006, L3890.6301 #### [facility] [address] [place], [address] Lymphocytes/100 WBC (Bld) 27.1 % Normal 19-41 [facility] Comment on above: Performed By: #### L 3890.6006, L501.9985, L509.8002, L3890.6102, BTS, L100.0100, L509.4006, L3890.6301 #### [facility] [address] [place], [address] MCH (RBC) [Entitic mass] 28.9 pg Normal 27.0-32.0 [facility] Comment on above: Performed By: #### L 3890.6006, L501.9985, L509.8002, L3890.6102, BTS, L100.0100, L509.4006, L3890.6301 #### [facility] [address] [place], [address] MCHC (RBC) [Mass/Vol] 32.7 g/dL Normal 32-36 [facility] Comment on above: Performed By: #### L 3890.6006, L501.9985, L509.8002, L3890.6102, BTS, L100.0100, L509.4006, L3890.6301 #### [facility] [address] [place], [address] MCV (RBC) [Entitic vol] 88.3 fL Normal 81-99 [facility] Comment on above: Performed By: #### L 3890.6006, L501.9985, L509.8002, L3890.6102, BTS, L100.0100, L509.4006, L3890.6301 #### [facility] [address] [place], [address] Monocytes/100 WBC (Bld) 4.6 % Normal 0-10 [facility] Comment on above: Performed By: #### L 3890.6006, L501.9985, L509.8002, L3890.6102, BTS, L100.0100, L509.4006, L3890.6301 #### [facility] [address] [place], [address] Neutrophils/100 WBC (Bld) 66.5 % Normal 47-70 [facility] Comment on above: Performed By: #### L 3890.6006, L501.9985, L509.8002, L3890.6102, BTS, L100.0100, L509.4006, L3890.6301 #### [facility] [address] [place], [address] Nucleated RBC (Bld) [#/Vol] 0 10*3/uL Normal 0-5 [facility] Comment on above: Performed By: #### L 3890.6006, L501.9985, L509.8002, L3890.6102, BTS, L100.0100, L509.4006, L3890.6301 #### [facility] [address] [place], [address] Platelet mean volume (Bld) [Entitic vol] 10.2 fL Normal 6.2-12.0 [facility] Comment on above: Performed By: #### L 3890.6006, L501.9985, L509.8002, L3890.6102, BTS, L100.0100, L509.4006, L3890.6301 #### [facility] [address] [place], [address] Platelets (Bld) [#/Vol] 289 10*3/uL Normal 150-450 [facility] Comment on above: Performed By: #### L 3890.6006, L501.9985, L509.8002, L3890.6102, BTS, L100.0100, L509.4006, L3890.6301 #### [facility] [address] [place], [address] RBC (Bld) [#/Vol] 4.19 10*6/uL Low 4.2-5.4 [facility] Comment on above: Performed By: #### L 3890.6006, L501.9985, L509.8002, L3890.6102, BTS, L100.0100, L509.4006, L3890.6301 #### [facility] [address] [place], [address] RDW SD 41.4 fl Normal 35.1-43.9 [facility] Comment on above: Performed By: #### L 3890.6006, L501.9985, L509.8002, L3890.6102, BTS, L100.0100, L509.4006, L3890.6301 #### [facility] [address] [place], [address] WBC (Bld) [#/Vol] 8.0 10*3/uL Normal 4.4-11.0 [facility] Comment on above: Performed By: #### L 3890.6006, L501.9985, L509.8002, L3890.6102, BTS, L100.0100, L509.4006, L3890.6301 #### [facility] [address] [facility] [place], [address] Eosinophil percentageOrdered By: Kavitha Boyer on 09-06-2024 Eosinophils/100 WBC (Bld) 1.0 % 0-5 [facility] Erythrocyte distribution wid th ratioOrdered By: Kavitha Boyer on 09-06-2024 Erythrocyte distribution width (RBC) [Ratio] 12.9 % 11.6-14.6 [facility] Erythrocyte distribution wid th standard deviationOrdered By: Kavitha Boyer on 09-06-2024 Erythrocyte distribution width (RBC) [Ratio] 41.4 fl 35.1-43.9 [facility] HIVon 09-06-2024 HIV Non-Reactive Normal Nonreactive [facility] Comment on above: Result Comment: Non- Reactive Reactive Repeatedly reactive samples must be confirmed according to CDC recommended confirmatory algorithms. The subresults for either HIVAG or AHIV can be used as an aid in the selection of the confirmation algorithm for reactive samples. Send out specimens with Reactive results to [facility] for confirmation. Order the HIV antibody detection and differentiation: lc#[id number] Performed By: #### L 3890.6006, L501.9985, L509.8002, L3890.6102, BTS, L100.0100, L509.4006, L3890.6301 ####[facility] [address] [place], [address] Hematocrit Auto (Bld) [Volum e fraction]Ordered By: Kavitha Boyer on 09-06-2024 Hematocrit (Bld) [Volume fraction] 37.0 % 37-47 [facility] Hemoglobin A1con 09-06-2024 HbA1c (Bld) [Mass fraction] 5.5 % Normal <=5.6 [facility] Comment on above: Result Comment: Norm al < 5.7 % Prediabetic 5.7 - 6.4 % Diabetic >or= 6.5 % Please note range changes. Performed By: #### L 3890.6006, L501.9985, L509.8002, L3890.6102, BTS, L100.0100, L509.4006, L3890.6301 #### [facility] [address] [place], [address] Hemoglobin A1c percentageOrd ered By: Kavitha Boyer on 09-06-2024 HbA1c (Bld) [Mass fraction] 5.5 % <5.7 [facility] Comment on above: Normal < 5.7 % Predi abetic 5.7 - 6.4 % Diabetic >or= 6.5 % Please note range changes. Hemoglobin measurementOrdere d By: Kavitha Boyer on 09-06-2024 Hemoglobin (Bld) [Mass/Vol] 12.1 g/dL 12.0-15.0 [facility] Hepatitis C Antibodyon 09-06 Hepatitis C Ab Non-Reactive Normal Nonreactive [facility] Comment on above: Result Comment: Reac tive: Presumptive evidence of antibodies to HCV. Follow CDC recommendations for supplemental testing. Non-Reactive: Antibodies to HCV were not detected; does not exclude the possibility of exposure to HCV Reactive Results are presumptive evidence of antibodies to HCV. Follow CDC recommendations for supplemental testing. Order confirmation testing: HCV Quant by PCR testing - HCVPCR #[id number] Non Reactive: < 0.8 Equivocal: >/= 0.8 to < 1.0 Reactive: >/= 1.[address] [facility] requires that a reactive/equivocal HCV antibody result be sent out for confirmation. HCV Quant by PCR testing. Performed By: #### L 3890.6006, L501.9985, L509.8002, L3890.6102, BTS, L100.0100, L509.4006, L3890.6301 ####[facility] [id number] [place], [place], [id number] Immature granulocytes/100 WB C Auto (Bld)Ordered By: Kavitha Boyer on 09-06-2024 Immature granulocytes/100 WBC (Bld) 0.400 % 0.0-0.9 [facility] Comment on above: IG% - Immature Granu locytes (promyelocytes, myelocytes and metamyelocytes) > 1% indicates that a LEFT SHIFT is Present. L3890.6102on 09-06-2024 HEP B Surf Ag Non-Reactive Normal Nonreactive [facility] Comment on above: Result Comment: Reac tive: Presumptive evidence of HBV. Repeatedly reactive samples must be confirmed using a neutralization test ([employer] HBsAg Confirmatory Test) Non-Reactive: HBsAg not detected; does not exclude the possibility of exposure to HBV Performed By: #### L 3890.6006, L501.9985, L509.8002, L3890.6102, BTS, L100.0100, L509.4006, L3890.6301 ####[facility] [address] [place], [place], [address] L509.4006on 09-06-2024 Rubella IgG REAC Normal Nonreactive [facility] Comment on above: Result Comment: Anti body Result: Interpretation Non-Reactive: Non-Immune Reactive: Immune The following results were obtained with the [employer] Rubella IgG assay. Results from assays of other manufacturers cannot be used interchangeably. Performed By: #### L 3890.6006, L501.9985, L509.8002, L3890.6102, BTS, L100.0100, L509.4006, L3890.6301 #### [facility] [place], [address] Laboratory - Microbiology an d Antimicrobial susceptibilityOrdered By: Kavitha Boyer on 09-06-2024 HBV surface Ag Ql (S) Non-Reactive Nonreactive [facility] Comment on above: Reactive: Presumptiv e evidence of HBV. Repeatedly reactive samples must be confirmed using a neutralization test ([employer] HBsAg Confirmatory Test)Non-Reactive: HBsAg not detected; does not exclude the possibility of exposure to HBV MCV (mean corpuscular volume ) determinationOrdered By: Kavitha Boyer on 09-06-2024 MCV (RBC) [Entitic vol] 88.3 fL 81-99 [facility] Mean corpuscular hemoglobin (MCH) determinationOrdered By: Kavitha Boyer on 09-06-2024 MCH (RBC) [Entitic mass] 28.9 pg 27.0-32.0 [facility] Mean corpuscular hemoglobin concentration (MCHC) determinationOrdered By: Kavitha Boyer on 09-06-2024 MCHC (RBC) [Mass/Vol] 32.7 g/dL 32-36 [facility] Mean platelet volume determi nationOrdered By: Kavitha Boyer on 09-06-2024 Platelet mean volume (Bld) [Entitic vol] 10.2 fL 6.2-12.0 [facility] Monocyte percentageOrdered B y: Kavitha Boyer on 09-06-2024 Monocytes/100 WBC (Bld) 4.6 % 0-10 [facility] Neutrophil percentageOrdered By: Kavitha Boyer on 09-06-2024 Neutrophils/100 WBC (Bld) 66.5 % 47-70 [facility] No Panel InformationOrdered By: Kavitha Boyer on 09-06-2024 HIV (1&2) Antibody Non-Reactive Nonreactive [facility] Comment on above: Non-ReactiveReactive Repeatedly reactive samples must be confirmed according to CDC recommended confirmatory algorithms. The subresults for either HIVAG or AHIV can be used as an aid in the selection of the confirmation algorithm for reactive samples.Send out specimens with Reactive results to [facility] for confirmation.Order the HIV antibody detection and differentiation: #[id number] Nucleated red blood cell per centageOrdered By: Kavitha Boyer on 09-06-2024 Nucleated RBC/100 WBC (Bld) [Ratio] 0 % 0-5 [facility] Office Visit Reporton 09-06-2024 [facility] Office Visit Report [facility] [address], [address] [place] [address] OFFICE VISIT Date of Service: 09/06/24 MR#: [id number] Acct: [id number] Name: KARLA DEGROOT Rep #: [id number] : 1995 Provider: Dr. Mickie smith MD Age/Sex: 28/F [place] [facility] [place]: Signed Intake Vital Signs 08/13/23 14:05 08/05/24 10:38 09/06/24 08:29 Height 5 ft 6 in 5 ft 6 in 5 ft 6 in Weight: 226 lb 222 lb 4 oz BMI 36.4 35.9 BP 123/73 H 139/84 H Intake Visit Reasons: 11wk OB Debate Director Required: No Is patient in pain?: No Allergies No Known Allergies Allergy (Verified 09/06/24 08:37) Medications ???Medication ???Instructions ???Recorded ???Confirmed ???Type multivit-min no.71-iron fum 28 1 cap PO DAILY 11/26/22 09/06/24 History mg-folate no.1 1 mg-dha 300 mg capsule (PNV-[place]) Last Menstrual Period: 06/02/24 Zika: Zika virus screening: Negative : No PFSH PFSH Medical History Anemia in preg-unspec Chorioamnionitis, delivered, current hospitalization hemorrhage delivery delivered False labor Abnormal ultrasound Congenital abnormality ureter Surgical History Previous section [place] teeth removed Family History Grandmother Breast cancer, Onset Age: 70 Paternal Thyroid disorder Paternal- hyperthyroid Aunt Cancer, Onset Age: 53 Maternal - thyroid Social History adopted: No household members: spouse housing: house number of children: 1 current occupational status: employed current occupation: [employer] current occupational exposures/hazards: No pets and animals: [...] frequency: does not exercise duration: 45-60 minutes/day tez/yarsani: None seatbelt use: always do you feel safe at home: Yes 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 Date Name GA/Weeks Outcome Route Bth Weight Infant Gen Labor Lgth Anesthesia Del Locatn Provider FOB 06/21/23 Paige 39 live - full term 6#12 Female [facility] Dr Ramya Hidalgo Delivery Date: 06/21/23 Last Updated by: Yudelka Vance Failed vacuum/chorio. PP hemorrhage, anemia, maternal fever HPI 11wk OB Details: KARLA DEGOROT is a 28 year old who presents [...] , Alcoh (more content not included)... Normal [facility] Platelet countOrdered By: Andre Boyer on 09-06-2024 Platelets (Bld) [#/Vol] 289 10*3/uL 150-450 [facility] RBC Auto (Bld) [#/Vol]Ordere d By: Kavitha Boyer on 09-06-2024 RBC (Bld) [#/Vol] 4.19 10*6/uL Low 4.2-5.4 [facility] Syphilis Antibodieson 2024 Syphilis Abs Non-Reactive Normal Nonreactive [facility] Comment on above: Performed By: #### L 3890.6006, L501.9985, L509.8002, L3890.6102, BTS, L100.0100, L509.4006, L3890.6301 #### [facility] [address] [place], [place], [id number] Type AND Screenon 09-06-2024 Ab SCREEN GEL Negative Normal [facility] Comment on above: Order Comment: PN Performed By: #### L 3890.6006, L501.9985, L509.8002, L3890.6102, BTS, L100.0100, L509.4006, L3890.6301 #### [facility] [address] [place], [place], [address] White blood cell (WBC) count Ordered By: Kavitha Boyer on 09-06-2024 WBC (Bld) [#/Vol] 8.0 10*3/uL 4.4-11.0 [facility] Chlamydia/GC TONG aptimaon CHLAMY,NUC ACID Negative Normal Negative [facility] Comment on above: Performed By: #### L 7000.1800, M100.2200 #### [facility] [address] [place], [address] GC BY NUC ACID Negative Normal Negative [facility] Comment on above: Result Comment: Perf ormed at: =G - [facility] [address] [id number] Leasing Representative: Maggi Malave MD, Phone: [phone] Performed By: #### L 7000.1800, M100.2200 #### [facility] [address] [place], [address] Urine Cultureon 08-07-2024 [facility] Mixed Gram Positive Organisms [place] Count 25,000-50,000 [facility] Mixed contaminants. Submit a new specimen if indicated. Normal [facility] Comment on above: Performed By: #### L 7000.1800, M100.2200 #### [facility] [address] [place], [address] Chlamydia trachomatis rRNA d etection by probe and target amplification methodOrdered By: Kavitha Boyer on 08-05-2024 C. trachomatis rRNA TONG+probe Ql (Unsp spec) Negative Negative [facility] Neisseria gonorrhoeae nuclei c acid detection by amplified probe techniqueOrdered By: Kavitha Boyer on 08-05-2024 N. gonorrhoeae DNA TONG+probe Ql (Unsp spec) Negative Negative [facility] Comment on above: Performed at: =G - [facility] [address] [id number] Director: Maggi Malave MD, Phone: [phone] [facility] Office Visit Reporton 08-05-2024 [facility] Office Visit Report [facility] [address], [address] [place] [address] OFFICE VISIT Date of Service: 08/05/24 MR#: [id number] Acct: [id number] Name: KARLA DEGROOT Rep #: [id number] : 1995 Provider: MARISOL Durham ams Age/Sex: 28/F Location[place] [facility] [place] Status: Signed Intake Vital Signs 08/13/23 14:05 08/05/24 10:38 Height 5 ft 6 in 5 ft 6 in Weight: 226 lb BMI 36.4 BP 123/73 H Intake Visit Reasons: *EST* NOB LMP 06/02, FLOR 03/09 Chief Complaint: NOB Debate Director Required: No Is patient in pain?: No Allergies No Known Allergies Allergy (Verified 08/05/24 10:39) Medications ???Medication ???Instructions ???Recorded ???Confirmed ???Type multivit-min no.71-iron fum 28 1 cap PO DAILY 11/26/22 08/13/23 History mg-folate no.1 1 mg-dha 300 mg capsule (PNV-[place]ont) Last Menstrual Period: 06/02/24 Zika: Zika virus screening: Negative : No PFSH PFSH Medical History Anemia in preg-unspec Chorioamnionitis, delivered, current hospitalization hemorrhage delivery delivered False labor Abnormal ultrasound Congenital abnormality ureter Surgical History Previous section [place] teeth removed Family History Grandmother Breast cancer, Onset Age: 70 Paternal Thyroid disorder Paternal- hyperthyroid Aunt Cancer, Onset Age: 53 Maternal - thyroid Social History (Updated 08/05/24 @ 10:39 by Neela Tristan) adopted: No household members: spouse housing: house number of children: 1 financial difficulty paying for basics: somewhat hard service: No current occupational status: employed current occupation: [employer] current occupational exposures/hazards: No pets and animals: [...] frequency: does not exercise duration: 45-60 minutes/day tez/yarsani: None seatbelt use: always do you feel safe at home: Yes 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 Date Name GA/Weeks Outcome Route Bth Weight Gen Labor Lgth Anesthesia Del Locatn Provider FOB 06/21/23 Paige 39 live - full term 6#12 Female [facility] Dr Ramya Hidalgo Delivery Date: 06/21/23 [...] declines NIPT (more content not included)... Normal [facility] Urine cultureOrdered By: Romain Boyer on 08-05-2024 Bacteria identified Cx Nom (U) Positive Abnormal [facility] Absolute lymphocyte countOrd ered By: Trish Beckman on 06-22-2023 Lymphocytes Auto (Unsp spec) [#/Vol] 2.30 10*3/uL 0.83-4.51 [facility] Automated lymphocyte count a s percentage of total leukocytesOrdered By: Trish Beckman on 06-22-2023 Lymphocytes/100 WBC Auto (Unsp spec) 13.2 % 19-41 [facility] Basophil percentageOrdered B y: Trish Beckman on 06-22-2023 Basophils/100 WBC (Bld) 0.3 % 0-1 [facility] Eosinophils/100 WBC (Bld) 1.6 % 0-5 [facility] Hemoglobin (Bld) [Mass/Vol] 9.5 g/dL 12.0-15.0 [facility] Monocytes/100 WBC (Bld) 6.6 % 0-10 [facility] Neutrophils (Bld) [#/Vol] 13.5 10*3/uL 2.0-7.7 [facility] Neutrophils/100 WBC (Bld) 77.4 % 47-70 [facility] WBC (Bld) [#/Vol] 17.4 10*3/uL 4.4-11.0 [facility] Determination of erythrocyte mean corpuscular volume (MCV)Ordered By: Trish Beckman on 06-22-2023 MCV (RBC) [Entitic vol] 88.9 fL 81-99 [facility] Erythrocyte distribution wid th ratioOrdered By: Trish Beckman on 06-22-2023 Erythrocyte distribution width (RBC) [Ratio] 15.0 % 11.6-14.6 [facility] Erythrocyte distribution wid th standard deviationOrdered By: Trish Beckman on 06-22-2023 Erythrocyte distribution width (RBC) [Entitic vol] 48.6 fL 35.1-43.9 [facility] Hematocrit Auto (Bld) [Volum e fraction]Ordered By: Trish Beckman on 06-22-2023 Hematocrit (Bld) [Volume fraction] 30.3 % 37-47 [facility] Immature granulocytes/100 WB C Auto (Bld)Ordered By: Trish Beckman on 06-22-2023 Immature granulocytes/100 WBC (Bld) 0.900 % 0.0-0.9 [facility] Comment on above: IG% - Immature Granu locytes (promyelocytes, myelocytes and metamyelocytes) > 1% indicates that a LEFT SHIFT is Present. Laboratory - Hematology and Cell countsOrdered By: Trish Beckman on 06-22-2023 MCH (RBC) [Entitic mass] 27.9 pg 27.0-32.0 [facility] MCHC (RBC) [Mass/Vol] 31.4 g/dL 32-36 [facility] Nucleated RBC/100 WBC (Bld) [Ratio] 0 % 0-5 [facility] Platelet mean volume (Bld) [Entitic vol] 10.2 fL 6.2-12.0 [facility] Platelets (Bld) [#/Vol] 330 10*3/uL 150-450 [facility] RBC Auto (Bld) [#/Vol]Ordere d By: Trish Beckman on 06-22-2023 RBC (Bld) [#/Vol] 3.41 10*6/uL 4.2-5.4 [facility] Blood manual differential co mment interpretation (narrative result)Ordered By: Latoya Newman on 06-21-2023 Manual differential comment Yo (Bld) [Interp] SCANNED [facility] Comment on above: MONOCYTOSIS NOTED Review by pathologistOrdered By: Latoya Newman on 06-21-2023 Pathologist review Yo (Unsp spec) [Interp] Reviewed [facility] Comment on above: Previous reported re sult: Lana cooper Edited by: ERIC on 06/23/23:1016Neutrophilic leukocytosis.Normocytic anemia.Clinical correlation necessary.Beau Bear M.D. 06/23/23 AMENDED REPORT 06/23/23 1016 PATH REV previously reported as: Lana cooper Serum Treponema species anti body detectionOrdered By: Trish Beckman on 06-21-2023 Treponema sp Ab Ql (S) Non-Reactive [facility] Laboratory - Chemistry and C hemistry - challengeon 06-16-2023 Glucose Ql (U) Negative [facility] Laboratory - Urinalysison Protein Ql (U) Negative [facility] Laboratory - Chemistry and C hemistry - challengeon 06-10-2023 Glucose Ql (U) Negative [facility] Laboratory - Urinalysison Protein Ql (U) Negative [facility] Laboratory - Chemistry and C hemistry - challengeon 06-03-2023 Glucose Ql (U) Negative [facility] Laboratory - Urinalysison Protein Ql (U) Negative [facility] Laboratory - Chemistry and C hemistry - challengeon 05-28-2023 Glucose Ql (U) Negative [facility] Laboratory - Urinalysison Protein Ql (U) Negative [facility] No Panel InformationOrdered By: Latoya Newman on 05-28-2023 Group B Streptococcus Culture Group B Beta Streptococcus is not isolated. [facility] Absolute lymphocyte countOrd ered By: Kavitha Boyer on 05-13-2023 Lymphocytes Auto (Unsp spec) [#/Vol] 1.87 10*3/uL 0.83-4.51 [facility] Automated lymphocyte count a s percentage of total leukocytesOrdered By: Kavitha Boyer on 05-13-2023 Lymphocytes/100 WBC Auto (Unsp spec) 19.3 % 19-41 [facility] Basophil percentageOrdered B y: Kavitha Boyer on 05-13-2023 Basophils/100 WBC (Bld) 0.3 % 0-1 [facility] Eosinophils/100 WBC (Bld) 1.1 % 0-5 [facility] Hemoglobin (Bld) [Mass/Vol] 11.0 g/dL 12.0-15.0 [facility] Monocytes/100 WBC (Bld) 6.2 % 0-10 [facility] Neutrophils (Bld) [#/Vol] 7.0 10*3/uL 2.0-7.7 [facility] Neutrophils/100 WBC (Bld) 72.4 % 47-70 [facility] WBC (Bld) [#/Vol] 9.7 10*3/uL 4.4-11.0 [facility] Determination of erythrocyte mean corpuscular volume (MCV)Ordered By: Kavitha Boyer on 05-13-2023 MCV (RBC) [Entitic vol] 88.0 fL 81-99 [facility] Erythrocyte distribution wid th ratioOrdered By: Kavitha Boyer on 05-13-2023 Erythrocyte distribution width (RBC) [Ratio] 13.3 % 11.6-14.6 [facility] Erythrocyte distribution wid th standard deviationOrdered By: Kavitha Boyer on 05-13-2023 Erythrocyte distribution width (RBC) [Entitic vol] 42.8 fL 35.1-43.9 [facility] Hematocrit Auto (Bld) [Volum e fraction]Ordered By: Kavitha Boyer on 05-13-2023 Hematocrit (Bld) [Volume fraction] 33.8 % 37-47 [facility] Immature granulocytes/100 WB C Auto (Bld)Ordered By: Kavitha Boyer on 05-13-2023 Immature granulocytes/100 WBC (Bld) 0.700 % 0.0-0.9 [facility] Comment on above: IG% - Immature Granu locytes (promyelocytes, myelocytes and metamyelocytes) > 1% indicates that a LEFT SHIFT is Present. Laboratory - Chemistry and C hemistry - challengeon 05-13-2023 Glucose Ql (U) Negative [facility] Laboratory - Hematology and Cell countsOrdered By: Kavitha Boyer on 05-13-2023 MCH (RBC) [Entitic mass] 28.6 pg 27.0-32.0 [facility] MCHC (RBC) [Mass/Vol] 32.5 g/dL 32-36 [facility] Nucleated RBC/100 WBC (Bld) [Ratio] 0 % 0-5 [facility] Platelet mean volume (Bld) [Entitic vol] 9.9 fL 6.2-12.0 [facility] Platelets (Bld) [#/Vol] 339 10*3/uL 150-450 [facility] Laboratory - Urinalysison Protein Ql (U) Negative [facility] RBC Auto (Bld) [#/Vol]Ordere d By: Kavitha Boyer on 05-13-2023 RBC (Bld) [#/Vol] 3.84 10*6/uL 4.2-5.4 [facility] Laboratory - Chemistry and C hemistry - challengeon 04-28-2023 Glucose Ql (U) Negative [facility] Laboratory - Urinalysison Protein Ql (U) Negative [facility] Laboratory - Chemistry and C hemistry - challengeon 04-16-2023 Glucose Ql (U) Negative [facility] Laboratory - Urinalysison Protein Ql (U) Negative [facility] Absolute lymphocyte countOrd ered By: Liane Archer on 03-27-2023 Lymphocytes Auto (Unsp spec) [#/Vol] 1.76 10*3/uL 0.83-4.51 [facility] Automated lymphocyte count a s percentage of total leukocytesOrdered By: Liane Archer on 03-27-2023 Lymphocytes/100 WBC Auto (Unsp spec) 17.2 % 19-41 [facility] Basophil percentageOrdered B y: Liane Archer on 03-27-2023 Basophils/100 WBC (Bld) 0.4 % 0-1 [facility] Eosinophils/100 WBC (Bld) 1.1 % 0-5 [facility] Hemoglobin (Bld) [Mass/Vol] 10.3 g/dL 12.0-15.0 [facility] Monocytes/100 WBC (Bld) 4.1 % 0-10 [facility] Neutrophils (Bld) [#/Vol] 7.8 10*3/uL 2.0-7.7 [facility] Neutrophils/100 WBC (Bld) 76.3 % 47-70 [facility] WBC (Bld) [#/Vol] 10.3 10*3/uL 4.4-11.0 [facility] Determination of erythrocyte mean corpuscular volume (MCV)Ordered By: Liane Archer on 03-27-2023 MCV (RBC) [Entitic vol] 91.4 fL 81-99 [facility] Erythrocyte distribution wid th ratioOrdered By: Liane Archer on 03-27-2023 Erythrocyte distribution width (RBC) [Ratio] 12.8 % 11.6-14.6 [facility] Erythrocyte distribution wid th standard deviationOrdered By: Liane Archer on 03-27-2023 Erythrocyte distribution width (RBC) [Entitic vol] 41.7 fL 35.1-43.9 [facility] Gestational diabetes screen 1-hour screen with 50g oral glucose loadOrdered By: Liane Archer on 03-27-2023 Glucose 1 Hr post 50 g glucose PO [Mass/Vol] 178 mg/dL 70-140 [facility] HIV 1 and HIV-2 antibody ass ay with HIV-1 p24 antigen detectionOrdered By: Liane Archer on 03-27-2023 HIV 1+2 Ab+HIV1 p24 Ag IA Ql Non-Reactive Nonreactive [facility] Hematocrit Auto (Bld) [Volum e fraction]Ordered By: Liane Archer on 03-27-2023 Hematocrit (Bld) [Volume fraction] 32.0 % 37-47 [facility] Immature granulocytes/100 WB C Auto (Bld)Ordered By: Liane Archer on 03-27-2023 Immature granulocytes/100 WBC (Bld) 0.900 % 0.0-0.9 [facility] Comment on above: IG% - Immature Granu locytes (promyelocytes, myelocytes and metamyelocytes) > 1% indicates that a LEFT SHIFT is Present. Laboratory - Chemistry and C hemistry - challengeon 03-27-2023 Glucose Ql (U) Negative [facility] Laboratory - Hematology and Cell countsOrdered By: Liane Archer on 03-27-2023 MCH (RBC) [Entitic mass] 29.4 pg 27.0-32.0 [facility] MCHC (RBC) [Mass/Vol] 32.2 g/dL 32-36 [facility] Nucleated RBC/100 WBC (Bld) [Ratio] 0 % 0-5 [facility] Platelet mean volume (Bld) [Entitic vol] 10.2 fL 6.2-12.0 [facility] Platelets (Bld) [#/Vol] 320 10*3/uL 150-450 [facility] Laboratory - Urinalysison Protein Ql (U) Negative [facility] RBC Auto (Bld) [#/Vol]Ordere d By: Liane Archer on 03-27-2023 RBC (Bld) [#/Vol] 3.50 10*6/uL 4.2-5.4 [facility] Serum Treponema species anti body detectionOrdered By: Liane Archer on 03-27-2023 Treponema sp Ab Ql (S) Non-Reactive [facility] Laboratory - Chemistry and C hemistry - challengeon 02-27-2023 Glucose Ql (U) Negative [facility] Laboratory - Urinalysison Protein Ql (U) Negative [facility] Laboratory - Chemistry and C hemistry - challengeon 01-30-2023 Glucose Ql (U) Negative [facility] Laboratory - Urinalysison Protein Ql (U) Negative [facility] Laboratory - Chemistry and C hemistry - challengeon 12-27-2022 Glucose Ql (U) Negative [facility] Laboratory - Urinalysison Protein Ql (U) Negative [facility] Absolute lymphocyte countOrd ered By: Mickie Murray on 12-12-2022 Lymphocytes Auto (Unsp spec) [#/Vol] 2.50 10*3/uL 0.83-4.51 [facility] Basophil percentageOrdered B y: Mickie Murray on 12-12-2022 Basophils/100 WBC (Bld) 0.4 % 0-1 [facility] Eosinophils/100 WBC (Bld) 0.8 % 0-5 [facility] Neutrophils (Bld) [#/Vol] 8.3 10*3/uL 2.0-7.7 [facility] Neutrophils/100 WBC (Bld) 72.5 % 47-70 [facility] WBC (Bld) [#/Vol] 11.4 10*3/uL 4.4-11.0 [facility] Blood erythrocytes count (nu mber/volume)Ordered By: Mickie Murray on 12-12-2022 RBC (Bld) [#/Vol] 3.99 10*6/uL 4.2-5.4 [facility] Blood hemoglobin measurement (mass/volume)Ordered By: Mickie Murray on 12-12-2022 Hemoglobin (Bld) [Mass/Vol] 11.8 g/dL 12.0-15.0 [facility] Blood lymphocytes/100 leukoc ytesOrdered By: Mickie Murray on 12-12-2022 Lymphocytes/100 WBC (Bld) 22.0 % 19-41 [facility] Blood monocytes/100 leukocyt esOrdered By: Mickie Murray on 12-12-2022 Monocytes/100 WBC (Bld) 3.7 % 0-10 [facility] Blood platelet mean volumeOr dered By: Mickie Murray on 12-12-2022 Platelet mean volume (Bld) [Entitic vol] 9.9 fL 6.2-12.0 [facility] Determination of erythrocyte mean corpuscular volume (MCV)Ordered By: Mickie Murray on 12-12-2022 MCV (RBC) [Entitic vol] 90.5 fL 81-99 [facility] HIV 1 and HIV-2 antibody ass ay with HIV-1 p24 antigen detectionOrdered By: Mickie Murray on 12-12-2022 HIV 1+2 Ab+HIV1 p24 Ag IA Ql Non-Reactive Nonreactive [facility] Hematocrit Auto (Bld) [Volum e fraction]Ordered By: Mickie Murray on 12-12-2022 Hematocrit (Bld) [Volume fraction] 36.1 % 37-47 [facility] Laboratory - Hematology and Cell countsOrdered By: Mickie Murray on 12-12-2022 Erythrocyte distribution width (RBC) [Entitic vol] 40.6 fL 35.1-43.9 [facility] Erythrocyte distribution width (RBC) [Ratio] 12.4 % 11.6-14.6 [facility] Immature granulocytes/100 WBC (Bld) 0.600 % 0.0-0.9 [facility] Comment on above: IG% - Immature Granu locytes (promyelocytes, myelocytes and metamyelocytes) > 1% indicates that a LEFT SHIFT is Present. MCH (RBC) [Entitic mass] 29.6 pg 27.0-32.0 [facility] Nucleated RBC/100 WBC (Bld) [Ratio] 0 % 0-5 [facility] MCHC Auto (RBC) [Mass/Vol]Or dered By: Mickie Murray on 12-12-2022 MCHC (RBC) [Mass/Vol] 32.7 g/dL 32-36 [facility] No Panel InformationOrdered By: Mickie Murray on 12-12-2022 Hepatitis B Surface Antigen Non-Reactive Nonreactive [facility] Hepatitis C Antibody Non-Reactive Nonreactive [facility] Comment on above: Non Reactive: < 0.8 Equivocal: >/= 0.8 to < 1.0 Reactive: >/= 1.0The CDC recommends that a reactive/equivocal HCV antibody result be followed up by the HCV Nucleic Acid Amplificationtest (720635) Rubella IgG Antibody Reactive Nonreactive [facility] Comment on above: Antibody Results Int erpretation of Immune Status Non Reactive Presumed Non-Immune Equivocal Equivocal Reactive Presumed Immune Platelets bldOrdered By: Erik Murray on 12-12-2022 Platelets (Bld) [#/Vol] 313 10*3/uL 150-450 [facility] Serum Treponema species anti body detectionOrdered By: Mickie Murray on 12-12-2022 Treponema sp Ab Ql (S) Non-Reactive [facility] Whole blood hemoglobin A1c/t otal hemoglobin ratio (mass fraction)Ordered By: Mickie Murray on 12-12-2022 HbA1c (Bld) [Mass fraction] 5.3 % 3.8-5.6 [facility] Comment on above: Normal < 5.7 % Predi abetic 5.7 - 6.4 % Diabetic >or= 6.5 % Please note range changes. C. trachomatis+N. gonorrhoea e DNA TONG+probe Ql (Unsp spec)on 07-09-2021 C. trachomatis DNA TONG+probe Ql (Unsp spec) Negative Normal Negative for Chlamydia trachomatis by amplificaton [facility] Comment on above: Order Comment: Speci men Type: SWABOrdering Facility: [facility] Address: [address] [place] [address] Performed By: #### 3 [id number] ####[facility] LABCLIA [id number] [address] [place] N. gonorrhoeae DNA TONG+probe Ql (Unsp spec) Negative Normal Negative for Neisseria gonorrhoeae by amplification [facility] Comment on above: Order Comment: Speci men Type: SWABOrdering Facility: [facility] Address: [address] [place] [address] Performed By: #### 3 [id number] ####[facility] LABCLIA [id number] [address] [place] CNOVon 07-09-2021 CNOV Office Visit (OBGYWM ) KARLA TUTTLE ([id number]) 1995 F Date Time Provider Department 07/09/21 [...] OB History No obstetric history on file. 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 Normal [facility] PAP FLUID CERVICAL SCREENING on 07-09-2021 CASE REPORT Normal [facility] Comment on above: Order Comment: Speci men Type: FLUID SAMPLEOrdering Facility: [facility] Address: [address] [place] [address] Result Comment: Gyne cologic Cytology Report Case: [id number] Authorizing Provider: Kaitlin Montilla APRN.CNM Collected: 07/09/2021 10:22 AM Ordering Location: OB/Gynecology Received: 07/09/2021 01:57 PM First Screen: PAULETTE Block ASCP Specimen: PAP EXTERIOR INTERIOR SPECIALIST SCREENING, CERVICAL SCREENING FLUID Performed By: #### L [id number] ####[facility] LABCLIA [id number] [place] [address] [place] CLINICAL HISTORY ROUTINE EXAM Normal [facility] Comment on above: Order Comment: Speci men Type: FLUID SAMPLEOrdering Facility: [facility] Address: [address] [place] [address] Performed By: #### L [id number] ####[facility] LABCLIA [id number] [place] [address] [place] CYTOLOGY INTERPRETATION PAP Normal [facility] Comment on above: Order Comment: Speci men Type: FLUID SAMPLEOrdering Facility: [facility] Address: [address] [place] [address] Result Comment: Nega tive for Intraepithelial lesion or malignancy. Performed By: #### L [id number] ####[facility] LABCLIA [id number] [address] [place] FINAL DIAGNOSIS Normal [facility] Comment on above: Order Comment: Speci men Type: FLUID SAMPLEOrdering Facility: [facility] Address: [address] [place], [place] [id number] Result Comment: A - CERVICAL SCREENING FLUID Satisfactory for interpretation Negative for Intraepithelial lesion or malignancy. Performed By: #### L [id number] ####[facility] LABCLIA [id number] [address] [place] FINAL PERFORMING LAB Normal [facility] Comment on above: Order Comment: Speci men Type: FLUID SAMPLEOrdering Facility: [facility] Address: [address] [place] [address] Result Comment: Tech nical component, inspector casing screening performed at [facility], [address] [place] [address] [place] [address] CLIA# [id number] Diagnostic interpretation performed at [facility], [address] [place] [address] [place] [address] CLIA# [id number] Contract Manager: Shane De Paz M.D. Performed By: #### L [id number] ####[facility] LABCLIA [id number] [address] [place] HPV REQUESTED? Yes, Reflex HPV for ASCUS Normal [facility] Comment on above: Order Comment: Speci men Type: FLUID SAMPLEOrdering Facility: [facility] Address: [address] [place] [address] Performed By: #### L [id number] ####[facility] LABCLIA [id number] [address] [place] LMP 06/09/2021 Normal [facility] Comment on above: Order Comment: Speci men Type: FLUID SAMPLEOrdering Facility: [facility] Address: [address] [place] [address] Performed By: #### L [id number] ####[facility] LABCLIA [id number] [place] [address] [place] PAP DISCLAIMER COMMENT The Pap Smear is a screening test for cervical cancer. False negative results occur with all screening tests, emphasizing the need for rescreening at recommended intervals, and clinical correlation. Normal [facility] Comment on above: Order Comment: Speci men Type: FLUID SAMPLEOrdering Facility: [facility] Address: [address] [place] [address] Performed By: #### L [id number] ####[facility] LABCLIA [id number] [address] [place] PAP EXTERIOR INTERIOR SPECIALIST COMMENT This specimen has been analyzed by the ThinPrep Imaging System, an automated imaging and review system, which assists the laboratory in evaluating cells on ThinPrep Pap tests. Following automated imaging, selected dhillon from every slide are reviewed by a inspector casing. Normal [facility] Comment on above: Order Comment: Speci men Type: FLUID SAMPLEOrdering Facility: [facility] Address: [address] [place] [address] Performed By: #### L [id number] ####[facility] LABCLIA [id number] [address] MRI BRAIN WO IVCONon 05-01-2 022 MRI BRAIN WO IVCON * * *Final Report* * * DATE OF EXAM: May 01 2021 2:44PM [facility] 0294 - MRI BRAIN WO IVCON [...] chronic small vessel ischemia among other etiologies. Linux Consultant: PSCB Transcribe Date/Time: May 01 2021 3:09P Dictated by : NATALIE REYES, DO This examination was interpreted and the report reviewed and electronically signed by: CARSON CORDOVA MD on May 01 2021 3:59PM EST [id number] Normal [facility] CNOVon 04-13-2021 CNOV Office Visit (NEURMM ) KARLA TUTTLE ([id number]) 1995 F Date Time Provider Department 04/13/21 10:00 AM YARELI LEMUS NEUR During your visit today, we recorded the following information about you: Pulse Blood pressure Weight 68/minute 133/69 105.1 kg Yareli Lemus MD 04/13/2021 10:33 AM Signed [facility] - new patient evaluation Date: April 13, 2021 Patient Name: Karla Tuttle Referring physician: Shelley Overton [address] [address] [place] [address] [address] [place], [place] [id number] Reason for Evaluation: lightheadedness HPI: The pt [...] [facility] for further evaluation. Was in [facility] 09/20/2020 for intermittent dizziness. Told she may have POTS in the past but she was tired of seeing doctors and saw didn't see anyone for a few years. Previously saw Cardiology 02/19/2021 for lightheadedness and palpitations. Possible diagnosis of POTS in past based on tilt table evaluation but those records are unavailable. 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 Normal [facility] CNOVon 04-02-2021 CNOV Office Visit (CAWSTR ) KARLA TUTTLE ([id number]) 1995 F Date Time Provider Department 04/02/21 3:00 PM SHELLEY OVERTON During your visit today, we recorded the following information about you: Pulse Blood pressure Weight Last Period 84/minute 130/70 104.3 kg 03/19/21 Shelley Overton APRN.[employer] 04/08/2021 8:12 PM Signed Chief Complaint Patient [...] injection (DEFINITY) INTRAVENOUS DIRECTED PRN Rachel Moon APRN.[employer] - sodium chloride 0.9 % (flush) 10 mL (BD POSIFLUSH) 10 mL INTRAVENOUS DIRECTED PRN Rachel Moon APRN.[employer] Review of Systems Constitutional: Negative for chills, [...] is s (more content not included)... Normal [facility] CNOVon 02-27-2021 CNOV Office Visit (VSLWST ) KARLA TUTTLE ([id number]) 1995 F Date Time Provider Department 02/27/21 3:30 PM [facility] WSTR VSLWST During your visit today, we recorded the following information about you: Shelley Overton APRN.[employer] 02/27/2021 7:55 PM Signed Please call patient and let her know carotid US study was normal. Thank you! Referring Provider: SHELLEY OVERTON [[id number]] Allergies As of Date: 02/27/2021 (No Known Allergies) Date Reviewed: 02/21/2021 Reviewed by: Shelley Overton APRN.[employer] [facility] - Fully Assessed Visit Diagnosis:Lightheaded ness [R42] Order(s):US CAROTID ARTERIES [facility] [[id number]] Order #: [id number]. #[id number] Prescriptions as of 02/28/2021 - propranolol (INDERAL) [...] Status:Closed by SHELLEY OVERTON on 02/28/21 Normal [facility] CNPNon 02-23-2021 CNPN Telephone (CAWSTR) KARLA TUTTLE ([id number]) 1995 F Date Time Provider Department 02/23/21 SHELLEY OVERTON During your visit today, we recorded the following information about you: Thiago Langley Pss 02/23/2021 9:36 AM Signed Shelley, could you change the order for the Carotid to Vascular instead of Radiology? I scheduled the pt for 02/27 at 3:30 pm in the Vascular Lab in [place]. Thank you, Thiago Langley Patient Outreach Allergies As of Date: 02/23/2021 (No Known Allergies) Date Reviewed: 02/21/2021 Reviewed by: Shelley Overton, SENIOR MANUFACTURING ENGINEER.[employer] - Fully Assessed Reason for Visit: Orders [681] Primary Visit Diagnosis:Lightheaded ness [R42] Order(s): CAROTID ARTERIES [facility] [[id number]] Order #: [id number] FUTURE Prescriptions as of 02/23/2021 - propranolol [...] Encounter Status:Closed by SHELLEY OVERTON on 02/23/21 [facility] CNOVon 02-19-2021 CNOV Office Visit (CAWSTR ) KARLA TUTTLE ([id number]) 1995 F Date Time Provider Department 02/19/21 2:00 PM SHELLEY OVERTON During your visit today, we recorded the following information about you: Pulse Blood pressure Weight Height 96/minute 140/74 104.3 kg 1.676 m Shelley Overton APRN.MAGALIS 02/19/2021 2:32 PM Signed Heart Disease in Women Is heart disease a problem for women? Heart disease is the leading cause of of [place] women. More women from heart disease than [...] disease. You can get more information from: -[place] Heart Ulbuueapphn5-123-BIO- [place]-1 ( )www.h eart.org Developed by [employer]. Published by [employer]. Copyright ?2013 [employer] and/or one of its subsidiaries. All rights reserved. Shelley Overton APRN.[employer] 02/21/2021 10:15 AM Signed [facility] SECTION [facility] REGIONAL CARDIOLOGY Cardiology ([facility]) [address] [facility] [id number] OUTPATIENT VISIT February 19, 2021 2:00 PM [...] due to (more content not included)... Normal [facility] CBC and Differentialon 11-13 Abs Baso 0.08 k/uL Normal <0.11 [facility] Comment on above: Performed By: #### C MP, TSH, IRON, MG1, AHCV1B, HIV12C, CBCDIF, FT4, FERR ####[place] [address] [place] [phone] Abs [place] 0.62 k/uL Normal <0.87 [facility] Comment on above: Performed By: #### C MP, TSH, IRON, MG1, AHCV1B, HIV12C, CBCDIF, FT4, FERR ####[place] [address] [place] [phone] Abs Neut 4.38 k/uL Normal 1.45-7.50 [facility] Comment on above: Performed By: #### C MP, TSH, IRON, MG1, AHCV1B, HIV12C, CBCDIF, FT4, FERR ####[place] [address] [place] [phone] Absolute nRBC <0.01 Normal <0.01 [facility] Comment on above: Performed By: #### C MP, TSH, IRON, MG1, AHCV1B, HIV12C, CBCDIF, FT4, FERR ####[place] [address] [place] [phone] Basophils/100 WBC (Bld) 1.0 % Normal [facility] Comment on above: Performed By: #### C MP, TSH, IRON, MG1, AHCV1B, HIV12C, CBCDIF, FT4, FERR ####[place] [address] [place] [phone] DTYPE Auto Diff Normal [facility] Comment on above: Performed By: #### C MP, TSH, IRON, MG1, AHCV1B, HIV12C, CBCDIF, FT4, FERR ####[place] [address] [address] [place] [phone] Eosinophils (Bld) [#/Vol] 0.32 10*3/uL Normal <0.46 [facility] Comment on above: Performed By: #### C MP, TSH, IRON, MG1, AHCV1B, HIV12C, CBCDIF, FT4, FERR ####[address] [place] [phone] Eosinophils/100 WBC (Bld) 3.8 % Normal [facility] Comment on above: Performed By: #### C MP, TSH, IRON, MG1, AHCV1B, HIV12C, CBCDIF, FT4, FERR ####[place] [phone] Erythrocyte distribution width (RBC) [Ratio] 12.3 % Normal 11.5-15.0 [facility] Comment on above: Performed By: #### C MP, TSH, IRON, MG1, AHCV1B, HIV12C, CBCDIF, FT4, FERR ####[place] [phone] Hematocrit (Bld) [Volume fraction] 41.1 % Normal 36.0-46.0 [facility] Comment on above: Performed By: #### C MP, TSH, IRON, MG1, AHCV1B, HIV12C, CBCDIF, FT4, FERR ####[place] [address] [address] [place] [phone] Hemoglobin (Bld) [Mass/Vol] 12.9 g/dL Normal 11.5-15.5 [facility] Comment on above: Performed By: #### C MP, TSH, IRON, MG1, AHCV1B, HIV12C, CBCDIF, FT4, FERR ####[address] [place] [phone] Lymphocytes (Bld) [#/Vol] 2.93 10*3/uL Normal 1.00-4.00 [facility] Comment on above: Performed By: #### C MP, TSH, IRON, MG1, AHCV1B, HIV12C, CBCDIF, FT4, FERR ####[place] [address] [place] [phone] Lymphocytes/100 WBC (Bld) 35.1 % Normal [facility] Comment on above: Performed By: #### C MP, TSH, IRON, MG1, AHCV1B, HIV12C, CBCDIF, FT4, FERR ####[place] [address] [address] [place] [phone] MCH 29.2 pG Normal 26.0-34.0 [facility] Comment on above: Performed By: #### C MP, TSH, IRON, MG1, AHCV1B, HIV12C, CBCDIF, FT4, FERR ####[place] [phone] MCHC (RBC) [Mass/Vol] 31.4 g/dL Normal 30.5-36.0 [facility] Comment on above: Performed By: #### C MP, TSH, IRON, MG1, AHCV1B, HIV12C, CBCDIF, FT4, FERR ####[place] [phone] MCV (RBC) [Entitic vol] 93.0 fL Normal 80.0-100.0 [facility] Comment on above: Performed By: #### C MP, TSH, IRON, MG1, AHCV1B, HIV12C, CBCDIF, FT4, FERR ####[place] [address] [place] [phone] Monocytes/100 WBC (Bld) 7.4 % Normal [facility] Comment on above: Performed By: #### C MP, TSH, IRON, MG1, AHCV1B, HIV12C, CBCDIF, FT4, FERR ####[place] [address] [place] [phone] Neutrophils/100 WBC (Bld) 52.7 % Normal [facility] Comment on above: Performed By: #### C MP, TSH, IRON, MG1, AHCV1B, HIV12C, CBCDIF, FT4, FERR ####[place] [address] AveCSummer [place], [place] [phone] NRBCs 0.0 /100 WBC Normal 0 [facility] Comment on above: Performed By: #### C MP, TSH, IRON, MG1, AHCV1B, HIV12C, CBCDIF, FT4, FERR ####[place] [address] [place] [phone] Platelet mean volume (Bld) [Entitic vol] 10.6 fL Normal 9.0-12.7 [facility] Comment on above: Performed By: #### C MP, TSH, IRON, MG1, AHCV1B, HIV12C, CBCDIF, FT4, FERR ####[place] [address] [place] [phone] Platelets (Bld) [#/Vol] 349 10*3/uL Normal 150-400 [facility] Comment on above: Performed By: #### C MP, TSH, IRON, MG1, AHCV1B, HIV12C, CBCDIF, FT4, FERR ####[place] [address]CSum[address] [place], [place] [phone] RBC (Bld) [#/Vol] 4.42 10*6/uL Normal 3.90-5.20 [facility] Comment on above: Performed By: #### C MP, TSH, IRON, MG1, AHCV1B, HIV12C, CBCDIF, FT4, FERR ####[facility]CSum[address] [place], [place] [phone] WBC (Bld) [#/Vol] 8.35 10*3/uL Normal 3.70-11.00 [facility] Comment on above: Performed By: #### C MP, TSH, IRON, MG1, AHCV1B, HIV12C, CBCDIF, FT4, FERR ####[facility] [place], [place] [phone] CNOVon 11-13-2020 CNOV Office Visit (FAMPWS ) KARLA TUTTLE ([id number]) 1995 F Date Time Provider Department 11/13/20 2:00 PM RACHEL MOON During your visit today, we recorded the following information about you: Pulse Respiration Blood pressure Weight 80/minute 18/minute 128/90 103 kg Last Period 10/30/20 Rachel Moon APRN.[employer] 11/13/2020 7:50 PM Signed This is a [...] [facility]. Dr. Natalio perry/ [facility]. Neurology. Has never had an echo. Has [...] INJECTION SYRIN (more content not included)... Normal [facility] Comp Metabolic Panelon 11-13 Albumin [Mass/Vol] 4.9 g/dL Normal 3.9-4.9 [facility] Comment on above: Performed By: #### C MP, TSH, IRON, MG1, AHCV1B, HIV12C, CBCDIF, FT4, FERR ####[facility] [place], [place] [phone] ALP [Catalytic activity/Vol] 47 U/L Normal 34-123 [facility] Comment on above: Performed By: #### C MP, TSH, IRON, MG1, AHCV1B, HIV12C, CBCDIF, FT4, FERR ####[facility] [place], [place] [phone] ALT [Catalytic activity/Vol] 50 U/L High 7-38 [facility] Comment on above: Performed By: #### C MP, TSH, IRON, MG1, AHCV1B, HIV12C, CBCDIF, FT4, FERR ####[place] [address] [place], [place] [phone] Anion gap [Moles/Vol] 13 mmol/L Normal 9-18 [facility] Comment on above: Performed By: #### C MP, TSH, IRON, MG1, AHCV1B, HIV12C, CBCDIF, FT4, FERR ####[place] [phone] AST [Catalytic activity/Vol] 29 U/L Normal 13-35 [facility] Comment on above: Performed By: #### C MP, TSH, IRON, MG1, AHCV1B, HIV12C, CBCDIF, FT4, FERR ####[address] [phone] Bilirubin [Mass/Vol] 0.3 mg/dL Normal 0.2-1.3 [facility] Comment on above: Performed By: #### C MP, TSH, IRON, MG1, AHCV1B, HIV12C, CBCDIF, FT4, FERR ####[place] [phone] Calcium [Mass/Vol] 9.8 mg/dL Normal 8.5-10.2 [facility] Comment on above: Performed By: #### C MP, TSH, IRON, MG1, AHCV1B, HIV12C, CBCDIF, FT4, FERR ####[address] [phone] Chloride [Moles/Vol] 104 mmol/L Normal 97-105 [facility] Comment on above: Performed By: #### C MP, TSH, IRON, MG1, AHCV1B, HIV12C, CBCDIF, FT4, FERR ####[place] [address], [place] [phone] CO2 [Moles/Vol] 23 mmol/L Normal 22-30 [facility] Comment on above: Performed By: #### C MP, TSH, IRON, MG1, AHCV1B, HIV12C, CBCDIF, FT4, FERR ####[facility] [place] [phone] Creatinine [Mass/Vol] 0.76 mg/dL Normal 0.58-0.96 [facility] Comment on above: Performed By: #### C MP, TSH, IRON, MG1, AHCV1B, HIV12C, CBCDIF, FT4, FERR ####[place] [address] [place] [phone] eGFR- Amer. >60 Normal [facility] Comment on above: Performed By: #### C MP, TSH, IRON, MG1, AHCV1B, HIV12C, CBCDIF, FT4, FERR ####[place] [phone] eGFR-All Other Races >60 Normal [facility] Comment on above: Result Comment: eGFR [...] IRON, MG1, AHCV1B, HIV12C, CBCDIF, FT4, FERR ####[place] [phone] Glucose [Mass/Vol] 82 mg/dL Normal 74-99 [facility] Comment on above: Result Comment: The [place] Diabetes Association (ADA) provides guidance for cutoff [...] Standards of Medical Care in Diabetes 2016, [place] Diabetes Association. Diabetes Care. 2016.39(Suppl 1). Performed By: #### C MP, TSH, IRON, MG1, AHCV1B, HIV12C, CBCDIF, FT4, FERR ####[address] [phone] Potassium [Moles/Vol] 3.9 mmol/L Normal 3.7-5.1 [facility] Comment on above: Performed By: #### C MP, TSH, IRON, MG1, AHCV1B, HIV12C, CBCDIF, FT4, FERR ####[address] [phone] Protein [Mass/Vol] 7.3 g/dL Normal 6.3-8.0 [facility] Comment on above: Performed By: #### C MP, TSH, IRON, MG1, AHCV1B, HIV12C, CBCDIF, FT4, FERR ####[address] [phone] Sodium [Moles/Vol] 140 mmol/L Normal 136-144 [facility] Comment on above: Performed By: #### C MP, TSH, IRON, MG1, AHCV1B, HIV12C, CBCDIF, FT4, FERR ####[address] [phone] Urea nitrogen [Mass/Vol] 11 mg/dL Normal 7-21 [facility] Comment on above: Performed By: #### C MP, TSH, IRON, MG1, AHCV1B, HIV12C, CBCDIF, FT4, FERR ####[place] [id number] [place], [place] [phone] Ferritinon 11-13-2020 Ferritin [Mass/Vol] 66.0 ng/mL Normal 14.7-205.1 [facility] Comment on above: Performed By: #### C MP, TSH, IRON, MG1, AHCV1B, HIV12C, CBCDIF, FT4, FERR ####[address] [phone] Free T4on 11-13-2020 Free T4 [Mass/Vol] 1.1 ng/dL Normal 0.9-1.7 [facility] Comment on above: Performed By: #### C MP, TSH, IRON, MG1, AHCV1B, HIV12C, CBCDIF, FT4, FERR ####[address] [phone] [id number] Ag +HIV12 Abon 11-13 HIV 12 Ag/Ab Non-Reactive Normal Non Reactive [facility] Comment on above: Performed By: #### C MP, TSH, IRON, MG1, AHCV1B, HIV12C, CBCDIF, FT4, FERR ####[address] [phone] HIV-1/2 Antibody Normal [facility] Comment on above: Result Comment: Test Not Indicated Negative No evidence of HIV-1 or HIV-2 infection. Should recent infection be suspected, repeat testing may be considered 2-3 weeks after this draw. HIV Information: [place] Rev. Code 3701.243(E): This information has been [...] IRON, MG1, AHCV1B, HIV12C, CBCDIF, FT4, FERR ####[place] [address] [place], [place] [phone] Hep C Ab IA w/Confon 021 Hepatitis C Ab IA Negative Normal Negative [facility] Comment on above: Performed By: #### C MP, TSH, IRON, MG1, AHCV1B, HIV12C, CBCDIF, FT4, FERR ####[place] [address], [place] [phone] Iron and TIBCon 11-13-2020 Iron [Mass/Vol] 62 ug/dL Normal 41-186 [facility] Comment on above: Performed By: #### C MP, TSH, IRON, MG1, AHCV1B, HIV12C, CBCDIF, FT4, FERR ####[address] [phone] TIBC 368 ug/dL Normal 232-386 [facility] Comment on above: Performed By: #### C MP, TSH, IRON, MG1, AHCV1B, HIV12C, CBCDIF, FT4, FERR ####[address] [phone] Transferrin Saturatn 17 % Normal 15-57 [facility] Comment on above: Performed By: #### C MP, TSH, IRON, MG1, AHCV1B, HIV12C, CBCDIF, FT4, FERR ####[address], [place] [phone] Magnesiumon 11-13-2020 Magnesium [Mass/Vol] 2.2 mg/dL Normal 1.7-2.3 [facility] Comment on above: Performed By: #### C MP, TSH, IRON, MG1, AHCV1B, HIV12C, CBCDIF, FT4, FERR ####[place] [address] [place], [place] [phone] TSHon 11-13-2020 TSH Qn 1.420 m[IU]/L Normal 0.270-4.200 [facility] Comment on above: Result Comment: If t [...] E, et al. 2017 Guidelines of the [place] Thyroid Association for the Diagnosis and Management of Thyroid Disease during and the . Thyroid, 2017:27:3:315-389. Performed By: #### C MP, TSH, IRON, MG1, AHCV1B, HIV12C, CBCDIF, FT4, FERR ####[facility] [address] [place], [place] [phone] Beta HCG (Qual), Serum - CHR Ion 03-25-2017 Beta HCG (Qual), Serum Negative Normal [facility] Comment on above: Performed By: #### Missael BCDFJ ####Lauro [facility] [place] [place] [phone] CBC WITH DIFF [place] 2017 Abs Baso 0.05 K/uL Normal 0.01-0.08 [facility] Comment on above: Performed By: #### C BCDFJ ####[facility]Reg[facility] [place], [place] [address] Abs Eos 0.10 K/uL Normal 0.04-0.36 [facility] Comment on above: Performed By: #### C BCDFJ ####[place] [facility] [place] [place] [address] Abs Mariposa 0.60 K/uL Normal 0.24-0.86 [facility] Comment on above: Performed By: #### C TIENDFJ ####Lauro RODRIGUEZ, [facility] [place], [place] [address] Basophils/100 WBC Auto (Bld) 0.5 % Normal [facility] Comment on above: Performed By: #### C BCDFJ ####Lauro RODRIGUEZ, [facility] [place], [place] [address] DIFFERENTIAL TYPE Electronic Differential Normal [facility] Comment on above: Performed By: #### C BCDFJ ####Lauro RODRIGUEZ, [facility] [place], [place] [address] Eosinophils/100 leukocytes 0.9 % Normal [facility] Comment on above: Performed By: #### C BCDFJ ####[facility]ZReg[facility] Company[address] [place] [address] Erythrocytes (RBC) 4.40 10*6/uL Normal 3.93-5.22 [facility] Comment on above: Performed By: #### C BCDFJ ####Lauro RODRIGUEZ, [facility] [place], [place] [address] Erythrocytes (RBC) 12.7 % Normal 11.7-14.4 [facility] Comment on above: Performed By: #### C BCDFJ ####Lauro RODRIGUEZ, [facility] [place], [place] [address] Hematocrit (HCT) 38.3 % Normal 34.1-44.9 [facility] Comment on above: Performed By: #### C BCDFJ ####Lauro RODRIGUEZ, [facility] [place], [place] [address] Hemoglobin mass conc (Bld) 12.5 g/dL Normal 11.2-15.7 [facility] Comment on above: Performed By: #### C BCDFJ ####Lauro RODRIGUEZ, [facility] [place], [place] [address] Hemoglobin mass conc (Bld) 32.6 g/dL Normal 32.2-35.5 [facility] Comment on above: Performed By: #### C CAITYJ ####Lauro RODRIGUEZ, [facility] [place] [address] Hemoglobin mass conc (Bld) 28.4 pg Normal 25.6-32.2 [facility] Comment on above: Performed By: #### Missael CAROLINAJ ####Lauro RODRIGUEZ, [facility] [place] [address] IMMATURE GRANS % 0.4 % Normal [facility] Comment on above: Performed By: #### C CAITYJ ####[facility]ZReg[facility] Company[address] [place] [address] IMMATURE GRANS ABSOLUTE 0.04 K/uL High 0.00-0.03 [facility] Comment on above: Performed By: #### Missael CAROLINAJ ####Lauro [facility] [place] [address] Lymphocytes 3.35 10*3/uL Normal 1.18-3.74 [facility] Comment on above: Performed By: #### C CAITYJ ####[facility]ZReg[facility] [place] [address] Lymphocytes/100 leukocytes 31.5 % Normal [facility] Comment on above: Performed By: #### C CAITYJ ####[facility] [place] [address] MCV 87.0 fL Normal 79.4-94.8 [facility] Comment on above: Performed By: #### Missael CAROLINAJ ####[facility] [place] [address] Monocytes/100 leukocytes 5.6 % Normal [facility] Comment on above: Performed By: #### C CAITYJ ####[facility] [place] [address] NEUTROPHIL SEGMENTED 61.1 % Normal [facility] Comment on above: Performed By: #### Missael CAROLINAJ ####Lauro RODRIGUEZ, [facility] [place] [address] Nucleated erythrocytes 0.0 /100 WBC Normal 0.0-0.2 [facility] Comment on above: Performed By: #### Missael CAROLINAJ ####Lauro RODRIGUEZ, [facility] [place] [phone] Platelet mean volume (PMV) 10.2 fL Normal 9.4-12.3 [facility] Comment on above: Performed By: #### Missael RESENDIZ ####Lauro RODRIGUEZ, [facility] [place] [address] Platelets 356 10*3/uL Normal 182-369 [facility] Comment on above: Performed By: #### Missael RESENDIZ ####Lauro RODRIGUEZ, [facility] [place] [address] SEGS + Bands,Absolute 6.48 K/uL High 1.56-6.13 [facility] Comment on above: Performed By: #### Missael RESENDIZ ####Lauro RODRIGUEZ, [facility] [place] [phone] WBC (Leukocytes) 10.62 10*3/uL High 3.98-10.04 [facility] Comment on above: Performed By: #### Missael RESENDIZ ####Lauro RODRIGUEZ, [facility] [place] [phone] CHEM 7 ED - CHRIon 8 Anion gap 14 mmol/L Normal 7-17 [facility] Comment on above: Performed By: #### Missael RESENDIZ ####Lauro RODRIGUEZ, [facility] [place] [address] BUN/Creatinine Ratio 18 mg/mg Normal [facility] Comment on above: Performed By: #### Missael RESENDIZ ####Lauro RODRIGUEZ, [facility] Rehabilitation[address] [place] [address] Chloride 106 mmol/L Normal 98-108 [facility] Comment on above: Performed By: #### C BCROSALVAJ ####Lauro RODRIGUEZ, [facility] [place] [address]193 CO2 23 mmol/L Normal 22-30 [facility] Comment on above: Performed By: #### C TIENDFJ ####Lauro RODRIGUEZ, [facility] [place] [address] Creatinine 0.74 mg/dL Normal 0.50-1.20 [facility] Comment on above: Performed By: #### C CAITYJ ####Lauro RODRIGUEZ, [facility] [place] [address]70 eGFR (non-black) mL/min/{1.73_m2} Normal >60 [facility] Comment on above: Performed By: #### C BCROSALVAJ ####Lauro RODRIGUEZ, [facility] [place], [place] [id number] Glucose mass conc 88 mg/dL Normal 70-99 [facility] Comment on above: Performed By: #### C CAITYJ ####Lauro RODRIGUEZ, [facility] [place] [address] Osmolality 289 mOsm/kg Normal 278-305 [facility] Comment on above: Performed By: #### C BCROSALVAJ ####Lauro RODRIGUEZ, [facility] [place] [address]33 Potassium molar conc 3.5 mmol/L Normal 3.5-5.0 [facility] Comment on above: Performed By: #### C BCDFJ ####Lauro RODRIGUEZ, [facility] [place], [place] [id number] Sodium 139 mmol/L Normal 133-143 [facility] Comment on above: Performed By: #### C BCDFJ ####Lauro RODRIGUEZ, [facility], [place] [address] Urea nitrogen 13 mg/dL Normal 7-22 [facility] Comment on above: Performed By: #### C CAITYJ ####Lauro RODRIGUEZ, [facility] [place] [address]27 Calcium - CHRIon 03-25-2017 Calcium 9.5 mg/dL Normal 8.6-10.5 [facility] Comment on above: Performed By: #### C CAITYJ ####Lauro RODRIGUEZ, [facility] [place] [address]38 Inorg Phosphate - CHRIon Inorg Phosphate 2.9 mg/dL Normal 2.2-4.6 [facility] Comment on above: Performed By: #### C CAITYJ ####Lauro RODRIGUEZ, [facility] [place] [address] Magn[facility] - [facility] 8 Magnesium 2.0 mg/dL Normal 1.6-2.6 [facility] Comment on above: Performed By: #### C CAITYJ ####Lauro RODRIGUEZ, [facility] [place] [address] 84269 CBC with Diffon 02-14-2017 Erythrocyte distribution width Auto Ratio (RBC) 12.8 % Normal 11.7-15.0 [facility] Comment on above: Performed By: #### C BCGary ####[facility] [address] Erythrocytes (RBC) 4.61 M/UL Normal 4.0-4.9 [facility] Comment on above: Performed By: #### C BCD ####[address] [address] Hematocrit (HCT) 41.6 % Normal 36-44 [facility] Comment on above: Performed By: #### C BCD ####[address] [address] Hemoglobin mass conc (Bld) 13.2 g/dL Normal 12.0-15.0 [facility] Comment on above: Performed By: #### C TIEND ####[place] [address] [place] [address] MCH 28.6 pg Normal 26-34 [facility] Comment on above: Performed By: #### C BCD ####[facility] LaboratoryMnke [place] [address] [place] [address] MCHC mass conc (RBC) 31.7 % Normal 31-37 [facility] Comment on above: Performed By: #### C BCD ####[place] [address] [address] MCV 90.2 fL Normal 80-100 [facility] Comment on above: Performed By: #### C BCD ####[place] [address] [address] RDW-SD 41.7 FL Normal 37.0-54.0 [facility] Comment on above: Performed By: #### C BCD ####[place] [address] [place] [address] AB IMMATURE NEUT 0.02 K/UL Normal 0.0-0.1 [facility] Comment on above: Performed By: #### C BCD ####[place] [address] [address] [place] [address] ABS BASO 0.06 K/UL Normal 0.00-0.22 [facility] Comment on above: Performed By: #### C BCD ####[facility] LaboratoryChristopher [place] [address] [address] [place] [address] ABS EOS 0.21 K/UL Normal 0-0.45 [facility] Comment on above: Performed By: #### C BCD ####[place] [address] [address] [place] [address] ABS.NEUT.CALCULATED Normal [facility] Comment on above: Result Comment: NOT MEASUREDPerformed at [facility],[address] [place] [address] Performed By: #### C BCD ####[place] [address] [place] [address] Basophils/100 WBC Auto (Bld) 0.70 % Normal 0-1 [facility] Comment on above: Performed By: #### C BCD ####[facility] LaboratoryLake Ltds[address] [place] [address] DIFF TYPE AUTO DIFF Normal [facility] Comment on above: Performed By: #### C BCD ####[facility] LaboratoryLake Stoh[address] [place] [address] Eosinophils/100 leukocytes 2.50 % Normal 0-3 [facility] Comment on above: Performed By: #### C BCD ####[facility] LaboratoryLake Ftdu[address] [place] [address] IMMATURE NEUT % 0.20 % Normal 0.0-1.0 [facility] Comment on above: Performed By: #### C BCD ####[facility] LaboratoryMnke We[address] [place] [address] Lymphocytes 2.64 10*3/uL Normal 1.2-3.2 [facility] Comment on above: Performed By: #### C BCD ####[facility] LaboratoryLake Yfzz[address] [place] [address] Lymphocytes/100 leukocytes 30.90 % Normal 20-40 [facility] Comment on above: Performed By: #### C BCD ####[facility] LaboratoryLake Vybl[address] [place] [address] MEAN PLT VOL 10.5 CU Normal 7.0-12.6 [facility] Comment on above: Performed By: #### C BCD ####[facility] LaboratoryLake Hhgv[address] [place] [address] Monocytes 0.52 10*3/uL Normal 0-0.8 [facility] Comment on above: Performed By: #### C BCD ####[facility] LaboratoryLake Dbfb[address] [place] [address] Monocytes/100 leukocytes 6.10 % Normal 0-8 [facility] Comment on above: Performed By: #### C BCD ####[facility] LaboratoryLake Toqz[address] [place] [address] Neutrophils 5.09 10*3/uL Normal 1.8-7.7 [facility] Comment on above: Performed By: #### C BCD ####[facility] LaboratoryLake Xbft[address] [place] [address] Neutrophils/100 leukocytes 59.60 % Normal 50-70 [facility] Comment on above: Performed By: #### C BCD ####[facility] LaboratoryLake Rcje[address] [place] [address] Platelets 348 10*3/uL Normal 150-450 [facility] Comment on above: Performed By: #### C BCD ####[facility] LaboratoryLake Zxcc[address] [place] [address] WBC (Leukocytes) 8.5 10*3/uL Normal 4.5-11.0 [facility] Comment on above: Performed By: #### C BCD ####[facility] LaboratoryLake Zujo[address] [place] [address] COMPREHENSIVE METABOLIC PANE [facility] 02-14-2017 Alanine aminotransferase (ALT) 22 U/L Normal 5-40 [facility] Comment on above: Performed By: #### C EVENT SPECIALIST FOOD DEMONSTRATOR ####[facility] LaboratoryLake Ncgu[address] [place] [address] Albumin 4.8 g/dL Normal 3.5-5.0 [facility] Comment on above: Performed By: #### C EVENT SPECIALIST FOOD DEMONSTRATOR ####[facility] LaboratoryLake Amsw[address] [place] [address] Albumin/Globulin Ratio 1.8 {ratio} Normal 1.5-3.0 [facility] Comment on above: Performed By: #### C EVENT SPECIALIST FOOD DEMONSTRATOR ####[facility] LaboratoryLake Rwbc[address] [place] [address] Alkaline phosphatase (ALP) 53 U/L Normal 35-125 [facility] Comment on above: Performed By: #### C EVENT SPECIALIST FOOD DEMONSTRATOR ####[facility] LaboratoryLake Etvg[address] [place] [address] Anion gap 14 mmol/L Normal 0-19 [facility] Comment on above: Performed By: #### C EVENT SPECIALIST FOOD DEMONSTRATOR ####[facility] LaboratoryLake Qkug[address] [place] [address] Aspartate aminotransferase (AST) 16 U/L Normal 5-40 [facility] Comment on above: Performed By: #### C EVENT SPECIALIST FOOD DEMONSTRATOR ####[facility] LaboratoryLake Tcok[address] [place] [address] Bilirubin (total) 0.3 mg/dL Normal 0.1-1.2 [facility] Comment on above: Performed By: #### C EVENT SPECIALIST FOOD DEMONSTRATOR ####[facility] LaboratoryMnke Svnm[address] [place] [address] BUN/Creatinine Ratio 13.8 RATIO Normal 8-21 [facility] Comment on above: Performed By: #### C EVENT SPECIALIST FOOD DEMONSTRATOR ####[facility] LaboratoryMnke [place] [address] [place] [address] Calcium 9.5 mg/dL Normal 8.5-10.4 [facility] Comment on above: Performed By: #### C EVENT SPECIALIST FOOD DEMONSTRATOR ####[facility] LaboratorySandy V[place] [address] [place] [address] Chloride 101 mmol/L Normal 97-107 [facility] Comment on above: Performed By: #### C EVENT SPECIALIST FOOD DEMONSTRATOR ####[facility] LaboratoryChristopher [place] [address] [address] CO2 24 mmol/L Normal 24-31 [facility] Comment on above: Performed By: #### C EVENT SPECIALIST FOOD DEMONSTRATOR ####[facility] LaboratoryChrist[place] [address] [address] Creatinine 0.8 mg/dL Normal 0.4-1.6 [facility] Comment on above: Performed By: #### C EVENT SPECIALIST FOOD DEMONSTRATOR ####[place] [address] [address] eGFR (MDRD) Normal [facility] Comment on above: Result Comment: 96GF R ml/min/1.73m2 Stage -----90 160-89 230-59 315-29 4<15 5For -Americans, multiply EGFR result by 1.210Calculation not validated for patients under 18 years of age.Performed at [facility],[address] [address] Performed By: #### C EVENT SPECIALIST FOOD DEMONSTRATOR ####[facility] LaboratoryMnke Kcfd[address] [place] [address] Globulin 2.7 g/dL Normal 1.9-3.7 [facility] Comment on above: Performed By: #### C EVENT SPECIALIST FOOD DEMONSTRATOR ####[address] [place] [address] Glucose mass conc 82 mg/dL Normal 65-99 [facility] Comment on above: Performed By: #### C EVENT SPECIALIST FOOD DEMONSTRATOR ####[address] [place] [address] Potassium molar conc 4.7 mmol/L Normal 3.4-5.1 [facility] Comment on above: Performed By: #### C EVENT SPECIALIST FOOD DEMONSTRATOR ####[address] [place] [address] Protein 7.5 g/dL Normal 5.9-7.9 [facility] Comment on above: Performed By: #### C EVENT SPECIALIST FOOD DEMONSTRATOR ####[address] [place] [address] Sodium 139 mmol/L Normal 133-145 [facility] Comment on above: Performed By: #### C EVENT SPECIALIST FOOD DEMONSTRATOR ####[address] [place] [address] Urea nitrogen 11 mg/dL Normal 8-25 [facility] Comment on above: Performed By: #### C EVENT SPECIALIST FOOD DEMONSTRATOR ####[address] [address] TSHon 02-14-2017 Thyroid stimulating hormone (TSH) Normal 0.27-4.20 [facility] Comment on above: Result Comment: 1.91 THIS TSH ASSAY HAS A FUNCTIONAL SENSITIVITY OF 0.01 MIU/L. THIS MEETSREQUIREMENTS OF A 3RD GENERATION HIGH SENSITIVE TSH ASSAY.Performed at [facility],[address] [place] [address] Performed By: #### T SHR ####[address] [address] GC/CHLAMYDIA BY AMPon 2016 GC/CHLAMYDIA BY AMP [...] perform high complexitytesting.Per formed at [facility]em[facility] Chao, [address] [place] [address], [address] Comment on above: Performed By: #### G PGCCT ####Artemio Romero[address] [place] [address], [address] [place] [address] Liquid PAPon 02-06-2017 Liquid PAP Patient Name: KARLA TUTTLE [facility]. Rec. #: [id number] CYTOLOGIC DIAGNOSISSPECIMEN ADEQUACY:Satisfactory for evaluation.Endocervic al transformation zone component present.Partial obscuring by inflammation present.GENERAL CATEGORIZATION:Negati ve for intraepithelial lesion or malignancy.See interpretation-result .INTERPRETATION/RESUL T:Negative for intraepithelial lesion or malignancy.The above diagnosis was rendered at [employer], [address] [place] [address], CLIA number [id number].This information is included on the report as [...] this screening test, please call thepathology laboratory. [facility] Comment on above: Performed By: #### 8 [facility] ####[place] [address] [place] [address] Vital Signs Date Time Vital Sign Value Performing Clinician Carolina amin 11-29-2024 09:48-0400 Body height 167.64 cm No Primary Care Physician [facility] 11-29-2024 09:48-0400 Body mass index (BMI) [Ratio] 35.4 kg/m2 No Primary Care Physician [facility] 11-29-2024 09:48-0400 Body weight 99.47 kg No Primary Care Physician [facility] 11-29-2024 09:48-0400 Diastolic blood pressure 75 mm[Hg] No Primary Care Physician [facility] 11-29-2024 09:48-0400 Systolic blood pressure 113 mm[Hg] No Primary Care Physician [facility] 11-02-2024 08:11-0400 Body height 167.64 cm No Primary Care Physician [facility] 11-02-2024 08:07-0400 Body mass index (BMI) [Ratio] 35.5 kg/m2 No Primary Care Physician [facility] 11-02-2024 08:07-0400 Body weight 99.79 kg No Primary Care Physician [facility] 11-02-2024 08:07-0400 Diastolic blood pressure 74 mm[Hg] No Primary Care Physician [facility] 11-02-2024 08:07-0400 Systolic blood pressure 119 mm[Hg] No Primary Care Physician [facility] 10-05-2024 09:56-0400 Body weight 100.06 kg No Primary Care Physician [facility] 10-05-2024 09:56-0400 Diastolic blood pressure 76 mm[Hg] No Primary Care Physician [facility] 10-05-2024 09:56-0400 Systolic blood pressure 134 mm[Hg] No Primary Care Physician [facility] 10-05-2024 09:36-0400 Body height 167.64 cm No Primary Care Physician [facility] 09-06-2024 08:29-0400 Body height 167.64 cm No Primary Care Physician [facility] 09-06-2024 08:29-0400 Body mass index (BMI) [Ratio] 35.9 kg/m2 No Primary Care Physician [facility] 09-06-2024 08:29-0400 Body weight 100.81 kg No Primary Care Physician [facility] 09-06-2024 08:29-0400 Diastolic blood pressure 84 mm[Hg] No Primary Care Physician [facility] 09-06-2024 08:29-0400 Systolic blood pressure 139 mm[Hg] No Primary Care Physician [facility] 08-05-2024 10:38-0400 Body height 167.64 cm No Primary Care Physician [facility] 08-05-2024 10:38-0400 Body mass index (BMI) [Ratio] 36.4 kg/m2 No Primary Care Physician [facility] 08-05-2024 10:38-0400 Body weight 102.51 kg No Primary Care Physician [facility] 08-05-2024 10:38-0400 Diastolic blood pressure 73 mm[Hg] No Primary Care Physician [facility] 08-05-2024 10:38-0400 Systolic blood pressure 123 mm[Hg] No Primary Care Physician [facility] 06-24-2023 14:00-0400 Body temperature 98.2 [degF] No Primary Care Physician [facility] 06-24-2023 14:00-0400 Diastolic blood pressure 80 mm[Hg] No Primary Care Physician [facility] 06-24-2023 14:00-0400 Heart rate 88 /min No Primary Care Physician [facility] 06-24-2023 14:00-0400 Respiratory rate 16 /min No Primary Care Physician [facility] 06-24-2023 14:00-0400 SaO2% (BldA) [Mass fraction] 99 % No Primary Care Physician [facility] 06-24-2023 14:00-0400 Systolic blood pressure 130 mm[Hg] No Primary Care Physician [facility] 06-21-2023 05:58-0400 Body height 167.64 cm No Primary Care Physician [facility] 06-21-2023 05:58-0400 Body mass index (BMI) [Ratio] 37.5 kg/m2 No Primary Care Physician [facility] 06-21-2023 05:58-0400 Body weight 105.68 kg No Primary Care Physician [facility] 06-20-2023 22:01-0400 Diastolic blood pressure 81 mm[Hg] No Primary Care Physician [facility] 06-20-2023 22:01-0400 Heart rate 107 /min No Primary Care Physician [facility] 06-20-2023 22:01-0400 Systolic blood pressure 134 mm[Hg] No Primary Care Physician [facility] 06-20-2023 21:51-0400 Body height 167.64 cm No Primary Care Physician [facility] 06-20-2023 21:51-0400 Body mass index (BMI) [Ratio] 37.5 kg/m2 No Primary Care Physician [facility] 06-20-2023 21:51-0400 Body weight 105.4 kg No Primary Care Physician [facility] 06-19-2023 16:25-0400 Body temperature 97.6 [degF] No Primary Care Physician [facility] 06-19-2023 16:24-0400 Diastolic blood pressure 74 mm[Hg] No Primary Care Physician [facility] 06-19-2023 16:24-0400 Heart rate 86 /min No Primary Care Physician [facility] 06-19-2023 16:24-0400 Systolic blood pressure 131 mm[Hg] No Primary Care Physician [facility] 06-19-2023 16:12-0400 Body height 167.64 cm No Primary Care Physician [facility] 06-19-2023 16:12-0400 Body mass index (BMI) [Ratio] 37.9 kg/m2 No Primary Care Physician [facility] 06-19-2023 16:12-0400 Body weight 106.59 kg No Primary Care Physician [facility] 06-16-2023 08:18-0400 Body mass index (BMI) [Ratio] 37.4 kg/m2 No Primary Care Physician [facility] 06-16-2023 08:18-0400 Body weight 105.23 kg No Primary Care Physician [facility] 06-16-2023 08:18-0400 Diastolic blood pressure 82 mm[Hg] No Primary Care Physician [facility] 06-16-2023 08:18-0400 Systolic blood pressure 129 mm[Hg] No Primary Care Physician [facility] 06-10-2023 08:06-0400 Body mass index (BMI) [Ratio] 37.5 kg/m2 No Primary Care Physician [facility] 06-10-2023 08:06-0400 Body weight 105.68 kg No Primary Care Physician [facility] 06-10-2023 08:06-0400 Diastolic blood pressure 85 mm[Hg] No Primary Care Physician [facility] 06-10-2023 08:06-0400 Systolic blood pressure 131 mm[Hg] No Primary Care Physician [facility] 06-03-2023 08:19-0400 Body mass index (BMI) [Ratio] 37.3 kg/m2 No Primary Care Physician [facility] 06-03-2023 08:19-0400 Body weight 104.94 kg No Primary Care Physician [facility] 06-03-2023 08:19-0400 Diastolic blood pressure 79 mm[Hg] No Primary Care Physician [facility] 06-03-2023 08:19-0400 Systolic blood pressure 131 mm[Hg] No Primary Care Physician [facility] 05-28-2023 16:10-0400 Body height 167.64 cm No Primary Care Physician [facility] 05-28-2023 16:10-0400 Body mass index (BMI) [Ratio] 37.5 kg/m2 No Primary Care Physician [facility] 05-28-2023 16:10-0400 Body weight 105.4 kg No Primary Care Physician [facility] 05-28-2023 16:10-0400 Diastolic blood pressure 81 mm[Hg] No Primary Care Physician [facility] 05-28-2023 16:10-0400 Systolic blood pressure 128 mm[Hg] No Primary Care Physician [facility] 05-13-2023 08:06-0400 Body height 167.64 cm No Primary Care Physician [facility] 05-13-2023 08:06-0400 Body mass index (BMI) [Ratio] 37.1 kg/m2 No Primary Care Physician [facility] 05-13-2023 08:06-0400 Body weight 104.32 kg No Primary Care Physician [facility] 05-13-2023 08:06-0400 Diastolic blood pressure 80 mm[Hg] No Primary Care Physician [facility] 05-13-2023 08:06-0400 Systolic blood pressure 124 mm[Hg] No Primary Care Physician [facility] 04-28-2023 08:23-0400 Body mass index (BMI) [Ratio] 36.6 kg/m2 No Primary Care Physician [facility] 04-28-2023 08:23-0400 Body weight 103.07 kg No Primary Care Physician [facility] 04-28-2023 08:23-0400 Diastolic blood pressure 83 mm[Hg] No Primary Care Physician [facility] 04-28-2023 08:23-0400 Systolic blood pressure 129 mm[Hg] No Primary Care Physician [facility] 04-16-2023 15:38-0500 Body mass index (BMI) [Ratio] 37 kg/m2 No Primary Care Physician [facility] 04-16-2023 15:38-0500 Body weight 104.09 kg No Primary Care Physician [facility] 04-16-2023 15:38-0500 Diastolic blood pressure 80 mm[Hg] No Primary Care Physician [facility] 04-16-2023 15:38-0500 Systolic blood pressure 126 mm[Hg] No Primary Care Physician [facility] 03-27-2023 08:02-0500 Body height 167.64 cm No Primary Care Physician [facility] 03-27-2023 08:02-0500 Body mass index (BMI) [Ratio] 36.6 kg/m2 No Primary Care Physician [facility] 03-27-2023 08:02-0500 Body weight 102.96 kg No Primary Care Physician [facility] 03-27-2023 08:02-0500 Diastolic blood pressure 74 mm[Hg] No Primary Care Physician [facility] 03-27-2023 08:02-0500 Systolic blood pressure 118 mm[Hg] No Primary Care Physician [facility] 02-27-2023 08:09-0500 Body mass index (BMI) [Ratio] 36.3 kg/m2 No Primary Care Physician [facility] 02-27-2023 08:09-0500 Body weight 102.22 kg No Primary Care Physician [facility] 02-27-2023 08:09-0500 Diastolic blood pressure 82 mm[Hg] No Primary Care Physician [facility] 02-27-2023 08:09-0500 Systolic blood pressure 134 mm[Hg] No Primary Care Physician [facility] 01-30-2023 11:58-0500 Body mass index (BMI) [Ratio] 36.2 kg/m2 No [facility] [facility] 01-30-2023 11:58-0500 Body weight 101.77 kg No Primary Care Physician [facility] 01-30-2023 11:58-0500 Diastolic blood pressure 84 mm[Hg] No Primary Care Physician [facility] 01-30-2023 11:58-0500 Systolic blood pressure 134 mm[Hg] No Primary Care Physician [facility] 12-27-2022 14:39-0500 Body mass index (BMI) [Ratio] 36.5 kg/m2 No Primary Care Physician [facility] 12-27-2022 14:39-0500 Body weight 102.56 kg No Primary Care Physician [facility] 12-27-2022 14:39-0500 Diastolic blood pressure 86 mm[Hg] No Primary Care Physician [facility] 12-27-2022 14:39-0500 Systolic blood pressure 135 mm[Hg] No Primary Care Physician [facility] Encounters Encounter Date Encounter Type Care Provider Facility Start: 11-29-2024 End: 11-29-2024 Patient encounter procedure Kavitha MATHEWS -[facility] Work Phone: Start: 11-29-2024 End: 11-29-2024 ambulatory No Primary Care Physician Facility:[facility] Start: 11-16-2024 End: 11-16-2024 ambulatory MD NO PRIMARY CARE [facility] Start: 11-02-2024 End: 11-02-2024 Patient encounter procedure Liane LOPEZ -[facility] Work Phone: Start: 11-02-2024 End: 11-02-2024 ambulatory No Primary Care Physician [facility] Start: 11-01-2024 End: 11-01-2024 ambulatory NO PRIMARY CARE [facility] Start: 10-05-2024 End: 10-05-[address] Latoya Marquez DO -[facility] Work Phone: Start: 10-05-2024 End: 10-05-2024 ambulatory No Primary Care Physician -[facility] Start: 09-06-2024 End: 09-06-[address] Mickie Murray MD -[facility] Work Phone: Start: 09-06-2024 End: 09-06-2024 ambulatory No Primary Care Physician -[facility] Start: 09-06-2024 End: 09-06-2024 ambulatory No Primary Care Physician Facility:[facility] Start: 08-05-2024 End: 08-05-2024 ambulatory No Primary Care Physician [facility] Work Phone: Start: 08-05-2024 End: 08-05-2024 Patient encounter procedure Kavitha Boyer CNM -[facility] Work Phone: Start: 08-05-2024 End: 08-05-2024 Patient encounter procedure [facility]er [facility] Work Phone: Start: 08-05-2024 End: 08-05-2024 ambulatory No Primary Care Physician [facility] Work Phone: Start: 08-05-2024 End: 08-05-2024 ambulatory Kavitha Merlin Facility:[facility] Start: 06-24-2023 Non-patient / Non-visit No Julia Casanova Physician [facility] Start: 06-23-2023 Non-patient / Non-visit No Julia rodriguez [facility] Physician [facility] Start: 06-22-2023 Non-patient / Non-visit No Julia Casanova Physician [facility] Start: 06-21-2023 End: 06-24-2023 Evaluation and management of inpatient No [facility] Work Phone: Start: 06-21-2023 Non-patient / Non-visit No Julia Casanova Physician [facility] Start: 06-20-2023 End: 06-20-2023 ambulatory No Primary Care Physician [facility] Work Phone: Start: 06-20-2023 End: 06-20-2023 Patient encounter procedure No Primary Care Physician [facility] Work Phone: Start: 06-19-2023 Non-patient / Non-visit No Julia Casanova Physician [facility] Start: 06-19-2023 End: 06-19-2023 ambulatory No Primary Care Physician [facility] Work Phone: Start: 06-19-2023 End: 06-19-2023 Patient encounter procedure No Primary Care Physician [facility] Work Phone: Start: 06-16-2023 End: 06-16-2023 Patient encounter procedure No Primary Care Physician [facility] Work Phone: Start: 06-10-2023 End: 06-10-2023 Patient encounter procedure No Primary Care Physician [facility] Work Phone: Start: 06-03-2023 End: 06-03-2023 Patient encounter procedure No Primary Care Physician [facility] Work Phone: Start: 05-28-2023 End: 05-28-2023 ambulatory No Primary Care Physician [facility] Work Phone: Start: 05-28-2023 End: 05-28-2023 Patient encounter procedure No Primary Care Physician [facility] Work Phone: Start: 05-28-2023 End: 05-28-2023 Patient encounter procedure No Primary Care Physician [facility] Work Phone: Start: 05-13-2023 End: 05-13-2023 ambulatory No Primary Care Physician [facility] Work Phone: Start: 05-13-2023 End: 05-13-2023 Patient encounter procedure No Primary Care Physician [facility] Work Phone: Start: 04-28-2023 End: 04-28-2023 Patient encounter procedure No Primary Care Physician [facility] Work Phone: Start: 04-16-2023 End: 04-16-2023 Patient encounter procedure No Primary Care Physician [facility] Work Phone: Start: 03-27-2023 End: 03-27-2023 ambulatory No Primary Care Physician [facility] Work Phone: Start: 03-27-2023 End: 03-27-2023 Patient encounter procedure No Primary Care Physician [facility] Work Phone: Start: 03-05-2023 End: 03-05-2023 Subsequent hospital visit by physician Xiao Horowitz MD Work Phone: [facility] Comment on above: Screening, , for malformation by ultrasound Start: 02-27-2023 End: 02-27-2023 Patient encounter procedure No Primary Care Physician [facility] Work Phone: Start: 01-30-2023 End: 01-30-2023 Patient encounter procedure No Primary Care Physician [facility] Work Phone: Start: 12-27-2022 End: 12-27-2022 Patient encounter procedure No Primary Care Physician [facility] Work Phone: Start: 12-12-2022 End: 12-12-2022 Patient encounter procedure No Primary Care Physician [facility] Start: 05-30-2021 End: 05-30-2021 ambulatory Yareli Lemus MD Work Phone: Neurology Comment on above: Procedure test results Start: 05-30-2021 E-mail encounter fro m caregiver Yareli Lemus MD Work Phone: [facility] Start: 05-30-2021 End: 05-30-2021 Patient encounter procedure Autonomic 1 Neur Main Work Phone: [facility] Start: 05-28-2021 End: 05-28-2021 ambulatory [facility] Neurology Comment on above: Procedure Start: 05-28-2021 End: 05-28-2021 Patient encounter procedure Autonomic 2 Neur Main [facility] Start: 04-29-2017 Ambulatory LAINEY Myers ity:[facility] Jared Emery Start: 03-24-2017 End: 03-25-2017 Emergency department patient visit EV SIDDIQUI [facility] Start: 02-14-2017 Ambulatory RACHEL VALENCIA Facdiego lity:UNKNOWN Start: 02-06-2017 Ambulatory GABRI[facility]LLA DUARTE [facility] Procedures Date Procedure Procedure Detail Performing [...] HCV Quant by PCR testing - HCVPCR #[id number] Non Reactive: < 0.8 Equivocal: >/= 0.8 to < 1.0 Reactive: >/= 1.0The CDC requires that a reactive/equivocal HCV antibody result be sent out for confirmation. HCV Quant by PCR testing. Start: 09-06-2024 Rubella IgG measurement No Primary Care Physician Comment on above: Antibody Result: Int erpretationNon-Reactive: Non- ImmuneReactive: ImmuneThe following results were obtained with the [employer] Rubella IgG assay. Results from assays of [...] section Previous c esarean section Liane Archer [employer] H/O: section Previous c esarean section Kavitha Boyer CNM Plan of Treatment Date Care Activity Detail Author Start: 11-29-2024 Measurement of glucose 2 hours after glucose challenge for glucose tolerance test [facility] Start: 11-29-2024 Serologic test for syphilis [facility] Start: 11-29-2024 [facility] Start: 11-02-2024 CBC W Auto Differential panel - Blood [facility] Start: 11-02-2024 Comprehensive metabolic 2000 panel - Serum or Plasma [facility] Start: 11-02-2024 Protein/Creatinine [Ratio] in Urine [facility] Start: 09-06-2024 CBC W Auto Differential panel - Blood [facility] Start: 09-06-2024 Hemoglobin A1c/Hemoglobin.total in Blood [facility] Start: 09-06-2024 Hepatitis C antibody measurement [facility] Start: 09-06-2024 Rubella IgG measurement [facility] Start: 09-06-2024 Serologic test for syphilis [facility] Start: 09-06-2024 [facility] Start: 06-24-2023 Patient discharge [facility] Start: 06-22-2023 Application of abdominal corset [facility] Start: 06-22-2023 [facility] Start: 06-22-2023 Administration of blood product [facility] Start: 06-22-2023 Administration of blood product [facility] Start: 06-22-2023 Transfusion of blood product [facility] Start: 06-22-2023 Transfusion of red blood cells [facility] Start: 06-21-2023 Administration of medication [facility] Start: 06-21-2023 Ambulation therapy management [facility] Start: 06-21-2023 Application of device [facility] Start: 06-21-2023 End: 06-21-2023 Application of intermittent pneumatic compression device [facility] Start: 06-21-2023 Assessment of risk of venous thromboembolism [facility] Start: 06-21-2023 Catheterization of vein [facility] Start: 06-21-2023 Deep breathing and coughing exercises [facility] Start: 06-21-2023 Exercises [facility] Start: 06-21-2023 Measuring intake and output [facility] Start: 06-21-2023 Notification of physician [facility] Start: 06-21-2023 Procedure discontinued [facility] Start: 06-21-2023 Provision of activity privileges [facility] Start: 06-21-2023 Skin care [facility] Start: 06-21-2023 Vital signs measurements [facility] Start: 06-21-2023 Wound care [facility] Start: 06-21-2023 Application of abdominal corset [facility] Start: 06-21-2023 End: 06-21-2023 [facility] Start: 06-21-2023 Admission procedure [facility] Start: 06-20-2023 Nonstress test [facility] Start: 06-20-2023 Obstetric monitoring [facility] Start: 06-20-2023 Vital signs measurements [facility] Start: 06-20-2023 End: 06-21-2023 [facility] Start: 06-20-2023 Patient discharge [facility] Start: 06-19-2023 Nonstress test [facility] Start: 06-19-2023 Obstetric monitoring [facility] Start: 06-19-2023 Vital signs measurements [facility] Start: 06-19-2023 [facility] Start: 2022 FLU (#1) FLU (#1) [facility] Start: 04-11-2022 Adult depression screening assessment DEPRESSION SCREENING [facility] Start: 2021 Influenza vaccination INFLUENZA (Season Ended) [facility] Start: 10-17-2016 Microscopic observation [Identifier] in Cervix by Cyto stain Pap Smear [facility] Start: 10-17-2016 PAP TESTING PAP TESTING [facility] Start: 10-17-2014 Urine microalbumin profile DTAP,TDAP,TD (1 - Tdap) [facility] Start: 2011 MenB (1 of 2 - MenB 2-Dose Series Bexsero) MenB (1 of 2 - MenB 2-Dose Series Bexsero) [facility] Start: 10-17-2009 PEDS TO ADULT TRANSITION ANNUAL ASSESSMENT PEDS TO ADULT TRANSITION ANNUAL ASSESSMENT [facility] Start: 2007 PEDS TO ADULT TRANSITION INITIAL DISCUSSION PEDS TO ADULT TRANSITION INITIAL DISCUSSION [facility] Start: 10-17-2006 HPV VACCINE (1 - 2-dose series) HPV VACCINE (1 - 2-dose series) [facility] Start: 10-17-2002 Tetanus Diphtheria and Pertussis Vaccines (1 - Tdap) Tetanus Diphtheria and Pertussis Vaccines (1 - Tdap) [facility] Start: 10-17-2000 COVID-19 VACCINE (1) COVID-19 VACCINE (1) [facility] Start: 10-17-1996 MMR (1 of 1 - Standard series) MMR (1 of 1 - Standard series) [facility] Start: 10-17-1996 Varicella (1 of 2 - 2-dose childhood series) Varicella (1 of 2 - 2-dose childhood series) [facility] Start: 04-16-1996 COVID-19 (#1) COVID-19 (#1) [facility] Start: 1995 Hepatitis B (1 of 3 - 3-dose series) Hepatitis B (1 of 3 - 3-dose series) [facility] Alanine aminotransfe rase [Enzymatic activity/volume] in Serum or Plasma [facility] Albumin [Mass/volume ] in Serum or Plasma [facility] Alkaline phosphatase [Enzymatic activity/volume] in Serum or Plasma [facility] Anion gap in Serum o r Plasma [facility] Bilirubin, total measurement [facility] BUN/Creatinine ratio [facility] Calcium [Mass/volume ] in Serum or Plasma [facility] Carbon dioxide, tota l [Moles/volume] in Central venous blood [facility] CBC W Auto Different ial panel - Blood [facility] CBC W Auto Different ial panel - Blood [facility] Chlamydia deoxyribon ucleic acid detection [facility] CMV IgG Ab CMV IgG Ab Lab R outine Screening, , for malformation by ultrasound 03/05/2023 4:05 PM EST [facility] CMV IgM Ab CMV IgM Ab Lab R outine Screening, , for malformation by ultrasound 03/05/2023 4:05 PM EST [facility] Creatinine [Mass/vol ume] in Serum or Plasma [facility] Creatinine [Mass/vol ume] in Urine collected for unspecified duration [facility] Erythrocyte mean corpuscular volume determination [facility] Erythrocyte mean corpuscular volume determination [facility] Glucose [Mass/volume ] in Serum or Plasma [facility] Hematocrit [Volume Fraction] of Blood [facility] Hematocrit [Volume Fraction] of Blood [facility] Hemoglobin [Mass/vol ume] in Blood [facility] Hemoglobin [Mass/vol ume] in Blood [facility] Hemoglobin A1c/Hemoglobin.total in Blood [facility] Hepatitis B virus chicas rface Ag [Presence] in Serum [facility] Hepatitis C antibody measurement [facility] Leukocytes [#/volume ] in Blood [facility] Leukocytes [#/volume ] in Blood [facility] Mean corpuscular hem oglobin concentration determination [facility] Mean corpuscular hem oglobin concentration determination [facility] Mean corpuscular hem oglobin determination [facility] Mean corpuscular hem oglobin determination [facility] Measurement of renal function [facility] Neutrophil count [facility] Neutrophil count [facility] Neutrophil percent differential count [facility] Neutrophil percent differential count [facility] Patient Education [facility] Work Phone: Patient referral [facility] Work Phone: Platelets [#/volume] in Blood [facility] Platelets [#/volume] in Blood [facility] Potassium measurement [facility] Protein [Mass/volume ] in Urine [facility] Protein/Creatinine [ Mass Ratio] in Urine [facility] Red blood cell count [facility] Red blood cell count [facility] Red cell distributio n width determination [facility] Red cell distributio n width determination [facility] Rubella IgG measurement [facility] Serologic test for syphilis [facility] Serum chloride measurement [facility] Sodium measurement [facility] Total protein measurement [facility] Toxoplasma IgM Ab Toxoplasma IgM Ab Lab Routine Screening, , for malformation by ultrasound 03/05/2023 4:05 PM EST [facility] Work Phone: Urea nitrogen [Mass/ volume] in Serum or Plasma [facility] Immunization Date Immunization Notes Care Provider Fa cility 05-13-2023 tetanus toxoid, redu gail diphtheria toxoid, and acellular pertussis vaccine, adsorbed No Primary Care Physician [facility] Payers Date Payer Category Payer Self-pay [id number] 2024 Unknown [id number] 2022 Unknown [employer] [id number] 2022-Present [address] [place] [address] [id number] 2020 Unknown [employer] PPO [id number] 2020-Present [phone] [address] [place] [address] PPO [id number] 2017 Private Health Insurance [id number] 1995 Unknown [id number] 1995 Unknown [id number] Private Health Insurance [id number] Private Health Insurance [id number] Unknown [id number] Unknown [id number] Unknown [id number] Unknown [id number] Unknown [id number] Unknown [id number] Unknown [id number] Unknown [id number] Social History Date Type Detail Facility Start: 01-21-2017 End: 08-05-2024 Tobacco smoking status NHIS Never smoked tobacco [facility] Start: 01-21-2017 End: 03-05-2023 Tobacco use and exposure Smokeless tobacco non-user [facility] Start: 04-13-2021 Alcohol intake Ex-drinker (finding) [facility] Start: 1995 Sex Assigned At Female C [facility] Start: 04-23-2021 End: 05-03-2021 Exposure to SARS-CoV-2 (event) Not sure [facility] Start: 03-05-2023 Alcohol intake Lifetime non-d kalin (finding) [facility] Start: 03-05-2023 History of Social function [facility] Start: 03-05-2023 Tobacco use panel [facility] Start: 09-29-2022 [facility] Start: 1995 Sex Assigned At Not on file [facility] Start: 03-27-2023 End: 06-21-2023 Tobacco smoking status NHIS Unknown if ever smoked [facility] Sexual Orientation Heterosexual (finding) [facility] Medical Equipment Procedure Code Equipment Code [...] Assessment Result Facility 06-22-2023 Cognitive function Voice/Name [facility] Work Phone: Clinical Notes 11-13-2020 to 11-29-2024 Note Date & Type Note Facility 11-29-2024 Progress note [facility] 11-02-2024 Progress note [facility] 10-05-2024 Progress note [facility] 09-06-2024 Evaluation note Diagnosis Onset Date Resolution [...] 9:45am Supervision of high-risk acute November 9:45am [facility] Work Phone: 1(453) 316-665306-19-2025 Evaluation note* Diagnosis Onset Date Resolution Status Admit Date H/O hemorrhage, currently acute August 05 10:36am Obesity affecting acute August 05, 2024 10:36am acute August 05 10:36am Previous section acute August 05, 2024 10:36am Supervision of high-risk acute August 05, 2024 10:36am [facility] Work Phone: 1(858) 634-586306-19-2025 Evaluation note* Diagnosis Onset Date Resolution Status [...] of high-risk acute September 06, 2024 8:24am [facility] Work Phone: 1(532) 613-272606-19-2025 Evaluation note* Diagnosis Onset Date Resolution Status [...] Supervision of high-risk acute October 05 9:11am [facility] Work Phone: 1(539) 684-501006-19-2025 Evaluation note* Diagnosis Onset Date Resolution Status [...] of high-risk acute November 02, 2024 8:04am [facility] [employer] Work Phone: 1(570) 848-747305-07-2024 Discharge summary Author Liane Archer [facility] June 24, 2023 7:48am Note Date/Time June 24, 2023 7:48am [facility] Medical Records Department [address] [place] [address] Discharge Summary 06/24/23 0745 MR#: [id number] Acct: [id number] Name: KARLA TUTTLE Rep #:[id number] : 1995 27 From: Liane Archer NP [employer] PCP: Care Physician,No Primary Status :ADM IN Location: [place] [address] Providers Date of Admission: 06/21/23 Primary Care [...] no.1 1 mg-dha 300 mg capsule (PNV- Chalfont) 1 cap PO DAILY 11/26/22 Hospital Course [...] Up With: Latoya Marquez DO When: Call [phone] to make an appointment for an incision [...] Physician,No Primary Discharge Orders/Prescriptions Prescriptions: No Action PNV-Chalfont 28-1-300 mg capsule 1 cap PO DAILY Referrals / Follow Up: Care Physician,No Primary [Primary Care Provider] - 06/24/23 0748 <Electronically signed by Liane Archer NP [employer]> Cosigner Signature (if applicable): CC: [employer] Liane Archer; No Primary Care Physician~ Signed [facility] Work Phone: 1(924) 253-175805-07-2024 Progress note Author Liane Archer [facility] June 24, 2023 7:45am Note Date/Time June 24, 2023 7:46am [facility] Medical Records Department [address] [place] [address] Progress Note - OBGYN 06/24/23 0743 MR#: [id number] Acct: [id number] Name: KARLA TUTTLE Rep #:[id number] : 1995 27 From: Liane Archer NP [employer] PCP: Care Physician,No Primary Status :ADM IN Location: [place] [address]1 Subjective Subjective Patient doing well without complaints. [...] 0745 <Electronically signed by Liane Archer NP [employer]> Cosigner Signature (if applicable): CC: ~ Signed [facility] Work Phone: 1(190) 635-333305-06-2024 Progress note Author Kaivtha Boyer [facility] June 23, 2023 8:09am Note Date/Time June 23, 2023 8:09am [facility] Medical Records Department [address] [place] [address] Progress Note - OBGYN 06/23/23 0808 MR#: [id number] Acct: [id number] Name: KARLA TUTTLE Rep #:[id number] : 1995 27 From: Kavitha Boyer CNM PCP: Care Physician,No Primary Status :ADM IN Location: [place] [address]1 Subjective Subjective Patient doing well without complaints. [...] 77.4 H, Lymph % (Auto) 13.2 L, Mariposa % (Auto) 6.6, Eos % (Auto) 1.6, [...] of normal first , second trimester COMMENT: [id number], FLOR 06/22/23,girl Paige Alberto (10) : QUALIFIERS: Weeks of gestation: 39 weeks Qualified Code(s): Z3A.39 - 39 weeks gestation of COMMENT: Neg GBS. declined genetic & carrier testing Charges/Coding Multi Select Codes Urinary/Genital Urinary/Genital CPT Codes: No Charge 06/23/23 0809 <Electronically signed by Kavitha Boyer CNM> Cosigner Signature (if applicable): CC: ~ Signed [facility] Work Phone: 1(489) 938-824405-05-2024 Progress note Author rTish Beckman [facility] June 22, 2023 10:15am Note Date/Time June 22, 2023 10:03a m [facility] Medical Records Department [address] [place] [address] Progress Note - OBGYN 06/22/23 0958 MR#: [id number] Acct: [id number] Name: KARLA TUTTLE Rep #:[id number] : 1995 27 From: Trish Beckman CNM PCP: Care Physician,No Primary Status :ADM IN Location: [place] [address] Subjective Subjective Patient doing well without complaints. 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 06/21/23 1815 MR#: [id number] Acct: [id number] Name: KARLA TUTTLE Rep #:[id number] : 1995 27 From: Trish Beckman CNM PCP: Care Physician,No Primary Status :ADM IN Location: [id number] HPI - General General Date of Admission: [...] no.1 1 mg-dha 300 mg capsule (PNV- Chalfont) 1 cap PO DAILY 11/26/22 [History Last Taken 06/20/23] Allergy/AdvReac Type Severity Reaction Status Date / Time No Known Allergies Allergy Verified 06/21/23 06:47 Family History Grandmother Breast cancer, Onset Age: 70 Paternal Thyroid disorder Paternal- hyperthyroid Aunt Cancer Maternal - thyroid Surgical History [place] teeth removed Social History adopted: No household members: spouse current occupational status: employed current occupation: [employer] current occupational exposures/hazards: No pets and animals: [...] physical activity do you participate in: none tez/yarsani: None seatbelt use: always do you feel safe at home: Yes additional 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 06/03/23 -?-?-?-?-?-?-?-?-?-?-?-?- 37w 2d 231 lb 6 [...] of normal first , second trimester COMMENT: [id number], FLOR 06/22/23,girl Paige Alberto (2) : QUALIFIERS: [...] complications: none I have reviewed the [facility] and made any clinically relevant updates. Dr. Pastrana updated on admission, exam and poc at 0531. delayed H&P 06/21/238 <Electronically signed by Trish Beckman CNM> Cosigner Signature (if applicable): CC: MARISOL Beckman; No Primary Care Physician~ Signed [facility] Work Phone: 1(876) 240-411705-04-2024 Discharge summary Author Latoya Newman [facility] June 21, 2023 6:22pm Note Date/Time June 21, 2023 6:22pm [facility] Medical Records Department [address] [place] [address] Instructions for Home/Discharge Instructions 06/21/23 1822 MR#: [id number] Acct: [id number] Name: KARLA TUTTLE Rep #:[id number] : [...] Up With: Latoya Marquez DO When: Call [phone] to make an appointment for an incision check in 1-2 weeks. Test Results: Test results from this visit will be discussed in further detail at your follow- up appointment, if applicable. Discharge Plan Admission Admit Date/Time: 06/21/23 05:26 Attending Provider: Latoya Marquez Primary Care Provider: Edilberto PhysicianNajma Primary Discharge Orders/Prescriptions Prescriptions: No Action PNV-Chalfont 28-1-300 mg capsule 1 cap PO DAILY Referrals / Follow Up: Edilberto Physician,Najma Primary [Primary Care Provider] - 06/21/23 1822<Electronically signed by Latoya Marquez DO>Latoya Marquez DO CC: No Primary Care Physician ~ Signed [facility] Work Phone: 1(683) 603-112405-04-2024 Procedure [facility] 06-21-2023 Procedure [facility]05-04-2024 Consult note Author Trish Beckman [facility] June 21, 2023 2:44pm Note Date/Time June 21, 2023 2:44pm [facility] Medical Records Department [address] [place] [address] Consultation 06/21/23 1435 MR#: [id number] Acct: [id number] Name: KARLA TUTTLE Rep #:[id number] : 1995 27 From: Trish Beckman CNM PCP: Edilberto [place],No Primary Status :ADM IN Location: [id number] Consult Date of Consult: 06/21/23 Assessment & Plan Assessment/Plan (1) Maternal fever affecting labor: PLAN: Plan pt fully dilated, second stage developed tachycardia to 180, maternal tempto 100.5. IV fluids, and Tylenol provided. current tracing: FHT: Moderate variability reactive no decelerations category II tracing, tachycardia trending downward to 165 baseline. Searchlight: q3.5 minutes Contractions reviewed tracing abnormalities since [...] applicable): CC: No Primary Care Physician~ Signed [facility] Work Phone: 1(746) 256-653805-23-2022 NoteHNO ID: [id number] Author: Kaitlin Montilla APRN.CNM Service: ? Author Type: Press Puller Type: Progress Notes Filed: 07/09/2021 10:31 AM [...] OB History No obstetric history on file. 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04-13-2022 NoteHNO ID: [id number] Author: Dolly Bermudez Service: ? Author Type: [...] of Care Visit completed when applicable. [facility] [place] History of Present illness Narrative* Dolly Bermudez [...] when applicable. Dolly Bermudez [facility]2022 NoteHNO ID: [id number] Author: Naila Berry Service: ? Author Type: [...] of Care Visit completed when applicable. Naila Aguilarnadege[facility] [place]20[facility] History of Present illness Narrative* Naila Rodriges [...] when applicable. Naila Aguilarnadege [facility]-2022 NoteHNO ID: [id number] Author: RT Ronnell(R) Service: ? Author Type: [...] BY: RT Ronnell(R) May 01, 2021 2:40 [facility]02-25-2022 NoteHNO ID: [id number] Author: Yareli Lemus MD Service: ? Author Type: Physician Type: Progress Notes Filed: 04/13/2021 10:33 AM Note Text: General Neurology Outpatient Clinic - new patient evaluation Date: April 13, 2021 Patient Name: Karla Tuttle Referring physician: Shelley Overton [address] [facility] [address] [facility] [address] Primary [place]: [place] [address] [place] [address] Reason for Evaluation: lightheadedness HPI: The pt [...] table evaluation but those records are unavailable. 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 Author [...] injection (DEFINITY) INTRAVENOUS DIRECTED PRN Rachel Moon, SENIOR MANUFACTURING ENGINEER.[employer] - sodium chloride 0.9 % (flush) 10 mL (BD POSIFLUSH) 10 mL INTRAVENOUS DIRECTED PRN Rachel Moon APRN.[employer] Review of Systems Constitutional: Negative for chills, [...] and oriented t (more content not included)... [facility]01-03-2022 NoteHNO ID: [id number] Author: Shelley Overton APRN.MAGALIS Service: ? Author Type: Nurse Practitioner Type: Progress Notes Filed: 02/21/2021 10:15 AM Note Text: [facility] SE[facility] REGIONAL CARDIOLOGY Cardiology ([place] [facility] [address] [facility] [id number] OUTPATIENT VISIT February 19, 2021 2:00 PM [...] injection (DEFINITY) INTRAVENOUS DIRECTED PRN Rachel Moon APRN.[employer] - sodium chloride 0.9 % (flush) 10 mL (BD POSIFLUSH) 10 mL INTRAVENOUS DIRECTED PRN Rachel Moon APRN.[employer] Review of Systems Constitutional: Negative for chills, [...] kg) Physical Exam HENT: (more content not included)...[facility]10-01-2021 NoteHNO ID: [id number] Author: Ashlee Golden MD Service: Interventional Cardiology Author Type: Physician Type: Procedures Filed: 12/21/2020 10:21 AM Note Text: Patient Name: Karla Tuttle : 1995 Ordering Provider: RACHEL MOON Indication: R00.2 Palpitations Type of Monitor: Extended Monitoring-Zio Patch Enrollment Dates: 11/23/2020-12/07/2020[facility]09-27-2021 Note HNO ID: [id number] Author: Rachel Moon APRN.[employer] Service: ? Author Type: Nurse Practitioner Type: [...] [facility]. Dr. Natalio perry/ [facility]. Neurology. Has never had an echo. Has [...] 1.1 MG/ML INJECTION IN (more content not included)...[facility] Diagnosis Paresthesia of skin- Primary Disturbance of skin sensation Orthostatic lightheadedness Dizziness and giddiness documented [facility] encounter [facility] Diagnosis Orthostatic lightheadedness- Primary Dizziness and giddiness [facility] Diagnosis Screening, , for malformation by ultrasound Encounter for routine screening for malformation using ultrasonics [facility] Diagnosis Onset Date Resolution Status Obesity affecting , antepartum acute acute Supervision of normal first acute Obesity affecting , antepartum acute acute Supervision of normal first acute Abnormal ultrasound ac platinum Obesity affecting , antepartum acute acute Supervision of normal first acute Abnormal ultrasound ac platinum Anemia in preg-unspec acute Obesity affecting , antepartum acute acute Supervision of normal first acute [facility] Work Phone: Evaluation note* Diagnosis Onset Date Resolution Status Obesity affecting , antepartum acute acute Supervision of normal first acute Abnormal ultrasound ac platinum Obesity affecting , antepartum acute acute Supervision of normal first acute Abnormal ultrasound ac platinum Anemia in preg-unspec acute Obesity affecting , antepartum acute acute Supervision of normal first acute Abnormal ultrasound ac platinum Abnormal glucose complicating childbirth acute Anemia in preg-unspec acute Obesity affecting , antepartum acute acute Supervision of normal first acute Abnormal ultrasound ac platinum Abnormal glucose complicating childbirth acute Anemia in preg-unspec acute Obesity affecting , antepartum acute acute Supervision of normal first acute Abnormal ultrasound ac platinum Abnormal glucose complicating childbirth acute Anemia in preg-unspec acute Obesity affecting , antepartum acute acute Supervision of normal first acute [facility] Work Phone: Evaluation note* Diagnosis Onset Date Resolution Status Abnormal ultrasound ac platinum Obesity affecting , antepartum acute acute Supervision of normal first acute Abnormal ultrasound ac platinum Anemia in preg-unspec acute Obesity affecting , antepartum acute acute Supervision of normal first acute Abnormal ultrasound ac platinum Abnormal glucose complicating childbirth acute Anemia in preg-unspec acute Obesity affecting , antepartum acute acute Supervision of normal first acute Abnormal ultrasound ac platinum Abnormal glucose complicating childbirth acute Anemia in preg-unspec acute Obesity affecting , antepartum acute acute Supervision of normal first acute Abnormal ultrasound ac platinum Abnormal glucose complicating childbirth acute Anemia in preg-unspec acute Obesity affecting , antepartum acute acute Supervision of normal first acute Abnormal ultrasound ac platinum Abnormal glucose complicating childbirth acute Anemia in preg-unspec acute Obesity affecting , antepartum acute acute Supervision of normal first acute [facility] Work Phone: Evaluation note* Diagnosis Onset Date Resolution Status Abnormal ultrasound ac platinum Obesity affecting , antepartum acute acute Supervision of normal first acute Abnormal ultrasound ac platinum Anemia in preg-unspec acute Obesity affecting , antepartum acute acute Supervision of normal first acute Abnormal ultrasound ac platinum Abnormal glucose complicating childbirth acute Anemia in preg-unspec acute Obesity affecting , antepartum acute acute Supervision of normal first acute Abnormal ultrasound ac platinum Abnormal glucose complicating childbirth acute Anemia in preg-unspec acute Obesity affecting , antepartum acute acute Supervision of normal first acute Abnormal ultrasound ac platinum Abnormal glucose complicating childbirth acute Anemia in preg-unspec acute Obesity affecting , antepartum acute acute Supervision of normal first acute Abnormal ultrasound ac platinum Abnormal glucose complicating childbirth acute Anemia in preg-unspec acute Obesity affecting , antepartum acute acute Supervision of normal first acute Abnormal ultrasound ac platinum Abnormal glucose complicating childbirth acute Anemia in preg-unspec acute Obesity affecting , antepartum acute acute Supervision of normal first acute Abnormal ultrasound ac platinum Abnormal glucose complicating childbirth acute Anemia in preg-unspec acute Obesity affecting , antepartum acute acute Supervision of normal first acute Abnormal ultrasound ac platinum Abnormal glucose complicating childbirth acute Anemia in preg-unspec acute Obesity affecting , antepartum acute acute Supervision of normal first acute [facility] Work Phone: Evaluation note* Diagnosis Onset [...] acute resolved Supervision of normal first resolved [facility] Work Phone: Evaluation noteNo assessment information available [facility] Work Phone: Progress note Author Mickie Murray [facility] June 19, 2023 5:15pm Note Date/Time June 19, 2023 5:15pm [facility] Medical Records Department [address] [facility] [place] [address] OB Triage Progress Note 06/19/231713 MR#: [id number] Acct: [id number] Name: KARLA TUTTLE Rep #:[id number] : 1995 27 From: Mickie obrien MD PCP: Care Physician,No Primary Status :REG CLI Y DOS: Location: [place] [address] Progress Notes Progress Note: Patient presents for triage evaluation secondary to decresaed movement FHT: 140 Moderate variability reactive no decelerations category I tracing Searchlight: irregular Contractions Assessment and plan: decreased movement- now feeling some, Reactive NST, reassuring maternal and status patient discharged to home to follow-up as scheduled, reviewed kick count precautions. See problem list details for additional plan information. Charges/Coding Procedures Urinary/Genital 52xxx-59xxx: 95169-99 non-stress test Interp 06/19/231714 <Electronically signed by Mickie armenta MD> Date _ Mickie Murray MD Cosigner Signature (if applicable): Date CC: Dr. Mickie Murray MD; No Primary Care Physician ~ Signed [facility] Work Phone: Progress note Author Latoya Newman [facility] Note Date/Time October 05, 2024 9: 56am [facility] [address], [address] [place] [address] OFFICE VISIT Date of Service: 10/05/24 MR#: [id number] Acct: [id number] Name: DWAINKARLA PONCE Rep #: [id number] : 1995 Provider: Dr. Gauri Marquez DO Age/Sex: 28/F Location: [facility] Status: Signed Intake Vital Signs 08/05/24 10:38 09/06/24 08:29 10/05/24 09:36 10/05/24 09:56 Height 5 ft 6 in 5 ft 6 in 5 ft 6 in Weight: 220 lb 9.6 oz BP 134/76 H Intake Visit Reasons: 15wk ob Debate Director Required: No Is patient in pain?: No Allergies No Known Allergies Allergy (Verified 10/05/24 09:36) Medications ?Medication ?Instructions ?Recorded ?Confirmed ?Type multivit-min no.71-iron fum 28 1 cap PO DAILY pregnanc y 11/26/22 10/05/24 History mg-folate no.1 1 mg-dha 300 mg capsule (PNV-Chalfont) Last Menstrual Period: 06/02/24 Zika: Zika virus screening: Negative : No PFSH PFSH Medical History Anemia in preg-unspec Chorioamnionitis, delivered, current hospitalization hemorrhage delivery delivered False labor Abnormal ultrasound Congenital abnormality ureter Surgical History Previous section [place] teeth removed Family History Grandmother Breast cancer, Onset Age: 70 Paternal Thyroid disorder Paternal- hyperthyroid Aunt Cancer, Onset Age: 53 Maternal - thyroid Social History adopted: No household members: spouse housing: house number of children: 1 current occupational status: employed current occupation: [employer] current occupational exposures/hazards: No pets and animals: [...] frequency: does not exercise duration: 45-60 minutes/day tez/yarsani: None seatbelt use: always do you feel safe at home: Yes 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 Date Name GA/Weeks Outcome Route Bth Weight Infant Gen Labor Lgth Anesthesia Del Locatn Provider FOB 06/21/23 Paige 39 live - full term 6#12 Female [facility] Dr. Hidalgo Delivery Date: 06/21/23 Last [...] and Symptoms of Preeclampsia, Feeding No , [place] Education and Family Medical Leave or Disability [...] Cosigner Signature: Date (if applicable) CC: ~ [facility] Work Phone: Progress note Author Liane Archer [facility] Note Date/Time November 02, 2024 8:36am [facility] [address] [place] [address], [address] [place] [address] OFFICE VISIT Date of Service: 11/02/24 MR#: [id number] Acct: [id number] Name: KARLA DEGROOT Rep #: [id number] : 1995 Provider: JESSICA Archer Age/Sex: 29/F Location: [facility] Status: Signed Intake Vital Signs 08/05/24 10:38 10/05/24 09:36 11/02/24 08:07 11/02/24 08:11 Height 5 ft 6 in 5 ft 6 in 5 ft 6 in 5 ft 6 in Weight: 220 lb BMI 35.5 BP 119/74 Intake Visit Reasons: 20wk ob Chief Complaint: 20 Week OB Debate Director Required: No Is patient in pain?: No Allergies No Known Allergies Allergy (Verified 11/02/24 08:06) Medications ?Medication ?Instructions ?Recorded ?Confirmed ?Type multivit-min no.71-iron fum 28 1 cap PO DAILY pregnanc y 11/26/22 11/02/24 History mg-folate no.1 1 mg-dha 300 mg capsule (PNV-Chalfont) Last Menstrual Period: 06/02/24 Zika: Zika virus screening: Negative : No PFSH PFSH Medical History Anemia in preg-unspec Chorioamnionitis, delivered, current hospitalization hemorrhage delivery delivered False labor Abnormal ultrasound Congenital abnormality ureter Surgical History Previous section [place] teeth removed Family History Grandmother Breast cancer, Onset Age: 70 Paternal Thyroid disorder Paternal- hyperthyroid Aunt Cancer, Onset Age: 53 Maternal - thyroid Social History adopted: No household members: spouse housing: house number of children: 1 current occupational status: employed current occupation: [employer] current occupational exposures/hazards: No pets and animals: [...] frequency: does not exercise duration: 45-60 minutes/day tez/yarsani: None seatbelt use: always do you feel safe at home: Yes 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 Date Name GA/Weeks Outcome Route Bth Weight Infant Gen Labor Lgth Anesthesia Del Locatn Provider FOB 06/21/23 Paige 39 live - full term 6#12 Female [facility] Dr. Marquez Alberto Delivery Date: 06/21/23 [...] Symptoms of Preeclampsia, Infant Feeding No , [place] Education and Family Medical Leave or Disability [...] 0836 <Electronically signed by Liane sunshine NP [employer]-C> Date _ Liane Archer NP [employer] Cosigner Signature: Date (if applicable) CC: ~ [facility] Work Phone: Progress note Author Kavitha Boyer [facility] Note Date/Time November 29, 2024 1 0:04am [facility] [address] [place] [address], [address] [place] [address] OFFICE VISIT Date of Service: 11/29/24 MR#: [id number] Acct: [id number] Name: KARLA DEGROOT Rep #: [id number] : 1995 Provider: MARISOL Boyer Age/Sex: 29/F Location: [facility] Status: Signed Intake Vital Signs 11/02/24 08:11 11/29/24 09:48 Height 5 ft 6 in 5 ft 6 in Weight: 219 lb 5 oz BMI 35.4 BP 113/75 Intake Visit Reasons: 24wk ob *move 01/11 appt Chief Complaint: 24wk OB Debate Director Required: No Is patient in pain?: No Allergies No Known Allergies Allergy (Verified 11/29/24 09:47) Medications ?Medication ?Instructions ?Recorded ?Confirmed ?Type multivit-min no.71-iron fum 28 1 cap PO DAILY pregnanc y 11/26/22 11/29/24 History mg-folate no.1 1 mg-dha 300 mg capsule (PNV-Chalfont) Last Menstrual Period: 06/02/24 : No Have you fallen in the past year?: No PFSH PFSH Medical History Anemia in preg-unspec Chorioamnionitis, delivered, current hospitalization hemorrhage delivery delivered False labor Abnormal ultrasound Congenital abnormality ureter Surgical History Previous section [place] teeth removed Family History Grandmother Breast cancer, Onset Age: 70 Paternal Thyroid disorder Paternal- hyperthyroid Aunt Cancer, Onset Age: 53 Maternal - thyroid Social History adopted: No household members: spouse housing: house number of children: 1 current occupational status: employed current occupation: [employer] current occupational exposures/hazards: No pets and animals: [...] frequency: does not exercise duration: 45-60 minutes/day tez/yarsani: None seatbelt use: always do you feel safe at home: Yes 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 Date Name GA/Weeks Outcome Route Bth Weight Gen Labor Lgth Anesthesia Del Locatn Provider FOB 06/21/23 Paige 39 live - full term 6#12 Female [facility] Dr. 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 No September 20 4:48pm Advance Directive Response Recorded Date/ Time Living Will No September 20, 2020 5:48pm Power of Tool And Die Supervisor No September 20 5:48pm Advance Directive Response Recorded Date/ Time Living Will No June 21, 2023 6: 01am Power of Tool And Die Supervisor No June 21, 2023 6:01am Medications Administered [...] section and content) DATE CREATED AUTHOR 08/08/2017 [facility] DATE CREATED AUTHOR AUTHOR'S ORGANIZ ATION 08/11/2017 [facility] DATE CREATED AUTHOR AUTHOR'S ORGANIZ ATION 08/12/2017 [facility] DATE CREATED AUTHOR AUTHOR'S ORGANIZ ATION 07/18/2021 [facility] [place] DATE CREATED AUTHOR AUTHOR'S ORGANIZ ATION 11/21/2024 [facility] DATE CREATED AUTHOR AUTHOR'S ORGANIZ ATION 11/30/2024 [facility] Source Comments (unrecognize d section and content) In the event this informatio n is protected by the Federal Confidentiality of Alcohol and Drug Abuse Patient Records regulations: The Federal rules restrict any use of the information to criminally investigate or prosecute any alcohol or drug abuse patient.[facility] the event this information is protected by the Federal Confidentiality of Alcohol and Drug Abuse Patient Records regulations: The Federal rules restrict any use of the information to criminally investigate or prosecute any alcohol or drug abuse patient.[facility] the event this information is protected by the Federal Confidentiality of Alcohol and Drug Abuse Patient Records regulations: The Federal rules restrict any use of the information to criminally investigate or prosecute any alcohol or drug abuse patient.[facility] Reason for Visit (unrecogniz ed section and content) Reason Comments Procedure Specialty Diagnoses / Procedures Referred By Cha owens Referred To Contact Neurology / NEUROMUSCULAR Diagnoses Encounter for general adult medical examination without abnormal findings VM QSARt Procedures TESTING AUTONOMIC NERVOUS SYSTEM FUNCTION NEUR QSART Yareli Lemus MD [address] [place] [address] [facility] [place] [address] [place] [address] Referral ID Status Reason Start Date Expiration Date Visits Requested Visits Authorized [id number] Authorized Clearance Not Met - Admin/Chairm an/Director Advise to Postpone/Res chedule or Not Proceed 04/18/2021 05/08/2022 4 4 Care Teams (unrecognized sec tion and content) [employer] Loader Unloader Relationship Specialty Start Date End Date Wanda Fritz [id number] [place] [address] PCP - General Pediatrics 01/21/17 [employer] Loader Unloader Relationship Specialty Start Date End Date Wanda Fritz [id number] [place], [place] [id number] PCP - General Pediatrics 01/21/17 [employer] Printing Loader Unloader Relationship Specialty Start Date End Date Wanda Fritz [id number] [place] [address] PCP - General Pediatrics 01/21/17 Screen Printing Loader Unloader Relationship Specialty Start Date End Date No Primary Care, [place] [address] PCP - General Pediatrics 01/30/23 Team Status: [...] Provider, Refer ring Provider Active Liane Archer [employer], [employer] Attending Provider Active Team Status: Inactive Member Role Status Dates No Primary Care Physician Primary Care Provider Active Dr. Mickie Murray MD Attending Provider, Referr ing Provider Active Team Status: Inactive Member Role Status Dates No Primary Care Physician Primary Care Provider Active Liane Archer [employer], [employer] Attending Provider, Referring Provider Active Team Status: [...] Provider, Other Pr ovider Active Liane Archer [employer], [employer] Attending Provider Active Team Status: Inactive Member [...] 2024 End: November 02, 2024 Liane Archer [employer], [employer] Attending Provider Active Start: November 02, 2024 End: November 02, 2024 Team Status: Active Member Role/Relationship Status Dates No Primary Care Physician Primary Care Provider Active Start: November 02, 2024 Liane Archer [employer], [employer] Attending Provider Active Start: November 02, 2024 Liane Archer [employer], [employer] Referring Provider Active Start: November 02, 2024 [...] 2024 End: November 02, 2024 Liane Archer [employer], [employer] Attending physician Active Start: November 02, 2024 End: November 02, 2024 Team Status: Inactive Member Role/Relationship Status Dates No Primary Care Physician Primary care physician Activ e Start: November 02, 2024 End: November 02, 2024 Liane Archer NP, [employer] Attending physician Active Start: November 02, 2024 End: November 02, 2024 Liane Archer [employer], [employer] Referring Provider Active Start: November 02, 2024 [...] 2024 End: November 02, 2024 Liane Archer [employer], [employer] Attending physician Active Start: November 02, 2024 End: November 02, 2024 Team Status: Inactive Member Role/Relationship Status Dates No Primary Care Physician Primary care physician Activ e Start: November 02, 2024 End: November 02, 2024 Liane Archer [employer], [employer] Attending physician Active Start: November 02, 2024 End: November 02, 2024 Liane Archer [employer], [employer] Referring Provider Active Start: November 02, 2024 [...] BE BASED ON THE PRIMARY CLINICAL RECORDS. [facility]. provides no warranty or guarantee of the accuracy or completeness of information in this document.
== END 2025-02-03 14:22 | disposition home or self-care (01) ==
LOC: ED 12:50 → WPOUT 13:23 → ED 13:39 → WPOUT 13:42 → WP 13:42
PROVIDERS: Surgery; Emergency Provider Student in an Organized Health Care Education/Training Program; Visit Provider Student in an Organized Health Care Education/Training Program
DX: O99.891 Other specified diseases and conditions complicating pregnancy (principal); R55 Syncope and collapse; O23.40 Unspecified infection of urinary tract in pregnancy, unspecified trimester; Z3A.00 Weeks of gestation of pregnancy not specified
CPT/HCPCS: 96374; 96361 ×2; 59025; 80053; 81001; 85025; 87086; 87088; 93005; 99221; 99285; A4216; G0378; J2405